=== PATIENT | male | born 1960 | race Caucasian/White ===

== ENCOUNTER → 2017-09-14 13:49 | Outpatient (REF) | payer MEDICARE, SELFPAY ==
[2017-09-14 19:10] LABS: Basophils # 0.1 K/mm3 (0-0.2); Basophils % 1.3 % (0.1-2.0); Eosinophils # 0.3 K/mm3 (0.0-0.4); Eosinophils % 4.3 % (0.1-12.0); Hematocrit 37.6 % (42.0-52.0); Lymphocytes # 1.9 K/mm3 (0.7-4.5); Lymphocytes % 29.6 K/mm3 (10-50); Mean Corpuscular HGB Conc 32.1 g/dL (31.8-35.4); Mean Corpuscular Volume 87.4 fl (80-94); Mean Platelet Volume 7.5 fl (7.4-10.4); Monocytes # 0.4 K/mm3 (0.1-1.0); Monocytes % 6.4 % (1.7-9.3); Neutrophils # 3.8 K/mm3 (1.8-7.8); Neutrophils % 58.4 % (37.0-80.0); Platelet Count 271 K/mm3 (142-424); Red Cell Distribution Width 13.4 % (11.5-17.5); White Blood Count 6.4 K/mm3 (4.8-10.8)
[2017-09-14 19:43] LABS: Alanine Aminotransferase 11 U/L (12-78); Albumin Level 3.9 gm/dL (3.4-5.0); Albumin/Globulin Ratio 1.4 (1.1-1.8); Alkaline Phosphatase 123 U/L (46-116); Anion Gap 15.6 mEq/L (5-15); Aspartate Amino Transferase 10 U/L (15-37); Bilirubin,Total 0.3 mg/dL (0.2-1.0); Blood Urea Nitrogen 18 mg/dL (7-18); Calcium 8.4 mg/dL (8.5-10.1); Carbon Dioxide 23 mmol/L (21.0-32.0); Chloride 109 mmol/L (98-107); Chol/HDL Ratio 7.1 (1-3.5); Cholesterol 184 mg/dL (140-200); Creatinine,Serum 1.12 mg/dL (0.70-1.30); Estimated Glomerular Filt Rate 67 ml/min (>60); GFR (African American) 81 ML/MIN (>60); Globulin 2.7 gm/dl (1.3-3.2); Glucose 115 mg/dL (74-106); HDL Cholesterol 26 mg/dL (27-67); LDL Cholesterol 103 mg/dL (0-130); Potassium 4.6 mmoL/L (3.5-5.1); Sodium 143 mmol/L (136-145); T4 (Thyroxine) 4.4 ug/dl (4.7-13.3); Thyroid Stimulating Hormone 3.14 uIU/ml (0.358-3.740); Total Protein,Serum 6.6 gm/dL (6.4-8.2); Triglycerides 277 mg/dL (30-200); VLDL Cholesterol 55 mg/dL (0-40)
[2017-09-17 17:12] LABS: Vitamin D 25 Hydroxy 23.6 ng/mL (30.0-100.0)
== END ==
LOC: LAB 13:49
PROVIDERS: Visit Provider Physician Assistant
DX: I10 Essential (primary) hypertension (principal); I25.10 Atherosclerotic heart disease of native coronary artery without angina pectoris; E78.5 Hyperlipidemia, unspecified; E55.9 Vitamin D deficiency, unspecified; F32.9 Major depressive disorder, single episode, unspecified; F41.9 Anxiety disorder, unspecified; Z28.21 Immunization not carried out because of patient refusal
CPT/HCPCS: 80053; 80061; 82652; 84436; 84443; 85025

== ENCOUNTER → 2017-12-14 14:54 | Outpatient (CLI) | payer MEDICARE, SELFPAY | PROVIDERS: Visit Provider Physician Assistant | DX: R07.9 Chest pain, unspecified (principal); I25.10 Atherosclerotic heart disease of native coronary artery without angina pectoris | CPT/HCPCS: 93005 ==

== ENCOUNTER → 2018-03-08 11:10 | Outpatient (REF) | payer MEDICARE, SELFPAY ==
[2018-03-08 18:02] LABS: Basophils # 0.1 K/mm3 (0-0.2); Eosinophils # 0.2 K/mm3 (0.0-0.4); Eosinophils % 2.6 % (0.1-12.0); Hematocrit 38.2 % (42.0-52.0); Hemoglobin 11.1 g/dL (14.1-18.0); Lymphocytes # 1.2 K/mm3 (0.7-4.5); Lymphocytes % 16.6 K/mm3 (10-50); Mean Corpuscular HGB Conc 29.2 g/dL (31.8-35.4); Mean Corpuscular Hemoglobin 24.4 pg (27.0-31.2); Mean Corpuscular Volume 83.8 fl (80-94); Mean Platelet Volume 7.6 fl (7.4-10.4); Monocytes # 0.6 K/mm3 (0.1-1.0); Monocytes % 7.7 % (1.7-9.3); Neutrophils # 5.3 K/mm3 (1.8-7.8); Neutrophils % 72.1 % (37.0-80.0); Platelet Count 285 K/mm3 (142-424); Red Blood Count 4.56 M/mm3 (4.60-6.20); Red Cell Distribution Width 14.6 % (11.5-17.5); White Blood Count 7.4 K/mm3 (4.8-10.8)
[2018-03-08 18:33] LABS: Alanine Aminotransferase 20 U/L (12-78); Albumin Level 3.6 gm/dL (3.4-5.0); Alkaline Phosphatase 100 U/L (46-116); Anion Gap 9.3 mEq/L (5-15); Aspartate Amino Transferase 20 U/L (15-37); Bilirubin,Total 0.3 mg/dL (0.2-1.0); Blood Urea Nitrogen 9 mg/dL (7-18); Calcium 8.8 mg/dL (8.5-10.1); Carbon Dioxide 29 mmol/L (21.0-32.0); Chloride 102 mmol/L (98-107); Chol/HDL Ratio 6.5 (1-3.5); Cholesterol 203 mg/dL (140-200); Digoxin 0.72 ng/mL (1.15-2.56); Estimated Glomerular Filt Rate 99 ml/min (>60); GFR (African American) 120 ML/MIN (>60); Globulin 3.5 gm/dl (1.3-3.2); Glucose 86 mg/dL (74-106); HDL Cholesterol 31 mg/dL (27-67); LDL Cholesterol 139 mg/dL (0-130); Potassium 4.3 mmoL/L (3.5-5.1); Sodium 136 mmol/L (136-145); T4 (Thyroxine) 5.2 ug/dl (4.7-13.3); Thyroid Stimulating Hormone 3.09 uIU/ml (0.358-3.740); Total Protein,Serum 7.1 gm/dL (6.4-8.2); Triglycerides 163 mg/dL (30-200); VLDL Cholesterol 33 mg/dL (0-40)
[2018-03-11 11:40] LABS: PSA, Free 0.14 ng/mL; Prostate Specific Ag 0.6 ng/mL (0.0-4.0)
[2018-03-11 11:42] LABS: Vitamin D 25 Hydroxy 35.5 ng/mL (30.0-100.0)
== END ==
LOC: LAB 11:10
PROVIDERS: Visit Provider Physician Assistant
DX: M51.36 Other intervertebral disc degeneration, lumbar region (principal); F32.9 Major depressive disorder, single episode, unspecified; I25.10 Atherosclerotic heart disease of native coronary artery without angina pectoris; E55.9 Vitamin D deficiency, unspecified; E78.5 Hyperlipidemia, unspecified; I10 Essential (primary) hypertension
CPT/HCPCS: 80053; 80061; 80162; 82652; 84153; 84154; 84436; 84443; 85025

== ENCOUNTER → 2019-04-17 13:29 | Outpatient (CLI) | payer MEDICARE, SELFPAY ==
[2019-04-17 13:54] LABS: Basophils # 0.1 K/mm3 (0-0.2); Basophils % 0.8 % (0.1-2.0); Eosinophils # 0.2 K/mm3 (0.0-0.4); Eosinophils % 2.2 % (0.1-12.0); Hematocrit 43.5 % (42.0-52.0); Hemoglobin 13.8 g/dL (14.1-18.0); Lymphocytes # 1.9 K/mm3 (0.7-4.5); Lymphocytes % 20.8 % (10-50); Mean Corpuscular HGB Conc 31.7 g/dL (31.8-35.4); Mean Corpuscular Hemoglobin 27.6 pg (27.0-31.2); Mean Platelet Volume 6.7 fl (7.4-10.4); Monocytes # 0.7 K/mm3 (0.1-1.0); Monocytes % 7.6 % (1.7-9.3); Neutrophils # 6.2 K/mm3 (1.8-7.8); Neutrophils % 68.7 % (37.0-80.0); Platelet Count 323 K/mm3 (142-424); Red Blood Count 5.01 M/mm3 (4.60-6.20); Red Cell Distribution Width 14.2 % (11.5-17.5)
[2019-04-17 14:47] LABS: Alanine Aminotransferase 40 U/L (12-78); Albumin Level 3.4 gm/dL (3.4-5.0); Alkaline Phosphatase 107 U/L (46-116); Anion Gap 13.8 mEq/L (5-15); Aspartate Amino Transferase 34 U/L (15-37); Bilirubin,Total 0.3 mg/dL (0.2-1.0); Blood Urea Nitrogen 11 mg/dL (7-18); Calcium 9.2 mg/dL (8.5-10.1); Carbon Dioxide 29 mmol/L (21.0-32.0); Chloride 104 mmol/L (98-107); Chol/HDL Ratio 6.2 (1-3.5); Cholesterol 210 mg/dL (140-200); Creatinine,Serum 0.84 mg/dL (0.70-1.30); Estimated Glomerular Filt Rate 93 ml/min (>60); GFR (African American) 113 ML/MIN (>60); Globulin 3.4 gm/dl (1.3-3.2); Glucose 100 mg/dL (74-106); HDL Cholesterol 34 mg/dL (27-67); LDL Cholesterol 115 mg/dL (0-130); Potassium 4.8 mmoL/L (3.5-5.1); Sodium 142 mmol/L (136-145); T4 (Thyroxine) 5.6 ug/dl (4.7-13.3); Thyroid Stimulating Hormone 3.19 uIU/ml (0.358-3.740); Total Protein,Serum 6.8 gm/dL (6.4-8.2); Triglycerides 306 mg/dL (30-200); VLDL Cholesterol 61 mg/dL (0-40)
== END ==
PROVIDERS: Visit Provider Nurse Practitioner Family
DX: F32.9 Major depressive disorder, single episode, unspecified (principal); I10 Essential (primary) hypertension; L03.039 Cellulitis of unspecified toe; Z00.00 Encounter for general adult medical examination without abnormal findings; I25.10 Atherosclerotic heart disease of native coronary artery without angina pectoris
CPT/HCPCS: 80053; 80061; 82652; 84436; 84443; 85025

== ENCOUNTER → 2019-10-16 13:50 | Outpatient (CLI) | payer MEDICARE, SELFPAY ==
[2019-10-16 14:43] LABS: Basophils # 0.1 K/mm3 (0-0.2); Basophils % 0.6 % (0.1-2.0); Eosinophils # 0.3 K/mm3 (0.0-0.4); Eosinophils % 2.8 % (0.1-12.0); Hematocrit 36.7 % (42.0-52.0); Hemoglobin 12.1 g/dL (14.1-18.0); Lymphocytes # 1.3 K/mm3 (0.7-4.5); Mean Corpuscular HGB Conc 32.9 g/dL (31.8-35.4); Mean Corpuscular Volume 85.1 fl (80-94); Mean Platelet Volume 7.4 fl (7.4-10.4); Monocytes # 0.8 K/mm3 (0.1-1.0); Monocytes % 9.2 % (1.7-9.3); Neutrophils # 6.5 K/mm3 (1.8-7.8); Neutrophils % 72.4 % (37.0-80.0); Platelet Count 270 K/mm3 (142-424); Red Blood Count 4.32 M/mm3 (4.60-6.20); Red Cell Distribution Width 13.8 % (11.5-17.5); White Blood Count 8.9 K/mm3 (4.8-10.8)
[2019-10-16 15:53] LABS: Alanine Aminotransferase 28 U/L (12-78); Albumin Level 2.9 g/dL (3.4-5.0); Alkaline Phosphatase 113 U/L (46-116); Anion Gap 16.7 mEq/L (5-15); Aspartate Amino Transferase 14 U/L (15-37); Bilirubin,Total 0.3 mg/dL (0.2-1.0); Blood Urea Nitrogen 10 mg/dL (7-18); Calcium 8.4 mg/dL (8.5-10.1); Carbon Dioxide 25 mmol/L (21.0-32.0); Chloride 107 mmol/L (98-107); Chol/HDL Ratio 4.4 (1-3.5); Cholesterol 153 mg/dL (140-200); Creatinine,Serum 0.84 mg/dL (0.70-1.30); Estimated Glomerular Filt Rate 93 ml/min (>60); GFR (African American) 113 ML/MIN (>60); Glucose 107 mg/dL (74-106); HDL Cholesterol 35 mg/dL (27-67); LDL Cholesterol 95 mg/dL (0-130); Potassium 3.7 mmoL/L (3.5-5.1); Sodium 145 mmol/L (137-145); Thyroid Stimulating Hormone 1.42 uIU/ml (0.358-3.740); Total Protein,Serum 5.9 g/dL (6.4-8.2); Triglycerides 114 mg/dL (30-200); VLDL Cholesterol 23 mg/dL (0-40)
[2019-10-18 15:07] LABS: PSA, Free 0.08 ng/mL; Prostate Specific Ag 0.5 ng/mL (0.0-4.0); Vitamin D 25 Hydroxy 32.4 ng/mL (30.0-100.0)
== END ==
PROVIDERS: Visit Provider Physician Assistant
DX: M51.36 Other intervertebral disc degeneration, lumbar region (principal); F32.9 Major depressive disorder, single episode, unspecified; I25.10 Atherosclerotic heart disease of native coronary artery without angina pectoris; I10 Essential (primary) hypertension; E78.5 Hyperlipidemia, unspecified; M79.642 Pain in left hand; M79.641 Pain in right hand; F17.200 Nicotine dependence, unspecified, uncomplicated; Z01.89 Encounter for other specified special examinations
CPT/HCPCS: 80053; 80061; 82652; 84153; 84154; 84436; 84443; 85025

== ENCOUNTER → 2021-01-07 13:49 | Outpatient (CLI) | payer MEDICARE, SELFPAY ==
[2021-01-07 14:17] LABS: Alanine Aminotransferase 16 U/L (12-78); Albumin Level 3.9 g/dl (3.5-5.0); Albumin/Globulin Ratio 1.4 (1.1-1.8); Alkaline Phosphatase 101 U/L (38-126); Anion Gap 11.2 mEq/L (5-15); Aspartate Amino Transferase 23 U/L (17-59); Bilirubin,Total 0.2 mg/dl (0.2-1.3); Blood Urea Nitrogen 8 mg/dl (9-20); Calcium 9.4 mg/dl (8.4-10.2); Carbon Dioxide 25 mmol/L (22.0-30.0); Chloride 107 mmol/L (98-107); Chol/HDL Ratio 6.2 (1-3.5); Cholesterol 241 mg/dl (140-200); Estimated Glomerular Filt Rate 86 ml/min (>60); GFR (African American) 104 ML/MIN (>60); Globulin 2.8 g/dL (1.3-3.2); Glucose 132 mg/dl (74-100); HDL Cholesterol 39 mg/dl (40-60); Potassium 4.2 mmoL/L (3.5-5.1); Sodium 139 mmol/L (136-145); Total Protein,Serum 6.7 g/dl (6.3-8.2); Triglycerides 183 mg/dl (30-150); VLDL Cholesterol 37 mg/dL (0-40)
[2021-01-07 14:27] LABS: Basophils # 0.1 K/mm3 (0-0.2); Basophils % 0.5 % (0.1-2.0); Eosinophils # 0.1 K/mm3 (0.0-0.4); Eosinophils % 0.9 % (0.1-12.0); Hematocrit 40.5 % (42.0-52.0); Hemoglobin 12.9 g/dL (14.1-18.0); Lymphocytes # 1.9 K/mm3 (0.7-4.5); Lymphocytes % 15.5 % (10-50); Mean Corpuscular HGB Conc 31.8 g/dL (31.8-35.4); Mean Corpuscular Hemoglobin 26.5 pg (27.0-31.2); Mean Corpuscular Volume 83.2 fl (80-94); Mean Platelet Volume 7.7 fl (7.4-10.4); Monocytes # 0.7 K/mm3 (0.1-1.0); Monocytes % 6.1 % (1.7-9.3); Neutrophils # 9.3 K/mm3 (1.8-7.8); Platelet Count 429 K/mm3 (142-424); Red Blood Count 4.87 M/mm3 (4.60-6.20); White Blood Count 12.1 K/mm3 (4.8-10.8)
[2021-01-07 14:28] LABS: Direct LDL Cholesterol 171.71 mg/dL (100-129)
[2021-01-07 14:35] LABS: 25-OH Vitamin D, Total 20.5 ng/mL (30-100)
[2021-01-07 14:36] LABS: Free T4 (Free Thyroxine) 0.89 ng/dl (0.78-2.19)
[2021-01-07 14:51] LABS: Prostate Specific Ag Screen 3.3 ng/ml (0.0-4.0); Thyroid Stimulating Hormone 3.01 uIU/mL (0.465-4.68)
[2021-01-07 16:05] LABS: Hemoglobin A1C 6.5 % (4.0-6.0)
== END ==
PROVIDERS: Visit Provider Physician Assistant
DX: E55.9 Vitamin D deficiency, unspecified (principal); E78.5 Hyperlipidemia, unspecified; F41.9 Anxiety disorder, unspecified; I10 Essential (primary) hypertension; I25.10 Atherosclerotic heart disease of native coronary artery without angina pectoris; Z12.5 Encounter for screening for malignant neoplasm of prostate; M79.641 Pain in right hand; M79.642 Pain in left hand; F32.9 Major depressive disorder, single episode, unspecified; R73.09 Other abnormal glucose
CPT/HCPCS: 80053; 80061; 82306; 83036; 84439; 84443; 85025; G0103

== ENCOUNTER → 2023-03-11 16:45 | Outpatient (CLI) | payer MEDICARE, SELFPAY ==
[2023-03-11 12:53] LABS: Basophils # 0.1 K/mm3 (0-0.2); Basophils % 0.6 % (0.1-2.0); Eosinophils # 0.6 K/mm3 (0.0-0.4); Eosinophils % 7.1 % (0.1-12.0); Hematocrit 43.4 % (42.0-52.0); Hemoglobin 13.8 g/dL (14.1-18.0); Lymphocytes # 1.5 K/mm3 (0.7-4.5); Lymphocytes % 17.7 % (10-50); Mean Corpuscular HGB Conc 31.7 g/dL (31.8-35.4); Mean Corpuscular Hemoglobin 26.6 pg (27.0-31.2); Mean Platelet Volume 7.9 fl (7.4-10.4); Monocytes # 0.5 K/mm3 (0.1-1.0); Monocytes % 5.6 % (1.7-9.3); Neutrophils # 5.9 K/mm3 (1.8-7.8); Platelet Count 363 K/mm3 (142-424); Red Blood Count 5.17 M/mm3 (4.60-6.20); Red Cell Distribution Width 14.4 % (11.5-17.5); White Blood Count 8.5 K/mm3 (4.8-10.8)
[2023-03-11 13:05] LABS: Creatinine,Urine Random 31 mg/dL (Not Estab.)
[2023-03-11 13:08] LABS: Microalbumin/Creatinine Ratio 26.7
[2023-03-11 13:31] LABS: Alanine Aminotransferase 19 U/L (12-78); Albumin Level 3.6 g/dl (3.5-5.0); Albumin/Globulin Ratio 1.3 (1.1-1.8); Alkaline Phosphatase 107 U/L (38-126); Anion Gap 11.2 mEq/L (5-15); Aspartate Amino Transferase 23 U/L (17-59); Bilirubin,Total 0.1 mg/dl (0.2-1.3); Blood Urea Nitrogen 9 mg/dl (9-20); Calcium 8.7 mg/dl (8.4-10.2); Carbon Dioxide 26 mmol/L (22.0-30.0); Chloride 107 mmol/L (98-107); Estimated Glomerular Filt Rate 136 ml/min (>60); GFR (African American) 164 ML/MIN (>60); Globulin 2.8 g/dL (1.3-3.2); Glucose 96 mg/dl (74-100); Potassium 4.2 mmoL/L (3.5-5.1); Sodium 140 mmol/L (136-145); Total Protein,Serum 6.4 g/dl (6.3-8.2)
[2023-03-11 13:50] LABS: 25-OH Vitamin D, Total 25.5 ng/mL (30-100)
[2023-03-11 14:03] LABS: Prostate Specific Ag Screen 2.3 ng/ml (0.0-4.0); Thyroid Stimulating Hormone 2.11 uIU/mL (0.465-4.68)
== END ==
PROVIDERS: PCP Physician Assistant; Visit Provider Physician Assistant
DX: E11.9 Type 2 diabetes mellitus without complications (principal); I10 Essential (primary) hypertension; E55.9 Vitamin D deficiency, unspecified; Z12.5 Encounter for screening for malignant neoplasm of prostate; Z79.84 Long term (current) use of oral hypoglycemic drugs
CPT/HCPCS: 80053; 82043; 82306; 82570; 83036; 84443; 85025; G0103

== ENCOUNTER 2024-07-18 16:39 | Outpatient (CLI) | payer MEDICARE, SELFPAY ==
[2024-07-18 19:09] LABS: Creatinine,Urine Random 46 mg/dL (Not Estab.)
== END 2024-07-18 23:59 | disposition home or self-care (01) ==
LOC: LAB.DROPOF 07-19 11:47
PROVIDERS: PCP Family Medicine; Visit Provider Family Medicine
DX: N39.0 Urinary tract infection, site not specified (principal); E11.9 Type 2 diabetes mellitus without complications
CPT/HCPCS: 82043; 82570; 87086; 87088; 87186

== ENCOUNTER 2024-08-07 14:20 | Outpatient (CLI) | payer MEDICARE, SELFPAY ==
[2024-08-07 18:36] LABS: Basophils # 0.1 K/mm3 (0-0.2); Basophils % 0.8 % (0.1-2.0); Eosinophils # 0.1 K/mm3 (0.0-0.4); Eosinophils % 1.3 % (0.1-12.0); Hematocrit 42.9 % (42.0-52.0); Hemoglobin 13.8 g/dL (14.1-18.0); Lymphocytes # 1.3 K/mm3 (0.7-4.5); Lymphocytes % 12.8 % (10-50); Mean Corpuscular HGB Conc 32.2 g/dL (31.8-35.4); Mean Corpuscular Hemoglobin 26.7 pg (27.0-31.2); Mean Corpuscular Volume 82.8 fl (80-94); Mean Platelet Volume 7.6 fl (7.4-10.4); Monocytes # 0.9 K/mm3 (0.1-1.0); Monocytes % 8.4 % (1.7-9.3); Neutrophils # 7.9 K/mm3 (1.8-7.8); Neutrophils % 76.8 % (37.0-80.0); Platelet Count 350 K/mm3 (142-424); Red Blood Count 5.18 M/mm3 (4.60-6.20); Red Cell Distribution Width 14.9 % (11.5-17.5); White Blood Count 10.3 K/mm3 (4.8-10.8)
[2024-08-07 19:15] LABS: Alanine Aminotransferase 9 U/L (12-78); Albumin Level 3.8 g/dl (3.5-5.0); Albumin/Globulin Ratio 1.2 (1.1-1.8); Alkaline Phosphatase 92 U/L (38-126); Anion Gap 11.5 mEq/L (5-15); Aspartate Amino Transferase 16 U/L (17-59); Bilirubin,Total 0.4 mg/dl (0.2-1.3); Blood Urea Nitrogen 9 mg/dl (9-20); Calcium 9.4 mg/dl (8.4-10.2); Carbon Dioxide 27 mmol/L (22.0-30.0); Chloride 106 mmol/L (98-107); Chol/HDL Ratio 5.4 (1-3.5); Cholesterol 212 mg/dl (140-200); Estimated Glomerular Filt Rate 113 ml/min (>60); GFR (African American) 137 ML/MIN (>60); Globulin 3.1 g/dL (1.3-3.2); Glucose 110 mg/dl (74-100); HDL Cholesterol 39 mg/dl (40-60); Potassium 4.5 mmoL/L (3.5-5.1); Sodium 140 mmol/L (136-145); Total Protein,Serum 6.9 g/dl (6.3-8.2); Triglycerides 110 mg/dl (30-150); VLDL Cholesterol 22 mg/dL (0-40)
[2024-08-07 19:26] LABS: Direct LDL Cholesterol 168.89 mg/dL (100-129)
== END 2024-08-07 23:59 | disposition home or self-care (01) ==
LOC: LAB.DROPOF 08-08 14:56
PROVIDERS: PCP Family Medicine; Visit Provider Family Medicine
DX: E78.5 Hyperlipidemia, unspecified (principal); E11.42 Type 2 diabetes mellitus with diabetic polyneuropathy; Z79.84 Long term (current) use of oral hypoglycemic drugs
CPT/HCPCS: 80053; 80061; 85025

== ENCOUNTER 2024-11-13 10:00 | Outpatient (CLI) | payer MEDICARE, SELFPAY ==
[2024-11-13 19:22] LABS: Basophils # 0.1 K/mm3 (0-0.2); Basophils % 0.7 % (0.1-2.0); Eosinophils # 0.4 K/mm3 (0.0-0.4); Eosinophils % 3.4 % (0.1-12.0); Hematocrit 42.6 % (42.0-52.0); Hemoglobin 13.2 g/dL (14.1-18.0); Lymphocytes # 1.5 K/mm3 (0.7-4.5); Lymphocytes % 14.3 % (10-50); Mean Corpuscular Hemoglobin 26.7 pg (27.0-31.2); Mean Corpuscular Volume 86.2 fl (80-94); Mean Platelet Volume 8.8 fl (7.4-10.4); Monocytes # 0.8 K/mm3 (0.1-1.0); Neutrophils # 7.9 K/mm3 (1.8-7.8); Neutrophils % 74.2 % (37.0-80.0); Platelet Count 381 K/mm3 (142-424); Red Blood Count 4.94 M/mm3 (4.60-6.20); Red Cell Distribution Width 14.6 % (11.5-17.5); White Blood Count 10.7 K/mm3 (4.8-10.8)
[2024-11-13 20:37] LABS: Chloride 106 mmol/L (98-107); Sodium 139 mmol/L (136-145)
[2024-11-13 20:38] LABS: Potassium 4.5 mmoL/L (3.5-5.1)
[2024-11-13 20:40] LABS: Alanine Aminotransferase 12 U/L (12-78); Albumin/Globulin Ratio 1.3 (1.1-1.8); Alkaline Phosphatase 115 U/L (38-126); Anion Gap 11.5 mEq/L (5-15); Aspartate Amino Transferase 16 U/L (17-59); Bilirubin,Total 0.6 mg/dl (0.2-1.3); Blood Urea Nitrogen 12 mg/dl (9-20); Carbon Dioxide 26 mmol/L (22.0-30.0); Cholesterol 159 mg/dl (140-200); Estimated Glomerular Filt Rate 85 ml/min (>60); GFR (African American) 102 ML/MIN (>60); Triglycerides 113 mg/dl (30-150); VLDL Cholesterol 23 mg/dL (0-40)
[2024-11-13 20:41] LABS: Calcium 9.3 mg/dl (8.4-10.2); Chol/HDL Ratio 5.1 (1-3.5); Glucose 123 mg/dl (74-100); HDL Cholesterol 31 mg/dl (40-60)
[2024-11-13 20:53] LABS: Direct LDL Cholesterol 98.79 mg/dL (100-129)
[2024-11-13 23:57] LABS: Hemoglobin A1C 6.2 % (4.0-6.0)
== END 2024-11-13 23:59 | disposition home or self-care (01) ==
LOC: LAB.DROPOF 11-14 09:58
PROVIDERS: PCP Family Medicine; Visit Provider Family Medicine
DX: E11.42 Type 2 diabetes mellitus with diabetic polyneuropathy (principal)
CPT/HCPCS: 80053; 80061; 83036; 85025

== ENCOUNTER 2024-12-06 06:47 | Outpatient (CLI) | payer MEDICARE, SELFPAY ==
--- NOTE | 2024-12-06 | CA_ITS ---
APPROVED REPORT EXAM: Comprehensive 2D, Doppler, and color-flow Echocardiogram Circulation Crew Leader: Tamika Hamm RVT Ht: 5 ft 9 in Wt: 182lbs BSA: 1.99 BP: 137/106 mmHg Indications: PRE-OP,CAD,DM,HTN,HLD,SMOKER Echo Enhancing Agent Indication: Endocardial border delineation Agent(s) / Amount(s) Used: Definity 2 cc 2D Dimensions LA Volume 43.00 mL LA Volume Index 21.61 mL/m2 (M/F) 16-34 M-Mode Dimensions RVDd 2.89 cm (0.9-2.6) LA Diam 3.96 cm (1.9-4.0) LVDd 5.50 cm (3.5-5.7) LVDs 4.01 cm (3.5-5.7) IVSd 0.68 cm (0.6-1.1) PWd 1.04 cm (0.6-1.1) EF (Teich) 52.20% FS 27.10% EDV (Teich) 147.40 mL TAPSE 1.93 (<1.7) ESV (Teich) 70.40 mL LV Diastology E Decel Time 200 (160-240 msec) E/A Ratio 0.5 Aortic Valve NAZIA Index 2.20 cm2/m2 AoV Peak Dale. 94.0 (50-130 cm/s) AO Peak GR. 3.50 mmHg AO Mean GR. 2.10 (<5 mmHg) AO VTI 16.5 (18-25 cm) NAZIA (VTI) 4.46 (2.5-4.5 cm2) Mitral Valve MV E Max Dale. 42.0 (40-130 cm/s) MV A Velocity 91.0 (40-130 cm/s) E/A Ratio 0.46 MV PHT 59.0 ms Pulmonary Valve PV Peak Velocity 69.0 (50-150 cm/s) Left Ventricle The left ventricle is normal size. 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 The left ventricular systolic function is moderately reduced. There is normal left ventricular wall thickness. There is moderate global hypokinesis. There is severe hypokinesis of the septal LV wall. The LV apex is akinetic. The left ventricular diastolic function is normal. No left ventricle thrombus noted on this study. LVEF is 30-35%. Right Ventricle The right ventricle is normal size. Right ventricle is mildly hypokinetic. Atria The left atrium size is normal. The right atrium size is normal. There is no Doppler evidence of interatrial shunt. Aortic Valve The aortic valve is mildly thickened. There is no aortic valvular stenosis. No aortic regurgitation is present. Mitral Valve The mitral valve is normal in structure. No evidence of mitral valve stenosis. Trace mitral regurgitation. Tricuspid Valve Tricuspid valve is grossly normal in structure and function. Trace tricuspid regurgitation. There is insufficient TR jet to estimate RVSP. Pulmonic Valve The pulmonary valve is normal in structure. Trace pulmonic regurgitation. Great Vessels The aortic root is normal in size. IVC is normal in size and collapses >50% with inspiration. Pericardium There is no pericardial effusion. Other Information Study Quality: Fair Conclusion Moderate reduction in LV systolic function (LVEF 30-35%). 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 No evidence of LV thrombus. Severe hypokinesis of the septal LV wall. The LV apex is akinetic. Normal RV size with mild reduction in RV function. No significant valvular stenosis or regurgitation. Electronically signed by : Holly Lancaster MD 12/06/2024 12:27:29
--- NOTE | 2024-12-06 | CA_ITS ---
APPROVED REPORT Exam: Pharmacologic Technologist: Kathryn Geller Ht: 5 ft 9 in Wt: 182 lbs BSA: 1.99 m2 HR: 77 bpm BP: 139/99 mmHg Stress Test Details Test: Lexiscan HR Resting HR: 77 bpm Max Heart Rate (APMHR): 155.525810 bpm Max HR Achieved: 100 bpm Target HR (85% APMHR): 131.618507 bpm % of APMHR: 64.52 Recovery HR: 85 bpm BP Resting BP: 139.0/99.0 mmHg Max BP: 167.0/108.0 mmHg Recovery BP: 148.0/98.0 mmHg ECG Stress ECG Conclusion Symptoms: Hunger pains noted. No chest pain or shortness of breath. Arrhythmias/Ectopy: PAC noted before infusion. PVC in recovery. ST-T Changes: Unremarkable with Lexiscan. Electronically signed by : Holly Lancaster MD 12/06/2024 12:47:16
--- NOTE | 2024-12-06 07:00 | NM_ITS ---
APPROVED REPORT Exam: Nuclear Stress Test Indication: cad, cabg, htn, diabetes, hyperlipidemia, tob use Patient Location: Outpatient Stress Tech: Kathryn Geller PR Tech:ARUN Ellison RT (R)(N)(M) Ht: 5 ft 9 in Wt: 182 lbs HR: 77 bpm BP: 139/99 mmHg BSA: 1.99 m2 TID: 0.35 BMI: 26.8 History: cad, cabg, htn, diabetes, hyperlipidemia, tob use Procedure: Patient received 0.4 mg of intravenous Lexiscan, resting heart rate 77 bpm, resting blood pressure 139/99 mmHg, with Lexiscan maximum heart rate achieved was 100 bpm which is % of the maximum predicted heart rate and blood pressure was 167/108 mmHg. With Lexiscan, patient denied any complaint of chest pain. Cardiac Stress and Resting SPECT Images: Cardiac Stress and Resting SPECT images were obtained using technetium 99m Myoview 31.3 mCi stress and 10.98 mCi at rest. Resting and stress imaging in supine and prone positions demonstrate a large sized, severe, predominantly fixed perfusion defect in the inferior, septal, anteroseptal, and apical LV jordan. There is a small region of reversibility towards the distal anterior and inferior LV jordan. Gated imaging demonstrates moderate reduction global LV systolic function. There is severe hypokinesis of the inferior LV wall. There is akinesis of the LV apex. LVEF is calculated at 34%. Conclusion: Large sized, severe, predominantly fixed perfusion defect in the inferior, septal, anteroseptal, and apical LV jordan. There is a small region of reversibility towards the distal anterior and inferior LV jordan. Findings are suggestive of reversible ischemia. Gated imaging demonstrates moderate reduction global LV systolic function. There is severe hypokinesis of the inferior LV wall. There is akinesis of the LV apex. LVEF is calculated at 34%. Electronically signed by : Holly Lancaster MD 12/06/2024 12:22:08
[2024-12-06] MEDS: SODIUM CHLORIDE 0.9% 10ML SYR (RAD ONLY) 10 ML IV ×2 (07:05→08:45)
[2024-12-06] MEDS: REGADENOSON 0.4MG/5ML SYRINGE 0.4 MG IV (08:45)
[2024-12-06] MEDS: DEFINITY US ECHO CONTRAST 2ML INJ 2 MG IV (09:42)
[2024-12-06] MEDS: ISOTOPE MYOVIEW (PER STUDY) 1 DOSE IV (10:39)
== END 2024-12-06 23:59 | disposition home or self-care (01) ==
LOC: RAD 06:48
PROVIDERS: PCP Family Medicine; Visit Provider Physician Assistant
DX: I25.118 Atherosclerotic heart disease of native coronary artery with other forms of angina pectoris (principal); I10 Essential (primary) hypertension
CPT/HCPCS: 78452; 93017; 93018; 93306; A9502; J2785; Q9957

== ENCOUNTER 2024-12-19 08:23 | Day surgery (SDC) | payer MEDICARE, SELFPAY ==
[2024-12-19] VITALS (18 sets, daily range): BP systolic 112–148; BP diastolic 64–98; PULSE 59–88; RESP 16–20; TEMP 36.1–36.7; O2SAT 91–98; BMI 26.6
--- NOTE | 2024-12-19 07:12 | IR_ITS ---
APPROVED REPORT Patient Location: Outpatient PROCEDURES Left heart catheterization Left ventriculogram Selective coronary angiogram Left internal mammary angiography Selective engagement of the saphenous vein graft to the diagonal artery Selective engagement of the saphenous vein graft to the right coronary INDICATION History of coronary bypass surgery, New onset LV dysfunction ejection fraction 30%, Coronary artery disease Informed consent was obtained prior to the procedure. COMPLICATIONS NONE Estimated Blood Loss: LESS THAN 10 ML TECHNIQUE One percent lidocaine used to anesthetize the right groin. The right femoral artery was accessed via the Seldinger technique and a 5 [place] sheath was placed in the right femoral artery. A JL 4, JR4 catheter were used to perform left heart catheterization, left ventriculogram selective coronary angiography as well as selective engagement of the 2 vein grafts and the left internal mammary artery. At the end of the procedure the patient was transferred to the postop holding area in stable condition for sheath removal. ANGIOGRAPHIC RESULTS The left main artery Normal The left anterior descending artery Proximally occluded within the stent The circumflex artery Large giving rise to a medium to large first obtuse marginal artery which has 10% and 20% proximal luminal irregularities. The circumflex artery itself is widely patent has an eccentric mid vessel 30% stenosis The right coronary artery Dominant proximally occluded The CLIFFORD ventriculogram reveals Reduced at 30 to 35% The left ventricular end-diastolic pressure 15 mmHg [place]AY to LAD is physiologically occluded Saphenous to diagonal artery is patent Saphenous to posterior descending artery is widely patent. There are scant collaterals going through the septal perforators into the LAD IMPRESSION Chronically occluded LAD Reduced ejection fraction Patent saphenous vein graft to diagonal artery and patent saphenous vein graft right coronary artery Minimal collateralization PLAN 1. Medical management for coronary artery disease 2. Recommend consideration of AICD 3. Standard therapy for ischemic heart disease and LV dysfunction Electronically signed by : Nigel Archibald MD 12/19/2024 13:04:25
[2024-12-19 08:47] LABS: Basophils # 0.1 K/mm3 (0-0.2); Basophils % 0.6 % (0.1-2.0); Eosinophils # 0.3 K/mm3 (0.0-0.4); Eosinophils % 2.2 % (0.1-12.0); Hematocrit 43.1 % (42.0-52.0); Hemoglobin 13.9 g/dL (14.1-18.0); Lymphocytes % 17.7 % (10-50); Mean Corpuscular HGB Conc 32.3 g/dL (31.8-35.4); Mean Corpuscular Hemoglobin 27.3 pg (27.0-31.2); Mean Corpuscular Volume 84.5 fl (80-94); Mean Platelet Volume 8.2 fl (7.4-10.4); Monocytes # 0.9 K/mm3 (0.1-1.0); Monocytes % 7.4 % (1.7-9.3); Neutrophils # 8.3 K/mm3 (1.8-7.8); Neutrophils % 71.8 % (37.0-80.0); Nucleated Red Blood Cells # 0 10^3/uL; Nucleated Red Blood Cells % 0 %; Platelet Count 365 K/mm3 (142-424); Red Cell Distribution Width 14.1 % (11.5-17.5); Red Cell Distribution Width-SD 43.6 fL; White Blood Count 11.5 K/mm3 (4.8-10.8)
[2024-12-19 08:54] LABS: Chloride 107 mmol/L (98-107)
[2024-12-19 08:55] LABS: Potassium 4.4 mmoL/L (3.5-5.1); Sodium 143 mmol/L (136-145)
[2024-12-19 08:58] LABS: Anion Gap 11.4 mEq/L (5-15); Blood Urea Nitrogen 8 mg/dl (9-20); Calcium 8.9 mg/dl (8.4-10.2); Carbon Dioxide 29 mmol/L (22.0-30.0); Creatinine Clearance Estimated 85 mL/min (50-200); Estimated Glomerular Filt Rate 75 ml/min (>60); GFR (African American) 91 ML/MIN (>60); Glucose 137 mg/dl (74-100)
[2024-12-19] MEDS: 0.9 % SODIUM CHLORIDE 500 ML 25 ML IV (10:38)
[2024-12-19] MEDS: diphenhydrAMINE 50MG/ML VIAL 50 MG IV (10:39)
[2024-12-19] MEDS: LIDOCAINE 1% 10ML MDV 10 ML IJ (10:39)
[2024-12-19] MEDS: HEPARIN 1,000 UNITS/500ML NS (CATH LAB) 3000 UNIT IV (10:39)
[2024-12-19] MEDS: FENTANYL 100MCG/2ML VIAL 50 MCG IV (10:57)
[2024-12-19] MEDS: MIDAZOLAM HCL 1MG/ML 5ML VIAL 1 MG IV (10:57)
[2024-12-19] MEDS: IOPAMIDOL-370 (76%);100ML BOTTLE 50 ML IV (13:32)
== END 2024-12-19 14:17 | disposition home or self-care (01) ==
LOC: CATHLAB 08:24
PROVIDERS: PCP Family Medicine; Visit Provider Internal Medicine
DX: I25.10 Atherosclerotic heart disease of native coronary artery without angina pectoris (principal); R94.39 Abnormal result of other cardiovascular function study; I10 Essential (primary) hypertension; E55.9 Vitamin D deficiency, unspecified; F17.210 Nicotine dependence, cigarettes, uncomplicated; Z95.0 Presence of cardiac pacemaker; E11.42 Type 2 diabetes mellitus with diabetic polyneuropathy; Z79.84 Long term (current) use of oral hypoglycemic drugs; Z79.899 Other long term (current) drug therapy
CPT/HCPCS: 80048; 85025; 93459; 99152; C1725; C1769; C1894; J1200; J1644; J3010; Q9967

== ENCOUNTER 2025-02-08 11:26 | Outpatient (CLI) | payer MEDICARE, SELFPAY ==
--- OUTSIDE RECORDS SUMMARY | 2025-02-08 11:30 | XMS_ITS | Data Portability ---
Author Organization [place] - SANIYA Douglas ROW[facility] CLOSED Address [address] [facility] [place] [address] Assessment No assessment recorded. Plan of Treatment Reminders Order Date Submit Date Provider Last Modified By Organization Details Last Modified Time Details Appointments None recorded. Lab None recorded. Referral None recorded. Procedures None recorded. Surgeries None recorded. Imaging XR, hand, 3 or more view - AP, lateral, and oblique 2016 017 [email or web address] Not available 03:50:54 Medication Orders Percocet 10 mg-325 mg tablet 2016 017 DBA_BACKF [employer], [address] [place] [address], [place], [place], [id number], 2 03:47:43 Patient TargetsNo targets recorded. Patient InstructionsNo instructions recorded. Reason for Referral None Reported. Results Created Date Observation Date Name Description Value Unit Range Abnormal Flag Note LastModifiedBy Organization Detail LastModifiedTime 02/05/20 17 02/04/2017 surgi ericka patho logy study surgical pathology procedure SEE BELOW Depar tment of Patho logy Final Surgi ericka Patho logy Repor t NAME: CRISITNA JEAN BAPTISTE PATH. :[id number] Copy to: Diagn osis: Right index finge r MP joint pseud ocaps ule: -Santo gn bone and soft tissu e with fibro sis and embed ded sutur e mater ial. -No evide nce of acute infla mmati on or atypi a. SOURC E OF SPECI MEN: BONE, RIGHT INDEX FINGE R CLINI ERICKA INFOR MATIO N: RIGHT INDEX FINGE R METAC ARPAL PHALA NGEAL JOINT PSEUD O CAPSU LE RIGHT INDEX FINGE R METAC ARPAL PHALA NGEAL ARTHR ITIS (OSTE O) Gross Descr iptio n: Recei praful in forma zaid label ed with the patie nt's name and desig nated righ t index finge r MP joint pseud ocaps ule are multi ple irreg ular white -sandy fibro us soft tissu e fragm ents, which have aggre gate dimen sions of 2.9 x 2.5 x 0.4 cm. There are three fragm ents of blue green sutur e mater ial admix ed with the tissu e fragm ents. Repre senta tive secti ons are submi tted in a singl e casse tte. JAB 02/04 04:38 PM Micro scopi c Descr iptio n: A micro scopi c exami natio n was perfo rmed with findi ngs as indic ated in the diagn osis. ANNA LAUGHLIN MD Desire d Out Date: 02/06 12:52 NOTE: This repor t was prepa red using voice -kit gniti on softw are and may conta in unint ended word subst ituti ons, addit ions or delet ions. Not Available [facility] [address] [facility], [place], [address], 02/06/2017 12:53:48 02/20/20 17 02/19/2017 XR, finge r(s) Eloisa kumar [facility] [address] [address] Patihernando t Name: CRISTINA Hood t : 958 Patien t Orderi ng Provid er: STEPHE N C UMANSK Y EXAM DATE: 2016 EXAM: XR RT FINGER (S) HISTOR Y: Follow up of prior surger y. COMPAR TORREY: Intrao perati ve images dated 02/05/20 17 FINDIN GS: Again visual ized is a dorsal plate bridgi ng the right second metaca rpal phalan geal joint. There is no eviden ce of loosen ing or compli cation . No acute fractu re is identi fied. There has been appare nt remova l of an arthro plasty in this joint. There is an arthro plasty in the third metaca rpopha langea l joint. IMPRES ANOOP: 1. The patien t is status post placem ent of a dorsal plate along the right second metaca rpopha langea l joint withou t eviden ce of loosen ing or compli cation . Interp reted By: Tia ladd MD Electr onical ly Signed By: Tia ladd MD on 10:09 AM [email or web address]_ [facility] [address] , [place], [address], 03/12/2022 03:50:27 03/05/20 17 03/05/2017 XR, hand, 3 or more view [facility] [address] [address] Erwin reyna Name: CRISTINA reyna : [phone] Erwin reyna Orderi ng Provid er: JAMES CHAPMAN Y EXAM DATE: 2016 EXAM: XR RT HAND 3 VIEWS HISTOR Y: Follow up of prior surger y. COMPAR TORREY: FINDIN GS: Again visual ized is a dorsal plate bridgi ng the right second metaca rpal phalan geal joint. There is no eviden ce of loosen ing or compli cation . No acute fractu re is identi fied. There is mild flexio n of this joint. There is an arthro plasty in the third metaca rpopha langea l joint. IMPRES ANOOP: 1. There is a dorsal plate along the right second metaca rpopha langea l joint withou t eviden ce of loosen ing or compli cation . Interp reted By: Tia aldd MD Electr onical ly Signed By: Tia ladd MD on 10:36 AM [email or web address]_ [facility] [place] [address], [place], [address], 03/12/2022 03:50:54 04/02/20 17 04/02/2017 XR, hand, [facility] [address] [address] Patihernando t Name: CRISTINA reyna : 89 Patihernando reyna Orderi ng Provid er: JAMES CHAPMAN Y EXAM DATE: 2016 EXAM: XR RT HAND 3 VIEWS HISTOR Y: Follow up of prior surger y. COMPAR TORREY: 017 FINDIN GS: Again visual ized is a dorsal plate bridgi ng the right second metaca rpopha langea l joint. There is no eviden ce of loosen ing or compli cation . No acute fractu re is identi fied. There is mild flexio n of this joint. There is a prior arthro plasty in the third metaca rpopha langea l joint. There are mild degene rative change s in the interp halang eal joints . There is a bone graft harves t site in the distal radius . IMPRES ANOOP: 1. There is a dorsal plate along the right second metaca rpopha langea l joint withou t eviden ce of loosen ing or compli cation . Interp reted By: iTa ladd MD Electr onical ly Signed By: Tia ladd MD on 9:58 AM [email or web address]_ [facility] [address], [place], [address], 03/12/2022 03:50:54 04/19/20 17 04/19/2017 CT, finge r(s), w/o contr ast [facility] stacy [address] [place] [address] Patien t Name: CRISTINA reyna : 89 Patihernando reyna Orderi ng Provid er: JAMES CHAPMAN Y EXAM DATE: 2016 EXAM: CT RT FINGER W/O CONTRA ST [facility] INFORM ATION: Right finger pain. Surger y follow -up IMAGES PROVID ED: CT right finger s COMPAR TORREY: Plain films 017 FINDIN GS: Axial imagin g of the right finger s was perfor med and the exam is review ed in multip le differ ent Carineritchie almaraz gs. The patien t has an arced screw plate and multip le penetr ating screws along the dorsal margin of the second finger extend ing from the second metaca rpal, niels sing the MCP joint, to the proxim al phalan x.. No defini te indica tion of hardwa re compli cation . No hardwa re loosen ing is apprec iated. The patien t has also had a previo us third MCP joint arthro plasty and no compli cation is noted. No soft tissue mass or fluid collec tion is detect ed. No discre te fractu re line is identi fied. IMPRES ANOOP: Postsu rgical change s involv ing the second and third finger s of the right hand with no defini te compli cation noted Interp reted By: Kulwinder Alicea MD Electr onical ly Signed By: Kulwinder Alicea MD on 1:28 PM [email or web address] [facility] [address] [facility], [place], [address], 03/12/2022 03:51:00 06/21/20 17 06/21/2017 XR, hand, 3 or more view Eloisa kumar [facility] [address] [place] [address] Erwin reyna Name: CRISTINA reyna : 89 Erwin reyna Orderi ng Provid er: JAMES CHAPMAN Y EXAM DATE: 2016 EXAM: XR RT HAND 3 VIEWS HISTOR Y: Right hand pain COMPAR TORREY: 017 FINDIN GS: Again visual ized is the dorsal plate and bridgi ng screws niels sing the right second MCP joints . No loosen ing or hardwa re compli cation is visibl e. There is no eviden ce of discre te fractu re. Previo us third MCP joint arthro plasty again noted and stable . Bone graft harves t site distal radius IMPRES ANOOP: 1. Stable arthro desis right second MCP joint. No hardwa re loosen ing or compli cation is visibl e Interp reted By: Kulwinder Alicea MD Electr onical ly Signed By: Kulwinder Alicea MD on 2016 10:40 AM [email or web address]_ [facility] [place] [address], [place], [address], 03/12/2022 03:50:54 10/06/19 18 10/06/2017 XR, hand, 3 or more view [facility] [address] [address] Patien t Name: CRISTINA reyna : 958 Patien t Orderi ng Provid er: JAMES Rivero EXAM DATE: 2017 EXAM: XR RT HAND 3 VIEWS HISTOR Y: Follow up of prior surger y. COMPAR TORREY: 2016 FINDIN GS: Again visual ized is a dorsal plate bridgi ng the right second metaca rpopha langea l joint. There is no eviden ce of loosen ing of the hardwa re. No acute fractu re is identi fied. There is unchan ged flexio n of this joint. There is a prior arthro plasty in the third metaca rpopha langea l joint. There are mild degene rative change s in the interp halang eal joints . There is a bone graft harves t site in the distal radius . IMPRES ANOOP: 1. There is a dorsal plate along the right second metaca rpopha langea l joint withou t eviden ce of loosen ing of the hardwa re. There is persis tent lucenc y in the joint. Interp reted By: Tia ladd MD Electr onical ly Signed By: Tia ladd MD on 018 2:37 PM [id number] [place] [address] [facility] [place] [address] , [place], [address], 03/12/2022 03:50:52 Result Notes None recorded. Problems Name Problem SNOMED Code Status Onset Date Resolution Date Notes Provider Name and Address Organization Details Recorded Time Osteoarthritis 933875059 Active 2016 VIJAY MARTÍNEZ MD [facility] [place], [address] [facility] 7 10:42:46 Problem Notes None recorded. Medical Equipment None Reported. Allergies Allergen ID Allergen Name Allergen Category Reaction Reaction Severity Criticality Documentation Date Start Date Code Code System Note Provider Name and Address Organization Details Recorded Time 814037 morphine sulfate medicatio n Not available Not available Not available 07/31/20162011 84170 RxNorm Comme nt: tesha Patton ed By: Dany sosa Date: 2011 10:46 :01 AM; Not Available [facility] 6 09:08:51 Medications Name Sig Start Date Stop Date Status Note LastModified by Organization Details LastModified Time Dilaudid 2 mg tablet Take 1 tablet every 4 hours by oral route. 2016 active Not Available Not Available Not Avai lable Multiple Vitamin capsule Daily active Duration: 30 days;Frequ ency: daily;Medi cation Descriptio n: multivitam in; Dosage:1; Route:oral ; refills:3; Quantity:1 00 capsule Not Available Not Available Not Available aspirin 325 mg tablet Daily active Duration: 30 days;Frequ ency: daily;Medi cation Descriptio n: aspirin; Dosage:1; Route:oral ; refills:0; Quantity:3 0 tablet Not Available Not Available Not Available atenolol 25 mg tablet Daily active Duration: 30 days;Frequ ency: daily;Medi cation Descriptio n: atenolol; Dosage:1; Route:oral ; refills:0; Quantity:3 0 tablet Not Available Not Available Not Available Plavix 75 mg tablet Daily active Frequency: daily;Medi cation Descriptio n: clopidogre l; Dosage:1; Route:oral ; refills:5; Quantity:3 0 tablet Not Available Not Available Not Available Percocet 10 mg-325 mg tablet TAKE 1 TABLETS BY MOUTH EVERY 6 HOURS NEEDED FOR PAIN 2016 active Not Available Not Available Not Avai lable Lipitor 40 mg tablet Every night at bedtime active Frequency: qhs;Medica tion Descriptio n: atorvastat in; Dosage:1; Route:oral ; refills:0; Quantity:3 0 tablet Not Available Not Available Not Available Effexor 100 mg tablet Three times a day active Duration: 10 days;Instr uctions: 1 in am 1/2 at noon and 1 in pm;Frequen cy: tid;Medica tion Descriptio n: venlafaxin e; Dosage:1; Route:oral ; refills:0; Quantity:6 0 tablet Not Available Not Available Not Available lisinopril 10 mg tablet Daily active Duration: 30 days;Frequ ency: daily;Medi cation Descriptio n: lisinopril ; Dosage:1; Route:oral ; refills:5; Quantity:3 0 tablet Not Available Not Available Not Available Restoril active Medication Descriptio n: temazepam; Route:oral ; refills:0 Not Available Not Available Not Available Vitals Date Recorded Body height Body mass index (BMI) Body weight Systolic blood pressure Diastolic blood pressure Provider Name and Address Organization Details Last Updated DateTime 10/06/2017 175.26 cm 31 kg/m2 49651.4 g 118 mm[Hg] 72 mm[Hg] Jody [facility] 8 14:48:27 Date Recorded Body height Body mass index (BMI) Body weight Provider Name and Address Organization Details Last Updated DateTime 03/05/2017 175.26 cm 31 kg/m2 12355.4 g Jody Perez [facility] 03/05/2017 10:11:08 Date Recorded Body height Body mass index (BMI) Body weight Systolic blood pressure Diastolic blood pressure Provider Name and Address Organization Details Last Updated DateTime 04/02/2017 175.26 cm 31 kg/m2 48166.4 g 122 mm[Hg] 76 mm[Hg] Jodysergio Perez [facility] 7 10:02:05 Date Recorded Body height Body mass index (BMI) Body weight Provider Name and Address Organization Details Last Updated DateTime 04/19/2017 175.26 cm 31 kg/m2 55510.4 g Jody Perez [facility] 04/19/2017 13:31:59 Date Recorded Body height Body mass index (BMI) Body weight Provider Name and Address Organization Details Last Updated DateTime 06/21/2017 175.26 cm 31 kg/m2 78003.4 g Jody Perez [facility] 06/21/2017 10:33:37 Social History Question Answer Notes LastModified by Organizat ion Details LastModified Time Tobacco Smoking Status Current Every Day Smoker Jody Perez [facility] 01/01/2017 09:28:28 Accident Related Injury No Information not available 01/01/2017 What Is Your Level Of Caffeine Consumption? Occasional Information not available 01/01/2017 Which Of Your Hands Is Dominant? Right Information not available 01/01/2017 Which Hand Is Involved? Right Information not available 01/01/2017 Rate The Severity Of Your Symptoms: (0-10 With 0=none And 10=worst Possible) 6 Information not available 01/01/2017 Have You Been Treated For This Problem Before? Yes Information not available 01/01/2017 Will This Be Filed As Workers' Compensation? No Information not available 01/01/2017 Marital Status Informatio n not available 01/01/2017 What Was The Date Of Your Most Recent Tobacco Screening? 10/06/2017 Information not available 10/24/2019 How Much Tobacco Do You Smoke? 1 PPD Information not available 01/01/2017 Has Tobacco Cessation Counseling Been Provided? Yes Information not available 01/01/2017 On What Date Was Tobacco Cessation Counseling Provided? 10/06/2017 Information not available 10/06/2017 How Many Years Have You Smoked Tobacco? 40 Information not available 01/01/2017 Work Related Injury? No Information not available 01/01/2017 Sex: Unknown Functional Status Question Answer Note LastModified by Organizat ion Details LastModified Time Do you use any illicit or recreational drugs? No Information not available 01/01/2017 What is your level of alcohol consumption? None Information not available 01/01/2017 Are you currently employed? No Information not available 01/01/2017 What is your occupation? disabled Information not available 01/01/2017 Mental Status None recorded. Family History Relationship Description Onset Age of this Age Resolved Age Notes LastModified by Organization Details LastModified Time Father No current problems or disability Not available 01/01 09:28:20 Mother No current problems or disability Not available 01/01 09:28:20 Medical History Condition Response Allergies/Hayfever N Anxiety/Depression Y Other N Gout N Thyroid Disease N Kidney Stones N Heart Conditions Y Hernia Y Migraines N COPD N Glaucoma N Pneumonia N Skin Problems N Immune System Disorder N Anesthesia Complications N Heart Attack (SC) Y Mental Illness N Neurological Problems N Diabetes N Rheumatic Fever N Bleeding Disorder N Arthritis Y Seizures/Epilepsy N Blood Clot N Tuberculosis N Genetic Disorder N AIDS/HIV N Cancer N Stroke N Asthma N Blood Thinners N Alcohol Overuse/Alcohol Abuse N Sleep Apnea N High Cholesterol Y Liver Disease N Included as Review of Systems N Hypertension Y Osteoporosis N Kidney Disease N Past Encounters Encounter ID Performer Location Encounter Start Date Encounter Closed Date Diagnosis/Indication Diagnosis SNOMED-CT Code Diagnosis ICD10 Code Diagnosis Note [id number] VIJAY MARTÍNEZ MD [facility] [address] [place] [address] 01/01/2017 08:52:06 01/01/2017 10:02:26 Osteoarthritis 066292990 M15.0 Right index finger MP joint,And I explained to him that the index finger MP joint AND can be a problem with replacemen t, Secondary to the heavy demands of Pinch and grasp. We have had nothing but trouble with the Pyrocarbon implant including early dislocatio n and now laxity to the radial collateral ligament.M y recommenda tion at this point would be arthrodesi s right index finger MP joint with iliac crest bone graft after Implant removal. He understand s that this will eliminate the motion at the MP joint and he is willing to trade motion for pain relief and Better alignment in the coronal plane. [id number] VIJAY MARTÍNEZ MD SURGERY SCHEDULE [address] [place] [address] 02/04/2017 08:46:01 02/04/2017 08:48:37 [id number] MD TA [facility] [address] [place] [address] 02/19/2017 09:38:07 02/19/2017 11:18:08 Osteoarthritis 463846909 M15.0 Right index finger MP joint, 2 weeks status post MP arthrodesi s, he talked me out of giving him a splint or cast, so new see him back in 2 weeks and make sure he has not moved too much. He was cautioned in protecting it, he was instructed in gently moving the PIP joint and the other digits. [id number] MD TA [facility] [address] [place] [address] 03/05/2017 09:34:39 03/05/2017 11:07:47 Postoperative care 981615332 Z48.89 4 weeks postop, no heavy lifting, recommend follow-up 4 weeks with new x-rays [id number] MD TA [facility] [address] [place] [address] 04/02/2017 09:38:27 04/02/2017 12:21:10 Postoperative care 861993536 Z48.89 8 weeks postop, new x-rays and determine, CT scan in 2 weeks followed by repeat exam, work on stretching wrist and index PIP joint [id number] MD TA [facility] [address] [place] [address] 04/19/2017 13:23:38 04/19/2017 14:54:27 Postoperative care 803382698 Z48.89 Osteoarthritis 704730314 M15.0 Tendon half weeks status post MP arthrodesi s, stable at this point. Limited lifting, follow-up 2 months with repeat x-ray consider bone grafting [id number] MD TA [facility]MORE [facility] [address] [place] [address] 06/21/2017 10:19:42 06/21/2017 13:03:27 Osteoarthritis 566243447 M15.0 20 weeks status post MP arthrodesi s, healed. Instructed in home exercise program for attending glides dorsally and breaking up scar tissue around the tendons. Follow-up 3 months, if fusion is adequate consider hardware removal plus or minus tenolysis if needed. Repeat x-rays in 3 months Hand pain 84477208 M79.6 41 [id number] VIJAY MARTÍNEZ MD [facility] [address] [address] 10/06/2017 14:18:34 10/06/2017 15:44:17 Osteoarthritis 524840074 M15.0 No tenolysis required, no hardware removal. He is satisfied for now, follow-up as needed with x-rays if symptoms develop and we can discuss whether it has fused completely Health Concerns Section Related Observation LastModified by Organization Detai ls LastModified Time None Recorded Concern Status LastModified by Organization Details LastModified Time None Recorded Advance Directives Directive None Recorded Payers Insurance Date Sequence Insurance Name Policy Number Policy Leblanc Covered Member ID Leblanc Member ID Guarantor Name 09/19/2017 1 [place] Cristina Robertomarshal [id number] Cristina Palomino Giorgi 07/13/2018 PAYMENT PLAN Cristina Robertomarshal Notes Date Note Type Note Provider Name and Address Organization Details Recorded Time 03/05/2017 text/html Hand SurgeryRepo rted bypatient.Hand Dominance:right Location:right Severity:pain level 7/10 Previous Surgery:surgical procedure:; 29 days ago; RIGHT INDEX FINGER REMOVAL IMPLANT MPJ, ARTHRODESIS RIGHT INDEX FINGER MP JOINT WITH ICBG Work Related:no Working:no; disabled Doing okay, 7 out of 10 pain VIJAY MARTÍNEZ [place], [address], [facility] 03/05/2017 10:49:43 04/02/2017 text/html Hand SurgeryRepo rted bypatient.Hand Dominance:right Location:right Severity:pain level 7/10 Previous Surgery:surgical procedure:; 8 weeks ago; RIGHT INDEX FINGER REMOVAL IMPLANT MPJ, ARTHRODESIS RIGHT INDEX FINGER MP JOINT WITH ICBG Work Related:no Working:retired from work Still painful, wrist and MP [place], [address], [facility] 04/02/2017 10:31:15 04/19/2017 text/html Hand SurgeryRepo rted bypatient.Hand Dominance:right Location:right Severity:pain level 3/10 Previous Surgery:surgical procedure:; 5.5 weeks ago; RIGHT INDEX FINGER REMOVAL IMPLANT MPJ, ARTHRODESIS RIGHT INDEX FINGER MP JOINT WITH ICBG Work Related:no Working:retired from work Reviewed, happy.Better motion of the digits,MP joint not painful VIJAY MARTÍNEZ MD [address] [place], [address], [facility] 04/19/2017 13:48:04 06/21/2017 text/html Hand SurgeryRepo rted bypatient.Hand Dominance:right Location:right Severity:pain level 5/10 Previous Surgery:surgical procedure:; 19 weeks ago; RIGHT INDEX FINGER REMOVAL IMPLANT MPJ, ARTHRODESIS RIGHT INDEX FINGER MP JOINT WITH ICBG Work Related:no Working:no 4 months status post right index finger MP fusion. Has pain when he hits it on anything and limited PIP range of motion. He is getting to the point where he can pinch slightly without pain, it still feels much better than it did before the surgery. VIJAY MARTÍNEZ MD [address] [place], [address], [facility] 06/21/2017 10:42:52 10/06/2017 text/html Hand SurgeryRepo rted bypatient.Hand Dominance:right Location:right Severity:pain level 3/10 Previous Surgery:surgical procedure:; removal implant right index MP joint Right index MP arthrodesis Distal radius bone graft Work Related:no Working:retired from work Very pleased with it VIJAY MARTÍNEZ MD [address] [place], [address], [facility] 10/06/2017 15:07:02
--- NOTE | 2025-02-08 14:30 | CA_ITS ---
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: RT Fredrick(R) Ht: 5 ft 9 in Wt: 176lbs BSA: 1.96 BP: 138/95 mmHg Indications: recheck EF from echo done 12/2024, currently in lifevest 2D Dimensions LVEF (Cano's) 41.40 % M: 52 - 72 LV Volume 106.90 mL M: 62 - 150 LV Volume Index 54.5 mL/m2 M: 34 - 74 EF AP4 40.80 % EF AP2 43.6 % EF BP 41.4 % GL Strain -11.4 % M-Mode Dimensions RVDd 2.85 cm (0.9-2.6) LVDd 5.59 cm (3.5-5.7) LVDs 4.59 cm (3.5-5.7) IVSd 0.53 cm (0.6-1.1) PWd 0.57 cm (0.6-1.1) EF (Teich) 36.70% FS 17.90% EDV (Teich) 153.00 mL ESV (Teich) 96.80 mL LV Diastology E Decel Time 173 (160-240 msec) E/A Ratio 0.9 Mitral Valve MV E Max Dale. 52.0 (40-130 cm/s) MV A Velocity 61.0 (40-130 cm/s) E/A Ratio 0.85 MV PHT 51.0 ms Other Information Study Quality: Fair Conclusion This is a limited TTE to evaluate for LV systolic function. Limited windows are obtained. The left ventricle is normal in size. There is increased LV wall thickness. There is moderate reduction in global LV systolic function. There is akinesis of the septal, inferoseptal, and anteroseptal LV jordan. LVEF is 30-35%. Electronically signed by : Holly Lancaster MD 02/09/2025 10:13:26
== END 2025-02-08 23:59 | disposition home or self-care (01) ==
LOC: RT 11:27
PROVIDERS: PCP Family Medicine; Visit Provider Physician Assistant
DX: I50.43 Acute on chronic combined systolic (congestive) and diastolic (congestive) heart failure (principal); I25.3 Aneurysm of heart; R94.31 Abnormal electrocardiogram [ECG] [EKG]; R93.1 Abnormal findings on diagnostic imaging of heart and coronary circulation
CPT/HCPCS: 93308

== ENCOUNTER 2025-05-29 09:48 | Outpatient (CLI) | payer MEDICARE, SELFPAY ==
--- OUTSIDE RECORDS SUMMARY | 2025-04-09 05:27 | XMS_ITS | Encounter Summary ---
Author Organization [employer] ([place], [place], [place], [place]) Address [address] [place] [address] Care Team Providers Care Delivery Table Feeder Name Role Phone Unavailable Primary Care Provider Unavailabl e Reason for Visit * Auth/Cert (Routine) Specialty Diagnoses / Procedures Referred By Johan t Referred To Contact Diagnoses Vesicointestinal fistula SEE PRIMARY DX Procedures AK COLECTOMY PRTL W/COLOPROCTOSTOMY AK CYSTOURETHROSCOPY W/URETERAL CATHETERIZATION RESECTION, RECTUM AND SIGMOID COLON, LOW ANTERIOR, LAPAROSCOPIC, WITH CONVERSION TO OPEN PROCEDURE IF INDICATED CYSTOSCOPY, WITH RETROGRADE PYELOGRAM AND URETEROSCOPY [facility] [address] [place] [address] Phone: tel: fax: [facility] [address] [place] [address] Phone: tel: fax: Referral ID Status Reason Start Date Expiration Date Visits Re quested Visits Authorized [id number] 1 1 Encounter Details Date Type Department Care Team (Late st Contact Info) Description 04/09/2025 5:27 AM EDT - 04/16/2025 10:45 AM EDT Hospital Encounter [facility] [address] [place] [address] Rebekah Lockhart MD [address] [place] [address] Lizzy Kramer MD [address] [place] [address] [address] [place] [address] Hilary Dumont MD [address] [facility] [address] [id number] Pete Davidson MD [address] [address] Vesicointestinal fistula Discharge Disposition: Left Against Medical Advice Social History Tobacco Use Types Packs/Day Years Used Date Smoking Tobacco: Every Day Cigarettes Smokeless Tobacco: Never Alcohol Use Standard Drinks/Week Comments Never 0 (1 standard drink = 0.6 oz pur e alcohol) Utilities Answer Date Recorded In the past 12 months, has t he electric, gas, oil, or water company threatened to shut off services in your home? No 04/09/2025 Interpersonal Safety Answer Date Record ed How often does anyone, mariusz landaverde family and friends, physically hurt you? Never 04/09/2025 How often does anyone, mariusz landaverde family and friends, insult or talk down to you? Never 04/09/2025 How often does anyone, mariusz landaverde family and friends, threaten you with harm? Never 04/09/2025 How often does anyone, mariusz landaverde family and friends, scream or curse at you? Never 04/09/2025 Housing Stability Answer Date Recorded What is your living situation today? I have a [facility] place to live 04/09/[address] you li ve. Do you have problems with any of the following? None of the above 04/09/2025 Food Insecurity Answer Date Recorded Within the past 12 months, y ou worried that your food would run out before you got money to buy more. Never true 04/09/2025 Within the past 12 months, t he food you bought just didn't last and you didn't have money to get more. Never true 04/09/2025 Transportation Needs Answer Date Record ed In the past 12 months, has l ack of reliable transportation kept you from medical appointments, meetings, work or from getting things needed for daily living? No 04/09/2025 Financial Resource Strain Answer Date R ecorded How hard is it for you to pa y for the very basics like food, housing, medical care, and heating? Would you say it is: Not hard at all 04/09/2025 Employment Answer Date Recorded Do you want help finding or keeping work or a job? I do not need or want help 04/09/2025 Family and Community Support Answer Gus e Recorded If for any reason you need h elp with day-to-day activities such as bathing, preparing meals, shopping, managing finances, etc., do you get the help you need? I don't need any help 04/09/2025 Feeling Lonely or Isolated 0 04/09 Educational Attainment Answer Date Babak rded Do you speak a language other than [place] [employer] [facility]? No 04/09/2025 Do you want help with school or training? For example, starting or completing job training or getting a high school diploma, GED or equivalent. No 04/09/2025 Physical Activity Answer Date Recorded Number of minutes of exercise per week 0 04/09/2025 Self Management Answer Date Recorded Because of a physical, menta l, or emotional condition, do you have serious difficulty concentrating, remembering, or making decisions? (5 years or older) No 04/09/2025 Because of a physical, menta l, or emotional condition, do you have difficulty doing errands alone such as visiting a doctor's office or shopping? (15 years or older) No 04/09/2025 Substance Use Answer Date Recorded How many times in the past y ear have you used prescription drugs for non-medical reasons? Never 04/09/2025 How many times in the past year have you used [place] legal drugs? Never 04/09/2025 Mental Health Answer Date Recorded Calculation of above two rows 0 Sex and Gender Information Value Date Recorded Sex Assigned at Not on file Legal Sex Male 1:06 PM CDT Gender Identity Not on file Sexual Orientation Not on file documented as of this encounter Last Filed Vital Signs Vital Sign Reading Time Taken Comments Blood Pressure 131/93 04/16/2025 8:05 AM EDT Pulse 92 04/16/2025 8:05 AM EDT Temperature 37.5 C (99.5 F) 04/16/2025 8:05 AM EDT Respiratory Rate 26 04/16/2025 8:05 AM EDT Oxygen Saturation 94% 04/16/2025 8:05 AM EDT Inhaled Oxygen Concentration - - Weight 80.5 kg (177 lb 6.1 oz) 04/09/2025 5:44 P M EDT Height 175.3 cm (5' 9.02 ) 04/09/2025 5:44 PM ED T Body Mass Index 26.18 04/09/2025 5:44 PM EDT documented in this encounter Medications at Time of Discharge aspirin 325 MG EC tablet Take 1 tablet (325 mg total) by mouth nightly. atorvastatin (LIPITOR) 40 MG tablet Take 1 tablet (40 mg total) by mouth nightly. furosemide (LASIX) 20 MG tablet Take 1 tablet (20 mg total) by mouth daily as needed (for Edema/Swelling). 01/09/2025 metFORMIN (GLUCOPHAGE-XR) 500 MG 24 hr tablet Take 1 tablet (500 mg total) by mouth daily with dinner. metoprolol succinate (TOPROL-XL) 50 MG 24 hr tablet Take 1 tablet (50 mg total) by mouth nightly. 12/14/2024 QUEtiapine (SEROquel) 200 MG tablet Take 1 tablet (200 mg total) by mouth 2 (two) times daily. 12/16/2023 tiZANidine (ZANAFLEX) 4 MG tablet Take 1 tablet (4 mg total) by mouth every 8 (eight) hours as needed for muscle spasms. 12/16/2023 spironolactone (ALDACTONE) 25 MG tablet Take 1 tablet (25 mg total) by mouth nightly. 12/26/2024 valsartan (DIOVAN) 40 MG tablet Take 1 tablet (40 mg total) by mouth 2 (two) times daily This has replaced lisinopril--do NOT take both medications together . 03/06/2025 5 documented as of this encounter Progress Notes * Murtaza Amato MD - 04/16/2025 10:35 AM EDT Images from the original note were not included. [facility] INFECTIOUS DISEASE PROGRESS NOTE Levar Rand 1960 [id number] Date of consult: 04/10/2025 Admit date: 04/09/2025 Requesting Provider: @[email or web address]@ Evaluating physician: Murtaza Amato MD Reason for Consultation: Colovesical fistula repair 04/09/2025, groin abscess left I and D 04/11/25 Chief Complaint: Above Subjective History of present illness: Patient is a 65 y.o. Yr old male with a history of diabetes mellitus type 2, essential hypertension, hyperlipidemia, ongoing smoking, perforated diverticulitis with Zina procedure 2011 with reversal 2011, incisional hernia status post ventral hernia repair with Broughton-Pablo 2013, and colovesical fis sandra. Possible need for pacemaker but held off because of fistula. The patient was admitted for an elective repair to [facility] 04/09/2025. He underwent surgery with Dr. Rebekah Lockhart, and Dr. Asim Cancino on 04/09/2025. There was no rebekah abscess or significant purulence noted. Therewas the presence of mesh noted from previous repairs of inguinal and abdominal hernias. Mesh was partially excised. I was consulted on 04/10/2025 for further evaluation and treatment. No reported history of ill contacts, zoonotic exposures, TB, HIV, significant travel, immunocompromised state. 04/11/2025 history reviewed. Slow improvement. No high fever. Status post repair colovesical fistula with mesh resection. Continues on ceftriaxone and metronidazole until 04/19. Occasional abdominal pain. CT scan of the abdomen and pelvis on 04/11 with left inguinal canal fluid which may be abscess. 04/12/2025 history reviewed. Status post aspiration left groin abscess 04/11, status post colovesical fistula repair with mesh 04/09. No high fever. Tolerating ceftriaxone and metronidazole until 04/19. MRSA screen negative, 04/11 culture gram-positive cocci in pairs. 04/13/2025 history reviewed. Continues to improve. Tolerating metronidazole and ceftriaxone until 04/19 and reassess. 04/11 left groin aspiration culture positive for gram-positive cocci in pairs. Negative MRSA screen. Status post colovesical fistula repair with mesh on 04/09. 04/16/2025 history reviewed. Continues on ceftriaxone and metronidazole till 04/19 and reassess. Leftgroin aspiration grew Klebsiella (sensitive to ceftriaxone), Enterococcus (sensitivity pending), Clostridium. From 04/11. Also para Bacteroides. Adding daptomycin. Was reported to be threatening to leave AMA. Past Medical History: Diagnosis Date Anxiety CAD (coronary artery disease) Colovesical fistula Depression Diabetes (HCC) High blood pressure High cholesterol Hypertension Kawasaki disease (HCC) Vitamin D deficiency Past Surgical History: Procedure Laterality Date COLON SURGERY patient stated he had colon surgery (colostomy with reversal) CORONARY ANGIOPLASTY WITH STENT PLACEMENT CORONARY ARTERY BYPASS GRAFT CYSTOSCOPY,INSERTION URETERAL STENTS Bilateral 04/09/2025 Procedure: CYSTOSCOPY, WITH URETERAL STENT INSERTION; Surgeon: Rebekah Lockhart MD; Location: [facility]; Service: General Surgery; Laterality: Bilateral; HAND SURGERY Bilateral HERNIA REPAIR LAPAROSCOPY,LOW ANTERIOR RESECTION N/A 04/09/2025 Procedure: (OPEN LOW ANTERIOR RESECTION WITH TAKEDOWN OF COLOVESICAL FISTULA DIVERTING LOOP ILEOSTOMY VENTRAL HERNIA REPAIR AND CYSTOSCOPY AND STENTS) EXPLANTS OF MESH, REDO LAR,EX LAP LYSIS OF ADHESIONS; Surgeon: Rebekah Lockhart MD; Location: [facility]; Service: General Surgery; Laterality: N/A; Pediatric History Patient Parents Not on file Other Topics Concern Not on file Social History Narrative Not on file Positive for smoking, no alcohol or drug use family history is not on file. Reviewed and unremarkable No Known Allergies There is no immunization history on file for this patient. Medication: @Scheduled Meds: atorvastatin 40 mg oral Every Night 40 mg at 04/15/252011 cefTRIAXone 2 g intravenous Q24H IVPB Stopped at 04/16/25 0907 enoxaparin 40 mg subcutaneous Q24H 40 mg at 04/15/25 1635 hydrogen peroxide topical BID Given at 04/15/252021 [Held by provider] metoprolol succinate 50 mg oral Every Night metroNIDAZOLE 500 mg intravenous Q6H AWA IVPB Stopped at 04/16/25 0714 pantoprazole 40 mg intravenous Daily 40 mg at 04/15/25 0951 QUEtiapine 200 mg oral Every Night 200 mg at 04/15/252011 tiZANidine 4 mg oral TID 4 mg at 04/15/252011 Continuous Infusions: Current Facility-Administered Medications Medication Dose Route Frequency Provider Last Rate Last Admin atorvastatin (LIPITOR) tablet 40 mg 40 mg oral Every Night Ismaeel Mercedes, DO 40 mg at 04/15/252011 cefTRIAXone (ROCEPHIN) 2 g in sodium chloride 0.9 % (NS) 50 mL SHANELLE IVPB 2 g intravenous Q24H MD Pietro IVPB Stopped at 04/16/25 0907 dextrose 50% (D50W) injection 25 g 25 g intravenous Q15 Min PRN Ismaeel Mercedes, DO diazePAM (VALIUM) injection 2.5 mg 2.5 mg intravenous Q6H PRN Rebekah Lockhart MD 2.5 mg at 04/10/25 1518 enoxaparin (LOVENOX) syringe 40 mg 40 mg subcutaneous Q24H Rebekah Lockhart MD 40 mg at 04/15/25 1635 glucagon injection 1 mg 1 mg intraMUSCULAR Q15 Min PRN Ismaeel Mercedes, DO glucose chew tab 16 g 16 g oral Q15 Min PRN Ismaeel Mercedes, DO hydrogen peroxide external solution 3% topical BID Rebekah Lockhart MD Given at 04/15/252021 HYDROmorphone (DILAUDID) injection 0.4 mg 0.4 mg intravenous Q4H PRN Hilary Dumont MD 0.4 mg at 04/15/252011 lactated Ringer's infusion 75 mL/hr intravenous Continuous Rebekah Lockhart MD 75 mL/hr at 04/15/252011 75 mL/hr at 04/15/252011 [Held by provider] metoprolol succinate (TOPROL-XL) 24 hr tablet 50 mg 50 mg oral Every Night MD Inocencio metroNIDAZOLE (FLAGYL) IVPB 500 mg in sodium chloride 0.9 % 100 mL (premix) 500 mg intravenous Q6H [facility] Rebekah Lockhart MD IVPB Stopped at 04/16/25 0714 morphine injection 4 mg 4 mg intravenous Q4H PRN Rebekah Lockhart MD 4 mg at 04/16/25 0424 nicotine (NICODERM CQ) 21 mg/24 hr patch 1 patch 1 patch transdermal Daily PRN Ismaeel Mercedes, DO ondansetron (ZOFRAN-ODT) disintegrating tablet 4 mg 4 mg oral Q8H PRN Rebekah Lockhart MD Or ondansetron (ZOFRAN) injection 4 mg 4 mg intravenous Q8H PRN Rebekah Lockhart MD oxyCODONE (ROXICODONE) immediate release tablet 5 mg 5 mg oral Q4H PRN Hilary Dumont MD 5 mg at 04/15/25 2246 pantoprazole (PROTONIX) injection 40 mg 40 mg intravenous Daily Rebekah Lockhart MD 40 mg at 04/15/25 0951 QUEtiapine (SEROquel) tablet 200 mg 200 mg oral Every Night Ismaeel Mercedes, DO 200 mg at 04/15/252011 sodium chloride 0.9% (NS) bolus 1,000 mL intravenous PRN Rebekah Lockhart MD tiZANidine (ZANAFLEX) tablet 4 mg 4 mg oral TID Ismaeel Mercedes, DO 4 mg at 04/15/252011 PRN Meds:.@[email or web address]@ Please refer to the medical record for a full medication list Review of Systems: Constitutional-- No Fever, chills or sweats. Appetite good, and no malaise. No fatigue. HEENT-- No new vision, hearing or throat complaints. No epistaxis or oral sores. Denies odynophagiaor dysphagia. No odynophagia or dysphagia. No headache, photophobia or neck stiffness. CV-- No chest pain, palpitation or syncope Resp-- No SOB/cough/Hemoptysis GI- No nausea, vomiting, or diarrhea. No hematochezia, melena, or hematemesis. Denies jaundice or chronic liver disease. -- No dysuria, hematuria, or flank pain. Denies hesitancy, urgency. Lymph- no swollen lymph nodes in neck/axilla or groin. Heme- No active bruising or bleeding; no Hx of DVT or PE. MS-- no swelling or pain in the bones or joints of arms/legs. No new back pain. Neuro-- No acute focal weakness or numbness in the arms or legs. No seizures. Skin--No rashes or lesions, except left groin Physical Exam: Vital Signs Temp: [97.9 ??F (36.6 ??C)-100 ??F (37.8 ??C)] 99.5 ??F (37.5 ??C) Pulse: [75-92] 92 Resp: [16-30] 26 BP: (95-137)/(60-93) 131/93 Blood pressure (!) 131/93, pulse 92, temperature 99.5 ??F (37.5 ??C), resp. rate 26, height 1.753 m(5' 9.02 ), weight 80.5 kg (177 lb 6.1 oz), SpO2 94%. GENERAL: Awake and alert, in minor distress. Appears older than stated age. Resting in chair. HEENT: Normocephalic, atraumatic. Oropharynx without thrush. Dentition in fair repair. No cervical adenopathy. No neck masses. Ears externally normal, Nose externally normal. Trachea midline. EYES: No conjunctival injection. No icterus. EOM full. LYMPHATICS: No lymphadenopathy of the neck or axillary or inguinal regions. HEART: No murmur, gallop, or pericardial friction rub. Reg rate rhythm. No JVD. LUNGS: Clear to auscultation and percussion. No respiratory distress, no use of accessory muscles. No rales or rhonchi. ABDOMEN: Soft, nontender, nondistended. No appreciable HSM. Bowel sounds normal. Obese. SKIN: Warm and dry without cutaneous eruptions. No nodules. Surgical dressings in place abdomen andgroin. PSYCHIATRIC: Mental status lucid. No confusion. EXT: No cellulitic change. Normal ROM. NEURO: Oriented to name, nonfocal Results Review: I reviewed the patient's new clinical results. Recent Labs Lab(s) Units 04/16/25 0421 04/15/25 0511 04/14/25 0454 WBC K/??L 12.8* 10.9* 9.0 HGB GM/DL 9.2* 9.1* 8.2* HCT % 28.6* 27.7* 25.3* PLT K/CU MM 345 288 250 Recent Labs Lab(s) Units 04/16/25 0421 NA meq/L 139 K meq/L 3.6 CL meq/L 110 CO2 meq/L 22 BUN mg/dL 6.0* CREATININE mg/dL 0.71* GLUCOSE mg/dL 103 CALCIUM mg/dL 7.9* Recent Labs Lab(s) Units 04/12/25 0406 ALKPHOS U/L 52 BILITOT mg/dL 0.5 ALT U/L <7 AST U/L 10* No results for input(s): SEDRATE in the last 168 hours. No results for input(s): CRP in the last 168 hours. No results for input(s): VANCOTROUGH , VANCORANDOM in the last 168 hours. No results for input(s): LACTATE in the last 168 hours. Estimated Creatinine Clearance: 72.7 mL/min (A) (by C-G formula based on SCr of 0.71 mg/dL (L)). @LABRCNTIP (cpk,ast,alt,alkaline phosphatase)@ Microbiology: Microbiology Results (last 7 days) Procedure Component Value Units Date/Time Anaerobic Culture [[id number]] (Abnormal) Collected: 04/11/251625 Order Status: Completed Specimen: Body Fluid from Retroperitoneum Updated: 04/16/25 0719 Result Parabacteroides distasonis Body Fluid Culture + Gram Stain [[id number]] (Abnormal) (Susceptibility) Collected: 04/11/251625 Order Status: Completed Specimen: Body Fluid from Retroperitoneum Updated: 04/16/25 0653 Result Light Growth Enterococcus faecium Comment: Sent to reference lab for sensitivity testing. Light Growth Klebsiella pneumoniae Light Growth Clostridium tertium Comment: No susceptibility performed Gram Stain Result Moderate gram positive cocci in pairs Many WBCs Micro Reference Lab [[id number]] Collected: 04/11/251625 Order Status: Sent Specimen: Body Fluid from Retroperitoneum Updated: 04/16/25 0652 AFB Culture And Stain [[id number]] Collected: 04/11/251625 Order Status: Completed Specimen: Body Fluid from Retroperitoneum Updated: 04/12/25 1419 AFB Smear No acid fast bacilli seen MRSA Screen [[id number]] (Normal) Collected: 04/11/25 164 Order Status: Completed Specimen: Nasal from Nares Updated: 04/11/25 1922 MRSA by PCR [facility] MRSA Not Detected by PCR Radiology: Radiology Results (last 3 days) Procedure Component Value Units Date/Time CT ABDOMEN/PELVIS WITH IV CONTRAST Standard Protocol [[id number]] Collected: 04/15/25 163 Order Status: Completed Updated: 04/15/251645 Narrative: CT SCAN OF THE ABDOMEN AND PELVIS WITH CONTRAST HISTORY: Bladder fistula, mass. PROCEDURE: Axial CT images were obtained from the lung bases to the pubic symphysis with IV contrast administration. Oral contrast was also given. Coronal and sagittal reformatted images were also obtained and reviewed. This study was performed with techniques to keep radiation doses as low as reasonably achievable, (ALARA). Individualized dose reduction techniques using automated exposure control or adjustment of mA and/or kV according to the patient size were employed. COMPARISON: April 11, 2025. FINDINGS: LOWER CHEST: The heart is normal in size. Mild bilateral lower lobe atelectasis is seen with small pleural effusions. ABDOMEN/PELVIS: Liver, gallbladder and bile ducts: A small cyst is seen at the right liver dome. Several gallstones are seen in the gallbladder with mild gallbladder wall thickening. No significant biliary ductal dilatation. Adrenal glands: The adrenal glands are morphologically unremarkable without suspicious lesion. Kidneys, ureters and urinary bladder: A 25 mm cyst is seen at the anterior aspect of the right kidney, stable. Bilateral parapelvic renal cysts are present. No hydronephrosis. A Torres catheter is present in the bladder. There is significant bladder wall thickening and a small amount of air within the bladder. Spleen: The spleen is normal in size. Pancreas: The pancreas is unremarkable. Gastrointestinal system and mesentery: A right abdomen ostomy is present. Postoperative changes are seen in the distal sigmoid colon. Multiple fluid-filled bowel loops are seen. There is no evidence of bowel obstruction. The appendix is unremarkable. Mild diffuse mesenteric stranding is noted. Lymph nodes: No pathologically enlarged abdominal or pelvic lymph nodes are present. Vessels: The abdominal aorta is normal in caliber. The celiac trunk, superior mesenteric artery, inferior mesenteric artery and their branch vessels appear grossly patent. The superior mesenteric vein, splenic vein and main portal veins are patent. The inferior vena cava and hepatic veins are unremarkable. Peritoneum: No free intraperitoneal fluid or pneumoperitoneum. Pelvic viscera: There has been interval placement of a left lower pelvis straining with significant improvement in the left lower pelvis/inguinal air and fluid collection. A second left pelvic drain is again identified. Body wall: Postoperative changes are seen in the anterior abdomen and pelvic wall. No significant body wall hernias. Mild anasarca is noted. Bones: No acute fracture. Bilateral L5 pars defects are seen with grade 1 anterolisthesis of L5 on S1. Moderate degenerative changes are noted in the spine. Impression: Interval placement of a left pelvic drain with marked improvement in the left lower pelvis air and fluid collection. Otherwise no significant change since the prior CT. Cholelithiasis. 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 Contrast is seen within the urinary bladder from presumed CT cystogram. Sagittal and coronal reformatted images were also obtained. This study was performed with techniques to keep radiation doses as low as reasonably achievable, (ALARA). Individualized dose reduction techniques using automated exposure control or adjustment of mA and/or kV according to the patient size were employed. Contrast is seen extending from the anterior border of the urinary bladder to the left lateral lower pelvis fluid collection, well visualized on series 2 images 32-34. A drain is present in the lateral aspect of the cavity in the left lower pelvis, with significant interval improvement since the prior CT. A second left pelvic drain is present. A Torres catheter is present in the bladder. Postoperative changes are seen in the distal sigmoid colon. There is no evidence of bowel obstruction. No acute bony abnormality is identified. Degenerative changes are noted in the lower lumbar spine. There are bilateral L5 pars defects. IMPRESSION: Contrast leakage from the anterior bladder to the left lateral lower pelvic fluid collection consistent with a fistula. A drain is present within the left lower pelvis fluid collection with significant improvement since the prior CT. Images reviewed, interpreted, and dictated by Gunnar De La Paz MD CT pelvis without IV contrast [[id number]] Collected: 04/15/25 1632 Order Status: Completed Updated: 04/15/25 1646 Narrative: CT SCAN OF THE ABDOMEN AND PELVIS WITH CONTRAST HISTORY: Bladder fistula, mass. PROCEDURE: Axial CT images were obtained from the lung bases to the pubic symphysis with IV contrast administration. Oral contrast was also given. Coronal and sagittal reformatted images were also obtained and reviewed. This study was performed with techniques to keep radiation doses as low as reasonably achievable, (ALARA). Individualized dose reduction techniques using automated exposure control or adjustment of mA and/or kV according to the patient size were employed. COMPARISON: April 11, 2025. FINDINGS: LOWER CHEST: The heart is normal in size. Mild bilateral lower lobe atelectasis is seen with small pleural effusions. ABDOMEN/PELVIS: Liver, gallbladder and bile ducts: A small cyst is seen at the right liver dome. Several gallstones are seen in the gallbladder with mild gallbladder wall thickening. No significant biliary ductal dilatation. Adrenal glands: The adrenal glands are morphologically unremarkable without suspicious lesion. Kidneys, ureters and urinary bladder: A 25 mm cyst is seen at the anterior aspect of the right kidney, stable. Bilateral parapelvic renal cysts are present. No hydronephrosis. A Torres catheter is present in the bladder. There is significant bladder wall thickening and a small amount of air within the bladder. Spleen: The spleen is normal in size. Pancreas: The pancreas is unremarkable. Gastrointestinal system and mesentery: A right abdomen ostomy is present. Postoperative changes are seen in the distal sigmoid colon. Multiple fluid-filled bowel loops are seen. There is no evidence of bowel obstruction. The appendix is unremarkable. Mild diffuse mesenteric stranding is noted. Lymph nodes: No pathologically enlarged abdominal or pelvic lymph nodes are present. Vessels: The abdominal aorta is normal in caliber. The celiac trunk, superior mesenteric artery, inferior mesenteric artery and their branch vessels appear grossly patent. The superior mesenteric vein, splenic vein and main portal veins are patent. The inferior vena cava and hepatic veins are unremarkable. Peritoneum: No free intraperitoneal fluid or pneumoperitoneum. Pelvic viscera: There has been interval placement of a left lower pelvis straining with significant improvement in the left lower pelvis/inguinal air and fluid collection. A second left pelvic drain is again identified. Body wall: Postoperative changes are seen in the anterior abdomen and pelvic wall. No significant body wall hernias. Mild anasarca is noted. Bones: No acute fracture. Bilateral L5 pars defects are seen with grade 1 anterolisthesis of L5 on S1. Moderate degenerative changes are noted in the spine. Impression: Interval placement of a left pelvic drain with marked improvement in the left lower pelvis air and fluid collection. Otherwise no significant change since the prior CT. Cholelithiasis. 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 Contrast is seen within the urinary bladder from presumed CT cystogram. Sagittal and coronal reformatted images were also obtained. This study was performed with techniques to keep radiation doses as low as reasonably achievable, (ALARA). Individualized dose reduction techniques using automated exposure control or adjustment of mA and/or kV according to the patient size were employed. Contrast is seen extending from the anterior border of the urinary bladder to the left lateral lower pelvis fluid collection, well visualized on series 2 images 32-34. A drain is present in the lateral aspect of the cavity in the left lower pelvis, with significant interval improvement since the prior CT. A second left pelvic drain is present. A Torres catheter is present in the bladder. Postoperative changes are seen in the distal sigmoid colon. There is no evidence of bowel obstruction. No acute bony abnormality is identified. Degenerative changes are noted in the lower lumbar spine. There are bilateral L5 pars defects. IMPRESSION: Contrast leakage from the anterior bladder to the left lateral lower pelvic fluid collection consistent with a fistula. A drain is present within the left lower pelvis fluid collection with significant improvement since the prior CT. Images reviewed, interpreted, and dictated by Gunnar De La Paz MD IMPRESSION: Colovesical fistula repaired 04/09/2025 without obvious abscess but some evidence of inflammation, with partial resection of previous Broughton-Pablo mesh. Fluid in the left inguinal canal abscess versus other. Seen on CT scan 04/11. Left groin abscess status post aspiration 04/11 with cultures positive for Klebsiella, Enterococcus, Clostridium. MRSA screennegative Leukocytosis, neutrophilic related to above issues. Slightly worse. Anemia, acute postoperative blood loss and chronic disease. Diabetes mellitus type 2 with increased risk for infection. Hypocalcemia 8.1, worse. Ongoing smoking. Acute hypoxic respiratory failure, 2 L/min nasal cannula oxygen on 04/11 may be related to atelectasis versus COPD versus other. Room air on 04/13. PLAN: Diagnostically, continue to follow patient's physical exam, CBC, CMP, CRP, radiographs. Therapeutically, continue ceftriaxone plus metronidazole and add daptomycin for enterococcal coverage (could also consider linezolid but not a good long-term antimicrobial agent for treatment with side effects). Patient had some evidence of inflammation at the time of surgery of his colovesical fistula repair but no rebekah abscess. Concerns for Broughton-Pablo mesh in place which was partially resected. Future concerns could include potential infection of Broughton-Pablo mesh which is a difficult clinical problem to remedy and can become a chronic focus of infection. Especially important and lieu of his future considerations for pacemaker. Not clear what optimal duration of antibiotics would be in the sett ing given the absence of systemic signs of infection or abscess. Duration likely extended given hisfever curve and left groin abscess to continue until 04/30/2025. Patient was counseled by surgery regarding leaving AMA, and potential harm. Discontinue atorvastatin while on daptomycin. Supportive care. Room air on 04/10. 04/11/2025 2 L/min nasal cannula oxygen. I prev discussed the patient's findings and my recommendations with the patient and nursing. Thank you for asking me to see Levar Palomino Giorgi. Our group would be pleased to follow this patient over the course of their hospitalization and assist with outpatient antimicrobial therapy, as indicated. Further recommendations depend on the results of the cultures and clinical course. The patient hasan increased risk for adverse drug reactions, complications of IV access, readmission. Side effectsof medications were discussed. Case management orders: Please arrange for outpatient antibiotics. Medication/Dose/Route/Frequency: Ceftriaxone 2 g IV daily, metronidazole 500 mg p.o. 3 times daily,daptomycin 500 mg IV daily End Date: 04/30/2025 diagnosis: Left groin abscess with Klebsiella, Enterococcus, anaerobes Labs Needed and Frequency: Check CBC, CMP, CRP, CPK weekly while on IV antibiotics. I approve us of standard hypersensitivity medications: Access existing central venous access device or insert peripheral IV as needed. Restart peripheral IV catheter (as needed) for any signs of redness, pain, swelling. This visit included the following complex service elements: Complex medical decision-making associated with antimicrobial prescribing. In-depth chart review with high level synthesis for complex diagnoses. Managed infection prevention and treatment protocol associated with transitions of care for this complex patient. Addendum: Pt leaving AMA. D/w nursing. Murtaza Amato MD 04/16/2025 * Marilia Campos RN - 04/16/2025 10:00 AM EDTSummary: Harish removal/ Ostomy education Images from the original note were not included. 04/16/25 0956 Ostomy (Stool) RLQ No Date First Assessed or Time First Assessed found. Location: RLQ Ostomy Status Budded;Moist;Functioning Stoma Color [place];Red Peristomal Skin Intact Interventions Change pouch;Cleanse skin;Cleanse stoma;Other (comment) (harish removed) [facility] RN present for continuing education regarding ileostomy and harish removal from stoma. Upon arrival patient resting on Katherine support surface, agreeable to teaching/assessment. Prior pouching system removed, site cleansed with warm water and patted dry. [facility] RN removed plastic harish as ordered by Dr. Lockhart without difficulty. Left template for patient to use for next pouch change instructing patient to measure stoma over next 4 weeks as stoma will shrink in size, patient verbalized understanding. Applied Adapt 2 ostomy ring around stoma, then applied a [place] blue convex pouching system. Reviewed printed packet and what to be aware of regarding an ileostomy blockage. Crusting technique reviewed in the event of peristomal skin irritation, discussed skin concerns to watch for. Reviewed wear time and pouch emptying at ? to ?? full. Reviewed DME process of ordering supplies. Patient reports he is comfortable of taking care of his ostomy at home. All questions asked answered at this time. Provided patient with extra supplies to take home. Current Ostomy Supplies: [place] Blue convex, two piece system (#[id number], #[id number]) Adapt Ostomy Ring, 2 #8805 Stoma Powder #[id number] [place] [employer] #[id number] * Rebekah Lockhart MD - 04/16/2025 7:28 AM EDT Subjective Patient is doing fair today. He went for a CT scan yesterday which noted no signs of intra-abdominal abscess. His repeat cystogram did show that he has a extraperitoneal bladder fistula to the left groin as we believed. Tmax was 100. He has had scant output from his surgical drain. His left groin drain is at 300 mL. He had 970 out from his ileostomy. 1500 out from his Torres catheter. Leukocytosis did upward trend a bit to 12,000 from 10,000. Overall, he feels well. He is quite adamant about going home today Review of Systems Objective Last Recorded Vitals Blood pressure 119/74, pulse 84, temperature 99.5 ??F (37.5 ??C), resp. rate 17, height 1.753 m (5'9.02 ), weight 80.5 kg (177 lb 6.1 oz), SpO2 96%. Physical Exam Soft, appropriately tender which is minimal. Incision is clean and intact. Ileostomy is pink patentand productive. WOLF drain with serous output. IR drain with murky output. Torres catheter is clear. Labs: Results for orders placed or performed during the hospital encounter of 04/09/25 (from the past 24 hours) Glucose, Nova Meter Status: Abnormal Collection Time: 04/15/25 12:47 PM Result Value Ref Range POC-GLUCOSE 164 (H) 70 - 110 mg/dL Generation Technician [id number] Glucose, Nova Meter Status: Abnormal Collection Time: 04/15/25 4:42 PM Result Value Ref Range POC-GLUCOSE 121 (H) 70 - 110 mg/dL Generation Technician [id number] Glucose, Nova Meter Status: Abnormal Collection Time: 04/15/25 10:47 PM Result Value Ref Range POC-GLUCOSE 133 (H) 70 - 110 mg/dL Generation Technician [id number] Basic Metabolic Panel Status: Abnormal Collection Time: 04/16/25 4:21 AM Result Value Ref Range Sodium 139 136 - 145 meq/L Potassium 3.6 3.4 - 5.1 meq/L CO2 22 22 - 29 meq/L Chloride 110 98 - 112 meq/L Glucose 103 82 - 115 mg/dL BUN 6.0 (L) 8.4 - 25.7 mg/dL Creatinine 0.71 (L) 0.72 - 1.25 mg/dL BUN/Creatinine 8 8 - 20 Calcium 7.9 (L) 8.4 - 10.2 mg/dL Anion Gap 11 4 - 12 eGFR (mL/min/1.73m2) 101 >=60 mL/min/1.73m2 Osmolality Calc 275.4 mOsm/kg CBC with Automated Diff Status: Abnormal Collection Time: 04/16/25 4:21 AM Result Value Ref Range WBC 12.8 (H) 4.2 - 9.1 K/??L RBC 3.35 (L) 4.63 - 6.08 M/??L Hemoglobin 9.2 (L) 13.7 - 17.5 GM/DL Hematocrit 28.6 (L) 40.1 - 51.0 % MCV 85 79 - 92 fL MCH 27.5 25.7 - 32.2 pg MCHC 32.2 (L) 32.3 - 36.5 GM/DL RDW 14.6 (H) 11.6 - 14.4 % Platelets 345 140 - 375 K/CU MM MPV 8.6 (L) 9.4 - 12.4 fL % Neutros 71 (H) 34 - 68 % % Lymphs 14 (L) 22 - 53 % % Monos 11 5 - 12 % % Eos 3 1 - 7 % % Baso 0 0 - 1 % NRBC Absolute <0.01 0 - 0.012 K/ul # Neutros 9.08 (H) 1.78 - 5.38 K/??L # Lymphs 1.73 1.32 - 3.57 K/??L # Monos 1.37 (H) 0.30 - 0.82 K/??L # Eos 0.42 0.04 - 0.54 K/??L # Baso 0.04 0.01 - 0.08 K/??L Immature Granulocytes-Relative 1.50 (H) 0.01 - 0.43 % # IG 0.19 (H) 0.00 - 0.03 K/uL CT ABDOMEN/PELVIS WITH IV CONTRAST Standard Protocol, CT pelvis without IV contrast Narrative: CT SCAN OF THE ABDOMEN AND PELVIS WITH CONTRAST HISTORY: Bladder fistula, mass. PROCEDURE: Axial CT images were obtained from the lung bases to the pubic symphysis with IV contrast administration. Oral contrast was also given. Coronal and sagittal reformatted images were also obtained and reviewed. This study was performed with techniques to keep radiation doses as low as reasonably achievable, (ALARA). Individualized dose reduction techniques using automated exposure control or adjustment of mA and/or kV according to the patient size were employed. COMPARISON: April 11, 2025. FINDINGS: LOWER CHEST: The heart is normal in size. Mild bilateral lower lobe atelectasis is seen with small pleural effusions. ABDOMEN/PELVIS: Liver, gallbladder and bile ducts: A small cyst is seen at the right liver dome. Several gallstones are seen in the gallbladder with mild gallbladder wall thickening. No significant biliary ductal dilatation. Adrenal glands: The adrenal glands are morphologically unremarkable without suspicious lesion. Kidneys, ureters and urinary bladder: A 25 mm cyst is seen at the anterior aspect of the right kidney, stable. Bilateral parapelvic renal cysts are present. No hydronephrosis. A Torres catheter is present in the bladder. There is significant bladder wall thickening and a small amount of air within the bladder. Spleen: The spleen is normal in size. Pancreas: The pancreas is unremarkable. Gastrointestinal system and mesentery: A right abdomen ostomy is present. Postoperative changes are seen in the distal sigmoid colon. Multiple fluid-filled bowel loops are seen. There is no evidence of bowel obstruction. The appendix is unremarkable. Mild diffuse mesenteric stranding is noted. Lymph nodes: No pathologically enlarged abdominal or pelvic lymph nodes are present. Vessels: The abdominal aorta is normal in caliber. The celiac trunk, superior mesenteric artery, inferior mesenteric artery and their branch vessels appear grossly patent. The superior mesenteric vein, splenic vein and main portal veins are patent. The inferior vena cava and hepatic veins are unremarkable. Peritoneum: No free intraperitoneal fluid or pneumoperitoneum. Pelvic viscera: There has been interval placement of a left lower pelvis straining with significant improvement in the left lower pelvis/inguinal air and fluid collection. A second left pelvic drain is again identified. Body wall: Postoperative changes are seen in the anterior abdomen and pelvic wall. No significant body wall hernias. Mild anasarca is noted. Bones: No acute fracture. Bilateral L5 pars defects are seen with grade 1 anterolisthesis of L5 on S1. Moderate degenerative changes are noted in the spine. Impression: Interval placement of a left pelvic drain with marked improvement in the left lower pelvis air and fluid collection. Otherwise no significant change since the prior CT. Cholelithiasis. 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 Contrast is seen within the urinary bladder from presumed CT cystogram. Sagittal and coronal reformatted images were also obtained. This study was performed with techniques to keep radiation doses as low as reasonably achievable, (ALARA). Individualized dose reduction techniques using automated exposure control or adjustment of mA and/or kV according to the patient size were employed. Contrast is seen extending from the anterior border of the urinary bladder to the left lateral lower pelvis fluid collection, well visualized on series 2 images 32-34. A drain is present in the lateral aspect of the cavity in the left lower pelvis, with significant interval improvement since the prior CT. A second left pelvic drain is present. A Torres catheter is present in the bladder. Postoperative changes are seen in the distal sigmoid colon. There is no evidence of bowel obstruction. No acute bony abnormality is identified. Degenerative changes are noted in the lower lumbar spine. There are bilateral L5 pars defects. IMPRESSION: Contrast leakage from the anterior bladder to the left lateral lower pelvic fluid collection consistent with a fistula. A drain is present within the left lower pelvis fluid collection with significant improvement since the prior CT. Images reviewed, interpreted, and dictated by Gunnar De La Paz MD Assessment This is a 65-year-old male with significant past medical history and past surgical history. As we have gone along with his care I have learned more about him (as he remembers more). He has a chronically infected left groin mesh which was unknonw to me or to him. He is now postop day 7 from redo low anterior resection and takedown of what is presumed a diverticular colovesicular fistula which actually ended up being a colovesicular/left groin abscess fistula with creation of a diverting loop ileostomy and incisional hernia repair. As we disconnected his colon from the left groin abscesses have allowed purulent material to spill into the peritoneal cavity creating significant postoperative pain as well as abnormal findings. He is now status post percutaneous drain of the left groin which has improved symptoms and hemodynamics. After removing torres we have seen an increase in IR drainage ----- He overall looks good. Confirmed bladder to left groin fistula seen on imaging. No abscess. White count slightly elevated today. Still with a Tmax of 100 Plan In light of his CT scan yesterday, I do not have any actionable item with regards to his abdomen Continue all of his drains in his Torres catheter Continue his antibiotics Continue regular diet We may remove the ostomy harish today, repeat education. He has had a colostomy in the past who is somewhat familiar The patient is adamant about going home today. I do believe that this carries a high risk of readmission particularly with a white count that has risen and him still having some low-grade fevers. I educated him on this and the risk of readmission. He is adamant about going home. I asked him to at least see the other consultants and physicians who may give some guidance. If he does leave AGAINST MEDICAL ADVICE I would like him to follow-up with me at my next clinic availability which is next Wednesday * Suri Alcaraz RN - 04/15/2025 6:51 PM EDT Sepsis Zone Tool provided to patient and/or family at bedside using the Explanation, Verbalizes Understanding, Demonstrated Understanding, and Needs Reinforcement. * Hilary Dumont MD - 04/15/2025 11:14 AM EDT Subjective Seen and examined in CTVU. C/O pain Review of Systems Objective Last Recorded Vitals Blood pressure 116/60, pulse 79, temperature 99.5 ??F (37.5 ??C), resp. rate 29, height 1.753 m (5'9.02 ), weight 80.5 kg (177 lb 6.1 oz), SpO2 94%. Physical Exam Labs: Results for orders placed or performed during the hospital encounter of 04/09/25 (from the past 24 hours) Basic Metabolic Panel Status: Abnormal Collection Time: 04/15/25 5:11 AM Result Value Ref Range Sodium 137 136 - 145 meq/L Potassium 3.3 (L) 3.4 - 5.1 meq/L CO2 18 (L) 22 - 29 meq/L Chloride 110 98 - 112 meq/L Glucose 155 (H) 82 - 115 mg/dL BUN 6.5 (L) 8.4 - 25.7 mg/dL Creatinine 0.74 0.72 - 1.25 mg/dL BUN/Creatinine 9 8 - 20 Calcium 7.7 (L) 8.4 - 10.2 mg/dL Anion Gap 12 4 - 12 eGFR (mL/min/1.73m2) 100 >=60 mL/min/1.73m2 Osmolality Calc 274.8 mOsm/kg CBC with Automated Diff Status: Abnormal Collection Time: 04/15/25 5:11 AM Result Value Ref Range WBC 10.9 (H) 4.2 - 9.1 K/??L RBC 3.30 (L) 4.63 - 6.08 M/??L Hemoglobin 9.1 (L) 13.7 - 17.5 GM/DL Hematocrit 27.7 (L) 40.1 - 51.0 % MCV 84 79 - 92 fL MCH 27.6 25.7 - 32.2 pg MCHC 32.9 32.3 - 36.5 GM/DL RDW 14.4 11.6 - 14.4 % Platelets 288 140 - 375 K/CU MM MPV 8.5 (L) 9.4 - 12.4 fL % Neutros 73 (H) 34 - 68 % % Lymphs 13 (L) 22 - 53 % % Monos 10 5 - 12 % % Eos 3 1 - 7 % % Baso 1 0 - 1 % NRBC Absolute <0.01 0 - 0.012 K/ul # Neutros 8.02 (H) 1.78 - 5.38 K/??L # Lymphs 1.38 1.32 - 3.57 K/??L # Monos 1.07 (H) 0.30 - 0.82 K/??L # Eos 0.28 0.04 - 0.54 K/??L # Baso 0.05 0.01 - 0.08 K/??L Immature Granulocytes-Relative 1.20 (H) 0.01 - 0.43 % # IG 0.13 (H) 0.00 - 0.03 K/uL Glucose, Nova Meter Status: Abnormal Collection Time: 04/15/25 6:40 AM Result Value Ref Range POC-GLUCOSE 139 (H) 70 - 110 mg/dL Generation Technician [id number] Glucose, Nova Meter Status: Abnormal Collection Time: 04/15/25 12:47 PM Result Value Ref Range POC-GLUCOSE 164 (H) 70 - 110 mg/dL Generation Technician [id number] Glucose, Nova Meter Status: Abnormal Collection Time: 04/15/25 4:42 PM Result Value Ref Range POC-GLUCOSE 121 (H) 70 - 110 mg/dL Generation Technician [id number] CT ABDOMEN/PELVIS WITH IV CONTRAST Standard Protocol, CT pelvis without IV contrast Narrative: CT SCAN OF THE ABDOMEN AND PELVIS WITH CONTRAST HISTORY: Bladder fistula, mass. PROCEDURE: Axial CT images were obtained from the lung bases to the pubic symphysis with IV contrast administration. Oral contrast was also given. Coronal and sagittal reformatted images were also obtained and reviewed. This study was performed with techniques to keep radiation doses as low as reasonably achievable, (ALARA). Individualized dose reduction techniques using automated exposure control or adjustment of mA and/or kV according to the patient size were employed. COMPARISON: April 11, 2025. FINDINGS: LOWER CHEST: The heart is normal in size. Mild bilateral lower lobe atelectasis is seen with small pleural effusions. ABDOMEN/PELVIS: Liver, gallbladder and bile ducts: A small cyst is seen at the right liver dome. Several gallstones are seen in the gallbladder with mild gallbladder wall thickening. No significant biliary ductal dilatation. Adrenal glands: The adrenal glands are morphologically unremarkable without suspicious lesion. Kidneys, ureters and urinary bladder: A 25 mm cyst is seen at the anterior aspect of the right kidney, stable. Bilateral parapelvic renal cysts are present. No hydronephrosis. A Torres catheter is present in the bladder. There is significant bladder wall thickening and a small amount of air within the bladder. Spleen: The spleen is normal in size. Pancreas: The pancreas is unremarkable. Gastrointestinal system and mesentery: A right abdomen ostomy is present. Postoperative changes are seen in the distal sigmoid colon. Multiple fluid-filled bowel loops are seen. There is no evidence of bowel obstruction. The appendix is unremarkable. Mild diffuse mesenteric stranding is noted. Lymph nodes: No pathologically enlarged abdominal or pelvic lymph nodes are present. Vessels: The abdominal aorta is normal in caliber. The celiac trunk, superior mesenteric artery, inferior mesenteric artery and their branch vessels appear grossly patent. The superior mesenteric vein, splenic vein and main portal veins are patent. The inferior vena cava and hepatic veins are unremarkable. Peritoneum: No free intraperitoneal fluid or pneumoperitoneum. Pelvic viscera: There has been interval placement of a left lower pelvis straining with significant improvement in the left lower pelvis/inguinal air and fluid collection. A second left pelvic drain is again identified. Body wall: Postoperative changes are seen in the anterior abdomen and pelvic wall. No significant body wall hernias. Mild anasarca is noted. Bones: No acute fracture. Bilateral L5 pars defects are seen with grade 1 anterolisthesis of L5 on S1. Moderate degenerative changes are noted in the spine. Impression: Interval placement of a left pelvic drain with marked improvement in the left lower pelvis air and fluid collection. Otherwise no significant change since the prior CT. Cholelithiasis. 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 Contrast is seen within the urinary bladder from presumed CT cystogram. Sagittal and coronal reformatted images were also obtained. This study was performed with techniques to keep radiation doses as low as reasonably achievable, (ALARA). Individualized dose reduction techniques using automated exposure control or adjustment of mA and/or kV according to the patient size were employed. Contrast is seen extending from the anterior border of the urinary bladder to the left lateral lower pelvis fluid collection, well visualized on series 2 images 32-34. A drain is present in the lateral aspect of the cavity in the left lower pelvis, with significant interval improvement since the prior CT. A second left pelvic drain is present. A Torres catheter is present in the bladder. Postoperative changes are seen in the distal sigmoid colon. There is no evidence of bowel obstruction. No acute bony abnormality is identified. Degenerative changes are noted in the lower lumbar spine. There are bilateral L5 pars defects. IMPRESSION: Contrast leakage from the anterior bladder to the left lateral lower pelvic fluid collection consistent with a fistula. A drain is present within the left lower pelvis fluid collection with significant improvement since the prior CT. Images reviewed, interpreted, and dictated by Gunnar De La Paz MD /12/2024 Procedure: OPEN REDO LOW ANTERIOR RESECTION WITH TAKEDOWN OF COLOVESICAL FISTULA DIVERTING LOOP ILEOSTOMY VENTRAL HERNIA REPAIR EXPLANT OF ABDOMINAL WALL MESH LYSIS OF ADHESIONS CYSTOSCOPY WITH URETERAL STENT INSERTION (Urology) Assessment #Colovesicular fistula: #Recurrent diverticulitis #Diabetes: #Hypertension: #Hyperlipidemia: #Tobacco use disorder: 04/13/2025 Plan IV Rocephin/Flagyl Labs In a.m. Infectious disease following NG tube was removed Clear liquid PT OT Patient can be transferred to the floor 04/14/2025 Continue current management Can transfer to floor if ok with other subspecialties Discharge Planning: Advance diet encourage activity Patient will need rehab next week Discharge Planning: * Rebekah Lockhart MD - 04/15/2025 11:11 AM EDT Subjective Patient is doing fair today. He in fact states that his abdominal pain is better. He denies any chills. He is having some elevated temps, 100.2 with his Tmax. These temperatures have been measured via Torres. If we measure via axillary or the highest is 99. The food went well yesterday and he had a subsequent slowing down of his ileostomy. We replaced his catheter yesterday and his IR drain output has subsequently decreased. Review of Systems Objective Last Recorded Vitals Blood pressure (!) 85/61, pulse 73, temperature 99.1 ??F (37.3 ??C), resp. rate (!) 31, height 1.753 m (5' 9.02 ), weight 80.5 kg (177 lb 6.1 oz), SpO2 94%. Physical Exam Soft, minimally tender, nondistended. Incision is clean dry and intact. Approximated alexandro. Ileostomy is pink viable and productive. Urine is clear. WOLF drain with serous output. Scant output. IR drain with Sang/ purulent output Labs: Results for orders placed or performed during the hospital encounter of 04/09/25 (from the past 24 hours) Glucose, Nova Meter Status: Abnormal Collection Time: 04/14/25 12:33 PM Result Value Ref Range POC-GLUCOSE 132 (H) 70 - 110 mg/dL Generation Technician [id number] Glucose, Nova Meter Status: None Collection Time: 04/14/25 5:53 PM Result Value Ref Range POC-GLUCOSE 106 70 - 110 mg/dL Generation Technician [id number] Basic Metabolic Panel Status: Abnormal Collection Time: 04/15/25 5:11 AM Result Value Ref Range Sodium 137 136 - 145 meq/L Potassium 3.3 (L) 3.4 - 5.1 meq/L CO2 18 (L) 22 - 29 meq/L Chloride 110 98 - 112 meq/L Glucose 155 (H) 82 - 115 mg/dL BUN 6.5 (L) 8.4 - 25.7 mg/dL Creatinine 0.74 0.72 - 1.25 mg/dL BUN/Creatinine 9 8 - 20 Calcium 7.7 (L) 8.4 - 10.2 mg/dL Anion Gap 12 4 - 12 eGFR (mL/min/1.73m2) 100 >=60 mL/min/1.73m2 Osmolality Calc 274.8 mOsm/kg CBC with Automated Diff Status: Abnormal Collection Time: 04/15/25 5:11 AM Result Value Ref Range WBC 10.9 (H) 4.2 - 9.1 K/??L RBC 3.30 (L) 4.63 - 6.08 M/??L Hemoglobin 9.1 (L) 13.7 - 17.5 GM/DL Hematocrit 27.7 (L) 40.1 - 51.0 % MCV 84 79 - 92 fL MCH 27.6 25.7 - 32.2 pg MCHC 32.9 32.3 - 36.5 GM/DL RDW 14.4 11.6 - 14.4 % Platelets 288 140 - 375 K/CU MM MPV 8.5 (L) 9.4 - 12.4 fL % Neutros 73 (H) 34 - 68 % % Lymphs 13 (L) 22 - 53 % % Monos 10 5 - 12 % % Eos 3 1 - 7 % % Baso 1 0 - 1 % NRBC Absolute <0.01 0 - 0.012 K/ul # Neutros 8.02 (H) 1.78 - 5.38 K/??L # Lymphs 1.38 1.32 - 3.57 K/??L # Monos 1.07 (H) 0.30 - 0.82 K/??L # Eos 0.28 0.04 - 0.54 K/??L # Baso 0.05 0.01 - 0.08 K/??L Immature Granulocytes-Relative 1.20 (H) 0.01 - 0.43 % # IG 0.13 (H) 0.00 - 0.03 K/uL Glucose, Nova Meter Status: Abnormal Collection Time: 04/15/25 6:40 AM Result Value Ref Range POC-GLUCOSE 139 (H) 70 - 110 mg/dL Generation Technician [id number] CT DRAINAGE PERITONEAL/RETROPERITONEAL W GUIDANCE Narrative: CT GUIDED DRAIN PLACEMENT HISTORY: Left groin abscess. . ATTENDING RADIOLOGIST: Dr. Gaviria. PHYSICIAN DIRECTOR [facility]: Jean Pierre Hughes PA-C. PROCEDURE: After informed consent was obtained and a time-out was performed, the patient was prepped and draped in the usual sterile fashion over the left groin. Utilizing local anesthesia and sterile technique with a catheter access needle, access to the fluid collection was obtained under direct CT guidance. An Amplatz wire was placed. Serial dilatation was performed. A 10 Brazilian pigtail catheter was placed looped in the fluid collection. Post drain placement films demonstrate the catheter in good position. The patient received moderate conscious sedation. The patient tolerated the procedure well and left the department in good condition. CONSCIOUS SEDATION: 1 mg of IV Versed and 75 mcg of Fentanyl were administered. Continuous vital sign monitoring was used. An RN was present during the sedation process. Overall sedation time was 15 minutes. Impression: Status post CT guided percutaneous drain placement without immediate complication. Sample of the fluid was sent to lab for cultures. Images reviewed, interpreted, and dictated by Dr. Roro Gaviria. Transcribed by Jean Pierre Hughes PA-C XR chest AP portable Narrative: PORTABLE CHEST 04/11/2025 11:00 AM HISTORY: Shortness of air COMPARISON: April 09, 2025 FINDINGS: The patient is status post median sternotomy. The heart is stable in size. The lung sanchez demonstrate no significant change. There is no pneumothorax. The support devices are in good position. Impression: There has been no significant interval change. Continued follow up recommended. Images reviewed, interpreted, and dictated by Dr. Roro Gaviria. Transcribed by Giovany Meza PA-C. CT ABDOMEN/PELVIS WITH IV CONTRAST Standard Protocol Narrative: CT SCAN OF THE ABDOMEN AND PELVIS WITH CONTRAST; 04/11/2025 9:34 AM HISTORY: Epigastric pain. COMPARISON: January 2018. PROCEDURE: The patient was injected with IV contrast. Axial images were obtained from the lung bases to the pubic symphysis by computed tomography. This study was performed with techniques to keep radiation doses as low as reasonably achievable, (ALARA). Individualized dose reduction techniques using automated exposure control or adjustment of mA and/or kV according to the patient size were employed. FINDINGS: ABDOMEN: There is marked degenerative disc disease throughout the lumbar spine. There is grade one anterolisthesis at L5-S1 with bilateral L5 pars defects. There is mild bibasilar atelectasis. There is a gallstone in the gallbladder. There is perinephric stranding bilaterally. There are peripelvic cysts bilaterally. There is a simple cyst projecting off the superior aspect of the right kidney. The solid organs are otherwise unremarkable. There is mesh in the anterior abdominal wall. There are skin alexandro in the anterior abdominal wall. There is trace ascites and free intraperitoneal air. There is a right abdominal ostomy. There is a ventral hernia in the anterior left abdomen containing a small amount of fluid and free air. PELVIS: The urinary bladder is decompressed by a Torres. There is flocculent fluid and debris extending into the left inguinal canal, likely representing an abscess. There is stranding in the anterior abdominal wall. Status post sigmoid colon resection. The appendix is not identified. The bowel loops are mildly distended. There is presacral stranding and fluid. There is stranding in the right inguinal canal. A surgical drain is looped in the pelvis. Impression: Minimal free fluid and free air, consistent with recent operative intervention. Perinephric stranding is nonspecific but pyelonephritis is not excluded. Loculated fluid collection in the left inguinal canal could represent an abscess. Images reviewed, interpreted, and dictated by Roro Gaviria MD Assessment This is a 65-year-old male with significant past medical history and past surgical history. As we have gone along with his care I have learned more about him (as he remembers more). He has a chronically infected left groin mesh which was unknonw to me or to him. He is now postop day 6 from redo low anterior resection and takedown of what is presumed a diverticular colovesicular fistula which actually ended up being a colovesicular/left groin abscess fistula with creation of a diverting loop ileostomy and incisional hernia repair. As we disconnected his colon from the left groin abscesses have allowed purulent material to spill into the peritoneal cavity creating significant postoperative pain as well as abnormal findings. He is now status post percutaneous drain of the left groin which has improved symptoms and hemodynamics. After removing torres we have seen an increase in IR drainage ----- He overall continues to improve. Although he is having some elevated temperatures. Plan I discussed his case with my urology colleagues. I would like to obtain a CT scan of the abdomen and pelvis with oral and IV contrast. After this is complete we will obtain a CT pelvis cystogram to better delineate his fistula I think he is still too complex for floor management He may continue with diet in the meantime Continue his drains Ostomy education, ambulation, Lovenox and SCDs Addendum: CT scans obtained. Read still pending but per my interpretation I do not see any signs of a leak from his colo-rectal anastomosis. There is a few small air bubles adjacent to the drain but no signs of free fluid. No signs of any abscess or action to intervene. CT cysto shows an extraperitoneal fistula to the Left groin as suspected. No peritoneal extravasation of urinary contrast. Plan Keep torres cath. Continue Abx. Regular diet. Keep IR drain Ostomy education Ambulation * Enrique Lopez MD - 04/15/2025 11:02 AM EDT Images from the original note were not included. Consults PULMONARY AND CRITICAL CARE Consult Note Date of Service: 04/15/2025 Reason for Consult: For critical care management. Referring: Chantelle HPI: This is a 65 y.o. 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 He has had acosta's in 2012 and reversal and incisional hernia repair in 2013. He has been followed outpatient by Colorectal surgery due to concerns for colovesicular fistula immediately proximal to his anastomosis. He underwent Colonoscopy and CT scan and noted inflamed colovesicular fistula between the descending/sigmoid colon junction and the left urinary bladder with bladder wall thickening. There wasalso an abdominal midline ventral hernia containing nonobstructed bowel loops. He presented today for elective open lower anterior resection, takedown of colovesicular fistula, possible diverting loop ileostomy, ventral hernia repair and cystoscopy with temporary ureteral stents. He tolerated the procedure well and transferred to ICU for monitoring. Pulmonary has been consulted for ICU management. Daily progress note : 04/10: Patient was seen and examined today. During rounds patient was awake alert oriented time placeand person. Vitals reviewed stable. Labs and images reviewed, white cell count trending down, creatinine within normal. Chest x-ray from yesterday reviewed/interpreted independently showed no acute infiltrate. Discussed with the primary team at the bedside, and will transfer patient out of the ICU. 04/11: Patient was seen and examined today. During rounds patient was awake, alert, oriented. Overallpatient looks ill, with high risk for decline. Vitals reviewed, currently patient on 2 L oxygen, satting 98%, mild tachypnea and tachycardia noted. Labs reviewed, white cell count trending down, creatinine within normal. CT abdomen was done showed minimal free fluid and free air consistent with recent operative intervention, perinephric stranding is nonspecific but pyonephritis cannot be excluded, loculated fluid collection in the left inguinal canal could represent an abscess. Spoke with the general surgeon on the phone, and the plan to possible take patient to the OR today dueto purulent material drainage . 04/12: Patient was seen and examined today. During rounds patient was awake, alert, oriented. Overallpatient is critically ill, but with some improvement today compared to before. Vitals reviewed, blood pressure low normal, mild tachycardia noted. Labs reviewed, white cell count trending down, creatinine within normal. Lactic acid pending. Chest x-ray from yesterday reviewed/interpreted independently, showed no acute infiltrate. 04/13: Patient was seen and examined today. During rounds patient was awake, alert, oriented, stated that overall feels better. Vitals reviewed, currently patient still with low normal blood pressure. On LR at 75 cc/h. Mild tachypnea, intermittent tachycardia noted. Labs reviewed, white cell count trending down, creatinine within normal. Overall patient continues to improve but still at high risk for decline, will continue to monitor in the ICU. 04/14: Patient was seen and examined today. During rounds patient was awake, alert, but mildly confused, agitated. Vitals reviewed, currently patient on room air, satting 92%. Mild intermittent tachypnea noted, but no tachycardia. Labs reviewed, white cell count trending down. cr wnl. Overall patientstill critically ill with high risk further decline, recommend continue to monitor in the ICU. 04/15: Patient was seen and examined today. During rounds patient was awake, alert, oriented, overall feels better. Denied any complaints. Vitals reviewed, blood pressure still low normal, otherwise vital stable. Labs reviewed, white cell count trending down, creatinine within normal. CT abdomen pelvis ordered by general surgery, will follow-up on the results. PAST MEDICAL HISTORY: Past Medical History: Diagnosis Date Anxiety CAD (coronary artery disease) Colovesical fistula Depression Diabetes (HCC) High blood pressure High cholesterol Hypertension Kawasaki disease (HCC) Vitamin D deficiency PAST SURGICAL HISTORY: Past Surgical History: Procedure Laterality Date COLON SURGERY patient stated he had colon surgery (colostomy with reversal) CORONARY ANGIOPLASTY WITH STENT PLACEMENT CORONARY ARTERY BYPASS GRAFT CYSTOSCOPY,INSERTION URETERAL STENTS Bilateral 04/09/2025 Procedure: CYSTOSCOPY, WITH URETERAL STENT INSERTION; Surgeon: Rebekah Lockhart MD; Location: [facility]; Service: General Surgery; Laterality: Bilateral; HAND SURGERY Bilateral HERNIA REPAIR LAPAROSCOPY,LOW ANTERIOR RESECTION N/A 04/09/2025 Procedure: (OPEN LOW ANTERIOR RESECTION WITH TAKEDOWN OF COLOVESICAL FISTULA DIVERTING LOOP ILEOSTOMY VENTRAL HERNIA REPAIR AND CYSTOSCOPY AND STENTS) EXPLANTS OF MESH, REDO LAR,EX LAP LYSIS OF ADHESIONS; Surgeon: Rebekah Lockhart MD; Location: [facility]; Service: General Surgery; Laterality: N/A; Past Surgical History: Procedure Laterality Date COLON SURGERY patient stated he had colon surgery (colostomy with reversal) CORONARY ANGIOPLASTY WITH STENT PLACEMENT CORONARY ARTERY BYPASS GRAFT CYSTOSCOPY,INSERTION URETERAL STENTS Bilateral 04/09/2025 Procedure: CYSTOSCOPY, WITH URETERAL STENT INSERTION; Surgeon: Rebekah Lockhart MD; Location: [facility]; Service: General Surgery; Laterality: Bilateral; HAND SURGERY Bilateral HERNIA REPAIR LAPAROSCOPY,LOW ANTERIOR RESECTION N/A 04/09/2025 Procedure: (OPEN LOW ANTERIOR RESECTION WITH TAKEDOWN OF COLOVESICAL FISTULA DIVERTING LOOP ILEOSTOMY VENTRAL HERNIA REPAIR AND CYSTOSCOPY AND STENTS) EXPLANTS OF MESH, REDO LAR,EX LAP LYSIS OF ADHESIONS; Surgeon: Rebekah Lockhart MD; Location: [facility]; Service: General Surgery; Laterality: N/A; Allergies: No Known Allergies SOCIAL HISTORY: Social History Tobacco Use Smoking status: Every Day Types: Cigarettes Smokeless tobacco: Never Substance Use Topics Alcohol use: Never Drug use: Yes Types: Marijuana Comment: weekly FAMILY HISTORY: family history is not on file. Review of Systems Constitutional: Positive for malaise/fatigue. HENT: Negative. Eyes: Negative. Respiratory: Negative. Cardiovascular: Negative. Gastrointestinal: Positive for abdominal pain. Genitourinary: Negative. Musculoskeletal: Negative. Skin: Negative. Neurological: Positive for weakness. Psychiatric/Behavioral: The patient is nervous/anxious. Vital Signs Temp: [98.2 ??F (36.8 ??C)-100.2 ??F (37.9 ??C)] 99.1 ??F (37.3 ??C) Pulse: [70-96] 73 Resp: [11-39] 31 BP: (85-146)/(53-94) 85/61 Current: Temp: 99.1 ??F (37.3 ??C) Pulse: 73 Resp: (!) 31 BP: (!) 85/61 SpO2: 94 % 24 Hour: BP Min: 85/61 Max: 146/90 Temp Min: 98.2 ??F (36.8 ??C) Max: 100.2 ??F (37.9 ??C) Pulse Min: 70 Max: 96 Resp Min: 11 Max: 39 SpO2 Min: 86 % Max: 97 % Intake/Output: I/O last 3 completed shifts: In: 1767.5 [I.V.:1117.5; IV Piggyback:650] Out: 2925 [Urine:1635; Drains:540; Stool:750] Physical Exam Vitals reviewed. Constitutional: Appearance: He is ill-appearing. HENT: Head: Normocephalic and atraumatic. Mouth/Throat: Mouth: Mucous membranes are dry. Eyes: Pupils: Pupils are equal, round, and reactive to light. Cardiovascular: Rate and Rhythm: Normal rate and regular rhythm. Abdominal: General: Bowel sounds are normal. There is distension. Palpations: Abdomen is soft. Tenderness: There is abdominal tenderness. Comments: Midline abdominal incision with dressing, left-sided WOLF drain with purulent discharge, right-sided ostomy. Abdomen is less distended today. Left groin drainage in place Musculoskeletal: General: No deformity. Skin: General: Skin is warm and dry. Capillary Refill: Capillary refill takes less than 2 seconds. Neurological: Mental Status: He is alert and oriented to person, place, and time. Psychiatric: Mood and Affect: Mood normal. Intake/Output: I/O last 3 completed shifts: In: 1767.5 [I.V.:1117.5; IV Piggyback:650] Out: 2925 [Urine:1635; Drains:540; Stool:750] LABS Results for orders placed or performed during the hospital encounter of 04/09/25 (from the past 24 hours) Glucose, Nova Meter Status: Abnormal Collection Time: 04/14/25 12:33 PM Result Value Ref Range POC-GLUCOSE 132 (H) 70 - 110 mg/dL Generation Technician [id number] Glucose, Nova Meter Status: None Collection Time: 04/14/25 5:53 PM Result Value Ref Range POC-GLUCOSE 106 70 - 110 mg/dL Generation Technician [id number] Basic Metabolic Panel Status: Abnormal Collection Time: 04/15/25 5:11 AM Result Value Ref Range Sodium 137 136 - 145 meq/L Potassium 3.3 (L) 3.4 - 5.1 meq/L CO2 18 (L) 22 - 29 meq/L Chloride 110 98 - 112 meq/L Glucose 155 (H) 82 - 115 mg/dL BUN 6.5 (L) 8.4 - 25.7 mg/dL Creatinine 0.74 0.72 - 1.25 mg/dL BUN/Creatinine 9 8 - 20 Calcium 7.7 (L) 8.4 - 10.2 mg/dL Anion Gap 12 4 - 12 eGFR (mL/min/1.73m2) 100 >=60 mL/min/1.73m2 Osmolality Calc 274.8 mOsm/kg CBC with Automated Diff Status: Abnormal Collection Time: 04/15/25 5:11 AM Result Value Ref Range WBC 10.9 (H) 4.2 - 9.1 K/??L RBC 3.30 (L) 4.63 - 6.08 M/??L Hemoglobin 9.1 (L) 13.7 - 17.5 GM/DL Hematocrit 27.7 (L) 40.1 - 51.0 % MCV 84 79 - 92 fL MCH 27.6 25.7 - 32.2 pg MCHC 32.9 32.3 - 36.5 GM/DL RDW 14.4 11.6 - 14.4 % Platelets 288 140 - 375 K/CU MM MPV 8.5 (L) 9.4 - 12.4 fL % Neutros 73 (H) 34 - 68 % % Lymphs 13 (L) 22 - 53 % % Monos 10 5 - 12 % % Eos 3 1 - 7 % % Baso 1 0 - 1 % NRBC Absolute <0.01 0 - 0.012 K/ul # Neutros 8.02 (H) 1.78 - 5.38 K/??L # Lymphs 1.38 1.32 - 3.57 K/??L # Monos 1.07 (H) 0.30 - 0.82 K/??L # Eos 0.28 0.04 - 0.54 K/??L # Baso 0.05 0.01 - 0.08 K/??L Immature Granulocytes-Relative 1.20 (H) 0.01 - 0.43 % # IG 0.13 (H) 0.00 - 0.03 K/uL Glucose, Nova Meter Status: Abnormal Collection Time: 04/15/25 6:40 AM Result Value Ref Range POC-GLUCOSE 139 (H) 70 - 110 mg/dL Generation Technician [id number] No results found for: PT , INR , PTT CHEM7: Sodium Date Value Ref Range Status 04/15/2025 137 136 - 145 meq/L Final Potassium Date Value Ref Range Status 04/15/2025 3.3 (L) 3.4 - 5.1 meq/L Final Chloride Date Value Ref Range Status 04/15/2025 110 98 - 112 meq/L Final CO2 Date Value Ref Range Status 04/15/2025 18 (L) 22 - 29 meq/L Final BUN Date Value Ref Range Status 04/15/2025 6.5 (L) 8.4 - 25.7 mg/dL Final Creatinine Date Value Ref Range Status 04/15/2025 0.74 0.72 - 1.25 mg/dL Final eGFR (mL/min/1.73m2) Date Value Ref Range Status 04/15/2025 100 >=60 mL/min/1.73m2 Final Calcium Date Value Ref Range Status 04/15/2025 7.7 (L) 8.4 - 10.2 mg/dL Final Lab Results Component Value Date AST 10 (L) 04/12/2025 ALT <7 04/12/2025 No results for input(s): POCGLU in the last 72 hours. No results for input(s): POCPH , POCPCO2 , POCPO2 , POCABG in the last 72 hours. Invalid input(s): POCSAT , POCART , ARTPOC Microbiology: Microbiology Results (last 7 days) Procedure Component Value Units Date/Time Body Fluid Culture + Gram Stain [[id number]] (Abnormal) Collected: 04/11/251625 Order Status: Completed Specimen: Body Fluid from Retroperitoneum Updated: 04/15/25 1030 Result Light Growth Enterococcus faecium Light Growth Klebsiella pneumoniae Light Growth Clostridium tertium Gram Stain Result Moderate gram positive cocci in pairs Many WBCs Anaerobic Culture [[id number]] (Abnormal) Collected: 04/11/25 162 Order Status: Completed Specimen: Body Fluid from Retroperitoneum Updated: 04/15/25 1009 Result Parabacteroides distasonis AFB Culture And Stain [[id number]] Collected: 04/11/25 162 Order Status: Completed Specimen: Body Fluid from Retroperitoneum Updated: 04/12/25 1419 AFB Smear No acid fast bacilli seen MRSA Screen [[id number]] (Normal) Collected: 04/11/25 1649 Order Status: Completed Specimen: Nasal from Nares Updated: 04/11/25 1922 MRSA by PCR [facility] MRSA Not Detected by PCR Radiology Results (last day) No results found for the last 24 hours. No valid procedures specified. ASSESSMENT: Pulmonary On Room Air Tobacco Abuse Marijuana Abuse Neurology: Anxiety/Depression Marijuana Abuse Cardiology: Hypotension post procedure; mild; received Albumin and IVF H/O CAD/CABG and Cardiac stents, HTN/HLD Infectious disease: Sepsis. Abdominal infection. Nephrology: Stable Bun/Cr S/P Cystoscopy with Bilateral ureteral stents Gastroenterology: Recurrent Complicated Diverticulitis with Colovesicular Fistula H/O of Star's procedure with subsequent reversal and incisional hernia repair in 2019 S/P Open Redo LAR with take down of colovesicular fistula with diverting loop illeostomy as well ascystoscopy and bilateral ureteral stent placement 04/09/25 Post Acosta, with infected left groin mesh from previous hernia repair with purulent material drainage into the peritoneal cavity and extraperitoneal abscess in the left groin. Endocrine: DM Hematology: Stable H/H/platelets PLAN: Supplemental O2 prn for O2 sats < 92%, currently patient on 2 L oxygen, patient overall some improvement, with less tachypnea, less work of breathing, stable blood pressure, Recommend to continue to monitor in the ICU. CT abdomen was done showed minimal free fluid and free air consistent with recent operative intervention, perinephric stranding is nonspecific but pyonephritis cannot be excluded, loculated fluid collection in the left inguinal canal could represent an abscess. On 04/11 spoke with the general surgeon on the phone, and the plan to possible take patient to the OR today due to purulent material drainage. On further evaluation, saw the patient, and at this point, patient seems to have an infected left groin mesh from previous hernia repair with purulent material drainage into the peritoneal cavity and extraperitoneal abscess in the left groin, plan at this point to proceed with percutaneous drainage of the left groin and placement ofa drain and this would allow for irrigation of the infected mesh and drainage of purulence and if this fails to try of the intraperitoneal purulence and patient will likely need exploratory laparotomy with washout with possible explant of the left groin mesh. Chest x-ray was done, reviewed,/interpreted independently, no acute infiltrate Duonebs prn Encourage IS/FVD Hemodynamic support MAP > 65 mmgh, currently low normal, on LR at 75 cc/h, if needed will start patient on Levophed and vasopressin. S/P Albumin IVF LR @ 75ml/hr Antibx Flagyl and ceftriaxone per ID. Cultures pending. ID following Nutrition: Defer to surgery. NG tube in place PT/OT Protonix/Lovenox Prognosis: Guarded. High risk further decline. Case discussed with the nurse at the bedside, questions and concerns were addressed. I Dr.Al Carter, have personally evaluated the patient and performed a [id number] diagnostic evaluation on this patient; I have Obtained history, performed physical examination, reviewed laboratory studies. I have independently interpreted chest images. I have actively directed the medical care, formulated diagnosis, and the plan of care. Patient requires a high complexity of decision making for assessment. 31 minutes critical care time was spent. Voice certified professional coder technology (Napartner) is used for dictation of this note and sound-alike words might be erroneously placed despite reviewing the note for accuracy. Errors in dictation may reflect use of voice recognition software and not all errors in certified professional coder may have been detected prior to signing. * Felicitas Riley, PT - 04/15/2025 10:08 AM EDTSummary: Re-Assessment 14 day Images from the original note were not included. Inpatient Physical Therapy 14-Day Reassessment This note will serve as a reassessment in order to update the patient's goals, target date for goals, and overall plan of care to appropriately reflect current presentation and participation in skilled Physical Therapy services. Patient Name: Levar Rand Date of : 1960 Date of Reassessment: 04/15/25 In Time 0940 Out Time 1008 Session Duration 28 minutes Time spent for nursing collaboration, chart and systems review, and clinical reasoning. 10 minutes Total Time 38 minutes General Visit Type: Reassessment Approved By: Nurse Platt Patient Disposition Upon Entry: Supine in bed, Call Light/Pull Cord in reach, All needs met and within reach, Nursing aware/notified, HOB >30 degrees, Side rails up Patient Verified By: Name and Date of Assisted by: cardiovascular techAdrian schulz Precautions Weight-Bearing Status: No Restrictions Precautions: Fall risk Isolation Precautions: Standard Lines, tubes, drains, airway: blood pressure cuff, torres catheter, WOLF drain, peripheral IV, pulse oximeter , telemetry, accordian drain Subjective Subjective: Patient agreeable to physical therapy evaluation and treatment. Discussed the transition from Rwx to cane since pt was completely ind prior to admit. He said he tried a cane once and it was more trouble than it was worth . He said he would rather transition from a walker to using railsin the hallway or touching to furniture at home. He does not want a cane. Pain No - Patient not reporting pain at this time Cognition Overall cognitive status: Patient is awake and alert, attending to directions appropriately, demonstrating good problem solving skills, and aware of any deficits or impairments, if present. Following commands: Follows all commands and directions without difficulty Safety Judgment: Good awareness of safety precautions Objective Vitals Pre-intervention vitals Heart rate: 93 beats per minute Blood pressure: 116/60 mmHg SpO2: 95% O2: room air Post-intervention vitals Heart rate: 100 beats per minute Blood pressure: 131/70 mmHg SpO2: 93% O2 : room air Functional Mobility Bed Mobility Rolling Left: modified independent, HOB elevated Supine to Sit: modified independent, HOB elevated Sit to Supine: modified independent, HOB elevated Transfers Sit to Stand: modified independent, gait belt used, rolling walker used Stand to Sit: modified independent, gait belt used, rolling walker used Gait Gait Assistance: supervision Assistive Device: Gait Belt, Rolling walker Distance: 310' x 2 (2 laps around CTVU) Gait speed: WFL Deviation(s): no deviations noted. Stair Management Patient declined to attempt this date. Wheelchair Mobility Not assessed, patient ambulatory. Outcome Measures NT AM-PAC Basic Mobility Inpatient Short Form How much difficulty does the patient currently have: Turning over in bed (including adjusting bedclothes, sheets, and blankets)? (1) Total/Unable (not able to do the activity or can only perform the activity using assistive devices or requires assistance from another person, including supervision or cueing for safety) Sitting down on and standing up from a chair with arms (e.g., wheelchair, bedside commode, etc.)? (1) Total/Unable (not able to do the activity or can only perform the activity using assistive devices or requires assistance from another person, including supervision or cueing for safety) Moving from lying on back to sitting on side of bed? (1) Total/Unable (not able to do the activity or can only perform the activity using assistive devices or requires assistance from another person,including supervision or cueing for safety) How much help from another person does the patient currently need: Moving to and from a bed to a chair (including a wheelchair)? (4) None (Modified independent/Independent) Need to walk in hospital room? (3) A little (Minimal/Contact guard/Supervision/Setup) Climbing 3-5 steps with a railing? (3) A little (Minimal/Contact guard/Supervision/Setup) Score Raw score=13 t-Scale score=36.74 Standard error=2.99 CMS 0-100%=64.91% MDC=4.72 A raw score of >= 16 is significantly associated with increased odds of discharge to home in addition to consideration made for the patient's cognition and social determinants of health. Balance Static/dynamic sitting and static/dynamic standing balance are all WFL. Activity Tolerance Patient tolerated activity/intervention well with no complaints or adverse events. Treatment Pt agreed to amb but did not want to try transition from walker to cane. He prefers to use rails inhallway (When on a regular floor) or to touch to furniture at home. He does not want a cane. He asked to do 2 laps around CTVU today and wanted back to bed upon return to the room so he could nap until lunch arrives. Assessment Patient presenting with decreased activity tolerance and generalized weakness with functional activities. Because of this, patient would have difficulty with independently performing ambulating on level surfaces, ambulating on uneven surfaces, ambulating household distances, ambulating community distances, and negotiating stairs. These functional limitations put the patient at an increased risk for loss of independence with functional mobility and activities of daily living. Patient would benefit from skilled physical therapy services during length of stay for balance training to decrease risk of falling, endurance training to improve activity tolerance, stair training, gait training, and pr ogression of mobility. Problems: Decreased functional mobility, Decreased gait tolerance, Gait impairment Rehab potential: Good for stated goals Plan Treatment Plan: Therapeutic Exercise, Therapeutic Activity, Gait Training, Transfer Training, Balance Training, Stair Training PT Frequency/Duration: 5x/week for 14 days Recommendations Discharge recommendations: Discharge home/prior living situation. Patient would benefit from continued therapy services. DME recommendations: Patient has no DME/adaptive equipment discharge needs at this time. Goals [id number]: By the target date, patient will perform uyrtxo-vx-[id number] with modified independence, utilizing bed railing, to improve independence with bed mobility and improve overall comfort and well-being. (Goal met 04/15) Otg-eg-[id number]: By the target date, patient will perform sit to stand with modified independence and rolling walker to improve independence with functional mobility, decrease risk of falling, improve ability to participate in activities of daily living that require standing, and return to prior levelof function. (Goal met 04/15) Gait: Patient will ambulate 200'' with stand by assistance and utilizing rolling walker in order toincrease independence with ambulation and improve balance with ambulation and decrease risk of falling (GOAL MET 04/14/25) NEW GAIT GOAL: Pt will amb 200' with straight cane, Supervision, no LOB (Goal D/C 04/15 as pt not interested in cane) NEW GAIT GOAL made on 04/15/25: Pt will amb 375' with gait belt and use of railing in hallway with supervision of PT for safety. Stairs: By the target date, patient will negotiate 4 step(s), with a reciprocal pattern, utilizing no assistive device and stand by assistance, to demonstrate ability to safely negotiate stairs at home. Target Date: 04/29/2025 Goals were discussed with patient Education Patient educated on safety, use of call button, role of physical therapy, and plan of care and following, they were able to verbalize understanding. No further questions or concerns stated. Interdisciplinary Communication Following treatment, therapist communicated with nursing regarding patient's performance during physical therapy session. Patient Disposition Upon Leaving Supine in bed, Call Light/Pull Cord in reach, All needs met and within reach, Nursing aware/notified, HOB >30 degrees, Side rails up If this patient discharges prior to next therapy session, this note serves as the patient's discharge summary. Electronically signed by Felicitas Riley PT - 04/15/25 - 11:42 AM EDT * Enrique Lopez MD - 04/14/2025 1:52 PM EDT Consults PULMONARY AND CRITICAL CARE Consult Note Date of Service: 04/14/2025 Reason for Consult: For critical care management. Referring: Chantelle HPI: This is a 65 y.o. 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 He has had acosta's in 2012 and reversal and incisional hernia repair in 2013. He has been followed outpatient by Colorectal surgery due to concerns for colovesicular fistula immediately proximal to his anastomosis. He underwent Colonoscopy and CT scan and noted inflamed colovesicular fistula between the descending/sigmoid colon junction and the left urinary bladder with bladder wall thickening. There wasalso an abdominal midline ventral hernia containing nonobstructed bowel loops. He presented today for elective open lower anterior resection, takedown of colovesicular fistula, possible diverting loop ileostomy, ventral hernia repair and cystoscopy with temporary ureteral stents. He tolerated the procedure well and transferred to ICU for monitoring. Pulmonary has been consulted for ICU management. Daily progress note : 04/10: Patient was seen and examined today. During rounds patient was awake alert oriented time placeand person. Vitals reviewed stable. Labs and images reviewed, white cell count trending down, creatinine within normal. Chest x-ray from yesterday reviewed/interpreted independently showed no acute infiltrate. Discussed with the primary team at the bedside, and will transfer patient out of the ICU. 04/11: Patient was seen and examined today. During rounds patient was awake, alert, oriented. Overallpatient looks ill, with high risk for decline. Vitals reviewed, currently patient on 2 L oxygen, satting 98%, mild tachypnea and tachycardia noted. Labs reviewed, white cell count trending down, creatinine within normal. CT abdomen was done showed minimal free fluid and free air consistent with recent operative intervention, perinephric stranding is nonspecific but pyonephritis cannot be excluded, loculated fluid collection in the left inguinal canal could represent an abscess. Spoke with the general surgeon on the phone, and the plan to possible take patient to the OR today dueto purulent material drainage . 04/12: Patient was seen and examined today. During rounds patient was awake, alert, oriented. Overallpatient is critically ill, but with some improvement today compared to before. Vitals reviewed, blood pressure low normal, mild tachycardia noted. Labs reviewed, white cell count trending down, creatinine within normal. Lactic acid pending. Chest x-ray from yesterday reviewed/interpreted independently, showed no acute infiltrate. 04/13: Patient was seen and examined today. During rounds patient was awake, alert, oriented, stated that overall feels better. Vitals reviewed, currently patient still with low normal blood pressure. On LR at 75 cc/h. Mild tachypnea, intermittent tachycardia noted. Labs reviewed, white cell count trending down, creatinine within normal. Overall patient continues to improve but still at high risk for decline, will continue to monitor in the ICU. 04/14: Patient was seen and examined today. During rounds patient was awake, alert, but mildly confused, agitated. Vitals reviewed, currently patient on room air, satting 92%. Mild intermittent tachypnea noted, but no tachycardia. Labs reviewed, white cell count trending down. cr wnl. Overall patientstill critically ill with high risk further decline, recommend continue to monitor in the ICU. PAST MEDICAL HISTORY: Past Medical History: Diagnosis Date Anxiety CAD (coronary artery disease) Colovesical fistula Depression Diabetes (HCC) High blood pressure High cholesterol Hypertension Kawasaki disease (HCC) Vitamin D deficiency PAST SURGICAL HISTORY: Past Surgical History: Procedure Laterality Date COLON SURGERY patient stated he had colon surgery (colostomy with reversal) CORONARY ANGIOPLASTY WITH STENT PLACEMENT CORONARY ARTERY BYPASS GRAFT CYSTOSCOPY,INSERTION URETERAL STENTS Bilateral 04/09/2025 Procedure: CYSTOSCOPY, WITH URETERAL STENT INSERTION; Surgeon: Rebekah Lockhart MD; Location: [facility]; Service: General Surgery; Laterality: Bilateral; HAND SURGERY Bilateral HERNIA REPAIR LAPAROSCOPY,LOW ANTERIOR RESECTION N/A 04/09/2025 Procedure: (OPEN LOW ANTERIOR RESECTION WITH TAKEDOWN OF COLOVESICAL FISTULA DIVERTING LOOP ILEOSTOMY VENTRAL HERNIA REPAIR AND CYSTOSCOPY AND STENTS) EXPLANTS OF MESH, REDO LAR,EX LAP LYSIS OF ADHESIONS; Surgeon: Rebekah Lockhart MD; Location: [facility]; Service: General Surgery; Laterality: N/A; Past Surgical History: Procedure Laterality Date COLON SURGERY patient stated he had colon surgery (colostomy with reversal) CORONARY ANGIOPLASTY WITH STENT PLACEMENT CORONARY ARTERY BYPASS GRAFT CYSTOSCOPY,INSERTION URETERAL STENTS Bilateral 04/09/2025 Procedure: CYSTOSCOPY, WITH URETERAL STENT INSERTION; Surgeon: Rebekah Lockhart MD; Location: [facility]; Service: General Surgery; Laterality: Bilateral; HAND SURGERY Bilateral HERNIA REPAIR LAPAROSCOPY,LOW ANTERIOR RESECTION N/A 04/09/2025 Procedure: (OPEN LOW ANTERIOR RESECTION WITH TAKEDOWN OF COLOVESICAL FISTULA DIVERTING LOOP ILEOSTOMY VENTRAL HERNIA REPAIR AND CYSTOSCOPY AND STENTS) EXPLANTS OF MESH, REDO LAR,EX LAP LYSIS OF ADHESIONS; Surgeon: Rebekah Lockhart MD; Location: [facility]; Service: General Surgery; Laterality: N/A; Allergies: No Known Allergies SOCIAL HISTORY: Social History Tobacco Use Smoking status: Every Day Types: Cigarettes Smokeless tobacco: Never Substance Use Topics Alcohol use: Never Drug use: Yes Types: Marijuana Comment: weekly FAMILY HISTORY: family history is not on file. Review of Systems Constitutional: Positive for malaise/fatigue. HENT: Negative. Eyes: Negative. Respiratory: Negative. Cardiovascular: Negative. Gastrointestinal: Positive for abdominal pain. Genitourinary: Negative. Musculoskeletal: Negative. Skin: Negative. Neurological: Positive for weakness. Psychiatric/Behavioral: The patient is nervous/anxious. Vital Signs Temp: [98 ??F (36.7 ??C)-98.4 ??F (36.9 ??C)] 98.4 ??F (36.9 ??C) Pulse: [66-95] 84 Resp: [16-52] 26 BP: (79-138)/(50-94) 104/67 Current: Temp: 98.4 ??F (36.9 ??C) Pulse: 84 Resp: 26 BP: 104/67 SpO2: 92 % 24 Hour: BP Min: 79/50 Max: 138/94 Temp Min: 98 ??F (36.7 ??C) Max: 98.4 ??F (36.9 ??C) Pulse Min: 66 Max: 95 Resp Min: 16 Max: 52 SpO2 Min: 75 % Max: 96 % Intake/Output: I/O last 3 completed shifts: In: 2242.3 [I.V.:1692.3; IV Piggyback:550] Out: 3810 [Urine:1450; Drains:935; Stool:1425] Physical Exam Vitals reviewed. Constitutional: Appearance: He is ill-appearing. HENT: Head: Normocephalic and atraumatic. Mouth/Throat: Mouth: Mucous membranes are dry. Eyes: Pupils: Pupils are equal, round, and reactive to light. Cardiovascular: Rate and Rhythm: Normal rate and regular rhythm. Abdominal: General: Bowel sounds are normal. There is distension. Palpations: Abdomen is soft. Tenderness: There is abdominal tenderness. Comments: Midline abdominal incision with dressing, left-sided WOLF drain with purulent discharge, right-sided ostomy. Abdomen is less distended today. Left groin drainage in place Musculoskeletal: General: No deformity. Skin: General: Skin is warm and dry. Capillary Refill: Capillary refill takes less than 2 seconds. Neurological: Mental Status: He is alert and oriented to person, place, and time. Psychiatric: Mood and Affect: Mood normal. Intake/Output: I/O last 3 completed shifts: In: 2242.3 [I.V.:1692.3; IV Piggyback:550] Out: 3810 [Urine:1450; Drains:935; Stool:1425] LABS Results for orders placed or performed during the hospital encounter of 04/09/25 (from the past 24 hours) Basic Metabolic Panel Status: Abnormal Collection Time: 04/14/25 4:54 AM Result Value Ref Range Sodium 139 136 - 145 meq/L Potassium 3.5 3.4 - 5.1 meq/L CO2 16 (L) 22 - 29 meq/L Chloride 111 98 - 112 meq/L Glucose 104 82 - 115 mg/dL BUN 9.5 8.4 - 25.7 mg/dL Creatinine 0.70 (L) 0.72 - 1.25 mg/dL BUN/Creatinine 14 8 - 20 Calcium 7.4 (L) 8.4 - 10.2 mg/dL Anion Gap 16 (H) 4 - 12 eGFR (mL/min/1.73m2) 102 >=60 mL/min/1.73m2 Osmolality Calc 276.7 mOsm/kg CBC - Hemogram ([facility]J-BKR) Status: Abnormal Collection Time: 04/14/25 4:54 AM Result Value Ref Range WBC 9.0 4.2 - 9.1 K/??L RBC 2.94 (L) 4.63 - 6.08 M/??L Hemoglobin 8.2 (L) 13.7 - 17.5 GM/DL Hematocrit 25.3 (L) 40.1 - 51.0 % MCV 86 79 - 92 fL MCH 27.9 25.7 - 32.2 pg MCHC 32.4 32.3 - 36.5 GM/DL RDW 14.6 (H) 11.6 - 14.4 % Platelets 250 140 - 375 K/CU MM MPV 8.8 (L) 9.4 - 12.4 fL Glucose, Nova Meter Status: Abnormal Collection Time: 04/14/25 7:35 AM Result Value Ref Range POC-GLUCOSE 118 (H) 70 - 110 mg/dL Generation Technician [id number] Glucose, Nova Meter Status: Abnormal Collection Time: 04/14/25 12:33 PM Result Value Ref Range POC-GLUCOSE 132 (H) 70 - 110 mg/dL Generation Technician [id number] No results found for: PT , INR , PTT CHEM7: Sodium Date Value Ref Range Status 04/14/2025 139 136 - 145 meq/L Final Potassium Date Value Ref Range Status 04/14/2025 3.5 3.4 - 5.1 meq/L Final Chloride Date Value Ref Range Status 04/14/2025 111 98 - 112 meq/L Final CO2 Date Value Ref Range Status 04/14/2025 16 (L) 22 - 29 meq/L Final BUN Date Value Ref Range Status 04/14/2025 9.5 8.4 - 25.7 mg/dL Final Creatinine Date Value Ref Range Status 04/14/2025 0.70 (L) 0.72 - 1.25 mg/dL Final eGFR (mL/min/1.73m2) Date Value Ref Range Status 04/14/2025 102 >=60 mL/min/1.73m2 Final Calcium Date Value Ref Range Status 04/14/2025 7.4 (L) 8.4 - 10.2 mg/dL Final Lab Results Component Value Date AST 10 (L) 04/12/2025 ALT <7 04/12/2025 No results for input(s): POCGLU in the last 72 hours. No results for input(s): POCPH , POCPCO2 , POCPO2 , POCABG in the last 72 hours. Invalid input(s): POCSAT , POCART , ARTPOC Microbiology: Microbiology Results (last 7 days) Procedure Component Value Units Date/Time Body Fluid Culture + Gram Stain [[id number]] (Abnormal) Collected: 04/11/25 162 Order Status: Completed Specimen: Body Fluid from Retroperitoneum Updated: 04/14/25 1115 Result Light Growth Enterococcus faecium Gram Stain Result Moderate gram positive cocci in pairs Many WBCs Anaerobic Culture [[id number]] Collected: 04/11/25 162 Order Status: Completed Specimen: Body Fluid from Retroperitoneum Updated: 04/13/25 0745 Result Culture in progress AFB Culture And Stain [[id number]] Collected: 04/11/25 162 Order Status: Completed Specimen: Body Fluid from Retroperitoneum Updated: 04/12/25 1419 AFB Smear No acid fast bacilli seen MRSA Screen [[id number]] (Normal) Collected: 04/11/25 1649 Order Status: Completed Specimen: Nasal from Nares Updated: 04/11/25 1922 MRSA by PCR [facility] MRSA Not Detected by PCR Radiology Results (last day) No results found for the last 24 hours. No valid procedures specified. ASSESSMENT: Pulmonary On Room Air Tobacco Abuse Marijuana Abuse Neurology: Anxiety/Depression Marijuana Abuse Cardiology: Hypotension post procedure; mild; received Albumin and IVF H/O CAD/CABG and Cardiac stents, HTN/HLD Infectious disease: Sepsis. Abdominal infection. Nephrology: Stable Bun/Cr S/P Cystoscopy with Bilateral ureteral stents Gastroenterology: Recurrent Complicated Diverticulitis with Colovesicular Fistula H/O of Star's procedure with subsequent reversal and incisional hernia repair in 2019 S/P Open Redo LAR with take down of colovesicular fistula with diverting loop illeostomy as well ascystoscopy and bilateral ureteral stent placement 04/09/25 Post Acosta, with infected left groin mesh from previous hernia repair with purulent material drainage into the peritoneal cavity and extraperitoneal abscess in the left groin. Endocrine: DM Hematology: Stable H/H/platelets PLAN: Supplemental O2 prn for O2 sats < 92%, currently patient on 2 L oxygen, patient overall some improvement, with less tachypnea, less work of breathing, stable blood pressure, but overall patient was agitated, and looks ill, patient still at high risk further decline. Recommend to continue to monitor in the ICU. CT abdomen was done showed minimal free fluid and free air consistent with recent operative intervention, perinephric stranding is nonspecific but pyonephritis cannot be excluded, loculated fluid collection in the left inguinal canal could represent an abscess. On 04/11 spoke with the general surgeon on the phone, and the plan to possible take patient to the OR today due to purulent material drainage. On further evaluation, saw the patient, and at this point, patient seems to have an infected left groin mesh from previous hernia repair with purulent material drainage into the peritoneal cavity and extraperitoneal abscess in the left groin, plan at this point to proceed with percutaneous drainage of the left groin and placement ofa drain and this would allow for irrigation of the infected mesh and drainage of purulence and if this fails to try of the intraperitoneal purulence and patient will likely need exploratory laparotomy with washout with possible explant of the left groin mesh. Chest x-ray was done, reviewed,/interpreted independently, no acute infiltrate Duonebs prn Encourage IS/FVD Hemodynamic support MAP > 65 mmgh, currently low normal, on LR at 75 cc/h, if needed will start patient on Levophed and vasopressin. S/P Albumin IVF LR @ 75ml/hr Antibx Flagyl and ceftriaxone per ID. Cultures pending. ID following Nutrition: Defer to surgery. NG tube in place PT/OT Protonix/Lovenox Prognosis: Guarded. High risk further decline. Case discussed with the nurse at the bedside, questions and concerns were addressed. I Dr.Al Carter, have personally evaluated the patient and performed a [id number] diagnostic evaluation on this patient; I have Obtained history, performed physical examination, reviewed laboratory studies. I have independently interpreted chest images. I have actively directed the medical care, formulated diagnosis, and the plan of care. Patient requires a high complexity of decision making for assessment. 33 minutes critical care time was spent. Voice certified professional coder technology (Napartner) is used for dictation of this note and sound-alike words might be erroneously placed despite reviewing the note for accuracy. Errors in dictation may reflect use of voice recognition software and not all errors in certified professional coder may have been detected prior to signing. * Rebekah Lockhart MD - 04/14/2025 10:40 AM EDT Subjective Patient is doing fair today. He feels better. He denies any nausea or vomiting. He did tolerate his full liquid diet. He has had roughly 1 L out from his ileostomy. I removed his Torres catheter yesterday as intraoperative testing with methylene blue showed no evidence of dye extravasation. Additionally his left groin percutaneous drainage output was distinctly different from his urinary output. However once removing his Torres catheter we did note that his output from his left groin percutaneous drain increased and he had less urine output than expected. His 19 Brazilian Kenrick drain remains with scant output. 10 cc. I discussed his case with Dr. Swanson who is on-call for urology Review of Systems Objective Last Recorded Vitals Blood pressure 104/67, pulse 79, temperature 98.4 ??F (36.9 ??C), resp. rate 22, height 1.753 m (5'9.02 ), weight 80.5 kg (177 lb 6.1 oz), SpO2 93%. Physical Exam Abdomen is soft, slightly distended. Midline incision is clean dry and intact approximated alexandro.His ileostomy is pink patent and productive with thick output. His surgical drain has some slightlymurky serous output, very limited in volume. His percutaneous drain with sero/sang/purulent drainage, perhaps a bit more thin today. Recently replaced Torres catheter shows clear urine. Labs: Results for orders placed or performed during the hospital encounter of 04/09/25 (from the past 24 hours) Glucose, Nova Meter Status: Abnormal Collection Time: 04/13/25 11:14 AM Result Value Ref Range POC-GLUCOSE 175 (H) 70 - 110 mg/dL Generation Technician [id number] Basic Metabolic Panel Status: Abnormal Collection Time: 04/14/25 4:54 AM Result Value Ref Range Sodium 139 136 - 145 meq/L Potassium 3.5 3.4 - 5.1 meq/L CO2 16 (L) 22 - 29 meq/L Chloride 111 98 - 112 meq/L Glucose 104 82 - 115 mg/dL BUN 9.5 8.4 - 25.7 mg/dL Creatinine 0.70 (L) 0.72 - 1.25 mg/dL BUN/Creatinine 14 8 - 20 Calcium 7.4 (L) 8.4 - 10.2 mg/dL Anion Gap 16 (H) 4 - 12 eGFR (mL/min/1.73m2) 102 >=60 mL/min/1.73m2 Osmolality Calc 276.7 mOsm/kg CBC - Hemogram (SJ-BKR) Status: Abnormal Collection Time: 04/14/25 4:54 AM Result Value Ref Range WBC 9.0 4.2 - 9.1 K/??L RBC 2.94 (L) 4.63 - 6.08 M/??L Hemoglobin 8.2 (L) 13.7 - 17.5 GM/DL Hematocrit 25.3 (L) 40.1 - 51.0 % MCV 86 79 - 92 fL MCH 27.9 25.7 - 32.2 pg MCHC 32.4 32.3 - 36.5 GM/DL RDW 14.6 (H) 11.6 - 14.4 % Platelets 250 140 - 375 K/CU MM MPV 8.8 (L) 9.4 - 12.4 fL Glucose, Nova Meter Status: Abnormal Collection Time: 04/14/25 7:35 AM Result Value Ref Range POC-GLUCOSE 118 (H) 70 - 110 mg/dL Generation Technician [id number] CT DRAINAGE PERITONEAL/RETROPERITONEAL W GUIDANCE Narrative: CT GUIDED DRAIN PLACEMENT HISTORY: Left groin abscess. . ATTENDING RADIOLOGIST: Dr. Gaviria. PHYSICIAN DIRECTOR [facility]: Jean Pierre Hughes PA-C. PROCEDURE: After informed consent was obtained and a time-out was performed, the patient was prepped and draped in the usual sterile fashion over the left groin. Utilizing local anesthesia and sterile technique with a catheter access needle, access to the fluid collection was obtained under direct CT guidance. An Amplatz wire was placed. Serial dilatation was performed. A 10 Brazilian pigtail catheter was placed looped in the fluid collection. Post drain placement films demonstrate the catheter in good position. The patient received moderate conscious sedation. The patient tolerated the procedure well and left the department in good condition. CONSCIOUS SEDATION: 1 mg of IV Versed and 75 mcg of Fentanyl were administered. Continuous vital sign monitoring was used. An RN was present during the sedation process. Overall sedation time was 15 minutes. Impression: Status post CT guided percutaneous drain placement without immediate complication. Sample of the fluid was sent to lab for cultures. Images reviewed, interpreted, and dictated by Dr. Roro Gaviria. Transcribed by Jean Pierre Hughes PA-C XR chest AP portable Narrative: PORTABLE CHEST 04/11/2025 11:00 AM HISTORY: Shortness of air COMPARISON: April 09, 2025 FINDINGS: The patient is status post median sternotomy. The heart is stable in size. The lung sanchez demonstrate no significant change. There is no pneumothorax. The support devices are in good position. Impression: There has been no significant interval change. Continued follow up recommended. Images reviewed, interpreted, and dictated by Dr. Roro Gaviria. Transcribed by Giovany Meza PA-C. CT ABDOMEN/PELVIS WITH IV CONTRAST Standard Protocol Narrative: CT SCAN OF THE ABDOMEN AND PELVIS WITH CONTRAST; 04/11/2025 9:34 AM HISTORY: Epigastric pain. COMPARISON: January 2018. PROCEDURE: The patient was injected with IV contrast. Axial images were obtained from the lung bases to the pubic symphysis by computed tomography. This study was performed with techniques to keep radiation doses as low as reasonably achievable, (ALARA). Individualized dose reduction techniques using automated exposure control or adjustment of mA and/or kV according to the patient size were employed. FINDINGS: ABDOMEN: There is marked degenerative disc disease throughout the lumbar spine. There is grade one anterolisthesis at L5-S1 with bilateral L5 pars defects. There is mild bibasilar atelectasis. There is a gallstone in the gallbladder. There is perinephric stranding bilaterally. There are peripelvic cysts bilaterally. There is a simple cyst projecting off the superior aspect of the right kidney. The solid organs are otherwise unremarkable. There is mesh in the anterior abdominal wall. There are skin alexandro in the anterior abdominal wall. There is trace ascites and free intraperitoneal air. There is a right abdominal ostomy. There is a ventral hernia in the anterior left abdomen containing a small amount of fluid and free air. PELVIS: The urinary bladder is decompressed by a Torres. There is flocculent fluid and debris extending into the left inguinal canal, likely representing an abscess. There is stranding in the anterior abdominal wall. Status post sigmoid colon resection. The appendix is not identified. The bowel loops are mildly distended. There is presacral stranding and fluid. There is stranding in the right inguinal canal. A surgical drain is looped in the pelvis. Impression: Minimal free fluid and free air, consistent with recent operative intervention. Perinephric stranding is nonspecific but pyelonephritis is not excluded. Loculated fluid collection in the left inguinal canal could represent an abscess. Images reviewed, interpreted, and dictated by Roro Gaviria MD Assessment This is a 65-year-old male with significant past medical history and past surgical history. As we have gone along with his care I have learned more about him (as he remembers more). He has a chronically infected left groin mesh which was unknonw to me or to him. He is now postop day 5 from redo low anterior resection and takedown of what is presumed a diverticular colovesicular fistula which actually ended up being a colovesicular/left groin abscess fistula with creation of a diverting loop ileostomy and incisional hernia repair. As we disconnected his colon from the left groin abscesses have allowed purulent material to spill into the peritoneal cavity creating significant postoperative pain as well as abnormal findings. He is now status post percutaneous drain of the left groin which has improved symptoms and hemodynamics. 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 His surgical drain remains scant in output indicating that he is not leaking urine into the peritoneal cavity. Plan We replaced his Torres catheter today, this will stay anchored for a long time Appreciate urology's assistance with this unknown pre-existing extraperitoneal bladder fistula Continue his surgical drain and IR drain Continue regular diet Lovenox and SCDs Ambulation Ostomy education * Hilary Dumont MD - 04/14/2025 10:21 AM EDT Subjective Seen and examined in CTVU. C/O pain Review of Systems Objective Last Recorded Vitals Blood pressure 104/67, pulse 79, temperature 98.4 ??F (36.9 ??C), resp. rate 22, height 1.753 m (5'9.02 ), weight 80.5 kg (177 lb 6.1 oz), SpO2 93%. Physical Exam Labs: Results for orders placed or performed during the hospital encounter of 04/09/25 (from the past 24 hours) Glucose, Nova Meter Status: Abnormal Collection Time: 04/13/25 11:14 AM Result Value Ref Range POC-GLUCOSE 175 (H) 70 - 110 mg/dL Generation Technician [id number] Basic Metabolic Panel Status: Abnormal Collection Time: 04/14/25 4:54 AM Result Value Ref Range Sodium 139 136 - 145 meq/L Potassium 3.5 3.4 - 5.1 meq/L CO2 16 (L) 22 - 29 meq/L Chloride 111 98 - 112 meq/L Glucose 104 82 - 115 mg/dL BUN 9.5 8.4 - 25.7 mg/dL Creatinine 0.70 (L) 0.72 - 1.25 mg/dL BUN/Creatinine 14 8 - 20 Calcium 7.4 (L) 8.4 - 10.2 mg/dL Anion Gap 16 (H) 4 - 12 eGFR (mL/min/1.73m2) 102 >=60 mL/min/1.73m2 Osmolality Calc 276.7 mOsm/kg CBC - Hemogram (SJ-BKR) Status: Abnormal Collection Time: 04/14/25 4:54 AM Result Value Ref Range WBC 9.0 4.2 - 9.1 K/??L RBC 2.94 (L) 4.63 - 6.08 M/??L Hemoglobin 8.2 (L) 13.7 - 17.5 GM/DL Hematocrit 25.3 (L) 40.1 - 51.0 % MCV 86 79 - 92 fL MCH 27.9 25.7 - 32.2 pg MCHC 32.4 32.3 - 36.5 GM/DL RDW 14.6 (H) 11.6 - 14.4 % Platelets 250 140 - 375 K/CU MM MPV 8.8 (L) 9.4 - 12.4 fL Glucose, Nova Meter Status: Abnormal Collection Time: 04/14/25 7:35 AM Result Value Ref Range POC-GLUCOSE 118 (H) 70 - 110 mg/dL Generation Technician [id number] CT DRAINAGE PERITONEAL/RETROPERITONEAL W GUIDANCE Narrative: CT GUIDED DRAIN PLACEMENT HISTORY: Left groin abscess. . ATTENDING RADIOLOGIST: Dr. Gaviria. PHYSICIAN DIRECTOR [facility]: JeanP ierre Hughes PA-C. PROCEDURE: After informed consent was obtained and a time-out was performed, the patient was prepped and draped in the usual sterile fashion over the left groin. Utilizing local anesthesia and sterile technique with a catheter access needle, access to the fluid collection was obtained under direct CT guidance. An Amplatz wire was placed. Serial dilatation was performed. A 10 Brazilian pigtail catheter was placed looped in the fluid collection. Post drain placement films demonstrate the catheter in good position. The patient received moderate conscious sedation. The patient tolerated the procedure well and left the department in good condition. CONSCIOUS SEDATION: 1 mg of IV Versed and 75 mcg of Fentanyl were administered. Continuous vital sign monitoring was used. An RN was present during the sedation process. Overall sedation time was 15 minutes. Impression: Status post CT guided percutaneous drain placement without immediate complication. Sample of the fluid was sent to lab for cultures. Images reviewed, interpreted, and dictated by Dr. Roro Gaviria. Transcribed by Jean Pierre Hughes PA-C XR chest AP portable Narrative: PORTABLE CHEST 04/11/2025 11:00 AM HISTORY: Shortness of air COMPARISON: April 09, 2025 FINDINGS: The patient is status post median sternotomy. The heart is stable in size. The lung sanchez demonstrate no significant change. There is no pneumothorax. The support devices are in good position. Impression: There has been no significant interval change. Continued follow up recommended. Images reviewed, interpreted, and dictated by Dr. Roro Gaviria. Transcribed by Giovany Meza PA-C. CT ABDOMEN/PELVIS WITH IV CONTRAST Standard Protocol Narrative: CT SCAN OF THE ABDOMEN AND PELVIS WITH CONTRAST; 04/11/2025 9:34 AM HISTORY: Epigastric pain. COMPARISON: January 2018. PROCEDURE: The patient was injected with IV contrast. Axial images were obtained from the lung bases to the pubic symphysis by computed tomography. This study was performed with techniques to keep radiation doses as low as reasonably achievable, (ALARA). Individualized dose reduction techniques using automated exposure control or adjustment of mA and/or kV according to the patient size were employed. FINDINGS: ABDOMEN: There is marked degenerative disc disease throughout the lumbar spine. There is grade one anterolisthesis at L5-S1 with bilateral L5 pars defects. There is mild bibasilar atelectasis. There is a gallstone in the gallbladder. There is perinephric stranding bilaterally. There are peripelvic cysts bilaterally. There is a simple cyst projecting off the superior aspect of the right kidney. The solid organs are otherwise unremarkable. There is mesh in the anterior abdominal wall. There are skin alexandro in the anterior abdominal wall. There is trace ascites and free intraperitoneal air. There is a right abdominal ostomy. There is a ventral hernia in the anterior left abdomen containing a small amount of fluid and free air. PELVIS: The urinary bladder is decompressed by a Torres. There is flocculent fluid and debris extending into the left inguinal canal, likely representing an abscess. There is stranding in the anterior abdominal wall. Status post sigmoid colon resection. The appendix is not identified. The bowel loops are mildly distended. There is presacral stranding and fluid. There is stranding in the right inguinal canal. A surgical drain is looped in the pelvis. Impression: Minimal free fluid and free air, consistent with recent operative intervention. Perinephric stranding is nonspecific but pyelonephritis is not excluded. Loculated fluid collection in the left inguinal canal could represent an abscess. Images reviewed, interpreted, and dictated by Roro Gaviria MD /12/2024 Procedure: OPEN REDO LOW ANTERIOR RESECTION WITH TAKEDOWN OF COLOVESICAL FISTULA DIVERTING LOOP ILEOSTOMY VENTRAL HERNIA REPAIR EXPLANT OF ABDOMINAL WALL MESH LYSIS OF ADHESIONS CYSTOSCOPY WITH URETERAL STENT INSERTION (Urology) Assessment #Colovesicular fistula: #Recurrent diverticulitis #Diabetes: #Hypertension: #Hyperlipidemia: #Tobacco use disorder: 04/13/2025 Plan IV Rocephin/Flagyl Labs In a.m. Infectious disease following NG tube was removed Clear liquid PT OT Patient can be transferred to the floor 04/14/2025 Continue current management Can transfer to floor if ok with other subspecialties Discharge Planning: Advance diet encourage activity Patient will need rehab next week Discharge Planning: * Felicitas Riley, PT - 04/14/2025 10:18 AM EDT Images from the original note were not included. Inpatient Physical Therapy Treatment Patient Name: Levar Rand Date of : 1960 Date of Treatment: 04/14/25 Start Time 951 Stop Time 1018 Session Duration 26 minutes General Visit Type: Treatment Approved by: Nurse Feliciano Patient Disposition Upon Entry: Supine in bed, Call Light/Pull Cord in reach, All needs met and within reach, Nursing aware/notified, HOB >30 degrees, Side rails up Patient Verified By: Name and Date of Assisted by: cardiovascular tech, Shaniqua Precautions Weight-Bearing Status: No Restrictions Precautions: Fall risk Isolation Precautions: Standard Subjective Subjective: Patient agreeable to physical therapy treatment. Pt asked to go back to bed upon returnto the room because he did not sleep much last night. RN says this is ok. Pain No - Patient not reporting pain at this time Cognition Overall cognitive status: Patient is awake and alert, attending to directions appropriately, demonstrating good problem solving skills, and aware of any deficits or impairments, if present. Following commands: Follows all commands and directions without difficulty Safety Judgment: Good awareness of safety precautions Objective Vitals Stable throughout session. Functional Mobility Bed Mobility: Rolling Left: supervision, HOB elevated, use of bed features Supine to Sit: supervision, HOB elevated, use of bed features Sit to Supine: supervision, HOB elevated, use of bed features Transfers Sit to Stand: supervision, gait belt used, rolling walker used Stand to Sit: supervision, gait belt used, rolling walker used Gait Gait Assistance: supervision Assistive Device: Gait Belt, Rolling walker Distance: 310' Gait speed: WFL Deviation(s): no deviations noted. Stair Management Patient declined to attempt this date. Wheelchair Mobility Not assessed, patient ambulatory. AM-PAC Basic Mobility Inpatient Short Form How much difficulty does the patient currently have: Turning over in bed (including adjusting bedclothes, sheets, and blankets)? (1) Total/Unable (not able to do the activity or can only perform the activity using assistive devices or requires assistance from another person, including supervision or cueing for safety) Sitting down on and standing up from a chair with arms (e.g., wheelchair, bedside commode, etc.)? (1) Total/Unable (not able to do the activity or can only perform the activity using assistive devices or requires assistance from another person, including supervision or cueing for safety) Moving from lying on back to sitting on side of bed? (1) Total/Unable (not able to do the activity or can only perform the activity using assistive devices or requires assistance from another person,including supervision or cueing for safety) How much help from another person does the patient currently need: Moving to and from a bed to a chair (including a wheelchair)? (3) A little (Minimal/Contact guard/Supervision/Setup) Need to walk in hospital room? (3) A little (Minimal/Contact guard/Supervision/Setup) Climbing 3-5 steps with a railing? (3) A little (Minimal/Contact guard/Supervision/Setup) Score Raw score=12 t-Scale score=35.33 Standard error=3.08 CMS 0-100%=68.66% MDC=4.72 A raw score of >= 16 is significantly associated with increased odds of discharge to home in addition to consideration made for the patient's cognition and social determinants of health. Balance Static/dynamic sitting and static/dynamic standing balance are all WFL. Activity Tolerance Patient tolerated activity/intervention well with no complaints or adverse events. Treatment Pt was supine in bed and asked if RN could assist him in emptying his colostomy bag prior to amb. He then mobilized as noted above and went back to bed upon return to the room due to not sleeping much overnight. Assessment Patient presenting with decreased activity tolerance and generalized weakness with functional activities. Because of this, patient would have difficulty with independently performing ambulating on level surfaces, ambulating on uneven surfaces, ambulating household distances, ambulating community distances, and negotiating stairs. These functional limitations put the patient at an increased risk for loss of independence with functional mobility and activities of daily living. Patient would benefit from skilled physical therapy services during length of stay for balance training to decrease risk of falling, endurance training to improve activity tolerance, stair training, gait training, transfer training, and progression of mobility. Problems: Decreased functional mobility, Decreased gait tolerance, Decreased activity tolerance, Gait impairment Rehab potential: Good for stated goals Plan Treatment plan: Continue per POC. PT Frequency/Duration: 5x/week for 14 days Recommendations Discharge recommendations: Discharge home/prior living situation. Patient would benefit from continued therapy services. DME recommendations: Patient has no DME/adaptive equipment discharge needs at this time. Goals [id number]: By the target date, patient will perform [id number] with modified independence, utilizing bed railing, to improve independence with bed mobility and improve overall comfort and well-being. [id number]: By the target date, patient will perform sit to stand with modified independence and rolling walker to improve independence with functional mobility, decrease risk of falling, improve ability to participate in activities of daily living that require standing, and return to prior levelof function. Gait: Patient will ambulate 200'' with stand by assistance and utilizing rolling walker in order toincrease independence with ambulation and improve balance with ambulation and decrease risk of falling (GOAL MET 04/14/25) NEW GAIT GOAL: Pt will amb 200' with straight cane, Supervision, no LOB Stairs: By the target date, patient will negotiate 4 step(s), with a reciprocal pattern, utilizing no assistive device and stand by assistance, to demonstrate ability to safely negotiate stairs at home. Target Date: 04/24/2025 Progress towards goals: progressing Education Patient educated on safety, use of call button, role of physical therapy, and plan of care and following, they were able to verbalize understanding. No further questions or concerns stated. Interdisciplinary Communication Following treatment, therapist communicated with nursing regarding patient's performance during physical therapy session. Patient Disposition Upon Leaving Supine in bed, Call Light/Pull Cord in reach, All needs met and within reach, Nursing aware/notified, HOB >30 degrees, Side rails down If this patient discharges prior to next therapy session, this note serves as the patient's discharge summary. Electronically signed by Felicitas Riley PT - 04/14/25 - 1:47 PM EDT * Ramos Alves RN - 04/14/2025 6:53 AM EDT Patient F/C discontinued last PM at 1800 per offgoing RN report. Patient had not voided this shift and Bladder scan with repeat showed less than 50cc. Primary team providers notified at approx 0400 that no urine output had occurred. Advised to continue to monitor follow up with pulm. At approx 0500patients abd accordion drain emptied with only 100 cc output this shift. With same as previous out prior shift milky red appearance. Accordion reset multiple times this shift with no increase in output. After empty at 0500 and reset at this time. And Deflation of air in bag. Patient dumped 225ml ofstraw yellow drainage Change in color and consistency to previous shift. Line flushed after this chau inage cleared and removed from bag. Concern that this could be urine. With conference with body team member decision made to I&O patient with 14fr cath to confirm bladder empty. I&O cath returned 225 urine. When placing containers from I&O cath and accordian last dump side by side output is almost identical. Accordion drain has an extra very subtle pink/red tinge. Diminished urine output while receiving 75ml per hour LR and shift in Accordion drain is concerning and decision made to pageon call Colorectal surgery field education coordinator. Awaiting return call. Patient had been having hypotension this shift but this is consistent with previous night and patient recent status while maintaining MAP greater than 65. 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 * Suri Alcaraz RN - 04/13/2025 8:03 PM EDT Sepsis Zone Tool provided to patient and/or family at bedside using the Explanation, Verbalizes Understanding, Demonstrated Understanding, and Needs Reinforcement. * Murtaza Amato MD - 04/13/2025 4:28 PM EDT Images from the original note were not included. [facility] INFECTIOUS DISEASE PROGRESS NOTE Levar Rand 1960 [id number] Date of consult: 04/10/2025 Admit date: 04/09/2025 Requesting Provider: @[email or web address]@ Evaluating physician: Murtaza Amato MD Reason for Consultation: Colovesical fistula repair 04/09/2025, groin abscess left I and D 04/11/25 Chief Complaint: Above Subjective History of present illness: Patient is a 65 y.o. Yr old male with a history of diabetes mellitus type 2, essential hypertension, hyperlipidemia, ongoing smoking, perforated diverticulitis with Zina procedure 2011 with reversal 2011, incisional hernia status post ventral hernia repair with Broughton-Pablo 2013, and colovesical fis sandra. Possible need for pacemaker but held off because of fistula. The patient was admitted for an elective repair to [facility] 04/09/2025. He underwent surgery with Dr. Rebekah Lockhart, and Dr. Asim Cancino on 04/09/2025. There was no rebekah abscess or significant purulence noted. Therewas the presence of mesh noted from previous repairs of inguinal and abdominal hernias. Mesh was partially excised. I was consulted on 04/10/2025 for further evaluation and treatment. No reported history of ill contacts, zoonotic exposures, TB, HIV, significant travel, immunocompromised state. 04/11/2025 history reviewed. Slow improvement. No high fever. Status post repair colovesical fistula with mesh resection. Continues on ceftriaxone and metronidazole until 04/19. Occasional abdominal pain. CT scan of the abdomen and pelvis on 04/11 with left inguinal canal fluid which may be abscess. 04/12/2025 history reviewed. Status post aspiration left groin abscess 04/11, status post colovesical fistula repair with mesh 04/09. No high fever. Tolerating ceftriaxone and metronidazole until 04/19. MRSA screen negative, 04/11 culture gram-positive cocci in pairs. 04/13/2025 history reviewed. Continues to improve. Tolerating metronidazole and ceftriaxone until 04/19 and reassess. 04/11 left groin aspiration culture positive for gram-positive cocci in pairs. Negative MRSA screen. Status post colovesical fistula repair with mesh on 04/09. Past Medical History: Diagnosis Date Anxiety CAD (coronary artery disease) Colovesical fistula Depression Diabetes (HCC) High blood pressure High cholesterol Hypertension Kawasaki disease (HCC) Vitamin D deficiency Past Surgical History: Procedure Laterality Date COLON SURGERY patient stated he had colon surgery (colostomy with reversal) CORONARY ANGIOPLASTY WITH STENT PLACEMENT CORONARY ARTERY BYPASS GRAFT CYSTOSCOPY,INSERTION URETERAL STENTS Bilateral 04/09/2025 Procedure: CYSTOSCOPY, WITH URETERAL STENT INSERTION; Surgeon: Rebekah Lockhart MD; Location: [facility]; Service: General Surgery; Laterality: Bilateral; HAND SURGERY Bilateral HERNIA REPAIR LAPAROSCOPY,LOW ANTERIOR RESECTION N/A 04/09/2025 Procedure: (OPEN LOW ANTERIOR RESECTION WITH TAKEDOWN OF COLOVESICAL FISTULA DIVERTING LOOP ILEOSTOMY VENTRAL HERNIA REPAIR AND CYSTOSCOPY AND STENTS) EXPLANTS OF MESH, REDO LAR,EX LAP LYSIS OF ADHESIONS; Surgeon: Rebekah Lockhart MD; Location: [facility]; Service: General Surgery; Laterality: N/A; Pediatric History Patient Parents Not on file Other Topics Concern Not on file Social History Narrative Not on file Positive for smoking, no alcohol or drug use family history is not on file. Reviewed and unremarkable No Known Allergies There is no immunization history on file for this patient. Medication: @Scheduled Meds: atorvastatin 40 mg oral Every Night 40 mg at 04/12/252044 cefTRIAXone 2 g intravenous Q24H IVPB Stopped at 04/13/25 0932 enoxaparin 40 mg subcutaneous Q24H 40 mg at 04/12/25 1632 hydrogen peroxide topical BID Given at 04/13/25 0903 [Held by provider] metoprolol succinate 50 mg oral Every Night metroNIDAZOLE 500 mg intravenous Q6H [facility] IVPB Stopped at 04/13/25 1215 pantoprazole 40 mg intravenous Daily 40 mg at 04/13/25 0902 QUEtiapine 200 mg oral Every Night 200 mg at 04/12/252044 tiZANidine 4 mg oral TID 4 mg at 04/13/25 1543 Continuous Infusions: Current Facility-Administered Medications Medication Dose Route Frequency Provider Last Rate Last Admin atorvastatin (LIPITOR) tablet 40 mg 40 mg oral Every Night Ismaeel Mercedes, DO 40 mg at 04/12/252044 cefTRIAXone (ROCEPHIN) 2 g in sodium chloride 0.9 % (NS) 50 mL SHANELLE IVPB 2 g intravenous Q24H MD Pietro IVPB Stopped at 04/13/2532 dextrose 50% (D50W) injection 25 g 25 g intravenous Q15 Min PRN Ismaeel Mercedes, DO diazePAM (VALIUM) injection 2.5 mg 2.5 mg intravenous Q6H PRN Rebekah Lockhart MD 2.5 mg at 04/10/25 1518 enoxaparin (LOVENOX) syringe 40 mg 40 mg subcutaneous Q24H Rebekah Lockhart MD 40 mg at 04/12/25 1632 glucagon injection 1 mg 1 mg intraMUSCULAR Q15 Min PRN Ismaeel Mercedes, DO glucose chew tab 16 g 16 g oral Q15 Min PRN Ismaeel Mercedes, DO hydrogen peroxide external solution 3% topical BID Rebekah Lockhart MD Given at 04/13/25 0903 HYDROmorphone (DILAUDID) injection 0.4 mg 0.4 mg intravenous Q4H PRN Kulwinder Donovan MD lactated Ringer's infusion 75 mL/hr intravenous Continuous Rebekah Lockhart MD 75 mL/hr at 04/13/25 1542 75 mL/hr at 04/13/25 1542 [Held by provider] metoprolol succinate (TOPROL-XL) 24 hr tablet 50 mg 50 mg oral Every Night MD Inocencio metroNIDAZOLE (FLAGYL) IVPB 500 mg in sodium chloride 0.9 % 100 mL (premix) 500 mg intravenous Q6H AWA Rebekah Lockhart MD IVPB Stopped at 04/13/25 1215 morphine injection 4 mg 4 mg intravenous Q4H PRN Rebekah Lockhart MD 4 mg at 04/13/25 0906 nicotine (NICODERM CQ) 21 mg/24 hr patch 1 patch 1 patch transdermal Daily PRN Ismabonita Long, DO ondansetron (ZOFRAN-ODT) disintegrating tablet 4 mg 4 mg oral Q8H PRN Rebekah Lockhart MD Or ondansetron (ZOFRAN) injection 4 mg 4 mg intravenous Q8H PRN Rebekah Lockhart MD oxyCODONE (ROXICODONE) immediate release tablet 5 mg 5 mg oral Q4H PRN Rebekah Lockhart MD 5 mg at04/13/25 1543 pantoprazole (PROTONIX) injection 40 mg 40 mg intravenous Daily Rebekah Lockhart MD 40 mg at 04/13/25 0902 QUEtiapine (SEROquel) tablet 200 mg 200 mg oral Every Night Ismaeel Mercedes, DO 200 mg at 04/12/25 2045 sodium chloride 0.9% (NS) bolus 1,000 mL intravenous PRN Rebekah Lockhart MD tiZANidine (ZANAFLEX) tablet 4 mg 4 mg oral TID Ismaeel Mercedes, DO 4 mg at 04/13/25 1543 PRN Meds:.@MEDSPRN@ Please refer to the medical record for a full medication list Review of Systems: Constitutional-- No Fever, chills or sweats. Appetite good, and no malaise. No fatigue. HEENT-- No new vision, hearing or throat complaints. No epistaxis or oral sores. Denies odynophagiaor dysphagia. No odynophagia or dysphagia. No headache, photophobia or neck stiffness. CV-- No chest pain, palpitation or syncope Resp-- No SOB/cough/Hemoptysis GI- No nausea, vomiting, or diarrhea. No hematochezia, melena, or hematemesis. Denies jaundice or chronic liver disease. -- No dysuria, hematuria, or flank pain. Denies hesitancy, urgency. Lymph- no swollen lymph nodes in neck/axilla or groin. Heme- No active bruising or bleeding; no Hx of DVT or PE. MS-- no swelling or pain in the bones or joints of arms/legs. No new back pain. Neuro-- No acute focal weakness or numbness in the arms or legs. No seizures. Skin--No rashes or lesions Physical Exam: Vital Signs Temp: [97.3 ??F (36.3 ??C)-98.9 ??F (37.2 ??C)] 97.3 ??F (36.3 ??C) Pulse: [72-104] 79 Resp: [16-49] 29 BP: (71-132)/(49-81) 76/58 Blood pressure (!) 76/58, pulse 79, temperature 97.3 ??F (36.3 ??C), temperature source Axillary, resp. rate 29, height 1.753 m (5' 9.02 ), weight 80.5 kg (177 lb 6.1 oz), SpO2 93%. GENERAL: Awake and alert, in minimal distress. Appears older than stated age. Resting in chair. HEENT: Normocephalic, atraumatic. Oropharynx without thrush. Dentition in fair repair. No cervical adenopathy. No neck masses. Ears externally normal, Nose externally normal. Trachea midline. EYES: No conjunctival injection. No icterus. EOM full. LYMPHATICS: No lymphadenopathy of the neck or axillary or inguinal regions. HEART: No murmur, gallop, or pericardial friction rub. Reg rate rhythm. LUNGS: Clear to auscultation and percussion. No respiratory distress, no use of accessory muscles. No rales or rhonchi. ABDOMEN: Soft, nontender, nondistended. No appreciable HSM. Bowel sounds normal. Obese. SKIN: Warm and dry without cutaneous eruptions. No nodules. Surgical dressings in place abdomen andgroin. PSYCHIATRIC: Mental status lucid. No confusion. EXT: No cellulitic change. Normal ROM. NEURO: Oriented to name, nonfocal Results Review: I reviewed the patient's new clinical results. Recent Labs Lab(s) Units 04/13/25 0708 04/12/25 0406 04/11/25 0326 WBC K/??L 11.1* 12.7* 14.2* HGB GM/DL 9.2* 9.2* 9.8* HCT % 27.6* 28.9* 30.2* PLT K/CU MM 241 225 215 Recent Labs Lab(s) Units 04/13/25 1114 04/13/25 0708 NA meq/L -- 139 K meq/L -- 3.4 CL meq/L -- 111 CO2 meq/L -- 18* BUN mg/dL -- 8.5 CREATININE mg/dL -- 0.74 GLUCOSE mg/dL 175* 116* CALCIUM mg/dL -- 8.1* Recent Labs Lab(s) Units 04/12/25 0406 ALKPHOS U/L 52 BILITOT mg/dL 0.5 ALT U/L <7 AST U/L 10* No results for input(s): SEDRATE in the last 168 hours. No results for input(s): CRP in the last 168 hours. No results for input(s): VANCOTROUGH , VANCORANDOM in the last 168 hours. No results for input(s): LACTATE in the last 168 hours. Estimated Creatinine Clearance: 72.7 mL/min (by C-G formula based on SCr of 0.74 mg/dL). @LABRCNTIP (cpk,ast,alt,alkaline phosphatase)@ Microbiology: Microbiology Results (last 7 days) Procedure Component Value Units Date/Time Body Fluid Culture + Gram Stain [[id number]] Collected: 04/11/251625 Order Status: Completed Specimen: Body Fluid from Retroperitoneum Updated: 04/13/25 1201 Result Culture in progress Gram Stain Result Moderate gram positive cocci in pairs Many WBCs Anaerobic Culture [[id number]] Collected: 04/11/251625 Order Status: Completed Specimen: Body Fluid from Retroperitoneum Updated: 04/13/25 0745 Result Culture in progress AFB Culture And Stain [[id number]] Collected: 04/11/251625 Order Status: Completed Specimen: Body Fluid from Retroperitoneum Updated: 04/12/25 1419 AFB Smear No acid fast bacilli seen MRSA Screen [[id number]] (Normal) Collected: 04/11/25 1649 Order Status: Completed Specimen: Nasal from Nares Updated: 04/11/25 1922 MRSA by PCR [facility] MRSA Not Detected by PCR Radiology: Radiology Results (last 3 days) Procedure Component Value Units Date/Time CT DRAINAGE PERITONEAL/RETROPERITONEAL W GUIDANCE [[id number]] Collected: 04/11/25 1653 Order Status: Completed Updated: 04/11/25 1701 Narrative: CT GUIDED DRAIN PLACEMENT HISTORY: Left groin abscess. . ATTENDING RADIOLOGIST: Dr. Gaviria. PHYSICIAN DIRECTOR [facility]: Jean Pierre Hughes PA-C. PROCEDURE: After informed consent was obtained and a time-out was performed, the patient was prepped and draped in the usual sterile fashion over the left groin. Utilizing local anesthesia and sterile technique with a catheter access needle, access to the fluid collection was obtained under direct CT guidance. An Amplatz wire was placed. Serial dilatation was performed. A 10 Brazilian pigtail catheter was placed looped in the fluid collection. Post drain placement films demonstrate the catheter in good position. The patient received moderate conscious sedation. The patient tolerated the procedure well and left the department in good condition. CONSCIOUS SEDATION: 1 mg of IV Versed and 75 mcg of Fentanyl were administered. Continuous vital sign monitoring was used. An RN was present during the sedation process. Overall sedation time was 15 minutes. Impression: Status post CT guided percutaneous drain placement without immediate complication. Sample of the fluid was sent to lab for cultures. Images reviewed, interpreted, and dictated by Dr. Roro Gaviria. Transcribed by Jean Pierre Hughes PA-C XR chest AP portable [[id number]] Collected: 04/11/25 1224 Order Status: Completed Updated: 04/11/25 1229 Narrative: PORTABLE CHEST 04/11/2025 11:00 AM HISTORY: Shortness of air COMPARISON: April 09, 2025 FINDINGS: The patient is status post median sternotomy. The heart is stable in size. The lung sanchez demonstrate no significant change. There is no pneumothorax. The support devices are in good position. Impression: There has been no significant interval change. Continued follow up recommended. Images reviewed, interpreted, and dictated by Dr. Roro Gaviria. Transcribed by Giovany Meza PA-C. CT ABDOMEN/PELVIS WITH IV CONTRAST Standard Protocol [[id number]] Collected: 04/11/25 1000 Order Status: Completed Updated: 04/11/25 1014 Narrative: CT SCAN OF THE ABDOMEN AND PELVIS WITH CONTRAST; 04/11/2025 9:34 AM HISTORY: Epigastric pain. COMPARISON: January 2018. PROCEDURE: The patient was injected with IV contrast. Axial images were obtained from the lung bases to the pubic symphysis by computed tomography. This study was performed with techniques to keep radiation doses as low as reasonably achievable, (ALARA). Individualized dose reduction techniques using automated exposure control or adjustment of mA and/or kV according to the patient size were employed. FINDINGS: ABDOMEN: There is marked degenerative disc disease throughout the lumbar spine. There is grade one anterolisthesis at L5-S1 with bilateral L5 pars defects. There is mild bibasilar atelectasis. There is a gallstone in the gallbladder. There is perinephric stranding bilaterally. There are peripelvic cysts bilaterally. There is a simple cyst projecting off the superior aspect of the right kidney. The solid organs are otherwise unremarkable. There is mesh in the anterior abdominal wall. There are skin alexandro in the anterior abdominal wall. There is trace ascites and free intraperitoneal air. There is a right abdominal ostomy. There is a ventral hernia in the anterior left abdomen containing a small amount of fluid and free air. PELVIS: The urinary bladder is decompressed by a Torres. There is flocculent fluid and debris extending into the left inguinal canal, likely representing an abscess. There is stranding in the anterior abdominal wall. Status post sigmoid colon resection. The appendix is not identified. The bowel loops are mildly distended. There is presacral stranding and fluid. There is stranding in the right inguinal canal. A surgical drain is looped in the pelvis. Impression: Minimal free fluid and free air, consistent with recent operative intervention. Perinephric stranding is nonspecific but pyelonephritis is not excluded. Loculated fluid collection in the left inguinal canal could represent an abscess. Images reviewed, interpreted, and dictated by Roro Gaviria MD IMPRESSION: Colovesical fistula repaired 04/09/2025 without obvious abscess but some evidence of inflammation, with partial resection of previous Broughton-Pablo mesh. Fluid in the left inguinal canal postop versus abscess versus other. Seen on CT scan 04/11. Left groin abscess status post aspiration 04/11 with gram-positive in pairs. MRSA screen negative Leukocytosis, neutrophilic related to above issues. Anemia, acute postoperative blood loss and chronic disease. Worse. Diabetes mellitus type 2 with increased risk for infection. Hypocalcemia 8.1, worse. Ongoing smoking. Acute hypoxic respiratory failure, 2 L/min nasal cannula oxygen on 04/11 may be related to atelectasis versus COPD versus other. Room air on 04/13. PLAN: Diagnostically, continue to follow patient's physical exam, CBC, CMP, CRP, radiographs. Therapeutically, continue ceftriaxone plus metronidazole while in hospital, with probable de-escalation to amoxicillin/clavulanate, with duration of antibiotics until 04/19/2025 for longer. Patient had some evidence of inflammation at the time of surgery of his colovesical fistula repair but no rebekah abscess. Concerns for Broughton-Pablo mesh in place which was partially resected. Future concerns could include potential infection of Broughton-Pablo mesh which is a difficult clinical problem to remedy and can become a chronic focus of infection. Especially important and lieu of his future considerations for pacemaker. Not clear what optimal duration of antibiotics would be in the setting given the absence of systemic signs of infection or abscess. Then reassess. Supportive care. Room air on 04/10. 04/11/2025 2 L/min nasal cannula oxygen. I discussed the patient's findings and my recommendations with the patient and nursing. See next onMonday, call sooner if needed. Thank you for asking me to see Levar Rand. Our group would be pleased to follow this patient over the course of their hospitalization and assist with outpatient antimicrobial therapy, as indicated. Further recommendations depend on the results of the cultures and clinical course. The patient hasan increased risk for adverse drug reactions, complications of IV access, readmission. Side effectsof medications were discussed. This visit included the following complex service elements: Complex medical decision-making associated with antimicrobial prescribing. In-depth chart review with high level synthesis for complex diagnoses. Managed infection prevention and treatment protocol associated with transitions of care for this complex patient. Counseled patients, family members, and/or caregivers regarding antimicrobial stewardship and resistance for the patient. Murtaza Amato MD 04/13/2025 * Celia Mosqueda RN - 04/13/2025 2:55 PM EDT 04/13/25 1453 Home Environment Type of Residence Private residence Living Arrangements Alone Support Systems Children;Friends/neighbors Accessibilty Issues None Patient returning to prior living situation? Yes Adherence Patient has moderate rate of compliance with treatment. Motivation Patient has moderate desire for learning/change. Affect Behavior Appropriate Prior/Regular Transportation Family Needs Assistance with Transportation Yes ADL Assessment Current Sensory Deficits None Patient's Vision Adequate to Safely Complete Daily Activities 1 Patient's Judgement Adequate to Safely Complete Daily Activities 1 Dressing Independent Current Home Care Services None Assistive Devices None Transition Needs Home or Post Acute Services In home services Type of Home Care Services Home Health Agency (Comment) Does the patient have the ability to fill and receive their discharge medications? Yes Discharge Plan Discussed The discharge plan was discussed with patient. Discharge Plan Outcome Patient/family outreach representative agrees with the discharge plan Discharge Barriers Test(s) Pending;Activity;Medication(s) Type of Assistive Devices Needed for Discharge None Patient Discharge Goal Home;Home Health Care Mandated Reporting Not applicable Introduced to CM and role provided. [facility] know how to take care ostomy already. Long history of GIdisorders and surgery. PLOF independent. Has had home health in the remote past and does not remember what company. [facility] is not specific in which one to refer to. Son will transport home. States ambulated without walker today and does not think he needs one for home use. Has not ever done IV antib iotics to self before but did to family member. Lives in [facility] and will refer to there that is in network with insurance. * Enrique Lopez MD - 04/13/2025 12:05 PM EDT Consults PULMONARY AND CRITICAL CARE Consult Note Date of Service: 04/13/2025 Reason for Consult: For critical care management. Referring: Chantelle HPI: This is a 65 y.o. 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 He has had acosta's in 2012 and reversal and incisional hernia repair in 2013. He has been followed outpatient by Colorectal surgery due to concerns for colovesicular fistula immediately proximal to his anastomosis. He underwent Colonoscopy and CT scan and noted inflamed colovesicular fistula between the descending/sigmoid colon junction and the left urinary bladder with bladder wall thickening. There was also an abdominal midline ventral hernia containing nonobstructed bowel loops. He presented today for elective open lower anterior resection, takedown of colovesicular fistula, possible diverting loop ileostomy, ventral hernia repair and cystoscopy with temporary ureteral stents. He tolerated the procedure well and transferred to ICU for monitoring. Pulmonary has been consulted for ICU management. Daily progress note : 04/10: Patient was seen and examined today. During rounds patient was awake alert oriented time placeand person. Vitals reviewed stable. Labs and images reviewed, white cell count trending down, creatinine within normal. Chest x-ray from yesterday reviewed/interpreted independently showed no acute infiltrate. Discussed with the primary team at the bedside, and will transfer patient out of the ICU. 04/11: Patient was seen and examined today. During rounds patient was awake, alert, oriented. Overallpatient looks ill, with high risk for decline. Vitals reviewed, currently patient on 2 L oxygen, satting 98%, mild tachypnea and tachycardia noted. Labs reviewed, white cell count trending down, creatinine within normal. CT abdomen was done showed minimal free fluid and free air consistent with recent operative intervention, perinephric stranding is nonspecific but pyonephritis cannot be excluded, loculated fluid collection in the left inguinal canal could represent an abscess. Spoke with the general surgeon on the phone, and the plan to possible take patient to the OR today dueto purulent material drainage . 04/12: Patient was seen and examined today. During rounds patient was awake, alert, oriented. Overallpatient is critically ill, but with some improvement today compared to before. Vitals reviewed, blood pressure low normal, mild tachycardia noted. Labs reviewed, white cell count trending down, creatinine within normal. Lactic acid pending. Chest x-ray from yesterday reviewed/interpreted independently, showed no acute infiltrate. 04/13: Patient was seen and examined today. During rounds patient was awake, alert, oriented, stated that overall feels better. Vitals reviewed, currently patient still with low normal blood pressure. On LR at 75 cc/h. Mild tachypnea, intermittent tachycardia noted. Labs reviewed, white cell count trending down, creatinine within normal. Overall patient continues to improve but still at high risk for decline, will continue to monitor in the ICU. PAST MEDICAL HISTORY: Past Medical History: Diagnosis Date Anxiety CAD (coronary artery disease) Colovesical fistula Depression Diabetes (HCC) High blood pressure High cholesterol Hypertension Kawasaki disease (HCC) Vitamin D deficiency PAST SURGICAL HISTORY: Past Surgical History: Procedure Laterality Date COLON SURGERY patient stated he had colon surgery (colostomy with reversal) CORONARY ANGIOPLASTY WITH STENT PLACEMENT CORONARY ARTERY BYPASS GRAFT CYSTOSCOPY,INSERTION URETERAL STENTS Bilateral 04/09/2025 Procedure: CYSTOSCOPY, WITH URETERAL STENT INSERTION; Surgeon: Rebekah Lockhart MD; Location: [facility]; Service: General Surgery; Laterality: Bilateral; HAND SURGERY Bilateral HERNIA REPAIR LAPAROSCOPY,LOW ANTERIOR RESECTION N/A 04/09/2025 Procedure: (OPEN LOW ANTERIOR RESECTION WITH TAKEDOWN OF COLOVESICAL FISTULA DIVERTING LOOP ILEOSTOMY VENTRAL HERNIA REPAIR AND CYSTOSCOPY AND STENTS) EXPLANTS OF MESH, REDO LAR,EX LAP LYSIS OF ADHESIONS; Surgeon: Rebekah Lockhart MD; Location: [facility]; Service: General Surgery; Laterality: N/A; Past Surgical History: Procedure Laterality Date COLON SURGERY patient stated he had colon surgery (colostomy with reversal) CORONARY ANGIOPLASTY WITH STENT PLACEMENT CORONARY ARTERY BYPASS GRAFT CYSTOSCOPY,INSERTION URETERAL STENTS Bilateral 04/09/2025 Procedure: CYSTOSCOPY, WITH URETERAL STENT INSERTION; Surgeon: Rebekah Lockhart MD; Location: [facility]; Service: General Surgery; Laterality: Bilateral; HAND SURGERY Bilateral HERNIA REPAIR LAPAROSCOPY,LOW ANTERIOR RESECTION N/A 04/09/2025 Procedure: (OPEN LOW ANTERIOR RESECTION WITH TAKEDOWN OF COLOVESICAL FISTULA DIVERTING LOOP ILEOSTOMY VENTRAL HERNIA REPAIR AND CYSTOSCOPY AND STENTS) EXPLANTS OF MESH, REDO LAR,EX LAP LYSIS OF ADHESIONS; Surgeon: Rebekah Lockhart MD; Location: [facility]; Service: General Surgery; Laterality: N/A; Allergies: No Known Allergies SOCIAL HISTORY: Social History Tobacco Use Smoking status: Every Day Types: Cigarettes Smokeless tobacco: Never Substance Use Topics Alcohol use: Never Drug use: Yes Types: Marijuana Comment: weekly FAMILY HISTORY: family history is not on file. Review of Systems Constitutional: Positive for malaise/fatigue. HENT: Negative. Eyes: Negative. Respiratory: Negative. Cardiovascular: Negative. Gastrointestinal: Positive for abdominal pain. Genitourinary: Negative. Musculoskeletal: Negative. Skin: Negative. Neurological: Positive for weakness. Psychiatric/Behavioral: The patient is nervous/anxious. Vital Signs Temp: [98 ??F (36.7 ??C)-98.9 ??F (37.2 ??C)] 98.2 ??F (36.8 ??C) Pulse: [72-104] 83 Resp: [16-49] 32 BP: (71-132)/(49-81) 76/58 Current: Temp: 98.2 ??F (36.8 ??C) Pulse: 83 Resp: (!) 32 BP: (!) 76/58 SpO2: 95 % 24 Hour: BP Min: 71/49 Max: 132/81 Temp Min: 98 ??F (36.7 ??C) Max: 98.9 ??F (37.2 ??C) Pulse Min: 72 Max: 104 Resp Min: 16 Max: 49 SpO2 Min: 87 % Max: 96 % Intake/Output: I/O last 3 completed shifts: In: 5121.3 [I.V.:3021.3; IV Piggyback:2100] Out: 3733 [Urine:1858; Drains:450; Stool:1425] Physical Exam Vitals reviewed. Constitutional: Appearance: He is ill-appearing. HENT: Head: Normocephalic and atraumatic. Mouth/Throat: Mouth: Mucous membranes are dry. Eyes: Pupils: Pupils are equal, round, and reactive to light. Cardiovascular: Rate and Rhythm: Normal rate and regular rhythm. Abdominal: General: Bowel sounds are normal. There is distension. Palpations: Abdomen is soft. Tenderness: There is abdominal tenderness. Comments: Midline abdominal incision with dressing, left-sided WOLF drain with purulent discharge, right-sided ostomy. Abdomen is less distended today. Left groin drainage in place Musculoskeletal: General: No deformity. Skin: General: Skin is warm and dry. Capillary Refill: Capillary refill takes less than 2 seconds. Neurological: Mental Status: He is alert and oriented to person, place, and time. Psychiatric: Mood and Affect: Mood normal. Intake/Output: I/O last 3 completed shifts: In: 5121.3 [I.V.:3021.3; IV Piggyback:2100] Out: 3733 [Urine:1858; Drains:450; Stool:1425] LABS Results for orders placed or performed during the hospital encounter of 04/09/25 (from the past 24 hours) Lactic Acid with reflex (SJ) Status: Normal Collection Time: 04/12/25 3:50 PM Result Value Ref Range Lactic Acid Level (mmol/L) 0.9 0.5 - 2.2 mmol/L Glucose, Nova Meter Status: Abnormal Collection Time: 04/12/25 4:49 PM Result Value Ref Range POC-GLUCOSE 138 (H) 70 - 110 mg/dL Generation Technician [id number] Glucose, Nova Meter Status: Abnormal Collection Time: 04/12/25 9:48 PM Result Value Ref Range POC-GLUCOSE 115 (H) 70 - 110 mg/dL Generation Technician [id number] CBC - Hemogram (SJ-BKR) Status: Abnormal Collection Time: 04/13/25 7:08 AM Result Value Ref Range WBC 11.1 (H) 4.2 - 9.1 K/??L RBC 3.24 (L) 4.63 - 6.08 M/??L Hemoglobin 9.2 (L) 13.7 - 17.5 GM/DL Hematocrit 27.6 (L) 40.1 - 51.0 % MCV 85 79 - 92 fL MCH 28.4 25.7 - 32.2 pg MCHC 33.3 32.3 - 36.5 GM/DL RDW 14.5 (H) 11.6 - 14.4 % Platelets 241 140 - 375 K/CU MM MPV 9.1 (L) 9.4 - 12.4 fL Basic Metabolic Panel Status: Abnormal Collection Time: 04/13/25 7:08 AM Result Value Ref Range Sodium 139 136 - 145 meq/L Potassium 3.4 3.4 - 5.1 meq/L CO2 18 (L) 22 - 29 meq/L Chloride 111 98 - 112 meq/L Glucose 116 (H) 82 - 115 mg/dL BUN 8.5 8.4 - 25.7 mg/dL Creatinine 0.74 0.72 - 1.25 mg/dL BUN/Creatinine 11 8 - 20 Calcium 8.1 (L) 8.4 - 10.2 mg/dL Anion Gap 13 (H) 4 - 12 eGFR (mL/min/1.73m2) 100 >=60 mL/min/1.73m2 Osmolality Calc 277.0 mOsm/kg Glucose, Nova Meter Status: Abnormal Collection Time: 04/13/25 11:14 AM Result Value Ref Range POC-GLUCOSE 175 (H) 70 - 110 mg/dL Generation Technician [id number] No results found for: PT , INR , PTT CHEM7: Sodium Date Value Ref Range Status 04/13/2025 139 136 - 145 meq/L Final Potassium Date Value Ref Range Status 04/13/2025 3.4 3.4 - 5.1 meq/L Final Chloride Date Value Ref Range Status 04/13/2025 111 98 - 112 meq/L Final CO2 Date Value Ref Range Status 04/13/2025 18 (L) 22 - 29 meq/L Final BUN Date Value Ref Range Status 04/13/2025 8.5 8.4 - 25.7 mg/dL Final Creatinine Date Value Ref Range Status 04/13/2025 0.74 0.72 - 1.25 mg/dL Final eGFR (mL/min/1.73m2) Date Value Ref Range Status 04/13/2025 100 >=60 mL/min/1.73m2 Final Calcium Date Value Ref Range Status 04/13/2025 8.1 (L) 8.4 - 10.2 mg/dL Final Lab Results Component Value Date AST 10 (L) 04/12/2025 ALT <7 04/12/2025 No results for input(s): POCGLU in the last 72 hours. No results for input(s): POCPH , POCPCO2 , POCPO2 , POCABG in the last 72 hours. Invalid input(s): POCSAT , POCART , ARTPOC Microbiology: Microbiology Results (last 7 days) Procedure Component Value Units Date/Time Body Fluid Culture + Gram Stain [[id number]] Collected: 04/11/251625 Order Status: Completed Specimen: Body Fluid from Retroperitoneum Updated: 04/13/25 1201 Result Culture in progress Gram Stain Result Moderate gram positive cocci in pairs Many WBCs Anaerobic Culture [[id number]] Collected: 04/11/251625 Order Status: Completed Specimen: Body Fluid from Retroperitoneum Updated: 04/13/25 0745 Result Culture in progress AFB Culture And Stain [[id number]] Collected: 08/06/25 1626 Order Status: Completed Specimen: Body Fluid from Retroperitoneum Updated: 04/12/25 1419 AFB Smear No acid fast bacilli seen MRSA Screen [[id number]] (Normal) Collected: 04/11/25 1649 Order Status: Completed Specimen: Nasal from Nares Updated: 04/11/25 1922 MRSA by PCR [facility] MRSA Not Detected by PCR Radiology Results (last day) No results found for the last 24 hours. No valid procedures specified. ASSESSMENT: Pulmonary On Room Air Tobacco Abuse Marijuana Abuse Neurology: Anxiety/Depression Marijuana Abuse Cardiology: Hypotension post procedure; mild; received Albumin and IVF H/O CAD/CABG and Cardiac stents, HTN/HLD Infectious disease: Sepsis. Abdominal infection. 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 Endocrine: DM Hematology: Stable H/H/platelets PLAN: Supplemental O2 prn for O2 sats < 92%, currently patient on 2 L oxygen, patient overall still looks ill with high risk further decline, patient overall shows some improvement today with this tachycardia, overall feeling better, vitals with less tachycardia compared to before, but overall patientstill at high risk for further decline, will continue to monitor in the ICU CT abdomen was done showed minimal free fluid and free air consistent with recent operative intervention, perinephric stranding is nonspecific but pyonephritis cannot be excluded, loculated fluid collection in the left inguinal canal could represent an abscess. On 04/11 spoke with the general surgeon on the phone, and the plan to possible take patient to the OR today due to purulent material drainage. On further evaluation, saw the patient, and at this point, patient seems to have an infected left groin mesh from previous hernia repair with purulent material drainage into the peritoneal cavity and extraperitoneal abscess in the left groin, plan at this point to proceed with percutaneous drainage of the left groin and placement ofa drain and this would allow for irrigation of the infected mesh and drainage of purulence and if this fails to try of the intraperitoneal purulence and patient will likely need exploratory laparotomy with washout with possible explant of the left groin mesh. Chest x-ray was done, reviewed,/interpreted independently, no acute infiltrate Duonebs prn Encourage IS/FVD Hemodynamic support MAP > 65 mmgh, currently low normal, on LR at 75 cc/h, if needed will start patient on Levophed and vasopressin. S/P Albumin IVF LR @ 75ml/hr Antibx Flagyl and ceftriaxone per ID. Cultures pending. ID following Nutrition: Defer to surgery. NG tube in place PT/OT Protonix/Lovenox Prognosis: Guarded. High risk further decline. Case discussed with the multidisciplinary team including nurse practitioner, nurse, RT, airplane pilot supervisor, pharmacist, and case management during multidisciplinary round. I Dr.Al Carter, have personally evaluated the patient and performed a [id number] diagnostic evaluation on this patient; I have Obtained history, performed physical examination, reviewed laboratory studies. I have independently interpreted chest images. I have actively directed the medical care, formulated diagnosis, and the plan of care. Patient requires a high complexity of decision making for assessment. 33 minutes critical care time was spent. Voice certified professional coder technology (N[employer]artner) is used for dictation of this note and sound-alike words might be erroneously placed despite reviewing the note for accuracy. Errors in dictation may reflect use of voice recognition software and not all errors in certified professional coder may have been detected prior to signing. * Sara Moeller MS, RD, LD - 04/13/2025 11:[address] ADIME NUTRITION ASSESSMENT ADIME Nutrition Assessment The patient is a 65 y.o. male presenting for recurrent complicated diverticulitis with colovesicular fistula for surgery procedure. Present on Admission: Diverticulitis of colon with perforation (Admitting Diagnoses) Nutrition Evaluation Type: Follow Up Reason for Evaluation: MST=5 (>/=34# wt loss, decreased appetite) Subjective Comments: 04/13: High f/up. Pt remains in CTVU. Pt tolerated clears and was hungry. Diet advanced to fiber restricted this morning per Surgery. Glucerna TID is ordered- will continue. 04/10: POD#1 s/p open redo low anterior resection with takedown of colovesical fistula, diverting loop ileostomy, ventral hernia repair, explant of abd wall mesh, and lysis of adhesions per Surgery. Discussed during MDR. Currently NPO with NGT to LIS. Noted 7% wt loss in the past 14 months per EMR (insignificant). Attempted to speak with pt however sleeping soundly, will reassess for PCM as able. Past Medical/Surgical History: Past Medical History: Diagnosis Date Anxiety CAD (coronary artery disease) Colovesical fistula Depression Diabetes (HCC) High blood pressure High cholesterol Hypertension Kawasaki disease (HCC) Vitamin D deficiency Past Surgical History: Procedure Laterality Date COLON SURGERY patient stated he had colon surgery (colostomy with reversal) CORONARY ANGIOPLASTY WITH STENT PLACEMENT CORONARY ARTERY BYPASS GRAFT CYSTOSCOPY,INSERTION URETERAL STENTS Bilateral 04/09/2025 Procedure: CYSTOSCOPY, WITH URETERAL STENT INSERTION; Surgeon: Rebekah Lockhart MD; Location: [facility]; Service: General Surgery; Laterality: Bilateral; HAND SURGERY Bilateral HERNIA REPAIR LAPAROSCOPY,LOW ANTERIOR RESECTION N/A 04/09/2025 Procedure: (OPEN LOW ANTERIOR RESECTION WITH TAKEDOWN OF COLOVESICAL FISTULA DIVERTING LOOP ILEOSTOMY VENTRAL HERNIA REPAIR AND CYSTOSCOPY AND STENTS) EXPLANTS OF MESH, REDO LAR,EX LAP LYSIS OF ADHESIONS; Surgeon: Rebekah Lockhart MD; Location: [facility]; Service: General Surgery; Laterality: N/A; Vitals and Basic Assessment: Vitals: Vitals: 04/13/25 1003 BP: 94/54 Pulse: 99 Resp: 27 Temp: SpO2: 93% Oxygen:O2 Flow Rate (L/min): 2 L/min Bruce Scale: Bruce Scale Score: 18 Last BM: Last BM Date: (iliostemy) (250ml) GI Symptoms: rounded/taut abd, active BS Edema: Edema: Generalized Skin: no breakdown noted Allergies: No Known Allergies Scheduled Medications: Current Facility-Administered Medications Medication Dose Route Frequency Provider Last Rate Last Admin atorvastatin (LIPITOR) tablet 40 mg 40 mg oral Every Night Ismaeel Mercedes, DO 40 mg at 04/12/252044 cefTRIAXone (ROCEPHIN) 2 g in sodium chloride 0.9 % (NS) 50 mL SHANELLE IVPB 2 g intravenous Q24H MD Pietro IVPB Stopped at 04/13/25 0932 dextrose 50% (D50W) injection 25 g 25 g intravenous Q15 Min PRN Ismaeel Mercedes, DO diazePAM (VALIUM) injection 2.5 mg 2.5 mg intravenous Q6H PRN Rebekah Lockhart MD 2.5 mg at 04/10/25 1518 enoxaparin (LOVENOX) syringe 40 mg 40 mg subcutaneous Q24H Rebekah Lockhart MD 40 mg at 04/12/25 1632 glucagon injection 1 mg 1 mg intraMUSCULAR Q15 Min PRN Ismaeel Mercedes, DO glucose chew tab 16 g 16 g oral Q15 Min PRN Ismaeel Mercedes, DO hydrogen peroxide external solution 3% topical BID Rebekah Lockhart MD Given at 04/13/25 0903 HYDROmorphone (DILAUDID) injection 0.4 mg 0.4 mg intravenous Q4H PRN Kulwinder Donovan MD lactated Ringer's infusion 75 mL/hr intravenous Continuous Rebekah Lockhart MD 75 mL/hr at 04/13/25 1000 75 mL/hr at 04/13/25 1000 [Held by provider] metoprolol succinate (TOPROL-XL) 24 hr tablet 50 mg 50 mg oral Every Night MD Inocencio metroNIDAZOLE (FLAGYL) IVPB 500 mg in sodium chloride 0.9 % 100 mL (premix) 500 mg intravenous Q6H [facility] Rebekah Lockhart MD 100 mL/hr at 04/13/25 1112 500 mg at 04/13/25 1112 morphine injection 4 mg 4 mg intravenous Q4H PRN Rebekah Lockhart MD 4 mg at 04/13/25 0906 nicotine (NICODERM CQ) 21 mg/24 hr patch 1 patch 1 patch transdermal Daily PRN Ismaeel Mercedes, DO ondansetron (ZOFRAN-ODT) disintegrating tablet 4 mg 4 mg oral Q8H PRN Rebekah oLckhart MD Or ondansetron (ZOFRAN) injection 4 mg 4 mg intravenous Q8H PRN Rebekah Lockhart MD oxyCODONE (ROXICODONE) immediate release tablet 5 mg 5 mg oral Q4H PRN Rebekah Lockhart MD 5 mg at08/07/25 1643 pantoprazole (PROTONIX) injection 40 mg 40 mg intravenous Daily Rebekah Lockhart MD 40 mg at 04/13/25 09 QUEtiapine (SEROquel) tablet 200 mg 200 mg oral Every Night Jah Kolbqi, DO 200 mg at 04/12/252044 sodium chloride 0.9% (NS) bolus 1,000 mL intravenous PRN Rebekah Lockhart MD tiZANidine (ZANAFLEX) tablet 4 mg 4 mg oral TID Isevy Kolbqi, DO 4 mg at 04/13/25 09 Drips: LR @ 75ml/hr Recent Labs 04/11/25 0326 04/11/25 0524 04/12/25 0406 04/12/25 0827 04/12/25 2148 04/13/25 0708 04/13/25 1114 NA 136 -- 137 -- -- 139 -- K 4.0 -- 3.9 -- -- 3.4 -- CO2 18* -- 17* -- -- 18* -- BUN 10.7 -- 10.7 -- -- 8.5 -- CREATININE 0.96 -- 0.83 -- -- 0.74 -- GLUCOSE 116* < > 94 < > 115* 116* 175* CALCIUM 8.7 -- 8.3* -- -- 8.1* -- PROT 6.3* -- 6.0* -- -- -- -- ALBUMIN 3.0* -- 2.7* -- -- -- -- BILITOT 0.8 -- 0.5 -- -- -- -- ALKPHOS 56 -- 52 -- -- -- -- AST 14 -- 10* -- -- -- -- ALT <7 -- <7 -- -- -- -- HGB 9.8* -- 9.2* -- -- 9.2* -- HCT 30.2* -- 28.9* -- -- 27.6* -- < > = values in this interval not displayed. Lab Results Component Value Date HGBA1C 6.1 (H) 03/12/2025 Anthropometrics: Ht: Height: 175.3 cm (5' 9.02 ) Wt: Weight: 80.5 kg (177 lb 6.1 oz) (8/) Wt hx: Wt Readings from Last 10 Encounters: 04/09/25 80.5 kg (177 lb 6.1 oz) 03/12/25 79.8 kg (176 lb) 02/07/24 86.2 kg (190 lb) BMI: Body mass index is 26.18 kg/m??. Wt Change: loss % Wt Change: 7% (x14mo) UBW: UTO IBW: 160# Percent IBW: 111% Current Nutrition Intake: Diet Orders: Diet Order(s): Fiber Restricted Diet Supplements: Glucerna TID Intake: good appetite, no meal intakes recorded Enteral Nutrition? no Diet Experience and Nutrition History: Previous Nutrition Education: Unknown Diet Education Provided: no, assess throughout LOS Nutrition Focused Physical Exam: Date performed: defer Physical signs of fat or muscle wasting with severity: -- Energy intake hx: -- Wt loss: -- Assessment of Malnutrition: Unable to complete malnutrition evaluation at this time. Nutrition Diagnoses: Problem #1: Unintended Weight Loss Etiology: inability to meet metabolic demand Signs/Symptoms: >/=34# wt loss per MST Status: New Nutrition Interventions and Recommendations: Collaboration with other providers, General, [employer], and Commercial beverage Nutrition Monitoring and Goals: - Continue fiber restricted diet per surgery (add CCHO prn). Continue Glucerna TID. Goal: >50% of intakes (new goal) - Monitor elytes, recommend replacing prn. Goal: wnls - Obtain wt 2x weekly Goal: avoid involuntary significant wt change - Reassess for PCM as able. Goal: accurate assessment -Monitor BG levels, recommend adjusting insulin prn. Goal: BG 100-180mg/dL Nutrition Risk Level: High Risk Sara Moeller, MS, RD, LD * JESUSITA Gilbert - 04/13/2025 11:28 AM EDT Images from the original note were not included. Inpatient Occupational Therapy Treatment Note Patient Name: Levar Rand Date of : 1960 Date of Treatment: 04/13/25 Start Time: 919 Stop Time: 944 Session Duration: 25 minutes This patient is a 65 y.o. 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 Past Medical History: Diagnosis Date Anxiety CAD (coronary artery disease) Colovesical fistula Depression Diabetes (HCC) High blood pressure High cholesterol Hypertension Kawasaki disease (HCC) Vitamin D deficiency Past Surgical History: Procedure Laterality Date COLON SURGERY patient stated he had colon surgery (colostomy with reversal) CORONARY ANGIOPLASTY WITH STENT PLACEMENT CORONARY ARTERY BYPASS GRAFT CYSTOSCOPY,INSERTION URETERAL STENTS Bilateral 04/09/2025 Procedure: CYSTOSCOPY, WITH URETERAL STENT INSERTION; Surgeon: Rebekah Lockhart MD; Location: [facility]; Service: General Surgery; Laterality: Bilateral; HAND SURGERY Bilateral HERNIA REPAIR LAPAROSCOPY,LOW ANTERIOR RESECTION N/A 04/09/2025 Procedure: (OPEN LOW ANTERIOR RESECTION WITH TAKEDOWN OF COLOVESICAL FISTULA DIVERTING LOOP ILEOSTOMY VENTRAL HERNIA REPAIR AND CYSTOSCOPY AND STENTS) EXPLANTS OF MESH, REDO LAR,EX LAP LYSIS OF ADHESIONS; Surgeon: Rebekah Lockhart MD; Location: [facility]; Service: General Surgery; Laterality: N/A; General Visit type: Treatment Approved by: Nurse Platt Patient disposition upon entry: Patient verified by name, Patient verified by date of , Supinein bed, All needs met and within reach, Call light/pull cord in reach, Head of bed >30 degrees, Nursing aware/notified, Yellow non slip socks donned Co-treated by: PT Precautions Weightbearing status: No restrictions Precautions: Fall risk Isolation precautions: Standard LDA/Brace/Protective equipment: Lines, drains, and airways: SCDs, blood pressure cuff, torres catheter, ostomy, peripheral IV, telemetry Subjective Subjective: Pt agreeable to occupational therapy treatment today. Pain Pt reports 7-8/10 pain level. Nursing reports that pt has received morphine approximately 20 minutes prior to arrival to patient's room. Cognition Cognition: Overall cognitive status: Patient is awake and alert, attending to directions appropriately, demonstrating good problem solving skills, and aware of any deficits or impairments, if present. Orientation level: Oriented x4 Objective Vitals Pre-intervention vitals Heart rate: 104 beats per minute Blood pressure: 100/65 mmHg SpO2: 92% O2: Room Air Post-intervention vitals Heart rate: 103 beats per minute Blood pressure: 118/81 mmHg SpO2: 93% O2 : Room Air Bed Mobility Supine to sit: Supervision Transfers Sit to stand:Supervision Stand to sit:Supervision Functional mobility:Contact guard ADLs Unable to assess as pt instructed on bed mobility, functional mobility, and UE exercises. Balance Static sitting balance:Good: Patient able to maintain balance without handheld support; limited postural sway Dynamic sitting balance:Good: Patient accepts moderate challenge; able to maintain balance while picking object off the floor Static standing balance:Fair: Patient able to maintain balance with handheld support, may require occasional minimal assistance Dynamic standing balance:Fair: Patient accepts minimal challenge; able to maintain balance while turning head/trunk Activity Tolerance Patient limited with activity/intervention due to pain, fatigue, deconditioning, and weakness Therapeutic Exercise Pt reviewed UE exercises for raising arms as high as tolerated including scapular retractions. Pt able to demonstrate back to OT at this time. Pt instructed to perform 2 sets of 10 reps daily to tolerance. Treatment OT arrived to patient's room today with pt presenting supine at bed level. Pt currently reports pain level of 7-8/10 in abdominal region. Nursing reports that pt has received morphine approximately 20 minutes prior to therapy initiation of treatment. Pt is currently agreeable to receipt of occupational/physical therapy co-treatment. Pt currently requires SVN for bed mobility as pt able to transition supine>sit to EOB with minimal facial expression of discomfort. Pt able to maintain sitting balance with good balance noted. Pt demonstrates B UE strength of 4-/5. Pt currently unable to perform management of B socks as OT has recommended long-handle machine former and sock-aide currently. Pt verbalizes agreement to utilize equipment. Pt able to perform sit>stand at walker level with SVN. Pt able to perform functional mobility in room environment and transition completely around nursing station in unit with reported need for standing recovery rest period approximately correction around nursingstation. Pt instructed on performance of breathing strategies while standing at walker level. Pt able to navigate back to room at bedside recliner with needs met. Pt reviewed exercises for utilization of inspirometer including repetitions hourly. Pt required MOD A for correct utilization of sock-aide and long-handle machine former. Assessment Assessment Patient demonstrated improved performance during this treatment session as pt demonstrated increased tolerance for functional mobility at RW level including tolerance of LB clothing management at bedside chair level. Patient continues to present with deficits with activity tolerance in sitting/standing, dynamic/static standing balance, abdominal discomfort, and UE strength. These deficits currently impact the patient's ability to perform ADLs and functional mobility, putting them at an increased risk for increased falls, decreased quality of life, poor outcomes, further functional decline, further decreased strength, increased caregiver burden. Patient will benefit from continued OT services to address the aforementioned functional deficits. Plan Recommendations Discharge recommendations: Patient would benefit from 1-2 hours of multidisciplinary therapy per day upon discharge from acute care setting to assist with returning to prior level of functioning. DME recommendations: Unable to make adaptive/DME recommendations at this time. Treatment Plan: Continue OT POC OT Frequency/Duration: 3x/week for 14 days Goals Bathing:sponge bath seated with modified independence. Lower body dressing: donning and doffing lower body clothing with modified independence. Toileting: toileting with modified independence. Functional transfers: stand pivot transfer with supervision. Target Date: 04/24/2025 Goals were discussed with patient Progress towards goals: progressing Education Patient educated on safety, use of call light, role of occupational therapy, patient's plan of care, functional mobility, adaptive equipment, breathing techniques , energy conservation strategies andfollowing, they were able to verbalize understanding, return demonstration, nod head to understanding. Interdisciplinary Communication Following treatment, therapist communicated with nursing regarding patient's performance during therapy session, patient's level of assistance with transfers for nursing mobility. Patient Disposition Upon Leaving Patient Disposition: Sitting in bedside chair, All needs met and within reach, Call light/pull cordin reach, Nursing aware/notified, Yellow non slip socks donned If this patient discharges prior to next therapy session, this note serves as the patient's discharge summary. Electronically signed by CANDIE Gilbert/David - 04/13/2025 - 11:29 AM EDT * Lizzy Kramer MD - 04/13/2025 11:22 AM EDT Subjective Sitting in a chair better Better today Pain is controlled Last Recorded Vitals Blood pressure 94/54, pulse 99, temperature 98.2 ??F (36.8 ??C), temperature source Oral, resp. rate 27, height 1.753 m (5' 9.02 ), weight 80.5 kg (177 lb 6.1 oz), SpO2 93%. Physical Exam Head atraumatic normocephalic Pupils round and reactive Eyes no conjunctival injection or discharge Ears no discharge Nose no bleeding or discharge Mouth dry Neck supple full range of motion Chest diminished in the bilaterally no wheeze crackle rhonchi Heart S1 and S2 healed regular rate Abdomen diminished bowel sounds Extremities no edema erythema Neurological patient alert awake Psychiatric anxiety Skin no apparent rashes Endocrine no thyromegaly tenderness GEN patient in bed mild distress Labs: Results for orders placed or performed during the hospital encounter of 04/09/25 (from the past 24 hours) Glucose, Nova Meter Status: Abnormal Collection Time: 04/12/25 11:53 AM Result Value Ref Range POC-GLUCOSE 125 (H) 70 - 110 mg/dL Generation Technician [id number] Lactic Acid with reflex (SJ) Status: Normal Collection Time: 04/12/25 3:50 PM Result Value Ref Range Lactic Acid Level (mmol/L) 0.9 0.5 - 2.2 mmol/L Glucose, Nova Meter Status: Abnormal Collection Time: 04/12/25 4:49 PM Result Value Ref Range POC-GLUCOSE 138 (H) 70 - 110 mg/dL Generation Technician [id number] Glucose, Nova Meter Status: Abnormal Collection Time: 04/12/25 9:48 PM Result Value Ref Range POC-GLUCOSE 115 (H) 70 - 110 mg/dL Generation Technician [id number] CBC - Hemogram (SJ-BKR) Status: Abnormal Collection Time: 04/13/25 7:08 AM Result Value Ref Range WBC 11.1 (H) 4.2 - 9.1 K/??L RBC 3.24 (L) 4.63 - 6.08 M/??L Hemoglobin 9.2 (L) 13.7 - 17.5 GM/DL Hematocrit 27.6 (L) 40.1 - 51.0 % MCV 85 79 - 92 fL MCH 28.4 25.7 - 32.2 pg MCHC 33.3 32.3 - 36.5 GM/DL RDW 14.5 (H) 11.6 - 14.4 % Platelets 241 140 - 375 K/CU MM MPV 9.1 (L) 9.4 - 12.4 fL Basic Metabolic Panel Status: Abnormal Collection Time: 04/13/25 7:08 AM Result Value Ref Range Sodium 139 136 - 145 meq/L Potassium 3.4 3.4 - 5.1 meq/L CO2 18 (L) 22 - 29 meq/L Chloride 111 98 - 112 meq/L Glucose 116 (H) 82 - 115 mg/dL BUN 8.5 8.4 - 25.7 mg/dL Creatinine 0.74 0.72 - 1.25 mg/dL BUN/Creatinine 11 8 - 20 Calcium 8.1 (L) 8.4 - 10.2 mg/dL Anion Gap 13 (H) 4 - 12 eGFR (mL/min/1.73m2) 100 >=60 mL/min/1.73m2 Osmolality Calc 277.0 mOsm/kg Glucose, Nova Meter Status: Abnormal Collection Time: 04/13/25 11:14 AM Result Value Ref Range POC-GLUCOSE 175 (H) 70 - 110 mg/dL Generation Technician [id number] CT DRAINAGE PERITONEAL/RETROPERITONEAL W GUIDANCE Narrative: CT GUIDED DRAIN PLACEMENT HISTORY: Left groin abscess. . ATTENDING RADIOLOGIST: Dr. Gaviria. PHYSICIAN DIRECTOR [facility]: Jean Pierre Hughes PA-C. PROCEDURE: After informed consent was obtained and a time-out was performed, the patient was prepped and draped in the usual sterile fashion over the left groin. Utilizing local anesthesia and sterile technique with a catheter access needle, access to the fluid collection was obtained under direct CT guidance. An Amplatz wire was placed. Serial dilatation was performed. A 10 Brazilian pigtail catheter was placed looped in the fluid collection. Post drain placement films demonstrate the catheter in good position. The patient received moderate conscious sedation. The patient tolerated the procedure well and left the department in good condition. CONSCIOUS SEDATION: 1 mg of IV Versed and 75 mcg of Fentanyl were administered. Continuous vital sign monitoring was used. An RN was present during the sedation process. Overall sedation time was 15 minutes. Impression: Status post CT guided percutaneous drain placement without immediate complication. Sample of the fluid was sent to lab for cultures. Images reviewed, interpreted, and dictated by Dr. Roro Gaviria. Transcribed by Jean Pierre Hughes PA-C XR chest AP portable Narrative: PORTABLE CHEST 04/11/2025 11:00 AM HISTORY: Shortness of air COMPARISON: April 09, 2025 FINDINGS: The patient is status post median sternotomy. The heart is stable in size. The lung sanchez demonstrate no significant change. There is no pneumothorax. The support devices are in good position. Impression: There has been no significant interval change. Continued follow up recommended. Images reviewed, interpreted, and dictated by Dr. Roro Gaviria. Transcribed by Giovany Meza PA-C. CT ABDOMEN/PELVIS WITH IV CONTRAST Standard Protocol Narrative: CT SCAN OF THE ABDOMEN AND PELVIS WITH CONTRAST; 04/11/2025 9:34 AM HISTORY: Epigastric pain. COMPARISON: January 2018. PROCEDURE: The patient was injected with IV contrast. Axial images were obtained from the lung bases to the pubic symphysis by computed tomography. This study was performed with techniques to keep radiation doses as low as reasonably achievable, (ALARA). Individualized dose reduction techniques using automated exposure control or adjustment of mA and/or kV according to the patient size were employed. FINDINGS: ABDOMEN: There is marked degenerative disc disease throughout the lumbar spine. There is grade one anterolisthesis at L5-S1 with bilateral L5 pars defects. There is mild bibasilar atelectasis. There is a gallstone in the gallbladder. There is perinephric stranding bilaterally. There are peripelvic cysts bilaterally. There is a simple cyst projecting off the superior aspect of the right kidney. The solid organs are otherwise unremarkable. There is mesh in the anterior abdominal wall. There are skin alexandro in the anterior abdominal wall. There is trace ascites and free intraperitoneal air. There is a right abdominal ostomy. There is a ventral hernia in the anterior left abdomen containing a small amount of fluid and free air. PELVIS: The urinary bladder is decompressed by a Torres. There is flocculent fluid and debris extending into the left inguinal canal, likely representing an abscess. There is stranding in the anterior abdominal wall. Status post sigmoid colon resection. The appendix is not identified. The bowel loops are mildly distended. There is presacral stranding and fluid. There is stranding in the right inguinal canal. A surgical drain is looped in the pelvis. Impression: Minimal free fluid and free air, consistent with recent operative intervention. Perinephric stranding is nonspecific but pyelonephritis is not excluded. Loculated fluid collection in the left inguinal canal could represent an abscess. Images reviewed, interpreted, and dictated by Roro Gaviria MD 04/09/2025 Procedure: OPEN REDO LOW ANTERIOR RESECTION WITH TAKEDOWN OF COLOVESICAL FISTULA DIVERTING LOOP ILEOSTOMY VENTRAL HERNIA REPAIR EXPLANT OF ABDOMINAL WALL MESH LYSIS OF ADHESIONS CYSTOSCOPY WITH URETERAL STENT INSERTION (Urology) Assessment #Colovesicular fistula: #Recurrent diverticulitis #Diabetes: #Hypertension: #Hyperlipidemia: #Tobacco use disorder: 04/13/2025 Plan IV Rocephin/Flagyl Labs In a.m. Infectious disease following NG tube was removed Clear liquid PT OT Patient can be transferred to the floor Discharge Planning: Advance diet encourage activity Patient will need rehab next week * Felicitas Rliey PT - 04/13/2025 9:45 AM EDT Images from the original note were not included. Inpatient Physical Therapy Treatment Patient Name: Levar Rand Date of : 1960 Date of Treatment: 04/13/25 Start Time 919 Stop Time 944 Session Duration 25 minutes General Visit Type: Treatment Approved by: Nurse Loyd Patient Disposition Upon Entry: Patient in bedside chair, Call Light/Pull Cord in reach, All needs met and within reach, Nursing aware/notified, HOB >30 degrees, Side rails up Patient Verified By: Name and Date of Co-treated by: OTEric Precautions Weight-Bearing Status: No Restrictions Precautions: Fall risk Isolation Precautions: Standard Lines, tubes, drains, airway: blood pressure cuff, torres catheter, WOLF drain, peripheral IV, telemetry, accordian drain. Subjective Subjective: Patient agreeable to physical therapy treatment. Pain Yes. 0-10 SCALE Pain location: abdomen 8/10. Pain intervention: Pt reports he had morphine just before PT/OT arrived.. Response to intervention: Gradually improving Cognition Overall cognitive status: Patient is awake and alert, attending to directions appropriately, demonstrating good problem solving skills, and aware of any deficits or impairments, if present. Following commands: Follows all commands and directions without difficulty Safety Judgment: Good awareness of safety precautions Objective Vitals Pre-intervention vitals Heart rate: 104 beats per minute Blood pressure: 100/65 mmHg SpO2: 92% O2: Room air Post-intervention vitals Heart rate: 103 beats per minute Blood pressure: 118/81 mmHg SpO2: 93% O2: room air Functional Mobility Bed Mobility: Rolling Left: supervision, HOB elevated, use of bed features Supine to Sit: supervision, HOB elevated, use of bed features Transfers Sit to Stand: supervision, gait belt used, rolling walker used Stand to Sit: supervision, gait belt used, rolling walker used Gait Gait Assistance: supervision Assistive Device: Gait Belt, Rolling walker Distance: 310' Gait speed: WFL Deviation(s): no deviations noted. Stair Management Patient declined to attempt this date. Wheelchair Mobility Not assessed, patient ambulatory. AM-PAC Basic Mobility Inpatient Short Form How much difficulty does the patient currently have: Turning over in bed (including adjusting bedclothes, sheets, and blankets)? (1) Total/Unable (not able to do the activity or can only perform the activity using assistive devices or requires assistance from another person, including supervision or cueing for safety) Sitting down on and standing up from a chair with arms (e.g., wheelchair, bedside commode, etc.)? (1) Total/Unable (not able to do the activity or can only perform the activity using assistive devices or requires assistance from another person, including supervision or cueing for safety) Moving from lying on back to sitting on side of bed? (1) Total/Unable (not able to do the activity or can only perform the activity using assistive devices or requires assistance from another person,including supervision or cueing for safety) How much help from another person does the patient currently need: Moving to and from a bed to a chair (including a wheelchair)? (3) A little (Minimal/Contact guard/Supervision/Setup) Need to walk in hospital room? (3) A little (Minimal/Contact guard/Supervision/Setup) Climbing 3-5 steps with a railing? (3) A little (Minimal/Contact guard/Supervision/Setup) Score Raw score=12 t-Scale score=35.33 Standard error=3.08 CMS 0-100%=68.66% MDC=4.72 A raw score of >= 16 is significantly associated with increased odds of discharge to home in addition to consideration made for the patient's cognition and social determinants of health. Balance Static/dynamic sitting and static/dynamic standing balance are all WFL. Activity Tolerance Patient tolerated activity/intervention well with no complaints or adverse events. Treatment Pt is eager to get up and amb and then go to the chair. He moved as noted above.He was left in the chair with his feet up. Assessment Patient presenting with generalized weakness with functional activities. Because of this, patient would have difficulty with independently performing ambulating on level surfaces, ambulating on uneven surfaces, ambulating household distances, ambulating community distances, and negotiating stairs. These functional limitations put the patient at an increased risk for loss of independence with functional mobility and activities of daily living. Patient would benefit from skilled physical therapy services during length of stay for balance training to decrease risk of falling, endurance training to improve activity tolerance, stair training, and gait training. Problems: Decreased functional mobility, Decreased gait tolerance, Decreased activity tolerance, Gait impairment Rehab potential: Good for stated goals Plan Treatment plan: Continue per POC. PT Frequency/Duration: 5x/week for 14 days Recommendations Discharge recommendations: Discharge home/prior living situation. Patient would benefit from continued therapy services. DME recommendations: Patient has no DME/adaptive equipment discharge needs at this time. Goals [id number]: By the target date, patient will perform [id number] with modified independence, utilizing bed railing, to improve independence with bed mobility and improve overall comfort and well-being. Luv-au-bhtkv: By the target date, patient will perform sit to stand with modified independence and rolling walker to improve independence with functional mobility, decrease risk of falling, improve ability to participate in activities of daily living that require standing, and return to prior levelof function. Gait: Patient will ambulate 200'' with stand by assistance and utilizing rolling walker in order toincrease independence with ambulation and improve balance with ambulation and decrease risk of falling Stairs: By the target date, patient will negotiate 4 step(s), with a reciprocal pattern, utilizing no assistive device and stand by assistance, to demonstrate ability to safely negotiate stairs at home. Target Date: 04/24/2025 Progress towards goals: progressing Education Patient educated on safety, use of call button, role of physical therapy, and plan of care and following, they were able to verbalize understanding. No further questions or concerns stated. Interdisciplinary Communication Following treatment, therapist communicated with nursing regarding patient's performance during physical therapy session. Patient Disposition Upon Leaving Patient in bedside chair, Call Light/Pull Cord in reach, All needs met and within reach, Nursing aware/notified, Feet elevated If this patient discharges prior to next therapy session, this note serves as the patient's discharge summary. Electronically signed by Felicitas Riley, PT - 04/13/25 - 11:22 AM EDT * Marilia Campos RN - 04/13/2025 8:30 AM EDTSummary: Ostomy Education [facility] RN present for continuing education regarding new ileostomy. Upon arrival patient in bed, eating breakfast and feeling much better. [facility] RN reviewed how to open and close pouch and apply wafer to pouch, patient able to return demonstration. Left extra supplies for patient to practice. No leakageconcerns since changing pouching system yesterday. Reviewed [place] ileostomy folder. Reviewed wear time and pouch emptying at ? to ?? full. Instructed patient to allow nursing staff to assist withhim emptying the pouch for practice. Crusting technique demonstrated in the event of peristomal skin irritation, discussed skin concerns to watch for. Reviewed DME process of ordering supplies. Recomm ended home health upon discharge and patient agreed. A follow-up visit will be provided to change the full system and assess the patient's knowledge through the teach-back method. All current questions were addressed. Please contact the wound/ostomy team for any further ostomy concerns. * Rebekah Lockhart MD - 04/13/2025 7:36 AM EDT Subjective Patient does continue to feel better today. He denies any fevers or chills. He did have some softerblood pressures overnight while he was sleeping but responded on their own did not require the use of any boluses. His ostomy continues to function he had nearly a liter out yesterday. He is hungry. Made 1400 mL of urine overnight. His surgical WOLF drain has scant output. His accordion drain had 450of sanguinous/purulent output. White count has downward trended to 11,000. Hemoglobin remains the same. His Torres catheter remainswith clear urine Review of Systems Objective Last Recorded Vitals Blood pressure 99/67, pulse 90, temperature 98.8 ??F (37.1 ??C), resp. rate 24, height 1.753 m (5' 9.02 ), weight 80.5 kg (177 lb 6.1 oz), SpO2 92%. Physical Exam Abdomen is much softer, less distention. Ileostomy is viable and productive. Again WOLF drain with scant serous output. Percutaneous drain with sanguinous/purulent output. Thin sanguinous. Incision is clean dry and intact. Labs: Results for orders placed or performed during the hospital encounter of 04/09/25 (from the past 24 hours) Glucose, Nova Meter Status: Abnormal Collection Time: 04/12/25 8:27 AM Result Value Ref Range POC-GLUCOSE 133 (H) 70 - 110 mg/dL Generation Technician [id number] Glucose, Nova Meter Status: Abnormal Collection Time: 04/12/25 11:53 AM Result Value Ref Range POC-GLUCOSE 125 (H) 70 - 110 mg/dL Generation Technician [id number] Lactic Acid with reflex (SJ) Status: Normal Collection Time: 04/12/25 3:50 PM Result Value Ref Range Lactic Acid Level (mmol/L) 0.9 0.5 - 2.2 mmol/L Glucose, Nova Meter Status: Abnormal Collection Time: 04/12/25 4:49 PM Result Value Ref Range POC-GLUCOSE 138 (H) 70 - 110 mg/dL Generation Technician [id number] Glucose, Nova Meter Status: Abnormal Collection Time: 04/12/25 9:48 PM Result Value Ref Range POC-GLUCOSE 115 (H) 70 - 110 mg/dL Generation Technician [id number] CBC - Hemogram (SJ-BKR) Status: Abnormal Collection Time: 04/13/25 7:08 AM Result Value Ref Range WBC 11.1 (H) 4.2 - 9.1 K/??L RBC 3.24 (L) 4.63 - 6.08 M/??L Hemoglobin 9.2 (L) 13.7 - 17.5 GM/DL Hematocrit 27.6 (L) 40.1 - 51.0 % MCV 85 79 - 92 fL MCH 28.4 25.7 - 32.2 pg MCHC 33.3 32.3 - 36.5 GM/DL RDW 14.5 (H) 11.6 - 14.4 % Platelets 241 140 - 375 K/CU MM MPV 9.1 (L) 9.4 - 12.[address] DRAINAGE PERITONEAL/RETROPERITONEAL W GUIDANCE Narrative: CT GUIDED DRAIN PLACEMENT HISTORY: Left groin abscess. . ATTENDING RADIOLOGIST: Dr. Gaviria. PHYSICIAN DIRECTOR [facility]: Jean Pierre Hughes PA-C. PROCEDURE: After informed consent was obtained and a time-out was performed, the patient was prepped and draped in the usual sterile fashion over the left groin. Utilizing local anesthesia and sterile technique with a catheter access needle, access to the fluid collection was obtained under direct CT guidance. An Amplatz wire was placed. Serial dilatation was performed. A 10 Brazilian pigtail catheter was placed looped in the fluid collection. Post drain placement films demonstrate the catheter in good position. The patient received moderate conscious sedation. The patient tolerated the procedure well and left the department in good condition. CONSCIOUS SEDATION: 1 mg of IV Versed and 75 mcg of Fentanyl were administered. Continuous vital sign monitoring was used. An RN was present during the sedation process. Overall sedation time was 15 minutes. Impression: Status post CT guided percutaneous drain placement without immediate complication. Sample of the fluid was sent to lab for cultures. Images reviewed, interpreted, and dictated by Dr. Roro Gaviria. Transcribed by Jean Pierre Hughes PA-C XR chest AP portable Narrative: PORTABLE CHEST 04/11/2025 11:00 AM HISTORY: Shortness of air COMPARISON: April 09, 2025 FINDINGS: The patient is status post median sternotomy. The heart is stable in size. The lung sanchez demonstrate no significant change. There is no pneumothorax. The support devices are in good position. Impression: There has been no significant interval change. Continued follow up recommended. Images reviewed, interpreted, and dictated by Dr. Roro Gaviria. Transcribed by Giovany Meza PA-C. CT ABDOMEN/PELVIS WITH IV CONTRAST Standard Protocol Narrative: CT SCAN OF THE ABDOMEN AND PELVIS WITH CONTRAST; 04/11/2025 9:34 AM HISTORY: Epigastric pain. COMPARISON: January 2018. PROCEDURE: The patient was injected with IV contrast. Axial images were obtained from the lung bases to the pubic symphysis by computed tomography. This study was performed with techniques to keep radiation doses as low as reasonably achievable, (ALARA). Individualized dose reduction techniques using automated exposure control or adjustment of mA and/or kV according to the patient size were employed. FINDINGS: ABDOMEN: There is marked degenerative disc disease throughout the lumbar spine. There is grade one anterolisthesis at L5-S1 with bilateral L5 pars defects. There is mild bibasilar atelectasis. There is a gallstone in the gallbladder. There is perinephric stranding bilaterally. There are peripelvic cysts bilaterally. There is a simple cyst projecting off the superior aspect of the right kidney. The solid organs are otherwise unremarkable. There is mesh in the anterior abdominal wall. There are skin alexandro in the anterior abdominal wall. There is trace ascites and free intraperitoneal air. There is a right abdominal ostomy. There is a ventral hernia in the anterior left abdomen containing a small amount of fluid and free air. PELVIS: The urinary bladder is decompressed by a Torres. There is flocculent fluid and debris extending into the left inguinal canal, likely representing an abscess. There is stranding in the anterior abdominal wall. Status post sigmoid colon resection. The appendix is not identified. The bowel loops are mildly distended. There is presacral stranding and fluid. There is stranding in the right inguinal canal. A surgical drain is looped in the pelvis. Impression: Minimal free fluid and free air, consistent with recent operative intervention. Perinephric stranding is nonspecific but pyelonephritis is not excluded. Loculated fluid collection in the left inguinal canal could represent an abscess. Images reviewed, interpreted, and dictated by Roro Gaviria MD Assessment This is a 65-year-old male with significant past medical history and past surgical history. As we have gone along with his care I have learned more about him (as he remembers more). He has a chronically infected left groin mesh which was unknonw to me or to him. He is now postop day 4from redo low anterior resection and takedown of what is presumed a diverticular colovesicular fistula which actually ended up being a colovesicular/left groin abscess fistula with diverting loop ileostomy and incisional hernia repair. As we disconnected his colon from the left groin abscesses have allowed purulent material to spill into the peritoneal cavity creating significant postoperative pain as well as abnormal findings. He is now status post percutaneous drain of the left groin. ----- I think he has made considerable improvement after his drain placement on Wednesday. He is no longer having low-grade fevers. His abdomen is softer. He is in less pain. He is hungry and having ostomyoutput. His surgical drain has turned back to serous Still some intermittent lower blood pressures particularly while sleeping. Has not moved a lot yet. 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 Hopefully after has been drained for some time we we will have a safer outcome in the future * Suri Alcaraz RN - 04/12/2025 7:40 PM EDT Sepsis Zone Tool provided to patient and/or family at bedside using the Explanation, Verbalizes Understanding and Needs Reinforcement. * Enrique Lopez MD - 04/12/2025 2:42 PM EDT Consults PULMONARY AND CRITICAL CARE Consult Note Date of Service: 04/12/2025 Reason for Consult: For critical care management. Referring: Chantelle HPI: This is a 65 y.o. 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 He has had acosta's in 2012 and reversal and incisional hernia repair in 2013. He has been followed outpatient by Colorectal surgery due to concerns for colovesicular fistula immediately proximal to his anastomosis. He underwent Colonoscopy and CT scan and noted inflamed colovesicular fistula between the descending/sigmoid colon junction and the left urinary bladder with bladder wall thickening. There wasalso an abdominal midline ventral hernia containing nonobstructed bowel loops. He presented today for elective open lower anterior resection, takedown of colovesicular fistula, possible diverting loop ileostomy, ventral hernia repair and cystoscopy with temporary ureteral stents. He tolerated the procedure well and transferred to ICU for monitoring. Pulmonary has been consulted for ICU management. Daily progress note : 04/10: Patient was seen and examined today. During rounds patient was awake alert oriented time placeand person. Vitals reviewed stable. Labs and images reviewed, white cell count trending down, creatinine within normal. Chest x-ray from yesterday reviewed/interpreted independently showed no acute infiltrate. Discussed with the primary team at the bedside, and will transfer patient out of the ICU. 04/11: Patient was seen and examined today. During rounds patient was awake, alert, oriented. Overallpatient looks ill, with high risk for decline. Vitals reviewed, currently patient on 2 L oxygen, satting 98%, mild tachypnea and tachycardia noted. Labs reviewed, white cell count trending down, creatinine within normal. CT abdomen was done showed minimal free fluid and free air consistent with recent operative intervention, perinephric stranding is nonspecific but pyonephritis cannot be excluded, loculated fluid collection in the left inguinal canal could represent an abscess. Spoke with the general surgeon on the phone, and the plan to possible take patient to the OR today dueto purulent material drainage . 04/12: Patient was seen and examined today. During rounds patient was awake, alert, oriented. Overallpatient is critically ill, but with some improvement today compared to before. Vitals reviewed, blood pressure low normal, mild tachycardia noted. Labs reviewed, white cell count trending down, creatinine within normal. Lactic acid pending. Chest x-ray from yesterday reviewed/interpreted independently, showed no acute infiltrate. PAST MEDICAL HISTORY: Past Medical History: Diagnosis Date Anxiety CAD (coronary artery disease) Colovesical fistula Depression Diabetes (HCC) High blood pressure High cholesterol Hypertension Kawasaki disease (HCC) Vitamin D deficiency PAST SURGICAL HISTORY: Past Surgical History: Procedure Laterality Date COLON SURGERY patient stated he had colon surgery (colostomy with reversal) CORONARY ANGIOPLASTY WITH STENT PLACEMENT CORONARY ARTERY BYPASS GRAFT CYSTOSCOPY,INSERTION URETERAL STENTS Bilateral 04/09/2025 Procedure: CYSTOSCOPY, WITH URETERAL STENT INSERTION; Surgeon: Rebekah Lockhart MD; Location: [facility]; Service: General Surgery; Laterality: Bilateral; HAND SURGERY Bilateral HERNIA REPAIR LAPAROSCOPY,LOW ANTERIOR RESECTION N/A 04/09/2025 Procedure: (OPEN LOW ANTERIOR RESECTION WITH TAKEDOWN OF COLOVESICAL FISTULA DIVERTING LOOP ILEOSTOMY VENTRAL HERNIA REPAIR AND CYSTOSCOPY AND STENTS) EXPLANTS OF MESH, REDO LAR,EX LAP LYSIS OF ADHESIONS; Surgeon: Rebekah Lockhart MD; Location: [facility]; Service: General Surgery; Laterality: N/A; Past Surgical History: Procedure Laterality Date COLON SURGERY patient stated he had colon surgery (colostomy with reversal) CORONARY ANGIOPLASTY WITH STENT PLACEMENT CORONARY ARTERY BYPASS GRAFT CYSTOSCOPY,INSERTION URETERAL STENTS Bilateral 04/09/2025 Procedure: CYSTOSCOPY, WITH URETERAL STENT INSERTION; Surgeon: Rebekah Lockhart MD; Location: [facility]; Service: General Surgery; Laterality: Bilateral; HAND SURGERY Bilateral HERNIA REPAIR LAPAROSCOPY,LOW ANTERIOR RESECTION N/A 04/09/2025 Procedure: (OPEN LOW ANTERIOR RESECTION WITH TAKEDOWN OF COLOVESICAL FISTULA DIVERTING LOOP ILEOSTOMY VENTRAL HERNIA REPAIR AND CYSTOSCOPY AND STENTS) EXPLANTS OF MESH, REDO LAR,EX LAP LYSIS OF ADHESIONS; Surgeon: Rebekah Lockhart MD; Location: [facility]; Service: General Surgery; Laterality: N/A; Allergies: No Known Allergies SOCIAL HISTORY: Social History Tobacco Use Smoking status: Every Day Types: Cigarettes Smokeless tobacco: Never Substance Use Topics Alcohol use: Never Drug use: Yes Types: Marijuana Comment: weekly FAMILY HISTORY: family history is not on file. Review of Systems Constitutional: Positive for malaise/fatigue. HENT: Negative. Eyes: Negative. Respiratory: Negative. Cardiovascular: Negative. Gastrointestinal: Positive for abdominal pain. Genitourinary: Negative. Musculoskeletal: Negative. Skin: Negative. Neurological: Positive for weakness. Psychiatric/Behavioral: The patient is nervous/anxious. Vital Signs Temp: [98.5 ??F (36.9 ??C)-99 ??F (37.2 ??C)] 98.7 ??F (37.1 ??C) Pulse: [79-108] 79 Resp: [17-29] 22 BP: (85-129)/(55-82) 85/58 Current: Temp: 98.7 ??F (37.1 ??C) Pulse: 79 Resp: 22 BP: (!) 85/58 SpO2: 100 % 24 Hour: BP Min: 85/58 Max: 129/70 Temp Min: 98.5 ??F (36.9 ??C) Max: 99 ??F (37.2 ??C) Pulse Min: 79 Max: 108 Resp Min: 17 Max: 29 SpO2 Min: 93 % Max: 100 % Intake/Output: I/O last 3 completed shifts: In: 3604 [I.V.:1954; IV Piggyback:0] Out: 4440 [Urine:1625; Emesis/NG output:200; Drains:65; Stool:2550] Physical Exam Vitals reviewed. Constitutional: Appearance: He is ill-appearing. HENT: Head: Normocephalic and atraumatic. Mouth/Throat: Mouth: Mucous membranes are dry. Eyes: Pupils: Pupils are equal, round, and reactive to light. Cardiovascular: Rate and Rhythm: Normal rate and regular rhythm. Abdominal: General: Bowel sounds are normal. There is distension. Palpations: Abdomen is soft. Tenderness: There is abdominal tenderness. Comments: Midline abdominal incision with dressing, left-sided WOLF drain with purulent discharge, right-sided ostomy. Left groin drainage in place Musculoskeletal: General: No deformity. Skin: General: Skin is warm and dry. Capillary Refill: Capillary refill takes less than 2 seconds. Neurological: Mental Status: He is alert and oriented to person, place, and time. Psychiatric: Mood and Affect: Mood normal. Intake/Output: I/O last 3 completed shifts: In: 3604 [I.V.:195; IV Piggyback:1649] Out: 4440 [Urine:1625; Emesis/NG output:200; Drains:65; Stool:2550] LABS Results for orders placed or performed during the hospital encounter of 04/09/25 (from the past 24 hours) Body Fluid Culture + Gram Stain Status: None (Preliminary result) Collection Time: 04/11/25 4:26 PM Specimen: Retroperitoneum; Body Fluid Result Value Ref Range Result No growth Gram Stain Result Moderate gram positive cocci in pairs Gram Stain Result Many WBCs Anaerobic Culture Status: None (Preliminary result) Collection Time: 04/11/25 4:26 PM Specimen: Retroperitoneum; Body Fluid Result Value Ref Range Result Culture in progress AFB Culture And Stain Status: None (Preliminary result) Collection Time: 04/11/25 4:26 PM Specimen: Retroperitoneum; Body Fluid Result Value Ref Range AFB Smear No acid fast bacilli seen MRSA Screen Status: Normal Collection Time: 04/11/25 4:49 PM Specimen: Nares; Nasal Result Value Ref Range MRSA by PCR [facility] MRSA Not Detected by PCR MRSA Not Detected by PCR Glucose, Nova Meter Status: None Collection Time: 04/11/25 6:16 PM Result Value Ref Range POC-GLUCOSE 90 70 - 110 mg/dL Generation Technician [id number] Glucose, Nova Meter Status: None Collection Time: 04/11/25 11:08 PM Result Value Ref Range POC-GLUCOSE 99 70 - 110 mg/dL Generation Technician [id number] CBC w Manual Diff (SJ-BKR) Status: Abnormal Collection Time: 04/12/25 4:06 AM Result Value Ref Range WBC 12.7 (H) 4.2 - 9.1 K/??L RBC 3.31 (L) 4.63 - 6.08 M/??L Hemoglobin 9.2 (L) 13.7 - 17.5 GM/DL Hematocrit 28.9 (L) 40.1 - 51.0 % MCV 87 79 - 92 fL MCH 27.8 25.7 - 32.2 pg MCHC 31.8 (L) 32.3 - 36.5 GM/DL RDW 14.7 (H) 11.6 - 14.4 % Platelets 225 140 - 375 K/CU MM MPV 8.8 (L) 9.4 - 12.4 fL Comprehensive metabolic panel Status: Abnormal Collection Time: 04/12/25 4:06 AM Result Value Ref Range Sodium 137 136 - 145 meq/L Potassium 3.9 3.4 - 5.1 meq/L Chloride 107 98 - 112 meq/L CO2 17 (L) 22 - 29 meq/L Calcium 8.3 (L) 8.4 - 10.2 mg/dL Glucose 94 82 - 115 mg/dL BUN 10.7 8.4 - 25.7 mg/dL Creatinine 0.83 0.72 - 1.25 mg/dL BUN/Creatinine 13 8 - 20 eGFR (mL/min/1.73m2) 97 >=60 mL/min/1.73m2 Albumin 2.7 (L) 3.5 - 5.0 g/dL Alkaline Phosphatase 52 40 - 150 U/L ALT <7 <=45 U/L AST 10 (L) 11 - 34 U/L Total Bilirubin 0.5 0.2 - 1.2 mg/dL Protein, Total 6.0 (L) 6.4 - 8.3 g/dL Globulin 3.3 2.5 - 4.1 g/dL Anion Gap 17 (H) 4 - 12 A/G Ratio 0.8 0.7 - 1.9 Osmolality Calc 272.9 mOsm/kg Manual Differential Status: Abnormal Collection Time: 04/12/25 4:06 AM Result Value Ref Range Total Counted 100 % Neutros (manual) 83 (H) 50 - 65 % % Lymphs (manual) 5 (L) 24 - 44 % % Monos (manual) 10 (H) 4 - 5 % % Baso (manual) 1 0 - 1 % % [place] (manual) 1 0 - 1 % RBC Morphology abnormal (A) Normal Platelet Estimate Adequate Adequate Anisocytosis 1+ Hypochromia 1+ Ovalocytes 1+ ANC# 10.54 K/??L Glucose, Nova Meter Status: Abnormal Collection Time: 04/12/25 8:27 AM Result Value Ref Range POC-GLUCOSE 133 (H) 70 - 110 mg/dL Generation Technician [id number] Glucose, Nova Meter Status: Abnormal Collection Time: 04/12/25 11:53 AM Result Value Ref Range POC-GLUCOSE 125 (H) 70 - 110 mg/dL Generation Technician [id number] No results found for: PT , INR , PTT CHEM7: Sodium Date Value Ref Range Status 04/12/2025 137 136 - 145 meq/L Final Potassium Date Value Ref Range Status 04/12/2025 3.9 3.4 - 5.1 meq/L Final Chloride Date Value Ref Range Status 04/12/2025 107 98 - 112 meq/L Final CO2 Date Value Ref Range Status 04/12/2025 17 (L) 22 - 29 meq/L Final BUN Date Value Ref Range Status 04/12/2025 10.7 8.4 - 25.7 mg/dL Final Creatinine Date Value Ref Range Status 04/12/2025 0.83 0.72 - 1.25 mg/dL Final eGFR (mL/min/1.73m2) Date Value Ref Range Status 04/12/2025 97 >=60 mL/min/1.73m2 Final Calcium Date Value Ref Range Status 04/12/2025 8.3 (L) 8.4 - 10.2 mg/dL Final Lab Results Component Value Date AST 10 (L) 04/12/2025 ALT <7 04/12/2025 No results for input(s): POCGLU in the last 72 hours. No results for input(s): POCPH , POCPCO2 , POCPO2 , POCABG in the last 72 hours. Invalid input(s): POCSAT , POCART , ARTPOC Microbiology: Microbiology Results (last 7 days) Procedure Component Value Units Date/Time AFB Culture And Stain [[id number]] Collected: 04/11/25 162 Order Status: Completed Specimen: Body Fluid from Retroperitoneum Updated: 04/12/25 1419 AFB Smear No acid fast bacilli seen Anaerobic Culture [[id number]] Collected: 04/11/251625 Order Status: Completed Specimen: Body Fluid from Retroperitoneum Updated: 04/12/25 0756 Result Culture in progress Body Fluid Culture + Gram Stain [[id number]] Collected: 04/11/251625 Order Status: Completed Specimen: Body Fluid from Retroperitoneum Updated: 04/12/25 0650 Result No growth Gram Stain Result Moderate gram positive cocci in pairs Many WBCs MRSA Screen [[id number]] (Normal) Collected: 04/11/25 1649 Order Status: Completed Specimen: Nasal from Nares Updated: 04/11/25 1922 MRSA by PCR [facility] MRSA Not Detected by PCR Radiology Results (last day) Procedure Component Value Units Date/Time CT DRAINAGE PERITONEAL/RETROPERITONEAL W GUIDANCE [[id number]] Collected: 04/11/25 1653 Order Status: Completed Updated: 04/11/25 1701 Narrative: CT GUIDED DRAIN PLACEMENT HISTORY: Left groin abscess. . ATTENDING RADIOLOGIST: Dr. Gaviria. PHYSICIAN DIRECTOR [facility]: Jean Pierre Hughes PA-C. PROCEDURE: After informed consent was obtained and a time-out was performed, the patient was prepped and draped in the usual sterile fashion over the left groin. Utilizing local anesthesia and sterile technique with a catheter access needle, access to the fluid collection was obtained under direct CT guidance. An Amplatz wire was placed. Serial dilatation was performed. A 10 Brazilian pigtail catheter was placed looped in the fluid collection. Post drain placement films demonstrate the catheter in good position. The patient received moderate conscious sedation. The patient tolerated the procedure well and left the department in good condition. CONSCIOUS SEDATION: 1 mg of IV Versed and 75 mcg of Fentanyl were administered. Continuous vital sign monitoring was used. An RN was present during the sedation process. Overall sedation time was 15 minutes. Impression: Status post CT guided percutaneous drain placement without immediate complication. Sample of the fluid was sent to lab for cultures. Images reviewed, interpreted, and dictated by Dr. Roro Gaviria. Transcribed by Jean Pierre Hughes PA-C No valid procedures specified. ASSESSMENT: Pulmonary On Room Air Tobacco Abuse Marijuana Abuse Neurology: Anxiety/Depression Marijuana Abuse Cardiology: Hypotension post procedure; mild; received Albumin and IVF H/O CAD/CABG and Cardiac stents, HTN/HLD Infectious disease: Sepsis. Abdominal infection. Nephrology: Stable Bun/Cr S/P Cystoscopy with Bilateral ureteral stents Gastroenterology: Recurrent Complicated Diverticulitis with Colovesicular Fistula H/O of Star's procedure with subsequent reversal and incisional hernia repair in 2019 S/P Open Redo LAR with take down of colovesicular fistula with diverting loop illeostomy as well ascystoscopy and bilateral ureteral stent placement 04/09/25 Post [place], with infected left groin mesh from previous hernia repair with purulent material drainage into the peritoneal cavity and extraperitoneal abscess in the left groin. Endocrine: DM Hematology: Stable H/H/platelets PLAN: Supplemental O2 prn for O2 sats < 92%, currently patient on 2 L oxygen, patient overall still looks ill with high risk further decline, but with some improvement today compared to before. CT abdomen was done showed minimal free fluid and free air consistent with recent operative intervention, perinephric stranding is nonspecific but pyonephritis cannot be excluded, loculated fluid collection in the left inguinal canal could represent an abscess. On 04/11 spoke with the general surgeon on the phone, and the plan to possible take patient to the OR today due to purulent material drainage. On further evaluation, saw the patient, and at this point, patient seems to have an infected left groin mesh from previous hernia repair with purulent material drainage into the peritoneal cavity and extraperitoneal abscess in the left groin, plan at this point to proceed with percutaneous drainage of the left groin and placement ofa drain and this would allow for irrigation of the infected mesh and drainage of purulence and if this fails to try of the intraperitoneal purulence and patient will likely need exploratory laparotomy with washout with possible explant of the left groin mesh. Chest x-ray was done, reviewed,/interpreted independently, no acute infiltrate Duonebs prn Encourage IS/FVD Hemodynamic support MAP > 65 mmgh, currently low normal, on LR at 75 cc/h, if needed will start patient on Levophed and vasopressin. S/P Albumin IVF LR @ 75ml/hr Antibx Flagyl and ceftriaxone per ID. Cultures pending. ID following Nutrition: Defer to surgery. NG tube in place PT/OT Protonix/Lovenox Prognosis: Guarded. High risk further decline. Case discussed with the multidisciplinary team including nurse practitioner, nurse, RT, airplane pilot supervisor, pharmacist, and case management during multidisciplinary round. I Dr.Al Carter, have personally evaluated the patient and performed a glil-ps-qasr diagnostic evaluation on this patient; I have Obtained history, performed physical examination, reviewed laboratory studies. I have independently interpreted chest images. I have actively directed the medical care, formulated diagnosis, and the plan of care. Patient requires a high complexity of decision making for assessment. 31 minutes critical care time was spent. Voice certified professional coder technology (Napartner) is used for dictation of this note and sound-alike words might be erroneously placed despite reviewing the note for accuracy. Errors in dictation may reflect use of voice recognition software and not all errors in certified professional coder may have been detected prior to signing. * Murtaza Amato MD - 04/12/2025 1:29 PM EDT Images from the original note were not included. [facility] INFECTIOUS DISEASE PROGRESS NOTE Levar Palomino Giorgi 1960 [id number] Date of consult: 04/10/2025 Admit date: 04/09/2025 Requesting Provider: @[email or web address]@ Evaluating physician: Murtaza Amato MD Reason for Consultation: Colovesical fistula repair 04/09/2025, groin abscess left I and D 04/11/25 Chief Complaint: Above Subjective History of present illness: Patient is a 65 y.o. Yr old male with a history of diabetes mellitus type 2, essential hypertension, hyperlipidemia, ongoing smoking, perforated diverticulitis with Zina procedure 2011 with reversal 2011, incisional hernia status post ventral hernia repair with Broughton-Pablo 2013, and colovesical fis sandra. Possible need for pacemaker but held off because of fistula. The patient was admitted for an elective repair to [facility] 04/09/2025. He underwent surgery with Dr. Rebekah Lockhart, and Dr. Asim Cancino on 04/09/2025. There was no rebekah abscess or significant purulence noted. Therewas the presence of mesh noted from previous repairs of inguinal and abdominal hernias. Mesh was partially excised. I was consulted on 04/10/2025 for further evaluation and treatment. No reported history of ill contacts, zoonotic exposures, TB, HIV, significant travel, immunocompromised state. 04/11/2025 history reviewed. Slow improvement. No high fever. Status post repair colovesical fistula with mesh resection. Continues on ceftriaxone and metronidazole until 04/19. Occasional abdominal pain. CT scan of the abdomen and pelvis on 04/11 with left inguinal canal fluid which may be abscess. 04/12/2025 history reviewed. Status post aspiration left groin abscess 04/11, status post colovesical fistula repair with mesh 04/09. No high fever. Tolerating ceftriaxone and metronidazole until 04/19. MRSA screen negative, 04/11 culture gram-positive cocci in pairs. Past Medical History: Diagnosis Date Anxiety CAD (coronary artery disease) Colovesical fistula Depression Diabetes (HCC) High blood pressure High cholesterol Hypertension Kawasaki disease (HCC) Vitamin D deficiency Past Surgical History: Procedure Laterality Date COLON SURGERY patient stated he had colon surgery (colostomy with reversal) CORONARY ANGIOPLASTY WITH STENT PLACEMENT CORONARY ARTERY BYPASS GRAFT CYSTOSCOPY,INSERTION URETERAL STENTS Bilateral 04/09/2025 Procedure: CYSTOSCOPY, WITH URETERAL STENT INSERTION; Surgeon: Rebekah Lockhart MD; Location: [facility]; Service: General Surgery; Laterality: Bilateral; HAND SURGERY Bilateral HERNIA REPAIR LAPAROSCOPY,LOW ANTERIOR RESECTION N/A 04/09/2025 Procedure: (OPEN LOW ANTERIOR RESECTION WITH TAKEDOWN OF COLOVESICAL FISTULA DIVERTING LOOP ILEOSTOMY VENTRAL HERNIA REPAIR AND CYSTOSCOPY AND STENTS) EXPLANTS OF MESH, REDO LAR,EX LAP LYSIS OF ADHESIONS; Surgeon: Rebekah Lockhart MD; Location: [facility]; Service: General Surgery; Laterality: N/A; Pediatric History Patient Parents Not on file Other Topics Concern Not on file Social History Narrative Not on file Positive for smoking, no alcohol or drug use family history is not on file. Reviewed and unremarkable No Known Allergies There is no immunization history on file for this patient. Medication: @Scheduled Meds: atorvastatin 40 mg oral Every Night 40 mg at 04/11/252048 cefTRIAXone 2 g intravenous Q24H IVPB Stopped at 04/12/25 0830 enoxaparin 40 mg subcutaneous Q24H 40 mg at 04/11/25 1647 hydrogen peroxide topical BID Given at 04/12/25 08 [Held by provider] metoprolol succinate 50 mg oral Every Night metroNIDAZOLE 500 mg intravenous Q6H AWA 500 mg at 04/12/25 1149 pantoprazole 40 mg intravenous Daily 40 mg at 04/12/25806 QUEtiapine 200 mg oral Every Night 200 mg at 04/11/252048 tiZANidine 4 mg oral TID 4 mg at 04/12/25806 Continuous Infusions: Current Facility-Administered Medications Medication Dose Route Frequency Provider Last Rate Last Admin acetaminophen (TYLENOL) tablet 650 mg 650 mg oral Once PRN KASHIF Prieto atorvastatin (LIPITOR) tablet 40 mg 40 mg oral Every Night Ismaeel Mercedes, DO 40 mg at 04/11/252048 cefTRIAXone (ROCEPHIN) 2 g in sodium chloride 0.9 % (NS) 50 mL SHANELLE IVPB 2 g intravenous Q24H MD Pietro IVPB Stopped at 04/12/2530 dextrose 50% (D50W) injection 25 g 25 g intravenous Q15 Min PRN Ismaeel Mercedes, DO diazePAM (VALIUM) injection 2.5 mg 2.5 mg intravenous Q6H PRN Rebekah Lockhart MD 2.5 mg at 04/10/25 1518 enoxaparin (LOVENOX) syringe 40 mg 40 mg subcutaneous Q24H Rebekah Lockhart MD 40 mg at 04/11/25 1647 glucagon injection 1 mg 1 mg intraMUSCULAR Q15 Min PRN Ismaeel Mercedes, DO glucose chew tab 16 g 16 g oral Q15 Min PRN Ismaeel Mercedes, DO hydrogen peroxide external solution 3% topical BID Rebekah Lockhart MD Given at 04/12/25 0824 HYDROmorphone (DILAUDID) injection 0.2 mg 0.2 mg intravenous Q4H PRN Kulwinder Donovan MD 0.2 mg at 04/12/25 0400 HYDROmorphone (DILAUDID) injection 0.4 mg 0.4 mg intravenous Q4H PRN Kulwinder Donovan MD lactated Ringer's infusion 75 mL/hr intravenous Continuous Rebekah Lockhart MD 75 mL/hr at 04/12/25 0900 75 mL/hr at 04/12/25 0900 [Held by provider] metoprolol succinate (TOPROL-XL) 24 hr tablet 50 mg 50 mg oral Every Night MD Inocencio metroNIDAZOLE (FLAGYL) IVPB 500 mg in sodium chloride 0.9 % 100 mL (premix) 500 mg intravenous Q6H AWA Rebekah Lockhart MD 100 mL/hr at 04/12/25 1149 500 mg at 04/12/25 1149 morphine injection 4 mg 4 mg intravenous Q4H PRN Rebekah Lockhart MD 4 mg at 04/12/25 0132 nicotine (NICODERM CQ) 21 mg/24 hr patch 1 patch 1 patch transdermal Daily PRN Ismaeel Mercedes, DO ondansetron (ZOFRAN-ODT) disintegrating tablet 4 mg 4 mg oral Q8H PRN Rebekah Lockhart MD Or ondansetron (ZOFRAN) injection 4 mg 4 mg intravenous Q8H PRN Rebekah Lockhart MD oxyCODONE (ROXICODONE) immediate release tablet 5 mg 5 mg oral Q4H PRN Rebekah Lockhart MD 5 mg at04/11/25 1819 pantoprazole (PROTONIX) injection 40 mg 40 mg intravenous Daily Rebekah Lockhart MD 40 mg at 04/12/25 0807 QUEtiapine (SEROquel) tablet 200 mg 200 mg oral Every Night Ismaeel Mercedes, DO 200 mg at 04/11/25 2049 tiZANidine (ZANAFLEX) tablet 4 mg 4 mg oral TID Ismaeel Mercedes, DO 4 mg at 04/12/25 0807 PRN Meds:.@[email or web address]@ Please refer to the medical record for a full medication list Review of Systems: Constitutional-- No Fever, chills or sweats. Appetite good, and no malaise. No fatigue. HEENT-- No new vision, hearing or throat complaints. No epistaxis or oral sores. Denies odynophagiaor dysphagia. No odynophagia or dysphagia. No headache, photophobia or neck stiffness. CV-- No chest pain, palpitation or syncope Resp-- No SOB/cough/Hemoptysis GI- No nausea, vomiting, or diarrhea. No hematochezia, melena, or hematemesis. Denies jaundice or chronic liver disease. -- No dysuria, hematuria, or flank pain. Denies hesitancy, urgency. Lymph- no swollen lymph nodes in neck/axilla or groin. Heme- No active bruising or bleeding; no Hx of DVT or PE. MS-- no swelling or pain in the bones or joints of arms/legs. No new back pain. Neuro-- No acute focal weakness or numbness in the arms or legs. No seizures. Skin--No rashes or lesions Physical Exam: Vital Signs Temp: [98.5 ??F (36.9 ??C)-99 ??F (37.2 ??C)] 98.5 ??F (36.9 ??C) Pulse: [85-108] 86 Resp: [17-29] 22 BP: (85-129)/(55-82) 85/58 Blood pressure (!) 85/58, pulse 86, temperature 98.5 ??F (36.9 ??C), resp. rate 22, height 1.753 m (5' 9.02 ), weight 80.5 kg (177 lb 6.1 oz), SpO2 98%. GENERAL: Awake and alert, in minimal distress. Appears older than stated age. Resting in bed. HEENT: Normocephalic, atraumatic. Oropharynx without thrush. Dentition in good repair. No cervical adenopathy. No neck masses. Ears externally normal, Nose externally normal. Trachea midline. EYES: No conjunctival injection. No icterus. EOM full. LYMPHATICS: No lymphadenopathy of the neck or axillary or inguinal regions. HEART: No murmur, gallop, or pericardial friction rub. Reg rate rhythm. LUNGS: Clear to auscultation and percussion. No respiratory distress, no use of accessory muscles. No rales or rhonchi. ABDOMEN: Soft, nontender, nondistended. No appreciable HSM. Bowel sounds normal. SKIN: Warm and dry without cutaneous eruptions. No nodules. Surgical dressings in place abdomen andgroin. PSYCHIATRIC: Mental status lucid. No confusion. EXT: No cellulitic change. Normal ROM. NEURO: Oriented to name, nonfocal Results Review: I reviewed the patient's new clinical results. Recent Labs Lab(s) Units 04/12/25 0406 04/11/25 0326 04/10/25 0322 WBC K/??L 12.7* 14.2* 16.0* HGB GM/DL 9.2* 9.8* 9.3* HCT % 28.9* 30.2* 29.0* PLT K/CU MM 225 215 241 Recent Labs Lab(s) Units 04/12/25 1153 04/12/25 0827 04/12/25 0406 NA meq/L -- -- 137 K meq/L -- -- 3.9 CL meq/L -- -- 107 CO2 meq/L -- -- 17* BUN mg/dL -- -- 10.7 CREATININE mg/dL -- -- 0.83 GLUCOSE mg/dL 125* < > 94 CALCIUM mg/dL -- -- 8.3* < > = values in this interval not displayed. Recent Labs Lab(s) Units 04/12/25 0406 ALKPHOS U/L 52 BILITOT mg/dL 0.5 ALT U/L <7 AST U/L 10* No results for input(s): SEDRATE in the last 168 hours. No results for input(s): CRP in the last 168 hours. No results for input(s): VANCOTROUGH , VANCORANDOM in the last 168 hours. No results for input(s): LACTATE in the last 168 hours. Estimated Creatinine Clearance: 72.7 mL/min (by C-G formula based on SCr of 0.83 mg/dL). @LABRCNTIP (cpk,ast,alt,alkaline phosphatase)@ Microbiology: Microbiology Results (last 7 days) Procedure Component Value Units Date/Time Anaerobic Culture [[id number]] Collected: 04/11/25 1626 Order Status: Completed Specimen: Body Fluid from Retroperitoneum Updated: 04/12/25 0759 Result Culture in progress Body Fluid Culture + Gram Stain [[id number]] Collected: 04/11/25 1626 Order Status: Completed Specimen: Body Fluid from Retroperitoneum Updated: 04/12/25 0650 Result No growth Gram Stain Result Moderate gram positive cocci in pairs Many WBCs MRSA Screen [[id number]] (Normal) Collected: 04/11/25 1649 Order Status: Completed Specimen: Nasal from Nares Updated: 04/11/25 1922 MRSA by PCR [facility] MRSA Not Detected by PCR AFB Culture And Stain [[id number]] Collected: 04/11/25 1626 Order Status: Sent Specimen: Body Fluid from Retroperitoneum Updated: 04/11/25 165 Radiology: Radiology Results (last 3 days) Procedure Component Value Units Date/Time CT DRAINAGE PERITONEAL/RETROPERITONEAL W GUIDANCE [[id number]] Collected: 04/11/25 1653 Order Status: Completed Updated: 04/11/25 170 Narrative: CT GUIDED DRAIN PLACEMENT HISTORY: Left groin abscess. . ATTENDING RADIOLOGIST: Dr. Gaviria. PHYSICIAN DIRECTOR [facility]: Jean Pierre Hughes PA-C. PROCEDURE: After informed consent was obtained and a time-out was performed, the patient was prepped and draped in the usual sterile fashion over the left groin. Utilizing local anesthesia and sterile technique with a catheter access needle, access to the fluid collection was obtained under direct CT guidance. An Amplatz wire was placed. Serial dilatation was performed. A 10 Brazilian pigtail catheter was placed looped in the fluid collection. Post drain placement films demonstrate the catheter in good position. The patient received moderate conscious sedation. The patient tolerated the procedure well and left the department in good condition. CONSCIOUS SEDATION: 1 mg of IV Versed and 75 mcg of Fentanyl were administered. Continuous vital sign monitoring was used. An RN was present during the sedation process. Overall sedation time was 15 minutes. Impression: Status post CT guided percutaneous drain placement without immediate complication. Sample of the fluid was sent to lab for cultures. Images reviewed, interpreted, and dictated by Dr. Roro Gaviria. Transcribed by Jean Pierre Hughes PA-C XR chest AP portable [[id number]] Collected: 04/11/25 1224 Order Status: Completed Updated: 04/11/251228 Narrative: PORTABLE CHEST 04/11/2025 11:00 AM HISTORY: Shortness of air COMPARISON: April 09, 2025 FINDINGS: The patient is status post median sternotomy. The heart is stable in size. The lung sanchez demonstrate no significant change. There is no pneumothorax. The support devices are in good position. Impression: There has been no significant interval change. Continued follow up recommended. Images reviewed, interpreted, and dictated by Dr. Roro Gaviria. Transcribed by Giovany Meza PA-C. CT ABDOMEN/PELVIS WITH IV CONTRAST Standard Protocol [[id number]] Collected: 04/11/25 1000 Order Status: Completed Updated: 04/11/25 1014 Narrative: CT SCAN OF THE ABDOMEN AND PELVIS WITH CONTRAST; 04/11/2025 9:34 AM HISTORY: Epigastric pain. COMPARISON: January 2018. PROCEDURE: The patient was injected with IV contrast. Axial images were obtained from the lung bases to the pubic symphysis by computed tomography. This study was performed with techniques to keep radiation doses as low as reasonably achievable, (ALARA). Individualized dose reduction techniques using automated exposure control or adjustment of mA and/or kV according to the patient size were employed. FINDINGS: ABDOMEN: There is marked degenerative disc disease throughout the lumbar spine. There is grade one anterolisthesis at L5-S1 with bilateral L5 pars defects. There is mild bibasilar atelectasis. There is a gallstone in the gallbladder. There is perinephric stranding bilaterally. There are peripelvic cysts bilaterally. There is a simple cyst projecting off the superior aspect of the right kidney. The solid organs are otherwise unremarkable. There is mesh in the anterior abdominal wall. There are skin alexandro in the anterior abdominal wall. There is trace ascites and free intraperitoneal air. There is a right abdominal ostomy. There is a ventral hernia in the anterior left abdomen containing a small amount of fluid and free air. PELVIS: The urinary bladder is decompressed by a Torres. There is flocculent fluid and debris extending into the left inguinal canal, likely representing an abscess. There is stranding in the anterior abdominal wall. Status post sigmoid colon resection. The appendix is not identified. The bowel loops are mildly distended. There is presacral stranding and fluid. There is stranding in the right inguinal canal. A surgical drain is looped in the pelvis. Impression: Minimal free fluid and free air, consistent with recent operative intervention. Perinephric stranding is nonspecific but pyelonephritis is not excluded. Loculated fluid collection in the left inguinal canal could represent an abscess. Images reviewed, interpreted, and dictated by Roro Gaviria MD XR chest AP portable [[id number]] Collected: 04/10/25 0747 Order Status: Completed Updated: 04/10/25 1016 Narrative: PORTABLE CHEST 04/09/2025 8:38 PM HISTORY: Acute shortness of breath. COMPARISON: March 12, 2025. FINDINGS: The heart is normal in size . The mediastinum is unremarkable . There are mild increased interstitial markings. There is no significant pleural effusion. There is no pneumothorax . Status post median sternotomy. A new nasogastric tube tip terminates in the stomach. The side port terminates at the gastroesophageal junction. Impression: Interval placement of nasogastric tube. Side port terminates at the GE junction. Mild increased interstitial markings may represent mild edema. Images reviewed, interpreted, and dictated by Dr. Jeanie Melton. Transcribed by Jean Pierre Hughes PA-C IMPRESSION: Colovesical fistula repaired 04/09/2025 without obvious abscess but some evidence of inflammation, with partial resection of previous Broughton-Pablo mesh. Fluid in the left inguinal canal postop versus abscess versus other. Seen on CT scan 04/11. Left groin abscess status post aspiration 04/11 with gram-positive in pairs. MRSA screen negative Leukocytosis, neutrophilic related to above issues. Anemia, acute postoperative blood loss and chronic disease. Worse. Diabetes mellitus type 2 with increased risk for infection. Hypocalcemia 8.3. Ongoing smoking. Acute hypoxic respiratory failure, 2 L/min nasal cannula oxygen on 04/11 may be related to atelectasis versus COPD versus other. PLAN: Diagnostically, continue to follow patient's physical exam, CBC, CMP, CRP, radiographs as needed. MRSA screen. CT-guided drainage of left inguinal fluid collection following cultures. Therapeutically, consider ceftriaxone plus metronidazole while in hospital, with probable de-escalation to amoxicillin/clavulanate, with duration of antibiotics until 04/19/2025 for longer. Patient had some evidence of inflammation at the time of surgery but no rebekah abscess. Does also have Broughton-Texmesh in place which was partially resected. Future concerns could include potential infection of Broughton-Pablo mesh which is a difficult clinical problem to remedy and can become a chronic focus of infection. Especially important and lieu of his future considerations for pacemaker. Not clear what optimal duration of antibiotics would be in the setting given the absence of systemic signs of infection or abscess. Then reevaluate. Supportive care. Room air on 04/10. 04/11/2025 2 L/min nasal cannula oxygen. I discussed the patient's findings and my recommendations with the patient and nursing. Thank you for asking me to see Levar Rand. Our group would be pleased to follow this patient over the course of their hospitalization and assist with outpatient antimicrobial therapy, as indicated. Further recommendations depend on the results of the cultures and clinical course. The patient has an increased risk for adverse drug reactions, complications of IV access, readmission. Side effects of medications were discussed. This visit included the following complex service elements: Complex medical decision-making associated with antimicrobial prescribing. In-depth chart review with high level synthesis for complex diagnoses. Managed infection prevention and treatment protocol associated with transitions of care for this complex patient. Counseled patients, family members, and/or caregivers regarding antimicrobial stewardship and resistance for the patient. Murtaza Amato MD 04/12/2025 * Marilia Campos RN - 04/12/2025 10:00 AM EDTSummary: Ostomy Education Images from the original note were not included. 04/12/25 1000 Ostomy (Stool) RLQ No Date First Assessed or Time First Assessed found. Location: RLQ Ostomy Status [place];New;Moist;Functioning Stoma Color Red Peristomal Skin Intact Interventions Change pouch;Cleanse skin;Cleanse stoma [facility] RN present for continuing education regarding new ileostomy. Upon arrival patient resting on Katherine support surface, hypotensive and fatigued. RN at bedside. Due to patients lethargy education will be continued at another time. Patient agreeable to pouch change. Brown effluent noted in pouch. Prior system removed, site cleansed with warm water and patted dry. Harish present in stoma. Stoma measuring ~41mm. Adapt 2 inch slim barrier ring applied to peristomal skin followed by [place] blue flat pouching system. Left patient with extra pouch to practice opening and closing. Will provide a follow-up visit for further education. Please contact wound/ostomy team if unable to maintain seal. Ostomy supplies: [place] blue flat wafer - # [id number] Darlin blue pouch- #[id number] * Lizzy Kramer MD - 04/12/2025 7:28 AM EDT Subjective NG tube was removed Better today Pain is controlled Last Recorded Vitals Blood pressure 91/59, pulse 92, temperature 98.9 ??F (37.2 ??C), temperature source Oral, resp. rate 23, height 1.753 m (5' 9.02 ), weight 80.5 kg (177 lb 6.1 oz), SpO2 99%. Physical Exam Head atraumatic normocephalic Pupils round and reactive Eyes no conjunctival injection or discharge Ears no discharge Nose no bleeding or discharge Mouth dry Neck supple full range of motion Chest diminished in the bilaterally no wheeze crackle rhonchi Heart S1 and S2 healed regular rate Abdomen diminished bowel sounds Extremities no edema erythema Neurological patient alert awake Psychiatric anxiety Skin no apparent rashes Endocrine no thyromegaly tenderness GEN patient in bed mild distress Labs: Results for orders placed or performed during the hospital encounter of 04/09/25 (from the past 24 hours) Glucose, Nova Meter Status: None Collection Time: 04/11/25 12:57 PM Result Value Ref Range POC-GLUCOSE 99 70 - 110 mg/dL Generation Technician [id number] Body Fluid Culture + Gram Stain Status: None (Preliminary result) Collection Time: 04/11/25 4:26 PM Specimen: Retroperitoneum; Body Fluid Result Value Ref Range Result No growth Gram Stain Result Moderate gram positive cocci in pairs Gram Stain Result Many WBCs MRSA Screen Status: Normal Collection Time: 04/11/25 4:49 PM Specimen: Nares; Nasal Result Value Ref Range MRSA by PCR [facility] MRSA Not Detected by PCR MRSA Not Detected by PCR Glucose, Nova Meter Status: None Collection Time: 04/11/25 6:16 PM Result Value Ref Range POC-GLUCOSE 90 70 - 110 mg/dL Generation Technician [id number] Glucose, Nova Meter Status: None Collection Time: 04/11/25 11:08 PM Result Value Ref Range POC-GLUCOSE 99 70 - 110 mg/dL Generation Technician [id number] CBC w Manual Diff (SJ-BKR) Status: Abnormal Collection Time: 04/12/25 4:06 AM Result Value Ref Range WBC 12.7 (H) 4.2 - 9.1 K/??L RBC 3.31 (L) 4.63 - 6.08 M/??L Hemoglobin 9.2 (L) 13.7 - 17.5 GM/DL Hematocrit 28.9 (L) 40.1 - 51.0 % MCV 87 79 - 92 fL MCH 27.8 25.7 - 32.2 pg MCHC 31.8 (L) 32.3 - 36.5 GM/DL RDW 14.7 (H) 11.6 - 14.4 % Platelets 225 140 - 375 K/CU MM MPV 8.8 (L) 9.4 - 12.4 fL Comprehensive metabolic panel Status: Abnormal Collection Time: 04/12/25 4:06 AM Result Value Ref Range Sodium 137 136 - 145 meq/L Potassium 3.9 3.4 - 5.1 meq/L Chloride 107 98 - 112 meq/L CO2 17 (L) 22 - 29 meq/L Calcium 8.3 (L) 8.4 - 10.2 mg/dL Glucose 94 82 - 115 mg/dL BUN 10.7 8.4 - 25.7 mg/dL Creatinine 0.83 0.72 - 1.25 mg/dL BUN/Creatinine 13 8 - 20 eGFR (mL/min/1.73m2) 97 >=60 mL/min/1.73m2 Albumin 2.7 (L) 3.5 - 5.0 g/dL Alkaline Phosphatase 52 40 - 150 U/L ALT <7 <=45 U/L AST 10 (L) 11 - 34 U/L Total Bilirubin 0.5 0.2 - 1.2 mg/dL Protein, Total 6.0 (L) 6.4 - 8.3 g/dL Globulin 3.3 2.5 - 4.1 g/dL Anion Gap 17 (H) 4 - 12 A/G Ratio 0.8 0.7 - 1.9 Osmolality Calc 272.9 mOsm/kg Manual Differential Status: Abnormal Collection Time: 04/12/25 4:06 AM Result Value Ref Range Total Counted 100 % Neutros (manual) 83 (H) 50 - 65 % % Lymphs (manual) 5 (L) 24 - 44 % % Monos (manual) 10 (H) 4 - 5 % % Baso (manual) 1 0 - 1 % % Metamyelo (manual) 1 0 - 1 % RBC Morphology abnormal (A) Normal Platelet Estimate Adequate Adequate Anisocytosis 1+ Hypochromia 1+ Ovalocytes 1+ ANC# 10.54 K/??L CT DRAINAGE PERITONEAL/RETROPERITONEAL W GUIDANCE Narrative: CT GUIDED DRAIN PLACEMENT HISTORY: Left groin abscess. . ATTENDING RADIOLOGIST: Dr. Gaviria. PHYSICIAN DIRECTOR [facility]: Jean Pierre Hughes PA-C. PROCEDURE: After informed consent was obtained and a time-out was performed, the patient was prepped and draped in the usual sterile fashion over the left groin. Utilizing local anesthesia and sterile technique with a catheter access needle, access to the fluid collection was obtained under direct CT guidance. An Amplatz wire was placed. Serial dilatation was performed. A 10 Brazilian pigtail catheter was placed looped in the fluid collection. Post drain placement films demonstrate the catheter in good position. The patient received moderate conscious sedation. The patient tolerated the procedure well and left the department in good condition. CONSCIOUS SEDATION: 1 mg of IV Versed and 75 mcg of Fentanyl were administered. Continuous vital sign monitoring was used. An RN was present during the sedation process. Overall sedation time was 15 minutes. Impression: Status post CT guided percutaneous drain placement without immediate complication. Sample of the fluid was sent to lab for cultures. Images reviewed, interpreted, and dictated by Dr. Roro Gaviria. Transcribed by Jean Pierre Hughes PA-C XR chest AP portable Narrative: PORTABLE CHEST 04/11/2025 11:00 AM HISTORY: Shortness of air COMPARISON: April 09, 2025 FINDINGS: The patient is status post median sternotomy. The heart is stable in size. The lung sanchez demonstrate no significant change. There is no pneumothorax. The support devices are in good position. Impression: There has been no significant interval change. Continued follow up recommended. Images reviewed, interpreted, and dictated by Dr. Roro Gaviria. Transcribed by Giovany Meza PA-C. CT ABDOMEN/PELVIS WITH IV CONTRAST Standard Protocol Narrative: CT SCAN OF THE ABDOMEN AND PELVIS WITH CONTRAST; 04/11/2025 9:34 AM HISTORY: Epigastric pain. COMPARISON: January 2018. PROCEDURE: The patient was injected with IV contrast. Axial images were obtained from the lung bases to the pubic symphysis by computed tomography. This study was performed with techniques to keep radiation doses as low as reasonably achievable, (ALARA). Individualized dose reduction techniques using automated exposure control or adjustment of mA and/or kV according to the patient size were employed. FINDINGS: ABDOMEN: There is marked degenerative disc disease throughout the lumbar spine. There is grade one anterolisthesis at L5-S1 with bilateral L5 pars defects. There is mild bibasilar atelectasis. There is a gallstone in the gallbladder. There is perinephric stranding bilaterally. There are peripelvic cysts bilaterally. There is a simple cyst projecting off the superior aspect of the right kidney. The solid organs are otherwise unremarkable. There is mesh in the anterior abdominal wall. There are skin alexandro in the anterior abdominal wall. There is trace ascites and free intraperitoneal air. There is a right abdominal ostomy. There is a ventral hernia in the anterior left abdomen containing a small amount of fluid and free air. PELVIS: The urinary bladder is decompressed by a Torres. There is flocculent fluid and debris extending into the left inguinal canal, likely representing an abscess. There is stranding in the anterior abdominal wall. Status post sigmoid colon resection. The appendix is not identified. The bowel loops are mildly distended. There is presacral stranding and fluid. There is stranding in the right inguinal canal. A surgical drain is looped in the pelvis. Impression: Minimal free fluid and free air, consistent with recent operative intervention. Perinephric stranding is nonspecific but pyelonephritis is not excluded. Loculated fluid collection in the left inguinal canal could represent an abscess. Images reviewed, interpreted, and dictated by Roro Gaviria MD 04/09/2025 Procedure: OPEN REDO LOW ANTERIOR RESECTION WITH TAKEDOWN OF COLOVESICAL FISTULA DIVERTING LOOP ILEOSTOMY VENTRAL HERNIA REPAIR EXPLANT OF ABDOMINAL WALL MESH LYSIS OF ADHESIONS CYSTOSCOPY WITH URETERAL STENT INSERTION (Urology) Assessment #Colovesicular fistula: #Recurrent diverticulitis #Diabetes: #Hypertension: #Hyperlipidemia: #Tobacco use disorder: 04/12/2025 Plan IV Rocephin/Flagyl Labs In a.m. Infectious disease following NG tube was removed Clear liquid PT OT Discharge Planning: Patient remains sick in ICU * Rebekah Lockhart MD - 04/12/2025 7:25 AM EDT Subjective Patient is doing better today. Yesterday I was tied up in the life-threatening emergency had a different facility and I leaned heavily on my partner, the ICU team and the general surgery team. As the patient has remembered more about his past medical history I believe the series events are as follows. He had a left groin mesh placed roughly 30 years ago which has been intermittently infected over the years. I believe that his colon is an innocent bystander in his fistula process and that his left groin actually caused issues with the bladder and subsequently involved the colon. As I disconnectedhis colon intraoperatively from his abscess cavity that created a drainage opportunity of his abscess cavity to drain into the peritoneal cavity. This is caused him to have significant abdominal painand low-grade fevers. That purulent material was being drained from my surgical drain. Yesterday he went for percutaneous drainage of this left groin infected mesh. He feels better today. His pain is better controlled. He has not had any fevers. He is hungry. He has had nearly 2 L out from his ileostomy Review of Systems Objective Last Recorded Vitals Blood pressure 91/59, pulse 92, temperature 98.9 ??F (37.2 ??C), temperature source Oral, resp. rate 23, height 1.753 m (5' 9.02 ), weight 80.5 kg (177 lb 6.1 oz), SpO2 99%. Physical Exam Soft, slightly distended. Tender to palpation but better than yesterday. Ileostomy is pink patent and productive. His WOLF drain is more seropurulent today. IR drain with rebekah purulence Labs: Results for orders placed or performed during the hospital encounter of 04/09/25 (from the past 24 hours) Glucose, Nova Meter Status: None Collection Time: 04/11/25 12:57 PM Result Value Ref Range POC-GLUCOSE 99 70 - 110 mg/dL Generation Technician [id number] Body Fluid Culture + Gram Stain Status: None (Preliminary result) Collection Time: 04/11/25 4:26 PM Specimen: Retroperitoneum; Body Fluid Result Value Ref Range Result No growth Gram Stain Result Moderate gram positive cocci in pairs Gram Stain Result Many WBCs MRSA Screen Status: Normal Collection Time: 04/11/25 4:49 PM Specimen: Nares; Nasal Result Value Ref Range MRSA by PCR [facility] MRSA Not Detected by PCR MRSA Not Detected by PCR Glucose, Nova Meter Status: None Collection Time: 04/11/25 6:16 PM Result Value Ref Range POC-GLUCOSE 90 70 - 110 mg/dL Generation Technician [id number] Glucose, Nova Meter Status: None Collection Time: 04/11/25 11:08 PM Result Value Ref Range POC-GLUCOSE 99 70 - 110 mg/dL Generation Technician [id number] CBC w Manual Diff (SJ-BKR) Status: Abnormal Collection Time: 04/12/25 4:06 AM Result Value Ref Range WBC 12.7 (H) 4.2 - 9.1 K/??L RBC 3.31 (L) 4.63 - 6.08 M/??L Hemoglobin 9.2 (L) 13.7 - 17.5 GM/DL Hematocrit 28.9 (L) 40.1 - 51.0 % MCV 87 79 - 92 fL MCH 27.8 25.7 - 32.2 pg MCHC 31.8 (L) 32.3 - 36.5 GM/DL RDW 14.7 (H) 11.6 - 14.4 % Platelets 225 140 - 375 K/CU MM MPV 8.8 (L) 9.4 - 12.4 fL Comprehensive metabolic panel Status: Abnormal Collection Time: 04/12/25 4:06 AM Result Value Ref Range Sodium 137 136 - 145 meq/L Potassium 3.9 3.4 - 5.1 meq/L Chloride 107 98 - 112 meq/L CO2 17 (L) 22 - 29 meq/L Calcium 8.3 (L) 8.4 - 10.2 mg/dL Glucose 94 82 - 115 mg/dL BUN 10.7 8.4 - 25.7 mg/dL Creatinine 0.83 0.72 - 1.25 mg/dL BUN/Creatinine 13 8 - 20 eGFR (mL/min/1.73m2) 97 >=60 mL/min/1.73m2 Albumin 2.7 (L) 3.5 - 5.0 g/dL Alkaline Phosphatase 52 40 - 150 U/L ALT <7 <=45 U/L AST 10 (L) 11 - 34 U/L Total Bilirubin 0.5 0.2 - 1.2 mg/dL Protein, Total 6.0 (L) 6.4 - 8.3 g/dL Globulin 3.3 2.5 - 4.1 g/dL Anion Gap 17 (H) 4 - 12 A/G Ratio 0.8 0.7 - 1.9 Osmolality Calc 272.9 mOsm/kg Manual Differential Status: Abnormal Collection Time: 04/12/25 4:06 AM Result Value Ref Range Total Counted 100 % Neutros (manual) 83 (H) 50 - 65 % % Lymphs (manual) 5 (L) 24 - 44 % % Monos (manual) 10 (H) 4 - 5 % % Baso (manual) 1 0 - 1 % % Metamyelo (manual) 1 0 - 1 % RBC Morphology abnormal (A) Normal Platelet Estimate Adequate Adequate Anisocytosis 1+ Hypochromia 1+ Ovalocytes 1+ ANC# 10.54 K/??L CT DRAINAGE PERITONEAL/RETROPERITONEAL W GUIDANCE Narrative: CT GUIDED DRAIN PLACEMENT HISTORY: Left groin abscess. . ATTENDING RADIOLOGIST: Dr. Gaviria. PHYSICIAN DIRECTOR [facility]: Jean Pierre Hughes PA-C. PROCEDURE: After informed consent was obtained and a time-out was performed, the patient was prepped and draped in the usual sterile fashion over the left groin. Utilizing local anesthesia and sterile technique with a catheter access needle, access to the fluid collection was obtained under direct CT guidance. An Amplatz wire was placed. Serial dilatation was performed. A 10 Brazilian pigtail catheter was placed looped in the fluid collection. Post drain placement films demonstrate the catheter in good position. The patient received moderate conscious sedation. The patient tolerated the procedure well and left the department in good condition. CONSCIOUS SEDATION: 1 mg of IV Versed and 75 mcg of Fentanyl were administered. Continuous vital sign monitoring was used. An RN was present during the sedation process. Overall sedation time was 15 minutes. Impression: Status post CT guided percutaneous drain placement without immediate complication. Sample of the fluid was sent to lab for cultures. Images reviewed, interpreted, and dictated by Dr. Roro Gaviria. Transcribed by Jean Pierre Hughes PA-C XR chest AP portable Narrative: PORTABLE CHEST 04/11/2025 11:00 AM HISTORY: Shortness of air COMPARISON: April 09, 2025 FINDINGS: The patient is status post median sternotomy. The heart is stable in size. The lung sanchez demonstrate no significant change. There is no pneumothorax. The support devices are in good position. Impression: There has been no significant interval change. Continued follow up recommended. Images reviewed, interpreted, and dictated by Dr. Roro Gaviria. Transcribed by Giovany Meza PA-C. CT ABDOMEN/PELVIS WITH IV CONTRAST Standard Protocol Narrative: CT SCAN OF THE ABDOMEN AND PELVIS WITH CONTRAST; 04/11/2025 9:34 AM HISTORY: Epigastric pain. COMPARISON: January 2018. PROCEDURE: The patient was injected with IV contrast. Axial images were obtained from the lung bases to the pubic symphysis by computed tomography. This study was performed with techniques to keep radiation doses as low as reasonably achievable, (ALARA). Individualized dose reduction techniques using automated exposure control or adjustment of mA and/or kV according to the patient size were employed. FINDINGS: ABDOMEN: There is marked degenerative disc disease throughout the lumbar spine. There is grade one anterolisthesis at L5-S1 with bilateral L5 pars defects. There is mild bibasilar atelectasis. There is a gallstone in the gallbladder. There is perinephric stranding bilaterally. There are peripelvic cysts bilaterally. There is a simple cyst projecting off the superior aspect of the right kidney. The solid organs are otherwise unremarkable. There is mesh in the anterior abdominal wall. There are skin alexandro in the anterior abdominal wall. There is trace ascites and free intraperitoneal air. There is a right abdominal ostomy. There is a ventral hernia in the anterior left abdomen containing a small amount of fluid and free air. PELVIS: The urinary bladder is decompressed by a Torres. There is flocculent fluid and debris extending into the left inguinal canal, likely representing an abscess. There is stranding in the anterior abdominal wall. Status post sigmoid colon resection. The appendix is not identified. The bowel loops are mildly distended. There is presacral stranding and fluid. There is stranding in the right inguinal canal. A surgical drain is looped in the pelvis. Impression: Minimal free fluid and free air, consistent with recent operative intervention. Perinephric stranding is nonspecific but pyelonephritis is not excluded. Loculated fluid collection in the left inguinal canal could represent an abscess. Images reviewed, interpreted, and dictated by Roro Gaviria MD Assessment This is a 65-year-old male with significant past medical history and past surgical history. As we have gone along with his care I have learned more about him (as he remembers more). He has a chronically infected left groin mesh which was unknonw to me or to him. He is now postop day 3 from redo low anterior resection and takedown of what is presumed a diverticular colovesicular fistula which actually ended up being a colovesicular/left groin abscess fistula with diverting loop ileostomy and incisional hernia repair. As we disconnected his colon from the left groin abscesses have allowed purulent material to spill into the peritoneal cavity creating significant postoperative pain as well as abnormal findings. He is now status post percutaneous drain of the left groin. Today he looks better. His pain is better. Vital signs are improved. Leukocytosis is improved. Plan I gave him some additional fluid today as he has had high ileostomy output Pull his nasogastric tube and give him a diet of clear liquids Keep in the unit Continue antibiotics. This was a long-term pre-existing abscess that he has had for many years. Need to consider MRSA coverage Hopefully his percutaneous drain will allow diversion of this abscess out of the peritoneal cavity. Appreciate the ICU team, general surgery and my partner for their assistance * Kulwinder Donovan MD - 04/12/2025 6:26 AM EDT CRS note: Noted Dr. Lockhart's note from last evening. Patient in some pain overnight and I did add Dilaudid to his regiment. Patient seems more comfortable this morning lying in bed. I note heart rate trending down. Blood pressure on the low side, but patient is not symptomatic. Urine output good. Only 200 out NG tube overnight. White blood count trending down to 12.7. Other labs checked and okay. Examination: Patient in an abdominal binder. This was removed. Stoma is pink with real output and gas. Left lower quadrant drain with small amount of purulent drainage. Accordion pigtail in the left groin draining serosanguineous and purulent material. Abdomen is soft and only mildly distended. Impression: Status post Acosta's reversal with complication of left groin abscess from previously infected inguinal hernia mesh. This will be almost impossible to extirpate. Best hope is going to jessica control this with antibiotics and adequate drainage. Plan: 1. Will initiate irrigation of left groin drain with half-strength peroxide. 2. Okay to clamp NG tube with plan to remove later today. 3. If patient meets criteria to have NG tube removed, then may advance diet. 4. For now would plan on keeping him in the unit for another day. 5. Dr. Lockhart is around and available for questions. * Rebekah Lockhart MD - 04/11/2025 6:33 PM EDT Colorectal quick note: I was tied up with emergent cases at another facility, and my partner was gracious enough to reevaluate my patient this afternoon. His CT scan showed evidence of left groin abscess. After further discussion with a patient, my partner review of imaging this has intermittently built up overtime. His fistula likely arose because of this mesh abscess as opposed to a diverticular issue. Multiple conversations were held today between my partner, the ICU team as well as General surgery. His drain is purulent. This purulent is from the left inguinal canal as he would have no post. His drain is not fecculebt nor is it bilious. We discussed percutaneous drainage of left groin, abscess in attempt to divert Kaylah lens out of the peritoneal cavity, which is likely causing his peritonitis. Low concern for a bowel injury or a leak, particularly in the fact that he???s having ileostomy output * Enrique Lopez MD - 04/11/2025 4:40 PM EDT Consults PULMONARY AND CRITICAL CARE Consult Note Date of Service: 04/11/2025 Reason for Consult: For critical care management. Referring: Chantelle HPI: This is a 65 y.o. 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 He has had acosta's in 2012 and reversal and incisional hernia repair in 2013. He has been followed outpatient by Colorectal surgery due to concerns for colovesicular fistula immediately proximal to his anastomosis. He underwent Colonoscopy and CT scan and noted inflamed colovesicular fistula between the descending/sigmoid colon junction and the left urinary bladder with bladder wall thickening. There wasalso an abdominal midline ventral hernia containing nonobstructed bowel loops. He presented today for elective open lower anterior resection, takedown of colovesicular fistula, possible diverting loop ileostomy, ventral hernia repair and cystoscopy with temporary ureteral stents. He tolerated the procedure well and transferred to ICU for monitoring. Pulmonary has been consulted for ICU management. Daily progress note : 04/10: Patient was seen and examined today. During rounds patient was awake alert oriented time placeand person. Vitals reviewed stable. Labs and images reviewed, white cell count trending down, creatinine within normal. Chest x-ray from yesterday reviewed/interpreted independently showed no acute infiltrate. Discussed with the primary team at the bedside, and will transfer patient out of the ICU. 04/11: Patient was seen and examined today. During rounds patient was awake, alert, oriented. Overallpatient looks ill, with high risk for decline. Vitals reviewed, currently patient on 2 L oxygen, satting 98%, mild tachypnea and tachycardia noted. Labs reviewed, white cell count trending down, creatinine within normal. CT abdomen was done showed minimal free fluid and free air consistent with recent operative intervention, perinephric stranding is nonspecific but pyonephritis cannot be excluded, loculated fluid collection in the left inguinal canal could represent an abscess. Spoke with the general surgeon on the phone, and the plan to possible take patient to the OR today dueto purulent material drainage . PAST MEDICAL HISTORY: Past Medical History: Diagnosis Date Anxiety CAD (coronary artery disease) Colovesical fistula Depression Diabetes (HCC) High blood pressure High cholesterol Hypertension Kawasaki disease (HCC) Vitamin D deficiency PAST SURGICAL HISTORY: Past Surgical History: Procedure Laterality Date COLON SURGERY patient stated he had colon surgery (colostomy with reversal) CORONARY ANGIOPLASTY WITH STENT PLACEMENT CORONARY ARTERY BYPASS GRAFT CYSTOSCOPY,INSERTION URETERAL STENTS Bilateral 04/09/2025 Procedure: CYSTOSCOPY, WITH URETERAL STENT INSERTION; Surgeon: Rebekah Lockhart MD; Location: [facility]; Service: General Surgery; Laterality: Bilateral; HAND SURGERY Bilateral HERNIA REPAIR LAPAROSCOPY,LOW ANTERIOR RESECTION N/A 04/09/2025 Procedure: (OPEN LOW ANTERIOR RESECTION WITH TAKEDOWN OF COLOVESICAL FISTULA DIVERTING LOOP ILEOSTOMY VENTRAL HERNIA REPAIR AND CYSTOSCOPY AND STENTS) EXPLANTS OF MESH, REDO LAR,EX LAP LYSIS OF ADHESIONS; Surgeon: Rebekah Lockhart MD; Location: [facility]; Service: General Surgery; Laterality: N/A; Past Surgical History: Procedure Laterality Date COLON SURGERY patient stated he had colon surgery (colostomy with reversal) CORONARY ANGIOPLASTY WITH STENT PLACEMENT CORONARY ARTERY BYPASS GRAFT CYSTOSCOPY,INSERTION URETERAL STENTS Bilateral 04/09/2025 Procedure: CYSTOSCOPY, WITH URETERAL STENT INSERTION; Surgeon: Rebekah Lockhart MD; Location: [facility]; Service: General Surgery; Laterality: Bilateral; HAND SURGERY Bilateral HERNIA REPAIR LAPAROSCOPY,LOW ANTERIOR RESECTION N/A 04/09/2025 Procedure: (OPEN LOW ANTERIOR RESECTION WITH TAKEDOWN OF COLOVESICAL FISTULA DIVERTING LOOP ILEOSTOMY VENTRAL HERNIA REPAIR AND CYSTOSCOPY AND STENTS) EXPLANTS OF MESH, REDO LAR,EX LAP LYSIS OF ADHESIONS; Surgeon: Rebekah Lockhart MD; Location: [facility]; Service: General Surgery; Laterality: N/A; Allergies: No Known Allergies SOCIAL HISTORY: Social History Tobacco Use Smoking status: Every Day Types: Cigarettes Smokeless tobacco: Never Substance Use Topics Alcohol use: Never Drug use: Yes Types: Marijuana Comment: weekly FAMILY HISTORY: family history is not on file. Review of Systems Constitutional: Positive for malaise/fatigue. HENT: Negative. Eyes: Negative. Respiratory: Negative. Cardiovascular: Negative. Gastrointestinal: Positive for abdominal pain. Genitourinary: Negative. Musculoskeletal: Negative. Skin: Negative. Neurological: Positive for weakness. Psychiatric/Behavioral: The patient is nervous/anxious. Vital Signs Temp: [98.5 ??F (36.9 ??C)-100.2 ??F (37.9 ??C)] 98.7 ??F (37.1 ??C) Pulse: [79-124] 101 Resp: [19-41] 21 BP: (81-124)/(52-78) 115/78 Current: Temp: 98.7 ??F (37.1 ??C) Pulse: 101 Resp: 21 BP: 115/78 SpO2: 97 % 24 Hour: BP Min: 81/52 Max: 124/65 Temp Min: 98.5 ??F (36.9 ??C) Max: 100.2 ??F (37.9 ??C) Pulse Min: 79 Max: 124 Resp Min: 19 Max: 41 SpO2 Min: 85 % Max: 100 % Intake/Output: I/O last 3 completed shifts: In: 7234.5 [I.V.:2003.5; IV Piggyback:800] Out: 2610 [Urine:1875; Drains:35; Stool:700] Physical Exam Vitals reviewed. Constitutional: Appearance: He is ill-appearing. HENT: Head: Normocephalic and atraumatic. Mouth/Throat: Mouth: Mucous membranes are dry. Eyes: Pupils: Pupils are equal, round, and reactive to light. Cardiovascular: Rate and Rhythm: Normal rate and regular rhythm. Abdominal: General: Bowel sounds are normal. There is distension. Palpations: Abdomen is soft. Tenderness: There is abdominal tenderness. Comments: Midline abdominal incision with dressing, left-sided WOLF drain with purulent discharge, right-sided ostomy Musculoskeletal: General: No deformity. Skin: General: Skin is warm and dry. Capillary Refill: Capillary refill takes less than 2 seconds. Neurological: Mental Status: He is alert and oriented to person, place, and time. Psychiatric: Mood and Affect: Mood normal. Intake/Output: I/O last 3 completed shifts: In: 2804.5 [I.V.:2003.5; IV Piggyback:800] Out: 2610 [Urine:1875; Drains:35; Stool:700] LABS Results for orders placed or performed during the hospital encounter of 04/09/25 (from the past 24 hours) Glucose, Nova Meter Status: Abnormal Collection Time: 04/10/25 6:15 PM Result Value Ref Range POC-GLUCOSE 115 (H) 70 - 110 mg/dL Generation Technician [id number] Glucose, Nova Meter Status: Abnormal Collection Time: 04/10/25 11:28 PM Result Value Ref Range POC-GLUCOSE 132 (H) 70 - 110 mg/dL Generation Technician [id number] CBC w Manual Diff (SJ-BKR) Status: Abnormal Collection Time: 04/11/25 3:26 AM Result Value Ref Range WBC 14.2 (H) 4.2 - 9.1 K/??L RBC 3.54 (L) 4.63 - 6.08 M/??L Hemoglobin 9.8 (L) 13.7 - 17.5 GM/DL Hematocrit 30.2 (L) 40.1 - 51.0 % MCV 85 79 - 92 fL MCH 27.7 25.7 - 32.2 pg MCHC 32.5 32.3 - 36.5 GM/DL RDW 14.7 (H) 11.6 - 14.4 % Platelets 215 140 - 375 K/CU MM MPV 8.4 (L) 9.4 - 12.4 fL Comprehensive metabolic panel Status: Abnormal Collection Time: 04/11/25 3:26 AM Result Value Ref Range Sodium 136 136 - 145 meq/L Potassium 4.0 3.4 - 5.1 meq/L Chloride 105 98 - 112 meq/L CO2 18 (L) 22 - 29 meq/L Calcium 8.7 8.4 - 10.2 mg/dL Glucose 116 (H) 82 - 115 mg/dL BUN 10.7 8.4 - 25.7 mg/dL Creatinine 0.96 0.72 - 1.25 mg/dL BUN/Creatinine 11 8 - 20 eGFR (mL/min/1.73m2) 87 >=60 mL/min/1.73m2 Albumin 3.0 (L) 3.5 - 5.0 g/dL Alkaline Phosphatase 56 40 - 150 U/L ALT <7 <=45 U/L AST 14 11 - 34 U/L Total Bilirubin 0.8 0.2 - 1.2 mg/dL Protein, Total 6.3 (L) 6.4 - 8.3 g/dL Globulin 3.3 2.5 - 4.1 g/dL Anion Gap 17 (H) 4 - 12 A/G Ratio 0.9 0.7 - 1.9 Osmolality Calc 272.2 mOsm/kg Manual Differential Status: Abnormal Collection Time: 04/11/25 3:26 AM Result Value Ref Range Total Counted 100 % Neutros (manual) 88 (H) 50 - 65 % % Bands (manual) 3 % % Lymphs (manual) 6 (L) 24 - 44 % % Monos (manual) 3 (L) 4 - 5 % RBC Morphology abnormal (A) Normal Platelet Estimate Adequate Adequate Anisocytosis 1+ Hypochromia 1+ [place] Cells 1+ Ovalocytes 1+ ANC# 12.92 K/??L Glucose, Nova Meter Status: Abnormal Collection Time: 04/11/25 5:24 AM Result Value Ref Range POC-GLUCOSE 119 (H) 70 - 110 mg/dL Generation Technician [id number] Glucose, Nova Meter Status: None Collection Time: 04/11/25 12:57 PM Result Value Ref Range POC-GLUCOSE 99 70 - 110 mg/dL Generation Technician [id number] No results found for: PT , INR , PTT CHEM7: Sodium Date Value Ref Range Status 04/11/2025 136 136 - 145 meq/L Final Potassium Date Value Ref Range Status 04/11/2025 4.0 3.4 - 5.1 meq/L Final Chloride Date Value Ref Range Status 04/11/2025 105 98 - 112 meq/L Final CO2 Date Value Ref Range Status 04/11/2025 18 (L) 22 - 29 meq/L Final BUN Date Value Ref Range Status 04/11/2025 10.7 8.4 - 25.7 mg/dL Final Creatinine Date Value Ref Range Status 04/11/2025 0.96 0.72 - 1.25 mg/dL Final eGFR (mL/min/1.73m2) Date Value Ref Range Status 04/11/2025 87 >=60 mL/min/1.73m2 Final Calcium Date Value Ref Range Status 04/11/2025 8.7 8.4 - 10.2 mg/dL Final Lab Results Component Value Date AST 14 04/11/2025 ALT <7 04/11/2025 No results for input(s): POCGLU in the last 72 hours. No results for input(s): POCPH , POCPCO2 , POCPO2 , POCABG in the last 72 hours. Invalid input(s): POCSAT , POCART , ARTPOC Microbiology: Microbiology Results (last 7 days) Procedure Component Value Units Date/Time Body Fluid Culture + Gram Stain [[id number]] Collected: 04/11/25 162 Order Status: Sent Specimen: Body Fluid from Retroperitoneum Anaerobic Culture [[id number]] Collected: 04/11/25 162 Order Status: Sent Specimen: Body Fluid from Retroperitoneum AFB Culture And Stain [[id number]] Collected: 04/11/25 162 Order Status: Sent Specimen: Body Fluid from Retroperitoneum Radiology Results (last day) Procedure Component Value Units Date/Time CT DRAINAGE PERITONEAL/RETROPERITONEAL W GUIDANCE [[id number]] Resulted: 04/11/25 1544 Order Status: Sent Updated: 04/11/25 1629 XR chest AP portable [[id number]] Collected: 04/11/25 1224 Order Status: Completed Updated: 04/11/25 1229 Narrative: PORTABLE CHEST 04/11/2025 11:00 AM HISTORY: Shortness of air COMPARISON: April 09, 2025 FINDINGS: The patient is status post median sternotomy. The heart is stable in size. The lung sanchez demonstrate no significant change. There is no pneumothorax. The support devices are in good position. Impression: There has been no significant interval change. Continued follow up recommended. Images reviewed, interpreted, and dictated by Dr. Roro Gaviria. Transcribed by Giovany Meza PA-C. CT ABDOMEN/PELVIS WITH IV CONTRAST Standard Protocol [[id number]] Collected: 04/11/25 1000 Order Status: Completed Updated: 04/11/25 1014 Narrative: CT SCAN OF THE ABDOMEN AND PELVIS WITH CONTRAST; 04/11/2025 9:34 AM HISTORY: Epigastric pain. COMPARISON: January 2018. PROCEDURE: The patient was injected with IV contrast. Axial images were obtained from the lung bases to the pubic symphysis by computed tomography. This study was performed with techniques to keep radiation doses as low as reasonably achievable, (ALARA). Individualized dose reduction techniques using automated exposure control or adjustment of mA and/or kV according to the patient size were employed. FINDINGS: ABDOMEN: There is marked degenerative disc disease throughout the lumbar spine. There is grade one anterolisthesis at L5-S1 with bilateral L5 pars defects. There is mild bibasilar atelectasis. There is a gallstone in the gallbladder. There is perinephric stranding bilaterally. There are peripelvic cysts bilaterally. There is a simple cyst projecting off the superior aspect of the right kidney. The solid organs are otherwise unremarkable. There is mesh in the anterior abdominal wall. There are skin alexandro in the anterior abdominal wall. There is trace ascites and free intraperitoneal air. There is a right abdominal ostomy. There is a ventral hernia in the anterior left abdomen containing a small amount of fluid and free air. PELVIS: The urinary bladder is decompressed by a Torres. There is flocculent fluid and debris extending into the left inguinal canal, likely representing an abscess. There is stranding in the anterior abdominal wall. Status post sigmoid colon resection. The appendix is not identified. The bowel loops are mildly distended. There is presacral stranding and fluid. There is stranding in the right inguinal canal. A surgical drain is looped in the pelvis. Impression: Minimal free fluid and free air, consistent with recent operative intervention. Perinephric stranding is nonspecific but pyelonephritis is not excluded. Loculated fluid collection in the left inguinal canal could represent an abscess. Images reviewed, interpreted, and dictated by Roro Gaviria MD No valid procedures specified. ASSESSMENT: Pulmonary On Room Air Tobacco Abuse Marijuana Abuse Neurology: Anxiety/Depression Marijuana Abuse Cardiology: Hypotension post procedure; mild; received Albumin and IVF H/O CAD/CABG and Cardiac stents, HTN/HLD Infectious disease: Sepsis. Abdominal infection. Nephrology: Stable Bun/Cr S/P Cystoscopy with Bilateral ureteral stents Gastroenterology: Recurrent Complicated Diverticulitis with Colovesicular Fistula H/O of Star's procedure with subsequent reversal and incisional hernia repair in 2019 S/P Open Redo LAR with take down of colovesicular fistula with diverting loop illeostomy as well ascystoscopy and bilateral ureteral stent placement 04/09/25 Post Acosta, with infected left groin mesh from previous hernia repair with purulent material drainage into the peritoneal cavity and extraperitoneal abscess in the left groin. Endocrine: DM Hematology: Stable H/H/platelets PLAN: Supplemental O2 prn for O2 sats < 92%, currently patient on 2 L oxygen, patient still with mild tachycardia, mild tachypnea, mild increased work of breathing, and overall looks ill. CT abdomen was done showed minimal free fluid and free air consistent with recent operative intervention, perinephric stranding is nonspecific but pyonephritis cannot be excluded, loculated fluid collection in the left inguinal canal could represent an abscess. Spoke with the general surgeon on the phone, and the plan to possible take patient tothe OR today due to purulent material drainage. On further evaluation, saw the patient, and at this point, patient seems to have an infected left groin mesh from previous hernia repair with purulent material drainage into the peritoneal cavity and extraperitoneal abscess in the left groin, plan at this point to proceed with percutaneous drainage of the left groin and placement of a drain and this would allow for irrigation of the infected mesh and drainage of purulence and if this fails to try of the intraperitoneal purulence and patient will likely need exploratory laparotomy with washout with possible explant of the left groin mesh. Chest x-ray was done, reviewed,/interpreted independently, no acute infiltrate Duonebs prn Encourage IS/FVD Hemodynamic support MAP > 65 mmgh, currently low normal, on LR at 75 cc/h, if needed will start patient on Levophed and vasopressin. S/P Albumin IVF LR @ 75ml/hr Antibx Flagyl and ceftriaxone per primary. Commend broadening antibiotics to Zosyn/Zyvox, plus micafungin. Cultures ordered today, currently pending Will consult ID for further evaluation Nutrition: Defer to surgery. NG tube in place PT/OT Protonix/Lovenox Prognosis: Guarded. High risk further decline. Case discussed with the multidisciplinary team including nurse practitioner, nurse, RT, airplane pilot supervisor, pharmacist, and case management during multidisciplinary round. I Dr.Al Carter, have personally evaluated the patient and performed a ldhm-hn-coio diagnostic evaluation on this patient; I have Obtained history, performed physical examination, reviewed laboratory studies. I have independently interpreted chest images. I have actively directed the medical care, formulated diagnosis, and the plan of care. Patient requires a high complexity of decision making for assessment. 35 minutes critical care time was spent. Voice certified professional coder technology (Napartner) is used for dictation of this note and sound-alike words might be erroneously placed despite reviewing the note for accuracy. Errors in dictation may reflect use of voice recognition software and not all errors in certified professional coder may have been detected prior to signing. * CANDIE Gilbert/David - 04/11/2025 4:19 PM EDT Images from the original note were not included. Inpatient Occupational Therapy Treatment Note Patient Name: Levar Rand Date of : 1960 Date of Treatment: 04/11/25 Start Time: 1024 Stop Time: 1048 Session Duration: 24 minutes This patient is a 65 y.o. 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 Past Medical History: Diagnosis Date Anxiety CAD (coronary artery disease) Colovesical fistula Depression Diabetes (HCC) High blood pressure High cholesterol Hypertension Kawasaki disease (HCC) Vitamin D deficiency Past Surgical History: Procedure Laterality Date COLON SURGERY patient stated he had colon surgery (colostomy with reversal) CORONARY ANGIOPLASTY WITH STENT PLACEMENT CORONARY ARTERY BYPASS GRAFT CYSTOSCOPY,INSERTION URETERAL STENTS Bilateral 04/09/2025 Procedure: CYSTOSCOPY, WITH URETERAL STENT INSERTION; Surgeon: Rebekah Lockhart MD; Location: [facility]; Service: General Surgery; Laterality: Bilateral; HAND SURGERY Bilateral HERNIA REPAIR LAPAROSCOPY,LOW ANTERIOR RESECTION N/A 04/09/2025 Procedure: (OPEN LOW ANTERIOR RESECTION WITH TAKEDOWN OF COLOVESICAL FISTULA DIVERTING LOOP ILEOSTOMY VENTRAL HERNIA REPAIR AND CYSTOSCOPY AND STENTS) EXPLANTS OF MESH, REDO LAR,EX LAP LYSIS OF ADHESIONS; Surgeon: Rebekah Lockhart MD; Location: [facility]; Service: General Surgery; Laterality: N/A; General Visit type: Treatment Approved by: Nurse Platt/Lizet Patient disposition upon entry: Patient verified by name, Patient verified by date of , Supinein bed, All needs met and within reach, Call light/pull cord in reach, Nursing aware/notified, Yellow non slip socks donned Co-treated by: PT Precautions Weightbearing status: No restrictions Precautions: Fall risk Isolation precautions: Standard LDA/Brace/Protective equipment: Lines, drains, and airways: WOLF drain, peripheral IV, telemetry Subjective Subjective: Pt agreeable to occupational therapy treatment plan. Pain Pt reports 9/10 in abdominal region. Cognition Cognition: Overall cognitive status: Patient is awake and alert, attending to directions appropriately, demonstrating good problem solving skills, and aware of any deficits or impairments, if present. Orientation level: Oriented x4 Objective Vitals Post-Intervention: Heart rate: 105 beats per minute Blood pressure: 109/72 mmHg SpO2: 96% O2 (L/min): Room Air Bed Mobility Supine to sit: Minimal assistance Sit to supine: Minimal assistance Transfers Sit to stand:Minimal assistance Stand to sit:Minimal assistance ADLs Not assessed today. Balance Static sitting balance:Good: Patient able to maintain balance without handheld support; limited postural sway Dynamic sitting balance:Good: Patient accepts moderate challenge; able to maintain balance while picking object off the floor Static standing balance:Fair: Patient able to maintain balance with handheld support, may require occasional minimal assistance Dynamic standing balance:Fair: Patient accepts minimal challenge; able to maintain balance while turning head/trunk Activity Tolerance Patient limited with activity/intervention due to pain, fatigue, deconditioning, and weakness Therapeutic Exercise Not performed. Treatment OT has arrived to patient's room with pt presenting supine at bed level. Pt currently agreeable to occupational/physical therapy co-treatment today. Pt able to perform bed mobility with MIN A to EOB with discomfort noted in abdominal region. Pt instructed on log-roll technique; however, pt verbalized only wanting to perform supine>sit directly. Pt able to transition to stand with MIN A at walker level. Pt able to navigate room environment including alongside of nurses station prior to requiring turnaround to transition back to EOB. Pt able to perform and transition sit>supine with SBA. Pt reported pain level of 9/10 in abdominal region post mobility. Pt reviewed UE exercises for overhead to tolerance including shoulder shrugs, and scapular retractions. Pt positioned and needs met prior to therapy leaving room today. Assessment Assessment Patient demonstrated good performance during this treatment session as pt able to engage in bed mobility to EOB, sit<>stand, and performance of mobility and arm exercises today. Patient continues to present with deficits with significant abdominal discomfort, activity tolerance in sitting/standing, dynamic/static standing balance, coordination, and safety. These deficits currently impact the patient's ability to perform ADLs and functional mobility, putting them at an increased risk for increased falls, decreased quality of life, poor outcomes, further functional decline, further decreased strength, increased caregiver burden. Patient will benefit from continued OT services to addressthe aforementioned functional deficits. Plan Recommendations Discharge recommendations: Patient would benefit from 1-2 hours of multidisciplinary therapy per day upon discharge from acute care setting to assist with returning to prior level of functioning. DME recommendations: Unable to make adaptive/DME recommendations at this time. Treatment Plan: Continue OT POC OT Frequency/Duration: 3x/week for 14 days Goals Bathing:sponge bath seated with modified independence. Lower body dressing: donning and doffing lower body clothing with modified independence. Toileting: toileting with modified independence. Functional transfers: stand pivot transfer with supervision. Target Date: 04/24/2025 Goals were discussed with patient Progress towards goals: progressing Education Patient educated on safety, use of call light, role of occupational therapy, patient's plan of care, exercises, functional mobility and following, they were able to verbalize understanding, nod head to understanding. Interdisciplinary Communication Following treatment, therapist communicated with nursing regarding patient's performance during therapy session, patient's level of assistance with transfers for nursing mobility. Patient Disposition Upon Leaving Patient Disposition: Supine in bed, All needs met and within reach, Call light/pull cord in reach, Nursing aware/notified, Yellow non slip socks donned If this patient discharges prior to next therapy session, this note serves as the patient's discharge summary. Electronically signed by CANDIE Gilbert/David - 04/11/2025 - 4:19 PM EDT * Kulwinder Donovan MD - 04/11/2025 1:58 PM EDT CRS note: Asked to see this gentleman who has had relative hypotension, new purulent drainage from pelvic Chapin-Carroll drain and leukocytosis. Patient is status post Acosta's reversal on Wednesday. Patient is afebrile. Heart rate 103. Low grade temp up to 100.2 Blood pressure 97/65 off Rodolfo. MAP'srunning in the 70's-80. CT scan abdomen and pelvis this morning reveals colorectal anastomosis in the upper pelvis. There is a WOLF drain in the pelvis. I note what appears to be an abscess in the left groin with probable purulent material that is feeding into the peritoneal cavity. This does not look like a loop of bowel.I have reviewed films with Dr. Gaviria. Examination: Patient tender to palpation in the left groin. I am unable to feel any ballotable lesion or cellulitis. Abdominal incisions clean and intact. Stoma pink and functioning. Abdomen with mild distention. Impression: Status post Acosta's now with what appears to be an infected left groin mesh from previous hernia repair with purulent material draining into the peritoneal cavity and an extraperitonealabscess in the left groin. I do not feel that this is outreach representative of anastomotic leak as drainage does not have bowel contents. Patient's ileostomy continues to function well. I have reviewed patient's CT scan which reveals the above-noted findings. I have spoken with Dr. Lockhart on the phone. I feel the best course of action would be percutaneous drainage of left groinand placement of a drain. This would allow for irrigation of the infected mesh and drainage of purulence. If this fails to dry up the intraperitoneal purulence, then patient will likely need exploratory laparotomy with washout with possible explant of left groin mesh. * Lizet Torres RN - 04/11/2025 11:18 AM EDT Sepsis Zone Tool provided to patient and/or family at bedside using the Explanation, Verbalizes Understanding. * Murtaza Amato MD - 04/11/2025 11:03 AM EDT Images from the original note were not included. [facility] INFECTIOUS DISEASE PROGRESS NOTE Levar Rand 1960 [id number] Date of consult: 04/10/2025 Admit date: 04/09/2025 Requesting Provider: @[email or web address]@ Evaluating physician: Murtaza Amato MD Reason for Consultation: Colovesical fistula repair 04/09/2025 Chief Complaint: Above Subjective History of present illness: Patient is a 65 y.o. Yr old male with a history of diabetes mellitus type 2, essential hypertension, hyperlipidemia, ongoing smoking, perforated diverticulitis with Zina procedure 2011 with reversal 2011, incisional hernia status post ventral hernia repair with Broughton-Pablo 2013, and colovesical fis sandra. Possible need for pacemaker but held off because of fistula. The patient was admitted for an elective repair to [facility] 04/09/2025. He underwent surgery with Dr. Rebekah Lockhart, and Dr. Asim Cancino on 04/09/2025. There was no rebekah abscess or significant purulence noted. Therewas the presence of mesh noted from previous repairs of inguinal and abdominal hernias. Mesh was partially excised. I was consulted on 04/10/2025 for further evaluation and treatment. No reported history of ill contacts, zoonotic exposures, TB, HIV, significant travel, immunocompromised state. 04/11/2025 history reviewed. Slow improvement. No high fever. Status post repair colovesical fistula with mesh resection. Continues on ceftriaxone and metronidazole until 04/19. Occasional abdominal pain. CT scan of the abdomen and pelvis on 04/11 with left inguinal canal fluid which may be abscess. Past Medical History: Diagnosis Date Anxiety CAD (coronary artery disease) Colovesical fistula Depression Diabetes (HCC) High blood pressure High cholesterol Hypertension Kawasaki disease (HCC) Vitamin D deficiency Past Surgical History: Procedure Laterality Date COLON SURGERY patient stated he had colon surgery (colostomy with reversal) CORONARY ANGIOPLASTY WITH STENT PLACEMENT CORONARY ARTERY BYPASS GRAFT CYSTOSCOPY,INSERTION URETERAL STENTS Bilateral 04/09/2025 Procedure: CYSTOSCOPY, WITH URETERAL STENT INSERTION; Surgeon: Rebeakh Lockhart MD; Location: [facility]; Service: General Surgery; Laterality: Bilateral; HAND SURGERY Bilateral HERNIA REPAIR LAPAROSCOPY,LOW ANTERIOR RESECTION N/A 04/09/2025 Procedure: (OPEN LOW ANTERIOR RESECTION WITH TAKEDOWN OF COLOVESICAL FISTULA DIVERTING LOOP ILEOSTOMY VENTRAL HERNIA REPAIR AND CYSTOSCOPY AND STENTS) EXPLANTS OF MESH, REDO LAR,EX LAP LYSIS OF ADHESIONS; Surgeon: Rebekah Lockhart MD; Location: [facility]; Service: General Surgery; Laterality: N/A; Pediatric History Patient Parents Not on file Other Topics Concern Not on file Social History Narrative Not on file Positive for smoking, no alcohol or drug use family history is not on file. Reviewed and unremarkable No Known Allergies There is no immunization history on file for this patient. Medication: @Scheduled Meds: albumin human 500 mL intravenous Once 500 mL at 04/11/25 0759 alvimopan 12 mg oral BID 12 mg at 04/11/25817 atorvastatin 40 mg oral Every Night 40 mg at 04/10/252052 cefTRIAXone 2 g intravenous Q24H IVPB Stopped at 04/11/25 08 enoxaparin 40 mg subcutaneous Q24H 40 mg at 04/10/25 172 [Held by provider] metoprolol succinate 50 mg oral Every Night metroNIDAZOLE 500 mg intravenous Q6H AWA IVPB Stopped at 04/11/25 0639 pantoprazole 40 mg intravenous Daily 40 mg at 04/11/25 08 QUEtiapine 200 mg oral Every Night 200 mg at 04/10/252053 sodium chloride 0.9% (NS) 1,000 mL intravenous Once 1,000 mL at 04/11/25 0919 tiZANidine 4 mg oral TID 4 mg at 04/11/25 0814 Continuous Infusions: Current Facility-Administered Medications Medication Dose Route Frequency Provider Last Rate Last Admin albumin human 5 % IV 500 mL 500 mL intravenous Once Rebekah Lockhart MD 125 mL/hr at 04/11/25 [id number] mL at 04/11/25 0759 alvimopan (ENTEREG) capsule 12 mg 12 mg oral BID Rebekah Lockhart MD 12 mg at 04/11/25 0818 atorvastatin (LIPITOR) tablet 40 mg 40 mg oral Every Night Ismaeel Mercedes, DO 40 mg at 04/10/252052 cefTRIAXone (ROCEPHIN) 2 g in sodium chloride 0.9 % (NS) 50 mL SHANELLE IVPB 2 g intravenous Q24H MD Pietro IVPB Stopped at 04/11/25 0844 dextrose 50% (D50W) injection 25 g 25 g intravenous Q15 Min PRN Ismaeel Mercedes, DO diazePAM (VALIUM) injection 2.5 mg 2.5 mg intravenous Q6H PRN Rebekah Lockhart MD 2.5 mg at 04/10/25 1518 enoxaparin (LOVENOX) syringe 40 mg 40 mg subcutaneous Q24H Rebekah Lockhart MD 40 mg at 04/10/25 1720 glucagon injection 1 mg 1 mg intraMUSCULAR Q15 Min PRN Ismaeel Mercedes, DO glucose chew tab 16 g 16 g oral Q15 Min PRN Ismaeel Mercedes, DO lactated Ringer's infusion 75 mL/hr intravenous Continuous Rebekah Lockhart MD 75 mL/hr at 04/11/25 0915 75 mL/hr at 04/11/25 0915 [Held by provider] metoprolol succinate (TOPROL-XL) 24 hr tablet 50 mg 50 mg oral Every Night MD Inocencio metroNIDAZOLE (FLAGYL) IVPB 500 mg in sodium chloride 0.9 % 100 mL (premix) 500 mg intravenous Q6H [facility] Rebekah Lockhart MD IVPB Stopped at 04/11/25 0639 morphine injection 4 mg 4 mg intravenous Q4H PRN Rebekah Lockhart MD 4 mg at 04/11/25 0634 nicotine (NICODERM CQ) 21 mg/24 hr patch 1 patch 1 patch transdermal Daily PRN Ismaeel Mercedes, DO ondansetron (ZOFRAN-ODT) disintegrating tablet 4 mg 4 mg oral Q8H PRN Rebekah Lockhart MD Or ondansetron (ZOFRAN) injection 4 mg 4 mg intravenous Q8H PRN Rebekah Lockhart MD oxyCODONE (ROXICODONE) immediate release tablet 5 mg 5 mg oral Q4H PRN Rebekah Lockhart MD 5 mg at04/11/25 0827 pantoprazole (PROTONIX) injection 40 mg 40 mg intravenous Daily Rebekah Lockhart MD 40 mg at 04/11/25 0814 QUEtiapine (SEROquel) tablet 200 mg 200 mg oral Every Night Ismaeel Mercedes, DO 200 mg at 04/10/252053 sodium chloride 0.9% (NS) bolus 1,000 mL intravenous Once Rebekah Lockhart MD 500 mL/hr at 04/11/25 0919 1,000 mL at 04/11/25 0919 tiZANidine (ZANAFLEX) tablet 4 mg 4 mg oral TID Ismaeel Mercedes, DO 4 mg at 04/11/25 0814 PRN Meds:.@[email or web address]@ Please refer to the medical record for a full medication list Review of Systems: Constitutional-- No Fever, chills or sweats. Appetite good, and no malaise. No fatigue. HEENT-- No new vision, hearing or throat complaints. No epistaxis or oral sores. Denies odynophagiaor dysphagia. No odynophagia or dysphagia. No headache, photophobia or neck stiffness. CV-- No chest pain, palpitation or syncope Resp-- No SOB/cough/Hemoptysis GI- No nausea, vomiting, or diarrhea. No hematochezia, melena, or hematemesis. Denies jaundice or chronic liver disease. -- No dysuria, hematuria, or flank pain. Denies hesitancy, urgency. Lymph- no swollen lymph nodes in neck/axilla or groin. Heme- No active bruising or bleeding; no Hx of DVT or PE. MS-- no swelling or pain in the bones or joints of arms/legs. No new back pain. Neuro-- No acute focal weakness or numbness in the arms or legs. No seizures. Skin--No rashes or lesions, no nodules Physical Exam: Vital Signs Temp: [98.5 ??F (36.9 ??C)-100.2 ??F (37.9 ??C)] 98.5 ??F (36.9 ??C) Pulse: [75-124] 104 Resp: [19-41] 41 BP: (81-115)/(51-74) 106/68 Blood pressure 106/68, pulse 104, temperature 98.5 ??F (36.9 ??C), temperature source Oral, resp. rate (!) 41, height 1.753 m (5' 9.02 ), weight 80.5 kg (177 lb 6.1 oz), SpO2 99%. GENERAL: Awake and alert, in minor distress. Appears older than stated age. Resting in bed. HEENT: Normocephalic, atraumatic. Oropharynx without thrush. Dentition in good repair. No cervical adenopathy. No neck masses. Ears externally normal, Nose externally normal. Trachea midline. EYES: No conjunctival injection. No icterus. EOM full. LYMPHATICS: No lymphadenopathy of the neck or axillary or inguinal regions. HEART: No murmur, gallop, or pericardial friction rub. Reg rate rhythm, No JVD at 45 degrees. LUNGS: Clear to auscultation and percussion. No respiratory distress, no use of accessory muscles. No rales or rhonchi. ABDOMEN: Soft, nontender, nondistended. No appreciable HSM. Bowel sounds normal. SKIN: Warm and dry without cutaneous eruptions. No nodules. Surgical dressings in place abdomen. PSYCHIATRIC: Mental status lucid. No confusion. EXT: No cellulitic change. Normal ROM. NEURO: Oriented to name, nonfocal Results Review: I reviewed the patient's new clinical results. Recent Labs Lab(s) Units 04/11/256 04/10/2532104/09/252017 WBC K/??L 14.2* 16.0* 22.1* HGB GM/DL 9.8* 9.3* 10.5* HCT % 30.2* 29.0* 31.8* PLT K/CU MM 215 241 275 Recent Labs Lab(s) Units 08/06/25 0524 08/06/25 0326 NA meq/L -- 136 K meq/L -- 4.0 CL meq/L -- 105 CO2 meq/L -- 18* BUN mg/dL -- 10.7 CREATININE mg/dL -- 0.96 GLUCOSE mg/dL 119* 116* CALCIUM mg/dL -- 8.7 Recent Labs Lab(s) Units 04/11/25 0326 ALKPHOS U/L 56 BILITOT mg/dL 0.8 ALT U/L <7 AST U/L 14 No results for input(s): SEDRATE in the last 168 hours. No results for input(s): CRP in the last 168 hours. No results for input(s): VANCOTROUGH , VANCORANDOM in the last 168 hours. No results for input(s): LACTATE in the last 168 hours. Estimated Creatinine Clearance: 72.7 mL/min (by C-G formula based on SCr of 0.96 mg/dL). @LABRCNTIP (cpk,ast,alt,alkaline phosphatase)@ Microbiology: Microbiology Results (last 7 days) No results found for the last 168 hours. Radiology: Radiology Results (last 3 days) Procedure Component Value Units Date/Time XR chest AP portable [[id number]] Resulted: 04/11/25 1100 Order Status: Sent Updated: 04/11/[address] ABDOMEN/PELVIS WITH IV CONTRAST Standard Protocol [[id number]] Collected: 04/11/25 1000 Order Status: Completed Updated: 04/11/25 1014 Narrative: CT SCAN OF THE ABDOMEN AND PELVIS WITH CONTRAST; 04/11/2025 9:34 AM HISTORY: Epigastric pain. COMPARISON: January 2018. PROCEDURE: The patient was injected with IV contrast. Axial images were obtained from the lung bases to the pubic symphysis by computed tomography. This study was performed with techniques to keep radiation doses as low as reasonably achievable, (ALARA). Individualized dose reduction techniques using automated exposure control or adjustment of mA and/or kV according to the patient size were employed. FINDINGS: ABDOMEN: There is marked degenerative disc disease throughout the lumbar spine. There is grade one anterolisthesis at L5-S1 with bilateral L5 pars defects. There is mild bibasilar atelectasis. There is a gallstone in the gallbladder. There is perinephric stranding bilaterally. There are peripelvic cysts bilaterally. There is a simple cyst projecting off the superior aspect of the right kidney. The solid organs are otherwise unremarkable. There is mesh in the anterior abdominal wall. There are skin alexandro in the anterior abdominal wall. There is trace ascites and free intraperitoneal air. There is a right abdominal ostomy. There is a ventral hernia in the anterior left abdomen containing a small amount of fluid and free air. PELVIS: The urinary bladder is decompressed by a Torres. There is flocculent fluid and debris extending into the left inguinal canal, likely representing an abscess. There is stranding in the anterior abdominal wall. Status post sigmoid colon resection. The appendix is not identified. The bowel loops are mildly distended. There is presacral stranding and fluid. There is stranding in the right inguinal canal. A surgical drain is looped in the pelvis. Impression: Minimal free fluid and free air, consistent with recent operative intervention. Perinephric stranding is nonspecific but pyelonephritis is not excluded. Loculated fluid collection in the left inguinal canal could represent an abscess. Images reviewed, interpreted, and dictated by Roro Gaviria MD XR chest AP portable [[id number]] Collected: 04/10/25 0747 Order Status: Completed Updated: 04/10/25 1016 Narrative: PORTABLE CHEST 04/09/2025 8:38 PM HISTORY: Acute shortness of breath. COMPARISON: March 12, 2025. FINDINGS: The heart is normal in size . The mediastinum is unremarkable . There are mild increased interstitial markings. There is no significant pleural effusion. There is no pneumothorax . Status post median sternotomy. A new nasogastric tube tip terminates in the stomach. The side port terminates at the gastroesophageal junction. Impression: Interval placement of nasogastric tube. Side port terminates at the GE junction. Mild increased interstitial markings may represent mild edema. Images reviewed, interpreted, and dictated by Dr. Jeanie Melton. Transcribed by Jean Pierre Hughes PA-C IMPRESSION: Colovesical fistula repaired 04/09/2025 without obvious abscess but some evidence of inflammation, with partial resection of previous Broughton-Pablo mesh. Fluid in the left inguinal canal postop versus abscess versus other. Seen on CT scan 04/11. Leukocytosis, neutrophilic related to above issues. Anemia, acute postoperative blood loss and chronic disease. Diabetes mellitus type 2 with increased risk for infection. Hypocalcemia 8.1. Ongoing smoking. Acute hypoxic respiratory failure, 2 L/min nasal cannula oxygen on 04/11 may be related to atelectasis versus COPD versus other. PLAN: Diagnostically, continue to follow patient's physical exam, CBC, CMP, CRP, radiographs as needed. MRSA screen. CT-guided drainage of left inguinal fluid collection pending. Therapeutically, consider ceftriaxone plus metronidazole while in hospital, with probable de-escalation to amoxicillin/clavulanate, with duration of antibiotics until 04/19/2025 for longer. Patient had some evidence of inflammation at the time of surgery but no rebekah abscess. Does also have Broughton-Texmesh in place which was partially resected. Future concerns could include potential infection of Broughton-Pablo mesh which is a difficult clinical problem to remedy and can become a chronic focus of infection. Especially important and lieu of his future considerations for pacemaker. Not clear what optimal duration of antibiotics would be in the setting given the absence of systemic signs of infection or abscess. Supportive care. Room air on 04/10. 04/11/2025 2 L/min nasal cannula oxygen. I discussed the patient's findings and my recommendations with the patient and nursing. Thank you for asking me to see Levar Rand. Our group would be pleased to follow this patient over the course of their hospitalization and assist with outpatient antimicrobial therapy, as indicated. Further recommendations depend on the results of the cultures and clinical course. The patient hasan increased risk for adverse drug reactions, complications of IV access, readmission. Side effectsof medications were discussed. Time > 30 min. 10:10-41 am. This visit included the following complex service elements: Complex medical decision-making associated with antimicrobial prescribing. In-depth chart review with high level synthesis for complex diagnoses. Managed infection prevention and treatment protocol associated with transitions of care for this complex patient. Counseled patients, family members, and/or caregivers regarding antimicrobial stewardship and resistance for the patient. Murtaza Amato MD 04/11/2025 * Marilia Campos RN - 04/11/2025 11:00 AM EDTSummary: Ostomy Education [facility] RN present for education regarding new ileostomy Upon arrival patient resting on Katherine support surface, patient agreeable teaching/education. All ostomy teaching per [place] ileostomy folder that was left with patient. Patient knowledgeable about ostomy care due to previously having a colostomy. Teach and instruct daily ostomy care, diet, what stoma should look like and when to call doctor.Teach and instruct how to open and close pouch. Teach and instruct how to contact ostomy clinic after discharge with any ostomy complications. Patient is currently using a one-piece [place] system.A follow- up visit will be provided to change the full system and assess the patient's knowledge through the teach-back method. Reviewed wear time and pouch emptying at ? to ?? full. Reviewed DME process of ordering supplies. Recommend home health upon discharge and discussed this with patient. All current questions were addressed. Please notify the wound/ostomy team if leakage occurs and a seal cannot be maintained. * Dawn Serrano PTA - 04/11/2025 10:24 AM EDT Images from the original note were not included. Inpatient Physical Therapy Treatment Patient Name: Levar Rand Date of : 1960 Date of Treatment: 04/11/25 Start Time 1024 Stop Time 1048 Session Duration 24 minutes General Visit Type: Treatment Approved By: Nurse Platt Patient Disposition Upon Entry: Supine in bed, Call Light/Pull Cord in reach, All needs met and within reach Patient Verified By: Name and Date of Co-treated by: OT Assisted by: cardiovascular tech Precautions Weight-Bearing Status: Full Weight Bearing (FWB) Precautions: Fall risk Isolation Precautions: Standard Lines, tubes, drains, airway: WOLF drain, peripheral IV, telemetry Subjective Subjective: Patient agreeable to physical therapy treatment. Pain Yes. 0-10 SCALE Pain location: abdomen 9/10. Pain intervention: Medication (See eMAR). Response to intervention: Not changed Cognition Overall cognitive status: Patient is awake and alert, attending to directions appropriately, demonstrating good problem solving skills, and aware of any deficits or impairments, if present. Objective Vitals Post-intervention vitals Heart rate: 105 beats per minute Blood pressure: 109/72 mmHg SpO2: 96% O2 : room air Functional Mobility Bed Mobility: Supine to Sit: minimal assistance Sit to Supine: minimal assistance Transfers Sit to Stand: minimal assistance, gait belt used, rolling walker used Stand to Sit: minimal assistance, gait belt used, rolling walker used Gait Gait Assistance: contact guard assist Assistive Device: Gait Belt, Rolling walker Distance: 100ft Gait speed: slowed Deviation(s): increased trunk flexion Stair Management Unable to assess due to weakness. Wheelchair Mobility Not assessed, patient ambulatory. AM-PAC Basic Mobility Inpatient Short Form How much difficulty does the patient currently have: Turning over in bed (including adjusting bedclothes, sheets, and blankets)? (1) Total/Unable (not able to do the activity or can only perform the activity using assistive devices or requires assistance from another person, including supervision or cueing for safety) Sitting down on and standing up from a chair with arms (e.g., wheelchair, bedside commode, etc.)? (1) Total/Unable (not able to do the activity or can only perform the activity using assistive devices or requires assistance from another person, including supervision or cueing for safety) Moving from lying on back to sitting on side of bed? (1) Total/Unable (not able to do the activity or can only perform the activity using assistive devices or requires assistance from another person,including supervision or cueing for safety) How much help from another person does the patient currently need: Moving to and from a bed to a chair (including a wheelchair)? (3) A little (Minimal/Contact guard/Supervision/Setup) Need to walk in hospital room? (3) A little (Minimal/Contact guard/Supervision/Setup) Climbing 3-5 steps with a railing? (2) A lot (Maximal/Moderate assist) Score Raw score=11 t-Scale score=33.86 Standard error=3.22 CMS 0-100%=72.57% MDC=4.72 A raw score of >= 16 is significantly associated with increased odds of discharge to home in addition to consideration made for the patient's cognition and social determinants of health. Balance Static/dynamic sitting and static/dynamic standing balance grades Balance Grade Sitting Static Good - patient able to maintain balance without handhold support, limited postural sway Sitting Dynamic Good - patient accepts moderate challenge; able to maintain balance while picking object off floor Standing Static Good - patient able to maintain balance without handhold support, limited postural sway Standing Dynamic Good - patient accepts moderate challenge; able to maintain balance while picking object off floor Activity Tolerance Patient limited with activity/intervention due to pain Treatment Patient assisted to EOB and declined log roll stating he like to do it a different way ; required extended time to complete transfers Assessment Patient has improved mobility this session with ability to amb and would benefit from continued IPPT to progress towards PLOF Plan Treatment plan: Continue per plan of care. PT Frequency/Duration: 5x/week for 14 days Recommendations Discharge recommendations: Discharge recommendations pending progression of acute hospital stay secondary to the patient's medical status DME recommendations: Patient has no DME/adaptive equipment discharge needs at this time. Goals [id number]: By the target date, patient will perform [id number] with modified independence, utilizing bed railing, to improve independence with bed mobility and improve overall comfort and well-being. [id number]-[id number]: By the target date, patient will perform sit to stand with modified independence and rolling walker to improve independence with functional mobility, decrease risk of falling, improve ability to participate in activities of daily living that require standing, and return to prior levelof function. Gait: Patient will ambulate 200'' with stand by assistance and utilizing rolling walker in order toincrease independence with ambulation and improve balance with ambulation and decrease risk of falling Stairs: By the target date, patient will negotiate 4 step(s), with a reciprocal pattern, utilizing no assistive device and stand by assistance, to demonstrate ability to safely negotiate stairs at home. Target Date: 04/24/2025 Progress towards goals: progressing Education Patient educated on ambulation, transfers, and bed mobility and following, they were able to demonstrate understanding. No further questions or concerns stated. Interdisciplinary Communication Following treatment, therapist communicated with nursing regarding patient's performance during physical therapy session. Patient Disposition Upon Leaving Supine in bed, Call Light/Pull Cord in reach, All needs met and within reach If this patient discharges prior to next therapy session, this note serves as the patient's discharge summary. Electronically signed by Dawn Serrano PTA - 04/11/25 - 2:10 PM EDT Cosigned by Theo Gutierrez, PT at 04/13/2025 2:06 PM EDT Associated attestation - Theo Gutierrez PT - 04/13/2025 1:06 PM CDT I, Theo Gutierrez PT, DPT, reviewed the notes, assessments, and/or procedures performed by Dawn Serrano PTA, I concur with their documentation of Levar Rand. Electronically signed by Theo Gutierrez PT, DPT - 04/13/25 - 2:06 PM EST * Lizzy Kramer MD - 04/11/2025 8:20 AM EDT Subjective NG tube in place in pain Not feeling well Last Recorded Vitals Blood pressure 101/66, pulse 124, temperature 99.4 ??F (37.4 ??C), temperature source Oral, resp. rate 26, height 1.753 m (5' 9.02 ), weight 80.5 kg (177 lb 6.1 oz), SpO2 96%. Physical Exam Head atraumatic normocephalic Pupils round and reactive Eyes no conjunctival injection or discharge Ears no discharge Nose no bleeding or discharge Mouth dry Neck supple full range of motion Chest diminished in the bilaterally no wheeze crackle rhonchi Heart S1 and S2 healed regular rate Abdomen diminished bowel sounds Extremities no edema erythema Neurological patient alert awake Psychiatric anxiety Skin no apparent rashes Endocrine no thyromegaly tenderness GEN patient in bed mild distress Labs: Results for orders placed or performed during the hospital encounter of 04/09/25 (from the past 24 hours) Glucose, Nova Meter Status: Abnormal Collection Time: 04/10/25 12:58 PM Result Value Ref Range POC-GLUCOSE 112 (H) 70 - 110 mg/dL Generation Technician [id number] Glucose, Nova Meter Status: Abnormal Collection Time: 04/10/25 6:15 PM Result Value Ref Range POC-GLUCOSE 115 (H) 70 - 110 mg/dL Generation Technician [id number] Glucose, Nova Meter Status: Abnormal Collection Time: 04/10/25 11:28 PM Result Value Ref Range POC-GLUCOSE 132 (H) 70 - 110 mg/dL Generation Technician [id number] CBC w Manual Diff (SJ-BKR) Status: Abnormal Collection Time: 04/11/25 3:26 AM Result Value Ref Range WBC 14.2 (H) 4.2 - 9.1 K/??L RBC 3.54 (L) 4.63 - 6.08 M/??L Hemoglobin 9.8 (L) 13.7 - 17.5 GM/DL Hematocrit 30.2 (L) 40.1 - 51.0 % MCV 85 79 - 92 fL MCH 27.7 25.7 - 32.2 pg MCHC 32.5 32.3 - 36.5 GM/DL RDW 14.7 (H) 11.6 - 14.4 % Platelets 215 140 - 375 K/CU MM MPV 8.4 (L) 9.4 - 12.4 fL Comprehensive metabolic panel Status: Abnormal Collection Time: 04/11/25 3:26 AM Result Value Ref Range Sodium 136 136 - 145 meq/L Potassium 4.0 3.4 - 5.1 meq/L Chloride 105 98 - 112 meq/L CO2 18 (L) 22 - 29 meq/L Calcium 8.7 8.4 - 10.2 mg/dL Glucose 116 (H) 82 - 115 mg/dL BUN 10.7 8.4 - 25.7 mg/dL Creatinine 0.96 0.72 - 1.25 mg/dL BUN/Creatinine 11 8 - 20 eGFR (mL/min/1.73m2) 87 >=60 mL/min/1.73m2 Albumin 3.0 (L) 3.5 - 5.0 g/dL Alkaline Phosphatase 56 40 - 150 U/L ALT <7 <=45 U/L AST 14 11 - 34 U/L Total Bilirubin 0.8 0.2 - 1.2 mg/dL Protein, Total 6.3 (L) 6.4 - 8.3 g/dL Globulin 3.3 2.5 - 4.1 g/dL Anion Gap 17 (H) 4 - 12 A/G Ratio 0.9 0.7 - 1.9 Osmolality Calc 272.2 mOsm/kg Manual Differential Status: Abnormal Collection Time: 04/11/25 3:26 AM Result Value Ref Range Total Counted 100 % Neutros (manual) 88 (H) 50 - 65 % % Bands (manual) 3 % % Lymphs (manual) 6 (L) 24 - 44 % % Monos (manual) 3 (L) 4 - 5 % RBC Morphology abnormal (A) Normal Platelet Estimate Adequate Adequate Anisocytosis 1+ Hypochromia 1+ Ab Cells 1+ Ovalocytes 1+ ANC# 12.92 K/??L Glucose, Nova Meter Status: Abnormal Collection Time: 04/11/25 5:24 AM Result Value Ref Range POC-GLUCOSE 119 (H) 70 - 110 mg/dL Generation Technician [id number] XR chest AP portable Narrative: PORTABLE CHEST 04/09/2025 8:38 PM HISTORY: Acute shortness of breath. COMPARISON: March 12, 2025. FINDINGS: The heart is normal in size . The mediastinum is unremarkable . There are mild increased interstitial markings. There is no significant pleural effusion. There is no pneumothorax . Status post median sternotomy. A new nasogastric tube tip terminates in the stomach. The side port terminates at the gastroesophageal junction. Impression: Interval placement of nasogastric tube. Side port terminates at the GE junction. Mild increased interstitial markings may represent mild edema. Images reviewed, interpreted, and dictated by Dr. Jeanie Melton. Transcribed by Jean Pierre Hughes PA-C 04/09/2025 Procedure: OPEN REDO LOW ANTERIOR RESECTION WITH TAKEDOWN OF COLOVESICAL FISTULA DIVERTING LOOP ILEOSTOMY VENTRAL HERNIA REPAIR EXPLANT OF ABDOMINAL WALL MESH LYSIS OF ADHESIONS CYSTOSCOPY WITH URETERAL STENT INSERTION (Urology) Assessment #Colovesicular fistula: #Recurrent diverticulitis #Diabetes: #Hypertension: #Hyperlipidemia: #Tobacco use disorder: 04/11/2025 Plan IV Rocephin/Flagyl Labs In a.m. PT OT Infectious disease following Patient may need another surgery monitor closely in ICU Discharge Planning: Patient remains sick in ICU * Rebekah Lockhart MD - 04/11/2025 7:59 AM EDT Subjective Patient is doing fair today. He has become slightly more tachycardic over the last 24 hours. Blood pressure has been intermittently soft at times. He has made 1400 of urine over the last 24 hours. Hehas made 700 out from his ileostomy. Only 15 mL are recorded out from his WOLF drain Review of Systems Objective Last Recorded Vitals Blood pressure 101/66, pulse 124, temperature 99.4 ??F (37.4 ??C), temperature source Oral, resp. rate 26, height 1.753 m (5' 9.02 ), weight 80.5 kg (177 lb 6.1 oz), SpO2 96%. Physical Exam Abdominal exam is distended. His ileostomy is viable and productive. His WOLF drain looks more like murky tannish fluid Labs: Results for orders placed or performed during the hospital encounter of 04/09/25 (from the past 24 hours) Glucose, Nova Meter Status: Abnormal Collection Time: 04/10/25 12:58 PM Result Value Ref Range POC-GLUCOSE 112 (H) 70 - 110 mg/dL Generation Technician [id number] Glucose, Nova Meter Status: Abnormal Collection Time: 04/10/25 6:15 PM Result Value Ref Range POC-GLUCOSE 115 (H) 70 - 110 mg/dL Generation Technician [id number] Glucose, Nova Meter Status: Abnormal Collection Time: 04/10/25 11:28 PM Result Value Ref Range POC-GLUCOSE 132 (H) 70 - 110 mg/dL Generation Technician [id number] CBC w Manual Diff (SJ-BKR) Status: Abnormal Collection Time: 04/11/25 3:26 AM Result Value Ref Range WBC 14.2 (H) 4.2 - 9.1 K/??L RBC 3.54 (L) 4.63 - 6.08 M/??L Hemoglobin 9.8 (L) 13.7 - 17.5 GM/DL Hematocrit 30.2 (L) 40.1 - 51.0 % MCV 85 79 - 92 fL MCH 27.7 25.7 - 32.2 pg MCHC 32.5 32.3 - 36.5 GM/DL RDW 14.7 (H) 11.6 - 14.4 % Platelets 215 140 - 375 K/CU MM MPV 8.4 (L) 9.4 - 12.4 fL Comprehensive metabolic panel Status: Abnormal Collection Time: 04/11/25 3:26 AM Result Value Ref Range Sodium 136 136 - 145 meq/L Potassium 4.0 3.4 - 5.1 meq/L Chloride 105 98 - 112 meq/L CO2 18 (L) 22 - 29 meq/L Calcium 8.7 8.4 - 10.2 mg/dL Glucose 116 (H) 82 - 115 mg/dL BUN 10.7 8.4 - 25.7 mg/dL Creatinine 0.96 0.72 - 1.25 mg/dL BUN/Creatinine 11 8 - 20 eGFR (mL/min/1.73m2) 87 >=60 mL/min/1.73m2 Albumin 3.0 (L) 3.5 - 5.0 g/dL Alkaline Phosphatase 56 40 - 150 U/L ALT <7 <=45 U/L AST 14 11 - 34 U/L Total Bilirubin 0.8 0.2 - 1.2 mg/dL Protein, Total 6.3 (L) 6.4 - 8.3 g/dL Globulin 3.3 2.5 - 4.1 g/dL Anion Gap 17 (H) 4 - 12 A/G Ratio 0.9 0.7 - 1.9 Osmolality Calc 272.2 mOsm/kg Manual Differential Status: Abnormal Collection Time: 04/11/25 3:26 AM Result Value Ref Range Total Counted 100 % Neutros (manual) 88 (H) 50 - 65 % % Bands (manual) 3 % % Lymphs (manual) 6 (L) 24 - 44 % % Monos (manual) 3 (L) 4 - 5 % RBC Morphology abnormal (A) Normal Platelet Estimate Adequate Adequate Anisocytosis 1+ Hypochromia 1+ Ab Cells 1+ Ovalocytes 1+ ANC# 12.92 K/??L Glucose, Nova Meter Status: Abnormal Collection Time: 04/11/25 5:24 AM Result Value Ref Range POC-GLUCOSE 119 (H) 70 - 110 mg/dL Generation Technician [id number] XR chest AP portable Narrative: PORTABLE CHEST 04/09/2025 8:38 PM HISTORY: Acute shortness of breath. COMPARISON: March 12, 2025. FINDINGS: The heart is normal in size . The mediastinum is unremarkable . There are mild increased interstitial markings. There is no significant pleural effusion. There is no pneumothorax . Status post median sternotomy. A new nasogastric tube tip terminates in the stomach. The side port terminates at the gastroesophageal junction. Impression: Interval placement of nasogastric tube. Side port terminates at the GE junction. Mild increased interstitial markings may represent mild edema. Images reviewed, interpreted, and dictated by Dr. Jeanie Melton. Transcribed by Jean Pierre Hughes PA-C Assessment 65-year-old male postop day 2 from open low anterior resection, takedown of colovesicular fistula with some involvement of his left inguinal mesh which had eroded through preperitoneal lining as wellas exposed Broughton-Pablo mesh from his ventral abdominal hernia repair. Also underwent ventral hernia repair primarily with suture and diverting loop ileostomy. He is increasing in his tachycardia his blood pressure is a bit softer. His WOLF drain is murky. Unsure why this is. We do not encounter any significant purulent material at the time of his surgery. Potential etiologies of this could be further drainage from his exposed left inguinal hernia mesh versus a leak from his colorectal anastomosis. I think a leak from his new anastomosis which is diverted with appear feculent. Plan I am unsure what is causing his abnormal WOLF drainage Will obtain a CT scan today Give him some more albumin and volume resuscitation If we do not get an answer for his drainage, he may require reexploration We will get a CT scan. He refused to get An updated scan preoperatively. He also did not inform me that he had inguinal hernia mesh. I would like to get a full lay of the land before we consider reoperating * Rebekah Lockhart MD - 04/10/2025 4:25 PM EDT Subjective Patient is doing fair today. I saw him in the ICU around 1 PM. His pain is doing fairly well. He denies any fevers or chills. Leukocytosis has come down a bit. Hemoglobin has dropped to 9.3 from 12.6but he also has had a fair amount of resuscitation. Acidosis is improving with a CO2 of 20. He is making adequate amount of urine. After prompting him multiple times the patient did eventually remember that he had an inguinal hernia repair on the left. The scar was hidden in his hairline. This was the source of the mesh that wasposterior to the pubic tubercle. This was not explanted Review of Systems Objective Last Recorded Vitals Blood pressure 112/65, pulse 93, temperature 98.9 ??F (37.2 ??C), temperature source Axillary, resp. rate 23, height 1.753 m (5' 9.02 ), weight 80.5 kg (177 lb 6.1 oz), SpO2 91%. Physical Exam Abdomen is soft, slightly distended. Incision is clean dry and intact with minimal strikethrough. WOLF drain with somewhat murky looking sanguinous material. Urine is clearing Labs: Results for orders placed or performed during the hospital encounter of 04/09/25 (from the past 24 hours) CALCIUM Ionized Status: Abnormal Collection Time: 04/09/25 8:18 PM Result Value Ref Range Calcium Ionized 1.10 (L) 1.12 - 1.32 mmol/L CBC with automated diff Status: Abnormal Collection Time: 04/09/25 8:18 PM Result Value Ref Range WBC 22.1 (H) 4.2 - 9.1 K/??L RBC 3.78 (L) 4.63 - 6.08 M/??L Hemoglobin 10.5 (L) 13.7 - 17.5 GM/DL Hematocrit 31.8 (L) 40.1 - 51.0 % MCV 84 79 - 92 fL MCH 27.8 25.7 - 32.2 pg MCHC 33.0 32.3 - 36.5 GM/DL RDW 14.7 (H) 11.6 - 14.4 % Platelets 275 140 - 375 K/CU MM MPV 8.3 (L) 9.4 - 12.4 fL % Neutros 89 (H) 34 - 68 % % Lymphs 3 (L) 22 - 53 % % Monos 8 5 - 12 % % Eos 0 (L) 1 - 7 % % Baso 0 0 - 1 % NRBC Absolute <0.01 0 - 0.012 K/ul # Neutros 19.67 (H) 1.78 - 5.38 K/??L # Lymphs 0.58 (L) 1.32 - 3.57 K/??L # Monos 1.75 (H) 0.30 - 0.82 K/??L # Eos <0.03 (L) 0.04 - 0.54 K/ L # Baso 0.03 0.01 - 0.08 K/??L Immature Granulocytes-Relative 0.50 (H) 0.01 - 0.43 % # IG 0.11 (H) 0.00 - 0.03 K/uL Comprehensive metabolic panel Status: Abnormal Collection Time: 04/09/25 8:18 PM Result Value Ref Range Sodium 138 136 - 145 meq/L Potassium 4.7 3.4 - 5.1 meq/L Chloride 109 98 - 112 meq/L CO2 18 (L) 22 - 29 meq/L Calcium 8.2 (L) 8.4 - 10.2 mg/dL Glucose 168 (H) 82 - 115 mg/dL BUN 10.6 8.4 - 25.7 mg/dL Creatinine 1.00 0.72 - 1.25 mg/dL BUN/Creatinine 11 8 - 20 eGFR (mL/min/1.73m2) 83 >=60 mL/min/1.73m2 Albumin 3.1 (L) 3.5 - 5.0 g/dL Alkaline Phosphatase 55 40 - 150 U/L ALT <7 <=45 U/L AST 10 (L) 11 - 34 U/L Total Bilirubin 0.7 0.2 - 1.2 mg/dL Protein, Total 6.1 (L) 6.4 - 8.3 g/dL Globulin 3.0 2.5 - 4.1 g/dL Anion Gap 16 (H) 4 - 12 A/G Ratio 1.0 0.7 - 1.9 Osmolality Calc 278.8 mOsm/kg Lactic Acid with reflex (SJ) Status: Normal Collection Time: 04/09/25 8:18 PM Result Value Ref Range Lactic Acid Level (mmol/L) 1.1 0.5 - 2.2 mmol/L Magnesium Status: Normal Collection Time: 04/09/25 8:18 PM Result Value Ref Range Magnesium 1.7 1.6 - 2.6 mg/dL Phosphorus Status: Normal Collection Time: 04/09/25 8:18 PM Result Value Ref Range Phosphorus 3.5 2.5 - 4.5 mg/dL CBC with automated diff Status: Abnormal Collection Time: 04/10/25 3:22 AM Result Value Ref Range WBC 16.0 (H) 4.2 - 9.1 K/??L RBC 3.39 (L) 4.63 - 6.08 M/??L Hemoglobin 9.3 (L) 13.7 - 17.5 GM/DL Hematocrit 29.0 (L) 40.1 - 51.0 % MCV 86 79 - 92 fL MCH 27.4 25.7 - 32.2 pg MCHC 32.1 (L) 32.3 - 36.5 GM/DL RDW 14.8 (H) 11.6 - 14.4 % Platelets 241 140 - 375 K/CU MM MPV 8.7 (L) 9.4 - 12.4 fL Nucleated Red Blood Cell 0.0 0 - 0.2 % % Neutros 82 (H) 34 - 68 % % Lymphs 6 (L) 22 - 53 % % Monos 11 5 - 12 % % Eos 0 (L) 1 - 7 % % Baso 0 0 - 1 % NRBC Absolute <0.01 0 - 0.012 K/ul # Neutros 12.81 (H) 1.78 - 5.38 K/??L # Lymphs 0.98 (L) 1.32 - 3.57 K/??L # Monos 1.72 (H) 0.30 - 0.82 K/??L # Eos <0.03 (L) 0.04 - 0.54 K/ L # Baso <0.03 0.01 - 0.08 K/ L Immature Granulocytes-Relative 0.60 (H) 0.01 - 0.43 % # IG 0.10 (H) 0.00 - 0.03 K/uL Comprehensive metabolic panel Status: Abnormal Collection Time: 04/10/25 3:22 AM Result Value Ref Range Sodium 137 136 - 145 meq/L Potassium 4.5 3.4 - 5.1 meq/L Chloride 108 98 - 112 meq/L CO2 20 (L) 22 - 29 meq/L Calcium 8.1 (L) 8.4 - 10.2 mg/dL Glucose 146 (H) 82 - 115 mg/dL BUN 10.9 8.4 - 25.7 mg/dL Creatinine 0.84 0.72 - 1.25 mg/dL BUN/Creatinine 13 8 - 20 eGFR (mL/min/1.73m2) 96 >=60 mL/min/1.73m2 Albumin 2.8 (L) 3.5 - 5.0 g/dL Alkaline Phosphatase 50 40 - 150 U/L ALT <7 <=45 U/L AST 10 (L) 11 - 34 U/L Total Bilirubin 0.8 0.2 - 1.2 mg/dL Protein, Total 5.7 (L) 6.4 - 8.3 g/dL Globulin 2.9 2.5 - 4.1 g/dL Anion Gap 14 (H) 4 - 12 A/G Ratio 1.0 0.7 - 1.9 Osmolality Calc 275.8 mOsm/kg Magnesium Status: Normal Collection Time: 04/10/25 3:22 AM Result Value Ref Range Magnesium 1.7 1.6 - 2.6 mg/dL Basic Metabolic Panel Status: Abnormal Collection Time: 04/10/25 3:22 AM Result Value Ref Range Sodium 137 136 - 145 meq/L Potassium 4.5 3.4 - 5.1 meq/L CO2 20 (L) 22 - 29 meq/L Chloride 108 98 - 112 meq/L Glucose 146 (H) 82 - 115 mg/dL BUN 10.9 8.4 - 25.7 mg/dL Creatinine 0.84 0.72 - 1.25 mg/dL BUN/Creatinine 13 8 - 20 Calcium 8.1 (L) 8.4 - 10.2 mg/dL Anion Gap 14 (H) 4 - 12 eGFR (mL/min/1.73m2) 96 >=60 mL/min/1.73m2 Osmolality Calc 275.8 mOsm/kg Glucose, Nova Meter Status: Abnormal Collection Time: 04/10/25 5:39 AM Result Value Ref Range POC-GLUCOSE 128 (H) 70 - 110 mg/dL Generation Technician [id number] Glucose, Nova Meter Status: Abnormal Collection Time: 04/10/25 12:58 PM Result Value Ref Range POC-GLUCOSE 112 (H) 70 - 110 mg/dL Generation Technician [id number] XR chest AP portable Narrative: PORTABLE CHEST 04/09/2025 8:38 PM HISTORY: Acute shortness of breath. COMPARISON: March 12, 2025. FINDINGS: The heart is normal in size . The mediastinum is unremarkable . There are mild increased interstitial markings. There is no significant pleural effusion. There is no pneumothorax . Status post median sternotomy. A new nasogastric tube tip terminates in the stomach. The side port terminates at the gastroesophageal junction. Impression: Interval placement of nasogastric tube. Side port terminates at the GE junction. Mild increased interstitial markings may represent mild edema. Images reviewed, interpreted, and dictated by Dr. Jeanie Melton. Transcribed by Jean Pierre Hughes PA-C Assessment 65-year-old male postop day 1 from open low anterior resection, takedown of colovesicular fistula with some involvement of his left inguinal radio mesh which had eroded through preperitoneal lining as well as exposed Broughton-Pablo mesh from his ventral abdominal hernia repair. Also underwent ventral hernia repair primarily with suture and diverting loop ileostomy. Plan Plan I like to keep him in the ICU for now. I think will be a lot for the nurses to handle Continue on IV antibiotics for now Continue NG tube, may be able to remove tomorrow Ostomy education * Eric Hay, OTR/L - 04/10/2025 3:57 PM EDT Images from the original note were not included. Inpatient Occupational Therapy Initial Evaluation Patient Name: Levar Rand Date of : 1960 Date of Evaluation: 04/10/25 Start Time: 1412 Stop Time: 1445 Session Duration: 33 minutes Total time: 43 minutes spent, including 10 minutes for nursing collaboration, thorough chart and systems review, and clinical reasoning. This patient is a 65 y.o. 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 Past Medical History: Diagnosis Date Anxiety CAD (coronary artery disease) Colovesical fistula Depression Diabetes (HCC) High blood pressure High cholesterol Hypertension Kawasaki disease (HCC) Vitamin D deficiency Past Surgical History: Procedure Laterality Date COLON SURGERY patient stated he had colon surgery (colostomy with reversal) CORONARY ANGIOPLASTY WITH STENT PLACEMENT CORONARY ARTERY BYPASS GRAFT CYSTOSCOPY,INSERTION URETERAL STENTS Bilateral 04/09/2025 Procedure: CYSTOSCOPY, WITH URETERAL STENT INSERTION; Surgeon: Rebekah Lockhart MD; Location: [facility]; Service: General Surgery; Laterality: Bilateral; HAND SURGERY Bilateral HERNIA REPAIR LAPAROSCOPY,LOW ANTERIOR RESECTION N/A 04/09/2025 Procedure: (OPEN LOW ANTERIOR RESECTION WITH TAKEDOWN OF COLOVESICAL FISTULA DIVERTING LOOP ILEOSTOMY VENTRAL HERNIA REPAIR AND CYSTOSCOPY AND STENTS) EXPLANTS OF MESH, REDO LAR,EX LAP LYSIS OF ADHESIONS; Surgeon: Rebekah Lockhart MD; Location: [facility]; Service: General Surgery; Laterality: N/A; General Visit type: Initial Evaluation Approved by: Nurse Morales/Cherry Patient disposition upon entry: Patient verified by name, Patient verified by date of , Supinein bed, All needs met and within reach, Call light/pull cord in reach, Nursing aware/notified, Yellow non slip socks donned Precautions Weightbearing status: No restrictions Precautions: Fall risk Isolation precautions: Standard LDA/Brace/Protective equipment: Lines, drains, and airways: WOLF drain, NG tube, SCDs, arterial line,blood pressure cuff, torres catheter, ostomy, peripheral IV, telemetry Subjective Subjective: Pt agreeable to occupational therapy treatment today. Patient's stated goal: Pt reports that he wants to get better and get back home. Pain Pt reported 5-6/10 initial pain upon entry into room. Post treatment, pt reported pain level of 7-8/10 in abdominal region. OT communicated with pt's nurse and reported pain increase. Cognition Cognition: Overall cognitive status: Patient is awake and alert, attending to directions appropriately, demonstrating good problem solving skills, and aware of any deficits or impairments, if present. Orientation level: Oriented x4 Vision/Hearing History Visual/Hearing History: Current Vision: No visual deficits Current Hearing: No hearing deficits Home Living Lives with: Alone Receives help from: Patient does not need help from others at baseline Type of home: House Home layout: Two levels, Steps to enter , 1 flight of stairs inside home with rails, Able to live on main level with bedroom/bathroom access, Comment: Coming from driveway, pt has 3-4 steps down to navigate to front door entrance with no railing present. Pt reports using the stone wall located on the R side of home to assist with negotiating steps. Bathroom layout: Tub/shower unit, Walk in shower, Raised toilet , Standard toilet , Comment: Pt's main bathroom that he utilizes is tub/shower with HH shower head, shower chair, mounted grab bar, andhigh toilet. Home equipment available: grab bars located in tub/shower, hand held shower, shower chair Functional Mobility PLOF: Patient reports being complete independent with all functional mobility prior to onset. Activities of Daily Living PLOF: Patient reports being complete independent with all ADL's prior toonset. Does the patient have a recent history of falls?: No Objective Vitals Pre-intervention vitals Heart rate: 62 beats per minute Blood pressure: 106/66 mmHg Post-intervention vitals Heart rate: 100 beats per minute Blood pressure: 139/77 mmHg Range of Motion Assessment Functional with limitations: Patient is able to use bilateral upper extremities for reaching/grasping/holding objects at or below shoulder level, but not above Strength Assessment Fair: Patient is able to use arms to pull, push, and hold minimal resistance at elbow and wrist, but shows increased weakness at shoulders and is unable to take resistance Comment: pt demonstrates B UE strength (proximal/distal) 4-/5. Coordination/Sensation Coordination: The patient's gross motor coordination is intact. The patient's fine motor coordination is intact. [id number]: LUE (4) Normal performance, RUE (4) Normal performance Sensation: Patient reports no sensation deficits. Bed Mobility Supine to sit: Standby assist Sit to supine: Standby assist Transfers Sit to stand:Contact guard Stand to sit:Contact guard Side steps: Contact guard ADLs Feeding:Standby Assist Grooming:Standby Assist Bathing:ROBERTO-Unable to assess Upper body dressing:Standby Assist Lower body dressing:Moderate Assistance Toileting:Standby Assist Outcome Measures [facility] Daily Living Functional Assessment How much help from another person does the patient currently need: Putting on and taking off regular lower body clothing? 3 Bathing, including washing, rinsing, and drying? 3 Toileting, including using toilet, bedpan or urinal? 3 Putting on and taking off regular upper body clothing? 3 Taking care of personal grooming such as brushing teeth? 4 Eating meals? 4 1=Total/Unable (Total assist/Dependent) 2=A lot (Maximal/Moderate assist) 3=A little (Minimal/Contact guard/Supervision/Setup) 4=None (Modified independent/Independent) The patient's [facility] raw score is 20. The patient currently has 38.32% functional impairment. Clinicians are most likely to recommend inpatient/SNF/terminal carman care for patients with scores between 6-17, home health for scores between 18-22, and routine discharge for scores above 22. Balance Static sitting balance:Good: Patient able to maintain balance without handheld support; limited postural sway Dynamic sitting balance:Fair: Patient accepts minimal challenge; able to maintain balance while turning head/trunk Static standing balance:Fair: Patient able to maintain balance with handheld support, may require occasional minimal assistance Dynamic standing balance:Fair: Patient accepts minimal challenge; able to maintain balance while turning head/trunk Activity Tolerance Patient limited with activity/intervention due to pain, fatigue, deconditioning, and weakness Treatment OT has arrived to patient's room with pt presenting supine at bed level. Pt currently agreeable to receipt of occupational therapy evaluation/treatment today. Pt assessed for bed mobility with pt able to perform with SBA. Pt able to utilize bed railing and negotiate Les to EOB with reported pain level of 7/10. Pt instructed on log roll technique; however, pt demonstrated difficulty with performing. Pt able to maintain static sitting balance with SBA and hand placement at EOB. Pt vitals taken while seated at EOB with BP and HR within parameters to continue. Pt able to perform sit>stand at RW level with CGA today. Pt able to perform side-steps to HOB with CGA. Pt able to ascend to EOB withCGA and perform sit>supine back to bed with SBA. OT educated pt post treatment concerning home modification recommendations as OT recommended placement of railing for management of steps. OT instructed pt concerning the importance of engaging in HH if needed in order to identify barriers that may impact pt's ability to safely and independently reside in home environment. Pt currently agreeableto home health versus inpatient rehab at this time. Pt positioned in bed comfortably with SCDs placed and nursing notified concerning pain level. Assessment Assessment Prior to admission, patient reports that he resided in 2-level home with 3-4 steps to navigate downto front door. Pt reported that he did not use his stairs to access upstairs. Pt reported that he was independent with all self-care including functional mobility. Pt reports that he was able to drive in the community in order to take care of errands. Currently the patient presents with defiicts with abdominal discomfort, UE strength, coordination, activity tolerance in sitting/standing, dynamic/static standing balance, and safety. These deficits currently impact the patient's ability to perform ADLs and functional mobility, putting them at an increased risk for increased falls, decreased quality of life, poor outcomes, further functional decline, further decreased strength, increased caregiver burden. The patient has good rehab potential and would benefit from OT services to address the aforementioned functional deficits in order to return to prior level of function. The patient's current AMPAC score of 20 would indicate that the patient will likely be appropriate for home with home health and family support post hospitalization. Plan Recommendations Discharge recommendations: Discharge home/prior living situation. Patient would benefit from continued therapy services. DME recommendations: Comment: OT has recommended placement of railing for steps to enter home. Treatment Plan: Adaptive equipment training, ADL training, Coordination training, Co-treat with physical therapy, DME recommendations , Functional mobility/transfer training, Home modification recommendations , Patient/family/caregiver education, Safety training, Strengthening OT Frequency/Duration: 3x/week for 14 days Goals Bathing:sponge bath seated with modified independence. Lower body dressing: donning and doffing lower body clothing with modified independence. Toileting: toileting with modified independence. Functional transfers: stand pivot transfer with supervision. Target Date: 04/24/2025 Goals were discussed with patient Education Patient educated on safety, use of call light, role of occupational therapy, patient's plan of care, ADLs, functional mobility, adaptive equipment and following, they were able to verbalize understanding, nod head to understanding. Interdisciplinary Communication Following treatment, therapist communicated with nursing regarding patient's performance during therapy session, patient's level of assistance with transfers for nursing mobility. Patient Disposition Upon Leaving Patient disposition upon leaving: Supine in bed, All needs met and within reach, Call light/pull cord in reach, Nursing aware/notified, Yellow non slip socks donned If this patient discharges prior to next therapy session, this note serves as the patient's discharge summary. Electronically signed by CANDIE Gilbert/David - 04/10/2025 - 3:57 PM EDT OT Evaluation Completed * Marilia Campos RN - 04/10/2025 1:17 PM EDTSummary: Ostomy education Images from the original note were not included. 04/10/25 0842 Ostomy (Stool) RLQ No Date First Assessed or Time First Assessed found. Location: RLQ Ostomy Status New;Moist;Functioning Stoma Color Red Peristomal Skin Other (comment) (ROBERTO) Output (mL) (stool noted in pouch) Wound care team consulted for education regarding new ileostomy. Upon arrival patient resting on Katherine support surface, agreeable to assessment. Patient reported not feeling well and preferred to receive education tomorrow. [facility] RN left Darlin ileostomy folder with patient. Patient currently in aone piece Darlin pouching system. Will provide follow-up visits for continuing education. Stoma assessment as above. Please contact wound/ostomy team if unable to maintain ostomy seal. * Chaplain Alireza - 04/10/2025 11:55 AM EDT Spiritual Care Progress Note Intensive Care Patient in bed, alert. Patient has a strong, personal Gnosticism jil. He has 3 children and reportedly is going through the divorce of a 15 year marriage. Participated in a spiritual conversation, provided spiritual support and information about appointing a Health Care Surrogate. Chaplain Alireza 04/10/2025 1:06 PM * Lorelei Perdue, PT - 04/10/2025 10:20 AM EDT Images from the original note were not included. Inpatient Physical Therapy Initial Evaluation Patient Name: Levar Rand Date of : 1960 Date of Evaluation: 04/10/25 In Time 1020 Out Time 1103 Session Duration 43 minutes Time spent for nursing collaboration, chart and systems review, and clinical reasoning. 10 minutes Total Time 53 minutes Pt is a 65 y.o. 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 04/09/2025 Pre-op Diagnosis: Recurrent complicated diverticulitis with colovesicular fistula Status post previous Acosta's in 2011 with subsequent reversal and incisional hernia repair in 2013 Post-op Diagnosis: Same Procedure: OPEN REDO LOW ANTERIOR RESECTION WITH TAKEDOWN OF COLOVESICAL FISTULA DIVERTING LOOP ILEOSTOMY VENTRAL HERNIA REPAIR EXPLANT OF ABDOMINAL WALL MESH LYSIS OF ADHESIONS CYSTOSCOPY WITH URETERAL LINDA Past Medical History: Diagnosis Date Anxiety CAD (coronary artery disease) Colovesical fistula Depression Diabetes (HCC) High blood pressure High cholesterol Hypertension Kawasaki disease (HCC) Vitamin D deficiency Past Surgical History: Procedure Laterality Date COLON SURGERY patient stated he had colon surgery (colostomy with reversal) CORONARY ANGIOPLASTY WITH STENT PLACEMENT CORONARY ARTERY BYPASS GRAFT HAND SURGERY Bilateral HERNIA REPAIR General Visit type: Initial Evaluation Approved by: Nurse Morales Patient Disposition Upon Entry: Supine in bed, Call Light/Pull Cord in reach, All needs met and within reach, Nursing aware/notified, HOB >30 degrees, Side rails up Patient Verified By: Name and Date of Assisted by: cardiovascular tech Precautions Weight-Bearing Status: No Restrictions Precautions: Fall risk Isolation Precautions: Standard Lines, tubes, drains, airway: arterial line, torres catheter, WOLF drain, NG tube, ostomy , peripheralIV, telemetry Subjective Subjective: Patient agreeable to physical therapy evaluation and treatment. Patient goal: Pt wants to be able to return to living independently Pain Yes. 0-10 SCALE Pain location: abdominal pain 8/10. Pain intervention: Repositioned Nurse notified Ambulation/increased activity. Response to intervention: Gradually improving Cognition Overall cognitive status: Patient is awake and alert, attending to directions appropriately, demonstrating good problem solving skills, and aware of any deficits or impairments, if present. Orientation Level: Oriented x4 Following commands: Follows all commands and directions without difficulty Home Living Lives with: Alone Home Type: House Home Layout: One level Stairs to enter: 4 step(s) Stairs inside home: none Home Equipment: None Functional Mobility PLOF: Patient reports being complete independent with all functional mobility prior to onset. Activities of Daily Living PLOF: Patient reports being complete independent with all ADL's prior toonset. Fall History: No, patient denies any falls over the last 6 months. Objective Vitals Pre-intervention vitals Heart rate: 77 beats per minute Blood pressure: 107/58 mmHg SpO2: 99% O2: RA Post-intervention vitals Heart rate: 81 beats per minute Blood pressure: 112/60 mmHg SpO2: 92% O2 : RA Basic Strength Assessment B UE 4+/5 B LE 4/5 Range of Motion Assessment WFL for all extremities Sensation Impaired. Light touch. Location: B feet. 1 = Decreased, delayed response Coordination Coordination is intact and within normal limits. Functional Mobility Bed Mobility Supine to Sit: moderate assistance, 1-person assist, HOB elevated Sit to Supine: minimal assistance, 2-person assist, HOB flat Transfers Sit to Stand: minimal assistance, 2-person assist, gait belt used, rolling walker used Stand to Sit: minimal assistance, 2-person assist, gait belt used, rolling walker used Gait Unable to assess due to dizziness, fatigue, and weakness Stair Management Not addressed today. Focus of treatment today on strengthening exercises and improving activity tolerance. Wheelchair Mobility Not addressed today. Focus of treatment today on strengthening exercises and improving activity tolerance. Outcome Measures -[facility] Basic Mobility Inpatient Short Form How much difficulty does the patient currently have: Turning over in bed (including adjusting bedclothes, sheets, and blankets)? (1) Total/Unable (not able to do the activity or can only perform the activity using assistive devices or requires assistance from another person, including supervision or cueing for safety) Sitting down on and standing up from a chair with arms (e.g., wheelchair, bedside commode, etc.)? (1) Total/Unable (not able to do the activity or can only perform the activity using assistive devices or requires assistance from another person, including supervision or cueing for safety) Moving from lying on back to sitting on side of bed? (1) Total/Unable (not able to do the activity or can only perform the activity using assistive devices or requires assistance from another person,including supervision or cueing for safety) How much help from another person does the patient currently need: Moving to and from a bed to a chair (including a wheelchair)? (3) A little (Minimal/Contact guard/Supervision/Setup) Need to walk in hospital room? (3) A little (Minimal/Contact guard/Supervision/Setup) Climbing 3-5 steps with a railing? (2) A lot (Maximal/Moderate assist) Score Raw score=11 t-Scale score=33.86 Standard error=3.22 [facility] 0-100%=72.57% MDC=4.72 A raw score of >= 16 is significantly associated with increased odds of discharge to home in addition to consideration made for the patient's cognition and social determinants of health. Balance Static/dynamic sitting and static/dynamic standing balance grades Balance Grade Sitting Static Good - patient able to maintain balance without handhold support, limited postural sway Sitting Dynamic Fair - patient accepts minimal challenge; able to maintain balance while turning head/trunk Standing Static Fair - patient able to maintain balance with handhold support; may require occasional minimal assistance Standing Dynamic Fair - patient accepts minimal challenge; able to maintain balance while turning head/trunk Activity Tolerance Patient limited with activity/intervention due to fatigue, deconditioning, and weakness Treatment Pt instructed in and facilitated with supine therex of : AP, hip abd/add, heel slides, QS, and GS Pt was mod ast for supine-sit to EOB Pt was min ast of 2 for sit-stand with gt belt and rwx Pt MIP and took steps to HOB with min asst of 2 with gt belt and rwx Pt was min asst of 2 to return supine Pt was positioned for comfort with needs in reach Assessment At baseline, patient was independent with ADLs, was independent with functional mobility. Patient presenting with decreased activity tolerance, generalized weakness with functional activities, fatigue with physical exertion, and pain limiting function. Because of this, patient would have difficultywith independently performing all ADL's . These functional limitations put the patient at an increased risk for loss of independence with functional mobility and activities of daily living, complications due to immobilization, and deconditioning. Pt participated well with PT with pt stating he feltbetter after working with PT . Patient would benefit from skilled physical therapy services during length of stay for strengthening, endurance training to improve activity tolerance, gait training, transfer training, progression of mobility, and assistive device training. Problems: Decreased functional mobility, Decreased gait tolerance, Decreased strength, Decreased activity tolerance, Impaired dynamic balance, Pain Rehab potential: Good for stated goals Plan Treatment Plan: Therapeutic Exercise, Therapeutic Activity, Gait Training, Transfer Training, Balance Training, Stair Training, Strengthening PT Frequency/Duration: 5x/week for 14 days Recommendations Discharge recommendations: Discharge recommendations pending progression of acute hospital stay secondary to the patient's medical status DME recommendations: Patient would benefit from the use of a Rolling walker upon discharge. Per thepatient, the patient does not have access to the recommended DME/adaptive equipment. Goals [id number]: By the target date, patient will perform [id number]-we-[id number] with modified independence, utilizing bed railing, to improve independence with bed mobility and improve overall comfort and well-being. [id number]: By the target date, patient will perform sit to stand with modified independence and rolling walker to improve independence with functional mobility, decrease risk of falling, improve ability to participate in activities of daily living that require standing, and return to prior levelof function. Gait: Patient will ambulate 200'' with stand by assistance and utilizing rolling walker in order toincrease independence with ambulation and improve balance with ambulation and decrease risk of falling Stairs: By the target date, patient will negotiate 4 step(s), with a reciprocal pattern, utilizing no assistive device and stand by assistance, to demonstrate ability to safely negotiate stairs at home. Target Date: 04/24/2025 Goals were discussed with patient Education Patient educated on safety, use of call button, role of physical therapy, plan of care, and therapeutic exercise and following, they were able to verbalize understanding. No further questions or concerns stated. Interdisciplinary Communication Following treatment, therapist communicated with nursing by completing communication whiteboard in room, regarding patient's performance during physical therapy session, and regarding patient's levelof assistance needed during transfers for nursing mobility. Patient Disposition Upon Leaving Supine in bed, Call Light/Pull Cord in reach, All needs met and within reach, Nursing aware/notified, HOB >30 degrees, Side rails up If this patient discharges prior to next therapy session, this note serves as the patient's discharge summary. Electronically signed by Lorelei Perdue, PT - 04/10/25 - 1:54 PM EDT PT Evaluation Completed * Lizzy Kramer MD - 04/10/2025 10:17 AM EDT Subjective Patient lethargic in pain Not feeling well Last Recorded Vitals Blood pressure 104/70, pulse 71, temperature 99.1 ??F (37.3 ??C), resp. rate 17, height 1.753 m (5'9.02 ), weight 80.5 kg (177 lb 6.1 oz), SpO2 100%. Physical Exam Head atraumatic normocephalic Pupils round and reactive Eyes no conjunctival injection or discharge Ears no discharge Nose no bleeding or discharge Mouth dry Neck supple full range of motion Chest diminished in the bilaterally no wheeze crackle rhonchi Heart S1 and S2 healed regular rate Abdomen diminished bowel sounds Extremities no edema erythema Neurological patient alert awake Psychiatric anxiety Skin no apparent rashes Endocrine no thyromegaly tenderness GEN patient in bed mild distress Labs: Results for orders placed or performed during the hospital encounter of 04/09/25 (from the past 24 hours) Glucose, Nova Meter Status: Abnormal Collection Time: 04/09/25 11:26 AM Result Value Ref Range POC-GLUCOSE 161 (H) 70 - 110 mg/dL Generation Technician [id number] CALCIUM Ionized Status: Abnormal Collection Time: 04/09/25 8:18 PM Result Value Ref Range Calcium Ionized 1.10 (L) 1.12 - 1.32 mmol/L CBC with automated diff Status: Abnormal Collection Time: 04/09/25 8:18 PM Result Value Ref Range WBC 22.1 (H) 4.2 - 9.1 K/??L RBC 3.78 (L) 4.63 - 6.08 M/??L Hemoglobin 10.5 (L) 13.7 - 17.5 GM/DL Hematocrit 31.8 (L) 40.1 - 51.0 % MCV 84 79 - 92 fL MCH 27.8 25.7 - 32.2 pg MCHC 33.0 32.3 - 36.5 GM/DL RDW 14.7 (H) 11.6 - 14.4 % Platelets 275 140 - 375 K/CU MM MPV 8.3 (L) 9.4 - 12.4 fL % Neutros 89 (H) 34 - 68 % % Lymphs 3 (L) 22 - 53 % % Monos 8 5 - 12 % % Eos 0 (L) 1 - 7 % % Baso 0 0 - 1 % NRBC Absolute <0.01 0 - 0.012 K/ul # Neutros 19.67 (H) 1.78 - 5.38 K/??L # Lymphs 0.58 (L) 1.32 - 3.57 K/??L # Monos 1.75 (H) 0.30 - 0.82 K/??L # Eos <0.03 (L) 0.04 - 0.54 K/ L # Baso 0.03 0.01 - 0.08 K/??L Immature Granulocytes-Relative 0.50 (H) 0.01 - 0.43 % # IG 0.11 (H) 0.00 - 0.03 K/uL Comprehensive metabolic panel Status: Abnormal Collection Time: 04/09/25 8:18 PM Result Value Ref Range Sodium 138 136 - 145 meq/L Potassium 4.7 3.4 - 5.1 meq/L Chloride 109 98 - 112 meq/L CO2 18 (L) 22 - 29 meq/L Calcium 8.2 (L) 8.4 - 10.2 mg/dL Glucose 168 (H) 82 - 115 mg/dL BUN 10.6 8.4 - 25.7 mg/dL Creatinine 1.00 0.72 - 1.25 mg/dL BUN/Creatinine 11 8 - 20 eGFR (mL/min/1.73m2) 83 >=60 mL/min/1.73m2 Albumin 3.1 (L) 3.5 - 5.0 g/dL Alkaline Phosphatase 55 40 - 150 U/L ALT <7 <=45 U/L AST 10 (L) 11 - 34 U/L Total Bilirubin 0.7 0.2 - 1.2 mg/dL Protein, Total 6.1 (L) 6.4 - 8.3 g/dL Globulin 3.0 2.5 - 4.1 g/dL Anion Gap 16 (H) 4 - 12 A/G Ratio 1.0 0.7 - 1.9 Osmolality Calc 278.8 mOsm/kg Lactic Acid with reflex (SJ) Status: Normal Collection Time: 04/09/25 8:18 PM Result Value Ref Range Lactic Acid Level (mmol/L) 1.1 0.5 - 2.2 mmol/L Magnesium Status: Normal Collection Time: 04/09/25 8:18 PM Result Value Ref Range Magnesium 1.7 1.6 - 2.6 mg/dL Phosphorus Status: Normal Collection Time: 04/09/25 8:18 PM Result Value Ref Range Phosphorus 3.5 2.5 - 4.5 mg/dL CBC with automated diff Status: Abnormal Collection Time: 04/10/25 3:22 AM Result Value Ref Range WBC 16.0 (H) 4.2 - 9.1 K/??L RBC 3.39 (L) 4.63 - 6.08 M/??L Hemoglobin 9.3 (L) 13.7 - 17.5 GM/DL Hematocrit 29.0 (L) 40.1 - 51.0 % MCV 86 79 - 92 fL MCH 27.4 25.7 - 32.2 pg MCHC 32.1 (L) 32.3 - 36.5 GM/DL RDW 14.8 (H) 11.6 - 14.4 % Platelets 241 140 - 375 K/CU MM MPV 8.7 (L) 9.4 - 12.4 fL Nucleated Red Blood Cell 0.0 0 - 0.2 % % Neutros 82 (H) 34 - 68 % % Lymphs 6 (L) 22 - 53 % % Monos 11 5 - 12 % % Eos 0 (L) 1 - 7 % % Baso 0 0 - 1 % NRBC Absolute <0.01 0 - 0.012 K/ul # Neutros 12.81 (H) 1.78 - 5.38 K/??L # Lymphs 0.98 (L) 1.32 - 3.57 K/??L # Monos 1.72 (H) 0.30 - 0.82 K/??L # Eos <0.03 (L) 0.04 - 0.54 K/ L # Baso <0.03 0.01 - 0.08 K/ L Immature Granulocytes-Relative 0.60 (H) 0.01 - 0.43 % # IG 0.10 (H) 0.00 - 0.03 K/uL Comprehensive metabolic panel Status: Abnormal Collection Time: 04/10/25 3:22 AM Result Value Ref Range Sodium 137 136 - 145 meq/L Potassium 4.5 3.4 - 5.1 meq/L Chloride 108 98 - 112 meq/L CO2 20 (L) 22 - 29 meq/L Calcium 8.1 (L) 8.4 - 10.2 mg/dL Glucose 146 (H) 82 - 115 mg/dL BUN 10.9 8.4 - 25.7 mg/dL Creatinine 0.84 0.72 - 1.25 mg/dL BUN/Creatinine 13 8 - 20 eGFR (mL/min/1.73m2) 96 >=60 mL/min/1.73m2 Albumin 2.8 (L) 3.5 - 5.0 g/dL Alkaline Phosphatase 50 40 - 150 U/L ALT <7 <=45 U/L AST 10 (L) 11 - 34 U/L Total Bilirubin 0.8 0.2 - 1.2 mg/dL Protein, Total 5.7 (L) 6.4 - 8.3 g/dL Globulin 2.9 2.5 - 4.1 g/dL Anion Gap 14 (H) 4 - 12 A/G Ratio 1.0 0.7 - 1.9 Osmolality Calc 275.8 mOsm/kg Magnesium Status: Normal Collection Time: 04/10/25 3:22 AM Result Value Ref Range Magnesium 1.7 1.6 - 2.6 mg/dL Basic Metabolic Panel Status: Abnormal Collection Time: 04/10/25 3:22 AM Result Value Ref Range Sodium 137 136 - 145 meq/L Potassium 4.5 3.4 - 5.1 meq/L CO2 20 (L) 22 - 29 meq/L Chloride 108 98 - 112 meq/L Glucose 146 (H) 82 - 115 mg/dL BUN 10.9 8.4 - 25.7 mg/dL Creatinine 0.84 0.72 - 1.25 mg/dL BUN/Creatinine 13 8 - 20 Calcium 8.1 (L) 8.4 - 10.2 mg/dL Anion Gap 14 (H) 4 - 12 eGFR (mL/min/1.73m2) 96 >=60 mL/min/1.73m2 Osmolality Calc 275.8 mOsm/kg Glucose, Nova Meter Status: Abnormal Collection Time: 04/10/25 5:39 AM Result Value Ref Range POC-GLUCOSE 128 (H) 70 - 110 mg/dL Generation Technician [id number] XR chest AP portable Narrative: PORTABLE CHEST 04/09/2025 8:38 PM HISTORY: Acute shortness of breath. COMPARISON: March 12, 2025. FINDINGS: The heart is normal in size . The mediastinum is unremarkable . There are mild increased interstitial markings. There is no significant pleural effusion. There is no pneumothorax . Status post median sternotomy. A new nasogastric tube tip terminates in the stomach. The side port terminates at the gastroesophageal junction. Impression: Interval placement of nasogastric tube. Side port terminates at the GE junction. Mild increased interstitial markings may represent mild edema. Images reviewed, interpreted, and dictated by Dr. Jeanie Melton. Transcribed by Jean Pierre Hughes PA-C 04/09/2025 Procedure: OPEN REDO LOW ANTERIOR RESECTION WITH TAKEDOWN OF COLOVESICAL FISTULA DIVERTING LOOP ILEOSTOMY VENTRAL HERNIA REPAIR EXPLANT OF ABDOMINAL WALL MESH LYSIS OF ADHESIONS CYSTOSCOPY WITH URETERAL STENT INSERTION (Urology) Assessment #Colovesicular fistula: #Recurrent diverticulitis #Diabetes: #Hypertension: #Hyperlipidemia: #Tobacco use disorder: 04/10/2025 Plan IV Rocephin/Flagyl Labs In a.m. PT OT Infectious disease consult Discharge Planning: Patient remains sick in ICU * Enrique Lopez MD - 04/10/2025 8:30 AM EDT Consults PULMONARY AND CRITICAL CARE Consult Note Date of Service: 04/10/2025 Reason for Consult: For critical care management. Referring: Chantelle HPI: This is a 65 y.o. 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 He has had acosta's in 2011 and reversal and incisional hernia repair in 2013. He has been followed outpatient by Colorectal surgery due to concerns for colovesicular fistula immediately proximal to his anastomosis. He underwent Colonoscopy and CT scan and noted inflamed colovesicular fistula between the descending/sigmoid colon junction and the left urinary bladder with bladder wall thickening. There wasalso an abdominal midline ventral hernia containing nonobstructed bowel loops. He presented today for elective open lower anterior resection, takedown of colovesicular fistula, possible diverting loop ileostomy, ventral hernia repair and cystoscopy with temporary ureteral stents. He tolerated the procedure well and transferred to ICU for monitoring. Pulmonary has been consulted for ICU management. Daily progress note : 04/10: Patient was seen and examined today. During rounds patient was awake alert oriented time placeand person. Vitals reviewed stable. Labs and images reviewed, white cell count trending down, creatinine within normal. Chest x-ray from yesterday reviewed/interpreted independently showed no acute infiltrate. Discussed with the primary team at the bedside, and will transfer patient out of the ICU. PAST MEDICAL HISTORY: Past Medical History: Diagnosis Date Anxiety CAD (coronary artery disease) Colovesical fistula Depression Diabetes (HCC) High blood pressure High cholesterol Hypertension Kawasaki disease (HCC) Vitamin D deficiency PAST SURGICAL HISTORY: Past Surgical History: Procedure Laterality Date COLON SURGERY patient stated he had colon surgery (colostomy with reversal) CORONARY ANGIOPLASTY WITH STENT PLACEMENT CORONARY ARTERY BYPASS GRAFT HAND SURGERY Bilateral HERNIA REPAIR Past Surgical History: Procedure Laterality Date COLON SURGERY patient stated he had colon surgery (colostomy with reversal) CORONARY ANGIOPLASTY WITH STENT PLACEMENT CORONARY ARTERY BYPASS GRAFT HAND SURGERY Bilateral HERNIA REPAIR Allergies: No Known Allergies SOCIAL HISTORY: Social History Tobacco Use Smoking status: Every Day Types: Cigarettes Smokeless tobacco: Never Substance Use Topics Alcohol use: Never Drug use: Yes Types: Marijuana Comment: weekly FAMILY HISTORY: family history is not on file. Review of Systems Constitutional: Positive for malaise/fatigue. HENT: Negative. Eyes: Negative. Respiratory: Negative. Cardiovascular: Negative. Gastrointestinal: Positive for abdominal pain. Genitourinary: Negative. Musculoskeletal: Negative. Skin: Negative. Neurological: Positive for weakness. Psychiatric/Behavioral: The patient is nervous/anxious. Vital Signs Temp: [97.5 ??F (36.4 ??C)-99.1 ??F (37.3 ??C)] 99.1 ??F (37.3 ??C) Pulse: [67-90] 71 Resp: [11-49] 17 BP: (81-133)/(52-90) 104/70 Arterial Line BP 1: (76-137)/(45-79) 107/57 Current: Temp: 99.1 ??F (37.3 ??C) Pulse: 71 Resp: 17 BP: 104/70 SpO2: 100 % 24 Hour: BP Min: 81/52 Max: 133/87 Temp Min: 97.5 ??F (36.4 ??C) Max: 99.1 ??F (37.3 ??C) Pulse Min: 67 Max: 90 Resp Min: 11 Max: 49 SpO2 Min: 72 % Max: 100 % Height Min: 175.3 cm (5' 9.02 ) Max: 175.3 cm (5' 9.02 ) Weight Min: 80.5 kg (177 lb 6.1 oz) Max: 80.5 kg (177 lb 6.1 oz) Intake/Output: I/O last 3 completed shifts: In: 2383.3 [I.V.:1883.3; IV Piggyback:500] Out: 1120 [Urine:685; Drains:185; Blood:250] Physical Exam Constitutional: Appearance: He is ill-appearing. HENT: Head: Normocephalic and atraumatic. Mouth/Throat: Mouth: Mucous membranes are dry. Eyes: Pupils: Pupils are equal, round, and reactive to light. Cardiovascular: Rate and Rhythm: Normal rate and regular rhythm. Abdominal: Palpations: Abdomen is soft. Comments: Midline abdominal incision with dressing, left-sided WOLF drain with serosanguineous discharge, right-sided ostomy Musculoskeletal: General: No deformity. Skin: General: Skin is warm and dry. Capillary Refill: Capillary refill takes less than 2 seconds. Neurological: Mental Status: He is alert and oriented to person, place, and time. Psychiatric: Mood and Affect: Mood normal. Intake/Output: I/O last 3 completed shifts: In: 2383.3 [I.V.:1883.3; IV Piggyback:500] Out: 1120 [Urine:685; Drains:185; Blood:250] LABS Results for orders placed or performed during the hospital encounter of 04/09/25 (from the past 24 hours) Glucose, Nova Meter Status: Abnormal Collection Time: 04/09/25 11:26 AM Result Value Ref Range POC-GLUCOSE 161 (H) 70 - 110 mg/dL Generation Technician [id number] CALCIUM Ionized Status: Abnormal Collection Time: 04/09/25 8:18 PM Result Value Ref Range Calcium Ionized 1.10 (L) 1.12 - 1.32 mmol/L CBC with automated diff Status: Abnormal Collection Time: 04/09/25 8:18 PM Result Value Ref Range WBC 22.1 (H) 4.2 - 9.1 K/??L RBC 3.78 (L) 4.63 - 6.08 M/??L Hemoglobin 10.5 (L) 13.7 - 17.5 GM/DL Hematocrit 31.8 (L) 40.1 - 51.0 % MCV 84 79 - 92 fL MCH 27.8 25.7 - 32.2 pg MCHC 33.0 32.3 - 36.5 GM/DL RDW 14.7 (H) 11.6 - 14.4 % Platelets 275 140 - 375 K/CU MM MPV 8.3 (L) 9.4 - 12.4 fL % Neutros 89 (H) 34 - 68 % % Lymphs 3 (L) 22 - 53 % % Monos 8 5 - 12 % % Eos 0 (L) 1 - 7 % % Baso 0 0 - 1 % NRBC Absolute <0.01 0 - 0.012 K/ul # Neutros 19.67 (H) 1.78 - 5.38 K/??L # Lymphs 0.58 (L) 1.32 - 3.57 K/??L # Monos 1.75 (H) 0.30 - 0.82 K/??L # Eos <0.03 (L) 0.04 - 0.54 K/ L # Baso 0.03 0.01 - 0.08 K/??L Immature Granulocytes-Relative 0.50 (H) 0.01 - 0.43 % # IG 0.11 (H) 0.00 - 0.03 K/uL Comprehensive metabolic panel Status: Abnormal Collection Time: 04/09/25 8:18 PM Result Value Ref Range Sodium 138 136 - 145 meq/L Potassium 4.7 3.4 - 5.1 meq/L Chloride 109 98 - 112 meq/L CO2 18 (L) 22 - 29 meq/L Calcium 8.2 (L) 8.4 - 10.2 mg/dL Glucose 168 (H) 82 - 115 mg/dL BUN 10.6 8.4 - 25.7 mg/dL Creatinine 1.00 0.72 - 1.25 mg/dL BUN/Creatinine 11 8 - 20 eGFR (mL/min/1.73m2) 83 >=60 mL/min/1.73m2 Albumin 3.1 (L) 3.5 - 5.0 g/dL Alkaline Phosphatase 55 40 - 150 U/L ALT <7 <=45 U/L AST 10 (L) 11 - 34 U/L Total Bilirubin 0.7 0.2 - 1.2 mg/dL Protein, Total 6.1 (L) 6.4 - 8.3 g/dL Globulin 3.0 2.5 - 4.1 g/dL Anion Gap 16 (H) 4 - 12 A/G Ratio 1.0 0.7 - 1.9 Osmolality Calc 278.8 mOsm/kg Lactic Acid with reflex (SJ) Status: Normal Collection Time: 04/09/25 8:18 PM Result Value Ref Range Lactic Acid Level (mmol/L) 1.1 0.5 - 2.2 mmol/L Magnesium Status: Normal Collection Time: 04/09/25 8:18 PM Result Value Ref Range Magnesium 1.7 1.6 - 2.6 mg/dL Phosphorus Status: Normal Collection Time: 04/09/25 8:18 PM Result Value Ref Range Phosphorus 3.5 2.5 - 4.5 mg/dL CBC with automated diff Status: Abnormal Collection Time: 04/10/25 3:22 AM Result Value Ref Range WBC 16.0 (H) 4.2 - 9.1 K/??L RBC 3.39 (L) 4.63 - 6.08 M/??L Hemoglobin 9.3 (L) 13.7 - 17.5 GM/DL Hematocrit 29.0 (L) 40.1 - 51.0 % MCV 86 79 - 92 fL MCH 27.4 25.7 - 32.2 pg MCHC 32.1 (L) 32.3 - 36.5 GM/DL RDW 14.8 (H) 11.6 - 14.4 % Platelets 241 140 - 375 K/CU MM MPV 8.7 (L) 9.4 - 12.4 fL Nucleated Red Blood Cell 0.0 0 - 0.2 % % Neutros 82 (H) 34 - 68 % % Lymphs 6 (L) 22 - 53 % % Monos 11 5 - 12 % % Eos 0 (L) 1 - 7 % % Baso 0 0 - 1 % NRBC Absolute <0.01 0 - 0.012 K/ul # Neutros 12.81 (H) 1.78 - 5.38 K/??L # Lymphs 0.98 (L) 1.32 - 3.57 K/??L # Monos 1.72 (H) 0.30 - 0.82 K/??L # Eos <0.03 (L) 0.04 - 0.54 K/ L # Baso <0.03 0.01 - 0.08 K/ L Immature Granulocytes-Relative 0.60 (H) 0.01 - 0.43 % # IG 0.10 (H) 0.00 - 0.03 K/uL Comprehensive metabolic panel Status: Abnormal Collection Time: 04/10/25 3:22 AM Result Value Ref Range Sodium 137 136 - 145 meq/L Potassium 4.5 3.4 - 5.1 meq/L Chloride 108 98 - 112 meq/L CO2 20 (L) 22 - 29 meq/L Calcium 8.1 (L) 8.4 - 10.2 mg/dL Glucose 146 (H) 82 - 115 mg/dL BUN 10.9 8.4 - 25.7 mg/dL Creatinine 0.84 0.72 - 1.25 mg/dL BUN/Creatinine 13 8 - 20 eGFR (mL/min/1.73m2) 96 >=60 mL/min/1.73m2 Albumin 2.8 (L) 3.5 - 5.0 g/dL Alkaline Phosphatase 50 40 - 150 U/L ALT <7 <=45 U/L AST 10 (L) 11 - 34 U/L Total Bilirubin 0.8 0.2 - 1.2 mg/dL Protein, Total 5.7 (L) 6.4 - 8.3 g/dL Globulin 2.9 2.5 - 4.1 g/dL Anion Gap 14 (H) 4 - 12 A/G Ratio 1.0 0.7 - 1.9 Osmolality Calc 275.8 mOsm/kg Magnesium Status: Normal Collection Time: 04/10/25 3:22 AM Result Value Ref Range Magnesium 1.7 1.6 - 2.6 mg/dL Basic Metabolic Panel Status: Abnormal Collection Time: 04/10/25 3:22 AM Result Value Ref Range Sodium 137 136 - 145 meq/L Potassium 4.5 3.4 - 5.1 meq/L CO2 20 (L) 22 - 29 meq/L Chloride 108 98 - 112 meq/L Glucose 146 (H) 82 - 115 mg/dL BUN 10.9 8.4 - 25.7 mg/dL Creatinine 0.84 0.72 - 1.25 mg/dL BUN/Creatinine 13 8 - 20 Calcium 8.1 (L) 8.4 - 10.2 mg/dL Anion Gap 14 (H) 4 - 12 eGFR (mL/min/1.73m2) 96 >=60 mL/min/1.73m2 Osmolality Calc 275.8 mOsm/kg Glucose, Nova Meter Status: Abnormal Collection Time: 04/10/25 5:39 AM Result Value Ref Range POC-GLUCOSE 128 (H) 70 - 110 mg/dL Generation Technician [id number] No results found for: PT , INR , PTT CHEM7: Sodium Date Value Ref Range Status 04/10/2025 137 136 - 145 meq/L Final 04/10/2025 137 136 - 145 meq/L Final Potassium Date Value Ref Range Status 04/10/2025 4.5 3.4 - 5.1 meq/L Final 04/10/2025 4.5 3.4 - 5.1 meq/L Final Chloride Date Value Ref Range Status 04/10/2025 108 98 - 112 meq/L Final 04/10/2025 108 98 - 112 meq/L Final CO2 Date Value Ref Range Status 04/10/2025 20 (L) 22 - 29 meq/L Final 04/10/2025 20 (L) 22 - 29 meq/L Final BUN Date Value Ref Range Status 04/10/2025 10.9 8.4 - 25.7 mg/dL Final 04/10/2025 10.9 8.4 - 25.7 mg/dL Final Creatinine Date Value Ref Range Status 04/10/2025 0.84 0.72 - 1.25 mg/dL Final 04/10/2025 0.84 0.72 - 1.25 mg/dL Final eGFR (mL/min/1.73m2) Date Value Ref Range Status 04/10/2025 96 >=60 mL/min/1.73m2 Final 04/10/2025 96 >=60 mL/min/1.73m2 Final Calcium Date Value Ref Range Status 04/10/2025 8.1 (L) 8.4 - 10.2 mg/dL Final 04/10/2025 8.1 (L) 8.4 - 10.2 mg/dL Final Lab Results Component Value Date AST 10 (L) 04/10/2025 ALT <7 04/10/2025 No results for input(s): POCGLU in the last 72 hours. No results for input(s): POCPH , POCPCO2 , POCPO2 , POCABG in the last 72 hours. Invalid input(s): POCSAT , POCART , ARTPOC Microbiology: Microbiology Results (last 7 days) No results found for the last 168 hours. Radiology Results (last day) Procedure Component Value Units Date/Time XR chest AP portable [[id number]] Collected: 04/10/25 0747 Order Status: Completed Updated: 04/10/25 0750 Narrative: PORTABLE CHEST 04/09/2025 8:38 PM HISTORY: Acute shortness of breath. COMPARISON: March 12, 2025. FINDINGS: The heart is normal in size . The mediastinum is unremarkable . There are mild increased interstitial markings. There is no significant pleural effusion. There is no pneumothorax . Status post median sternotomy. A new nasogastric tube tip terminates in the stomach. The side port terminates at the gastroesophageal junction. Impression: Interval placement of nasogastric tube. Side port terminates at the GE junction. Mild increased interstitial markings may represent mild edema. Images reviewed, interpreted, and dictated by Dr. Jeanie Melton. Transcribed by Jean Pierre Hughes PA-C No valid procedures specified. ASSESSMENT: Pulmonary On Room Air Tobacco Abuse Marijuana Abuse Neurology: Anxiety/Depression Marijuana Abuse Cardiology: Hypotension post procedure; mild; received Albumin and IVF H/O CAD/CABG and Cardiac stents, HTN/HLD Infectious disease: Normal WBC/No fevers Nephrology: Stable Bun/Cr S/P Cystoscopy with Bilateral ureteral stents Gastroenterology: Recurrent Complicated Diverticulitis with Colovesicular Fistula H/O of Star's procedure with subsequent reversal and incisional hernia repair in 2019 S/P Open Redo LAR with take down of colovesicular fistula with diverting loop illeostomy as well ascystoscopy and bilateral ureteral stent placement 04/09/25 Endocrine: DM Hematology: Stable H/H/platelets PLAN: Supplemental O2 prn for O2 sats < 92% Chest x-ray was done, reviewed/interpreted independently, no acute infiltrate Duonebs prn Encourage IS/FVD Hemodynamic support MAP > 65--stable S/P Albumin IVF LR @ 75ml/hr Antibx Flagyl and ceftriaxone per primary. Nutrition: Defer to surgery. NG tube in place PT/OT Protonix/Lovenox Labs and images reviewed. Chart reviewed. Patient is awake alert oriented, vital stable. Discussed with the primary team, patient can be transferred out of the ICU. I Dr.Al Carter, have personally evaluated the patient and performed a [id number] diagnostic evaluation on this patient; I have Obtained history, performed physical examination, reviewed laboratory studies. I have independently interpreted chest images. I have actively directed the medical care, formulated diagnosis, and the plan of care. Patient requires a high complexity of decision making for assessment.Voice certified professional coder technology (Napartner) is used for dictation of this note and sound-alike words might be erroneously placed despite reviewing the note for accuracy. Errors in dictation may reflect use of voice recognition software and not all errors in certified professional coder may have been detected prior to signing. documented in this encounter H&P Notes * Rebekah Lockhart MD - 04/09/2025 7:21 AM EDT History of Present Illness History Of Present Illness Levar Rand is a 65 y.o. male who is well-known to me. I originally met him back in 2019 for. He had a past medical history seen for type 2 diabetes, hypertension, hypercholesterolemia as well as current smoking. In his past he had perforated diverticulitis with a Acosta's procedure back in 2011with subsequent reversal in that year. He eventually developed an incisional hernia and underwent open ventral hernia repair with Broughton-Pablo mesh in 2013. He redeveloped an incisional hernia and was originally sent to Dr. Kulwinder Ochoa however upon review of the CT scan there is noted signs concerning for colovesicular fistula immediately proximal to his anastomosis. I personally performed colonoscopy at that time which showed no signs of malignancy. There is a [place] anastomosis at 23 cm from the anal verge and what appeared to be a fistula immediately proximal to this. CT scan showed inflamed colovesicular fistula between the descending/sigmoid colon junction and the left urinary bladder with bladder wall thickening. There is also an abdominal midline ventral hernia containing nonobstructed bowel loops. We had plans to do surgery but he refused to follow-up in clinic and discussed this further so I assume that he found care elsewhere. He actually has not. He saw his bottle sorter for significant workup and had plans for pacemaker but due to this questionable fistula 1 of this taking care of prior to pacemaker placement. He then followed back in my clinic earlier this summer. We made plans for an open low anterior section, takedown of colovesicular fistula, possible diverting loop ileostomy, ventral hernia repair andcystoscopy with temporary ureteral stents. I did request an up-to-date CT scan. The patient continues due to cost. Due to the fact that he has ongoing symptoms from his colovesicular fistula and a CTscan from last year, I felt that we could be successful in his surgery. I did tell him that that was not my preferred approach but he wished to proceed anyways. Past Medical History He has a past medical history of Anxiety, CAD (coronary artery disease), Colovesical fistula, Depression, Diabetes (HCC), High blood pressure, High cholesterol, Hypertension, Kawasaki disease (HCC), and Vitamin D deficiency. Surgical History He has a past surgical history that includes Coronary artery bypass graft; Colon surgery; Hernia repair; Hand surgery (Bilateral); and Coronary angioplasty with stent. Social History He reports that he has been smoking cigarettes. He has never used smokeless tobacco. He reports current drug use. Drug: Marijuana. He reports that he does not drink alcohol. Family History His family history is not on file. Allergies Patient has no known allergies. Medications Current Outpatient Medications Medication Instructions aspirin 325 mg, oral, Every Night furosemide (LASIX) 20 mg, Once as needed Lipitor 40 mg, Every Night metFORMIN (GLUCOPHAGE) 500 mg, Every Night metoprolol succinate (TOPROL-XL) 50 mg, Every Night QUEtiapine (SEROQUEL) 200 mg, 2 times daily spironolactone (ALDACTONE) 25 mg, Every Night tiZANidine (ZANAFLEX) 4 mg, Every 8 hours PRN valsartan (DIOVAN) 40 mg, 2 times daily Review of Systems Review of Systems Constitutional: Negative. HENT: Negative. Eyes: Negative. Respiratory: Negative. Cardiovascular: Negative. Gastrointestinal: Negative for blood in stool, constipation, diarrhea, nausea and rectal pain. Endocrine: Negative. Genitourinary: Positive for dysuria. Musculoskeletal: Negative. Allergic/Immunologic: Negative. Neurological: Negative. Hematological: Negative. Psychiatric/Behavioral: Negative. Last Recorded Vitals Blood pressure 126/79, pulse 77, temperature 98.6 ??F (37 ??C), temperature source Temporal Artery,resp. rate 21, weight 80.5 kg (177 lb 6.1 oz), SpO2 98%. Physical Exam Vitals reviewed. HENT: Head: Normocephalic. Nose: Nose normal. Mouth/Throat: Mouth: Mucous membranes are moist. Eyes: Pupils: Pupils are equal, round, and reactive to light. Cardiovascular: Rate and Rhythm: Normal rate. Pulses: Normal pulses. Abdominal: Comments: Abdomen is soft, nontender, nondistended. Generous previous midline incision as well as colostomy. All well-healed. Inferior incisional hernia. Musculoskeletal: General: Normal range of motion. Cervical back: Normal range of motion. Skin: General: Skin is warm. Capillary Refill: Capillary refill takes less than 2 seconds. Neurological: General: No focal deficit present. Mental Status: He is alert. Psychiatric: Mood and Affect: Mood normal. Diagnostic Results Admission on 04/09/2025 Component Date Value Ref Range Status POC-GLUCOSE 04/09/2025 101 70 - 105 mg/dL Final POC Potassium 04/09/2025 4.3 3.5 - 4.9 mmol/L Final X-ray chest PA and lateral Narrative: TWO-VIEW CHEST 03/12/2025 3:31 PM HISTORY: Preoperative for fistulogram. COMPARISON: January 2018. FINDINGS: The heart is normal in size . The mediastinum is unremarkable . Diffuse interstitial changes are probably chronic . The lungs are otherwise clear . There is no pneumothorax . The osseous structures are unremarkable . The patient is status post median sternotomy. Impression: No acute cardiopulmonary process . Continued follow-up is recommended . Images reviewed, interpreted, and dictated by Dr. Roro Gaviria. Transcribed by Eri Gaston PA-C. Assessment & Plan Active Problems: There are no active Hospital Problems. 65-year-old male with multiple comorbidities including recent active smoking who has a personal history of perforated diverticulitis status post Acosta's procedure in 2011 with subsequent reversal with prior incisional hernia repair who is redeveloped issues with diverticulitis and colovesicular fistula. He presents today for an elective open low anterior resection, takedown of colovesicular fistula, possible diverting loop ileostomy, ventral hernia repair and cystoscopy with temporary ureteral stents. He voices understanding the risks and benefits associate with procedure including bleeding, infection, injury to surrounding structures including arteries, veins, nerves, small bowel, colon, spleen, ureter, bladder, risk of bladder leak, need for reoperation, heart attack, stroke, DVT, PE and . He also wishes to proceed. Electronically signed by: Rebekah Lockhart MD, 04/09/2025 at 7:21 AM documented in this encounter Procedure Notes * KASHIF Prieto - 04/11/2025 4:23 PM EDT Pre-Op Diagnosis: Left groin abscess Post-Op Diagnosis: Same Procedure Performed: CT guided Procedural PA: KASHIF Prieto Supervising Radiologist: Pete Gaviria MD Sedation: Versed and Fentanyl Findings: Technically successful Complications: No immediate complications EBL: Trace/ not significant Specimen(s) removed: 8 ml of fluid sent to the lab Full report to follow. Cosigned by A Pete Gaviria, MD at 04/11/2025 4:32 PM EDT * KASHIF Prieto - 04/11/2025 3:56 PM EDT ASA Mallampati score: Immediately prior to the procedure, I performed an ASA and or Mallampati assessment. ASA 2 - Patient with mild systemic disease with no functional limitations Mallampati score: II (hard and soft palate, upper portion of tonsils anduvula visible) KASHIF Prieto 3:57 PM Cosigned by Sally Gaviria MD at 04/11/2025 4:08 PM EDT documented in this encounter Consult Notes * Gunnar Swanson MD - 04/14/2025 10:59 AM EDTAssociated Order(s): FS_MODEL_IP IP CONSULT TO UROLOGY Urology Consult Note Reason for Consult: Vesicocutaneous fistula Chief Complaint: No chief complaint on file. History of Present Illness: Briefly, Levar Rand is a 65 y.o. male, admitted on: 04/09/2025 5:27 AM. Patient is now postop day 5 from challenging laparotomy for diverticular disease and feeling that a colovesical fistula was present. This proved to be very complex with involvement of a chronic abscess/infection of a previously placed inguinal mesh for hernia repair remotely. The colon was extirpated from the location and a connection of the mesh in the abscess cavity was made to the immediate vicinity of the bladder. There was no obvious bladder connection identified with assessment of bladder with distention of a methylene blue solution. He has had an ICU stay with gradual improvement yet upon removal of Torres catheter yesterday he has begun to have excess drainage of the urinary type from the pelvic placed drain but not from the intraperitoneal drain. CT scan on 04/11 is relatively unremarkable. It is noted that the pelvic drain that is draining urine currently is immediately sitting on the dome of the bladder. Past Medical History: Past Medical History: Diagnosis Date Anxiety CAD (coronary artery disease) Colovesical fistula Depression Diabetes (HCC) High blood pressure High cholesterol Hypertension Kawasaki disease (HCC) Vitamin D deficiency Past Surgical History: Past Surgical History: Procedure Laterality Date COLON SURGERY patient stated he had colon surgery (colostomy with reversal) CORONARY ANGIOPLASTY WITH STENT PLACEMENT CORONARY ARTERY BYPASS GRAFT CYSTOSCOPY,INSERTION URETERAL STENTS Bilateral 04/09/2025 Procedure: CYSTOSCOPY, WITH URETERAL STENT INSERTION; Surgeon: Rebekah Lockhart MD; Location: [facility]; Service: General Surgery; Laterality: Bilateral; HAND SURGERY Bilateral HERNIA REPAIR LAPAROSCOPY,LOW ANTERIOR RESECTION N/A 04/09/2025 Procedure: (OPEN LOW ANTERIOR RESECTION WITH TAKEDOWN OF COLOVESICAL FISTULA DIVERTING LOOP ILEOSTOMY VENTRAL HERNIA REPAIR AND CYSTOSCOPY AND STENTS) EXPLANTS OF MESH, REDO LAR,EX LAP LYSIS OF ADHESIONS; Surgeon: Rebekah Lockhart MD; Location: [facility]; Service: General Surgery; Laterality: N/A; Allergies: No Known Allergies Medications: Prior to Admission Medications: Medications Prior to Admission Medication Sig Dispense Refill Last Dose/Taking aspirin 325 MG EC tablet Take 1 tablet (325 mg total) by mouth nightly. Taking furosemide (LASIX) 20 MG tablet Take 1 tablet (20 mg total) by mouth daily as needed (for Edema/Swelling). 04/08/2025 metoprolol succinate (TOPROL-XL) 50 MG 24 hr tablet Take 1 tablet (50 mg total) by mouth nightly. 04/08/2025 at 7:30 PM QUEtiapine (SEROquel) 200 MG tablet Take 1 tablet (200 mg total) by mouth 2 (two) times daily. 04/08/2025 spironolactone (ALDACTONE) 25 MG tablet Take 1 tablet (25 mg total) by mouth nightly. 04/08/2025 tiZANidine (ZANAFLEX) 4 MG tablet Take 1 tablet (4 mg total) by mouth every 8 (eight) hours as needed for muscle spasms. 04/08/2025 valsartan (DIOVAN) 40 MG tablet Take 1 tablet (40 mg total) by mouth 2 (two) times daily This has replaced lisinopril--do NOT take both medications together . 04/08/2025 atorvastatin (LIPITOR) 40 MG tablet Take 1 tablet (40 mg total) by mouth nightly. metFORMIN (GLUCOPHAGE-XR) 500 MG 24 hr tablet Take 1 tablet (500 mg total) by mouth daily with dinner. Scheduled Medications: atorvastatin 40 mg oral Every Night 40 mg at 04/13/252041 cefTRIAXone 2 g intravenous Q24H IVPB Stopped at 04/14/25 1016 enoxaparin 40 mg subcutaneous Q24H 40 mg at 04/13/25 1700 hydrogen peroxide topical BID Given at 04/14/25 1041 [Held by provider] metoprolol succinate 50 mg oral Every Night metroNIDAZOLE 500 mg intravenous Q6H AWA IVPB Stopped at 04/14/25821 pantoprazole 40 mg intravenous Daily 40 mg at 04/14/25822 QUEtiapine 200 mg oral Every Night 200 mg at 04/13/252041 tiZANidine 4 mg oral TID 4 mg at 04/14/25822 Current Infusions: Current Facility-Administered Medications Medication Dose Route Frequency Provider Last Rate Last Admin atorvastatin (LIPITOR) tablet 40 mg 40 mg oral Every Night Ismaeel Mercedes, DO 40 mg at 04/13/252041 cefTRIAXone (ROCEPHIN) 2 g in sodium chloride 0.9 % (NS) 50 mL SHANELLE IVPB 2 g intravenous Q24H MD Pietro IVPB Stopped at 04/14/25 1016 dextrose 50% (D50W) injection 25 g 25 g intravenous Q15 Min PRN Ismaeel Mercedes, DO diazePAM (VALIUM) injection 2.5 mg 2.5 mg intravenous Q6H PRN Rebekah Lockhart MD 2.5 mg at 04/10/25 1518 enoxaparin (LOVENOX) syringe 40 mg 40 mg subcutaneous Q24H Rebekah Lockhart MD 40 mg at 04/13/25 1700 glucagon injection 1 mg 1 mg intraMUSCULAR Q15 Min PRN Ismaeel Mercedes, DO glucose chew tab 16 g 16 g oral Q15 Min PRN Ismaeel Mercedes, DO hydrogen peroxide external solution 3% topical BID Rebekah Lockhart MD Given at 04/14/25 1041 HYDROmorphone (DILAUDID) injection 0.4 mg 0.4 mg intravenous Q4H PRN Kulwinder Donovan MD lactated Ringer's infusion 75 mL/hr intravenous Continuous Rebekah Lockhart MD 75 mL/hr at 04/13/252133 75 mL/hr at 04/13/252133 [Held by provider] metoprolol succinate (TOPROL-XL) 24 hr tablet 50 mg 50 mg oral Every Night MD Inocencio metroNIDAZOLE (FLAGYL) IVPB 500 mg in sodium chloride 0.9 % 100 mL (premix) 500 mg intravenous Q6H [facility] Rebekah Lockhart MD IVPB Stopped at 04/14/25 08 morphine injection 4 mg 4 mg intravenous Q4H PRN Rebekah Lockhart MD 4 mg at 04/14/25 0823 nicotine (NICODERM CQ) 21 mg/24 hr patch 1 patch 1 patch transdermal Daily PRN Ismaeel Mercedes, DO ondansetron (ZOFRAN-ODT) disintegrating tablet 4 mg 4 mg oral Q8H PRN Rebekah Lockhart MD Or ondansetron (ZOFRAN) injection 4 mg 4 mg intravenous Q8H PRN Rebekah Lockhart MD oxyCODONE (ROXICODONE) immediate release tablet 5 mg 5 mg oral Q4H PRN Rebekah Lockhart MD 5 mg at04/14/25 1041 pantoprazole (PROTONIX) injection 40 mg 40 mg intravenous Daily Rebekah Lockhart MD 40 mg at 04/14/2523 QUEtiapine (SEROquel) tablet 200 mg 200 mg oral Every Night Ismaeel Mercedes, DO 200 mg at 04/13/252041 sodium chloride 0.9% (NS) bolus 1,000 mL intravenous PRN Rebekah Lockhart MD tiZANidine (ZANAFLEX) tablet 4 mg 4 mg oral TID Ismaeel Mercedes, DO 4 mg at 04/14/25 0823 Social History: Social History Socioeconomic History Marital status: Legally Spouse name: Not on file Number of children: Not on file Years of education: Not on file Highest education level: Not on file Occupational History Not on file Tobacco Use Smoking status: Every Day Types: Cigarettes Smokeless tobacco: Never Substance and Sexual Activity Alcohol use: Never Drug use: Yes Types: Marijuana Comment: weekly Sexual activity: Not on file Other Topics Concern Not on file Social History Narrative Not on file Social Drivers of Health Financial Resource Strain: Low Risk (04/09/2025) Financial Resource Strain Struggle to pay for basics: Not hard at all Food Insecurity: No Food Insecurity (04/09/2025) Food Insecurity Food run out past 12 months: Never true Food did not last past 12 months: Never true Transportation: No Transportation Needs (04/09/2025) Transportation Needs Transportation unreliable past 12 months: No Physical Activity: Inactive (04/09/2025) Physical Activity Minutes of exercise per week: 0 Social Connections: Unknown (04/09/2025) Family and Community Support Help with Day to Day Activities: I don't need any help Feeling Lonely or Isolated: 0 Living Arrangements: Alone Type of Residence: Private residence Family History: No family history on file. Review of Systems: Not obtainable Physical Exam: Robust reasonably healthy appearing man in no distress Abdomen is soft doughy and nontender, dressing is dry and intact Legs unremarkable Vitals: Hemodynamic parameters reviewed for last 24 hours. Blood pressure 104/67, pulse 79, temperature 98.4 ??F (36.9 ??C), resp. rate 22, height 1.753 m (5'9.02 ), weight 80.5 kg (177 lb 6.1 oz), SpO2 93%. 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 If output does not begin to diminish by tomorrow would recommend taking lower pelvic drain off of suction. Subsequent cystogram at a suitable point can be carried out. I do not feel that exploration with attempted repair at this point would be advisable. Signed: Gunnar Swanson MD complete 04/14/2025 10:59 AM * Jody Tong DO - 04/11/2025 12:43 PM EDT General Surgery Consult Note Reason for Consult Left inguinal fluid collection Chief Complaint Abdominal pain History of Present Illness 65 year old male admitted after open LAR with takedown of colovesical fistula, diverting loop ileostomy. He was found to have left inguinal hernia mesh during the procedure which was not previously known. On POD 2 patient was noted to be more tachycardic with labile blood pressure and fever to 100.2. CT abdomen/pelvis was ordered which shows a fluid collection in his left inguinal canal. General surgery was consulted for further evaluation. Past Medical History Patient has a past medical history of Anxiety, CAD (coronary artery disease), Colovesical fistula, Depression, Diabetes (HCC), High blood pressure, High cholesterol, Hypertension, Kawasaki disease (HCC), and Vitamin D deficiency. Past Surgical History Patient has a past surgical history that includes Coronary artery bypass graft; Colon surgery; Hernia repair; Hand surgery (Bilateral); Coronary angioplasty with stent; laparoscopy,low anterior resection (N/A, 04/09/2025); and CYSTOSCOPY,INSERTION URETERAL STENTS (Bilateral, 04/09/2025). Social History Patient reports that he has been smoking cigarettes. He has never used smokeless tobacco. He reports current drug use. Drug: Marijuana. He reports that he does not drink alcohol. Family History Patient's family history is not on file. Allergies Patient has No Known Allergies. Medications Patient has a current medication list which includes the following prescription(s): aspirin, furosemide, metoprolol succinate, quetiapine, spironolactone, tizanidine, valsartan, atorvastatin, and metformin, and the following Facility-Administered Medications: alvimopan, atorvastatin, cefTRIAXone (ROCEPHIN) 2 g in sodium chloride 0.9 % (NS) 50 mL SHANELLE IVPB, dextrose 50% (d50w), diazepam, enoxaparin, glucagon, glucose, lactated ringer's, [Held by provider] metoprolol succinate, metronidazole, morphine, nicotine, ondansetron OR ondansetron, oxycodone, pantoprazole, quetiapine, tizanidine. Review of Systems Constitutional: no fever, chills, night sweats, or weight change Eyes: no icterus or acute vision change Ear, nose, mouth, and throat: no hearing loss, mucosal bleeding or voice change Cardiovascular: no chest pain or palpitations Respiratory: no shortness of air, cough, or wheeze Gastrointestinal: no nausea, emesis, diarrhea, or constipation Genitourinary: no dysuria or gross hematuria Musculoskeletal: no joint or muscle pain Integumentary: no skin rash, ulcers, or wounds Neurological: no focal weakness or sensory changes Psychiatric: no depression or anxiety Endocrine: no hot/cold intolerance or episodes of hypoglycemia Hematologic: no anemia Immunologic: no recent illness or immunodeficiency Physical Exam BP 97/65 Pulse 103 Temp 98.5 ??F (36.9 ??C) (Oral) Resp 30 Ht 1.753 m (5' 9.02 ) Wt 80.5 kg (177 lb 6.1 oz) SpO2 95% BMI 26.18 kg/m?? Constitutional: comfortable, well nourished HEENT: atraumatic, anicteric, membranes moist, normal dentition, trachea midline Hem/Lymph/Immune: no lymphadenopathy Cardiovascular: regular rate and rhythm Respiratory: normal work of breathing, lungs clear bilaterally without audible wheeze GI: abdomen is tender to palpation throughout. No overlying erythema in left inguinal area. No palpable fluid collection. Musculoskeletal: extremities warm, no cyanosis or edema, 5/5 muscle strength in all four extremities and normal sensation grossly Skin: free of rashes, lesions, ulcers or wounds Psych: A&Ox3, appropriate affect, cooperative Neuro: normal strength and sensation grossly, face symmetric without droop, tongue protrusion midline No results found for: CBC Recent Labs 04/11/25 0326 WBC 14.2* HGB 9.8* HCT 30.2* PLT 215 Recent Labs 04/09/25201704/10/252 04/11/25 0326 NA 138 137 137 136 K 4.7 4.5 4.5 4.0 CL 109 108 108 105 CO2 18* 20* 20* 18* CREATININE 1.00 0.84 0.84 0.96 BUN 10.6 10.9 10.9 10.7 CALCIUM 8.2* 8.1* 8.1* 8.7 MG 1.7 1.7 -- PHOS 3.5 -- -- Recent Labs 04/11/25 0326 PROT 6.3* ALBUMIN 3.0* BILITOT 0.8 ALT <7 AST 14 ALKPHOS 56 No results for input(s): PROTIME , PTT , INR in the last 72 hours. No results for input(s): GLU , POCGLUC in the last 72 hours. Radiology Results (last day) Procedure Component Value Units Date/Time XR chest AP portable [[id number]] Collected: 04/11/25 1224 Order Status: Completed Updated: 04/11/25 1229 Narrative: PORTABLE CHEST 04/11/2025 11:00 AM HISTORY: Shortness of air COMPARISON: April 09, 2025 FINDINGS: The patient is status post median sternotomy. The heart is stable in size. The lung sanchez demonstrate no significant change. There is no pneumothorax. The support devices are in good position. Impression: There has been no significant interval change. Continued follow up recommended. Images reviewed, interpreted, and dictated by Dr. Roro Gaviria. Transcribed by Giovany Meza PA-C. CT ABDOMEN/PELVIS WITH IV CONTRAST Standard Protocol [[id number]] Collected: 04/11/25 1000 Order Status: Completed Updated: 04/11/25 1014 Narrative: CT SCAN OF THE ABDOMEN AND PELVIS WITH CONTRAST; 04/11/2025 9:34 AM HISTORY: Epigastric pain. COMPARISON: January 2018. PROCEDURE: The patient was injected with IV contrast. Axial images were obtained from the lung bases to the pubic symphysis by computed tomography. This study was performed with techniques to keep radiation doses as low as reasonably achievable, (ALARA). Individualized dose reduction techniques using automated exposure control or adjustment of mA and/or kV according to the patient size were employed. FINDINGS: ABDOMEN: There is marked degenerative disc disease throughout the lumbar spine. There is grade one anterolisthesis at L5-S1 with bilateral L5 pars defects. There is mild bibasilar atelectasis. There is a gallstone in the gallbladder. There is perinephric stranding bilaterally. There are peripelvic cysts bilaterally. There is a simple cyst projecting off the superior aspect of the right kidney. The solid organs are otherwise unremarkable. There is mesh in the anterior abdominal wall. There are skin alexandro in the anterior abdominal wall. There is trace ascites and free intraperitoneal air. There is a right abdominal ostomy. There is a ventral hernia in the anterior left abdomen containing a small amount of fluid and free air. PELVIS: The urinary bladder is decompressed by a Torres. There is flocculent fluid and debris extending into the left inguinal canal, likely representing an abscess. There is stranding in the anterior abdominal wall. Status post sigmoid colon resection. The appendix is not identified. The bowel loops are mildly distended. There is presacral stranding and fluid. There is stranding in the right inguinal canal. A surgical drain is looped in the pelvis. Impression: Minimal free fluid and free air, consistent with recent operative intervention. Perinephric stranding is nonspecific but pyelonephritis is not excluded. Loculated fluid collection in the left inguinal canal could represent an abscess. Images reviewed, interpreted, and dictated by Roro Gaviria MD Assessment/Plan 65 y.o. male POD 2 open LAR with takedown of colovesical fistula, diverting loop ileostomy, with new findings of left inguinal fluid collection. Attending attestation: Patient seen and examined. Chart reviewed. 65 YOM with history of colovesicle fistula, ventral and left inguinal hernia repairs who is s/p open LAR with takedown of colovesical fistula, diverting loop ileostomy 04/09/25 - Discussed with regarding his recent surgery, concern for leak vs mesh infection, causes of his peritonitis. - CT abdomen and pelvis imaging from today report reviewed. Imaging independently interpreted noting: small blips of free air, mild fluid with areas of mesenteric edema, left inguinal canal possible fluid collection. Reviewed with patient. - Labs from today reviewed noting 14.2 WBC which is down trending, CMP relatively without concern. Reviewed with patient. - Upon imaging reviewed, evaluation of patient, concern for possible leak/enterotomy. All mesh thatwas free from attachments has been excised already, no visualized pus at initial operation. Unfortunately we do not have a recent pre-op imaging (patient refused) to determine if abscess present in groin pre-op but if not, clinically doubt purulence from groin leading to his current peritonitis. Would be very concerned for possible vascular or bladder injury with further removal of incorporated mesh at this time. It is likely densely adhered to structures leading to significant morbidity if excised. Left inguinal hernia repair occurred in . - Discussed with , I would not plan for remove additional mesh if incorporated in at this time and recommend fpc antibiotics. May also require drain. Clinically his groins are not red or showing signs of infection right now. If concerns at surgery for his ex lap/take back, I would be happy to scrub in and assist or evaluate the area if requested. Patient is very complex with his history of extensive recent surgery, he is high risk for morbidity. - All questions answered. Time spent: 80 minutes Jody Tong DO * Cynthia Rodas RD - 04/10/2025 12:[address] [facility] NUTRITION ASSESSMENT AD[facility] Nutrition Assessment The patient is a 65 y.o. male presenting for recurrent complicated diverticulitis with colovesicular fistula for surgery procedure. Present on Admission: Diverticulitis of colon with perforation (Admitting Diagnoses) Nutrition Evaluation Type: Initial Assessment Reason for Evaluation: MST=5 (>/=34# wt loss, decreased appetite) Subjective Comments: 04/10: POD#1 s/p open redo low anterior resection with takedown of colovesical fistula, diverting loop ileostomy, ventral hernia repair, explant of abd wall mesh, and lysis of adhesions per Surgery. Discussed during MDR. Currently NPO with NGT to LIS. Noted 7% wt loss in the past 14 months per EMR (insignificant). Attempted to speak with pt however sleeping soundly, will reassess for PCM as able. Past Medical/Surgical History: Past Medical History: Diagnosis Date Anxiety CAD (coronary artery disease) Colovesical fistula Depression Diabetes (HCC) High blood pressure High cholesterol Hypertension Kawasaki disease (HCC) Vitamin D deficiency Past Surgical History: Procedure Laterality Date COLON SURGERY patient stated he had colon surgery (colostomy with reversal) CORONARY ANGIOPLASTY WITH STENT PLACEMENT CORONARY ARTERY BYPASS GRAFT HAND SURGERY Bilateral HERNIA REPAIR Vitals and Basic Assessment: Vitals: Vitals: 04/10/25 1215 BP: Pulse: 83 Resp: 21 Temp: SpO2: 97% Oxygen: 2LNC Bruce Scale: Bruce Scale Score: 15 Last BM: Last BM Date: 04/09/25 GI Symptoms: rounded abd, hypoactive BS, +NGT to LIS (no output recorded) Edema: Edema: Generalized Skin: no breakdown noted Allergies: No Known Allergies Scheduled Medications: Current Facility-Administered Medications Medication Dose Route Frequency Provider Last Rate Last Admin alvimopan (ENTEREG) capsule 12 mg 12 mg oral BID Rebekah Lockhart MD 12 mg at 04/10/25 0807 atorvastatin (LIPITOR) tablet 40 mg 40 mg oral Every Night Jah Long DO 40 mg at 04/09/25 203 cefTRIAXone (ROCEPHIN) 2 g in sodium chloride 0.9 % (NS) 50 mL SHANELLE IVPB 2 g intravenous Q24H MD Pietro IVPB Stopped at 04/10/25 1049 dextrose 50% (D50W) injection 25 g 25 g intravenous Q15 Min PRN Ismaeel Mercedes, DO diazePAM (VALIUM) injection 2.5 mg 2.5 mg intravenous Q6H PRN Rebekah Lockhart MD 2.5 mg at 04/10/25 0814 glucagon injection 1 mg 1 mg intraMUSCULAR Q15 Min PRN Ismaeel Mercedes, DO glucose chew tab 16 g 16 g oral Q15 Min PRN Ismaeel Mercedes, DO lactated Ringer's infusion 75 mL/hr intravenous Continuous Rebekah Lockahrt MD 75 mL/hr at 04/10/25 0649 75 mL/hr at 04/10/25 0649 [Held by provider] metoprolol succinate (TOPROL-XL) 24 hr tablet 50 mg 50 mg oral Every Night MD Inocencio metroNIDAZOLE (FLAGYL) IVPB 500 mg in sodium chloride 0.9 % 100 mL (premix) 500 mg intravenous Q6H [facility] Rebekah Lockhart MD IVPB Stopped at 04/10/25 0649 morphine injection 4 mg 4 mg intravenous Q4H PRN Rebekah Lockhart MD 4 mg at 04/10/25 0806 nicotine (NICODERM CQ) 21 mg/24 hr patch 1 patch 1 patch transdermal Daily PRN Ismaeel Mercedes, DO ondansetron (ZOFRAN-ODT) disintegrating tablet 4 mg 4 mg oral Q8H PRN Rebekah Lockhart MD Or ondansetron (ZOFRAN) injection 4 mg 4 mg intravenous Q8H PRN Rebekah Lockhart MD oxyCODONE (ROXICODONE) immediate release tablet 5 mg 5 mg oral Q4H PRN Rebekah Lockhart MD 5 mg at04/10/25 1010 pantoprazole (PROTONIX) injection 40 mg 40 mg intravenous Daily Rebekah Lockhart MD 40 mg at 04/10/25 0807 QUEtiapine (SEROquel) tablet 200 mg 200 mg oral Every Night Ismaeel Mercedes, DO 200 mg at 04/09/252030 tiZANidine (ZANAFLEX) tablet 4 mg 4 mg oral TID Isevy Long, DO 4 mg at 04/10/25 0807 Drips: LR Recent Labs 04/09/25 2018 04/10/25 0322 04/10/25 0539 NA 138 137 137 -- K 4.7 4.5 4.5 -- CO2 18* 20* 20* -- BUN 10.6 10.9 10.9 -- CREATININE 1.00 0.84 0.84 -- GLUCOSE 168* 146* 146* 128* CALCIUM 8.2* 8.1* 8.1* -- PROT 6.1* 5.7* -- ALBUMIN 3.1* 2.8* -- BILITOT 0.7 0.8 -- ALKPHOS 55 50 -- AST 10* 10* -- ALT <7 <7 -- HGB 10.5* 9.3* -- HCT 31.8* 29.0* -- Lab Results Component Value Date HGBA1C 6.1 (H) 03/12/2025 Anthropometrics: Ht: Height: 175.3 cm (5' 9.02 ) Wt: Weight: 80.5 kg (177 lb 6.1 oz) Wt hx: Wt Readings from Last 10 Encounters: 04/09/25 80.5 kg (177 lb 6.1 oz) 03/12/25 79.8 kg (176 lb) 02/07/24 86.2 kg (190 lb) BMI: Body mass index is 26.18 kg/m??. Wt Change: loss % Wt Change: 7% (x14mo) UBW: UTO IBW: 160# Percent IBW: 111% Estimated Needs: N/a Current Nutrition Intake: Diet Orders: Diet Order(s): NPO Except: Sips with meds, Sips of clear liquids, Ice Chips Supplements: Intake: -- Enteral Nutrition? no Diet Experience and Nutrition History: Previous Nutrition Education: Unknown Diet Education Provided: no, assess throughout LOS Nutrition Focused Physical Exam: Date performed: defer Physical signs of fat or muscle wasting with severity: -- Energy intake hx: -- Wt loss: -- Assessment of Malnutrition: Unable to complete malnutrition evaluation at this time. Nutrition Diagnoses: Problem #1: Unintended Weight Loss Etiology: inability to meet metabolic demand Signs/Symptoms: >/=34# wt loss per MST Status: New Nutrition Interventions and Recommendations: Collaboration with other providers, General, [employer], and Commercial beverage Nutrition Monitoring and Goals: - Advance diet as medically able (+heart healthy/60gCHO). RD to add ONS rpn. Goal: diet advancement - Monitor elytes, recommend replacing prn. Goal: wnls - Obtain wt 2x weekly Goal: avoid involuntary significant wt change - Reassess for PCM as able. Goal: accurate assessment Nutrition Risk Level: High Risk Cynthia Rodas RDN, LD * Murtaza Amato MD - 04/10/2025 7:48 AM EDTAssociated Order(s): FS_MODEL_IP IP CONSULT TO INFECTIOUS DISEASES Images from the original note were not included. [facility] INFECTIOUS DISEASE CONSULT/INITIAL HOSPITAL VISIT Levar Rand 1960 [id number] Date of consult: 04/10/2025 Admit date: 04/09/2025 Requesting Provider: @[email or web address]@ Evaluating physician: Murtaza Amato MD Reason for Consultation: Colovesical fistula repair 04/09/2025 Chief Complaint: Above Subjective History of present illness: Patient is a 65 y.o. Yr old male with a history of diabetes mellitus type 2, essential hypertension, hyperlipidemia, ongoing smoking, perforated diverticulitis with Zina procedure 2011 with reversal 2011, incisional hernia status post ventral hernia repair with Broughton-Pablo 2013, and colovesical fis sandra. Possible need for pacemaker but held off because of fistula. The patient was admitted for an elective repair to [facility] 04/09/2025. He underwent surgery with Dr. Rebekah Lockhart, and Dr. Asim Cancino on 04/09/2025. There was no rebekah abscess or significant purulence noted. Therewas the presence of mesh noted from previous repairs of inguinal and abdominal hernias. Mesh was partially excised. I was consulted on 04/10/2025 for further evaluation and treatment. No reported history of ill contacts, zoonotic exposures, TB, HIV, significant travel, immunocompromised state. Past Medical History: Diagnosis Date Anxiety CAD (coronary artery disease) Colovesical fistula Depression Diabetes (HCC) High blood pressure High cholesterol Hypertension Kawasaki disease (HCC) Vitamin D deficiency Past Surgical History: Procedure Laterality Date COLON SURGERY patient stated he had colon surgery (colostomy with reversal) CORONARY ANGIOPLASTY WITH STENT PLACEMENT CORONARY ARTERY BYPASS GRAFT HAND SURGERY Bilateral HERNIA REPAIR Pediatric History Patient Parents Not on file Other Topics Concern Not on file Social History Narrative Not on file Positive for smoking, no alcohol or drug use family history is not on file. Reviewed and unremarkable No Known Allergies There is no immunization history on file for this patient. Medication: @Scheduled Meds: alvimopan 12 mg oral BID 12 mg at 04/09/252030 atorvastatin 40 mg oral Every Night 40 mg at 04/09/252030 [Held by provider] metoprolol succinate 50 mg oral Every Night metroNIDAZOLE 500 mg intravenous Q6H AWA IVPB Stopped at 04/10/25648 pantoprazole 40 mg intravenous Daily 40 mg at 04/09/251752 QUEtiapine 200 mg oral Every Night 200 mg at 04/09/252030 tiZANidine 4 mg oral TID 4 mg at 04/09/252030 Continuous Infusions: Current Facility-Administered Medications Medication Dose Route Frequency Provider Last Rate Last Admin alvimopan (ENTEREG) capsule 12 mg 12 mg oral BID Rebekah Lockhart MD 12 mg at 04/09/252030 atorvastatin (LIPITOR) tablet 40 mg 40 mg oral Every Night Ismaeel Mercedes, DO 40 mg at 04/09/252030 dextrose 50% (D50W) injection 25 g 25 g intravenous Q15 Min PRN Ismaeel Mercedes, DO diazePAM (VALIUM) injection 2.5 mg 2.5 mg intravenous Q6H PRN Rebekah Lockhart MD 2.5 mg at 04/09/251803 glucagon injection 1 mg 1 mg intraMUSCULAR Q15 Min PRN Ismaeel Mercedes, DO glucose chew tab 16 g 16 g oral Q15 Min PRN Ismaeel Mercedes, DO lactated Ringer's infusion 75 mL/hr intravenous Continuous Rebekah Lockhart MD 75 mL/hr at 04/10/25 0649 75 mL/hr at 04/10/25 0649 [Held by provider] metoprolol succinate (TOPROL-XL) 24 hr tablet 50 mg 50 mg oral Every Night MD Inocencio metroNIDAZOLE (FLAGYL) IVPB 500 mg in sodium chloride 0.9 % 100 mL (premix) 500 mg intravenous Q6H AWA Rebekah Lockhart MD IVPB Stopped at 04/10/25 0649 morphine injection 4 mg 4 mg intravenous Q4H PRN Rebekah Lockhart MD nicotine (NICODERM CQ) 21 mg/24 hr patch 1 patch 1 patch transdermal Daily PRN Ismaeel Mercedes, DO ondansetron (ZOFRAN-ODT) disintegrating tablet 4 mg 4 mg oral Q8H PRN Rebekah Lockhart MD Or ondansetron (ZOFRAN) injection 4 mg 4 mg intravenous Q8H PRN Rebekah Lockhart MD oxyCODONE (ROXICODONE) immediate release tablet 5 mg 5 mg oral Q4H PRN Rebekah Lockhart MD 5 mg at04/09/25 1850 pantoprazole (PROTONIX) injection 40 mg 40 mg intravenous Daily Rebekah Lockhart MD 40 mg at 04/09/25 175 QUEtiapine (SEROquel) tablet 200 mg 200 mg oral Every Night Ismaeel Mercedes, DO 200 mg at 04/09/252030 tiZANidine (ZANAFLEX) tablet 4 mg 4 mg oral TID Ismaeel Mercedes, DO 4 mg at 04/09/252030 PRN Meds:.@[email or web address]@ Please refer to the medical record for a full medication list Review of Systems: Constitutional-- No Fever, chills or sweats. Appetite good, and no malaise. No fatigue. HEENT-- No new vision, hearing or throat complaints. No epistaxis or oral sores. Denies odynophagiaor dysphagia. No odynophagia or dysphagia. No headache, photophobia or neck stiffness. CV-- No chest pain, palpitation or syncope Resp-- No SOB/cough/Hemoptysis GI- No nausea, vomiting, or diarrhea. No hematochezia, melena, or hematemesis. Denies jaundice or chronic liver disease. -- No dysuria, hematuria, or flank pain. Denies hesitancy, urgency. Lymph- no swollen lymph nodes in neck/axilla or groin. Heme- No active bruising or bleeding; no Hx of DVT or PE. MS-- no swelling or pain in the bones or joints of arms/legs. No new back pain. Neuro-- No acute focal weakness or numbness in the arms or legs. No seizures. Skin--No rashes or lesions Physical Exam: Vital Signs Temp: [97.5 ??F (36.4 ??C)-98.2 ??F (36.8 ??C)] 97.5 ??F (36.4 ??C) Pulse: [67-90] 71 Resp: [11-49] 17 BP: (81-133)/(52-90) 104/70 Arterial Line BP 1: (76-137)/(45-79) 107/57 Blood pressure 104/70, pulse 71, temperature 97.5 ??F (36.4 ??C), temperature source Axillary, resp. rate 17, height 1.753 m (5' 9.02 ), weight 80.5 kg (177 lb 6.1 oz), SpO2 100%. GENERAL: Awake and alert, in minimal distress. Appears older than stated age. Resting in bed. HEENT: Normocephalic, atraumatic. Oropharynx without thrush. Dentition in good repair. No cervical adenopathy. No neck masses. Ears externally normal, Nose externally normal. Trachea midline. EYES: PERRLA. No conjunctival injection. No icterus. EOM full. LYMPHATICS: No lymphadenopathy of the neck or axillary or inguinal regions. HEART: No murmur, gallop, or pericardial friction rub. Reg rate rhythm, No JVD at 45 degrees. LUNGS: Clear to auscultation and percussion. No respiratory distress, no use of accessory muscles. No rales or rhonchi. ABDOMEN: Soft, nontender, nondistended. No appreciable HSM. Bowel sounds normal. GENITAL: No external lesions, breasts without masses, back straight, no CVAT, rectal external without lesions. SKIN: Warm and dry without cutaneous eruptions. No nodules. Surgical dressings in place abdomen. PSYCHIATRIC: Mental status lucid. No confusion. EXT: No cellulitic change. Normal ROM. NEURO: Oriented to name, CN 2 to 12 intact, DTR 1 + and symmetric, sensory intact to LT upper and lower extremitiy, motor 5/5 upper and lower extremity, cerebellar and gait not tested. Results Review: I reviewed the patient's new clinical results. Recent Labs Lab(s) Units 04/10/2532104/09/252017 WBC K/??L 16.0* 22.1* HGB GM/DL 9.3* 10.5* HCT % 29.0* 31.8* PLT K/CU MM 241 275 Recent Labs Lab(s) Units 04/10/25 0539 04/10/25321 NA meq/L -- 137 137 K meq/L -- 4.5 4.5 CL meq/L -- 108 108 CO2 meq/L -- 20* 20* BUN mg/dL -- 10.9 10.9 CREATININE mg/dL -- 0.84 0.84 GLUCOSE mg/dL 128* 146* 146* CALCIUM mg/dL -- 8.1* 8.1* Recent Labs Lab(s) Units 04/10/25321 ALKPHOS U/L 50 BILITOT mg/dL 0.8 ALT U/L <7 AST U/L 10* No results for input(s): SEDRATE in the last 168 hours. No results for input(s): CRP in the last 168 hours. No results for input(s): VANCOTROUGH , VANCORANDOM in the last 168 hours. No results for input(s): LACTATE in the last 168 hours. Estimated Creatinine Clearance: 72.7 mL/min (by C-G formula based on SCr of 0.84 mg/dL). @LABRCNTIP (cpk,ast,alt,alkaline phosphatase)@ Microbiology: Microbiology Results (last 7 days) No results found for the last 168 hours. Radiology: Radiology Results (last 3 days) Procedure Component Value Units Date/Time XR chest AP portable [[id number]] Resulted: 04/10/25 0745 Order Status: Sent Updated: 04/09/252047 IMPRESSION: Colovesical fistula repaired 04/09/2025 without obvious abscess but some evidence of inflammation, with partial resection of previous Broughton-Pablo mesh. Leukocytosis, neutrophilic related to above issues. Anemia, acute postoperative blood loss and chronic disease. Diabetes mellitus type 2 with increased risk for infection. Hypocalcemia 8.1. Ongoing smoking. RECOMMENDATIONS: Diagnostically, continue to follow patient's physical exam, CBC, CMP, CRP, radiographs as needed. MRSA screen. Therapeutically, consider ceftriaxone plus metronidazole while in hospital, with probable de-escalation to amoxicillin/clavulanate, with duration of antibiotics until 04/19/2025 and reassess. Patient had some evidence of inflammation at the time of surgery but no rebekah abscess. Does also have Broughton-Pablo mesh in place which was partially resected. Future concerns could include potential infection of Broughton-Pablo mesh which is a difficult clinical problem to remedy and can become a chronic focus of infection. Especially important and lieu of his future considerations for pacemaker. Not clear what optimal duration of antibiotics would be in the setting given the absence of systemic signs of infectionor abscess. Supportive care. Room air on 04/10. I discussed the patient's findings and my recommendations with the patient and nursing. Thank you for asking me to see Levar Rand. Our group would be pleased to follow this patient over the course of their hospitalization and assist with outpatient antimicrobial therapy, as indicated. Further recommendations depend on the results of the cultures and clinical course. The patient hasan increased risk for adverse drug reactions, complications of IV access, readmission. Side effectsof medications were discussed. This visit included the following complex service elements: Complex medical decision-making associated with antimicrobial prescribing. In-depth chart review with high level synthesis for complex diagnoses. Managed infection prevention and treatment protocol associated with transitions of care for this complex patient. Counseled patients, family members, and/or caregivers regarding antimicrobial stewardship and resistance for the patient. Murtaza Amato MD 04/10/2025 * Wesley Goncalves APRN - 04/09/2025 7:49 PM EDTAssociated Order(s): Inpatient consult to Pulmonology Inpatient consult to Pulmonology Consult performed by: Wesley Goncalves APRN Consult ordered by: Rebekah Lockhart MD PULMONARY AND CRITICAL CARE Consult Note Date of Service: 04/09/2025 Reason for Consult: For critical care management. Referring: Chantelle HPI: This is a 65 y.o. 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 He has had acosta's in 2012 and reversal and incisional hernia repair in 2014. He has been followed outpatient by Colorectal surgery due to concerns for colovesicular fistula immediately proximal to his anastomosis. He underwent Colonoscopy and CT scan and noted inflamed colovesicular fistula between the descending/sigmoid colon junction and the left urinary bladder with bladder wall thickening. There wasalso an abdominal midline ventral hernia containing nonobstructed bowel loops. He presented today for elective open lower anterior resection, takedown of colovesicular fistula, possible diverting loop ileostomy, ventral hernia repair and cystoscopy with temporary ureteral stents. He tolerated the procedure well and transferred to ICU for monitoring. Pulmonary has been consulted for ICU management. PAST MEDICAL HISTORY: Past Medical History: Diagnosis Date Anxiety CAD (coronary artery disease) Colovesical fistula Depression Diabetes (HCC) High blood pressure High cholesterol Hypertension Kawasaki disease (HCC) Vitamin D deficiency PAST SURGICAL HISTORY: Past Surgical History: Procedure Laterality Date COLON SURGERY patient stated he had colon surgery (colostomy with reversal) CORONARY ANGIOPLASTY WITH STENT PLACEMENT CORONARY ARTERY BYPASS GRAFT HAND SURGERY Bilateral HERNIA REPAIR Past Surgical History: Procedure Laterality Date COLON SURGERY patient stated he had colon surgery (colostomy with reversal) CORONARY ANGIOPLASTY WITH STENT PLACEMENT CORONARY ARTERY BYPASS GRAFT HAND SURGERY Bilateral HERNIA REPAIR Allergies: No Known Allergies SOCIAL HISTORY: Social History Tobacco Use Smoking status: Every Day Types: Cigarettes Smokeless tobacco: Never Substance Use Topics Alcohol use: Never Drug use: Yes Types: Marijuana Comment: weekly FAMILY HISTORY: family history is not on file. Review of Systems Constitutional: Positive for malaise/fatigue. HENT: Negative. Eyes: Negative. Respiratory: Negative. Cardiovascular: Negative. Gastrointestinal: Positive for abdominal pain. Genitourinary: Negative. Musculoskeletal: Negative. Skin: Negative. Neurological: Positive for weakness. Psychiatric/Behavioral: The patient is nervous/anxious. Vital Signs Temp: [98.2 ??F (36.8 ??C)-98.6 ??F (37 ??C)] 98.2 ??F (36.8 ??C) Pulse: [74-85] 84 Resp: [11-29] 18 BP: (94-133)/(57-90) 101/71 Arterial Line BP 1: (82-137)/(52-79) 115/57 Current: Temp: 98.2 ??F (36.8 ??C) Pulse: 84 Resp: 18 BP: 101/71 SpO2: 99 % 24 Hour: BP Min: 94/62 Max: 133/87 Temp Min: 98.2 ??F (36.8 ??C) Max: 98.6 ??F (37 ??C) Pulse Min: 74 Max: 85 Resp Min: 11 Max: 29 SpO2 Min: 89 % Max: 100 % Height Min: 175.3 cm (5' 9.02 ) Max: 175.3 cm (5' 9.02 ) Weight Min: 80.5 kg (177 lb 6.1 oz) Max: 80.5 kg (177 lb 6.1 oz) Intake/Output: I/O last 3 completed shifts: In: 950 [I.V.:900; IV Piggyback:50] Out: 650 [Urine:235; Drains:165; Blood:250] Physical Exam Constitutional: Appearance: He is ill-appearing. HENT: Head: Normocephalic and atraumatic. Mouth/Throat: Mouth: Mucous membranes are dry. Eyes: Pupils: Pupils are equal, round, and reactive to light. Cardiovascular: Rate and Rhythm: Normal rate and regular rhythm. Abdominal: Palpations: Abdomen is soft. Comments: Midline abdominal incision with dressing, left-sided WOLF drain with serosanguineous discharge, right-sided ostomy Musculoskeletal: General: No deformity. Skin: General: Skin is warm and dry. Capillary Refill: Capillary refill takes less than 2 seconds. Neurological: Mental Status: He is alert and oriented to person, place, and time. Psychiatric: Mood and Affect: Mood normal. Intake/Output: I/O last 3 completed shifts: In: 950 [I.V.:900; IV Piggyback:50] Out: 650 [Urine:235; Drains:165; Blood:250] LABS Results for orders placed or performed during the hospital encounter of 04/09/25 (from the past 24 hours) Glucose, iSTAT Meter Status: Normal Collection Time: 04/09/25 6:49 AM Result Value Ref Range POC-GLUCOSE 101 70 - 105 mg/dL POC-Potassium Status: Normal Collection Time: 04/09/25 6:49 AM Result Value Ref Range POC Potassium 4.3 3.5 - 4.9 mmol/L Type and Screen Status: None Collection Time: 04/09/25 7:00 AM Result Value Ref Range ABO/Rh B Positive Antibody Screen Negative HISTCHK HIST CHECK PERFORMED Glucose, Nova Meter Status: Abnormal Collection Time: 04/09/25 11:26 AM Result Value Ref Range POC-GLUCOSE 161 (H) 70 - 110 mg/dL Generation Technician [id number] No results found for: PT , INR , PTT CHEM7: No results found for: GLU , NA , K , CL , CO2 , BUN , CREATININE , EGFR , CALCIUM Lab Results Component Value Date AST 39 (H) 03/12/2025 ALT <7 03/12/2025 No results for input(s): POCGLU in the last 72 hours. No results for input(s): POCPH , POCPCO2 , POCPO2 , POCABG in the last 72 hours. Invalid input(s): POCSAT , POCART , ARTPOC Microbiology: Microbiology Results (last 7 days) No results found for the last 168 hours. Radiology Results (last day) No results found for the last 24 hours. No valid procedures specified. ASSESSMENT: Pulmonary On Room Air Tobacco Abuse Marijuana Abuse Neurology: Anxiety/Depression Marijuana Abuse Cardiology: Hypotension post procedure; mild; received Albumin and IVF H/O CAD/CABG and Cardiac stents, HTN/HLD Infectious disease: Normal WBC/No fevers Nephrology: Stable Bun/Cr S/P Cystoscopy with Bilateral ureteral stents Gastroenterology: Recurrent Complicated Diverticulitis with Colovesicular Fistula H/O of Star's procedure with subsequent reversal and incisional hernia repair in 2019 S/P Open Redo LAR with take down of colovesicular fistula with diverting loop illeostomy as well ascystoscopy and bilateral ureteral stent placement 04/09/25 Endocrine: DM Hematology: Stable H/H/platelets Dr. Montanez PLAN: Supplemental O2 prn for O2 sats < 92% CXR pending Duonebs prn Encourage IS/FVD Hemodynamic support MAP > 65--stable S/P Albumin IVF LR @ 75ml/hr Post operative labs ordered Antibx Flagyl NPO PT/OT Protonix/Lovenox Wesley Sacha, ROOM SERVER CCT 40 minutes Cosigned by Erica Montanez MD at 04/27/2025 12:54 PM EDT * Jah Long, DO - 04/09/2025 3:52 PM EDT Internal Medicine Consults History of Present Illness: Levar Rand is a 65 y.o. male presenting with for elective surgery with colorectal surgery. I sawand evaluated patient in Post-op.He is resting comfortably. He is awake, interactive. His pain seems to be well-controlled. Nursing tells me that he has been slightly soft in regards to his blood pressure and he did receive some IV albumin and responded well to this. He will be admitted postoperatively for further management. Medicine consulted for medical comanagement Past Medical History: He has a past medical history of Anxiety, CAD (coronary artery disease), Colovesical fistula, Depression, Diabetes (HCC), High blood pressure, High cholesterol, Hypertension, Kawasaki disease (HCC), and Vitamin D deficiency. Past Surgical History: He has a past surgical history that includes Coronary artery bypass graft; Colon surgery; Hernia repair; Hand surgery (Bilateral); and Coronary angioplasty with stent. Social History: He reports that he has been smoking cigarettes. He has never used smokeless tobacco. He reports current drug use. Drug: Marijuana. He reports that he does not drink alcohol. Family History: His family history is not on file. Allergies: Patient has no known allergies. Medications: Medications Prior to Admission Medication Sig Dispense Refill Last Dose/Taking furosemide (LASIX) 20 MG tablet Take 1 tablet (20 mg total) by mouth once as needed. 04/08/2025 Lipitor 40 mg tablet Take 1 tablet (40 mg total) by mouth nightly. 04/08/2025 metFORMIN (GLUCOPHAGE) 500 MG tablet Take 1 tablet (500 mg total) by mouth nightly Look-alike/Sound-alike medication. 04/08/2025 metoprolol succinate (TOPROL-XL) 50 MG 24 hr tablet Take 1 tablet (50 mg total) by mouth nightly. 04/08/2025 at 7:30 PM QUEtiapine (SEROquel) 200 MG tablet Take 1 tablet (200 mg total) by mouth 2 (two) times daily. 04/08/2025 spironolactone (ALDACTONE) 25 MG tablet Take 1 tablet (25 mg total) by mouth nightly. 04/08/2025 tiZANidine (ZANAFLEX) 4 MG tablet Take 1 tablet (4 mg total) by mouth every 8 (eight) hours as needed. 04/08/2025 valsartan (DIOVAN) 40 MG tablet Take 1 tablet (40 mg total) by mouth 2 (two) times daily. 04/08/2025 aspirin 325 MG EC tablet Take 1 tablet (325 mg total) by mouth nightly. 03/12/2025 Review of Systems Constitutional: Negative for chills and fever. HENT: Negative for congestion and sore throat. Eyes: Negative for photophobia and visual disturbance. Respiratory: Negative for cough and shortness of breath. Cardiovascular: Negative for chest pain, palpitations and leg swelling. Gastrointestinal: Positive for abdominal pain. Negative for constipation, diarrhea and vomiting. Genitourinary: Negative for dysuria and frequency. Musculoskeletal: Negative for back pain and myalgias. Skin: Negative for pallor and rash. Neurological: Negative for syncope, weakness and headaches. Psychiatric/Behavioral: Negative for agitation and confusion. Vitals: Blood pressure 108/67, pulse 81, temperature 98.2 ??F (36.8 ??C), temperature source Temporal Artery, resp. rate 29, weight 80.5 kg (177 lb 6.1 oz), SpO2 95%. Physical Exam Constitutional: General: He is not in acute distress. Appearance: Normal appearance. He is ill-appearing. HENT: Head: Normocephalic and atraumatic. Eyes: Extraocular Movements: Extraocular movements intact. Pupils: Pupils are equal, round, and reactive to light. Cardiovascular: Rate and Rhythm: Normal rate and regular rhythm. Pulses: Normal pulses. Heart sounds: Normal heart sounds. Pulmonary: Effort: Pulmonary effort is normal. No respiratory distress. Breath sounds: Normal breath sounds. No wheezing, rhonchi or rales. Abdominal: General: There is no distension. Palpations: Abdomen is soft. Tenderness: There is no abdominal tenderness. Comments: Midline abdominal incision with dressing, left-sided WOLF drain with serosanguineous discharge, right-sided ostomy Musculoskeletal: General: Normal range of motion. Cervical back: Neck supple. Left lower leg: No edema. Skin: General: Skin is warm and dry. Neurological: General: No focal deficit present. Mental Status: He is oriented to person, place, and time. Psychiatric: Mood and Affect: Mood normal. Behavior: Behavior normal. Relevant Results: Glucose 161, potassium 4.3 Assessment & Plan Principal Problem: Diverticulitis of colon with perforation Mr. Rand is a 65-year-old male with a history of recurrent complicated diverticulitis with colovesicular fistula with previous Acosta's with subsequent reversal and incisional hernia repair who presents today for open redo LAR with takedown of colovesicular fistula with diverting loop ileostomy. #Colovesicular fistula: #Recurrent diverticulitis -Operative intervention per colorectal surgery, status post elective LAR with takedown of fistula and diverting loop ileostomy with bilateral ureteral stent placement for guidance on 04/09 -PT OT consulted -Incentive spirometry ordered -A.m. CBC, CMP and magnesium level ordered -Continue LR at 100 cc/h -P.o. oxy for pain, IV Valium for abdominal spasms -Await return of bowel function -Out of bed as tolerated #Diabetes: -Start sliding scale insulin #Hypertension: -Holding home Toprol given soft blood pressures in PACU #Hyperlipidemia: -Resume home Lipitor 40 mg daily #Tobacco use disorder: - NRT ordered Thank you for this consult. Medicine will continue to follow along. Electronically signed by Jah Long DO 04/09/2025 at 3:52 PM documented in this encounter OR Notes * Op Note - Rebekah Lockhart MD - 04/09/2025 11:23 AM EDT [facility] OPERATIVE REPORT Levar Rand 04/09/2025 Pre-op Diagnosis: Recurrent complicated diverticulitis with colovesicular fistula Status post previous Acosta's in 2011 with subsequent reversal and incisional hernia repair in 2013 Post-op Diagnosis: Same Procedure: OPEN REDO LOW ANTERIOR RESECTION WITH TAKEDOWN OF COLOVESICAL FISTULA DIVERTING LOOP ILEOSTOMY VENTRAL HERNIA REPAIR EXPLANT OF ABDOMINAL WALL MESH LYSIS OF ADHESIONS CYSTOSCOPY WITH URETERAL STENT INSERTION (Urology) Surgeons: Surgeon(s): Rebekah Lockhart MD Anesthesia: General Staff: School Leader: Aditya Vazquez RN Scrub: Charmaine Gonsales; Long [employer] School Leader Results Engineer: Rafaela Vee RN First Assist: Yumiko CariasSIlya @[facility] [place]@ was responsible for performing the following activities: retraction, suctioning, closing and their skilled assistance was necessary for the success of this case. Estimated Blood Loss: 250 mL from 04/09/2025 7:46 AM to 04/09/2025 11:23 AM Urine Voided: See Anesthesia Note Specimens: Specimens (From admission, onward) Start Ordered 04/09/25 0951 Tissue Exam RELEASE UPON ORDERING 04/09/25 0951 Drains: Ostomy (Stool) RLQ (Active) Urethral Catheter Non-latex 16 Fr. (Active) Closed/Suction Drain Medial LLQ Bulb 19 Fr. (Active) [REMOVED] Urethral Catheter Latex 16 Fr. (Removed) Findings: Laparotomy with dense adhesive disease to the anterior abdominal wall requiring lysis of adhesions for nearly an hour. Apparent fistula immediately proximal to the previous colorectal anastomosis. Fistula was taken down which would reveal some meshlike material in the anterior abdominal wall, this was very close to the bladder and not immediately adjacent to the anterior abdominal wall.This was unable to be explanted. This could potentially be inguinal hernia mesh. Methylene blue wasbackfilled into the bladder to 250 mL with no signs of any spillage or leakage. Old anastomosis wasresected along with a small portion of the left colon. Healthy ends and left colon to rectal anastomosis was performed and negative leak test. Ureters were identified and protected on both sides. I did not divide the inferior mesenteric artery. I explanted some of the not incorporated Broughton-Pablo meshfrom the ventral abdominal wall. Abdominal wall was closed primarily with running PDS and interrupted 0 Vicryl to serve as retention sutures. Complications: None Procedure in Detail: After informed written consent was obtained, the patient was brought to the operating theater, timeout was performed with all parties in agreement. General anesthesia was introduced, antibiotics wereadministered and the patient's abdomen perineum were prepped and draped in usual sterile fashion after he was placed in lithotomy position. The procedure was for started by urology placing a bilateral ureteral stents via cystoscopy. Pleasesee that operative dictation for further details. Of note, at the termination of the case both ureteral stents were removed and a new Torres catheter was placed. The stents. To be intact. I started my portion of the procedure by creating a generous midline incision. His umbilicus had been previously resected. We started just above where this would have been. This was carried inferiorly until reaching the pubic bone. Electrocautery was used to enter into the abdomen here we noted dense adhesive disease of the small bowel, colon, omentum and anterior abdominal wall. This started a rather dense lysis of adhesions utilizing Metzenbaums and electrocautery when appropriate for roughlyan hour in order to free the small bowel up off the anterior abdominal wall in order to gain visualization into the abdomen and the pelvis. 3 small serosal partial-thickness serosal injuries were encountered and which were oversewn with 2-0 Vicryl in interrupted fashion. There was never any spillage of succus. This allowed visualization of the pelvis. Self-retaining retractors placed here. It wasevident that the inferior mesenteric artery was not taken at the time of his previous Acosta's and reversal. Elevated the left colon noted incised the new attachments as the white line the previously been mobilized. I carried this up to the splenic flexure but did not release the splenic flexure. Performed a lateral to medial mobilization was able to identify the ureters and protect these. I then moved towards the pelvis, through combination of blunt and sharp dissection with Metzenbaums and electrocautery was able to isolate out this colovesicular fistula which is immediately proximal to the anastomosis. After ensuring that the ureter was safe, this was divided sharply with electrocautery. I then continued to mobilize the left colon as well as the rectum dividing the rectal stalks and dissecting out the presacral space. EEA sizers were placed with ease up to the prior anastomosis and I decided to divide immediately distal to this. The mesorectum was cleared with the LigaSure device and the bowels divided with a single firing of a 45 mm green contour stapler. There is evidence that there is very little inflammation involving the left colon and the rectum with the exception of this fistula that was encountered here. I thought about completely mobilizing the splenic flexure and doing a transverse to rectal anastomosis however that would require significant lysis of adhesions in the left colon that remained was quite healthy and reached the rectum with no tension. I decided upon a proximal margin which was several inches prior to the anastomosis. The mesentery was cleared with the LigaSure device and the bowel was divided with a 10 blade which noted adequate bleeding. 2-0 Prolene was used as to create a pursestring and a 28 mm EEA anvil was inserted here. Prior to the anastomosis I did evaluate the bladder. The bladder was backfilled with 250 mL dilute methylene blue which showed no signs of bladder leak. I then investigated this area where the fistula was. There was no signs of any ongoing purulence after he had taken this down but did appear like perhaps there was mesh material. This was under the pubic bone. This would not be normal place for even preperitoneal mesh to be for incisional hernia. I thought perhaps this was inguinal hernia mesh.This was unable to be explanted was densely adherent to the surrounding tissues. To minimize traumato associated structures as this was rather fixed I thought it was best to leave this in situ and treat postoperatively with antibiotics. I then inserted the EEA stapler up to the apex of the anus and a tension-free end-to-end colorectalanastomosis was performed. Leak test was then performed as a anastomosis submerged under sterile normal saline via proctoscopy which noted no signs of a leak. All lap pads were then removed from the abdomen. 19 Brazilian Kenrick drain was inserted through the left hemiabdomen and placed in the pelvis adjacent to the anastomosis as well as this mesh. I then turned my attention to the anterior abdominalwall where there was some Broughton-Pablo mesh, some of this was not incorporated which was excised and passed off to pathology. The other portion of the mesh was rather well incorporated and I did not think it was necessary to explant this. Lastly identified a portion of terminal ileum which was appropriate to serve as a diverting loop ileostomy. I excised the cord site skin defect that was marked for her ileostomy, this was noted to be rather wide so I did bring this more towards the middle portion of the abdomen where went through the fascia. The small bowel was eviscerated but later returned to her ileostomy. #1 PDS looped was then used in a running fashion to reapproximate the abdominal wall fascia. 0 Vicryl retention sutures were used and totally to buttress the repair. Wound was thoroughly irrigated followed by reapproximation with alexandro. I then matured the ileostomy in the usual Janice fashion utilizing 2-0 Vicryl. Ostomy bridge was placed here. The proximal limb was cephalad. Patient tolerated the surgery well, was subsequently waken from anesthesia in satisfactory condition. He did have an arterial line due to his low EF. We lost 250 mL of blood. Due to his overall comorbidities, including his active smoker I decided it was best to place him in the ICU postoperatively. 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 The risks, benefits, and alternatives of the above procedure were discussed and the patient has elected to proceed. Surgeons: Surgeons and Role: * Rebekah Lockhart MD - Primary Findings: Cystoscopy consistent with colovesical fistula Procedure Details: After consent is obtained patient's brought to the operating suite was placed insupine position. He is carefully placed in dorsolithotomy position padding all pressure points. Anesthesia was induced. He was sterilely prepped and draped in normal fashion. Cystoscope sensor and the patient wreath and bladder atraumatically. 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 Patten cystoscopy was performed. There was feculent urine. Both ureteral orifice ease were identified and orthotopic. We are able to advance Pollick catheters into each ureteral orifice to serve his ureteral stents and they were advanced up to 25 cm. They are allowed to drain into a Teo catheter which was placed after removal of the cystoscope. For details regarding the colorectal portion of the case see colorectal surgery operative note. The patient was seen in the preoperative area. The site of surgery was properly noted/marked if necessary per policy. The patient has been actively warmed in preoperative area. Preoperative antibiotics have been ordered and given within 1 hours of incision. Venous thrombosis prophylaxis have been ordered including bilateral sequential compression devices Anesthesia: General Estimated Blood Loss: * No values recorded between 04/09/2025 12:00 AM and 04/09/2025 8:36 AM * Total IV Fluids: Greater than 100 mL Drains: * No LDAs found * Specimens: Specimens (From admission, onward) None Complications: None * No complications entered in OR log * Disposition: PACU - hemodynamically stable. Condition: stable Attending Attestation: I performed the procedure. documented in this encounter Miscellaneous Notes * Plan of Care - Suri Alcaraz RN - 04/12/2025 9:04 AM EDT Problem: Pain Goal: Patient's pain/discomfort is manageable Description: Assess and monitor patient's pain using appropriate pain scale. Collaborate with interdisciplinary team and initiate plan and interventions as ordered. Re-assess patient's pain level after pain management intervention. Outcome: Progressing Problem: Safety Goal: Patient will be injury free during hospitalization Description: Assess and monitor vitals signs, neurological status including level of consciousness and orientation. Assess patient's risk for falls and implement fall prevention plan of care and interventions per hospital policy. Ensure arm band on, uncluttered walking paths in room, adequate room lighting, call light and overbed table within reach, bed in low position, wheels locked, side rails up per policy, and non-skid footwear provided. Outcome: Progressing Problem: Potential for Developing a Blood Clot Goal: Tissue perfusion is adequate - venous Description: Assess and monitor skin color and temperature, skin integrity, pulses, capillary refill, edema, pain in extremities, Homans' sign, labs (D- dimer), and diagnostic tests (ultrasound, CT scan, VQ scan). Monitor for signs and symptoms of deep vein thrombosis (swelling of calf/thigh, redness, pain, tenderness). Monitor for signs and symptoms of pulmonary embolism (dyspnea, tachypnea, tachycardia). Collaborate with interdisciplinary team and initiate plans and interventions as needed Outcome: Progressing Problem: Daily Care Goal: Daily care needs are met Description: Assess and monitor ability to perform self care and identify potential discharge needs. Outcome: Progressing Problem: Potential for Infection Goal: Remains infection free Description: Assess and monitor vital signs, skin (color, moisture, integrity, turgor), respiratorystatus, urinary and gastrointestinal status, and labs (WBC, cultures). Administer antibiotics and antipyretics as ordered. Ensure aseptic care of all intravenous lines, invasive tubes/drains and wounds. Monitor for signs and symptoms of infection (redness, warmth, discharge, increased body temperature). Wash hands properly before and after each patient care activity. Follow isolation guidelines per hospital protocol/policy. Collaborate with interdisciplinary team and initiate plan and interventions as ordered. Outcome: Progressing Problem: Psychosocial Needs Goal: Demonstrates ability to cope with hospitalization/illness Description: Assess and monitor patients ability to cope with his/her illness. Outcome: Progressing Goal: Collaborate with patient/family/caregiver to identify patient specific goals for this hospitalization Outcome: Progressing Problem: Anxiety Goal: Anxiety is at manageable level Description: Assess and monitor patient's anxiety level. Monitor for signs and symptoms of anxiety both physical and emotional (heart palpitations, chest pain, shortness of breath, headaches, nausea,feeling jumpy, restlessness, irritable, apprehensive). Collaborate with interdisciplinary team and initiate plan and interventions as ordered. Outcome: Progressing Problem: Inadequate Coping Goal: Demonstrates ability to cope effectively Description: Patient is able to verbalize feelings related to emotional state. Outcome: Progressing Goal: Verbalizes adaptive coping mechanisms Description: Able to verbalize adaptive coping mechanisms such as physical activity, distraction, and deep breathing exercises. Outcome: Progressing Goal: Verbalizes personal strengths Description: Spend time with the patient using empathy and active listening skills. Outcome: Progressing Problem: Progressive Mobility Goal: BMAT Level 1 - With full mechanical lifting assistance: Outcome: Progressing Goal: BMAT Level 2 - With 2-person and/or mechanical lifting assistance: Outcome: Progressing Goal: BMAT Level 3 - With 1 to 2-person and/or mechanical lifting assistance: Outcome: Progressing Goal: BMAT Level 4 - With 1-person assistance or mobility aid as needed (walker, cane, crutches): Outcome: Progressing Problem: Discharge Barriers Goal: Patient's discharge needs are met Description: Collaborate with interdisciplinary team and initiate plans and interventions as needed. Outcome: Progressing Problem: Risk for Falls Goal: No falls during hospitalization Description: Patient will not fall during hospitalization. Outcome: Progressing Problem: Knowledge Deficit Goal: Knowledge - personal safety Description: Patient will verbalize understanding of fall prevention. Outcome: Progressing Problem: Compromised Skin Integrity Goal: LTG - Patient will be free from infection Outcome: Progressing Goal: LTG - Patient will maintain/improve skin integrity through proper skin care techniques Outcome: Progressing Goal: LTG - Patient will demonstrate appropriate pressure relief techniques Outcome: Progressing Goal: LTG - Patient will demonstrate appropriate skin care techniques Outcome: Progressing Goal: LTG - Patient will be free from infection Outcome: Progressing Goal: STG - Patient demonstrates skin care/treatment/dressing change Outcome: Progressing Goal: STG - Patient will maintain good skin integrity Outcome: Progressing Goal: STG - Patient exhibits signs of wound healing. Outcome: Progressing Goal: STG - Patient demonstrates pressure reduction techniques Outcome: Progressing Goal: STG - Patient demonstrates preventative skin care measures Outcome: Progressing Problem: Knowledge Deficit Goal: Patient/family/caregiver demonstrates understanding of disease process, treatment plan, medications, and discharge instructions Description: Complete learning assessment and assess knowledge base. Outcome: Progressing Problem: Potential for Falls Goal: Patient will remain free of falls Description: Assess and monitor vitals signs, neurological status including level of consciousness and orientation. Reassess fall risk per hospital policy.Ensure arm band on, uncluttered walking paths in room, adequate room lighting, call light and overbed table within reach, bed in low position, wheels locked, side rails up per policy, and non-skid footwear provided. Outcome: Progressing * Plan of Care - Lizet Torres RN - 04/11/2025 11:19 AM EDT Problem: Pain Goal: Patient's pain/discomfort is manageable Description: Assess and monitor patient's pain using appropriate pain scale. Collaborate with interdisciplinary team and initiate plan and interventions as ordered. Re-assess patient's pain level after pain management intervention. Outcome: Progressing Problem: Safety Goal: Patient will be injury free during hospitalization Description: Assess and monitor vitals signs, neurological status including level of consciousness and orientation. Assess patient's risk for falls and implement fall prevention plan of care and interventions per hospital policy. Ensure arm band on, uncluttered walking paths in room, adequate room lighting, call light and overbed table within reach, bed in low position, wheels locked, side rails up per policy, and non-skid footwear provided. Outcome: Progressing Problem: Potential for Developing a Blood Clot Goal: Tissue perfusion is adequate - venous Description: Assess and monitor skin color and temperature, skin integrity, pulses, capillary refill, edema, pain in extremities, Homans' sign, labs (D- dimer), and diagnostic tests (ultrasound, CT scan, VQ scan). Monitor for signs and symptoms of deep vein thrombosis (swelling of calf/thigh, redness, pain, tenderness). Monitor for signs and symptoms of pulmonary embolism (dyspnea, tachypnea, tachycardia). Collaborate with interdisciplinary team and initiate plans and interventions as needed Outcome: Progressing Problem: Daily Care Goal: Daily care needs are met Description: Assess and monitor ability to perform self care and identify potential discharge needs. Outcome: Progressing Problem: Potential for Infection Goal: Remains infection free Description: Assess and monitor vital signs, skin (color, moisture, integrity, turgor), respiratorystatus, urinary and gastrointestinal status, and labs (WBC, cultures). Administer antibiotics and antipyretics as ordered. Ensure aseptic care of all intravenous lines, invasive tubes/drains and wounds. Monitor for signs and symptoms of infection (redness, warmth, discharge, increased body temperature). Wash hands properly before and after each patient care activity. Follow isolation guidelines per hospital protocol/policy. Collaborate with interdisciplinary team and initiate plan and interventions as ordered. Outcome: Progressing Problem: Psychosocial Needs Goal: Demonstrates ability to cope with hospitalization/illness Description: Assess and monitor patients ability to cope with his/her illness. Outcome: Progressing Goal: Collaborate with patient/family/caregiver to identify patient specific goals for this hospitalization Outcome: Progressing Problem: Anxiety Goal: Anxiety is at manageable level Description: Assess and monitor patient's anxiety level. Monitor for signs and symptoms of anxiety both physical and emotional (heart palpitations, chest pain, shortness of breath, headaches, nausea,feeling jumpy, restlessness, irritable, apprehensive). Collaborate with interdisciplinary team and initiate plan and interventions as ordered. Outcome: Progressing Problem: Inadequate Coping Goal: Demonstrates ability to cope effectively Description: Patient is able to verbalize feelings related to emotional state. Outcome: Progressing Goal: Verbalizes adaptive coping mechanisms Description: Able to verbalize adaptive coping mechanisms such as physical activity, distraction, and deep breathing exercises. Outcome: Progressing Goal: Verbalizes personal strengths Description: Spend time with the patient using empathy and active listening skills. Outcome: Progressing Problem: Progressive Mobility Goal: BMAT Level 1 - With full mechanical lifting assistance: Outcome: Progressing Goal: BMAT Level 2 - With 2-person and/or mechanical lifting assistance: Outcome: Progressing Goal: BMAT Level 3 - With 1 to 2-person and/or mechanical lifting assistance: Outcome: Progressing Goal: BMAT Level 4 - With 1-person assistance or mobility aid as needed (walker, cane, crutches): Outcome: Progressing Problem: Discharge Barriers Goal: Patient's discharge needs are met Description: Collaborate with interdisciplinary team and initiate plans and interventions as needed. Outcome: Progressing Problem: Risk for Falls Goal: No falls during hospitalization Description: Patient will not fall during hospitalization. Outcome: Progressing Problem: Knowledge Deficit Goal: Knowledge - personal safety Description: Patient will verbalize understanding of fall prevention. Outcome: Progressing Problem: Compromised Skin Integrity Goal: LTG - Patient will be free from infection Outcome: Progressing Goal: LTG - Patient will maintain/improve skin integrity through proper skin care techniques Outcome: Progressing Goal: LTG - Patient will demonstrate appropriate pressure relief techniques Outcome: Progressing Goal: LTG - Patient will demonstrate appropriate skin care techniques Outcome: Progressing Goal: LTG - Patient will be free from infection Outcome: Progressing Goal: STG - Patient demonstrates skin care/treatment/dressing change Outcome: Progressing Goal: STG - Patient will maintain good skin integrity Outcome: Progressing Goal: STG - Patient exhibits signs of wound healing. Outcome: Progressing Goal: STG - Patient demonstrates pressure reduction techniques Outcome: Progressing Goal: STG - Patient demonstrates preventative skin care measures Outcome: Progressing Problem: Knowledge Deficit Goal: Patient/family/caregiver demonstrates understanding of disease process, treatment plan, medications, and discharge instructions Description: Complete learning assessment and assess knowledge base. Outcome: Progressing Problem: Potential for Falls Goal: Patient will remain free of falls Description: Assess and monitor vitals signs, neurological status including level of consciousness and orientation. Reassess fall risk per hospital policy.Ensure arm band on, uncluttered walking paths in room, adequate room lighting, call light and overbed table within reach, bed in low position, wheels locked, side rails up per policy, and non-skid footwear provided. Outcome: Progressing * Plan of Care - Michael Santos RN - 04/09/2025 10:15 PM EDT Problem: Pain Goal: Patient's pain/discomfort is manageable Description: Assess and monitor patient's pain using appropriate pain scale. Collaborate with interdisciplinary team and initiate plan and interventions as ordered. Re-assess patient's pain level after pain management intervention. Outcome: Progressing Problem: Safety Goal: Patient will be injury free during hospitalization Description: Assess and monitor vitals signs, neurological status including level of consciousness and orientation. Assess patient's risk for falls and implement fall prevention plan of care and interventions per hospital policy. Ensure arm band on, uncluttered walking paths in room, adequate room lighting, call light and overbed table within reach, bed in low position, wheels locked, side rails up per policy, and non-skid footwear provided. Outcome: Progressing Problem: Potential for Developing a Blood Clot Goal: Tissue perfusion is adequate - venous Description: Assess and monitor skin color and temperature, skin integrity, pulses, capillary refill, edema, pain in extremities, Homans' sign, labs (D- dimer), and diagnostic tests (ultrasound, CT scan, VQ scan). Monitor for signs and symptoms of deep vein thrombosis (swelling of calf/thigh, redness, pain, tenderness). Monitor for signs and symptoms of pulmonary embolism (dyspnea, tachypnea, tachycardia). Collaborate with interdisciplinary team and initiate plans and interventions as needed Outcome: Progressing Problem: Daily Care Goal: Daily care needs are met Description: Assess and monitor ability to perform self care and identify potential discharge needs. Outcome: Progressing Problem: Potential for Infection Goal: Remains infection free Description: Assess and monitor vital signs, skin (color, moisture, integrity, turgor), respiratorystatus, urinary and gastrointestinal status, and labs (WBC, cultures). Administer antibiotics and antipyretics as ordered. Ensure aseptic care of all intravenous lines, invasive tubes/drains and wounds. Monitor for signs and symptoms of infection (redness, warmth, discharge, increased body temperature). Wash hands properly before and after each patient care activity. Follow isolation guidelines per hospital protocol/policy. Collaborate with interdisciplinary team and initiate plan and interventions as ordered. Outcome: Progressing Problem: Psychosocial Needs Goal: Demonstrates ability to cope with hospitalization/illness Description: Assess and monitor patients ability to cope with his/her illness. Outcome: Progressing Goal: Collaborate with patient/family/caregiver to identify patient specific goals for this hospitalization Outcome: Progressing Problem: Anxiety Goal: Anxiety is at manageable level Description: Assess and monitor patient's anxiety level. Monitor for signs and symptoms of anxiety both physical and emotional (heart palpitations, chest pain, shortness of breath, headaches, nausea,feeling jumpy, restlessness, irritable, apprehensive). Collaborate with interdisciplinary team and initiate plan and interventions as ordered. Outcome: Progressing Problem: Inadequate Coping Goal: Demonstrates ability to cope effectively Description: Patient is able to verbalize feelings related to emotional state. Outcome: Progressing Goal: Verbalizes adaptive coping mechanisms Description: Able to verbalize adaptive coping mechanisms such as physical activity, distraction, and deep breathing exercises. Outcome: Progressing Goal: Verbalizes personal strengths Description: Spend time with the patient using empathy and active listening skills. Outcome: Progressing Problem: Progressive Mobility Goal: BMAT Level 1 - With full mechanical lifting assistance: Outcome: Progressing Goal: BMAT Level 2 - With 2-person and/or mechanical lifting assistance: Outcome: Progressing Goal: BMAT Level 3 - With 1 to 2-person and/or mechanical lifting assistance: Outcome: Progressing Goal: BMAT Level 4 - With 1-person assistance or mobility aid as needed (walker, cane, crutches): Outcome: Progressing Problem: Discharge Barriers Goal: Patient's discharge needs are met Description: Collaborate with interdisciplinary team and initiate plans and interventions as needed. Outcome: Progressing Problem: Risk for Falls Goal: No falls during hospitalization Description: Patient will not fall during hospitalization. Outcome: Progressing Problem: Knowledge Deficit Goal: Knowledge - personal safety Description: Patient will verbalize understanding of fall prevention. Outcome: Progressing Problem: Compromised Skin Integrity Goal: LTG - Patient will be free from infection Outcome: Progressing Goal: LTG - Patient will maintain/improve skin integrity through proper skin care techniques Outcome: Progressing Goal: LTG - Patient will demonstrate appropriate pressure relief techniques Outcome: Progressing Goal: LTG - Patient will demonstrate appropriate skin care techniques Outcome: Progressing Goal: LTG - Patient will be free from infection Outcome: Progressing Goal: STG - Patient demonstrates skin care/treatment/dressing change Outcome: Progressing Goal: STG - Patient will maintain good skin integrity Outcome: Progressing Goal: STG - Patient exhibits signs of wound healing. Outcome: Progressing Goal: STG - Patient demonstrates pressure reduction techniques Outcome: Progressing Goal: STG - Patient demonstrates preventative skin care measures Outcome: Progressing * Plan of Care - Abby Iraheta RN - 04/09/2025 5:44 PM EDT Problem: Pain Goal: Patient's pain/discomfort is manageable Description: Assess and monitor patient's pain using appropriate pain scale. Collaborate with interdisciplinary team and initiate plan and interventions as ordered. Re-assess patient's pain level after pain management intervention. Outcome: Progressing Problem: Safety Goal: Patient will be injury free during hospitalization Description: Assess and monitor vitals signs, neurological status including level of consciousness and orientation. Assess patient's risk for falls and implement fall prevention plan of care and interventions per hospital policy. Ensure arm band on, uncluttered walking paths in room, adequate room lighting, call light and overbed table within reach, bed in low position, wheels locked, side rails up per policy, and non-skid footwear provided. Outcome: Progressing Problem: Potential for Developing a Blood Clot Goal: Tissue perfusion is adequate - venous Description: Assess and monitor skin color and temperature, skin integrity, pulses, capillary refill, edema, pain in extremities, Homans' sign, labs (D- dimer), and diagnostic tests (ultrasound, CT scan, VQ scan). Monitor for signs and symptoms of deep vein thrombosis (swelling of calf/thigh, redness, pain, tenderness). Monitor for signs and symptoms of pulmonary embolism (dyspnea, tachypnea, tachycardia). Collaborate with interdisciplinary team and initiate plans and interventions as needed Outcome: Progressing Problem: Daily Care Goal: Daily care needs are met Description: Assess and monitor ability to perform self care and identify potential discharge needs. Outcome: Progressing Problem: Potential for Infection Goal: Remains infection free Description: Assess and monitor vital signs, skin (color, moisture, integrity, turgor), respiratorystatus, urinary and gastrointestinal status, and labs (WBC, cultures). Administer antibiotics and antipyretics as ordered. Ensure aseptic care of all intravenous lines, invasive tubes/drains and wounds. Monitor for signs and symptoms of infection (redness, warmth, discharge, increased body temperature). Wash hands properly before and after each patient care activity. Follow isolation guidelines per hospital protocol/policy. Collaborate with interdisciplinary team and initiate plan and interventions as ordered. Outcome: Progressing Problem: Psychosocial Needs Goal: Demonstrates ability to cope with hospitalization/illness Description: Assess and monitor patients ability to cope with his/her illness. Outcome: Progressing Goal: Collaborate with patient/family/caregiver to identify patient specific goals for this hospitalization Outcome: Progressing Flowsheets (Taken 04/09/2025 [id number]) Cultural Requests During Hospitalization: none Spiritual Requests During Hospitalization: none Problem: Anxiety Goal: Anxiety is at manageable level Description: Assess and monitor patient's anxiety level. Monitor for signs and symptoms of anxiety both physical and emotional (heart palpitations, chest pain, shortness of breath, headaches, nausea,feeling jumpy, restlessness, irritable, apprehensive). Collaborate with interdisciplinary team and initiate plan and interventions as ordered. Outcome: Progressing Problem: Inadequate Coping Goal: Demonstrates ability to cope effectively Description: Patient is able to verbalize feelings related to emotional state. Outcome: Progressing Goal: Verbalizes adaptive coping mechanisms Description: Able to verbalize adaptive coping mechanisms such as physical activity, distraction, and deep breathing exercises. Outcome: Progressing Goal: Verbalizes personal strengths Description: Spend time with the patient using empathy and active listening skills. Outcome: Progressing Problem: Progressive Mobility Goal: BMAT Level 1 - With full mechanical lifting assistance: Outcome: Progressing Goal: BMAT Level 2 - With 2-person and/or mechanical lifting assistance: Outcome: Progressing Goal: BMAT Level 3 - With 1 to 2-person and/or mechanical lifting assistance: Outcome: Progressing Goal: BMAT Level 4 - With 1-person assistance or mobility aid as needed (walker, cane, crutches): Outcome: Progressing Problem: Discharge Barriers Goal: Patient's discharge needs are met Description: Collaborate with interdisciplinary team and initiate plans and interventions as needed. Outcome: Progressing Problem: Risk for Falls Goal: No falls during hospitalization Description: Patient will not fall during hospitalization. Outcome: Progressing Problem: Knowledge Deficit Goal: Knowledge - personal safety Description: Patient will verbalize understanding of fall prevention. 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 4:26 PM EDT documented as of this encounter Procedures Procedure Name Priority Date/Time Associated Diagnosis Comments CBC W/ AUTO DIFF Routine 04/16/2025 4:21 AM EDT CREATINE KINASE (CK) Add-On 04/16/2025 4:21 AM EDT BASIC METABOLIC PANEL Routine 04/16/2025 4:21 AM EDT NOVA GLUCOSE POC Routine 04/15/2025 10:4 7 PM EDT NOVA GLUCOSE POC Routine 04/15/2025 4:[address] ABDOMEN/PELVIS WITH IV CONTRAST KWASI 04/15/2025 4:[address] PELVIS WITHOUT IV CONTRAST KWASI 04/15/2025 4:21 PM EDT NOVA GLUCOSE POC Routine 04/15/2025 12:4 7 PM EDT NOVA GLUCOSE POC Routine 04/15/2025 6:40 AM EDT CBC W/ AUTO DIFF Routine 04/15/2025 5:11 AM EDT BASIC METABOLIC PANEL Routine 04/15/2025 5:11 AM EDT NOVA GLUCOSE POC Routine 04/14/2025 5:53 PM EDT NOVA GLUCOSE POC Routine 04/14/2025 12:3 3 PM EDT NOVA GLUCOSE POC Routine 04/14/2025 7:35 AM EDT CBC HEMOGRAM (SJ-BKR) Routine 04/14/2025 4:54 AM EDT BASIC METABOLIC PANEL Routine 04/14/2025 4:54 AM EDT NOVA GLUCOSE POC Routine 04/13/2025 11:1 4 AM EDT CBC HEMOGRAM (SJ-BKR) Routine 04/13/2025 7:08 AM EDT BASIC METABOLIC PANEL Routine 04/13/2025 7:08 AM EDT NOVA GLUCOSE POC Routine 04/12/2025 9:48 PM EDT NOVA GLUCOSE POC Routine 04/12/2025 4:49 PM EDT LACTIC ACID WITH REFLEX Routine 04/12/2025 3:50 PM EDT NOVA GLUCOSE POC Routine 04/12/2025 11:5 3 AM EDT NOVA GLUCOSE POC Routine 04/12/2025 8:27 AM EDT CBC W/MANUAL DIFF (SJ-BKR) Routine 04/12/2025 4:06 AM EDT MANUAL DIFFERENTIAL Routine 04/12/2025 4 :06 AM EDT COMPREHENSIVE METABOLIC PANEL Routine 04/12/2025 4:06 AM EDT NOVA GLUCOSE POC Routine 04/11/2025 11:0 8 PM EDT NOVA GLUCOSE POC Routine 04/11/2025 6:16 PM EDT MRSA SCREEN KWASI 04/11/2025 4:[address] DRAINAGE RETROPERITONEAL W GUIDANCE Routine 04/11/2025 4:28 PM EDT [facility] MICRO REFERENCE LAB Routine 04/11/2025 4:26 PM EDT Vesicointestinal fistula AFB CULTURE AND STAIN Routine 04/11/2025 4:26 PM EDT Vesicointestinal fistula SPIN/CONCENTRATION CHARGE Routine 04/11/2025 4:26 PM EDT Vesicointestinal fistula ANAEROBIC CULTURE Routine 04/11/2025 4:2 6 PM EDT Vesicointestinal fistula BODY FLUID CULTURE + GRAM STAIN Routine 04/11/2025 4:26 PM EDT Vesicointestinal fistula NOVA GLUCOSE POC Routine 04/11/2025 12:5 7 PM EDT XR CHEST AP PORTABLE STAT 04/11/2025 11:[address] ABDOMEN/PELVIS WITH IV CONTRAST KWASI 04/11/2025 9:34 AM EDT NOVA GLUCOSE POC Routine 04/11/2025 5:24 AM EDT CBC W/MANUAL DIFF (SJ-BKR) Routine 04/11/2025 3:26 AM EDT MANUAL DIFFERENTIAL Routine 04/11/2025 3 :26 AM EDT COMPREHENSIVE METABOLIC PANEL Routine 04/11/2025 3:26 AM EDT NOVA GLUCOSE POC Routine 04/10/2025 11:2 8 PM EDT NOVA GLUCOSE POC Routine 04/10/2025 6:15 PM EDT NOVA GLUCOSE POC Routine 04/10/2025 12:5 8 PM EDT NOVA GLUCOSE POC Routine 04/10/2025 5:39 AM EDT CBC W/ AUTO DIFF Routine 04/10/2025 3:22 AM EDT MAGNESIUM Routine 04/10/2025 3:22 AM EDT COMPREHENSIVE METABOLIC PANEL Routine 04/10/2025 3:22 AM EDT BASIC METABOLIC PANEL Routine 04/10/2025 3:22 AM EDT XR CHEST AP PORTABLE KWASI 04/09/2025 8:43 PM EDT CBC W/ AUTO DIFF STAT 04/09/2025 8:18 PM EDT LACTIC ACID WITH REFLEX STAT 04/09/2025 8:18 PM EDT CALCIUM, IONIZED STAT 04/09/2025 8:18 PM EDT PHOSPHORUS STAT 04/09/2025 8:18 PM EDT MAGNESIUM STAT 04/09/2025 8:18 PM EDT COMPREHENSIVE METABOLIC PANEL STAT 04/09/2025 8:18 PM EDT NOVA GLUCOSE POC Routine 04/09/2025 11:2 6 AM EDT TISSUE EXAM ([place]) AP Routine 04/09/2025 9 :50 AM EDT Vesicointestinal fistula [place] CYSTO W/INSERT URETERAL STENT 04/09/2025 7:46 AM EDT Vesicointestinal fistula Case Notes IN 529 , 3h (R), PASS, TAP BLOCK, PA REQUESTED, DR CANCINO DOING STENTS [place] COLECTOMY PRTL W/COLOPROCTOSTOMY 04/09/2025 7:46 AM EDT Vesicointestinal fistula Case Notes IN 529 , 3h (R), PASS, TAP BLOCK, PA REQUESTED, DR CANCINO DOING STENTS TYPE AND SCREEN ([place] BKR) STAT 04/09/2025 7:00 AM EDT ISTAT GLUCOSE POC Routine 04/09/2025 6:4 9 AM EDT POCT-POTASSIUM Routine 04/09/2025 6:49 AM EDT EKG-SCANNED 04/09/2025 documented in this encounter Results * (ABNORMAL) Creatine Kinase (CK) (04/16/2025 4:21 AM EDT) Total CK 22(L) 30 - 200 U/L 04/16/2025 11:11 AM EDT [facility] Blood ENTIRE RIGHT UPPER ARM / Unknown Venipuncture / Unknown 04/16/2025 4:21 AM EDT 04/16/2025 4:45 AM EDT us Murtaza Amato MD LAB BLOOD ORDERABLES Final Re sult [facility] [address] [phone] * (ABNORMAL) CBC with Automated Diff (04/16/2025 4:21 AM EDT) Pathologist [facility] WBC 12.8(H) 4.2 - 9.1 K/ L 04/16/2025 4:52 AM EDT [facility] RBC 3.35(L) 4.63 - 6.08 M/ L 04/16/2025 4:52 AM EDT [facility] Hemoglobin 9.2(L) 13.7 - 17.5 GM/DL 04/16/2025 4:52 AM EDT [facility] Hematocrit 28.6(L) 40.1 - 51.0 % 04/16/2025 4:52 AM EDT [facility] MCV 85 79 - 92 fL 04/16/2025 4:52 AM EDT [facility] MCH 27.5 25.7 - 32.2 pg 04/16/2025 4:52 AM EDT [facility] MCHC 32.2(L) 32.3 - 36.5 GM/DL 04/16/2025 4:52 AM EDT [facility] RDW 14.6(H) 11.6 - 14.4 % 04/16/2025 4:52 AM EDT [facility] Platelets 345 140 - 375 K/CU MM 04/16/2025 4:52 AM EDT [facility] MPV 8.6(L) 9.4 - 12.4 fL 04/16/2025 4:52 AM EDT [facility] % Neutros 71(H) 34 - 68 % 04/16/2025 4:52 AM EDT [facility] % Lymphs 14(L) 22 - 53 % 04/16/2025 4:52 AM EDT [facility] % Monos 11 5 - 12 % 04/16/2025 4:52 AM EDT [facility] % Eos 3 1 - 7 % 04/16/2025 4:52 AM EDT [facility] % Baso 0 0 - 1 % 04/16/2025 4:52 AM EDT [facility] NRBC Absolute <0.01 0 - 0.012 K/ul 04/16/2025 4:52 AM EDT [facility] # Neutros 9.08(H) 1.78 - 5.38 K/ L 04/16/2025 4:52 AM EDT [facility] # Lymphs 1.73 1.32 - 3.57 K/ L 04/16/2025 4:52 AM EDT [facility] # Monos 1.37(H) 0.30 - 0.82 K/ L 04/16/2025 4:52 AM EDT [facility] # Eos 0.42 0.04 - 0.54 K/ L 04/16/2025 4:52 AM EDT [facility] # Baso 0.04 0.01 - 0.08 K/ L 04/16/2025 4:52 AM EDT [facility] Immature Granulocytes-Re lative 1.50(H) 0.01 - 0.43 % 04/16/2025 4:52 AM EDT [facility] # IG 0.19(H) 0.00 - 0.03 K/uL 04/16/2025 4:52 AM EDT [facility] Blood ENTIRE RIGHT UPPER ARM / Unknown Venipuncture / Unknown 04/16/2025 4:21 AM EDT 04/16/2025 4:49 AM EDT Narrative [facility] - 04/16/2025 4:52 AM EDT When CBC w/ Auto Diff is ordered the lab will add a Manual Differential as a quality check at no additional charge if: Lymphocytes greater than seventy five percent with normal or increased WBC Monocytes greater than Fifteen percent Basophil greater than four percent Bands >10% or several immature myeloids are seen on scan Blast? Flag noted Atypical Lymph flag noted us Hilary Dumont MD LAB BLOOD ORDERABLES Final Re sult [facility] [address] [phone] * (ABNORMAL) Basic Metabolic Panel (04/16/2025 4:21 AM EDT) Sodium 139 136 - 145 meq/L 04/16/2025 5:30 AM EDT [facility] Potassium 3.6 3.4 - 5.1 meq/L 04/16/2025 5:30 AM EDT [facility] CO2 22 22 - 29 meq/L 04/16/2025 5:30 AM EDT [facility] Chloride 110 98 - 112 meq/L 04/16/2025 5:30 AM EDT [facility] Glucose 103 82 - 115 mg/dL 04/16/2025 5:30 AM EDT [facility] BUN 6.0(L) 8.4 - 25.7 mg/dL 04/16/2025 5:30 AM EDT [facility] Creatinine 0.71(L) 0.72 - 1.25 mg/dL 04/16/2025 5:30 AM EDT [facility] BUN/Creatinine 8 8 - 20 04/16/2025 5:30 AM EDT [facility] Calcium 7.9(L) 8.4 - 10.2 mg/dL 04/16/2025 5:30 AM EDT [facility] Anion Gap 11 4 - 12 04/16/2025 5:30 AM EDT [facility] eGFR (mL/min/1.73m2) 101 >=60 mL/min/1.7 3m2 04/16/2025 5:30 AM EDT [facility] Osmolality Calc 275.4 mOsm/kg 5:30 AM EDT [facility] Blood ENTIRE RIGHT UPPER ARM / Unknown Venipuncture / Unknown 04/16/2025 4:21 AM EDT 04/16/2025 4:45 AM EDT us Hilary Dumont MD LAB BLOOD ORDERABLES Final Re sult [facility] [address] [phone] * (ABNORMAL) Glucose, Nova Meter (04/15/2025 10:47 PM EDT) POC-GLUCOSE 133(H) 70 - 110 mg/dL 04/15/2025 10:49 PM EDT [facility] Comment: In the event of poor peripheral blood flow, venous or arterial blood should be used due to the potential of erroneous results. Protocols Followed Generation Technician [id number] 04/15/2025 10:49 PM EDT [facility] Blood WHOLE BLOOD / Unknown 04/15/2025 10:47 PM EDT 04/15/2025 10:49 PM EDT Narrative [facility] - 04/15/2025 10:49 PM EDT Generation Technician ID is - [id number] us Hilary Dumont MD POINT OF CARE TEST ORDERABLES Final Result Performing Organization Address [facility]/State/ZIP Co de Phone Number [facility] [address] [phone] * (ABNORMAL) Glucose, Nova Meter (04/15/2025 4:42 PM EDT) POC-GLUCOSE 121(H) 70 - 110 mg/dL 04/15/2025 4:43 PM EDT [facility] Comment: In the event of poor peripheral blood flow, venous or arterial blood should be used due to the potential of erroneous results. Protocols Followed Generation Technician [id number] 04/15/2025 4:43 PM EDT [facility] Blood WHOLE BLOOD / Unknown 04/15/2025 4:42 PM EDT 04/15/2025 4:43 PM EDT Narrative [facility] - 04/15/2025 4:43 PM EDT Generation Technician ID is - [id number] us Hilary Dumont MD POINT OF CARE TEST ORDERABLES Final Result [facility] [address] [phone] * CT ABDOMEN/PELVIS WITH IV CONTRAST Standard Protocol (04/15/2025 4:22 PM EDT) Anatomical Region Laterality Modality Abdomen, Pelvis Computed Tomogra phy (CT) 04/15/2025 4:32 PM EDT Impressions 04/15/2025 4:44 PM EDT Interval placement of a left pelvic drain with marked improvement in the left lower pelvis air and fluid collection. Otherwise no significant change since the prior CT. Cholelithiasis. 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 Contrast is seen within the urinary bladder from presumed CT cystogram. Sagittal and coronal reformatted images were also obtained. This study was performed with techniques to keep radiation doses as low as reasonably achievable, (ALARA). Individualized dose reduction techniques using automated exposure control or adjustment of mA and/or kV according to the patient size were employed. Contrast is seen extending from the anterior border of the urinary bladder to the left lateral lower pelvis fluid collection, well visualized on series 2 images 32-34. A drain is present in the lateral aspect of the cavity in the left lower pelvis, with significant interval improvement since the prior CT. A second left pelvic drain is present. A Torres catheter is present in the bladder. Postoperative changes are seen in the distal sigmoid colon. There is no evidence of bowel obstruction. No acute bony abnormality is identified. Degenerative changes are noted in the lower lumbar spine. There are bilateral L5 pars defects. IMPRESSION: Contrast leakage from the anterior bladder to the left lateral lower pelvic fluid collection consistent with a fistula. A drain is present within the left lower pelvis fluid collection with significant improvement since the prior CT. Images reviewed, interpreted, and dictated by Gunnar De La Paz MD Narrative 04/15/2025 4:[address] SCAN OF THE ABDOMEN AND PELVIS WITH CONTRAST HISTORY: Bladder fistula, mass. PROCEDURE: Axial CT images were obtained from the lung bases to the pubic symphysis with IV contrast administration. Oral contrast was also given. Coronal and sagittal reformatted images were also obtained and reviewed. This study was performed with techniques to keep radiation doses as low as reasonably achievable, (ALARA). Individualized dose reduction techniques using automated exposure control or adjustment of mA and/or kV according to the patient size were employed. COMPARISON: April 11, 2025. FINDINGS: LOWER CHEST: The heart is normal in size. Mild bilateral lower lobe atelectasis is seen with small pleural effusions. ABDOMEN/PELVIS: Liver, gallbladder and bile ducts: A small cyst is seen at the right liver dome. Several gallstones are seen in the gallbladder with mild gallbladder wall thickening. No significant biliary ductal dilatation. Adrenal glands: The adrenal glands are morphologically unremarkable without suspicious lesion. Kidneys, ureters and urinary bladder: A 25 mm cyst is seen at the anterior aspect of the right kidney, stable. Bilateral parapelvic renal cysts are present. No hydronephrosis. A Torres catheter is present in the bladder. There is significant bladder wall thickening and a small amount of air within the bladder. Spleen: The spleen is normal in size. Pancreas: The pancreas is unremarkable. Gastrointestinal system and mesentery: A right abdomen ostomy is present. Postoperative changes are seen in the distal sigmoid colon. Multiple fluid-filled bowel loops are seen. There is no evidence of bowel obstruction. The appendix is unremarkable. Mild diffuse mesenteric stranding is noted. Lymph nodes: No pathologically enlarged abdominal or pelvic lymph nodes are present. Vessels: The abdominal aorta is normal in caliber. The celiac trunk, superior mesenteric artery, inferior mesenteric artery and their branch vessels appear grossly patent. The superior mesenteric vein, splenic vein and main portal veins are patent. The inferior vena cava and hepatic veins are unremarkable. Peritoneum: No free intraperitoneal fluid or pneumoperitoneum. Pelvic viscera: There has been interval placement of a left lower pelvis straining with significant improvement in the left lower pelvis/inguinal air and fluid collection. A second left pelvic drain is again identified. Body wall: Postoperative changes are seen in the anterior abdomen and pelvic wall. No significant body wall hernias. Mild anasarca is noted. Bones: No acute fracture. Bilateral L5 pars defects are seen with grade 1 anterolisthesis of L5 on S1. Moderate degenerative changes are noted in the spine. Procedure Note Gunnar De La Paz MD - 04/15/2025 CT SCAN OF THE ABDOMEN AND PELVIS WITH CONTRAST HISTORY: Bladder fistula, mass. PROCEDURE: Axial CT images were obtained from the lung bases to the pubic symphysis with IV contrast administration. Oral contrast was also given. Coronal and sagittal reformatted images were also obtained and reviewed. This study was performed with techniques to keep radiation doses as low as reasonably achievable, (ALARA). Individualized dose reduction techniques using automated exposure control or adjustment of mA and/or kV according to the patient size were employed. COMPARISON: April 11, 2025. FINDINGS: LOWER CHEST: The heart is normal in size. Mild bilateral lower lobe atelectasis is seen with small pleural effusions. ABDOMEN/PELVIS: Liver, gallbladder and bile ducts: A small cyst is seen at the right liver dome. Several gallstones are seen in the gallbladder with mild gallbladder wall thickening. No significant biliary ductal dilatation. Adrenal glands: The adrenal glands are morphologically unremarkable without suspicious lesion. Kidneys, ureters and urinary bladder: A 25 mm cyst is seen at the anterior aspect of the right kidney, stable. Bilateral parapelvic renal cysts are present. No hydronephrosis. A Torres catheter is present in the bladder. There is significant bladder wall thickening and a small amount of air within the bladder. Spleen: The spleen is normal in size. Pancreas: The pancreas is unremarkable. Gastrointestinal system and mesentery: A right abdomen ostomy is present. Postoperative changes are seen in the distal sigmoid colon. Multiple fluid-filled bowel loops are seen. There is no evidence of bowel obstruction. The appendix is unremarkable. Mild diffuse mesenteric stranding is noted. Lymph nodes: No pathologically enlarged abdominal or pelvic lymph nodes are present. Vessels: The abdominal aorta is normal in caliber. The celiac trunk, superior mesenteric artery, inferior mesenteric artery and their branch vessels appear grossly patent. The superior mesenteric vein, splenic vein and main portal veins are patent. The inferior vena cava and hepatic veins are unremarkable. Peritoneum: No free intraperitoneal fluid or pneumoperitoneum. Pelvic viscera: There has been interval placement of a left lower pelvis straining with significant improvement in the left lower pelvis/inguinal air and fluid collection. A second left pelvic drain is again identified. Body wall: Postoperative changes are seen in the anterior abdomen and pelvic wall. No significant body wall hernias. Mild anasarca is noted. Bones: No acute fracture. Bilateral L5 pars defects are seen with grade 1 anterolisthesis of L5 on S1. Moderate degenerative changes are noted in the spine. IMPRESSION: Interval placement of a left pelvic drain with marked improvement in the left lower pelvis air and fluid collection. Otherwise no significant change since the prior CT. Cholelithiasis. 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 Contrast is seen within the urinary bladder from presumed CT cystogram. Sagittal and coronal reformatted images were also obtained. This study was performed with techniques to keep radiation doses as low as reasonably achievable, (ALARA). Individualized dose reduction techniques using automated exposure control or adjustment of mA and/or kV according to the patient size were employed. Contrast is seen extending from the anterior border of the urinary bladder to the left lateral lower pelvis fluid collection, well visualized on series 2 images 32-34. A drain is present in the lateral aspect of the cavity in the left lower pelvis, with significant interval improvement since the prior CT. A second left pelvic drain is present. A Torres catheter is present in the bladder. Postoperative changes are seen in the distal sigmoid colon. There is no evidence of bowel obstruction. No acute bony abnormality is identified. Degenerative changes are noted in the lower lumbar spine. There are bilateral L5 pars defects. IMPRESSION: Contrast leakage from the anterior bladder to the left lateral lower pelvic fluid collection consistent with a fistula. A drain is present within the left lower pelvis fluid collection with significant improvement since the prior CT. Images reviewed, interpreted, and dictated by Gunnar De La Paz MD Rebekah Lockhart MD IMG CT ORDERABLES Final Resu lt * CT pelvis without IV contrast (04/15/2025 4:21 PM EDT) Anatomical Region Laterality Modality Abdomen, Pelvis Computed Tomogra phy (CT) 04/15/2025 4:32 PM EDT Impressions 04/15/2025 4:44 PM EDT Interval placement of a left pelvic drain with marked improvement in the left lower pelvis air and fluid collection. Otherwise no significant change since the prior CT. Cholelithiasis. 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 Contrast is seen within the urinary bladder from presumed CT cystogram. Sagittal and coronal reformatted images were also obtained. This study was performed with techniques to keep radiation doses as low as reasonably achievable, (ALARA). Individualized dose reduction techniques using automated exposure control or adjustment of mA and/or kV according to the patient size were employed. Contrast is seen extending from the anterior border of the urinary bladder to the left lateral lower pelvis fluid collection, well visualized on series 2 images 32-34. A drain is present in the lateral aspect of the cavity in the left lower pelvis, with significant interval improvement since the prior CT. A second left pelvic drain is present. A Torres catheter is present in the bladder. Postoperative changes are seen in the distal sigmoid colon. There is no evidence of bowel obstruction. No acute bony abnormality is identified. Degenerative changes are noted in the lower lumbar spine. There are bilateral L5 pars defects. IMPRESSION: Contrast leakage from the anterior bladder to the left lateral lower pelvic fluid collection consistent with a fistula. A drain is present within the left lower pelvis fluid collection with significant improvement since the prior CT. Images reviewed, interpreted, and dictated by MD Ayad Gómez 04/15/2025 4:[address] SCAN OF THE ABDOMEN AND PELVIS WITH CONTRAST HISTORY: Bladder fistula, mass. PROCEDURE: Axial CT images were obtained from the lung bases to the pubic symphysis with IV contrast administration. Oral contrast was also given. Coronal and sagittal reformatted images were also obtained and reviewed. This study was performed with techniques to keep radiation doses as low as reasonably achievable, (ALARA). Individualized dose reduction techniques using automated exposure control or adjustment of mA and/or kV according to the patient size were employed. COMPARISON: April 11, 2025. FINDINGS: LOWER CHEST: The heart is normal in size. Mild bilateral lower lobe atelectasis is seen with small pleural effusions. ABDOMEN/PELVIS: Liver, gallbladder and bile ducts: A small cyst is seen at the right liver dome. Several gallstones are seen in the gallbladder with mild gallbladder wall thickening. No significant biliary ductal dilatation. Adrenal glands: The adrenal glands are morphologically unremarkable without suspicious lesion. Kidneys, ureters and urinary bladder: A 25 mm cyst is seen at the anterior aspect of the right kidney, stable. Bilateral parapelvic renal cysts are present. No hydronephrosis. A Torres catheter is present in the bladder. There is significant bladder wall thickening and a small amount of air within the bladder. Spleen: The spleen is normal in size. Pancreas: The pancreas is unremarkable. Gastrointestinal system and mesentery: A right abdomen ostomy is present. Postoperative changes are seen in the distal sigmoid colon. Multiple fluid-filled bowel loops are seen. There is no evidence of bowel obstruction. The appendix is unremarkable. Mild diffuse mesenteric stranding is noted. Lymph nodes: No pathologically enlarged abdominal or pelvic lymph nodes are present. Vessels: The abdominal aorta is normal in caliber. The celiac trunk, superior mesenteric artery, inferior mesenteric artery and their branch vessels appear grossly patent. The superior mesenteric vein, splenic vein and main portal veins are patent. The inferior vena cava and hepatic veins are unremarkable. Peritoneum: No free intraperitoneal fluid or pneumoperitoneum. Pelvic viscera: There has been interval placement of a left lower pelvis straining with significant improvement in the left lower pelvis/inguinal air and fluid collection. A second left pelvic drain is again identified. Body wall: Postoperative changes are seen in the anterior abdomen and pelvic wall. No significant body wall hernias. Mild anasarca is noted. Bones: No acute fracture. Bilateral L5 pars defects are seen with grade 1 anterolisthesis of L5 on S1. Moderate degenerative changes are noted in the spine. Procedure Note Gunnar De La Paz MD - 04/15/2025 CT SCAN OF THE ABDOMEN AND PELVIS WITH CONTRAST HISTORY: Bladder fistula, mass. PROCEDURE: Axial CT images were obtained from the lung bases to the pubic symphysis with IV contrast administration. Oral contrast was also given. Coronal and sagittal reformatted images were also obtained and reviewed. This study was performed with techniques to keep radiation doses as low as reasonably achievable, (ALARA). Individualized dose reduction techniques using automated exposure control or adjustment of mA and/or kV according to the patient size were employed. COMPARISON: April 11, 2025. FINDINGS: LOWER CHEST: The heart is normal in size. Mild bilateral lower lobe atelectasis is seen with small pleural effusions. ABDOMEN/PELVIS: Liver, gallbladder and bile ducts: A small cyst is seen at the right liver dome. Several gallstones are seen in the gallbladder with mild gallbladder wall thickening. No significant biliary ductal dilatation. Adrenal glands: The adrenal glands are morphologically unremarkable without suspicious lesion. Kidneys, ureters and urinary bladder: A 25 mm cyst is seen at the anterior aspect of the right kidney, stable. Bilateral parapelvic renal cysts are present. No hydronephrosis. A Torres catheter is present in the bladder. There is significant bladder wall thickening and a small amount of air within the bladder. Spleen: The spleen is normal in size. Pancreas: The pancreas is unremarkable. Gastrointestinal system and mesentery: A right abdomen ostomy is present. Postoperative changes are seen in the distal sigmoid colon. Multiple fluid-filled bowel loops are seen. There is no evidence of bowel obstruction. The appendix is unremarkable. Mild diffuse mesenteric stranding is noted. Lymph nodes: No pathologically enlarged abdominal or pelvic lymph nodes are present. Vessels: The abdominal aorta is normal in caliber. The celiac trunk, superior mesenteric artery, inferior mesenteric artery and their branch vessels appear grossly patent. The superior mesenteric vein, splenic vein and main portal veins are patent. The inferior vena cava and hepatic veins are unremarkable. Peritoneum: No free intraperitoneal fluid or pneumoperitoneum. Pelvic viscera: There has been interval placement of a left lower pelvis straining with significant improvement in the left lower pelvis/inguinal air and fluid collection. A second left pelvic drain is again identified. Body wall: Postoperative changes are seen in the anterior abdomen and pelvic wall. No significant body wall hernias. Mild anasarca is noted. Bones: No acute fracture. Bilateral L5 pars defects are seen with grade 1 anterolisthesis of L5 on S1. Moderate degenerative changes are noted in the spine. IMPRESSION: Interval placement of a left pelvic drain with marked improvement in the left lower pelvis air and fluid collection. Otherwise no significant change since the prior CT. Cholelithiasis. 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 Contrast is seen within the urinary bladder from presumed CT cystogram. Sagittal and coronal reformatted images were also obtained. This study was performed with techniques to keep radiation doses as low as reasonably achievable, (ALARA). Individualized dose reduction techniques using automated exposure control or adjustment of mA and/or kV according to the patient size were employed. Contrast is seen extending from the anterior border of the urinary bladder to the left lateral lower pelvis fluid collection, well visualized on series 2 images 32-34. A drain is present in the lateral aspect of the cavity in the left lower pelvis, with significant interval improvement since the prior CT. A second left pelvic drain is present. A Torres catheter is present in the bladder. Postoperative changes are seen in the distal sigmoid colon. There is no evidence of bowel obstruction. No acute bony abnormality is identified. Degenerative changes are noted in the lower lumbar spine. There are bilateral L5 pars defects. IMPRESSION: Contrast leakage from the anterior bladder to the left lateral lower pelvic fluid collection consistent with a fistula. A drain is present within the left lower pelvis fluid collection with significant improvement since the prior CT. Images reviewed, interpreted, and dictated by Gunnar De La Paz MD us Rebekah Lockhart MD IMG CT ORDERABLES Final Resu lt * (ABNORMAL) Glucose, Nova Meter (04/15/2025 12:47 PM EDT) POC-GLUCOSE 164(H) 70 - 110 mg/dL 04/15/2025 12:48 PM EDT [facility] Comment: In the event of poor peripheral blood flow, venous or arterial blood should be used due to the potential of erroneous results. Protocols Followed Generation Technician [id number] 04/15/2025 12:48 PM EDT [facility] Blood WHOLE BLOOD / Unknown 04/15/2025 12:47 PM EDT 04/15/2025 12:48 PM EDT Narrative [facility] - 04/15/2025 12:48 PM EDT Generation Technician ID is - [id number] us Hilary Dumont MD POINT OF CARE TEST ORDERABLES Final Result [facility] [address] [place] [address], [facility] [phone] * (ABNORMAL) Glucose, Nova Meter (04/15/2025 6:40 AM EDT) Pathologist [facility] POC-GLUCOSE 139(H) 70 - 110 mg/dL 04/15/2025 6:41 AM EDT [facility] Comment: In the event of poor peripheral blood flow, venous or arterial blood should be used due to the potential of erroneous results. Protocols Followed Generation Technician [id number] 04/15/2025 6:41 AM EDT [facility] Blood WHOLE BLOOD / Unknown 04/15/2025 6:40 AM EDT 04/15/2025 6:41 AM EDT Narrative [facility] - 04/15/2025 6:41 AM EDT Generation Technician ID is - [id number] Hilary Dumont MD POINT OF CARE TEST ORDERABLES Final Result [facility] [address] [phone] * (ABNORMAL) CBC with Automated Diff (04/15/2025 5:11 AM EDT) [facility] WBC 10.9(H) 4.2 - 9.1 K/ L 04/15/2025 5:33 AM EDT [facility] RBC 3.30(L) 4.63 - 6.08 M/ L 04/15/2025 5:33 AM EDT [facility] Hemoglobin 9.1(L) 13.7 - 17.5 GM/DL 04/15/2025 5:33 AM EDT [facility] Hematocrit 27.7(L) 40.1 - 51.0 % 04/15/2025 5:33 AM EDT [facility] MCV 84 79 - 92 fL 04/15/2025 5:33 AM EDT [facility] MCH 27.6 25.7 - 32.2 pg 04/15/2025 5:33 AM EDT [facility] MCHC 32.9 32.3 - 36.5 GM/DL 04/15/2025 5:33 AM EDT [facility] RDW 14.4 11.6 - 14.4 % 04/15/2025 5:33 AM EDT [facility] Platelets 288 140 - 375 K/CU MM 04/15/2025 5:33 AM EDT [facility] MPV 8.5(L) 9.4 - 12.4 fL 04/15/2025 5:33 AM EDT [facility] % Neutros 73(H) 34 - 68 % 04/15/2025 5:33 AM EDT [facility] % Lymphs 13(L) 22 - 53 % 04/15/2025 5:33 AM EDT [facility] % Monos 10 5 - 12 % 04/15/2025 5:33 AM EDT [facility] % Eos 3 1 - 7 % 04/15/2025 5:33 AM EDT [facility] % Baso 1 0 - 1 % 04/15/2025 5:33 AM EDT [facility] NRBC Absolute <0.01 0 - 0.012 K/ul 04/15/2025 5:33 AM EDT [facility] # Neutros 8.02(H) 1.78 - 5.38 K/ L 04/15/2025 5:33 AM EDT [facility] # Lymphs 1.38 1.32 - 3.57 K/ L 04/15/2025 5:33 AM EDT [facility] # Monos 1.07(H) 0.30 - 0.82 K/ L 04/15/2025 5:33 AM EDT [facility] # Eos 0.28 0.04 - 0.54 K/ L 04/15/2025 5:33 AM EDT [facility] # Baso 0.05 0.01 - 0.08 K/ L 04/15/2025 5:33 AM EDT [facility] Immature Granulocytes-Re lative 1.20(H) 0.01 - 0.43 % 04/15/2025 5:33 AM EDT [facility] # IG 0.13(H) 0.00 - 0.03 K/uL 04/15/2025 5:33 AM EDT [facility] Blood ENTIRE RIGHT UPPER ARM / Unknown Venipuncture / Unknown 04/15/2025 5:11 AM EDT 04/15/2025 5:26 AM EDT Narrative [facility] - 04/15/2025 5:33 AM EDT When CBC w/ Auto Diff is ordered the lab will add a Manual Differential as a quality check at no additional charge if: Lymphocytes greater than seventy five percent with normal or increased WBC Monocytes greater than Fifteen percent Basophil greater than four percent Bands >10% or several immature myeloids are seen on scan Blast? Flag noted Atypical Lymph flag noted us Hilary Dumont MD LAB BLOOD ORDERABLES Final Re sult [facility] [address] [phone] * (ABNORMAL) Basic Metabolic Panel (04/15/2025 5:11 AM EDT) Sodium 137 136 - 145 meq/L 04/15/2025 5:44 AM EDT [facility] Potassium 3.3(L) 3.4 - 5.1 meq/L 04/15/2025 5:44 AM EDT [facility] CO2 18(L) 22 - 29 meq/L 04/15/2025 5:44 AM EDT [facility] Chloride 110 98 - 112 meq/L 04/15/2025 5:44 AM EDT [facility] Glucose 155(H) 82 - 115 mg/dL 04/15/2025 5:44 AM EDT [facility] BUN 6.5(L) 8.4 - 25.7 mg/dL 04/15/2025 5:44 AM EDT [facility] Creatinine 0.74 0.72 - 1.25 mg/dL 04/15/2025 5:44 AM EDT [facility] BUN/Creatinine 9 8 - 20 04/15/2025 5:44 AM EDT [facility] Calcium 7.7(L) 8.4 - 10.2 mg/dL 04/15/2025 5:44 AM EDT [facility] Anion Gap 12 4 - 12 04/15/2025 5:44 AM EDT [facility] eGFR (mL/min/1.73m2) 100 >=60 mL/min/1.7 3m2 04/15/2025 5:44 AM EDT [facility] Osmolality Calc 274.8 mOsm/kg 5:44 AM EDT [facility] Blood ENTIRE RIGHT UPPER ARM / Unknown Venipuncture / Unknown 04/15/2025 5:11 AM EDT 04/15/2025 5:17 AM EDT Hilary Dumont MD LAB BLOOD ORDERABLES Final Re sult Performing Organization Address [facility] Co de Phone Number [facility] [address] [phone] * Glucose, Nova Meter (04/14/2025 5:53 PM EDT) POC-GLUCOSE 106 70 - 110 mg/dL 04/14/2025 5:54 PM EDT [facility] Comment: In the event of poor peripheral blood flow, venous or arterial blood should be used due to the potential of erroneous results. Protocols Followed Generation Technician [id number] 04/14/2025 5:54 PM EDT [facility] Blood WHOLE BLOOD / Unknown 04/14/2025 5:53 PM EDT 04/14/2025 5:54 PM EDT Narrative [facility] - 04/14/2025 5:54 PM EDT Generation Technician ID is - [id number] us Hilary Dumont MD POINT OF CARE TEST ORDERABLES Final Result Performing Organization Address [facility]/ZIP Co de Phone Number [facility] [address] [phone] * (ABNORMAL) Glucose, Nova Meter (04/14/2025 12:33 PM EDT) POC-GLUCOSE 132(H) 70 - 110 mg/dL 04/14/2025 12:34 PM EDT [facility] Comment: In the event of poor peripheral blood flow, venous or arterial blood should be used due to the potential of erroneous results. Protocols Followed Generation Technician [id number] 04/14/2025 12:34 PM EDT [facility] Blood WHOLE BLOOD / Unknown 04/14/2025 12:33 PM EDT 04/14/2025 12:34 PM EDT Narrative [facility] - 04/14/2025 12:34 PM EDT Generation Technician ID is - [id number] Hilary Dumont MD POINT OF CARE TEST ORDERABLES Final Result Performing Organization Address [facility] Co de Phone Number [facility] [address] [phone] * (ABNORMAL) Glucose, Nova Meter (04/14/2025 7:35 AM EDT) POC-GLUCOSE 118(H) 70 - 110 mg/dL 04/14/2025 7:38 AM EDT [facility] Comment: In the event of poor peripheral blood flow, venous or arterial blood should be used due to the potential of erroneous results. Protocols Followed Generation Technician [id number] 04/14/2025 7:38 AM EDT [facility] Blood WHOLE BLOOD / Unknown 04/14/2025 7:35 AM EDT 04/14/2025 7:38 AM EDT Narrative [facility] - 04/14/2025 7:38 AM EDT Generation Technician ID is - [id number] Lizzy Kramer MD POINT OF CARE TEST ORDERABLES F inal Result Performing Organization Address [facility] Co de Phone Number [facility] [address] [phone] * (ABNORMAL) CBC - Hemogram (SJ-BKR) (04/14/2025 4:54 AM EDT) WBC 9.0 4.2 - 9.1 K/ L 04/14/2025 5:17 AM EDT [facility] RBC 2.94(L) 4.63 - 6.08 M/ L 04/14/2025 5:17 AM EDT [facility] Hemoglobin 8.2(L) 13.7 - 17.5 GM/DL 04/14/2025 5:17 AM EDT [facility] Hematocrit 25.3(L) 40.1 - 51.0 % 04/14/2025 5:17 AM EDT [facility] MCV 86 79 - 92 fL 04/14/2025 5:17 AM EDT [facility] MCH 27.9 25.7 - 32.2 pg 04/14/2025 5:17 AM EDT [facility] MCHC 32.4 32.3 - 36.5 GM/DL 04/14/2025 5:17 AM EDT [facility] RDW 14.6(H) 11.6 - 14.4 % 04/14/2025 5:17 AM EDT [facility] Platelets 250 140 - 375 K/CU MM 04/14/2025 5:17 AM EDT [facility] MPV 8.8(L) 9.4 - 12.4 fL 04/14/2025 5:17 AM EDT [facility] Blood Venipuncture / Unknown 04/14/2025 4:54 AM EDT 04/14/2025 5:14 AM EDT us Lizzy Kramer MD LAB BLOOD ORDERABLES Final Resu lt [facility] [address] [phone] * (ABNORMAL) Basic Metabolic Panel (04/14/2025 4:54 AM EDT) Sodium 139 136 - 145 meq/L 04/14/2025 5:46 AM EDT [facility] Potassium 3.5 3.4 - 5.1 meq/L 04/14/2025 5:46 AM EDT [facility] CO2 16(L) 22 - 29 meq/L 04/14/2025 5:46 AM EDT [facility] Chloride 111 98 - 112 meq/L 04/14/2025 5:46 AM EDT [facility] Glucose 104 82 - 115 mg/dL 04/14/2025 5:46 AM EDT [facility] BUN 9.5 8.4 - 25.7 mg/dL 04/14/2025 5:46 AM EDT [facility] Creatinine 0.70(L) 0.72 - 1.25 mg/dL 04/14/2025 5:46 AM EDT [facility] BUN/Creatinine 14 8 - 20 04/14/2025 5:46 AM EDT [facility] Calcium 7.4(L) 8.4 - 10.2 mg/dL 04/14/2025 5:46 AM EDT [facility] Anion Gap 16(H) 4 - 12 04/14/2025 5:46 AM EDT [facility] eGFR (mL/min/1.73m2) 102 >=60 mL/min/1.7 3m2 04/14/2025 5:46 AM EDT [facility] Osmolality Calc 276.7 mOsm/kg 5:46 AM EDT [facility] Blood Venipuncture / Unknown 04/14/2025 4:54 AM EDT 04/14/2025 5:14 AM EDT us Lizzy Kramer MD LAB BLOOD ORDERABLES Final Resu lt [facility] [address] [phone] * (ABNORMAL) Glucose, Nova Meter (04/13/2025 11:14 AM EDT) POC-GLUCOSE 175(H) 70 - 110 mg/dL 04/13/2025 11:15 AM EDT [facility] Comment: In the event of poor peripheral blood flow, venous or arterial blood should be used due to the potential of erroneous results. Notified Nurse RBV Generation Technician [id number] 04/13/2025 11:15 AM EDT [facility] Blood WHOLE BLOOD / Unknown 04/13/2025 11:14 AM EDT 04/13/2025 11:15 AM EDT Narrative [facility] - 04/13/2025 11:15 AM EDT Generation Technician ID is - [id number] us Lizzy Kramer MD POINT OF CARE TEST ORDERABLES F inal Result [facility] [address] [place] [id number] [phone] * (ABNORMAL) Basic Metabolic Panel (04/13/2025 7:08 AM EDT) Sodium 139 136 - 145 meq/L 04/13/2025 7:47 AM EDT [facility] Potassium 3.4 3.4 - 5.1 meq/L 04/13/2025 7:47 AM EDT [facility] CO2 18(L) 22 - 29 meq/L 04/13/2025 7:47 AM EDT [facility] Chloride 111 98 - 112 meq/L 04/13/2025 7:47 AM EDT [facility] Glucose 116(H) 82 - 115 mg/dL 04/13/2025 7:47 AM EDT [facility] BUN 8.5 8.4 - 25.7 mg/dL 04/13/2025 7:47 AM EDT [facility] Creatinine 0.74 0.72 - 1.25 mg/dL 04/13/2025 7:47 AM EDT [facility] BUN/Creatinine 11 8 - 20 04/13/2025 7:47 AM EDT [facility] Calcium 8.1(L) 8.4 - 10.2 mg/dL 04/13/2025 7:47 AM EDT [facility] Anion Gap 13(H) 4 - 12 04/13/2025 7:47 AM EDT [facility] eGFR (mL/min/1.73m2) 100 >=60 mL/min/1.7 3m2 04/13/2025 7:47 AM EDT [facility] Osmolality Calc 277.0 mOsm/kg 7:47 AM EDT [facility] Blood Venipuncture / Unknown 04/13/2025 7:08 AM EDT 04/13/2025 7:28 AM EDT us Rebekah Lockhart MD LAB BLOOD ORDERABLES Final R esult [facility] [address] [place], [place] [address] [phone] * (ABNORMAL) CBC - Hemogram (SJ-BKR) (04/13/2025 7:08 AM EDT) WBC 11.1(H) 4.2 - 9.1 K/ L 04/13/2025 7:32 AM EDT [facility] RBC 3.24(L) 4.63 - 6.08 M/ L 04/13/2025 7:32 AM EDT [facility] Hemoglobin 9.2(L) 13.7 - 17.5 GM/DL 04/13/2025 7:32 AM EDT [facility] Hematocrit 27.6(L) 40.1 - 51.0 % 04/13/2025 7:32 AM EDT [facility] MCV 85 79 - 92 fL 04/13/2025 7:32 AM EDT [facility] MCH 28.4 25.7 - 32.2 pg 04/13/2025 7:32 AM EDT [facility] MCHC 33.3 32.3 - 36.5 GM/DL 04/13/2025 7:32 AM EDT [facility] RDW 14.5(H) 11.6 - 14.4 % 04/13/2025 7:32 AM EDT [facility] Platelets 241 140 - 375 K/CU MM 04/13/2025 7:32 AM EDT [facility] MPV 9.1(L) 9.4 - 12.4 fL 04/13/2025 7:32 AM EDT [facility] Blood Venipuncture / Unknown 04/13/2025 7:08 AM EDT 04/13/2025 7:28 AM EDT us Rebekah Lockhart MD LAB BLOOD ORDERABLES Final R esult [facility] [address] [phone] * (ABNORMAL) Glucose, Nova Meter (04/12/2025 9:48 PM EDT) POC-GLUCOSE 115(H) 70 - 110 mg/dL 04/12/2025 9:49 PM EDT [facility] Comment:In the event of poor peripheral blood flow, venous or arterial blood should be used due to the potential of erroneous results. Generation Technician [id number] 04/12/2025 9:49 PM EDT [facility] Blood WHOLE BLOOD / Unknown 04/12/2025 9:48 PM EDT 04/12/2025 9:49 PM EDT Narrative [facility] - 04/12/2025 9:49 PM EDT Generation Technician ID is - [id number] Lizzy Kramer MD POINT OF CARE TEST ORDERABLES F inal Result Performing Organization Address [facility] Co de Phone Number [facility] [address] [phone] * (ABNORMAL) Glucose, Nova Meter (04/12/2025 4:49 PM EDT) Pathologist [facility] POC-GLUCOSE 138(H) 70 - 110 mg/dL 04/12/2025 4:51 PM EDT [facility] Comment: In the event of poor peripheral blood flow, venous or arterial blood should be used due to the potential of erroneous results. Notified Nurse RBV Generation Technician [id number] 04/12/2025 4:51 PM EDT [facility] Blood WHOLE BLOOD / Unknown 04/12/2025 4:49 PM EDT 04/12/2025 4:51 PM EDT Narrative [facility] - 04/12/2025 4:51 PM EDT Generation Technician ID is - [id number] Lizzy Kramer MD POINT OF CARE TEST ORDERABLES F inal Result Performing Organization Address [facility]/ZIP Co de Phone Number [facility] [address] [phone] * Lactic Acid with reflex (SJ) (04/12/2025 3:50 PM EDT) Lactic Acid Level (mmol/L) 0.9 0.5 - 2.2 mmol/L 04/12/2025 4:41 PM EDT [facility] Blood ENTIRE LEFT UPPER ARM / Unknown Venipuncture / Unknown 04/12/2025 3:50 PM EDT 04/12/2025 4:17 PM EDT us Enirque Lopez MD LAB BLOOD ORDERABLES Final Resu lt Performing Organization Address City/[facility] Hospital/ZIP Co de Phone Number [facility] [address] [phone] * (ABNORMAL) Glucose, Nova Meter (04/12/2025 11:53 AM EDT) Pathologist [facility] POC-GLUCOSE 125(H) 70 - 110 mg/dL 04/12/2025 11:54 AM EDT [facility] Comment: In the event of poor peripheral blood flow, venous or arterial blood should be used due to the potential of erroneous results. Notified Nurse RBV Generation Technician [id number] 04/12/2025 11:54 AM EDT [facility] Blood WHOLE BLOOD / Unknown 04/12/2025 11:53 AM EDT 04/12/2025 11:54 AM EDT Narrative [facility] - 04/12/2025 11:54 AM EDT Generation Technician ID is - [id number] us Lizzy Kramer MD POINT OF CARE TEST ORDERABLES F inal Result Performing Organization Address City/[facility]/ZIP Co de Phone Number [facility] [address] [phone] * (ABNORMAL) Glucose, Nova Meter (04/12/2025 8:27 AM EDT) POC-GLUCOSE 133(H) 70 - 110 mg/dL 04/12/2025 8:28 AM EDT [facility] Comment: In the event of poor peripheral blood flow, venous or arterial blood should be used due to the potential of erroneous results. Notified Nurse RBV Generation Technician [id number] 04/12/2025 8:28 AM EDT [facility] Blood WHOLE BLOOD / Unknown 04/12/2025 8:27 AM EDT 04/12/2025 8:28 AM EDT Narrative [facility] - 04/12/2025 8:28 AM EDT Generation Technician ID is - [id number] us Lizzy Kramer MD POINT OF CARE TEST ORDERABLES F inal Result [facility] [address] [phone] * (ABNORMAL) Manual Differential (04/12/2025 4:06 AM EDT) Total Counted 100 04/12/2025 5:40 AM EDT [facility] % Neutros (manual) 83(H) 50 - 65 % 04/12/2025 5:40 AM EDT [facility] % Lymphs (manual) 5(L) 24 - 44 % 04/12/2025 5:40 AM EDT [facility] % Monos (manual) 10(H) 4 - 5 % 04/12/20 25 5:40 AM EDT [facility] % Baso (manual) 1 0 - 1 % 5:40 AM EDT [facility] % Metamyelo (manual) 1 0 - 1 % 04/12/2025 5:40 AM EDT [facility] RBC Morphology abnormal(A) Normal 5:40 AM EDT [facility] Platelet Estimate Adequate Adequate 04/12/2025 5:40 AM EDT [facility] Anisocytosis 1+ 04/12/2025 5:40 AM EDT [facility] Hypochromia 1+ 04/12/2025 5:40 AM EDT [facility] Ovalocytes 1+ 04/12/2025 5:40 AM EDT [facility] ANC# 10.54 K/ L 04/12/2025 5:40 AM EDT [facility] Blood ENTIRE RIGHT UPPER ARM / Unknown Venipuncture / Unknown 04/12/2025 4:06 AM EDT 04/12/2025 4:11 AM EDT us Murtaza Amato MD LAB BLOOD ORDERABLES Final Re sult [facility] [address] [phone] * (ABNORMAL) Comprehensive metabolic panel (04/12/2025 4:06 AM EDT) Sodium 137 136 - 145 meq/L 04/12/2025 4:56 AM EDT [facility] Potassium 3.9 3.4 - 5.1 meq/L 04/12/2025 4:56 AM EDT [facility] Chloride 107 98 - 112 meq/L 04/12/2025 4:56 AM EDT [facility] CO2 17(L) 22 - 29 meq/L 04/12/2025 4:56 AM EDT [facility] Calcium 8.3(L) 8.4 - 10.2 mg/dL 04/12/2025 4:56 AM EDT [facility] Glucose 94 82 - 115 mg/dL 04/12/2025 4:56 AM EDT [facility] BUN 10.7 8.4 - 25.7 mg/dL 04/12/2025 4:56 AM EDT [facility] Creatinine 0.83 0.72 - 1.25 mg/dL 04/12/2025 4:56 AM EDT [facility] BUN/Creatinine 13 8 - 20 04/12/2025 4:56 AM EDT [facility] eGFR (mL/min/1.73m2) 97 >=60 mL/min/1. 73m2 04/12/2025 4:56 AM EDT [facility] Albumin 2.7(L) 3.5 - 5.0 g/dL 04/12/2025 4:56 AM EDT [facility] Alkaline Phosphatase 52 40 - 150 U/L 04/12/2025 4:56 AM EDT [facility] ALT <7 <=45 U/L 04/12/2025 4:56 AM EDT [facility] Comment: ALT2 reagent used for testing does not contain P5P supplementation and therefore may miss ALT elevations in patients with B6 deficiency. This population may be as high as 10% in the [place], with risk factors including malabsorption, drug interactions, and alcoholic hepatitis. AST 10(L) 11 - 34 U/L 04/12/2025 4:56 AM EDT [facility] Comment: AST2 reagent used for testing does not contain P5P supplementation and therefore may miss AST elevations in patients with B6 deficiency. This population may be as high as 10% in the [place], with risk factors including malabsorption, drug interactions, and alcoholic hepatitis. Total Bilirubin 0.5 0.2 - 1.2 mg/dL 04/12/2025 4:56 AM EDT [facility] Protein, Total 6.0(L) 6.4 - 8.3 g/dL 04/12/2025 4:56 AM EDT [facility] Globulin 3.3 2.5 - 4.1 g/dL 04/12/2025 4:56 AM EDT [facility] Anion Gap 17(H) 4 - 12 04/12/2025 4:56 AM EDT [facility] A/G Ratio 0.8 0.7 - 1.9 04/12/2025 4:56 AM EDT [facility] Osmolality Calc 272.9 mOsm/kg 4:56 AM EDT [facility] Blood ENTIRE RIGHT UPPER ARM / Unknown Venipuncture / Unknown 04/12/2025 4:06 AM EDT 04/12/2025 4:11 AM EDT us Murtaza Amato MD LAB BLOOD ORDERABLES Final Re sult [facility] [address] [phone] * (ABNORMAL) CBC w Manual Diff (SJ-BKR) (04/12/2025 4:06 AM EDT) WBC 12.7(H) 4.2 - 9.1 K/ L 04/12/2025 4:24 AM EDT [facility] RBC 3.31(L) 4.63 - 6.08 M/ L 04/12/2025 4:24 AM EDT [facility] Hemoglobin 9.2(L) 13.7 - 17.5 GM/DL 04/12/2025 4:24 AM EDT [facility] Hematocrit 28.9(L) 40.1 - 51.0 % 04/12/2025 4:24 AM EDT [facility] MCV 87 79 - 92 fL 04/12/2025 4:24 AM EDT [facility] MCH 27.8 25.7 - 32.2 pg 04/12/2025 4:24 AM EDT [facility] MCHC 31.8(L) 32.3 - 36.5 GM/DL 04/12/2025 4:24 AM EDT [facility] RDW 14.7(H) 11.6 - 14.4 % 04/12/2025 4:24 AM EDT [facility] Platelets 225 140 - 375 K/CU MM 04/12/2025 4:24 AM EDT [facility] MPV 8.8(L) 9.4 - 12.4 fL 04/12/2025 4:24 AM EDT [facility] Blood ENTIRE RIGHT UPPER ARM / Unknown Venipuncture / Unknown 04/12/2025 4:06 AM EDT 04/12/2025 4:11 AM EDT Narrative [facility] - 04/12/2025 4:24 AM EDT Manual differentials can only be ordered once in a 24 hour time period. Please order CBC with Auto Diff if needed. Note: reference ranges were changed on 10/05/2023. us Murtaza Amato MD LAB BLOOD ORDERABLES Final Re sult [facility] [address] [phone] * Glucose, Nova Meter (04/11/2025 11:08 PM EDT) POC-GLUCOSE 99 70 - 110 mg/dL 04/11/2025 11:40 PM EDT [facility] Comment: In the event of poor peripheral blood flow, venous or arterial blood should be used due to the potential of erroneous results. Protocols Followed Generation Technician [id number] 04/11/2025 11:40 PM EDT [facility] Blood WHOLE BLOOD / Unknown 04/11/2025 11:08 PM EDT 04/11/2025 11:40 PM EDT Narrative [facility] - 04/11/2025 11:40 PM EDT Generation Technician ID is - [id number] Lizzy Kramer MD POINT OF CARE TEST ORDERABLES F inal Result Performing Organization Address [facility] Co de Phone Number [facility] [address] [phone] * Glucose, Nova Meter (04/11/2025 6:16 PM EDT) POC-GLUCOSE 90 70 - 110 mg/dL 04/11/2025 6:17 PM EDT [facility] Comment: In the event of poor peripheral blood flow, venous or arterial blood should be used due to the potential of erroneous results. Protocols Followed Generation Technician [id number] 04/11/2025 6:17 PM EDT [facility] Blood WHOLE BLOOD / Unknown 04/11/2025 6:16 PM EDT 04/11/2025 6:17 PM EDT Narrative [facility] - 04/11/2025 6:17 PM EDT Generation Technician ID is - [id number] us Lizzy Kramer MD POINT OF CARE TEST ORDERABLES F inal Result Performing Organization Address City/[facility]/ZIP Co de Phone Number [facility] [address] [phone] * MRSA Screen (04/11/2025 4:49 PM EDT) MRSA by PCR [facility] MRSA Not Detected by PCR MRSA Not Detected by PCR DEVICE [id number] 04/11/2025 7:22 PM EDT [facility] Nasal BOTH ANTERIOR NARES / Unknown 04/11/2025 4:49 PM EDT 04/11/2025 5:03 PM EDT us Murtaza Amato MD MICROBIOLOGY - GENERAL ORDERA BLES Final Result [facility] [address] [phone] * CT DRAINAGE PERITONEAL/RETROPERITONEAL W GUIDANCE (04/11/2025 4:28 PM EDT) Anatomical Region Laterality Modality Abdomen, Pelvis Computed Tomogra phy (CT) 04/11/2025 4:53 PM EDT Impressions 04/11/2025 4:58 PM EDT Status post CT guided percutaneous drain placement without immediate complication. Sample of the fluid was sent to lab for cultures. Images reviewed, interpreted, and dictated by Dr. Roro Gaviria. Transcribed by Jean Pierre Hughes PA-C Narrative 04/11/2025 4:[address] GUIDED DRAIN PLACEMENT HISTORY: Left groin abscess. . ATTENDING RADIOLOGIST: Dr. Gaviria. PHYSICIAN DIRECTOR [facility]: Jean Pierre Hughes PA-C. PROCEDURE: After informed consent was obtained and a time-out was performed, the patient was prepped and draped in the usual sterile fashion over the left groin. Utilizing local anesthesia and sterile technique with a catheter access needle, access to the fluid collection was obtained under direct CT guidance. An Amplatz wire was placed. Serial dilatation was performed. A 10 Brazilian pigtail catheter was placed looped in the fluid collection. Post drain placement films demonstrate the catheter in good position. The patient received moderate conscious sedation. The patient tolerated the procedure well and left the department in good condition. CONSCIOUS SEDATION: 1 mg of IV Versed and 75 mcg of Fentanyl were administered. Continuous vital sign monitoring was used. An RN was present during the sedation process. Overall sedation time was 15 minutes. Procedure Note Sally Gaviria MD - 04/11/2025 CT GUIDED DRAIN PLACEMENT HISTORY: Left groin abscess. . ATTENDING RADIOLOGIST: Dr. Gaviria. PHYSICIAN DIRECTOR [facility]: Jean Pierre Hughes PA-C. PROCEDURE: After informed consent was obtained and a time-out was performed, the patient was prepped and draped in the usual sterile fashion over the left groin. Utilizing local anesthesia and sterile technique with a catheter access needle, access to the fluid collection was obtained under direct CT guidance. An Amplatz wire was placed. Serial dilatation was performed. A 10 Brazilian pigtail catheter was placed looped in the fluid collection. Post drain placement films demonstrate the catheter in good position. The patient received moderate conscious sedation. The patient tolerated the procedure well and left the department in good condition. CONSCIOUS SEDATION: 1 mg of IV Versed and 75 mcg of Fentanyl were administered. Continuous vital sign monitoring was used. An RN was present during the sedation process. Overall sedation time was 15 minutes. IMPRESSION: Status post CT guided percutaneous drain placement without immediate complication. Sample of the fluid was sent to lab for cultures. Images reviewed, interpreted, and dictated by Dr. Roro Gaviria. Transcribed by Jean Pierre Hughes PA-C Kulwinder Donovan MD IMG CT ORDERABLES Final Result * SPIN/CONCENTRATION CHARGE (04/11/2025 4:26 PM EDT) Concentration charged Done 04/23/2025 10:48 AM EDT [facility] Body Fluid RETROPERITONEAL COMPARTMENT STRUCTURE / Unknown 04/11/2025 4:26 PM EDT 04/11/2025 4:52 PM EDT Kulwinder Donovan MD MICROBIOLOGY - GENERAL ORDERABLE S Final Result [facility] [address] [phone] * Micro Reference Lab (04/11/2025 4:26 PM EDT) Scan Result 04/27/2025 12:50 PM EDT [facility] NON-INTERFACED REFERENCE LAB Body Fluid RETROPERITONEAL COMPARTMENT STRUCTURE / Unknown 04/11/2025 4:26 PM EDT 04/11/2025 4:52 PM EDT us Kulwinder Donovan MD MICROBIOLOGY - GENERAL ORDERABLE S Final Result Performing Organization Address [facility] Co de Phone Number [facility] NON-INTERFACED REFERENCE LAB [facility] * (ABNORMAL) Anaerobic Culture (04/11/2025 4:26 PM EDT) Result Parabacteroides distasonis(A) 04/16/2025 7:19 AM EDT [facility] Body Fluid RETROPERITONEAL COMPARTMENT STRUCTURE / Unknown 04/11/2025 4:26 PM EDT 04/11/2025 4:52 PM EDT Kulwinder Donovan MD MICROBIOLOGY - GENERAL ORDERABLE S Final Result Performing Organization Address [facility] de Phone Number [facility] [address] [place] [address] * (ABNORMAL) Body Fluid Culture + Gram Stain (04/11/2025 4:26 PM EDT) Result Light Growth Enterococcus faecium(A) 04/16/2025 6:53 AM EDT [facility] Comment:Sent to reference la b for sensitivity testing. Result Light Growth Klebsiella pneumoniae(A) 04/16/2025 6:53 AM EDT [facility] Result Light Growth Clostridium tertium(A) 04/16/2025 6:53 AM EDT [facility] Comment:No susceptibility pe rformed Gram Stain Result Moderate gram positive cocci in pairs 04/16/2025 6:53 AM EDT [facility] Gram Stain Result Many WBCs 025 6:53 AM EDT [facility] Body Fluid RETROPERITONEAL COMPARTMENT STRUCTURE / Unknown 04/11/2025 4:26 PM EDT 04/11/2025 4:52 PM EDT Narrative Organism Antibiotic Method Susceptibility Klebsiella pneumoniae Amikacin <=16: Susceptible Klebsiella pneumoniae Amoxicillin + Clavulanate <=8/4: Susceptible Klebsiella pneumoniae Ampicillin >16: Resistant Klebsiella pneumoniae Ampicillin + Sulbactam 16/8: Intermediate Klebsiella pneumoniae Aztreonam <=4: Susceptible Klebsiella pneumoniae Cefazolin 4: Intermediate Klebsiella pneumoniae Cefepime <=2: Susceptible Klebsiella pneumoniae Cefotaxime <=2: Susceptible Klebsiella pneumoniae Cefoxitin 16: Intermediate Klebsiella pneumoniae Ceftazidime <=1: Susceptible Klebsiella pneumoniae Ceftriaxone <=1: Susceptible Klebsiella pneumoniae Cefuroxime 16: Intermediate Klebsiella pneumoniae Ciprofloxacin <=0.25: Susceptible Klebsiella pneumoniae Ertapenem <=0.5: Susceptible Klebsiella pneumoniae Gentamicin <=2: Susceptible Klebsiella pneumoniae Imipenem <=1: Susceptible Klebsiella pneumoniae Levofloxacin <=0.5: Susceptible Klebsiella pneumoniae Meropenem <=1: Susceptible Klebsiella pneumoniae Minocycline >8: Resistant Klebsiella pneumoniae Moxifloxacin <=2: Susceptible Klebsiella pneumoniae Piperacillin + Tazobactam <=8: Susceptible Klebsiella pneumoniae Tetracycline 8: Intermediate Klebsiella pneumoniae Tigecycline 4: Intermediate Klebsiella pneumoniae Tobramycin <=2: Susceptible Klebsiella pneumoniae Trimethoprim + Sulfamethoxazole 2/38: Susceptible us Kulwinder Donovan MD MICROBIOLOGY - GENERAL ORDERABLE S Final Result Performing Organization Address City/[facility]/ZIP Co de Phone Number [facility] [address] [phone] * Glucose, Nova Meter (04/11/2025 12:57 PM EDT) [facility] POC-GLUCOSE 99 70 - 110 mg/dL 04/11/2025 12:58 PM EDT [facility] Comment: In the event of poor peripheral blood flow, venous or arterial blood should be used due to the potential of erroneous results. Protocols Followed Generation Technician [id number] 04/11/2025 12:58 PM EDT [facility] Blood WHOLE BLOOD / Unknown 04/11/2025 12:57 PM EDT 04/11/2025 12:58 PM EDT Narrative [facility] - 04/11/2025 12:58 PM EDT Generation Technician ID is - [id number] Lizzy Kramer MD POINT OF CARE TEST ORDERABLES F inal Result [facility] [address] [phone] * XR chest AP portable (04/11/2025 11:55 AM EDT) Anatomical Region Laterality Modality Chest X-Ray 04/11/2025 12:2 4 PM EDT Impressions 04/11/2025 12:27 PM EDT There has been no significant interval change. Continued follow up recommended. Images reviewed, interpreted, and dictated by Dr. Roro Gaviria. Transcribed by Giovany Meza PA-C. Narrative 04/11/2025 12:27 PM EDT PORTABLE CHEST 04/11/2025 11:00 AM HISTORY: Shortness of air COMPARISON: April 09, 2025 FINDINGS: The patient is status post median sternotomy. The heart is stable in size. The lung sanchez demonstrate no significant change. There is no pneumothorax. The support devices are in good position. Procedure Note Sally Gaviria MD - 04/11/2025 PORTABLE CHEST 04/11/2025 11:00 AM HISTORY: Shortness of air COMPARISON: April 09, 2025 FINDINGS: The patient is status post median sternotomy. The heart is stable in size. The lung sanchez demonstrate no significant change. There is no pneumothorax. The support devices are in good position. IMPRESSION: There has been no significant interval change. Continued follow up recommended. Images reviewed, interpreted, and dictated by Dr. Roro Gaviria. Transcribed by Giovany Meza PA-C. us Enrique Lopez MD IMG DIAGNOSTIC IMAGING ORDERABL ES Final Result * CT ABDOMEN/PELVIS WITH IV CONTRAST Standard Protocol (04/11/2025 9:34 AM EDT) Anatomical Region Laterality Modality Abdomen, Pelvis Computed Tomogra phy (CT) 04/11/2025 10:0 0 AM EDT Impressions 04/11/2025 10:12 AM EDT Minimal free fluid and free air, consistent with recent operative intervention. Perinephric stranding is nonspecific but pyelonephritis is not excluded. Loculated fluid collection in the left inguinal canal could represent an abscess. Images reviewed, interpreted, and dictated by Roro Gaviria MD Narrative 04/11/2025 10:[address] SCAN OF THE ABDOMEN AND PELVIS WITH CONTRAST; 04/11/2025 9:34 AM HISTORY: Epigastric pain. COMPARISON: January 2018. PROCEDURE: The patient was injected with IV contrast. Axial images were obtained from the lung bases to the pubic symphysis by computed tomography. This study was performed with techniques to keep radiation doses as low as reasonably achievable, (ALARA). Individualized dose reduction techniques using automated exposure control or adjustment of mA and/or kV according to the patient size were employed. FINDINGS: ABDOMEN: There is marked degenerative disc disease throughout the lumbar spine. There is grade one anterolisthesis at L5-S1 with bilateral L5 pars defects. There is mild bibasilar atelectasis. There is a gallstone in the gallbladder. There is perinephric stranding bilaterally. There are peripelvic cysts bilaterally. There is a simple cyst projecting off the superior aspect of the right kidney. The solid organs are otherwise unremarkable. There is mesh in the anterior abdominal wall. There are skin alexandro in the anterior abdominal wall. There is trace ascites and free intraperitoneal air. There is a right abdominal ostomy. There is a ventral hernia in the anterior left abdomen containing a small amount of fluid and free air. PELVIS: The urinary bladder is decompressed by a Torres. There is flocculent fluid and debris extending into the left inguinal canal, likely representing an abscess. There is stranding in the anterior abdominal wall. Status post sigmoid colon resection. The appendix is not identified. The bowel loops are mildly distended. There is presacral stranding and fluid. There is stranding in the right inguinal canal. A surgical drain is looped in the pelvis. Procedure Note Sally Gaviria MD - 04/11/2025 CT SCAN OF THE ABDOMEN AND PELVIS WITH CONTRAST; 04/11/2025 9:34 AM HISTORY: Epigastric pain. COMPARISON: January 2018. PROCEDURE: The patient was injected with IV contrast. Axial images were obtained from the lung bases to the pubic symphysis by computed tomography. This study was performed with techniques to keep radiation doses as low as reasonably achievable, (ALARA). Individualized dose reduction techniques using automated exposure control or adjustment of mA and/or kV according to the patient size were employed. FINDINGS: ABDOMEN: There is marked degenerative disc disease throughout the lumbar spine. There is grade one anterolisthesis at L5-S1 with bilateral L5 pars defects. There is mild bibasilar atelectasis. There is a gallstone in the gallbladder. There is perinephric stranding bilaterally. There are peripelvic cysts bilaterally. There is a simple cyst projecting off the superior aspect of the right kidney. The solid organs are otherwise unremarkable. There is mesh in the anterior abdominal wall. There are skin alexandro in the anterior abdominal wall. There is trace ascites and free intraperitoneal air. There is a right abdominal ostomy. There is a ventral hernia in the anterior left abdomen containing a small amount of fluid and free air. PELVIS: The urinary bladder is decompressed by a Torres. There is flocculent fluid and debris extending into the left inguinal canal, likely representing an abscess. There is stranding in the anterior abdominal wall. Status post sigmoid colon resection. The appendix is not identified. The bowel loops are mildly distended. There is presacral stranding and fluid. There is stranding in the right inguinal canal. A surgical drain is looped in the pelvis. IMPRESSION: Minimal free fluid and free air, consistent with recent operative intervention. Perinephric stranding is nonspecific but pyelonephritis is not excluded. Loculated fluid collection in the left inguinal canal could represent an abscess. Images reviewed, interpreted, and dictated by Roro Gaviria MD us Rebekah Lockhart MD IMG CT ORDERABLES Final Resu lt * (ABNORMAL) Glucose, Nova Meter (04/11/2025 5:24 AM EDT) POC-GLUCOSE 119(H) 70 - 110 mg/dL 04/11/2025 5:26 AM EDT [facility] Comment: In the event of poor peripheral blood flow, venous or arterial blood should be used due to the potential of erroneous results. Protocols Followed Generation Technician [id number] 04/11/2025 5:26 AM EDT [facility] Blood WHOLE BLOOD / Unknown 04/11/2025 5:24 AM EDT 04/11/2025 5:26 AM EDT Narrative [facility] - 04/11/2025 5:26 AM EDT Generation Technician ID is - [id number] us Rebekah Lockhart MD POINT OF CARE TEST ORDERABLE S Final Result Performing Organization Address City/[facility]/ZIP Co de Phone Number [facility] [address] [place] [id number] [phone] * (ABNORMAL) Manual Differential (04/11/2025 3:26 AM EDT) Total Counted 100 04/11/2025 5:16 AM EDT [facility] % Neutros (manual) 88(H) 50 - 65 % 04/11/2025 5:16 AM EDT [facility] % Bands (manual) 3 % 04/11/20 25 5:16 AM EDT [facility] % Lymphs (manual) 6(L) 24 - 44 % 04/11/2025 5:16 AM EDT [facility] % Monos (manual) 3(L) 4 - 5 % 04/11/20 25 5:16 AM EDT [facility] RBC Morphology abnormal(A) Normal 5:16 AM EDT [facility] Platelet Estimate Adequate Adequate 04/11/2025 5:16 AM EDT [facility] Anisocytosis 1+ 04/11/2025 5:16 AM EDT [facility] Hypochromia 1+ 04/11/2025 5:16 AM EDT [facility] Ab Cells 1+ 04/11/2025 5:16 AM EDT [facility] Ovalocytes 1+ 04/11/2025 5:16 AM EDT [facility] ANC# 12.92 K/ L 04/11/2025 5:16 AM EDT [facility] Blood ENTIRE RIGHT UPPER ARM / Unknown Venipuncture / Unknown 04/11/2025 3:26 AM EDT 04/11/2025 3:31 AM EDT us Murtaza Amato MD LAB BLOOD ORDERABLES Final Re sult [facility] [address] [phone] * (ABNORMAL) Comprehensive metabolic panel (04/11/2025 3:26 AM EDT) Sodium 136 136 - 145 meq/L 04/11/2025 4:14 AM [facility] Potassium 4.0 3.4 - 5.1 meq/L 04/11/2025 4:14 AM [facility] Chloride 105 98 - 112 meq/L 04/11/2025 4:14 AM T [facility] CO2 18(L) 22 - 29 meq/L 04/11/2025 4:14 AM [facility] Calcium 8.7 8.4 - 10.2 mg/dL 04/11/2025 4:14 AM [facility] Glucose 116(H) 82 - 115 mg/dL 04/11/2025 4:14 AM [facility] BUN 10.7 8.4 - 25.7 mg/dL 04/11/2025 4:14 AM [facility] Creatinine 0.96 0.72 - 1.25 mg/dL 04/11/2025 4:14 AM [facility] BUN/Creatinine 11 8 - 20 04/11/2025 4:14 AM [facility] eGFR (mL/min/1.73m2) 87 >=60 mL/min/1. 73m2 04/11/2025 4:14 AM [facility] Albumin 3.0(L) 3.5 - 5.0 g/dL 04/11/2025 4:14 AM [facility] Alkaline Phosphatase 56 40 - 150 U/L 04/11/2025 4:14 AM [facility] ALT <7 <=45 U/L 04/11/2025 4:14 AM [facility] Comment: ALT2 reagent used for testing does not contain P5P supplementation and therefore may miss ALT elevations in patients with B6 deficiency. This population may be as high as 10% in the [place], with risk factors including malabsorption, drug interactions, and alcoholic hepatitis. AST 14 11 - 34 U/L 04/11/2025 4:14 AM EDT [facility] Comment: AST2 reagent used for testing does not contain P5P supplementation and therefore may miss AST elevations in patients with B6 deficiency. This population may be as high as 10% in the [place], with risk factors including malabsorption, drug interactions, and alcoholic hepatitis. Total Bilirubin 0.8 0.2 - 1.2 mg/dL 04/11/2025 4:14 AM EDT [facility] Protein, Total 6.3(L) 6.4 - 8.3 g/dL 04/11/2025 4:14 AM EDT [facility] Globulin 3.3 2.5 - 4.1 g/dL 04/11/2025 4:14 AM EDT [facility] Anion Gap 17(H) 4 - 12 04/11/2025 4:14 AM EDT [facility] A/G Ratio 0.9 0.7 - 1.9 04/11/2025 4:14 AM EDT [facility] Osmolality Calc 272.2 mOsm/kg 4:14 AM EDT [facility] Blood ENTIRE RIGHT UPPER ARM / Unknown Venipuncture / Unknown 04/11/2025 3:26 AM EDT 04/11/2025 3:31 AM EDT us Murtaza Amato MD LAB BLOOD ORDERABLES Final Re sult [facility] [address] [phone] * (ABNORMAL) CBC w Manual Diff (SJ-BKR) (04/11/2025 3:26 AM EDT) WBC 14.2(H) 4.2 - 9.1 K/ L 04/11/2025 3:33 AM EDT [facility] RBC 3.54(L) 4.63 - 6.08 M/ L 04/11/2025 3:33 AM EDT [facility] Hemoglobin 9.8(L) 13.7 - 17.5 GM/DL 04/11/2025 3:33 AM EDT [facility] Hematocrit 30.2(L) 40.1 - 51.0 % 04/11/2025 3:33 AM EDT [facility] MCV 85 79 - 92 fL 04/11/2025 3:33 AM EDT [facility] MCH 27.7 25.7 - 32.2 pg 04/11/2025 3:33 AM EDT [facility] MCHC 32.5 32.3 - 36.5 GM/DL 04/11/2025 3:33 AM EDT [facility] RDW 14.7(H) 11.6 - 14.4 % 04/11/2025 3:33 AM EDT [facility] Platelets 215 140 - 375 K/CU MM 04/11/2025 3:33 AM EDT [facility] MPV 8.4(L) 9.4 - 12.4 fL 04/11/2025 3:33 AM EDT [facility] Blood ENTIRE RIGHT UPPER ARM / Unknown Venipuncture / Unknown 04/11/2025 3:26 AM EDT 04/11/2025 3:31 AM EDT Narrative [facility] - 04/11/2025 3:33 AM EDT Manual differentials can only be ordered once in a 24 hour time period. Please order CBC with Auto Diff if needed. Note: reference ranges were changed on 10/05/2023. us Murtaza Amato MD LAB BLOOD ORDERABLES Final Re sult [facility] [address] [phone] * (ABNORMAL) Glucose, Nova Meter (04/10/2025 11:28 PM EDT) POC-GLUCOSE 132(H) 70 - 110 mg/dL 04/10/2025 11:29 PM EDT [facility] Comment: In the event of poor peripheral blood flow, venous or arterial blood should be used due to the potential of erroneous results. Protocols Followed Generation Technician [id number] 04/10/2025 11:29 PM EDT [facility] Blood WHOLE BLOOD / Unknown 04/10/2025 11:28 PM EDT 04/10/2025 11:29 PM EDT Narrative [facility] - 04/10/2025 11:29 PM EDT Generation Technician ID is - [id number] us Rebekah Lockhart MD POINT OF CARE TEST ORDERABLE S Final Result [facility] [address] [phone] * (ABNORMAL) Glucose, Nova Meter (04/10/2025 6:15 PM EDT) POC-GLUCOSE 115(H) 70 - 110 mg/dL 04/10/2025 6:16 PM EDT [facility] Comment: In the event of poor peripheral blood flow, venous or arterial blood should be used due to the potential of erroneous results. Notified Nurse RBV Generation Technician [id number] 04/10/2025 6:16 PM EDT [facility] Blood WHOLE BLOOD / Unknown 04/10/2025 6:15 PM EDT 04/10/2025 6:16 PM EDT Narrative [facility] - 04/10/2025 6:16 PM EDT Generation Technician ID is - [id number] us Rebekah Lockhart MD POINT OF CARE TEST ORDERABLE S Final Result [facility] [address] [phone] * (ABNORMAL) Glucose, Nova Meter (04/10/2025 12:58 PM EDT) POC-GLUCOSE 112(H) 70 - 110 mg/dL 04/10/2025 12:58 PM EDT [facility] Comment: In the event of poor peripheral blood flow, venous or arterial blood should be used due to the potential of erroneous results. Notified Nurse RBV Generation Technician [id number] 04/10/2025 12:58 PM EDT [facility] Blood WHOLE BLOOD / Unknown 04/10/2025 12:58 PM EDT 04/10/2025 12:58 PM EDT Narrative [facility] - 04/10/2025 12:58 PM EDT Generation Technician ID is - [id number] Rebekah Lockhart MD POINT OF CARE TEST ORDERABLE S Final Result Performing Organization Address [facility] de Phone Number [facility] [address] [phone] * (ABNORMAL) Glucose, Nova Meter (04/10/2025 5:39 AM EDT) POC-GLUCOSE 128(H) 70 - 110 mg/dL 04/10/2025 5:40 AM EDT [facility] Comment: In the event of poor peripheral blood flow, venous or arterial blood should be used due to the potential of erroneous results. Protocols Followed Generation Technician [id number] 04/10/2025 5:40 AM EDT [facility] Blood WHOLE BLOOD / Unknown 04/10/2025 5:39 AM EDT 04/10/2025 5:40 AM EDT Narrative [facility] - 04/10/2025 5:40 AM EDT Generation Technician ID is - [id number] Rebekah Lockhart MD POINT OF CARE TEST ORDERABLE S Final Result Performing Organization Address [facility] Co de Phone Number [facility] [address] [phone] * (ABNORMAL) Basic Metabolic Panel (04/10/2025 3:22 AM EDT) Sodium 137 136 - 145 meq/L 04/10/2025 4:06 AM EDT [facility] Potassium 4.5 3.4 - 5.1 meq/L 04/10/2025 4:06 AM EDT [facility] CO2 20(L) 22 - 29 meq/L 04/10/2025 4:06 AM EDT [facility] Chloride 108 98 - 112 meq/L 04/10/2025 4:06 AM EDT [facility] Glucose 146(H) 82 - 115 mg/dL 04/10/2025 4:06 AM EDT [facility] BUN 10.9 8.4 - 25.7 mg/dL 04/10/2025 4:06 AM EDT [facility] Creatinine 0.84 0.72 - 1.25 mg/dL 04/10/2025 4:06 AM EDT [facility] BUN/Creatinine 13 8 - 20 04/10/2025 4:06 AM EDT [facility] Calcium 8.1(L) 8.4 - 10.2 mg/dL 04/10/2025 4:06 AM EDT [facility] Anion Gap 14(H) 4 - 12 04/10/2025 4:06 AM EDT [facility] eGFR (mL/min/1.73m2) 96 >=60 mL/min/1.7 3m2 04/10/2025 4:06 AM EDT [facility] Osmolality Calc 275.8 mOsm/kg 4:06 AM EDT [facility] Blood Venipuncture / Unknown 04/10/2025 3:22 AM EDT 04/10/2025 3:32 AM EDT us Rebekah Lockhart MD LAB BLOOD ORDERABLES Final R esult Performing Organization Address [facility]/ZIP Co de Phone Number [facility] [address] [phone] * Magnesium (04/10/2025 3:22 AM EDT) Magnesium 1.7 1.6 - 2.6 mg/dL 04/10/2025 4:06 AM EDT [facility] Blood Venipuncture / Unknown 04/10/2025 3:22 AM EDT 04/10/2025 3:32 AM EDT us Jah Long DO LAB BLOOD ORDERABLES Final Re sult [facility] [address] [phone] * (ABNORMAL) Comprehensive metabolic panel (04/10/2025 3:22 AM EDT) Sodium 137 136 - 145 meq/L 04/10/2025 4:09 AM [facility] Potassium 4.5 3.4 - 5.1 meq/L 04/10/2025 4:09 AM [facility] Chloride 108 98 - 112 meq/L 04/10/2025 4:09 AM [facility] CO2 20(L) 22 - 29 meq/L 04/10/2025 4:09 AM [facility] Calcium 8.1(L) 8.4 - 10.2 mg/dL 04/10/2025 4:09 AM [facility] Glucose 146(H) 82 - 115 mg/dL 04/10/2025 4:09 AM [facility] BUN 10.9 8.4 - 25.7 mg/dL 04/10/2025 4:09 AM [facility] Creatinine 0.84 0.72 - 1.25 mg/dL 04/10/2025 4:09 AM [facility] BUN/Creatinine 13 8 - 20 04/10/2025 4:09 AM [facility] eGFR (mL/min/1.73m2) 96 >=60 mL/min/1. 73m2 04/10/2025 4:09 AM [facility] Albumin 2.8(L) 3.5 - 5.0 g/dL 04/10/2025 4:09 AM [facility] Alkaline Phosphatase 50 40 - 150 U/L 04/10/2025 4:09 AM [facility] ALT <7 <=45 U/L 04/10/2025 4:09 AM [facility] Comment: ALT2 reagent used for testing does not contain P5P supplementation and therefore may miss ALT elevations in patients with B6 deficiency. This population may be as high as 10% in the [place], with risk factors including malabsorption, drug interactions, and alcoholic hepatitis. AST 10(L) 11 - 34 U/L 04/10/2025 4:09 AM EDT [facility] Comment: AST2 reagent used for testing does not contain P5P supplementation and therefore may miss AST elevations in patients with B6 deficiency. This population may be as high as 10% in the [place], with risk factors including malabsorption, drug interactions, and alcoholic hepatitis. Total Bilirubin 0.8 0.2 - 1.2 mg/dL 04/10/2025 4:09 AM EDT [facility] Protein, Total 5.7(L) 6.4 - 8.3 g/dL 04/10/2025 4:09 AM EDT [facility] Globulin 2.9 2.5 - 4.1 g/dL 04/10/2025 4:09 AM EDT [facility] Anion Gap 14(H) 4 - 12 04/10/2025 4:09 AM EDT [facility] A/G Ratio 1.0 0.7 - 1.9 04/10/2025 4:09 AM EDT [facility] Osmolality Calc 275.8 mOsm/kg 4:09 AM EDT [facility] Blood Venipuncture / Unknown 04/10/2025 3:22 AM EDT 04/10/2025 3:32 AM EDT us Ismaeedavid Kolbqi DO LAB BLOOD ORDERABLES Final Re sult [facility] [address] [phone] * (ABNORMAL) CBC with automated diff (04/10/2025 3:22 AM EDT) WBC 16.0(H) 4.2 - 9.1 K/ L 04/10/2025 4:08 AM EDT [facility] RBC 3.39(L) 4.63 - 6.08 M/ L 04/10/2025 4:08 AM EDT [facility] Hemoglobin 9.3(L) 13.7 - 17.5 GM/DL 04/10/2025 4:08 AM EDT [facility] Hematocrit 29.0(L) 40.1 - 51.0 % 04/10/2025 4:08 AM EDT [facility] MCV 86 79 - 92 fL 04/10/2025 4:08 AM EDT [facility] MCH 27.4 25.7 - 32.2 pg 04/10/2025 4:08 AM EDT [facility] MCHC 32.1(L) 32.3 - 36.5 GM/DL 04/10/2025 4:08 AM EDT [facility] RDW 14.8(H) 11.6 - 14.4 % 04/10/2025 4:08 AM EDT [facility] Platelets 241 140 - 375 K/CU MM 04/10/2025 4:08 AM EDT [facility] MPV 8.7(L) 9.4 - 12.4 fL 04/10/2025 4:08 AM EDT [facility] Nucleated Red Blood Cell 0.0 0 - 0.2 % 04/10/2025 4:08 AM EDT [facility] % Neutros 82(H) 34 - 68 % 04/10/2025 4:08 AM EDT [facility] % Lymphs 6(L) 22 - 53 % 04/10/2025 4:08 AM EDT [facility] % Monos 11 5 - 12 % 04/10/2025 4:08 AM EDT [facility] % Eos 0(L) 1 - 7 % 04/10/2025 4:08 AM EDT [facility] % Baso 0 0 - 1 % 04/10/2025 4:08 AM EDT [facility] NRBC Absolute <0.01 0 - 0.012 K/ul 04/10/2025 4:08 AM EDT [facility] # Neutros 12.81(H) 1.78 - 5.38 K/ L 04/10/2025 4:08 AM EDT [facility] # Lymphs 0.98(L) 1.32 - 3.57 K/ L 04/10/2025 4:08 AM EDT [facility] # Monos 1.72(H) 0.30 - 0.82 K/ L 04/10/2025 4:08 AM EDT [facility] # Eos <0.03(L) 0.04 - 0.54 K/ L 04/10/2025 4:08 AM EDT [facility] # Baso <0.03 0.01 - 0.08 K/ L 04/10/2025 4:08 AM EDT [facility] Immature Granulocytes-Re lative 0.60(H) 0.01 - 0.43 % 04/10/2025 4:08 AM EDT [facility] # IG 0.10(H) 0.00 - 0.03 K/uL 04/10/2025 4:08 AM EDT [facility] Blood Venipuncture / Unknown 04/10/2025 3:22 AM EDT 04/10/2025 3:31 AM EDT Narrative [facility] - 04/10/2025 4:08 AM EDT When CBC w/ Auto Diff is ordered the lab will add a Manual Differential as a quality check at no additional charge if: Lymphocytes greater than seventy five percent with normal or increased WBC Monocytes greater than Fifteen percent Basophil greater than four percent Bands >10% or several immature myeloids are seen on scan Blast? Flag noted Atypical Lymph flag noted [facility] LAB BLOOD ORDERABLES Final Re sult [facility] [address] [phone] * XR chest AP portable (04/09/2025 8:43 PM EDT) Anatomical Region Laterality Modality Chest X-Ray 04/10/2025 7:47 AM EDT Impressions 04/10/2025 10:14 AM EDT Interval placement of nasogastric tube. Side port terminates at the GE junction. Mild increased interstitial markings may represent mild edema. Images reviewed, interpreted, and dictated by Dr. Jeanie Melton. Transcribed by Jean Pierre Hughes PA-C Narrative 04/10/2025 10:14 AM EDT PORTABLE CHEST 04/09/2025 8:38 PM HISTORY: Acute shortness of breath. COMPARISON: March 12, 2025. FINDINGS: The heart is normal in size . The mediastinum is unremarkable . There are mild increased interstitial markings. There is no significant pleural effusion. There is no pneumothorax . Status post median sternotomy. A new nasogastric tube tip terminates in the stomach. The side port terminates at the gastroesophageal junction. Procedure Note Jeanie Melton MD - 04/10/2025 PORTABLE CHEST 04/09/2025 8:38 PM HISTORY: Acute shortness of breath. COMPARISON: March 12, 2025. FINDINGS: The heart is normal in size . The mediastinum is unremarkable . There are mild increased interstitial markings. There is no significant pleural effusion. There is no pneumothorax . Status post median sternotomy. A new nasogastric tube tip terminates in the stomach. The side port terminates at the gastroesophageal junction. IMPRESSION: Interval placement of nasogastric tube. Side port terminates at the GE junction. Mild increased interstitial markings may represent mild edema. Images reviewed, interpreted, and dictated by Dr. Jeanie Melton. Transcribed by Jean Pierre Hughes PA-C Wesley Goncalves APRN IMG DIAGNOSTIC IMAGING ORDERAB LES Final Result * Phosphorus (04/09/2025 8:18 PM EDT) Phosphorus 3.5 2.5 - 4.5 mg/dL 04/09/2025 8:48 PM EDT [facility] Blood Venipuncture / Unknown 04/09/2025 8:18 PM EDT 04/09/2025 8:24 PM EDT Wesley Goncalves APRN LAB BLOOD ORDERABLES Final Res ult [facility] [address] [phone] * Magnesium (04/09/2025 8:18 PM EDT) Magnesium 1.7 1.6 - 2.6 mg/dL 04/09/2025 8:48 PM EDT [facility] Blood Venipuncture / Unknown 04/09/2025 8:18 PM EDT 04/09/2025 8:24 PM EDT us Wesley Goncalves APRN LAB BLOOD ORDERABLES Final Res ult Performing Organization Address City/[facility]/ZIP Co de Phone Number [facility] [address] [phone] * Lactic Acid with reflex (SJ) (04/09/2025 8:18 PM EDT) Lactic Acid Level (mmol/L) 1.1 0.5 - 2.2 mmol/L 04/09/2025 9:08 PM EDT [facility] Blood Venipuncture / Unknown 04/09/2025 8:18 PM EDT 04/09/2025 8:24 PM EDT Wesley Goncalves APRN LAB BLOOD ORDERABLES Final Res ult Performing Organization Address [facility] Co de Phone Number [facility] [address] [phone] * (ABNORMAL) Comprehensive metabolic panel (04/09/2025 8:18 PM EDT) Sodium 138 136 - 145 meq/L 04/09/2025 8:52 PM EDT [facility] Potassium 4.7 3.4 - 5.1 meq/L 04/09/2025 8:52 PM EDT [facility] Chloride 109 98 - 112 meq/L 04/09/2025 8:52 PM EDT [facility] CO2 18(L) 22 - 29 meq/L 04/09/2025 8:52 PM EDT [facility] Calcium 8.2(L) 8.4 - 10.2 mg/dL 04/09/2025 8:52 PM EDT [facility] Glucose 168(H) 82 - 115 mg/dL 04/09/2025 8:52 PM EDT [facility] BUN 10.6 8.4 - 25.7 mg/dL 04/09/2025 8:52 PM EDT [facility] Creatinine 1.00 0.72 - 1.25 mg/dL 04/09/2025 8:52 PM [facility] BUN/Creatinine 11 8 - 20 04/09/2025 8:52 PM [facility] eGFR (mL/min/1.73m2) 83 >=60 mL/min/1. 73m2 04/09/2025 8:52 PM [facility] Albumin 3.1(L) 3.5 - 5.0 g/dL 04/09/2025 8:52 PM [facility] Alkaline Phosphatase 55 40 - 150 U/L 04/09/2025 8:52 PM [facility] ALT <7 <=45 U/L 04/09/2025 8:52 PM [facility] Comment: ALT2 reagent used for testing does not contain P5P supplementation and therefore may miss ALT elevations in patients with B6 deficiency. This population may be as high as 10% in the [place], with risk factors including malabsorption, drug interactions, and alcoholic hepatitis. AST 10(L) 11 - 34 U/L 04/09/2025 8:52 PM [facility] Comment: AST2 reagent used for testing does not contain P5P supplementation and therefore may miss AST elevations in patients with B6 deficiency. This population may be as high as 10% in the [place], with risk factors including malabsorption, drug interactions, and alcoholic hepatitis. Total Bilirubin 0.7 0.2 - 1.2 mg/dL 04/09/2025 8:52 PM [facility] Protein, Total 6.1(L) 6.4 - 8.3 g/dL 04/09/2025 8:52 PM [facility] Globulin 3.0 2.5 - 4.1 g/dL 04/09/2025 8:52 PM [facility] Anion Gap 16(H) 4 - 12 04/09/2025 8:52 PM [facility] A/G Ratio 1.0 0.7 - 1.9 04/09/2025 8:52 PM [facility] Osmolality Calc 278.8 mOsm/kg 8:52 PM [facility] Blood Venipuncture / Unknown 04/09/2025 8:18 PM EDT 04/09/2025 8:24 PM EDT us Wesley Goncalves ROOM SERVER LAB BLOOD ORDERABLES Final Res ult [facility] [address] [place] [address], [facility] [phone] * (ABNORMAL) CBC with automated diff (04/09/2025 8:18 PM EDT) WBC 22.1(H) 4.2 - 9.1 K/ L 04/09/2025 8:26 PM EDT [facility] RBC 3.78(L) 4.63 - 6.08 M/ L 04/09/2025 8:26 PM EDT [facility] Hemoglobin 10.5(L) 13.7 - 17.5 GM/DL 04/09/2025 8:26 PM EDT [facility] Hematocrit 31.8(L) 40.1 - 51.0 % 04/09/2025 8:26 PM EDT [facility] MCV 84 79 - 92 fL 04/09/2025 8:26 PM EDT [facility] MCH 27.8 25.7 - 32.2 pg 04/09/2025 8:26 PM EDT [facility] MCHC 33.0 32.3 - 36.5 GM/DL 04/09/2025 8:26 PM EDT [facility] RDW 14.7(H) 11.6 - 14.4 % 04/09/2025 8:26 PM EDT [facility] Platelets 275 140 - 375 K/CU MM 04/09/2025 8:26 PM EDT [facility] MPV 8.3(L) 9.4 - 12.4 fL 04/09/2025 8:26 PM EDT [facility] % Neutros 89(H) 34 - 68 % 04/09/2025 8:26 PM EDT [facility] % Lymphs 3(L) 22 - 53 % 04/09/2025 8:26 PM EDT [facility] % Monos 8 5 - 12 % 04/09/2025 8:26 PM EDT [facility] % Eos 0(L) 1 - 7 % 04/09/2025 8:26 PM EDT [facility] % Baso 0 0 - 1 % 04/09/2025 8:26 PM EDT [facility] NRBC Absolute <0.01 0 - 0.012 K/ul 04/09/2025 8:26 PM EDT [facility] # Neutros 19.67(H) 1.78 - 5.38 K/ L 04/09/2025 8:26 PM EDT [facility] # Lymphs 0.58(L) 1.32 - 3.57 K/ L 04/09/2025 8:26 PM EDT [facility] # Monos 1.75(H) 0.30 - 0.82 K/ L 04/09/2025 8:26 PM EDT [facility] # Eos <0.03(L) 0.04 - 0.54 K/ L 04/09/2025 8:26 PM EDT [facility] # Baso 0.03 0.01 - 0.08 K/ L 04/09/2025 8:26 PM EDT [facility] Immature Granulocytes-Re lative 0.50(H) 0.01 - 0.43 % 04/09/2025 8:26 PM EDT [facility] # IG 0.11(H) 0.00 - 0.03 K/uL 04/09/2025 8:26 PM EDT [facility] Blood Venipuncture / Unknown 04/09/2025 8:18 PM EDT 04/09/2025 8:24 PM EDT Narrative [facility] - 04/09/2025 8:26 PM EDT When CBC w/ Auto Diff is ordered the lab will add a Manual Differential as a quality check at no additional charge if: Lymphocytes greater than seventy five percent with normal or increased WBC Monocytes greater than Fifteen percent Basophil greater than four percent Bands >10% or several immature myeloids are seen on scan Blast? Flag noted Atypical Lymph flag noted us Wesley Goncalves APRN LAB BLOOD ORDERABLES Final Res ult Performing Organization Address City/[facility]/ZIP Co de Phone Number [facility] [address] [place] [address], [facility] [phone] * (ABNORMAL) CALCIUM Ionized (04/09/2025 8:18 PM EDT) [facility] Calcium Ionized 1.10(L) 1.12 - 1.32 mmol/L 04/09/2025 8:30 PM EDT [facility] Blood Venipuncture / Unknown 04/09/2025 8:18 PM EDT 04/09/2025 8:24 PM EDT us Wesley Goncalves APRN LAB BLOOD ORDERABLES Final Res ult Performing Organization Address [facility] Co de Phone Number [facility] [address] [place] [address], [facility] [phone] * (ABNORMAL) Glucose, Nova Meter (04/09/2025 11:26 AM EDT) [facility] POC-GLUCOSE 161(H) 70 - 110 mg/dL 04/09/2025 11:28 AM EDT [facility] Comment: In the event of poor peripheral blood flow, venous or arterial blood should be used due to the potential of erroneous results. Notified Nurse [employer] Generation Technician [phone] 04/09/2025 11:28 AM EDT [facility] Blood WHOLE BLOOD / Unknown 04/09/2025 11:26 AM EDT 04/09/2025 11:28 AM EDT Narrative [facility] LABORATORY - 04/09/2025 11:28 AM EDT Generation Technician ID is - [id number] us Rebekah Lockhart MD POINT OF CARE TEST ORDERABLE S Final Result Performing Organization Address [facility]/ZIP Co de Phone Number [facility] [address] [place] [address], [facility] [phone] * Tissue Exam (04/09/2025 9:50 AM EDT) [facility] AP RESULT See Note: PATHOLOGY AND CYTOLOGY LABORATORY Comment: PATHOLOGY REPORT DIAGNOSIS: A. COLON, ; PREVIOUS ANASTOMOSIS WITH FISTULA, RESECTION: Benign segment of colon with fistula tract Negative for specific microorganisms Negative for dysplasia or malignancy Benign viable surgical resection margins B. HARDWARE/SURGICAL DEVICE, ; ABDOMINAL WALL MESH, GROSS ONLY: GROSS DIAGNOSIS: Specimen B consistent with surgically explanted mesh and accompanying fibromembranous and adipose tissue. . Final Reviewed, Diagnosed and Electronically Signed By: SHAVONNE RUSSELL MD CLINICAL HISTORY: Diverticulitis of large intestine with perforation and abscess without bleeding MICROSCOPIC DESCRIPTION: Tissue blocks are prepared and slides examined microscopically on all specimens. See diagnosis for details. GROSS DESCRIPTION: A. Received in formalin labeled colon, previous anastomosis with fistula is a 6 cm long by 2.5 cm in average diameter intact, unopened portion of large bowel with a moderate amount of attached yellow, lobular pericolonic fat. The serosa is sandy-pink with dense adhesions and a single non designated suture with a corresponding fistula. The mucosa is pink and glistening with normal folds. No mucosal lesions or polyps are identified. Additionally received in the container on an EEA anvil or 2 end designated anastomotic donuts. Finished Cigar Maker sections are submitted as follows: A1: Proximal mucosal margin en face A2: Distal mucosal margin en face A3-A4: Fistula A5: anastomotic donuts B. Received in formalin labeled abdominal wall mesh are 3 portions of sandy mesh material, fibromembranous soft tissue and adipose tissue aggregating 5.5 x 5 x 0.4 cm. No distinct masses or areas of necrosis are identified. No sections are submitted. HDM See other report ([id number]) Tissue COLON STRUCTURE / Unknown 04/09/2025 9:50 AM EDT Tissue specimen (specimen) MESH / Unknown 04/09/2025 10:49 AM EDT us Rebekah Lockhart MD PATHOLOGY/CYTOLOGY ORDERABLE S Final Result PATHOLOGY AND CYTOLOGY LABORATORY [address] * Type and Screen (04/09/2025 7:00 AM EDT) ABO/Rh B Positive 04/09/2025 6:07 AM EDT [facility] ([place]) Antibody Screen Negative 04/09/2025 6:07 AM EDT [facility] ([place]) HISTCHK HIST CHECK PERFORMED 04/09/2025 6:07 AM EDT [facility] ([place]) Blood Venipuncture / Unknown 04/09/2025 7:00 AM EDT 04/09/2025 7:11 AM EDT us Todd Okeefe MD [facility] TEST ORDERA BLES Final Result Performing Organization Address [facility]/ZIP Co de Phone Number [facility] ([place]) [address] [place] [address] * POC-Potassium (04/09/2025 6:49 AM EDT) POC Potassium 4.3 3.5 - 4.9 mmol/L 04/09/2025 6:57 AM EDT [facility] Blood 04/09/2025 6:49 AM EDT 04/09/2025 6:57 AM EDT Narrative [facility] - 04/09/2025 6:57 AM EDT Generation Technician ID is - [id number] us Rebekah Lockhart MD POINT OF CARE TEST ORDERABLE S Final Result [facility] [address] [phone] * Glucose, iSTAT Meter (04/09/2025 6:49 AM EDT) POC-GLUCOSE 101 70 - 105 mg/dL 04/09/2025 6:57 AM EDT [facility] Blood 04/09/2025 6:49 AM EDT 04/09/2025 6:57 AM EDT Narrative [facility] - 04/09/2025 6:57 AM EDT Generation Technician ID is - [id number] us Rebekah Lockhart MD POINT OF CARE TEST ORDERABLE S Final Result [facility] [address] [phone] * EKG-SCANNED (04/09/2025) Narrative 04/09/2025 Ordered by an unspecified provider. us Default Scanning Provider SCAN ORDERS Final Result documented in this encounter Visit Diagnoses Diagnosis Diverticulitis of colon with perforation- Primary Diverticulitis of colon (without mention of hemorrhage) Vesicointestinal fistula Intestinovesical fistula documented in this encounter Admitting Diagnoses Diagnosis Diverticulitis of colon with perforation Diverticulitis of colon (without mention of hemorrhage) documented in this encounter Administered Medications Inactive Administered Medications - up to 3 most recent administrations Medication Order MAR Action Action Date Dose Rate Site acetaminophen (TYLENOL) tablet 1,000 mg 1,000 mg Once, oral, On Wed04/09/25 at 0630, For 1 dose, Recommended maximum dose of acetaminophen is 4000 mg from all sources in 24 hours, Pre-op Given 04/09/2025 6:36 AM EDT 1,000 mg albumin human 5 % IV 250 mL 250 mL Once, intravenous, at 125 mL/hr, On Wed04/10/25 at 0300, For 1 dose, Albumin is restricted for approved indications only and limited to 24 hr duration, with exception of the last indication restricted to 48 hrs. If albumin therapy is needed beyond 24 hrs a new order should be placed by the provider. Choose an indication. Other Indication, Please enter appropriate Other Indication: HYPOTENSION New Bag 04/10/2025 2:32 AM EDT 250 mLs 125 mL/hr albumin human 5 % IV 500 mL 500 mL Once, intravenous, On Wed04/09/25 at 1530, For 1 dose, Albumin is restricted for approved indications only and limited to 24 hr duration, with exception of the last indication restricted to 48 hrs. If albumin therapy is needed beyond 24 hrs a new order should be placed by the provider. Choose an indication. Other Indication, Please enter appropriate Other Indication: Hypotension after surgery New Bag 04/09/2025 2:50 PM EDT 500 mLs 500 mL/hr albumin human 5 % IV 500 mL 500 mL Once, intravenous, at 125 mL/hr, On Wed04/11/25 at 0730, For 1 dose, Albumin is restricted for approved indications only and limited to 24 hr duration, with exception of the last indication restricted to 48 hrs. If albumin therapy is needed beyond 24 hrs a new order should be placed by the provider. Choose an indication. Volume resuscitation after 4 L of Crystalloid within the past 24 Hours New Bag 04/11/2025 7:59 AM EDT 500 mLs 125 mL/hr alvimopan (ENTEREG) capsule 12 mg 12 mg Once, oral, On Wed04/09/25 at 0630, For 1 dose, Avoid use for more than 7 days or 15 doses. Inpatient use only. First dose given pre-op. Discontinue alvimopan once bowel function has returned, or after a maximum of 15 doses. , Pre-op, Does the patient meet all the eligibility criteria above, and I understand the risks associated with the use of this medication (ENTEREG REMS Program): Yes, FDA Indications (select one): Partial large bowel resection, Has the patient received therapeutic opioid doses for equal to or greater than 7 consecutive days immediately prior to taking alvimopan? No, Does the patient have Endstage Renal Disease? No, Does the patient have severe Hepatic Impairment? No, Is the patient undergoing surgery for correction of complete bowel obstruction? No Given 04/09/2025 6:36 AM EDT 12 mg alvimopan (ENTEREG) capsule 12 mg 12 mg 2 times daily, oral, First dose on Wed04/09/25 at 2100, For 14 doses, Stop after 14 doses OR if patient passes flatus. Give only if received preop. , Phase II/On Unit, Does the patient meet all the eligibility criteria above, and I understand the risks associated with the use of this medication (ENTEREG REMS Program): Yes, FDA Indications (select one): Partial large bowel resection, Has the patient received therapeutic opioid doses for equal to or greater than 7 consecutive days immediately prior to taking alvimopan? No, Does the patient have Endstage Renal Disease? No, Does the patient have severe Hepatic Impairment? No, Is the patient undergoing surgery for correction of complete bowel obstruction? No Given 04/12/2025 8:07 AM EDT 12 mg Given 04/11/2025 8:49 PM EDT 12 mg Given 04/11/2025 8:18 AM EDT 12 mg atorvastatin (LIPITOR) tablet 40 mg 40 mg Every Night, oral, First dose on Wed04/09/25 at 2100 Given 04/15/2025 8:12 PM EDT 40 mg Given 04/14/2025 8:01 PM EDT 40 mg Given 04/13/2025 8:42 PM EDT 40 mg ceFAZolin (ANCEF) 2 g in sodium chloride 0.9 % (NS) MBP 50 mL IVPB 2 g Every 8 hours scheduled, intravenous, Administer over 30 Minutes, First dose on Wed04/09/25 at 1300, For 14 days, PACU, Please choose an indication: Surgical Prophylaxis IVPB Started 04/09/2025 12:50 PM EDT 2 g 100 mL/hr cefTRIAXone (ROCEPHIN) 2 g in sodium chloride 0.9 % (NS) 50 mL SHANELLE IVPB 2 g Every 24 hours, intravenous, at 100 mL/hr, First dose on Wed04/10/25 at 0900, Please choose an indication: Intra-abdominal Infection IVPB Started 04/16/2025 8:37 AM EDT 2 g 100 mL/hr IVPB Started 04/15/2025 9:50 AM EDT 2 g 100 mL/hr IVPB Started 04/14/2025 8:23 AM EDT 2 g 100 mL/hr DAPTOmycin (CUBICIN) 500 mg in sodium chloride 0.9 % (NS) MBP 50 mL IVPB 500 mg Daily, intravenous, at 100 mL/hr, First dose on Wed04/16/25 at 1100, USE IS RESTRICTED TO ID TEAM * PHARMACIST ADJUST DOSE ACCORDING TO POLICY *, Please choose an indication: Skin/Soft Tissue Infection dextrose 50% (D50W) injection 25 g 25 g Every 15 min PRN, intravenous, low blood glucose (specify value in prn comments), less than 41 mg/dL or 41-69 mg/dL and unable to take PO, Starting on Wed04/09/25 at 1619, Repeat blood glucose every 15 minutes until blood glucose greater than 70 mg/dL. Call Provider if not resolved after 2 treatments Repeat BS in 1 hour, retime for 1 hour after blood sugar greater than 70 mg/dL If less than 41: Repeat Finger stick within 5 minutes with same machine Send serum glucose level: Do not wait on lab to treat diatrizoate josé antonio-diatrizoat sod (GASTROGRAFIN) 66-10 % solution 30 mL 30 mL Once, oral, On Wed04/11/25 at 0730, For 1 dose, Intra-op Given 04/11/2025 7:59 AM EDT 30 mLs diatrizoate josé antonio-diatrizoat sod (GASTROGRAFIN) 66-10 % solution 30 mL 30 mL Once, oral, On Wed04/15/25 at 1400, For 1 dose, Intra-op Given 04/15/2025 2:11 PM EDT 30 mLs diazePAM (VALIUM) injection 2.5 mg 2.5 mg Every 6 hours PRN, intravenous, Abdominal Spasms, Starting on Wed04/09/25 at 1207, Phase II/On Unit Given 04/10/2025 3:18 PM EDT 2.5 mg Given 04/10/2025 8:14 AM EDT 2.5 mg Given 04/09/2025 6:04 PM EDT 2.5 mg enoxaparin (LOVENOX) syringe 40 mg 40 mg Every 24 hours, subcutaneous, First dose on Wed04/10/25 at 1700, Do not administer within 12 hours of epidural or lumbar puncture. Look-Alike/Sound-Alike Alert Given 04/15/2025 4:35 PM EDT 40 mg Abdom inal Tissue Given 04/14/2025 5:51 PM EDT 40 mg Ab dominal Tissue Given 04/13/2025 5:00 PM EDT 40 mg Ab dominal Tissue famotidine (PEPCID) tablet 20 mg 20 mg Once, oral, On Wed04/09/25 at 0630, For 1 dose, Pharmacist to renally dose if CrCl is less than 50 mL/min or on CRRT., Pre-op Given 04/09/2025 6:36 AM EDT 20 m g fentaNYL PF (SUBLIMAZE) 50 mcg/mL injection Starting on Wed04/09/25 at 0632, For 1 dose, Created by enet michaelide fentaNYL PF (SUBLIMAZE) injection 100 mcg 100 mcg Once, intravenous, On Wed04/09/25 at 0800, For 1 dose, Pre-op Given 04/09/2025 7:20 AM EDT 50 mcg fentaNYL PF (SUBLIMAZE) injection 25 mcg 25 mcg Every 5 min PRN, intravenous, severe pain (7-10), First Line for pain moderate or greater, Starting on Wed04/09/25 at 1104, Maximum cumulative dose 100 mcg. If maximum dose is reached, proceed to 2nd Line agent., PACU Given 04/09/2025 4:18 PM EDT 25 mcg Given 04/09/2025 12:11 PM EDT 25 mcg Given 04/09/2025 11:49 AM EDT 25 mcg fentaNYL PF (SUBLIMAZE) injection IMG once as needed, intravenous, Starting on Wed04/11/25 at 1601, Intra-op Given 04/11/2025 4:07 PM EDT 25 mcg Given 04/11/2025 4:05 PM EDT 25 mcg Given 04/11/2025 4:01 PM EDT 25 mcg glucagon injection 1 mg 1 mg Every 15 min PRN, intraMUSCULAR, low blood glucose (specify value in prn comments), For Patients without IV access and blood glucose 41-69 mg/dL AND unable to take PO OR Less than 41 mg/dL, Starting on Wed04/09/25 at 1619, Caution: glucagon . Roll patient on their side when administering to prevent aspiration. Call Provider if not resolved after 2 treatments Repeat BS in 1 hour, retime for 1 hour after blood sugar greater than 70 mg/dL glucose chew tab 16 g 16 g Every 15 min PRN, oral, low blood glucose (specify value in prn comments), 41-69 mg/dL, Starting on Wed04/09/25 at 1619, For Patients who can take oral AND blood glucose 41-69 mg/dL Give 4 Tabs every 15 minutes. Recheck blood glucose every 15 minutes and repeat 15 grams of carbohydrates until blood glucose is above 70 mg/dL. Give Meal or Snack Call Provider if not resolved after 3 treatments Repeat BS in 1 hour, retime for 1 hour after blood sugar greater than 70 mg/dL heparin injection 5,000 Units 5,000 Units Once, subcutaneous, On Wed04/09/25 at 0630, For 1 dose, Pre-op Given 04/09/2025 6:36 AM EDT 5,000 Units Left Arm hydrogen peroxide external solution 3% topical, 2 times daily, First dose on Sandy 04/12/25 at 0900, Irrigate pigtail catheter with 10mL solution of half hydrogen peroxide + half normal saline Given 04/15/2025 8:22 PM EDT Given 04/15/2025 9:51 AM EDT Given 04/14/2025 8:27 PM EDT HYDROmorphone (DILAUDID) injection 0.2 mg 0.2 mg Every 4 hours PRN, intravenous, moderate pain (4-6), Starting on Wed04/11/25 at 1957 Given 04/12/2025 4:00 AM EDT 0.2 mg Given 04/11/2025 8:49 PM EDT 0.2 mg HYDROmorphone (DILAUDID) injection 0.4 mg 0.4 mg Every 4 hours PRN, intravenous, For breakthrough pain, Starting on 04/14/25 at 1608 Given 04/15/2025 8:12 PM EDT 0.4 mg HYDROmorphone (DILAUDID) injection 0.5 mg 0.5 mg Every 10 min PRN, intravenous, severe pain (7-10), 2nd Line agent after max dose Fentanyl given if ordered., Starting on Wed04/09/25 at 1104, For 4 doses, Maximum cumulative dose 2 mg, PACU, PACU Given 04/09/2025 2:10 PM EDT 0.5 mg Given 04/09/2025 12:32 PM EDT 0.5 mg Given 04/09/2025 12:05 PM EDT 0.5 mg iopamidoL (ISOVUE-370) 370 mg iodine /mL (76 %) injection 75 mL 75 mL IMG once as needed, intravenous, contrast, Starting on Wed04/11/25 at 0933, For 1 dose, Intra-op Given 04/11/2025 9:34 AM EDT 75 mLs iopamidoL (ISOVUE-370) 370 mg iodine /mL (76 %) injection 75 mL 75 mL IMG once as needed, intravenous, contrast, Starting on Wed04/15/25 at 1338, For 1 dose, Intra-op Given 04/15/2025 3:26 PM EDT 75 mLs lactated Ringer's infusion 100 mL/hr Continuous, intravenous, Starting on Wed04/09/25 at 0630, Pre-op Restarted 04/09/2025 7:46 AM EDT New Bag 04/09/2025 7:01 AM EDT 100 mL/hr 100 mL/hr lactated Ringer's infusion 75 mL/hr Continuous, intravenous, Starting on Wed04/09/25 at 1700, Phase II/On Unit New Bag 04/15/2025 8:12 PM EDT 75 mL/hr 75 mL/hr Rate/Dose Verify 04/15/2025 6:00 PM EDT 75 mL/hr 75 mL/h r Rate/Dose Verify 04/15/2025 5:00 PM EDT 75 mL/hr 75 mL/h r lidocaine (XYLOCAINE) injection 1% IMG once as needed, Starting on Wed04/11/25 at 1607, Intra-op Given 04/11/2025 4:07 PM EDT 5 mLs meloxicam (MOBIC) tablet 15 mg 15 mg Once, oral, On Wed04/09/25 at 0630, For 1 dose, Pre-op Given 04/09/2025 6:36 AM EDT 15 mg metoprolol (LOPRESSOR) injection 5 mg 5 mg Once, intravenous, On Wed04/11/25 at 0000, For 1 dose, Hold if SBP < 100 mmHg, DBP < 50 mmHg, or HR < 50 bpm, or patient is on pressor or inotrope. *Telemetry required*, unless patient is in Labor & Delivery. Given 04/10/2025 11:41 PM EDT 5 mg metroNIDAZOLE (FLAGYL) IVPB 500 mg in sodium chloride 0.9 % 100 mL (premix) 500 mg Every 6 hours scheduled, intravenous, at 100 mL/hr, First dose on Wed04/09/25 at 1800, For 14 days, Phase II/On Unit, Please choose an indication: Surgical Prophylaxis IVPB Started 04/16/2025 6:14 AM EDT 500 mg 100 mL/hr IVPB Started 04/15/2025 11:46 PM EDT 500 mg 100 mL/hr IVPB Started 04/15/2025 5:26 PM EDT 500 mg 100 mL/hr midazolam (PF) (VERSED) injection IMG once as needed, intravenous, Starting on Wed04/11/25 at 1601, Intra-op Given 04/11/2025 4:05 PM EDT 0.5 mg Given 04/11/2025 4:01 PM EDT 0.5 mg midazolam (VERSED) 1 mg/mL injection Starting on Wed04/09/25 at 0631, For 1 dose, Created by cabinet override Look-alike/Sound-alike medication. Contains Benzyl Alcohol midazolam (VERSED) injection 2 mg 2 mg Once, intravenous, On Wed04/09/25 at 0800, For 1 dose, Look-alike/Sound-alike medication. Contains Benzyl Alcohol, Pre-op Given 04/09/2025 7:20 AM EDT 1 mg morphine injection 4 mg 4 mg Every 4 hours PRN, intravenous, severe pain (7-10), Starting on Wed04/09/25 at 1618, Phase II/On Unit Given 04/16/2025 4:24 AM EDT 4 mg Given 04/15/2025 4:35 PM EDT 4 mg Given 04/14/2025 8:23 PM EDT 4 mg nicotine (NICODERM CQ) 21 mg/24 hr patch 1 patch 1 patch Daily as needed, transdermal, Administer over 24 Hours, other, tobacco use, Starting on Wed04/09/25 at 1620 ondansetron (ZOFRAN) injection 4 mg 4 mg Every 8 hours PRN, intravenous, nausea, vomiting, Starting on Wed04/09/25 at 1618, Give IV if patient is unable to take orally. 1st line If inadequate response within 60 minutes, proceed to next-line agent for same PRN reason or contact provider if no further options ordered. For IV push, give over 2 - 5 minutes., Phase II/On Unit ondansetron (ZOFRAN-ODT) disintegrating tablet 4 mg 4 mg Every 8 hours PRN, oral, nausea, vomiting, Starting on Wed04/09/25 at 1618, 1st line. If inadequate response within 60 minutes, proceed to next-line agent for same PRN reason or contact provider if no further options ordered., Phase II/On Unit oxyCODONE (ROXICODONE) immediate release tablet 5 mg 5 mg Every 4 hours PRN, oral, moderate pain (4-6), moderate pain (4-6) use second line, Starting on 04/09/25 at 1618, Look-alike/Sound-alike medication, Phase II/On Unit Given 04/14/2025 10:41 AM EDT 5 mg Given 04/14/2025 4:43 AM EDT 5 mg Given 04/13/2025 3:43 PM EDT 5 mg oxyCODONE (ROXICODONE) immediate release tablet 5 mg 5 mg Every 4 hours PRN, oral, moderate pain (4-6), Starting on 04/14/25 at 1609, Look-alike/Sound-alike medication, Phase II/On Unit Given 04/15/2025 10:46 PM EDT 5 mg Given 04/15/2025 5:28 PM EDT 5 mg Given 04/15/2025 3:31 AM EDT 5 mg pantoprazole (PROTONIX) injection 40 mg 40 mg Daily, intravenous, First dose on Wed04/09/25 at 1700, * DILUTE IN 10 ML NS AND GIVE IV SLOWLY OVER 3 MINUTES *, Phase II/On Unit Given 04/15/2025 9:51 AM EDT 40 mg Given 04/14/2025 8:23 AM EDT 40 mg Given 04/13/2025 9:02 AM EDT 40 mg potassium chloride (KLOR-CON) ER tablet 40 mEq 40 mEq Once, oral, On Wed04/15/25 at 0700, For 1 dose, DO NOT CRUSH THIS DOSAGE FORM. Given 04/15/2025 6:39 AM EDT 4 0 mEq pregabalin (LYRICA) capsule 75 mg 75 mg Once, oral, On Wed04/09/25 at 0630, For 1 dose, Pre-op Given 04/09/2025 6:36 AM EDT 75 mg QUEtiapine (SEROquel) tablet 200 mg 200 mg Every Night, oral, First dose on Wed04/09/25 at 2100 Given 04/15/2025 8:12 PM EDT 200 mg Given 04/14/2025 8:01 PM EDT 200 mg Given 04/13/2025 8:42 PM EDT 200 mg sodium chloride 0.9% (NS) bolus 1,000 mL Once, intravenous, Administer over 120 Minutes, On Wed04/11/25 at 0830, For 1 dose New Bag 04/11/2025 9:19 AM EDT 1,000 mLs 500 mL/hr sodium chloride 0.9% (NS) bolus 1,000 mL Once, intravenous, Administer over 120 Minutes, On Wed04/12/25 at 0700, For 1 dose New Bag 04/12/2025 6:34 AM EDT 1,000 mLs 500 mL/hr sodium chloride 0.9% (NS) bolus 1,000 mL As needed, intravenous, Administer over 60 Minutes, for sustained low BP with map of less than 60, Starting on Wed04/12/25 at 1825, For 1 dose tiZANidine (ZANAFLEX) tablet 4 mg 4 mg 3 times daily, oral, First dose on Wed04/09/25 at 1700 Given 04/15/2025 8:12 PM EDT 4 mg Given 04/15/2025 2:41 PM EDT 4 mg Given 04/15/2025 9:51 AM EDT 4 mg documented in this encounter Active and Recently Administered Medications Times are shown in EDT. Scheduled Medication Order 04/14/2025 04/15/2025 04/16/2025 atorvastatin (LIPITOR) tablet 40 mg (CANCELED) 40 mg Every Night, oral, First dose on Wed04/09/25 at 2100 2000 (Given - Provider: Ramos Alves, DUSTIN) 2011 (Given - Provider: Ronny Long RN) cefTRIAXone (ROCEPHIN) 2 g in sodium chloride 0.9 % (NS) 50 mL SHANELLE IVPB 2 g Every 24 hours, intravenous, at 100 mL/hr, First dose on Wed04/10/25 at 0900, Please choose an indication: Intra-abdominal Infection 0823 (IVPB Started - Provider: Jodie Alcaraz RN)1016 (IVPB Stopped - Provider: Jodie Alcaraz RN) 0950 (IVPB Started - Provider: Suri Alcaraz RN)1030 (IVPB Stopped - Provider: Suri Alcaraz RN) 0837 (IVPB Started - Provider: Ruby Ponce, DUSTIN)0907 (IVPB Stopped - Provider: Ruby Ponce, DUSTIN) DAPTOmycin (CUBICIN) 500 mg in sodium chloride 0.9 % (NS) MBP 50 mL IVPB 500 mg Daily, intravenous, at 100 mL/hr, First dose on Wed04/16/25 at 1100, USE IS RESTRICTED TO ID TEAM * PHARMACIST ADJUST DOSE ACCORDING TO POLICY *, Please choose an indication: Skin/Soft Tissue Infection diatrizoate josé antonio-diatrizoat sod (GASTROGRAFIN) 66-10 % solution 30 mL (COMPLETED) 30 mL Once, oral, On Wed04/15/25 at 1400, For 1 dose, Intra-op 1411 (Given - Provider: Suri Alcaraz RN) enoxaparin (LOVENOX) syringe 40 mg 40 mg Every 24 hours, subcutaneous, First dose on Wed04/10/25 at 1700, Do not administer within 12 hours of epidural or lumbar puncture. Look-Alike/Sound-Ali ke Alert 1751 (Given - Provider: Jodie Alcaraz RN) 1635 (Given - Provider: Suri Alcaraz RN) hydrogen peroxide external solution 3% topical, 2 times daily, First dose on Wed04/12/25 at 0900, Irrigate pigtail catheter with 10mL solution of half hydrogen peroxide + half normal saline 1041 (Given - Provider: Jodie Alcaraz RN)2026 (Given - Provider: Ramos Alves RN) 0951 (Given - Provider: Suri Alcaraz RN)2021 (Given - Provider: Ronny Long, DUSTIN) 09 (Not Given - Provider: Ruby Ponce, DUSTIN - Reason: Patient/family refused) metoprolol succinate (TOPROL-XL) 24 hr tablet 50 mg 50 mg Every Night, oral, First dose on Wed04/09/25 at 2100, Hold for systolic BP < 90 mmHg or for HR < 50 BPM Do Not Crush or Chew (Tablet may be split), Phase II/On Unit, On hold since Wed04/09/2025 at 1619 until manually unheld 2100 (Automatically Held) 2100 (Not Given - Provider: Ronny LongDUSTIN - Reason: Per MD Order) 1127 (Unheld by provider - Provider: Automatic Discharge Provider) metroNIDAZOLE (FLAGYL) IVPB 500 mg in sodium chloride 0.9 % 100 mL (premix) 500 mg Every 6 hours scheduled, intravenous, at 100 mL/hr, First dose on Wed04/09/25 at 1800, For 14 days, Phase II/On Unit, Please choose an indication: Surgical Prophylaxis 0106 (IVPB Stopped - Provider: Ramos Alves RN)0600 (IVPB Started - Provider: Ramos Alves RN)0822 (IVPB Stopped - Provider: Jodie Alcaraz RN)1330 (IVPB Started - Provider: Jodie Alcaraz RN)1433 (IVPB Stopped - Provider: Myranda Bowers RN)1820 (IVPB Started - Provider: Jodie Alcaraz RN)2027 (IVPB Stopped - Provider: Ramos Alves RN) 0016 (IVPB Started - Provider: Ramos Alves RN)0202 (IVPB Stopped - Provider: Ramos Alves RN)0603 (IVPB Started - Provider: Ramos Alves RN)0700 (IVPB Stopped - Provider: Suri Alcaraz RN)1300 (IVPB Started - Provider: Suri Alcaraz, DUSTIN)1400 (IVPB Stopped - Provider: Suri Alcaraz RN)1726 (IVPB Started - Provider: Suri Alcaraz, DUSTIN)1933 (IVPB Stopped - Provider: Ronny Long RN)2346 (IVPB Started - Provider: Ronny Long RN) 0039 (IVPB Stopped - Provider: Ronny Long RN)0614 (IVPB Started - Provider: Ronny Long RN)0714 (IVPB Stopped - Provider: Ruby Ponce, DUSTIN) pantoprazole (PROTONIX) injection 40 mg 40 mg Daily, intravenous, First dose on Wed04/09/25 at 1700, * DILUTE IN 10 ML NS AND GIVE IV SLOWLY OVER 3 MINUTES *, Phase II/On Unit 0823 (Given - Provider: Jodie Alcaraz RN) 0951 (Given - Provider: Suri Alcaraz, DUSTIN) 0922 (Not Given - Provider: Ruby Ponce, DUSTIN - Reason: Patient/family refused) potassium chloride (KLOR-CON) ER tablet 40 mEq (COMPLETED) 40 mEq Once, oral, On Wed04/15/25 at 0700, For 1 dose, DO NOT CRUSH THIS DOSAGE FORM. 0639 (Given - Provider: Ramos Alves RN) QUEtiapine (SEROquel) tablet 200 mg 200 mg Every Night, oral, First dose on Wed04/09/25 at 2100 2000 (Given - Provider: Ramos Alves, RN) 2011 (Given - Provider: Ronny Long, RN) tiZANidine (ZANAFLEX) tablet 4 mg 4 mg 3 times daily, oral, First dose on Wed04/09/25 at 1700 0823 (Given - Provider: Jodie Alcaraz, DUSTIN)1441 (Given - Provider: Jodie Alcaraz, DUSTIN)2000 (Given - Provider: Ramos Alves RN) 0951 (Given - Provider: Suri Alcaraz RN)1441 (Given - Provider: Suri Alcaraz, DUSTIN)2011 (Given - Provider: Ronny Long, RN) 0923 (Not Given - Provider: Ruby Ponce RN - Reason: Patient/family refused) Continuous Medication Order 04/14/2025 04/15/2025 04/16/2025 lactated Ringer's infusion 75 mL/hr Continuous, intravenous, Starting on Wed04/09/25 at 1700, Phase II/On Unit 0659 (Rate/Dose Verify - Provider: Suri Alcarza RN)0700 (Rate/Dose Verify - Provider: Suri Alcaraz RN)0800 (Rate/Dose Verify - Provider: Suri Alcaraz RN)0900 (Rate/Dose Verify - Provider: Suri Alcaraz RN)1000 (Rate/Dose Verify - Provider: Suri Alcaraz RN)1100 (Rate/Dose Verify - Provider: Suri Alcaraz RN)1200 (Rate/Dose Verify - Provider: Suri Alcaraz RN)1300 (Rate/Dose Verify - Provider: Suri Alcaraz RN)1400 (Rate/Dose Verify - Provider: Suri Alcaraz RN)1500 (Rate/Dose Verify - Provider: Suri Alcaraz RN)1600 (Rate/Dose Verify - Provider: Suri Alcaraz RN)1700 (Rate/Dose Verify - Provider: Suri Alcaraz RN)1800 (Rate/Dose Verify - Provider: Suri Alcaraz RN)2011 (New Bag - Provider: Ronny Long RN) PRN Medication Order 04/14/2025 04/15/2025 04/16/2025 dextrose 50% (D50W) injection 25 g 25 g Every 15 min PRN, intravenous, low blood glucose (specify value in prn comments), less than 41 mg/dL or 41-69 mg/dL and unable to take PO, Starting on Wed04/09/25 at 1619, Repeat blood glucose every 15 minutes until blood glucose greater than 70 mg/dL. Call Provider if not resolved after 2 treatments Repeat BS in 1 hour, retime for 1 hour after blood sugar greater than 70 mg/dL If less than 41: Repeat Finger stick within 5 minutes with same machine Send serum glucose level: Do not wait on lab to treat diazePAM (VALIUM) injection 2.5 mg 2.5 mg Every 6 hours PRN, intravenous, Abdominal Spasms, Starting on Wed04/09/25 at 1207, Phase II/On Unit glucagon injection 1 mg 1 mg Every 15 min PRN, intraMUSCULAR, low blood glucose (specify value in prn comments), For Patients without IV access and blood glucose 41-69 mg/dL AND unable to take PO OR Less than 41 mg/dL, Starting on Wed04/09/25 at 1619, Caution: glucagon . Roll patient on their side when administering to prevent aspiration. Call Provider if not resolved after 2 treatments Repeat BS in 1 hour, retime for 1 hour after blood sugar greater than 70 mg/dL glucose chew tab 16 g 16 g Every 15 min PRN, oral, low blood glucose (specify value in prn comments), 41-69 mg/dL, Starting on Wed04/09/25 at 1619, For Patients who can take oral AND blood glucose 41-69 mg/dL Give 4 Tabs every 15 minutes. Recheck blood glucose every 15 minutes and repeat 15 grams of carbohydrates until blood glucose is above 70 mg/dL. Give Meal or Snack Call Provider if not resolved after 3 treatments Repeat BS in 1 hour, retime for 1 hour after blood sugar greater than 70 mg/dL HYDROmorphone (DILAUDID) injection 0.4 mg 0.4 mg Every 4 hours PRN, intravenous, For breakthrough pain, Starting on 04/14/25 at 1608 2011 (Given - Provider: Ronny Long, RN) iopamidoL (ISOVUE-370) 370 mg iodine /mL (76 %) injection 75 mL (COMPLETED) 75 mL IMG once as needed, intravenous, contrast, Starting on Wed04/15/25 at 1338, For 1 dose, Intra-op 1526 (Given - Provider: Triny Andrade) morphine injection 4 mg 4 mg Every 4 hours PRN, intravenous, severe pain (7-10), Starting on Wed04/09/25 at 1618, Phase II/On Unit 0823 (Given - Provider: Jodie Alcaraz, RN)1441 (Given - Provider: Jodie Alcaraz, RN)202 (Given - Provider: Ramos Alves, RN) 1635 (Given - Provider: Suri Alcaraz, DUSTIN) 0424 (Given - Provider: Ronny Long, DUSTIN) nicotine (NICODERM CQ) 21 mg/24 hr patch 1 patch 1 patch Daily as needed, transdermal, Administer over 24 Hours, other, tobacco use, Starting on Wed04/09/25 at 1620 ondansetron (ZOFRAN) injection 4 mg(Linked Group 1) 4 mg Every 8 hours PRN, intravenous, nausea, vomiting, Starting on Wed04/09/25 at 1618, Give IV if patient is unable to take orally. 1st line If inadequate response within 60 minutes, proceed to next-line agent for same PRN reason or contact provider if no further options ordered. For IV push, give over 2 - 5 minutes., Phase II/On Unit ondansetron (ZOFRAN-ODT) disintegrating tablet 4 mg(Linked Group 1) 4 mg Every 8 hours PRN, oral, nausea, vomiting, Starting on Wed04/09/25 at 1618, 1st line. If inadequate response within 60 minutes, proceed to next-line agent for same PRN reason or contact provider if no further options ordered., Phase II/On Unit oxyCODONE (ROXICODONE) immediate release tablet 5 mg (CANCELED) 5 mg Every 4 hours PRN, oral, moderate pain (4-6), moderate pain (4-6) use second line, Starting on Wed04/09/25 at 1618, Look-alike/Sound-alike medication, Phase II/On Unit 0443 (Given - Provider: Ramos Alves, RN)1041 (Given - Provider: Jodie Alcaraz, DUSTIN) oxyCODONE (ROXICODONE) immediate release tablet 5 mg 5 mg Every 4 hours PRN, oral, moderate pain (4-6), Starting on 04/14/25 at 1609, Look-alike/Sound-alike medication, Phase II/On Unit 1948 (Given - Provider: Ramos Alves, RN) 0331 (Given - Provider: Ramos Alves, RN)1728 (Given - Provider: Suri Alcaraz, DUSTIN)2246 (Given - Provider: Ronny Long RN) sodium chloride 0.9% (NS) bolus 1,000 mL As needed, intravenous, Administer over 60 Minutes, for sustained low BP with map of less than 60, Starting on Sandy 04/12/25 at 1825, For 1 dose Linked Groups Order Group 1: ondansetron (ZOFRAN-ODT) disintegrating tablet 4 mgJump to med 4 mg Every 8 hours PRN, oral, nausea, vomiting, Starting on 04/09/25 at 1618, 1st line. If inadequate response within 60 minutes, proceed to next-line agent for same PRN reason or contact provider if no further options ordered., Phase II/On Unit Or ondansetron (ZOFRAN) injection 4 mgJump to med 4 mg Every 8 hours PRN, intravenous, nausea, vomiting, Starting on 04/09/25 at 1618, Give IV if patient is unable to take orally. 1st line If inadequate response within 60 minutes, proceed to next-line agent for same PRN reason or contact provider if no further options ordered. For IV push, give over 2 - 5 minutes., Phase II/On Unit documented in this encounter
--- OUTSIDE RECORDS SUMMARY | 2025-04-09 07:30 | XMS_ITS | Encounter Summary ---
Author Organization [employer] ([place], [place], [place], [place]) Address [address] [place] [address] Care Team Providers Care Community Product Specialist Name Role Phone Unavailable Primary Care Provider Unavailabl e Reason for Visit * Auth/Cert (Routine) Specialty Diagnoses / Procedures Referred By Contalbertina t Referred To Contact Diagnoses Vesicointestinal fistula SEE PRIMARY DX Procedures CA COLECTOMY PRTL W/COLOPROCTOSTOMY CA CYSTOURETHROSCOPY W/URETERAL CATHETERIZATION RESECTION, RECTUM AND SIGMOID COLON, LOW ANTERIOR, LAPAROSCOPIC, WITH CONVERSION TO OPEN PROCEDURE IF INDICATED CYSTOSCOPY, WITH RETROGRADE PYELOGRAM AND URETEROSCOPY Operating Room [address] [place] [address] Phone: tel: fax: Operating Room [address] [place] [address] Phone: tel: fax: Referral ID Status Reason Start Date Expiration Date Visits Re quested Visits Authorized [id number] 1 1 Encounter Details Date Type Department Care Team (Late st Contact Info) Description 04/09/2025 7:30 AM EDT - 04/09/2025 11:27 AM EDT Surgery Operating Room [address] [place] [address] Rebekah Lockhart MD [address] [place] [address] (OPEN LOW ANTERIOR RESECTION WITH TAKEDOWN OF COLOVESICAL FISTULA DIVERTING LOOP ILEOSTOMY VENTRAL HERNIA REPAIR AND CYSTOSCOPY AND STENTS) EXPLANTS OF MESH, REDO LAR,EX LAP LYSIS OF ADHESIONS Social History Tobacco Use Types Packs/Day Years [...] your living situation today? I have a [facility] place to live 04/09/2025 Think about the [...] Do you speak a language other than Greenlandic at ho ok? No 04/09/2025 Do you want help with [...] Sign Reading Time Taken Comments Blood Pressure 133/87 04/09/2025 11:25 AM EDT Pulse 83 04/09/2025 11:25 AM EDT Temperature 36.8 C (98.2 F) 04/09/2025 11:25 AM EDT Respiratory Rate 22 04/09/2025 11:25 AM EDT Oxygen Saturation 100% 04/09/2025 11:25 AM EDT Inhaled Oxygen Concentration - - Weight 80.5 kg (177 lb 6.1 oz) 04/09/2025 6:07 A M EDT Height - - Body Mass Index 26.18 04/09/2025 5:44 PM [...] from the original note were not included. [facility] INFECTIOUS DISEASE PROGRESS NOTE Levar Palomino Felisacindydavid 1960 [id number] Date of consult: 04/10/2025 Admit date: 04/09/2025 Requesting Provider: @[email or web address]@ [facility] physician: Murtaza Amato MD Reason for Consultation: [...] hernia status post ventral hernia repair with [place]-Pablo 2013, and colovesical fis sandra. Possible need for pacemaker but held off because of fistula. The patient was admitted for an elective repair to [facility] 04/09/2025. He underwent surgery with Dr. [...] STENT INSERTION; Surgeon: Rebekah Lockhart MD; Location: [facility]; Service: General Surgery; Laterality: Bilateral; HAND SURGERY Bilateral HERNIA REPAIR LAPAROSCOPY,LOW ANTERIOR RESECTION N/A 04/09/2025 Procedure: (OPEN LOW ANTERIOR RESECTION WITH TAKEDOWN OF COLOVESICAL FISTULA DIVERTING LOOP ILEOSTOMY VENTRAL HERNIA REPAIR AND CYSTOSCOPY AND STENTS) EXPLANTS OF MESH, REDO LAR,EX LAP LYSIS OF ADHESIONS; Surgeon: Rebekah Lockhart MD; Location: [facility]; Service: General Surgery; Laterality: N/A; Pediatric History [...] Every Night metroNIDAZOLE 500 mg intravenous Q6H [facility] IVPB Stopped at 04/16/25 0714 pantoprazole 40 mg intravenous Daily 40 mg at 04/15/25 0951 QUEtiapine 200 mg oral Every Night 200 mg at 04/15/252011 tiZANidine 4 mg oral TID 4 mg at 04/15/252011 Continuous Infusions: Current Facility-Administered Medications Medication Dose Route Frequency Provider Last Rate Last Admin atorvastatin (LIPITOR) tablet 40 mg 40 mg oral Every Night Ismabonita Long, DO 40 mg at 04/15/252011 cefTRIAXone (ROCEPHIN) 2 g in sodium chloride 0.9 % (NS) 50 mL SHANELLE IVPB 2 g intravenous Q24H MD Pietro IVPB Stopped at 04/16/25 09 dextrose 50% (D50W) injection 25 g 25 g intravenous Q15 Min PRN Jah Long DO diazePAM (VALIUM) injection 2.5 mg 2.5 [...] AWA Rebekah Lockhart MD IVPB Stopped at 04/16/25 [...] Procedure Component Value Units Date/Time Anaerobic Culture [[id number]] (Abnormal) Collected: 08/06/25 1626 Order Status: Completed Specimen: Body Fluid from Retroperitoneum Updated: 04/16/25 0719 Result Parabacteroides distasonis Body Fluid Culture + Gram Stain [[id number]] (Abnormal) (Susceptibility) Collected: 04/11/251625 Order Status: Completed Specimen: Body Fluid from Retroperitoneum Updated: 04/16/25 0653 Result Light Growth Enterococcus faecium Comment: Sent to reference lab for sensitivity testing. Light Growth Klebsiella pneumoniae Light Growth Clostridium tertium Comment: No susceptibility performed Gram Stain Result Moderate gram positive cocci in pairs Many WBCs [facility] [[id number]] Collected: 04/11/251625 Order Status: Sent Specimen: Body Fluid from Retroperitoneum Updated: 04/16/25 0652 AFB Culture And Stain [[id number]] Collected: 04/11/251625 Order Status: Completed Specimen: Body Fluid from Retroperitoneum Updated: 04/12/25 1419 AFB Smear No acid fast bacilli seen MRSA Screen [[id number]] (Normal) Collected: 04/11/25 164 Order Status: Completed Specimen: Nasal from Nares Updated: 04/11/25 1922 MRSA by PCR [facility] MRSA Not Detected by PCR Radiology: Radiology Results (last 3 days) Procedure Component Value Units Date/Time CT ABDOMEN/PELVIS WITH IV CONTRAST Standard Protocol [[id number]] Collected: 04/15/25 163 Order Status: Completed Updated: [...] Paz MD CT pelvis without IV contrast [[id number]] Collected: 04/15/25 163 Order Status: Completed Updated: [...] of inflammation, with partial resection of previous [place] mesh. Fluid in the left inguinal canal [...] repair but no rebekah abscess. Concerns for [place] mesh in place which was partially resected. Future concerns could include potential infection of [place] mesh which is a difficult clinical problem [...] Location: RLQ Ostomy Status Budded;Moist;Functioning Stoma Color Nellie;Red Peristomal Skin Intact Interventions Change pouch;Cleanse skin;Cleanse stoma;Other (comment) (harish removed) [facility] RN present for continuing education regarding ileostomy and harish removal from stoma. Upon arrival patient resting on Katherine support surface, agreeable to teaching/assessment. Prior pouching system removed, site cleansed with warm water and patted dry. [facility] RN removed plastic harish as ordered by Dr. Lockhart without difficulty. Left template for patient to use for next pouch change instructing patient to measure stoma over next 4 weeks as stoma will shrink in size, patient verbalized understanding. Applied Adapt 2 ostomy ring around stoma, then applied a Darlin blue convex pouching system. Reviewed printed packet [...] supplies to take home. Current Ostomy Supplies: Darlin Blue convex, two piece system (#08575, #[id number]) Adapt Ostomy Ring, 2 #5005 Stoma Powder #3346 [place] #[id number] * Rebekah Lockhart MD - 04/16/2025 7:28 [...] POC-GLUCOSE 164 (H) 70 - 110 mg/dL Gang Vibrator Operator [id number] Glucose, Nova Meter Status: Abnormal Collection Time: 04/15/25 4:42 PM Result Value Ref Range POC-GLUCOSE 121 (H) 70 - 110 mg/dL Gang Vibrator Operator [id number] Glucose, Nova Meter Status: Abnormal Collection Time: 04/15/25 10:47 PM Result Value Ref Range POC-GLUCOSE 133 (H) 70 - 110 mg/dL Gang Vibrator Operator [id number] Basic Metabolic Panel Status: Abnormal Collection Time: [...] POC-GLUCOSE 139 (H) 70 - 110 mg/dL Gang Vibrator Operator [id number] Glucose, Nova Meter Status: Abnormal Collection Time: 04/15/25 12:47 PM Result Value Ref Range POC-GLUCOSE 164 (H) 70 - 110 mg/dL Gang Vibrator Operator [id number] Glucose, Nova Meter Status: Abnormal Collection Time: 04/15/25 4:42 PM Result Value Ref Range POC-GLUCOSE 121 (H) 70 - 110 mg/dL Gang Vibrator Operator [id number] CT ABDOMEN/PELVIS WITH IV CONTRAST Standard Protocol, [...] POC-GLUCOSE 132 (H) 70 - 110 mg/dL Gang Vibrator Operator [id number] Glucose, Nova Meter Status: None Collection Time: 04/14/25 5:53 PM Result Value Ref Range POC-GLUCOSE 106 70 - 110 mg/dL Gang Vibrator Operator [id number] Basic Metabolic Panel Status: Abnormal Collection Time: [...] POC-GLUCOSE 139 (H) 70 - 110 mg/dL Gang Vibrator Operator [id number] CT DRAINAGE PERITONEAL/RETROPERITONEAL W GUIDANCE Narrative: CT GUIDED DRAIN PLACEMENT HISTORY: Left groin abscess. . ATTENDING RADIOLOGIST: Dr. Gaviria. PHYSICIAN HAZARDOUS MATERIALS ANALYST: Jean Pierre Hughes PA-C. PROCEDURE: After informed consent was obtained and a time-out was performed, the patient was prepped and draped in the usual sterile fashion over the left groin. Utilizing local anesthesia and sterile technique with a catheter access needle, access to the fluid collection was obtained under direct CT guidance. An Amplatz wire was placed. Serial dilatation was performed. A 10 Spanish pigtail catheter was placed looped in the [...] STENT INSERTION; Surgeon: Rebekah Lockhart MD; Location: [facility]; Service: General Surgery; Laterality: Bilateral; HAND SURGERY Bilateral HERNIA REPAIR LAPAROSCOPY,LOW ANTERIOR RESECTION N/A 04/09/2025 Procedure: (OPEN LOW ANTERIOR RESECTION WITH TAKEDOWN OF COLOVESICAL FISTULA DIVERTING LOOP ILEOSTOMY VENTRAL HERNIA REPAIR AND CYSTOSCOPY AND STENTS) EXPLANTS OF MESH, REDO LAR,EX LAP LYSIS OF ADHESIONS; Surgeon: Rebekah Lockhart MD; Location: [facility]; Service: General Surgery; Laterality: N/A; Past Surgical History: Procedure Laterality Date COLON SURGERY patient stated he had colon surgery (colostomy with reversal) CORONARY ANGIOPLASTY WITH STENT PLACEMENT CORONARY ARTERY BYPASS GRAFT CYSTOSCOPY,INSERTION URETERAL STENTS Bilateral 04/09/2025 Procedure: CYSTOSCOPY, WITH URETERAL STENT INSERTION; Surgeon: Rebekah Lockhart MD; Location: [facility]; Service: General Surgery; Laterality: Bilateral; HAND SURGERY Bilateral HERNIA REPAIR LAPAROSCOPY,LOW ANTERIOR RESECTION N/A 04/09/2025 Procedure: (OPEN LOW ANTERIOR RESECTION WITH TAKEDOWN OF COLOVESICAL FISTULA DIVERTING LOOP ILEOSTOMY VENTRAL HERNIA REPAIR AND CYSTOSCOPY AND STENTS) EXPLANTS OF MESH, REDO LAR,EX LAP LYSIS OF ADHESIONS; Surgeon: Rebekah Lockhart MD; Location: [facility]; Service: General Surgery; Laterality: N/A; Allergies: No [...] POC-GLUCOSE 132 (H) 70 - 110 mg/dL Gang Vibrator Operator [id number] Glucose, Nova Meter Status: None Collection Time: 04/14/25 5:53 PM Result Value Ref Range POC-GLUCOSE 106 70 - 110 mg/dL Gang Vibrator Operator [id number] Basic Metabolic Panel Status: Abnormal Collection Time: [...] POC-GLUCOSE 139 (H) 70 - 110 mg/dL Gang Vibrator Operator [id number] No results found for: PT , INR [...] Date/Time Body Fluid Culture + Gram Stain [[id number]] (Abnormal) Collected: 04/11/251625 Order Status: Completed Specimen: Body Fluid from Retroperitoneum Updated: 04/15/25 1030 Result Light Growth Enterococcus faecium Light Growth Klebsiella pneumoniae Light Growth Clostridium tertium Gram Stain Result Moderate gram positive cocci in pairs Many WBCs Anaerobic Culture [[id number]] (Abnormal) Collected: 04/11/251625 Order Status: Completed Specimen: Body Fluid from Retroperitoneum Updated: 04/15/25 1009 Result Parabacteroides distasonis AFB Culture And Stain [[id number]] Collected: 04/11/251625 Order Status: Completed Specimen: Body Fluid from Retroperitoneum Updated: 04/12/25 1419 AFB Smear No acid fast bacilli seen MRSA Screen [[id number]] (Normal) Collected: 04/11/25 1649 Order Status: Completed Specimen: Nasal from Nares Updated: 04/11/25 1922 MRSA by PCR [facility] MRSA Not Detected by PCR Radiology Results [...] personally evaluated the patient and performed a nkon-na-bqvj diagnostic evaluation on this patient; I have Obtained history, performed physical examination, reviewed laboratory studies. I have independently interpreted chest images. I have actively directed the medical care, formulated diagnosis, and the plan of care. Patient requires a high complexity of decision making for assessment. 31 minutes critical care time was spent. Voice time signal wirer technology ([employer]) is used for dictation of this note and sound-alike words might be erroneously placed despite reviewing the note for accuracy. Errors in dictation may reflect use of voice recognition software and not all errors in time signal wirer may have been detected prior to signing. [...] By: Name and Date of Assisted by: aircraft avionics technicianAdrian schulz Precautions Weight-Bearing Status: No Restrictions Precautions: [...] Not assessed, patient ambulatory. Outcome Measures [facility] Basic Mobility Inpatient Short Form How much [...] equipment discharge needs at this time. Goals Xydzgr-kq-iup: By the target date, patient will perform pdwgmh-av-gnv with modified independence, utilizing bed railing, to improve independence with bed mobility and improve overall comfort and well-being. (Goal met 04/15) Fzi-mr-azvvh: By the target date, patient will perform [...] STENT INSERTION; Surgeon: Rebekah Lockhart MD; Location: [facility]; Service: General Surgery; Laterality: Bilateral; HAND SURGERY Bilateral HERNIA REPAIR LAPAROSCOPY,LOW ANTERIOR RESECTION N/A 04/09/2025 Procedure: (OPEN LOW ANTERIOR RESECTION WITH TAKEDOWN OF COLOVESICAL FISTULA DIVERTING LOOP ILEOSTOMY VENTRAL HERNIA REPAIR AND CYSTOSCOPY AND STENTS) EXPLANTS OF MESH, REDO LAR,EX LAP LYSIS OF ADHESIONS; Surgeon: Rebekah Lockhart MD; Location: [facility]; Service: General Surgery; Laterality: N/A; Past Surgical History: Procedure Laterality Date COLON SURGERY patient stated he had colon surgery (colostomy with reversal) CORONARY ANGIOPLASTY WITH STENT PLACEMENT CORONARY ARTERY BYPASS GRAFT CYSTOSCOPY,INSERTION URETERAL STENTS Bilateral 04/09/2025 Procedure: CYSTOSCOPY, WITH URETERAL STENT INSERTION; Surgeon: Rebekah Lockhart MD; Location: [facility]; Service: General Surgery; Laterality: Bilateral; HAND SURGERY Bilateral HERNIA REPAIR LAPAROSCOPY,LOW ANTERIOR RESECTION N/A 04/09/2025 Procedure: (OPEN LOW ANTERIOR RESECTION WITH TAKEDOWN OF COLOVESICAL FISTULA DIVERTING LOOP ILEOSTOMY VENTRAL HERNIA REPAIR AND CYSTOSCOPY AND STENTS) EXPLANTS OF MESH, REDO LAR,EX LAP LYSIS OF ADHESIONS; Surgeon: Rebekah Lockhart MD; Location: [facility]; Service: General Surgery; Laterality: N/A; Allergies: No [...] POC-GLUCOSE 118 (H) 70 - 110 mg/dL Gang Vibrator Operator [id number] Glucose, Nova Meter Status: Abnormal Collection Time: 04/14/25 12:33 PM Result Value Ref Range POC-GLUCOSE 132 (H) 70 - 110 mg/dL Gang Vibrator Operator [id number] No results found for: PT , INR [...] Date/Time Body Fluid Culture + Gram Stain [[id number]] (Abnormal) Collected: 04/11/251625 Order Status: Completed Specimen: Body Fluid from Retroperitoneum Updated: 04/14/25 1115 Result Light Growth Enterococcus faecium Gram Stain Result Moderate gram positive cocci in pairs Many WBCs Anaerobic Culture [[id number]] Collected: 04/11/251625 Order Status: Completed Specimen: Body Fluid from Retroperitoneum Updated: 04/13/25 0745 Result Culture in progress AFB Culture And Stain [[id number]] Collected: 04/11/251625 Order Status: Completed Specimen: Body Fluid from Retroperitoneum Updated: 04/12/25 1419 AFB Smear No acid fast bacilli seen MRSA Screen [[id number]] (Normal) Collected: 04/11/25 1649 Order Status: Completed Specimen: Nasal from Nares Updated: 04/11/251921 MRSA by PCR [facility] MRSA Not Detected by PCR Radiology Results [...] personally evaluated the patient and performed a plps-im-fkkr diagnostic evaluation on this patient; I have Obtained history, performed physical examination, reviewed laboratory studies. I have independently interpreted chest images. I have actively directed the medical care, formulated diagnosis, and the plan of care. Patient requires a high complexity of decision making for assessment. 33 minutes critical care time was spent. Voice time signal wirer technology ([employer]) is used for dictation of this note and sound-alike words might be erroneously placed despite reviewing the note for accuracy. Errors in dictation may reflect use of voice recognition software and not all errors in time signal wirer may have been detected prior to signing. * Rebekah Lockhart MD - 04/14/2025 10:40 AM EDT Subjective Patient is doing fair today. He feels better. He denies any nausea or vomiting. He did tolerate hisfull liquid diet. He has had roughly 1 [...] less urine output than expected. His 19 Spanish Kenrick drain remains with scant output. 10 [...] POC-GLUCOSE 175 (H) 70 - 110 mg/dL Gang Vibrator Operator [id number] Basic Metabolic Panel Status: Abnormal Collection Time: [...] POC-GLUCOSE 118 (H) 70 - 110 mg/dL Gang Vibrator Operator [id number] CT DRAINAGE PERITONEAL/RETROPERITONEAL W GUIDANCE Narrative: CT GUIDED DRAIN PLACEMENT HISTORY: Left groin abscess. . ATTENDING RADIOLOGIST: Dr. Gaviria. PHYSICIAN HAZARDOUS MATERIALS ANALYST: Jean Pierre Hughes PA-C. PROCEDURE: After informed consent was obtained and a time-out was performed, the patient was prepped and draped in the usual sterile fashion over the left groin. Utilizing local anesthesia and sterile technique with a catheter access needle, access to the fluid collection was obtained under direct CT guidance. An Amplatz wire was placed. Serial dilatation was performed. A 10 Spanish pigtail catheter was placed looped in the [...] POC-GLUCOSE 175 (H) 70 - 110 mg/dL Gang Vibrator Operator [id number] Basic Metabolic Panel Status: Abnormal Collection Time: [...] POC-GLUCOSE 118 (H) 70 - 110 mg/dL Gang Vibrator Operator [id number] CT DRAINAGE PERITONEAL/RETROPERITONEAL W GUIDANCE Narrative: CT GUIDED DRAIN PLACEMENT HISTORY: Left groin abscess. . ATTENDING RADIOLOGIST: Dr. Gaviria. PHYSICIAN HAZARDOUS MATERIALS ANALYST: Jean Pierre Hughes PA-C. PROCEDURE: After informed consent was obtained and a time-out was performed, the patient was prepped and draped in the usual sterile fashion over the left groin. Utilizing local anesthesia and sterile technique with a catheter access needle, access to the fluid collection was obtained under direct CT guidance. An Amplatz wire was placed. Serial dilatation was performed. A 10 Spanish pigtail catheter was placed looped in the [...] By: Name and Date of Assisted by: aircraft avionics technicianShaniqua Precautions Weight-Bearing Status: No Restrictions Precautions: Fall [...] equipment discharge needs at this time. Goals Xavvot-nk-udp: By the target date, patient will perform cyzkpu-fh-esd with modified independence, utilizing bed railing, to improve independence with bed mobility and improve overall comfort and well-being. Wsn-ys-rixlh: By the target date, patient will perform [...] Electronically signed by Felicitas Riley, PT - 04/14/25 - 1:47 PM EDT [...] this could be urine. With conference with steam cleaning machine operator decision made to I&O patient with 14fr [...] decision made to pageon call Colorectal surgery environmental solutions engineer. Awaiting return call. Patient had been having [...] from the original note were not included. [facility] INFECTIOUS DISEASE PROGRESS NOTE Levar Rand 1960 [id number] Date of consult: 04/10/2025 Admit date: 04/09/2025 [...] hernia status post ventral hernia repair with [place]-Pablo 2013, and colovesical fis sandra. Possible need for pacemaker but held off because of fistula. The patient was admitted for an elective repair to [facility] 04/09/2025. He underwent surgery with Dr. [...] STENT INSERTION; Surgeon: Rebekah Lockhart MD; Location: [facility]; Service: General Surgery; Laterality: Bilateral; HAND SURGERY Bilateral HERNIA REPAIR LAPAROSCOPY,LOW ANTERIOR RESECTION N/A 04/09/2025 Procedure: (OPEN LOW ANTERIOR RESECTION WITH TAKEDOWN OF COLOVESICAL FISTULA DIVERTING LOOP ILEOSTOMY VENTRAL HERNIA REPAIR AND CYSTOSCOPY AND STENTS) EXPLANTS OF MESH, REDO LAR,EX LAP LYSIS OF ADHESIONS; Surgeon: Rebekah Lockhart MD; Location: [facility]; Service: General Surgery; Laterality: N/A; Pediatric History [...] 2 g intravenous Q24H IVPB Stopped at 04/13/2532 enoxaparin 40 mg subcutaneous Q24H 40 mg at 04/12/25 163 hydrogen peroxide topical BID Given at 04/13/25 09 [Held by provider] metoprolol succinate 50 mg oral Every Night metroNIDAZOLE 500 mg intravenous Q6H AWA IVPB Stopped at 04/13/25 1215 pantoprazole 40 [...] Night Ismaeel Mercedes, DO 200 mg at 04/12/252044 sodium chloride [...] Date/Time Body Fluid Culture + Gram Stain [[id number]] Collected: 04/11/25 1626 Order Status: Completed Specimen: Body Fluid from Retroperitoneum Updated: 04/13/25 1201 Result Culture in progress Gram Stain Result Moderate gram positive cocci in pairs Many WBCs Anaerobic Culture [[id number]] Collected: 04/11/25 1626 Order Status: Completed Specimen: Body Fluid from Retroperitoneum Updated: 04/13/25 0745 Result Culture in progress AFB Culture And Stain [[id number]] Collected: 04/11/25 1626 Order Status: Completed Specimen: Body Fluid from Retroperitoneum Updated: 04/12/25 1419 AFB Smear No acid fast bacilli seen MRSA Screen [[id number]] (Normal) Collected: 04/11/25 1649 Order Status: Completed Specimen: Nasal from Nares Updated: 04/11/25 1922 MRSA by PCR [facility] MRSA Not Detected by PCR Radiology: Radiology Results (last 3 days) Procedure Component Value Units Date/Time CT DRAINAGE PERITONEAL/RETROPERITONEAL W GUIDANCE [[id number]] Collected: 04/11/25 1653 Order Status: Completed Updated: 04/11/25 1701 Narrative: CT GUIDED DRAIN PLACEMENT HISTORY: Left groin abscess. . ATTENDING RADIOLOGIST: Dr. Gaviria. PHYSICIAN HAZARDOUS MATERIALS ANALYST: Jean Pierre Saul, PA-C. PROCEDURE: After informed consent was obtained and a time-out was performed, the patient was prepped and draped in the usual sterile fashion over the left groin. Utilizing local anesthesia and sterile technique with a catheter access needle, access to the fluid collection was obtained under direct CT guidance. An Amplatz wire was placed. Serial dilatation was performed. A 10 Spanish pigtail catheter was placed looped in the [...] Pierre Hughes PA-C XR chest AP portable [[id number]] Collected: 04/11/25 1224 Order Status: Completed Updated: [...] CT ABDOMEN/PELVIS WITH IV CONTRAST Standard Protocol [[id number]] Collected: 04/11/25 1000 Order Status: Completed Updated: [...] of inflammation, with partial resection of previous [place] mesh. Fluid in the left inguinal canal [...] repair but no rebekah abscess. Concerns for [place] mesh in place which was partially resected. Future concerns could include potential infection of [place] mesh which is a difficult clinical problem [...] discussed with patient. 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 [facility] know how to take care ostomy already. Long history of GIdisorders and surgery. PLOF independent. Has had home health in the remote past and does not remember what company. States is not specific in which one to refer to. Son will transport home. States ambulated without walker today and does not think he needs one for home use. Has not ever done IV antib iotics to self before but did to family member. Lives in [place] and will refer to there that is [...] STENT INSERTION; Surgeon: Rebekah Lockhart MD; Location: [facility]; Service: General Surgery; Laterality: Bilateral; HAND SURGERY Bilateral HERNIA REPAIR LAPAROSCOPY,LOW ANTERIOR RESECTION N/A 04/09/2025 Procedure: (OPEN LOW ANTERIOR RESECTION WITH TAKEDOWN OF COLOVESICAL FISTULA DIVERTING LOOP ILEOSTOMY VENTRAL HERNIA REPAIR AND CYSTOSCOPY AND STENTS) EXPLANTS OF MESH, REDO LAR,EX LAP LYSIS OF ADHESIONS; Surgeon: Rebekah Lockhart MD; Location: [facility]; Service: General Surgery; Laterality: N/A; Past Surgical History: Procedure Laterality Date COLON SURGERY patient stated he had colon surgery (colostomy with reversal) CORONARY ANGIOPLASTY WITH STENT PLACEMENT CORONARY ARTERY BYPASS GRAFT CYSTOSCOPY,INSERTION URETERAL STENTS Bilateral 04/09/2025 Procedure: CYSTOSCOPY, WITH URETERAL STENT INSERTION; Surgeon: Rebekah Lockhart MD; Location: [facility]; Service: General Surgery; Laterality: Bilateral; HAND SURGERY Bilateral HERNIA REPAIR LAPAROSCOPY,LOW ANTERIOR RESECTION N/A 04/09/2025 Procedure: (OPEN LOW ANTERIOR RESECTION WITH TAKEDOWN OF COLOVESICAL FISTULA DIVERTING LOOP ILEOSTOMY VENTRAL HERNIA REPAIR AND CYSTOSCOPY AND STENTS) EXPLANTS OF MESH, REDO LAR,EX LAP LYSIS OF ADHESIONS; Surgeon: Rebekah Lockhart MD; Location: [facility]; Service: General Surgery; Laterality: N/A; Allergies: No [...] POC-GLUCOSE 138 (H) 70 - 110 mg/dL Gang Vibrator Operator [id number] Glucose, Nova Meter Status: Abnormal Collection Time: 04/12/25 9:48 PM Result Value Ref Range POC-GLUCOSE 115 (H) 70 - 110 mg/dL Gang Vibrator Operator [id number] CBC - Hemogram (SJ-BKR) Status: Abnormal Collection [...] POC-GLUCOSE 175 (H) 70 - 110 mg/dL Gang Vibrator Operator [id number] No results found for: PT , INR [...] Date/Time Body Fluid Culture + Gram Stain [[id number]] Collected: 04/11/251625 Order Status: Completed Specimen: Body Fluid from Retroperitoneum Updated: 04/13/25 1201 Result Culture in progress Gram Stain Result Moderate gram positive cocci in pairs Many WBCs Anaerobic Culture [[id number]] Collected: 04/11/251625 Order Status: Completed Specimen: Body Fluid from Retroperitoneum Updated: 04/13/25 0745 Result Culture in progress AFB Culture And Stain [[id number]] Collected: 04/11/25 162 Order Status: Completed Specimen: Body Fluid from Retroperitoneum Updated: 04/12/25 1419 AFB Smear No acid fast bacilli seen MRSA Screen [[id number]] (Normal) Collected: 04/11/25 1649 Order Status: Completed Specimen: Nasal from Nares Updated: 04/11/25 1922 MRSA by PCR [facility] MRSA Not Detected by PCR Radiology Results [...] multidisciplinary team including nurse practitioner, nurse, RT, fisher spear, pharmacist, and case management during multidisciplinary round. I Dr.Al Carter, have personally evaluated the patient and performed a fhpu-zl-hkdu diagnostic evaluation on this patient; I have Obtained history, performed physical examination, reviewed laboratory studies. I have independently interpreted chest images. I have actively directed the medical care, formulated diagnosis, and the plan of care. Patient requires a high complexity of decision making for assessment. 33 minutes critical care time was spent. Voice time signal wirer technology ([employer]) is used for dictation of this note and sound-alike words might be erroneously placed despite reviewing the note for accuracy. Errors in dictation may reflect use of voice recognition software and not all errors in time signal wirer may have been detected prior to signing. [...] STENT INSERTION; Surgeon: Rebekah Lockhart MD; Location: [facility]; Service: General Surgery; Laterality: Bilateral; HAND SURGERY Bilateral HERNIA REPAIR LAPAROSCOPY,LOW ANTERIOR RESECTION N/A 04/09/2025 Procedure: (OPEN LOW ANTERIOR RESECTION WITH TAKEDOWN OF COLOVESICAL FISTULA DIVERTING LOOP ILEOSTOMY VENTRAL HERNIA REPAIR AND CYSTOSCOPY AND STENTS) EXPLANTS OF MESH, REDO LAR,EX LAP LYSIS OF ADHESIONS; Surgeon: Rebekah Lockhart MD; Location: [facility]; Service: General Surgery; Laterality: N/A; Vitals and [...] g 25 g intravenous Q15 Min PRN Ismaeedavid LoveMercedes, DO diazePAM (VALIUM) injection 2.5 mg 2.5 [...] AWA Rebekah Lockhart MD 100 mL/hr at 04/13/25 [...] Q4H PRN Rebekah Lockhart MD 5 mg at04/12/25 164 pantoprazole (PROTONIX) injection 40 mg 40 mg intravenous Daily Rebekah Lockhart MD 40 mg at 04/13/25 09 QUEtiapine (SEROquel) tablet 200 mg 200 mg oral Every Night Ismaeel Mercedes, DO 200 mg at 04/12/25 204 sodium chloride 0.9% (NS) bolus 1,000 mL intravenous PRN Rebekah Lockhart MD tiZANidine (ZANAFLEX) tablet 4 mg 4 mg oral TID Ismaeel Mercedes, DO 4 mg at 04/13/25 0902 Drips: LR @ 75ml/hr Recent Labs 04/11/25 [...] Weight: 80.5 kg (177 lb 6.1 oz) (8/4) Wt hx: Wt Readings from Last 10 [...] and Recommendations: Collaboration with other providers, General, [facility], and Commercial beverage Nutrition Monitoring and Goals: [...] 100-180mg/dL Nutrition Risk Level: High Risk Sara Moeller MS, RD, LD * JESUSITA Gilbert - [...] STENT INSERTION; Surgeon: Rebekah Lockhart MD; Location: [facility]; Service: General Surgery; Laterality: Bilateral; HAND SURGERY Bilateral HERNIA REPAIR LAPAROSCOPY,LOW ANTERIOR RESECTION N/A 04/09/2025 Procedure: (OPEN LOW ANTERIOR RESECTION WITH TAKEDOWN OF COLOVESICAL FISTULA DIVERTING LOOP ILEOSTOMY VENTRAL HERNIA REPAIR AND CYSTOSCOPY AND STENTS) EXPLANTS OF MESH, REDO LAR,EX LAP LYSIS OF ADHESIONS; Surgeon: Rebekah Lockhart MD; Location: [facility]; Service: General Surgery; Laterality: N/A; General Visit [...] B socks as OT has recommended long-handle field radio technician and sock-aide currently. Pt verbalizes agreement to utilize equipment. Pt able to perform sit>stand at walker level with SVN. Pt able to perform functional mobility in room environment and transition completely around nursing station in unit with reported need for standing recovery rest period approximately assisted around nursingstation. Pt instructed on performance of breathing strategies while standing at walker level. Pt able to navigate back to room at bedside recliner with needs met. Pt reviewed exercises for utilization of inspirometer including repetitions hourly. Pt required MOD A for correct utilization of sock-aide and long-handle field radio technician. Assessment Assessment Patient demonstrated improved performance during [...] the patient's discharge summary. Electronically signed by JESUSITA Gilbert - 04/13/2025 - 11:29 AM EDT * [...] POC-GLUCOSE 125 (H) 70 - 110 mg/dL Gang Vibrator Operator [id number] Lactic Acid with reflex (SJ) Status: Normal Collection Time: 04/12/25 3:50 PM Result Value Ref Range Lactic Acid Level (mmol/L) 0.9 0.5 - 2.2 mmol/L Glucose, Nova Meter Status: Abnormal Collection Time: 04/12/25 4:49 PM Result Value Ref Range POC-GLUCOSE 138 (H) 70 - 110 mg/dL Gang Vibrator Operator [id number] Glucose, Nova Meter Status: Abnormal Collection Time: 04/12/25 9:48 PM Result Value Ref Range POC-GLUCOSE 115 (H) 70 - 110 mg/dL Gang Vibrator Operator [id number] CBC - Hemogram (SJ-BKR) Status: Abnormal Collection [...] POC-GLUCOSE 175 (H) 70 - 110 mg/dL Gang Vibrator Operator [id number] CT DRAINAGE PERITONEAL/RETROPERITONEAL W GUIDANCE Narrative: CT GUIDED DRAIN PLACEMENT HISTORY: Left groin abscess. . ATTENDING RADIOLOGIST: Dr. Gaviria. PHYSICIAN HAZARDOUS MATERIALS ANALYST: Jean Pierre Hughes PA-C. PROCEDURE: After informed consent was obtained and a time-out was performed, the patient was prepped and draped in the usual sterile fashion over the left groin. Utilizing local anesthesia and sterile technique with a catheter access needle, access to the fluid collection was obtained under direct CT guidance. An Amplatz wire was placed. Serial dilatation was performed. A 10 Spanish pigtail catheter was placed looped in the [...] will need rehab next week * Felicitas Riley, PT - 04/13/2025 9:45 AM EDT Images from the original note were not included. Inpatient Physical Therapy Treatment Patient Name: Levar Rand Date of : 1960 Date of Treatment: 04/13/25 Start Time 919 Stop Time 944 Session Duration 25 minutes General Visit Type: Treatment Approved by: Nurse Platt and Tiffany Patient Disposition Upon Entry: Patient in bedside chair, Call Light/Pull Cord in reach, All needs met and within reach, Nursing aware/notified, HOB >30 degrees, Side rails up Patient Verified By: Name and Date of Co-treated by: OT, Eric Precautions Weight-Bearing Status: No Restrictions Precautions: Fall [...] equipment discharge needs at this time. Goals Yuvngi-jm-mcn: By the target date, patient will perform dgdjdw-tk-wjh with modified independence, utilizing bed railing, to improve independence with bed mobility and improve overall comfort and well-being. Hjc-kx-aqcov: By the target date, patient will perform [...] - 04/13/2025 8:30 AM EDTSummary: Ostomy Education [facility] RN present for continuing education regarding new ileostomy. Upon arrival patient in bed, eating breakfast and feeling much better. [facility] RN reviewed how to open and close pouch and apply wafer to pouch, patient able to return demonstration. Left extra supplies for patient to practice. No leakageconcerns since changing pouching system yesterday. Reviewed Darlin ileostomy folder. Reviewed wear time and pouch [...] POC-GLUCOSE 133 (H) 70 - 110 mg/dL Gang Vibrator Operator [id number] Glucose, Nova Meter Status: Abnormal Collection Time: 04/12/25 11:53 AM Result Value Ref Range POC-GLUCOSE 125 (H) 70 - 110 mg/dL Gang Vibrator Operator [id number] Lactic Acid with reflex (SJ) Status: Normal Collection Time: 04/12/25 3:50 PM Result Value Ref Range Lactic Acid Level (mmol/L) 0.9 0.5 - 2.2 mmol/L Glucose, Nova Meter Status: Abnormal Collection Time: 04/12/25 4:49 PM Result Value Ref Range POC-GLUCOSE 138 (H) 70 - 110 mg/dL Gang Vibrator Operator [id number] Glucose, Nova Meter Status: Abnormal Collection Time: 04/12/25 9:48 PM Result Value Ref Range POC-GLUCOSE 115 (H) 70 - 110 mg/dL Gang Vibrator Operator [id number] CBC - Hemogram (SJ-BKR) Status: Abnormal Collection [...] abscess. . ATTENDING RADIOLOGIST: Dr. Gaviria. PHYSICIAN HAZARDOUS MATERIALS ANALYST: Jean Pierre Hughes PA-C. PROCEDURE: After informed consent was obtained and a time-out was performed, the patient was prepped and draped in the usual sterile fashion over the left groin. Utilizing local anesthesia and sterile technique with a catheter access needle, access to the fluid collection was obtained under direct CT guidance. An Amplatz wire was placed. Serial dilatation was performed. A 10 Spanish pigtail catheter was placed looped in the [...] surgical drain for now Appreciate ID and athlete marketing agent Ostomy education Ultimately he will have to [...] STENT INSERTION; Surgeon: Rebekah Lockhart MD; Location: [facility]; Service: General Surgery; Laterality: Bilateral; HAND SURGERY Bilateral HERNIA REPAIR LAPAROSCOPY,LOW ANTERIOR RESECTION N/A 04/09/2025 Procedure: (OPEN LOW ANTERIOR RESECTION WITH TAKEDOWN OF COLOVESICAL FISTULA DIVERTING LOOP ILEOSTOMY VENTRAL HERNIA REPAIR AND CYSTOSCOPY AND STENTS) EXPLANTS OF MESH, REDO LAR,EX LAP LYSIS OF ADHESIONS; Surgeon: Rebekah Lockhart MD; Location: [facility]; Service: General Surgery; Laterality: N/A; Past Surgical History: Procedure Laterality Date COLON SURGERY patient stated he had colon surgery (colostomy with reversal) CORONARY ANGIOPLASTY WITH STENT PLACEMENT CORONARY ARTERY BYPASS GRAFT CYSTOSCOPY,INSERTION URETERAL STENTS Bilateral 04/09/2025 Procedure: CYSTOSCOPY, WITH URETERAL STENT INSERTION; Surgeon: Rebekah Lockhart MD; Location: [facility]; Service: General Surgery; Laterality: Bilateral; HAND SURGERY Bilateral HERNIA REPAIR LAPAROSCOPY,LOW ANTERIOR RESECTION N/A 04/09/2025 Procedure: (OPEN LOW ANTERIOR RESECTION WITH TAKEDOWN OF COLOVESICAL FISTULA DIVERTING LOOP ILEOSTOMY VENTRAL HERNIA REPAIR AND CYSTOSCOPY AND STENTS) EXPLANTS OF MESH, REDO LAR,EX LAP LYSIS OF ADHESIONS; Surgeon: Rebekah Lockhart MD; Location: [facility]; Service: General Surgery; Laterality: N/A; Allergies: No [...] Result Value Ref Range MRSA by PCR [facility] MRSA Not Detected by PCR MRSA Not Detected by PCR Glucose, Nova Meter Status: None Collection Time: 04/11/25 6:16 PM Result Value Ref Range POC-GLUCOSE 90 70 - 110 mg/dL Gang Vibrator Operator [id number] Glucose, Nova Meter Status: None Collection Time: 04/11/25 11:08 PM Result Value Ref Range POC-GLUCOSE 99 70 - 110 mg/dL Gang Vibrator Operator [id number] CBC w Manual Diff (SJ-BKR) Status: Abnormal [...] POC-GLUCOSE 133 (H) 70 - 110 mg/dL Gang Vibrator Operator [id number] Glucose, Nova Meter Status: Abnormal Collection Time: 04/12/25 11:53 AM Result Value Ref Range POC-GLUCOSE 125 (H) 70 - 110 mg/dL Gang Vibrator Operator [id number] No results found for: PT , INR [...] Value Units Date/Time AFB Culture And Stain [[id number]] Collected: 04/11/25 1626 Order Status: Completed Specimen: Body Fluid from Retroperitoneum Updated: 04/12/25 1419 AFB Smear No acid fast bacilli seen Anaerobic Culture [[id number]] Collected: 04/11/25 1626 Order Status: Completed Specimen: Body Fluid from Retroperitoneum Updated: 04/12/25 0756 Result Culture in progress Body Fluid Culture + Gram Stain [[id number]] Collected: 04/11/25 1626 Order Status: Completed Specimen: Body Fluid from Retroperitoneum Updated: 04/12/25 0650 Result No growth Gram Stain Result Moderate gram positive cocci in pairs Many WBCs MRSA Screen [[id number]] (Normal) Collected: 04/11/25 1649 Order Status: Completed Specimen: Nasal from Nares Updated: 04/11/25 1922 MRSA by PCR [facility] MRSA Not Detected by PCR Radiology Results (last day) Procedure Component Value Units Date/Time CT DRAINAGE PERITONEAL/RETROPERITONEAL W GUIDANCE [[id number]] Collected: 04/11/25 1653 Order Status: Completed Updated: 04/11/25 170 Narrative: CT GUIDED DRAIN PLACEMENT HISTORY: Left groin abscess. . ATTENDING RADIOLOGIST: Dr. Gaviria. PHYSICIAN HAZARDOUS MATERIALS ANALYST: Jean Pierre Hughes PA-C. PROCEDURE: After informed consent was obtained and a time-out was performed, the patient was prepped and draped in the usual sterile fashion over the left groin. Utilizing local anesthesia and sterile technique with a catheter access needle, access to the fluid collection was obtained under direct CT guidance. An Amplatz wire was placed. Serial dilatation was performed. A 10 Spanish pigtail catheter was placed looped in the [...] Complicated Diverticulitis with Colovesicular Fistula H/O of [place]'s procedure with subsequent reversal and incisional hernia [...] multidisciplinary team including nurse practitioner, nurse, RT, fisher spear, pharmacist, and case management during multidisciplinary round. I Dr.Al Gillisnatalee, have personally evaluated the patient and performed a lyse-vt-czvv diagnostic evaluation on this patient; I have Obtained history, performed physical examination, reviewed laboratory studies. I have independently interpreted chest images. I have actively directed the medical care, formulated diagnosis, and the plan of care. Patient requires a high complexity of decision making for assessment. 31 minutes critical care time was spent. Voice time signal wirer technology ([employer]) is used for dictation of this note and sound-alike words might be erroneously placed despite reviewing the note for accuracy. Errors in dictation may reflect use of voice recognition software and not all errors in time signal wirer may have been detected prior to signing. * Murtaza Amato MD - 04/12/2025 1:29 PM EDT Images from the original note were not included. [facility] INFECTIOUS DISEASE PROGRESS NOTE Levar Rand 1960 [id number] Date of consult: 04/10/2025 Admit date: 04/09/2025 [...] hernia status post ventral hernia repair with [place]-Pablo 2013, and colovesical fis sandra. Possible need for pacemaker but held off because of fistula. The patient was admitted for an elective repair to [facility] 04/09/2025. He underwent surgery with Dr. [...] STENT INSERTION; Surgeon: Rebekah Lockhart MD; Location: [facility]; Service: General Surgery; Laterality: Bilateral; HAND SURGERY Bilateral HERNIA REPAIR LAPAROSCOPY,LOW ANTERIOR RESECTION N/A 04/09/2025 Procedure: (OPEN LOW ANTERIOR RESECTION WITH TAKEDOWN OF COLOVESICAL FISTULA DIVERTING LOOP ILEOSTOMY VENTRAL HERNIA REPAIR AND CYSTOSCOPY AND STENTS) EXPLANTS OF MESH, REDO LAR,EX LAP LYSIS OF ADHESIONS; Surgeon: Rebekah Lockhart MD; Location: [facility]; Service: General Surgery; Laterality: N/A; Pediatric History [...] 2 g intravenous Q24H IVPB Stopped at 04/12/25829 enoxaparin 40 mg subcutaneous Q24H 40 mg at 04/11/25 1647 hydrogen peroxide topical BID Given at 04/12/25 0824 [Held by provider] metoprolol succinate 50 mg oral Every Night metroNIDAZOLE 500 mg intravenous Q6H AWA 500 mg at 04/12/25 1149 pantoprazole 40 mg intravenous Daily 40 mg at 04/12/25 08 QUEtiapine 200 mg oral Every Night 200 mg at 04/11/252048 tiZANidine 4 mg oral TID 4 mg at 04/12/25 08 Continuous Infusions: Current Facility-Administered Medications Medication Dose [...] intravenous Q24H MD Pietro IVPB Stopped at 04/12/25 0830 dextrose 50% (D50W) injection 25 g 25 [...] mg 0.4 mg intravenous Q4H PRN Kulwinder Doonvan MD lactated Ringer's infusion 75 mL/hr intravenous Continuous Rebekah Lockhart MD 75 mL/hr at 04/12/25 0900 75 mL/hr at 04/12/25 0900 [Held by provider] metoprolol succinate (TOPROL-XL) 24 hr tablet 50 mg 50 mg oral Every Night MD Inocencio metroNIDAZOLE (FLAGYL) IVPB 500 mg in sodium chloride 0.9 % 100 mL (premix) 500 mg intravenous Q6H [facility] Rebekah Lockhart MD 100 mL/hr at 04/12/25 [...] No respiratory distress, no use of accessory muscles.No rales or rhonchi. ABDOMEN: Soft, nontender, nondistended. [...] Procedure Component Value Units Date/Time Anaerobic Culture [[id number]] Collected: 04/11/251625 Order Status: Completed Specimen: Body Fluid from Retroperitoneum Updated: 04/12/25 0756 Result Culture in progress Body Fluid Culture + Gram Stain [[id number]] Collected: 04/11/251625 Order Status: Completed Specimen: Body Fluid from Retroperitoneum Updated: 04/12/25 0650 Result No growth Gram Stain Result Moderate gram positive cocci in pairs Many WBCs MRSA Screen [[id number]] (Normal) Collected: 04/11/25 1649 Order Status: Completed Specimen: Nasal from Nares Updated: 04/11/25 1922 MRSA by PCR [facility] MRSA Not Detected by PCR AFB Culture And Stain [[id number]] Collected: 04/11/251625 Order Status: Sent Specimen: Body Fluid from Retroperitoneum Updated: 04/11/25 1652 Radiology: Radiology Results (last 3 days) Procedure Component Value Units Date/Time CT DRAINAGE PERITONEAL/RETROPERITONEAL W GUIDANCE [[id number]] Collected: 04/11/25 1653 Order Status: Completed Updated: 04/11/25 1701 Narrative: CT GUIDED DRAIN PLACEMENT HISTORY: Left groin abscess. . ATTENDING RADIOLOGIST: Dr. Gaviria. PHYSICIAN HAZARDOUS MATERIALS ANALYST: Jean Pierre Hughes PA-C. PROCEDURE: After informed consent was obtained and a time-out was performed, the patient was prepped and draped in the usual sterile fashion over the left groin. Utilizing local anesthesia and sterile technique with a catheter access needle, access to the fluid collection was obtained under direct CT guidance. An Amplatz wire was placed. Serial dilatation was performed. A 10 Spanish pigtail catheter was placed looped in the [...] reviewed, interpreted, and dictated by Dr. Roro Gaviira. Transcribed by Jean Pierre Hughes PA-C XR chest AP portable [[id number]] Collected: 04/11/25 1224 Order Status: Completed Updated: [...] CT ABDOMEN/PELVIS WITH IV CONTRAST Standard Protocol [[id number]] Collected: 04/11/25 1000 Order Status: Completed Updated: [...] Roro Gaviria MD XR chest AP portable [[id number]] Collected: 04/10/25 0747 Order Status: Completed Updated: [...] of inflammation, with partial resection of previous [place]-P[place] mesh. Fluid in the left inguinal canal [...] but no rebekah abscess. Does also have [place]-Texmesh in place which was partially resected. Future concerns could include potential infection of [place]-P[place] mesh which is a difficult clinical problem [...] First Assessed found. Location: RLQ Ostomy Status Bridge/[place];New;Moist;Functioning Stoma Color Red Peristomal Skin Intact Interventions Change pouch;Cleanse skin;Cleanse stoma WCC RN present for continuing education regarding new [...] ring applied to peristomal skin followed by Darlin blue flat pouching system. Left patient with extra pouch to practice opening and closing. Will provide a follow-up visit for further education. Please contact wound/ostomy team if unable to maintain seal. Ostomy supplies: Darlin blue flat wafer - # [id number] Darlin blue pouch- #[id number] * Lizzy Kramer MD - 04/12/2025 7:28 [...] Range POC-GLUCOSE 99 70 - 110 mg/dL Gang Vibrator Operator [id number] Body Fluid Culture + Gram Stain Status: None (Preliminary result) Collection Time: 04/11/25 4:26 PM Specimen: Retroperitoneum; Body Fluid Result Value Ref Range Result No growth Gram Stain Result Moderate gram positive cocci in pairs Gram Stain Result Many WBCs MRSA Screen Status: Normal Collection Time: 04/11/25 4:49 PM Specimen: Nares; Nasal Result Value Ref Range MRSA by PCR [facility] MRSA Not Detected by PCR MRSA Not Detected by PCR Glucose, Nova Meter Status: None Collection Time: 04/11/25 6:16 PM Result Value Ref Range POC-GLUCOSE 90 70 - 110 mg/dL Gang Vibrator Operator [id number] Glucose, Nova Meter Status: None Collection Time: 04/11/25 11:08 PM Result Value Ref Range POC-GLUCOSE 99 70 - 110 mg/dL Gang Vibrator Operator [id number] CBC w Manual Diff (SJ-BKR) Status: Abnormal [...] abscess. . ATTENDING RADIOLOGIST: Dr. Gaviria. PHYSICIAN HAZARDOUS MATERIALS ANALYST: Jean Pierre Hughes PA-C. PROCEDURE: After informed consent was obtained and a time-out was performed, the patient was prepped and draped in the usual sterile fashion over the left groin. Utilizing local anesthesia and sterile technique with a catheter access needle, access to the fluid collection was obtained under direct CT guidance. An Amplatz wire was placed. Serial dilatation was performed. A 10 Spanish pigtail catheter was placed looped in the [...] Range POC-GLUCOSE 99 70 - 110 mg/dL Gang Vibrator Operator [id number] Body Fluid Culture + Gram Stain Status: None (Preliminary result) Collection Time: 04/11/25 4:26 PM Specimen: Retroperitoneum; Body Fluid Result Value Ref Range Result No growth Gram Stain Result Moderate gram positive cocci in pairs Gram Stain Result Many WBCs MRSA Screen Status: Normal Collection Time: 04/11/25 4:49 PM Specimen: Nares; Nasal Result Value Ref Range MRSA by PCR [facility] MRSA Not Detected by PCR MRSA Not Detected by PCR Glucose, Nova Meter Status: None Collection Time: 04/11/25 6:16 PM Result Value Ref Range POC-GLUCOSE 90 70 - 110 mg/dL Gang Vibrator Operator [id number] Glucose, Nova Meter Status: None Collection Time: 04/11/25 11:08 PM Result Value Ref Range POC-GLUCOSE 99 70 - 110 mg/dL Gang Vibrator Operator [id number] CBC w Manual Diff (SJ-BKR) Status: Abnormal [...] abscess. . ATTENDING RADIOLOGIST: Dr. Gaviria. PHYSICIAN HAZARDOUS MATERIALS ANALYST: Jean Pierre Hughes PA-C. PROCEDURE: After informed consent was obtained and a time-out was performed, the patient was prepped and draped in the usual sterile fashion over the left groin. Utilizing local anesthesia and sterile technique with a catheter access needle, access to the fluid collection was obtained under direct CT guidance. An Amplatz wire was placed. Serial dilatation was performed. A 10 Spanish pigtail catheter was placed looped in the [...] STENT INSERTION; Surgeon: Rebekah Lockhart MD; Location: [facility]; Service: General Surgery; Laterality: Bilateral; HAND SURGERY Bilateral HERNIA REPAIR LAPAROSCOPY,LOW ANTERIOR RESECTION N/A 04/09/2025 Procedure: (OPEN LOW ANTERIOR RESECTION WITH TAKEDOWN OF COLOVESICAL FISTULA DIVERTING LOOP ILEOSTOMY VENTRAL HERNIA REPAIR AND CYSTOSCOPY AND STENTS) EXPLANTS OF MESH, REDO LAR,EX LAP LYSIS OF ADHESIONS; Surgeon: Rebekah Lockhart MD; Location: [facility]; Service: General Surgery; Laterality: N/A; Past Surgical History: Procedure Laterality Date COLON SURGERY patient stated he had colon surgery (colostomy with reversal) CORONARY ANGIOPLASTY WITH STENT PLACEMENT CORONARY ARTERY BYPASS GRAFT CYSTOSCOPY,INSERTION URETERAL STENTS Bilateral 04/09/2025 Procedure: CYSTOSCOPY, WITH URETERAL STENT INSERTION; Surgeon: Rebekah Lockhart MD; Location: [facility]; Service: General Surgery; Laterality: Bilateral; HAND SURGERY Bilateral HERNIA REPAIR LAPAROSCOPY,LOW ANTERIOR RESECTION N/A 04/09/2025 Procedure: (OPEN LOW ANTERIOR RESECTION WITH TAKEDOWN OF COLOVESICAL FISTULA DIVERTING LOOP ILEOSTOMY VENTRAL HERNIA REPAIR AND CYSTOSCOPY AND STENTS) EXPLANTS OF MESH, REDO LAR,EX LAP LYSIS OF ADHESIONS; Surgeon: Rebekah Lockhart MD; Location: [facility] OR; Service: General Surgery; Laterality: N/A; Allergies: No [...] I/O last 3 completed shifts: In: 2804.5 [I.V.:2004.5; IV Piggyback:800] Out: 2610 [Urine:1875; Drains:35; Stool:700] [...] I/O last 3 completed shifts: In: 2804.5 [I.V.:2004.5; IV Piggyback:800] Out: 2610 [Urine:1875; Drains:35; Stool:700] LABS Results for orders placed or performed during the hospital encounter of 04/09/25 (from the past 24 hours) Glucose, Nova Meter Status: Abnormal Collection Time: 04/10/25 6:15 PM Result Value Ref Range POC-GLUCOSE 115 (H) 70 - 110 mg/dL Gang Vibrator Operator [id number] Glucose, Nova Meter Status: Abnormal Collection Time: 04/10/25 11:28 PM Result Value Ref Range POC-GLUCOSE 132 (H) 70 - 110 mg/dL Gang Vibrator Operator [id number] CBC w Manual Diff (SJ-BKR) Status: Abnormal [...] POC-GLUCOSE 119 (H) 70 - 110 mg/dL Gang Vibrator Operator [id number] Glucose, Nova Meter Status: None Collection Time: 04/11/25 12:57 PM Result Value Ref Range POC-GLUCOSE 99 70 - 110 mg/dL Gang Vibrator Operator [id number] No results found for: PT , INR [...] Date/Time Body Fluid Culture + Gram Stain [[id number]] Collected: 04/11/25 162 Order Status: Sent Specimen: Body Fluid from Retroperitoneum Anaerobic Culture [[id number]] Collected: 04/11/25 162 Order Status: Sent Specimen: Body Fluid from Retroperitoneum AFB Culture And Stain [[id number]] Collected: 04/11/25 162 Order Status: Sent Specimen: Body Fluid from Retroperitoneum Radiology Results (last day) Procedure Component Value Units Date/Time CT DRAINAGE PERITONEAL/RETROPERITONEAL W GUIDANCE [[id number]] Resulted: 04/11/25 1544 Order Status: Sent Updated: 04/11/25 1629 XR chest AP portable [[id number]] Collected: 04/11/25 1224 Order Status: Completed Updated: [...] CT ABDOMEN/PELVIS WITH IV CONTRAST Standard Protocol [[id number]] Collected: 04/11/25 1000 Order Status: Completed Updated: [...] Complicated Diverticulitis with Colovesicular Fistula H/O of Lambrook's procedure with subsequent reversal and incisional hernia [...] multidisciplinary team including nurse practitioner, nurse, RT, fisher spear, pharmacist, and case management during multidisciplinary round. I Dr.Al Carter, have personally evaluated the patient and performed a mxin-tu-khsf diagnostic evaluation on this patient; I have Obtained history, performed physical examination, reviewed laboratory studies. I have independently interpreted chest images. I have actively directed the medical care, formulated diagnosis, and the plan of care. Patient requires a high complexity of decision making for assessment. 35 minutes critical care time was spent. Voice time signal wirer technology ([employer]) is used for dictation of this note and sound-alike words might be erroneously placed despite reviewing the note for accuracy. Errors in dictation may reflect use of voice recognition software and not all errors in time signal wirer may have been detected prior to signing. [...] STENT INSERTION; Surgeon: Rebekah Lockhart MD; Location: [facility]; Service: General Surgery; Laterality: Bilateral; HAND SURGERY Bilateral HERNIA REPAIR LAPAROSCOPY,LOW ANTERIOR RESECTION N/A 04/09/2025 Procedure: (OPEN LOW ANTERIOR RESECTION WITH TAKEDOWN OF COLOVESICAL FISTULA DIVERTING LOOP ILEOSTOMY VENTRAL HERNIA REPAIR AND CYSTOSCOPY AND STENTS) EXPLANTS OF MESH, REDO LAR,EX LAP LYSIS OF ADHESIONS; Surgeon: Rebekah Lockhart MD; Location: [facility]; Service: General Surgery; Laterality: N/A; General Visit [...] does not look like a loop of bowel. I have reviewed films with Dr. Gaviria. Examination: [...] I do not feel that this is rental sales representative of anastomotic leak as drainage does [...] from the original note were not included. [facility] INFECTIOUS DISEASE PROGRESS NOTE Levar Rand 1960 [id number] Date of consult: 04/10/2025 Admit date: 04/09/2025 [...] hernia status post ventral hernia repair with [place]-Pablo 2013, and colovesical fis sandra. Possible need for pacemaker but held off because of fistula. The patient was admitted for an elective repair to [facility] 04/09/2025. He underwent surgery with Dr. [...] STENT INSERTION; Surgeon: Rebekah Lockhart MD; Location: [facility]; Service: General Surgery; Laterality: Bilateral; HAND SURGERY Bilateral HERNIA REPAIR LAPAROSCOPY,LOW ANTERIOR RESECTION N/A 04/09/2025 Procedure: (OPEN LOW ANTERIOR RESECTION WITH TAKEDOWN OF COLOVESICAL FISTULA DIVERTING LOOP ILEOSTOMY VENTRAL HERNIA REPAIR AND CYSTOSCOPY AND STENTS) EXPLANTS OF MESH, REDO LAR,EX LAP LYSIS OF ADHESIONS; Surgeon: Rebekah Lockhart MD; Location: [facility]; Service: General Surgery; Laterality: N/A; Pediatric History [...] 12 mg oral BID 12 mg at 04/11/25 0818 atorvastatin 40 mg oral Every Night 40 mg at 04/10/252052 cefTRIAXone 2 g intravenous Q24H IVPB Stopped at 04/11/25 0844 enoxaparin 40 mg subcutaneous Q24H 40 mg at 04/10/25 1720 [Held by provider] metoprolol succinate 50 mg oral Every Night metroNIDAZOLE 500 mg intravenous Q6H AWA IVPB Stopped at 04/11/25 0639 pantoprazole 40 mg intravenous Daily 40 mg at 04/11/25 0814 QUEtiapine 200 mg oral Every Night 200 [...] Rebekah Lockhart MD 125 mL/hr at 04/11/25 [id number] mL at 04/11/25 0759 alvimopan (ENTEREG) capsule [...] 100 mL (premix) 500 mg intravenous Q6H [facility] Rebekah Lockhart MD IVPB Stopped at 04/11/25 [...] Once Rebekah Lockhart MD 500 mL/hr at 04/11/25918 1,000 mL at 04/11/25918 tiZANidine (ZANAFLEX) tablet 4 mg 4 mg oral TID Ismaeel Mercedes, DO 4 mg at 04/11/25813 PRN Meds:.@MEDSPRN@ Please refer to the medical [...] new clinical results. Recent Labs Lab(s) Units 04/11/2532504/10/2532104/09/252017 WBC K/??L 14.2* 16.0* 22.1* HGB GM/DL 9.8* 9.3* 10.5* HCT % 30.2* 29.0* 31.8* PLT K/CU MM 215 241 275 Recent Labs Lab(s) Units 04/11/2524 04/11/25 0326 NA meq/L -- 136 K meq/L [...] Value Units Date/Time XR chest AP portable [[id number]] Resulted: 04/11/25 1100 Order Status: Sent Updated: 04/11/[address] ABDOMEN/PELVIS WITH IV CONTRAST Standard Protocol [[id number]] Collected: 04/11/25 1000 Order Status: Completed Updated: [...] Roro Gaviria MD XR chest AP portable [[id number]] Collected: 04/10/25 0747 Order Status: Completed Updated: [...] of inflammation, with partial resection of previous [place] mesh. Fluid in the left inguinal canal [...] but no rebekah abscess. Does also have [place]-Texmesh in place which was partially resected. Future concerns could include potential infection of [place] mesh which is a difficult clinical problem [...] - 04/11/2025 11:00 AM EDTSummary: Ostomy Education [facility] RN present for education regarding new ileostomy Upon arrival patient resting on Katherine support surface, patient agreeable teaching/education. All ostomy teaching per [place] ileostomy folder that was left with patient. Patient knowledgeable about ostomy care due to previously having a colostomy. Teach and instruct daily ostomy care, diet, what stoma should look like and when to call doctor.Teach and instruct how to open and close pouch. Teach and instruct how to contact ostomy clinic after discharge with any ostomy complications. Patient is currently using a one-piece [place] system.A follow- up visit will be provided [...] a seal cannot be maintained. * Dawn Serrano, VICE PRESIDENT SUPPLY CHAIN - 04/11/2025 10:24 AM EDT Images from [...] Date of Co-treated by: OT Assisted by: aircraft avionics technician Precautions Weight-Bearing Status: Full Weight Bearing (FWB) [...] equipment discharge needs at this time. Goals Pvrlay-ee-trj: By the target date, patient will perform lsongx-ti-blc with modified independence, utilizing bed railing, to improve independence with bed mobility and improve overall comfort and well-being. Bhx-sq-cyfnu: By the target date, patient will perform [...] - 2:10 PM EDT Cosigned by Theo Gutierrez PT at 04/13/2025 2:06 PM EDT Associated [...] POC-GLUCOSE 112 (H) 70 - 110 mg/dL Gang Vibrator Operator [id number] Glucose, Nova Meter Status: Abnormal Collection Time: 04/10/25 6:15 PM Result Value Ref Range POC-GLUCOSE 115 (H) 70 - 110 mg/dL Gang Vibrator Operator [id number] Glucose, Nova Meter Status: Abnormal Collection Time: 04/10/25 11:28 PM Result Value Ref Range POC-GLUCOSE 132 (H) 70 - 110 mg/dL Gang Vibrator Operator [id number] CBC w Manual Diff (SJ-BKR) Status: Abnormal [...] Estimate Adequate Adequate Anisocytosis 1+ Hypochromia 1+ [place] Cells 1+ Ovalocytes 1+ ANC# 12.92 K/??L Glucose, Nova Meter Status: Abnormal Collection Time: 04/11/25 5:24 AM Result Value Ref Range POC-GLUCOSE 119 (H) 70 - 110 mg/dL Gang Vibrator Operator [id number] XR chest AP portable Narrative: PORTABLE CHEST [...] POC-GLUCOSE 112 (H) 70 - 110 mg/dL Gang Vibrator Operator [id number] Glucose, Nova Meter Status: Abnormal Collection Time: 04/10/25 6:15 PM Result Value Ref Range POC-GLUCOSE 115 (H) 70 - 110 mg/dL Gang Vibrator Operator [id number] Glucose, Nova Meter Status: Abnormal Collection Time: 04/10/25 11:28 PM Result Value Ref Range POC-GLUCOSE 132 (H) 70 - 110 mg/dL Gang Vibrator Operator [id number] CBC w Manual Diff (SJ-BKR) Status: Abnormal [...] POC-GLUCOSE 119 (H) 70 - 110 mg/dL Gang Vibrator Operator [id number] XR chest AP portable Narrative: PORTABLE CHEST [...] eroded through preperitoneal lining as wellas exposed [place] mesh from his ventral abdominal hernia repair. [...] POC-GLUCOSE 128 (H) 70 - 110 mg/dL Gang Vibrator Operator [id number] Glucose, Nova Meter Status: Abnormal Collection Time: 04/10/25 12:58 PM Result Value Ref Range POC-GLUCOSE 112 (H) 70 - 110 mg/dL Gang Vibrator Operator [id number] XR chest AP portable Narrative: PORTABLE CHEST [...] through preperitoneal lining as well as exposed [place] mesh from his ventral abdominal hernia repair. Also underwent ventral hernia repair primarily with suture and diverting loop ileostomy. Plan Plan I like to keep him in the ICU for now. I think will be a lot for the nurses to handle Continue on IV antibiotics for now Continue NG tube, may be able to remove tomorrow Ostomy education * CANDIE Gilbert/David - 04/10/2025 3:57 PM EDT Images from the original note were not included. Inpatient Occupational Therapy Initial Evaluation Patient Name: Levar Rand Date of : 1960 Date of Evaluation: 04/10/25 Start Time: 1411 Stop Time: 1445 Session Duration: 33 minutes [...] STENT INSERTION; Surgeon: Rebekah Lockhart MD; Location: [facility]; Service: General Surgery; Laterality: Bilateral; HAND SURGERY Bilateral HERNIA REPAIR LAPAROSCOPY,LOW ANTERIOR RESECTION N/A 04/09/2025 Procedure: (OPEN LOW ANTERIOR RESECTION WITH TAKEDOWN OF COLOVESICAL FISTULA DIVERTING LOOP ILEOSTOMY VENTRAL HERNIA REPAIR AND CYSTOSCOPY AND STENTS) EXPLANTS OF MESH, REDO LAR,EX LAP LYSIS OF ADHESIONS; Surgeon: Rebekah Lockhart MD; Location: [facility]; Service: General Surgery; Laterality: N/A; General Visit [...] The patient's fine motor coordination is intact. Jaqaoj-pm-hztc: LUE (4) Normal performance, RUE (4) Normal performance Sensation: Patient reports no sensation deficits. Bed Mobility Supine to sit: Standby assist Sit to supine: Standby assist Transfers Sit to stand:Contact guard Stand to sit:Contact guard Side steps: Contact guard ADLs Feeding:Standby Assist Grooming:Standby Assist Bathing:ROBERTO-Unable to assess Upper body dressing:Standby Assist Lower body dressing:Moderate Assistance Toileting:Standby Assist Outcome Measures [facility] Daily Living Functional Assessment How much help [...] (Minimal/Contact guard/Supervision/Setup) 4=None (Modified independent/Independent) The patient's [facility] raw score is 20. The patient currently has 38.32% functional impairment. Clinicians are most likely to recommend inpatient/SNF/joint terminal attack controller care for patients with scores between 6-17, [...] the patient's discharge summary. Electronically signed by JESUSITA Gilbert - 04/10/2025 - 3:57 PM EDT OT [...] well and preferred to receive education tomorrow. [facility] RN left [place] ileostomy folder with patient. Patient currently in aone piece [place] pouching system. Will provide follow-up visits for continuing education. Stoma assessment as above. Please contact wound/ostomy team if unable to maintain ostomy seal. * Chaplain Alireza - 04/10/2025 11:55 AM EDT Spiritual Care Progress Note Intensive Care Patient in bed, alert. Patient has a strong, personal Hinduism jil. He has 3 children and reportedly [...] By: Name and Date of Assisted by: aircraft avionics technician Precautions Weight-Bearing Status: No Restrictions Precautions: Fall [...] exercises and improving activity tolerance. Outcome Measures AM-PAC Basic Mobility Inpatient Short Form How [...] access to the recommended DME/adaptive equipment. Goals Yiynho-sg-hzl: By the target date, patient will perform akfavw-vs-umn with modified independence, utilizing bed railing, to improve independence with bed mobility and improve overall comfort and well-being. Arr-lo-kafcq: By the target date, patient will perform [...] POC-GLUCOSE 161 (H) 70 - 110 mg/dL Gang Vibrator Operator [id number] CALCIUM Ionized Status: Abnormal Collection Time: 04/09/25 [...] POC-GLUCOSE 128 (H) 70 - 110 mg/dL Gang Vibrator Operator [id number] XR chest AP portable Narrative: PORTABLE CHEST [...] POC-GLUCOSE 161 (H) 70 - 110 mg/dL Gang Vibrator Operator [id number] CALCIUM Ionized Status: Abnormal Collection Time: 04/09/25 [...] POC-GLUCOSE 128 (H) 70 - 110 mg/dL Gang Vibrator Operator [id number] No results found for: PT , INR [...] Value Units Date/Time XR chest AP portable [[id number]] Collected: 04/10/25 0747 Order Status: Completed Updated: [...] Complicated Diverticulitis with Colovesicular Fistula H/O of Lambrook's procedure with subsequent reversal and incisional hernia [...] personally evaluated the patient and performed a zzwv-mp-qmrx diagnostic evaluation on this patient; I have Obtained history, performed physical examination, reviewed laboratory studies. I have independently interpreted chest images. I have actively directed the medical care, formulated diagnosis, and the plan of care. Patient requires a high complexity of decision making for assessment.Voice time signal wirer technology ([employer]) is used for dictation of this note and sound-alike words might be erroneously placed despite reviewing the note for accuracy. Errors in dictation may reflect use of voice recognition software and not all errors in time signal wirer may have been detected prior to signing. [...] diverticulitis with a Acosta's procedure back in 2011 with subsequent reversal in that year. He eventually developed an incisional hernia and underwent open ventral hernia repair with [place]-P[place] mesh in 2013. He redeveloped an incisional hernia and was originally sent to Dr. Kulwinder Ochoa however upon review of the CT scan there is noted signs concerningfor colovesicular fistula immediately proximal to his anastomosis. I personally performed colonoscopy at that time which showed no signs of malignancy. There is a [place] anastomosis at 23 cm from the anal [...] He actually has not. He saw his manager integrated for significant workup and had plans for [...] lab Full report to follow. Cosigned by Sally Gaviria MD at 04/11/2025 4:32 PM EDT * KASHIF Prieto - 04/11/2025 3:56 PM EDT ASA Mallampati score: Immediately prior to the procedure, I performed an ASA and or Mallampati assessment. ASA 2 - Patient with mild systemic disease with no functional limitations Mallampati score: II (hard and soft palate, upper portion of tonsils anduvula visible) KASHIF Prieto 3:57 PM Cosigned by A Pete Gaviria MD at 04/11/2025 4:08 PM EDT [...] STENT INSERTION; Surgeon: Rebekah Lockhart MD; Location: [facility]; Service: General Surgery; Laterality: Bilateral; HAND SURGERY Bilateral HERNIA REPAIR LAPAROSCOPY,LOW ANTERIOR RESECTION N/A 04/09/2025 Procedure: (OPEN LOW ANTERIOR RESECTION WITH TAKEDOWN OF COLOVESICAL FISTULA DIVERTING LOOP ILEOSTOMY VENTRAL HERNIA REPAIR AND CYSTOSCOPY AND STENTS) EXPLANTS OF MESH, REDO LAR,EX LAP LYSIS OF ADHESIONS; Surgeon: Rebekah Lockhart MD; Location: [facility]; Service: General Surgery; Laterality: N/A; Allergies: No [...] mg oral Every Night 40 mg at 04/13/25 2042 cefTRIAXone 2 g intravenous Q24H IVPB Stopped at 04/14/25 1016 enoxaparin 40 mg subcutaneous Q24H 40 mg at 04/13/25 1700 hydrogen peroxide topical BID Given at 04/14/25 1041 [Held by provider] metoprolol succinate 50 mg oral Every Night metroNIDAZOLE 500 mg intravenous Q6H [facility] IVPB Stopped at 04/14/25 08 pantoprazole 40 mg intravenous Daily 40 mg [...] Continuous Rebekah Lockhart MD 75 mL/hr at 04/13/254 75 mL/hr at 04/13/25 213 [Held by provider] metoprolol succinate (TOPROL-XL) 24 hr tablet 50 mg 50 mg oral Every Night MD Inocencio metroNIDAZOLE (FLAGYL) IVPB 500 mg in sodium chloride 0.9 % 100 mL (premix) 500 mg intravenous Q6H [facility] Rebekah Lockhart MD IVPB Stopped at 08/09/25 0822 morphine injection 4 mg 4 mg intravenous [...] 5 mg 5 mg oral Q4H PRN Reebkah Lockhart MD 5 mg at04/14/25 1041 pantoprazole (PROTONIX) injection 40 mg 40 mg intravenous Daily Rebekah Lockhart MD 40 mg at 04/14/25 0823 QUEtiapine (SEROquel) tablet 200 mg 200 mg [...] No results found for: CBC Recent Labs 04/11/25325 WBC 14.2* HGB 9.8* HCT 30.2* PLT 215 Recent Labs 04/09/25201704/10/2532104/11/25 032 NA 138 137 137 136 K 4.7 4.5 4.5 4.0 CL 109 108 108 105 CO2 18* 20* 20* 18* CREATININE 1.00 0.84 0.84 0.96 BUN 10.6 10.9 10.9 10.7 CALCIUM 8.2* 8.1* 8.1* 8.7 MG 1.7 1.7 -- PHOS 3.5 -- -- Recent Labs 04/11/25325 PROT 6.3* ALBUMIN 3.0* BILITOT 0.8 ALT <7 AST 14 ALKPHOS 56 No results for input(s): PROTIME , PTT , INR in the last 72 hours. No results for input(s): GLU , POCGLUC in the last 72 hours. Radiology Results (last day) Procedure Component Value Units Date/Time XR chest AP portable [[id number]] Collected: 04/11/25 1224 Order Status: Completed Updated: [...] CT ABDOMEN/PELVIS WITH IV CONTRAST Standard Protocol [[id number]] Collected: 04/11/25 1000 Order Status: Completed Updated: [...] incorporated in at this time and recommend joint terminal attack controller antibiotics. May also require drain. Clinically his [...] Rodas RD - 04/10/2025 12:52 PM EDT DILAN ADIME NUTRITION ASSESSMENT ADIME Nutrition Assessment The [...] Night Ismaeel Mercedes, DO 40 mg at 04/09/25 203 cefTRIAXone [...] 100 mL (premix) 500 mg intravenous Q6H [facility] Rebekah Lockhart MD IVPB Stopped at 04/10/25 [...] TID Ismaeel Mercedes, DO 4 mg at 04/10/25 0807 Drips: LR Recent Labs 04/09/25201704/10/2532104/10/25 0539 NA 138 137 137 -- K [...] and Recommendations: Collaboration with other providers, General, [employer], and Commercial beverage Nutrition Monitoring and Goals: [...] from the original note were not included. [facility] INFECTIOUS DISEASE CONSULT/INITIAL HOSPITAL VISIT Levar Rand 1960 [id number] Date of consult: 04/10/2025 Admit date: 04/09/2025 Requesting Provider: @[email or web address]@ Evaluating physician: Murtaza Amato MD Reason for Consultation: Colovesical fistula repair 04/09/2025 Chief Complaint: Above Subjective History of present illness: Patient is a 65 y.o. Yr old male with a history of diabetes mellitus type 2, essential hypertension, hyperlipidemia, ongoing smoking, perforated diverticulitis with Zina procedure 2011 with reversal 2011, incisional hernia status post ventral hernia repair with [place]-Pablo 2013, and colovesical fis sandra. Possible need for pacemaker but held off because of fistula. The patient was admitted for an elective repair to [facility] 04/09/2025. He underwent surgery with Dr. [...] Every Night metroNIDAZOLE 500 mg intravenous Q6H [facility] IVPB Stopped at 04/10/2549 pantoprazole 40 mg intravenous Daily 40 mg [...] Continuous Rebekah Lockhart MD 75 mL/hr at 04/10/2549 75 mL/hr at 04/10/25648 [Held by provider] metoprolol succinate (TOPROL-XL) 24 hr tablet 50 mg 50 mg oral Every Night MD Inocencio metroNIDAZOLE (FLAGYL) IVPB 500 mg in sodium chloride 0.9 % 100 mL (premix) 500 mg intravenous Q6H [facility] Rebekah Lockhart MD IVPB Stopped at 04/10/25648 morphine injection 4 mg 4 mg intravenous [...] new clinical results. Recent Labs Lab(s) Units 04/10/25 0322 04/09/252017 WBC K/??L 16.0* 22.1* HGB GM/DL 9.3* 10.5* HCT % 29.0* 31.8* PLT K/CU MM 241 275 Recent Labs Lab(s) Units 04/10/25 0539 04/10/25 0322 NA meq/L -- 137 137 K meq/L -- 4.5 4.5 CL meq/L -- 108 108 CO2 meq/L -- 20* 20* BUN mg/dL -- 10.9 10.9 CREATININE mg/dL -- 0.84 0.84 GLUCOSE mg/dL 128* 146* 146* CALCIUM mg/dL -- 8.1* 8.1* Recent Labs Lab(s) Units 04/10/25 0322 ALKPHOS U/L 50 BILITOT mg/dL 0.8 ALT [...] Value Units Date/Time XR chest AP portable [[id number]] Resulted: 04/10/25 0745 Order Status: Sent Updated: 04/09/252047 IMPRESSION: Colovesical fistula repaired 04/09/2025 without obvious abscess but some evidence of inflammation, with partial resection of previous [place] mesh. Leukocytosis, neutrophilic related to above issues. [...] at the time of surgery but no rebekha abscess. Does also have [place] mesh in place which was partially resected. Future concerns could include potential infection of [place] mesh which is a difficult clinical problem [...] POC-GLUCOSE 161 (H) 70 - 110 mg/dL Gang Vibrator Operator [id number] No results found for: PT , INR [...] Complicated Diverticulitis with Colovesicular Fistula H/O of Lambrook's procedure with subsequent reversal and incisional hernia [...] ordered Antibx Flagyl NPO PT/OT Protonix/Lovenox Wesley Goncalves APRN CCT 40 minutes Cosigned by Erica Montanez MD at 04/27/2025 12:54 PM EDT * Jah Long DO - 04/09/2025 3:52 PM EDT Internal [...] Surgeon(s): Rebekah Lockhart MD Anesthesia: General Staff: Store Assistant: Aditya Vazquez RN Scrub: Charmaine Gonsales; Long Trevizo Store Assistant Hospital Manager: Rafaela Vee RN First Assist: Felicitas Ramirez C.S.A. @SURASST@ was responsible for performing the following activities: retraction, suctioning, closing and their skilled assistance was necessary for the success of this case. Estimated Blood Loss: 250 mL from 04/09/2025 7:46 AM to 04/09/2025 11:23 AM Urine Voided: See Anesthesia Note Specimens: Specimens (From admission, onward) Start Ordered 04/09/25950 Tissue Exam RELEASE UPON ORDERING 04/09/25 0951 [...] I explanted some of the not incorporated [place] meshfrom the ventral abdominal wall. Abdominal wall [...] All lap pads were then removed from theabdomen. 19 Spanish Kenrick drain was inserted through the left hemiabdomen and placed in the pelvis adjacent to the anastomosis as well as this mesh. I then turned my attention to the anterior abdominal wall where there was some [place] mesh, some of this was not incorporated which was excised and passed off to pathology. The other portion of the mesh was rather well incorporated and I did not think it was necessary to explant this. Lastly identified a portion of terminal ileum which was appropriate to serve as a diverting loop ileostomy. I excised the cord site skin defect that was marked forher ileostomy, this was noted to be rather wide so I did bring this more towards the middle portionof the abdomen where went through the fascia. The small bowel was eviscerated but later returned toher ileostomy. #1 PDS looped was then used in a running fashion to reapproximate the abdominal wallfascia. 0 Vicryl retention sutures were used and [...] was a bulbar urethral stricture which was presentbut dilated easily using the scope. Patten cystoscopy [...] this hospitalization Outcome: Progressing Flowsheets (Taken 04/09/2025 1079) Cultural Requests During Hospitalization: none Spiritual Requests During Hospitalization: none Problem: Anxiety Goal: Anxiety is at manageable level Description: Assess and monitor patient's anxiety level. Monitor for signs and symptoms of anxietyboth physical and emotional (heart palpitations, chest pain, shortness of breath, headaches, nausea, feeling jumpy, restlessness, irritable, apprehensive). Collaborate with interdisciplinary team andinitiate plan and interventions as ordered. Outcome: Progressing [...] W GUIDANCE Routine 04/11/2025 4:28 PM EDT [facility] MICRO REFERENCE LAB Routine 04/11/2025 4:26 PM [...] 04/09/2025 11:2 6 AM EDT TISSUE EXAM ([place]) AP Routine 04/09/2025 9 :50 AM EDT Vesicointestinal fistula CA CYSTO W/INSERT URETERAL STENT 04/09/2025 7:46 AM EDT Vesicointestinal fistula Case Notes IN 0530 , 3h (R), PASS, TAP BLOCK, PA REQUESTED, DR CANCINO DOING STENTS CA COLECTOMY PRTL W/COLOPROCTOSTOMY 04/09/2025 7:46 AM EDT Vesicointestinal fistula Case Notes IN 0530 , 3h (R), PASS, TAP BLOCK, PA REQUESTED, DR CANCINO DOING STENTS TYPE AND SCREEN ([place] BKR) STAT 04/09/2025 7:00 AM EDT ISTAT GLUCOSE POC Routine 04/09/2025 6: 49 AM EDT POCT-POTASSIUM Routine 04/09/2025 6:49 AM EDT EKG-SCANNED 04/09/2025 documented in this encounter Results * (ABNORMAL) Creatine Kinase (CK) (04/16/2025 4:21 AM EDT) Total CK 22(L) 30 - 200 U/L 04/16/2025 11:[address] [facility] Blood ENTIRE RIGHT UPPER ARM / Unknown Venipuncture / Unknown 04/16/2025 4:21 AM EDT 04/16/2025 4:45 AM EDT us Murtaza Amato MD LAB BLOOD ORDERABLES Final Re sult [facility] [address] [phone] * (ABNORMAL) CBC with Automated Diff (04/16/2025 4:21 AM EDT) WBC 12.8(H) 4.2 - 9.1 K/ L 04/16/2025 4:[address] [facility] RBC 3.35(L) 4.63 - 6.08 M/ L 04/16/2025 4:[address] [facility] Hemoglobin 9.2(L) 13.7 - 17.5 GM/DL 04/16/2025 4:[address] [facility] Hematocrit 28.6(L) 40.1 - 51.0 % 04/16/2025 4:[address] [facility] MCV 85 79 - 92 fL 04/16/2025 4:[address] [facility] MCH 27.5 25.7 - 32.2 pg 04/16/2025 4:[address] [facility] MCHC 32.2(L) 32.3 - 36.5 GM/DL 04/16/2025 4:[address] [facility] RDW 14.6(H) 11.6 - 14.4 % 04/16/2025 4:[address] [facility] Platelets 345 140 - 375 K/CU MM 04/16/2025 4:[address] [facility] MPV 8.6(L) 9.4 - 12.4 fL 04/16/2025 4:[address] [facility] % Neutros 71(H) 34 - 68 % 04/16/2025 4:[address] [facility] % Lymphs 14(L) 22 - 53 % 04/16/2025 4:[address] [facility] % Monos 11 5 - 12 % 04/16/2025 4:[address] [facility] % Eos 3 1 - 7 % 04/16/2025 4:[address] [facility] % Baso 0 0 - 1 % 04/16/2025 4:[address] [facility] NRBC Absolute <0.01 0 - 0.012 K/ul 04/16/2025 4:[address] [facility] # Neutros 9.08(H) 1.78 - 5.38 K/ L 04/16/2025 4:[address] [facility] # Lymphs 1.73 1.32 - 3.57 K/ L 04/16/2025 4:[address] [facility] # Monos 1.37(H) 0.30 - 0.82 K/ L 04/16/2025 4:[address] [facility] # Eos 0.42 0.04 - 0.54 K/ L 04/16/2025 4:[address] [facility] # Baso 0.04 0.01 - 0.08 K/ L 04/16/2025 4:[address] [facility] Immature Granulocytes-Re lative 1.50(H) 0.01 - 0.43 % 04/16/2025 4:[address] [facility] # IG 0.19(H) 0.00 - 0.03 K/uL 04/16/2025 4:[address] [facility] Blood ENTIRE RIGHT UPPER ARM / Unknown Venipuncture / Unknown 04/16/2025 4:21 AM EDT 04/16/2025 4:[address] [facility] - 04/16/2025 4:52 AM EDT When [...] MD LAB BLOOD ORDERABLES Final Re sult [facility] [address] [place] [id number] [phone] * (ABNORMAL) Basic Metabolic Panel (04/16/2025 4:21 AM EDT) Sodium 139 136 - 145 meq/L 04/16/2025 5:[address] [facility] Potassium 3.6 3.4 - 5.1 meq/L 04/16/2025 5:[address] [facility] CO2 22 22 - 29 meq/L 04/16/2025 5:[address] [facility] Chloride 110 98 - 112 meq/L 04/16/2025 5:[address] [facility] Glucose 103 82 - 115 mg/dL 04/16/2025 5:[address] [facility] BUN 6.0(L) 8.4 - 25.7 mg/dL 04/16/2025 5:[address] [facility] Creatinine 0.71(L) 0.72 - 1.25 mg/dL 04/16/2025 5:[address] [facility] BUN/Creatinine 8 8 - 20 04/16/2025 5:[address] [facility] Calcium 7.9(L) 8.4 - 10.2 mg/dL 04/16/2025 5:[address] [facility] Anion Gap 11 4 - 12 04/16/2025 5:[address] [facility] eGFR (mL/min/1.73m2) 101 >=60 mL/min/1.7 3m2 04/16/2025 5:[address] [facility] Osmolality Calc 275.4 mOsm/kg 5:[address] [facility] Blood ENTIRE RIGHT UPPER ARM / Unknown Venipuncture / Unknown 04/16/2025 4:21 AM EDT 04/16/2025 4:45 AM EDT us Hilary Dumont MD LAB BLOOD ORDERABLES Final Re sult [facility] [address] [phone] * (ABNORMAL) Glucose, Nova Meter (04/15/2025 10:47 PM EDT) POC-GLUCOSE 133(H) 70 - 110 mg/dL 04/15/2025 10:[address] [facility] Comment: In the event of poor peripheral blood flow, venous or arterial blood should be used due to the potential of erroneous results. Protocols Followed Gang Vibrator Operator [id number] 04/15/2025 10:[address] [facility] Blood WHOLE BLOOD / Unknown 04/15/2025 10:47 PM EDT 04/15/2025 10:49 PM EDT [facility] - 04/15/2025 10:49 PM EDT Gang Vibrator Operator ID is - [id number] us Hilary Dumont MD POINT OF CARE TEST ORDERABLES Final Result [facility] [address] [phone] * (ABNORMAL) Glucose, Nova Meter (04/15/2025 4:42 PM EDT) POC-GLUCOSE 121(H) 70 - 110 mg/dL 04/15/2025 4:[address] [facility] Comment: In the event of poor peripheral blood flow, venous or arterial blood should be used due to the potential of erroneous results. Protocols Followed Gang Vibrator Operator [id number] 04/15/2025 4:[address] [facility] Blood WHOLE BLOOD / Unknown 04/15/2025 4:42 PM EDT 04/15/2025 4:[address] [facility] - 04/15/2025 4:43 PM EDT Gang Vibrator Operator ID is - [id number] us Hilary Dumont MD POINT OF CARE TEST ORDERABLES Final Result [facility] [address] [phone] * CT ABDOMEN/PELVIS WITH IV CONTRAST Standard [...] - 110 mg/dL 04/15/2025 12:[address] [facility] Comment: In the event of poor peripheral blood flow, venous or arterial blood should be used due to the potential of erroneous results. Protocols Followed Gang Vibrator Operator [id number] 04/15/2025 12:[address] [facility] Blood WHOLE BLOOD / Unknown 04/15/2025 12:47 PM EDT 04/15/2025 12:[address] [facility] - 04/15/2025 12:48 PM EDT Gang Vibrator Operator ID is - [id number] us Hilary Dumont MD POINT OF CARE TEST ORDERABLES Final Result [facility] [address] [phone] * (ABNORMAL) Glucose, Nova Meter (04/15/2025 6:40 AM EDT) POC-GLUCOSE 139(H) 70 - 110 mg/dL 04/15/2025 6:[address] [facility] Comment: In the event of poor peripheral blood flow, venous or arterial blood should be used due to the potential of erroneous results. Protocols Followed Gang Vibrator Operator [id number] 04/15/2025 6:[address] [facility] Blood WHOLE BLOOD / Unknown 04/15/2025 6:40 AM EDT 04/15/2025 6:[address] [facility] - 04/15/2025 6:41 AM EDT Gang Vibrator Operator ID is - [id number] us Hilary Dumont MD POINT OF CARE TEST ORDERABLES Final Result [facility] [address] [phone] * (ABNORMAL) CBC with Automated Diff (04/15/2025 5:11 AM EDT) WBC 10.9(H) 4.2 - 9.1 K/ L 04/15/2025 5:[address] [facility] RBC 3.30(L) 4.63 - 6.08 M/ L 04/15/2025 5:[address] [facility] Hemoglobin 9.1(L) 13.7 - 17.5 GM/DL 04/15/2025 5:[address] [facility] Hematocrit 27.7(L) 40.1 - 51.0 % 04/15/2025 5:[address] [facility] MCV 84 79 - 92 fL 04/15/2025 5:[address] [facility] MCH 27.6 25.7 - 32.2 pg 04/15/2025 5:[address] [facility] MCHC 32.9 32.3 - 36.5 GM/DL 04/15/2025 5:[address] [facility] RDW 14.4 11.6 - 14.4 % 04/15/2025 5:[address] [facility] Platelets 288 140 - 375 K/CU MM 04/15/2025 5:[address] [facility] MPV 8.5(L) 9.4 - 12.4 fL 04/15/2025 5:[address] [facility] % Neutros 73(H) 34 - 68 % 04/15/2025 5:[address] [facility] % Lymphs 13(L) 22 - 53 % 04/15/2025 5:[address] [facility] % Monos 10 5 - 12 % 04/15/2025 5:[address] [facility] % Eos 3 1 - 7 % 04/15/2025 5:[address] [facility] % Baso 1 0 - 1 % 04/15/2025 5:[address] [facility] NRBC Absolute <0.01 0 - 0.012 K/ul 04/15/2025 5:[address] [facility] # Neutros 8.02(H) 1.78 - 5.38 K/ L 04/15/2025 5:[address] [facility] # Lymphs 1.38 1.32 - 3.57 K/ L 04/15/2025 5:[address] [facility] # Monos 1.07(H) 0.30 - 0.82 K/ L 04/15/2025 5:[address] [facility] # Eos 0.28 0.04 - 0.54 K/ L 04/15/2025 5:[address] [facility] # Baso 0.05 0.01 - 0.08 K/ L 04/15/2025 5:[address] [facility] Immature Granulocytes-Re lative 1.20(H) 0.01 - 0.43 % 04/15/2025 5:[address] [facility] # IG 0.13(H) 0.00 - 0.03 K/uL 04/15/2025 5:[address] [facility] Blood ENTIRE RIGHT UPPER ARM / Unknown Venipuncture / Unknown 04/15/2025 5:11 AM EDT 04/15/2025 5:[address] [facility] - 04/15/2025 5:33 AM EDT When [...] MD LAB BLOOD ORDERABLES Final Re sult [facility] [address] [phone] * (ABNORMAL) Basic Metabolic Panel (04/15/2025 5:11 AM EDT) Sodium 137 136 - 145 meq/L 04/15/2025 5:[address] [facility] Potassium 3.3(L) 3.4 - 5.1 meq/L 04/15/2025 5:[address] [facility] CO2 18(L) 22 - 29 meq/L 04/15/2025 5:[address] [facility] Chloride 110 98 - 112 meq/L 04/15/2025 5:[address] [facility] Glucose 155(H) 82 - 115 mg/dL 04/15/2025 5:[address] [facility] BUN 6.5(L) 8.4 - 25.7 mg/dL 04/15/2025 5:[address] [facility] Creatinine 0.74 0.72 - 1.25 mg/dL 04/15/2025 5:[address] [facility] BUN/Creatinine 9 8 - 20 04/15/2025 5:[address] [facility] Calcium 7.7(L) 8.4 - 10.2 mg/dL 04/15/2025 5:[address] [facility] Anion Gap 12 4 - 12 04/15/2025 5:[address] [facility] eGFR (mL/min/1.73m2) 100 >=60 mL/min/1.7 3m2 04/15/2025 5:[address] [facility] Osmolality Calc 274.8 mOsm/kg 5:[address] [facility] Blood ENTIRE RIGHT UPPER ARM / Unknown Venipuncture / Unknown 04/15/2025 5:11 AM EDT 04/15/2025 5:17 AM EDT us Hilary Dumont MD LAB BLOOD ORDERABLES Final Re sult [facility] [address] [phone] * Glucose, Nova Meter (04/14/2025 5:53 PM EDT) [facility] POC-GLUCOSE 106 70 - 110 mg/dL 04/14/2025 5:[address] [facility] Comment: In the event of poor peripheral blood flow, venous or arterial blood should be used due to the potential of erroneous results. Protocols Followed Gang Vibrator Operator [id number] 04/14/2025 5:[address] [facility] Blood WHOLE BLOOD / Unknown 04/14/2025 5:53 PM EDT 04/14/2025 5:54 PM EDT [facility] - 04/14/2025 5:54 PM EDT Gang Vibrator Operator ID is - [id number] us Hilary Dumont MD POINT OF CARE TEST ORDERABLES Final Result Performing Organization Address [facility] Co de [facility] Number [facility] [address] [phone] * (ABNORMAL) Glucose, Nova Meter (04/14/2025 12:33 PM EDT) [facility] POC-GLUCOSE 132(H) 70 - 110 mg/dL 04/14/2025 12:[address] [facility] Comment: In the event of poor peripheral blood flow, venous or arterial blood should be used due to the potential of erroneous results. Protocols Followed Gang Vibrator Operator [id number] 04/14/2025 12:[address] [facility] Blood WHOLE BLOOD / Unknown 04/14/2025 12:33 PM EDT 04/14/2025 12:34 PM EDT [facility] - 04/14/2025 12:34 PM EDT Gang Vibrator Operator ID is - [id number] us Hilary Dumont MD POINT OF CARE TEST ORDERABLES Final Result Performing Organization Address [facility] Co de Phone Number [facility] [address] [phone] * (ABNORMAL) Glucose, Nova Meter (04/14/2025 7:35 AM EDT) [facility] POC-GLUCOSE 118(H) 70 - 110 mg/dL 04/14/2025 7:[address] [facility] Comment: In the event of poor peripheral blood flow, venous or arterial blood should be used due to the potential of erroneous results. Protocols Followed Gang Vibrator Operator [id number] 04/14/2025 7:[address] [facility] Blood WHOLE BLOOD / Unknown 04/14/2025 7:35 AM EDT 04/14/2025 7:[address] [facility] - 04/14/2025 7:38 AM EDT Gang Vibrator Operator ID is - [id number] us Lizzy Kramer MD POINT OF CARE TEST ORDERABLES F inal Result [facility] [address] [phone] * (ABNORMAL) CBC - Hemogram (SJ-BKR) (04/14/2025 4:54 AM EDT) [facility] WBC 9.0 4.2 - 9.1 K/ L 04/14/2025 5:[address] [facility] RBC 2.94(L) 4.63 - 6.08 M/ L 04/14/2025 5:[address] [facility] Hemoglobin 8.2(L) 13.7 - 17.5 GM/DL 04/14/2025 5:[address] [facility] Hematocrit 25.3(L) 40.1 - 51.0 % 04/14/2025 5:[address] [facility] MCV 86 79 - 92 fL 04/14/2025 5:[address] [facility] MCH 27.9 25.7 - 32.2 pg 04/14/2025 5:[address] [facility] MCHC 32.4 32.3 - 36.5 GM/DL 04/14/2025 5:[address] [facility] RDW 14.6(H) 11.6 - 14.4 % 04/14/2025 5:[address] [facility] Platelets 250 140 - 375 K/CU MM 04/14/2025 5:[address] [facility] MPV 8.8(L) 9.4 - 12.4 fL 04/14/2025 5:[address] [facility] Blood Venipuncture / Unknown 04/14/2025 4:54 AM EDT 04/14/2025 5:14 AM EDT us Lizzy Kramer MD LAB BLOOD ORDERABLES Final Resu lt [facility] [address] [phone] * (ABNORMAL) Basic Metabolic Panel (04/14/2025 4:54 AM EDT) Sodium 139 136 - 145 meq/L 04/14/2025 5:[address] [facility] Potassium 3.5 3.4 - 5.1 meq/L 04/14/2025 5:[address] [facility] CO2 16(L) 22 - 29 meq/L 04/14/2025 5:[address] [facility] Chloride 111 98 - 112 meq/L 04/14/2025 5:[address] [facility] Glucose 104 82 - 115 mg/dL 04/14/2025 5:[address] [facility] BUN 9.5 8.4 - 25.7 mg/dL 04/14/2025 5:[address] [facility] Creatinine 0.70(L) 0.72 - 1.25 mg/dL 04/14/2025 5:[address] [facility] BUN/Creatinine 14 8 - 20 04/14/2025 5:[address] [facility] Calcium 7.4(L) 8.4 - 10.2 mg/dL 04/14/2025 5:[address] [facility] Anion Gap 16(H) 4 - 12 04/14/2025 5:[address] [facility] eGFR (mL/min/1.73m2) 102 >=60 mL/min/1.7 3m2 04/14/2025 5:[address] [facility] Osmolality Calc 276.7 mOsm/kg 5:[address] [facility] Blood Venipuncture / Unknown 04/14/2025 4:54 AM EDT 04/14/2025 5:14 AM EDT Lizzy Kramer MD LAB BLOOD ORDERABLES Final Resu lt Performing Organization Address [facility] Co de Phone Number [facility] [address] [phone] * (ABNORMAL) Glucose, Nova Meter (04/13/2025 11:14 AM EDT) Pathologist [facility] POC-GLUCOSE 175(H) 70 - 110 mg/dL 04/13/2025 11:[address] [facility] Comment: In the event of poor peripheral blood flow, venous or arterial blood should be used due to the potential of erroneous results. Notified Nurse RBV Gang Vibrator Operator [id number] 04/13/2025 11:[address] [facility] Blood WHOLE BLOOD / Unknown 04/13/2025 11:14 AM EDT 04/13/2025 11:[address] [facility] - 04/13/2025 11:15 AM EDT Gang Vibrator Operator ID is - [id number] Lizzy Kramer MD POINT OF CARE TEST ORDERABLES F inal Result Performing Organization Address [facility]/ZIP Co de Phone Number [facility] [address] [phone] * (ABNORMAL) Basic Metabolic Panel (04/13/2025 7:08 AM EDT) Pathologist [facility] Sodium 139 136 - 145 meq/L 04/13/2025 7:[address] [facility] Potassium 3.4 3.4 - 5.1 meq/L 04/13/2025 7:[address] [facility] CO2 18(L) 22 - 29 meq/L 04/13/2025 7:[address] [facility] Chloride 111 98 - 112 meq/L 04/13/2025 7:[address] [facility] Glucose 116(H) 82 - 115 mg/dL 04/13/2025 7:[address] [facility] BUN 8.5 8.4 - 25.7 mg/dL 04/13/2025 7:[address] [facility] Creatinine 0.74 0.72 - 1.25 mg/dL 04/13/2025 7:[address] [facility] BUN/Creatinine 11 8 - 20 04/13/2025 7:[address] [facility] Calcium 8.1(L) 8.4 - 10.2 mg/dL 04/13/2025 7:[address] [facility] Anion Gap 13(H) 4 - 12 04/13/2025 7:[address] [facility] eGFR (mL/min/1.73m2) 100 >=60 mL/min/1.7 3m2 04/13/2025 7:[address] [facility] Osmolality Calc 277.0 mOsm/kg 7:[address] [facility] Blood Venipuncture / Unknown 04/13/2025 7:08 AM EDT 04/13/2025 7:28 AM EDT us Rebekah Lockhart MD LAB BLOOD ORDERABLES Final R esult [facility] [address] [place] [id number] [phone] * (ABNORMAL) CBC - Hemogram (SJ-BKR) (04/13/2025 7:08 AM EDT) WBC 11.1(H) 4.2 - 9.1 K/ L 04/13/2025 7:[address] [facility] RBC 3.24(L) 4.63 - 6.08 M/ L 04/13/2025 7:[address] [facility] Hemoglobin 9.2(L) 13.7 - 17.5 GM/DL 04/13/2025 7:[address] [facility] Hematocrit 27.6(L) 40.1 - 51.0 % 04/13/2025 7:[address] [facility] MCV 85 79 - 92 fL 04/13/2025 7:[address] [facility] MCH 28.4 25.7 - 32.2 pg 04/13/2025 7:[address] [facility] MCHC 33.3 32.3 - 36.5 GM/DL 04/13/2025 7:[address] [facility] RDW 14.5(H) 11.6 - 14.4 % 04/13/2025 7:[address] [facility] Platelets 241 140 - 375 K/CU MM 04/13/2025 7:[address] [facility] MPV 9.1(L) 9.4 - 12.4 fL 04/13/2025 7:[address] [facility] Blood Venipuncture / Unknown 04/13/2025 7:08 AM EDT 04/13/2025 7:28 AM EDT us Rebekah Lockhart MD LAB BLOOD ORDERABLES Final R esult Performing Organization Address City/State/[facility] Co de Phone Number [facility] [address] [phone] * (ABNORMAL) Glucose, Nova Meter (04/12/2025 9:48 PM EDT) POC-GLUCOSE 115(H) 70 - 110 mg/dL 04/12/2025 9:[address] [facility] Comment:In the event of poor peripheral blood flow, venous or arterial blood should be used due to the potential of erroneous results. Gang Vibrator Operator [id number] 04/12/2025 9:[address] [facility] Blood WHOLE BLOOD / Unknown 04/12/2025 9:48 PM EDT 04/12/2025 9:[address] [facility] - 04/12/2025 9:49 PM EDT Gang Vibrator Operator ID is - [id number] Lizzy Kramer MD POINT OF CARE TEST ORDERABLES F inal Result Performing Organization Address [facility] Co de Phone Number [facility] [address] [phone] * (ABNORMAL) Glucose, Nova Meter (04/12/2025 4:49 PM EDT) POC-GLUCOSE 138(H) 70 - 110 mg/dL 04/12/2025 4:[address] [facility] Comment: In the event of poor peripheral blood flow, venous or arterial blood should be used due to the potential of erroneous results. Notified Nurse RBV Gang Vibrator Operator [id number] 04/12/2025 4:[address] [facility] Blood WHOLE BLOOD / Unknown 04/12/2025 4:49 PM EDT 04/12/2025 4:[address] [facility] - 04/12/2025 4:51 PM EDT Gang Vibrator Operator ID is - [id number] Lizzy Kramer MD POINT OF CARE TEST ORDERABLES F inal Result Performing Organization Address [facility]/ZIP Co de Phone Number [facility] [address] [phone] * Lactic Acid with reflex (SJ) (04/12/2025 3:50 PM EDT) Lactic Acid Level (mmol/L) 0.9 0.5 - 2.2 mmol/L 04/12/2025 4:[address] [facility] Blood ENTIRE LEFT UPPER ARM / Unknown Venipuncture / Unknown 04/12/2025 3:50 PM EDT 04/12/2025 4:17 PM EDT us Enrique Lopez MD LAB BLOOD ORDERABLES Final Resu lt Performing Organization Address [facility] Co de Phone Number [facility] [address] [phone] * (ABNORMAL) Glucose, Nova Meter (04/12/2025 11:53 AM EDT) POC-GLUCOSE 125(H) 70 - 110 mg/dL 04/12/2025 11:[address] [facility] Comment: In the event of poor peripheral blood flow, venous or arterial blood should be used due to the potential of erroneous results. Notified Nurse RBV Gang Vibrator Operator [id number] 04/12/2025 11:[address] [facility] Blood WHOLE BLOOD / Unknown 04/12/2025 11:53 AM EDT 04/12/2025 11:[address] [facility] - 04/12/2025 11:54 AM EDT Gang Vibrator Operator ID is - [id number] us Lizzy Kramer MD POINT OF CARE TEST ORDERABLES F inal Result Performing Organization Address [facility] Co de Phone Number [facility] [address] [phone] * (ABNORMAL) Glucose, Nova Meter (04/12/2025 8:27 AM EDT) POC-GLUCOSE 133(H) 70 - 110 mg/dL 04/12/2025 8:[address] [facility] Comment: In the event of poor peripheral blood flow, venous or arterial blood should be used due to the potential of erroneous results. Notified Nurse RBV Gang Vibrator Operator [id number] 04/12/2025 8:[address] [facility] Blood WHOLE BLOOD / Unknown 04/12/2025 8:27 AM EDT 04/12/2025 8:[address] [facility] - 04/12/2025 8:28 AM EDT Gang Vibrator Operator ID is - [id number] us Lizzy Kramer MD POINT OF CARE TEST ORDERABLES F inal Result [facility] [address] [phone] * (ABNORMAL) Manual Differential (04/12/2025 4:06 AM EDT) Total Counted 100 04/12/2025 5:[address] [facility] % Neutros (manual) 83(H) 50 - 65 % 04/12/2025 5:[address] [facility] % Lymphs (manual) 5(L) 24 - 44 % 04/12/2025 5:[address] [facility] % Monos (manual) 10(H) 4 - 5 % 04/12/20 25 5:[address] [facility] % Baso (manual) 1 0 - 1 % 5:[address] [facility] % Metamyelo (manual) 1 0 - 1 % 04/12/2025 5:[address] [facility] RBC Morphology abnormal(A) Normal 5:[address] [facility] Platelet Estimate Adequate Adequate 04/12/2025 5:[address] [facility] Anisocytosis 1+ 04/12/2025 5:[address] [facility] Hypochromia 1+ 04/12/2025 5:[address] [facility] Ovalocytes 1+ 04/12/2025 5:[address] [facility] ANC# 10.54 K/ L 04/12/2025 5:[address] [facility] Blood ENTIRE RIGHT UPPER ARM / Unknown Venipuncture / Unknown 04/12/2025 4:06 AM EDT 04/12/2025 4:11 AM EDT us Murtaza Amato MD LAB BLOOD ORDERABLES Final Re sult [facility] [address] [phone] * (ABNORMAL) Comprehensive metabolic panel (04/12/2025 4:06 AM EDT) Sodium 137 136 - 145 meq/L 04/12/2025 4:[address] [facility] Potassium 3.9 3.4 - 5.1 meq/L 04/12/2025 4:[address] [facility] Chloride 107 98 - 112 meq/L 04/12/2025 4:[address] [facility] CO2 17(L) 22 - 29 meq/L 04/12/2025 4:56 AM [facility] Calcium 8.3(L) 8.4 - 10.2 mg/dL 04/12/2025 4:56 AM [facility] Glucose 94 82 - 115 mg/dL 04/12/2025 4:56 AM [facility] BUN 10.7 8.4 - 25.7 mg/dL 04/12/2025 4:[address] [facility] Creatinine 0.83 0.72 - 1.25 mg/dL 04/12/2025 4:56 AM [facility] BUN/Creatinine 13 8 - 20 04/12/2025 4:56 AM [facility] eGFR (mL/min/1.73m2) 97 >=60 mL/min/1. 73m2 04/12/2025 4:56 AM [facility] Albumin 2.7(L) 3.5 - 5.0 g/dL 04/12/2025 4:[address] [facility] Alkaline Phosphatase 52 40 - 150 U/L 04/12/2025 4:56 AM [facility] ALT <7 <=45 U/L 04/12/2025 4:56 AM [facility] Comment: ALT2 reagent used for testing does not contain P5P supplementation and therefore may miss ALT elevations in patients with B6 deficiency. This population may be as high as 10% in the [place], with risk factors including malabsorption, drug interactions, and alcoholic hepatitis. AST 10(L) 11 - 34 U/L 04/12/2025 4:[address] [facility] Comment: AST2 reagent used for testing does not contain P5P supplementation and therefore may miss AST elevations in patients with B6 deficiency. This population may be as high as 10% in the [place], with risk factors including malabsorption, drug interactions, and alcoholic hepatitis. Total Bilirubin 0.5 0.2 - 1.2 mg/dL 04/12/2025 4:[address] [facility] Protein, Total 6.0(L) 6.4 - 8.3 g/dL 04/12/2025 4:[address] [facility] Globulin 3.3 2.5 - 4.1 g/dL 04/12/2025 4:[address] [facility] Anion Gap 17(H) 4 - 12 04/12/2025 4:[address] [facility] A/G Ratio 0.8 0.7 - 1.9 04/12/2025 4:[address] [facility] Osmolality Calc 272.9 mOsm/kg 4:[address] [facility] Blood ENTIRE RIGHT UPPER ARM / Unknown Venipuncture / Unknown 04/12/2025 4:06 AM EDT 04/12/2025 4:11 AM EDT us Murtaza Amato MD LAB BLOOD ORDERABLES Final Re sult [facility] [address] [place] [address] * (ABNORMAL) CBC w Manual Diff (SJ-BKR) (04/12/2025 4:06 AM EDT) WBC 12.7(H) 4.2 - 9.1 K/ L 04/12/2025 4:[address] [facility] RBC 3.31(L) 4.63 - 6.08 M/ L 04/12/2025 4:[address] [facility] Hemoglobin 9.2(L) 13.7 - 17.5 GM/DL 04/12/2025 4:[address] [facility] Hematocrit 28.9(L) 40.1 - 51.0 % 04/12/2025 4:[address] [facility] MCV 87 79 - 92 fL 04/12/2025 4:[address] [facility] MCH 27.8 25.7 - 32.2 pg 04/12/2025 4:[address] [facility] MCHC 31.8(L) 32.3 - 36.5 GM/DL 04/12/2025 4:[address] [facility] RDW 14.7(H) 11.6 - 14.4 % 04/12/2025 4:[address] [facility] Platelets 225 140 - 375 K/CU MM 04/12/2025 4:[address] [facility] MPV 8.8(L) 9.4 - 12.4 fL 04/12/2025 4:[address] [facility] Blood ENTIRE RIGHT UPPER ARM / Unknown Venipuncture / Unknown 04/12/2025 4:06 AM EDT 04/12/2025 4:[address] [facility] - 04/12/2025 4:24 AM EDT Manual differentials can only be ordered once in a 24 hour time period. Please order CBC with Auto Diff if needed. Note: reference ranges were changed on 10/05/2023. us Murtaza Amato MD LAB BLOOD ORDERABLES Final Re sult [facility] [address] [phone] * Glucose, Nova Meter (04/11/2025 11:08 PM EDT) POC-GLUCOSE 99 70 - 110 mg/dL 04/11/2025 11:[address] [facility] Comment: In the event of poor peripheral blood flow, venous or arterial blood should be used due to the potential of erroneous results. Protocols Followed Gang Vibrator Operator [id number] 04/11/2025 11:[address] [facility] Blood WHOLE BLOOD / Unknown 04/11/2025 11:08 PM EDT 04/11/2025 11:[address] [facility] - 04/11/2025 11:40 PM EDT Gang Vibrator Operator ID is - [id number] Lizzy Kramer MD POINT OF CARE TEST ORDERABLES F inal Result [facility] [address] [place] [address], [facility] [phone] * Glucose, Nova Meter (04/11/2025 6:16 PM EDT) POC-GLUCOSE 90 70 - 110 mg/dL 04/11/2025 6:[address] [facility] Comment: In the event of poor peripheral blood flow, venous or arterial blood should be used due to the potential of erroneous results. Protocols Followed Gang Vibrator Operator [id number] 04/11/2025 6:[address] [facility] Blood WHOLE BLOOD / Unknown 04/11/2025 6:16 PM EDT 04/11/2025 6:[address] [facility] - 04/11/2025 6:17 PM EDT Gang Vibrator Operator ID is - [id number] Lizzy Kramer MD POINT OF CARE TEST ORDERABLES F inal Result [facility] [address] [place] [address], [facility] [phone] * MRSA Screen (04/11/2025 4:49 PM EDT) MRSA by PCR [facility] MRSA Not Detected by PCR MRSA Not Detected by PCR DEVICE ID9 04/11/2025 7:[address] [facility] Nasal BOTH ANTERIOR NARES / Unknown 04/11/2025 4:49 PM EDT 04/11/2025 5:03 PM EDT Murtaza Amato MD MICROBIOLOGY - GENERAL ORDERA BLES Final Result [facility] [address] [phone] * CT DRAINAGE PERITONEAL/RETROPERITONEAL W GUIDANCE (04/11/2025 [...] abscess. . ATTENDING RADIOLOGIST: Dr. Gaviria. PHYSICIAN HAZARDOUS MATERIALS ANALYST: Jean Pierre Hughes PA-C. PROCEDURE: After informed consent was obtained and a time-out was performed, the patient was prepped and draped in the usual sterile fashion over the left groin. Utilizing local anesthesia and sterile technique with a catheter access needle, access to the fluid collection was obtained under direct CT guidance. An Amplatz wire was placed. Serial dilatation was performed. A 10 Spanish pigtail catheter was placed looped in the [...] abscess. . ATTENDING RADIOLOGIST: Dr. Gaviria. PHYSICIAN HAZARDOUS MATERIALS ANALYST: Jean Pierre Hughes PA-C. PROCEDURE: After informed consent was obtained and a time-out was performed, the patient was prepped and draped in the usual sterile fashion over the left groin. Utilizing local anesthesia and sterile technique with a catheter access needle, access to the fluid collection was obtained under direct CT guidance. An Amplatz wire was placed. Serial dilatation was performed. A 10 Spanish pigtail catheter was placed looped in the [...] Concentration charged Done 04/23/2025 10:[address] [facility] Body Fluid RETROPERITONEAL COMPARTMENT STRUCTURE / Unknown 04/11/2025 4:26 PM EDT 04/11/2025 4:52 PM EDT Kulwinder Donovan MD MICROBIOLOGY - GENERAL ORDERABLE S Final Result Performing Organization Address [facility]/ZIP Co de Phone Number [facility] [address] [place] [address] * Micro Reference Lab (04/11/2025 4:26 PM EDT) Scan Result 04/27/2025 12:50 PM EDT [facility] NON-INTERFACED REFERENCE LAB Body Fluid RETROPERITONEAL COMPARTMENT STRUCTURE / Unknown 04/11/2025 4:26 PM EDT 04/11/2025 4:52 PM EDT Kulwinder Donovan MD MICROBIOLOGY - GENERAL ORDERABLE S Final Result Performing Organization Address [facility]/ZIP Co de Phone Number [facility] NON-INTERFACED REFERENCE LAB [facility] * (ABNORMAL) Anaerobic Culture (04/11/2025 4:26 PM EDT) Result Parabacteroides distasonis(A) 04/16/2025 7:[address] [facility] Body Fluid RETROPERITONEAL COMPARTMENT STRUCTURE / Unknown 04/11/2025 4:26 PM EDT 04/11/2025 4:52 PM EDT Kulwinder Donovan MD MICROBIOLOGY - GENERAL ORDERABLE S Final Result [facility] [address] [phone] * (ABNORMAL) Body Fluid Culture + Gram Stain (04/11/2025 4:26 PM EDT) Result Light Growth Enterococcus faecium(A) 04/16/2025 6:[address] [facility] Comment:Sent to reference la b for sensitivity testing. Result Light Growth Klebsiella pneumoniae(A) 04/16/2025 6:[address] [facility] Result Light Growth Clostridium tertium(A) 04/16/2025 6:[address] [facility] Comment:No susceptibility pe rformed Gram Stain Result Moderate gram positive cocci in pairs 04/16/2025 6:[address] [facility] Gram Stain Result Many WBCs 025 6:[address] [facility] Body Fluid RETROPERITONEAL COMPARTMENT STRUCTURE / [...] Klebsiella pneumoniae Trimethoprim + Sulfamethoxazole 2/38: Susceptible Kulwinder Donovan MD MICROBIOLOGY - GENERAL ORDERABLE S Final Result Performing Organization Address [facility] Co de Phone Number [facility] [address] [phone] * Glucose, Nova Meter (04/11/2025 12:57 PM EDT) [facility] POC-GLUCOSE 99 70 - 110 mg/dL 04/11/2025 12:[address] [facility] Comment: In the event of poor peripheral blood flow, venous or arterial blood should be used due to the potential of erroneous results. Protocols Followed Gang Vibrator Operator [id number] 04/11/2025 12:[address] [facility] Blood WHOLE BLOOD / Unknown 04/11/2025 12:57 PM EDT 04/11/2025 12:[address] [facility] - 04/11/2025 12:58 PM EDT Gang Vibrator Operator ID is - [id number] Lizzy Kramer MD POINT OF CARE TEST ORDERABLES F inal Result Performing Organization Address [facility] Co de Phone Number [facility] [address] [phone] * XR chest AP portable (04/11/2025 11:55 [...] Roro Gaviria. Transcribed by Giovany Meza PA-C. Enrique Lopez MD IMG DIAGNOSTIC IMAGING ORDERABL [...] Glucose, Nova Meter (04/11/2025 5:24 AM EDT) Pathologist [facility] POC-GLUCOSE 119(H) 70 - 110 mg/dL 04/11/2025 5:[address] [facility] Comment: In the event of poor peripheral blood flow, venous or arterial blood should be used due to the potential of erroneous results. Protocols Followed Gang Vibrator Operator [id number] 04/11/2025 5:[address] [facility] Blood WHOLE BLOOD / Unknown 04/11/2025 5:24 AM EDT 04/11/2025 5:[address] [facility] - 04/11/2025 5:26 AM EDT Gang Vibrator Operator ID is - [id number] us Rebekah Lockhart MD POINT OF CARE TEST ORDERABLE S Final Result [facility] [address] [phone] * (ABNORMAL) Manual Differential (04/11/2025 3:26 AM EDT) Pathologist [facility] Total Counted 100 04/11/2025 5:[address] [facility] % Neutros (manual) 88(H) 50 - 65 % 04/11/2025 5:[address] [facility] % Bands (manual) 3 % 04/11/20 25 5:[address] [facility] % Lymphs (manual) 6(L) 24 - 44 % 04/11/2025 5:[address] [facility] % Monos (manual) 3(L) 4 - 5 % 04/11/20 25 5:[address] [facility] RBC Morphology abnormal(A) Normal 5:[address] [facility] Platelet Estimate Adequate Adequate 04/11/2025 5:[address] [facility] Anisocytosis 1+ 04/11/2025 5:[address] [facility] Hypochromia 1+ 04/11/2025 5:[address] [facility] Ab Cells 1+ 04/11/2025 5:[address] [facility] Ovalocytes 1+ 04/11/2025 5:[address] [facility] ANC# 12.92 K/ L 04/11/2025 5:[address] [facility] Blood ENTIRE RIGHT UPPER ARM / Unknown Venipuncture / Unknown 04/11/2025 3:26 AM EDT 04/11/2025 3:31 AM EDT us Murtaza Amato MD LAB BLOOD ORDERABLES Final Re sult [facility] [address] [phone] * (ABNORMAL) Comprehensive metabolic panel (04/11/2025 3:26 AM EDT) Sodium 136 136 - 145 meq/L 04/11/2025 4:[address] [facility] Potassium 4.0 3.4 - 5.1 meq/L 04/11/2025 4:[address] [facility] Chloride 105 98 - 112 meq/L 04/11/2025 4:14 AM [facility] CO2 18(L) 22 - 29 meq/L 04/11/2025 4:14 AM [facility] Calcium 8.7 8.4 - 10.2 mg/dL 04/11/2025 4:14 AM [facility] Glucose 116(H) 82 - 115 mg/dL 04/11/2025 4:14 AM [facility] BUN 10.7 8.4 - 25.7 mg/dL 04/11/2025 4:14 AM [facility] Creatinine 0.96 0.72 - 1.25 mg/dL 04/11/2025 4:14 AM [facility] BUN/Creatinine 11 8 - 20 04/11/2025 4:14 AM [facility] eGFR (mL/min/1.73m2) 87 >=60 mL/min/1. 73m2 04/11/2025 4:14 AM [facility] Albumin 3.0(L) 3.5 - 5.0 g/dL 04/11/2025 4:14 AM [facility] Alkaline Phosphatase 56 40 - 150 U/L 04/11/2025 4:14 AM [facility] ALT <7 <=45 U/L 04/11/2025 4:14 AM [facility] Comment: ALT2 reagent used for testing does not contain P5P supplementation and therefore may miss ALT elevations in patients with B6 deficiency. This population may be as high as 10% in the [place], with risk factors including malabsorption, drug interactions, and alcoholic hepatitis. AST 14 11 - 34 U/L 04/11/2025 4:14 AM [facility] Comment: AST2 reagent used for testing does not contain P5P supplementation and therefore may miss AST elevations in patients with B6 deficiency. This population may be as high as 10% in the [place], with risk factors including malabsorption, drug interactions, and alcoholic hepatitis. Total Bilirubin 0.8 0.2 - 1.2 mg/dL 04/11/2025 4:14 AM [facility] Protein, Total 6.3(L) 6.4 - 8.3 g/dL 04/11/2025 4:[address] [facility] Globulin 3.3 2.5 - 4.1 g/dL 04/11/2025 4:[address] [facility] Anion Gap 17(H) 4 - 12 04/11/2025 4:[address] [facility] A/G Ratio 0.9 0.7 - 1.9 04/11/2025 4:[address] [facility] Osmolality Calc 272.2 mOsm/kg 4:[address] [facility] Blood ENTIRE RIGHT UPPER ARM / Unknown Venipuncture / Unknown 04/11/2025 3:26 AM EDT 04/11/2025 3:31 AM EDT us Murtaza Amato MD LAB BLOOD ORDERABLES Final Re sult [facility] [address] [phone] * (ABNORMAL) CBC w Manual Diff (SJ-BKR) (04/11/2025 3:26 AM EDT) WBC 14.2(H) 4.2 - 9.1 K/ L 04/11/2025 3:[address] [facility] RBC 3.54(L) 4.63 - 6.08 M/ L 04/11/2025 3:[address] [facility] Hemoglobin 9.8(L) 13.7 - 17.5 GM/DL 04/11/2025 3:[address] [facility] Hematocrit 30.2(L) 40.1 - 51.0 % 04/11/2025 3:[address] [facility] MCV 85 79 - 92 fL 04/11/2025 3:[address] [facility] MCH 27.7 25.7 - 32.2 pg 04/11/2025 3:[address] [facility] MCHC 32.5 32.3 - 36.5 GM/DL 04/11/2025 3:[address] [facility] RDW 14.7(H) 11.6 - 14.4 % 04/11/2025 3:[address] [facility] Platelets 215 140 - 375 K/CU MM 04/11/2025 3:[address] [facility] MPV 8.4(L) 9.4 - 12.4 fL 04/11/2025 3:[address] [facility] Blood ENTIRE RIGHT UPPER ARM / Unknown Venipuncture / Unknown 04/11/2025 3:26 AM EDT 04/11/2025 3:[address] [facility] - 04/11/2025 3:33 AM EDT Manual differentials can only be ordered once in a 24 hour time period. Please order CBC with Auto Diff if needed. Note: reference ranges were changed on 10/05/2023. us Murtaza Amato MD LAB BLOOD ORDERABLES Final Re sult Performing Organization Address [facility] Co de Phone Number [facility] [address] [phone] * (ABNORMAL) Glucose, Nova Meter (04/10/2025 11:28 PM EDT) [facility] Signature POC-GLUCOSE 132(H) 70 - 110 mg/dL 04/10/2025 11:[address] [facility] Comment: In the event of poor peripheral blood flow, venous or arterial blood should be used due to the potential of erroneous results. Protocols Followed Gang Vibrator Operator [id number] 04/10/2025 11:[address] [facility] Blood WHOLE BLOOD / Unknown 04/10/2025 11:28 PM EDT 04/10/2025 11:[address] [facility] - 04/10/2025 11:29 PM EDT Gang Vibrator Operator ID is - [id number] us Rebekah Lockhart MD POINT OF CARE TEST ORDERABLE S Final Result Performing Organization Address [facility]/ZIP Co de Phone Number [facility] [address] [place] [address], [facility] [phone] * (ABNORMAL) Glucose, Nova Meter (04/10/2025 6:15 PM EDT) POC-GLUCOSE 115(H) 70 - 110 mg/dL 04/10/2025 6:[address] [facility] Comment: In the event of poor peripheral blood flow, venous or arterial blood should be used due to the potential of erroneous results. Notified Nurse RBV Gang Vibrator Operator [id number] 04/10/2025 6:[address] [facility] Blood WHOLE BLOOD / Unknown 04/10/2025 6:15 PM EDT 04/10/2025 6:[address] [facility] - 04/10/2025 6:16 PM EDT Gang Vibrator Operator ID is - [id number] Rebekah Lockhart MD POINT OF CARE TEST ORDERABLE S Final Result Performing Organization Address [facility] Co de Phone Number [facility] [address] [phone] * (ABNORMAL) Glucose, Nova Meter (04/10/2025 12:58 PM EDT) POC-GLUCOSE 112(H) 70 - 110 mg/dL 04/10/2025 12:[address] [facility] Comment: In the event of poor peripheral blood flow, venous or arterial blood should be used due to the potential of erroneous results. Notified Nurse RBV Gang Vibrator Operator [id number] 04/10/2025 12:[address] [facility] Blood WHOLE BLOOD / Unknown 04/10/2025 12:58 PM EDT 04/10/2025 12:[address] [facility] - 04/10/2025 12:58 PM EDT Gang Vibrator Operator ID is - [id number] Rebekah Lockhart MD POINT OF CARE TEST ORDERABLE S Final Result Performing Organization Address [facility]/ZIP Co de Phone Number [facility] [address] [phone] * (ABNORMAL) Glucose, Nova Meter (04/10/2025 5:39 AM EDT) POC-GLUCOSE 128(H) 70 - 110 mg/dL 04/10/2025 5:[address] [facility] Comment: In the event of poor peripheral blood flow, venous or arterial blood should be used due to the potential of erroneous results. Protocols Followed Gang Vibrator Operator [id number] 04/10/2025 5:[address] [facility] Blood WHOLE BLOOD / Unknown 04/10/2025 5:39 AM EDT 04/10/2025 5:[address] [facility] - 04/10/2025 5:40 AM EDT Gang Vibrator Operator ID is - [id number] us Rebekah Lockhart MD POINT OF CARE TEST ORDERABLE S Final Result [facility] [address] [phone] * (ABNORMAL) Basic Metabolic Panel (04/10/2025 3:22 AM EDT) Sodium 137 136 - 145 meq/L 04/10/2025 4:[address] [facility] Potassium 4.5 3.4 - 5.1 meq/L 04/10/2025 4:[address] [facility] CO2 20(L) 22 - 29 meq/L 04/10/2025 4:[address] [facility] Chloride 108 98 - 112 meq/L 04/10/2025 4:[address] [facility] Glucose 146(H) 82 - 115 mg/dL 04/10/2025 4:[address] [facility] BUN 10.9 8.4 - 25.7 mg/dL 04/10/2025 4:[address] [facility] Creatinine 0.84 0.72 - 1.25 mg/dL 04/10/2025 4:[address] [facility] BUN/Creatinine 13 8 - 20 04/10/2025 4:[address] [facility] Calcium 8.1(L) 8.4 - 10.2 mg/dL 04/10/2025 4:[address] [facility] Anion Gap 14(H) 4 - 12 04/10/2025 4:[address] [facility] eGFR (mL/min/1.73m2) 96 >=60 mL/min/1.7 3m2 04/10/2025 4:[address] [facility] Osmolality Calc 275.8 mOsm/kg 4:[address] [facility] Blood Venipuncture / Unknown 04/10/2025 3:22 AM EDT 04/10/2025 3:32 AM EDT us Rebekah Lockhart MD LAB BLOOD ORDERABLES Final R esult Performing Organization Address [facility]/ZIP Co de Phone Number [facility] [address] [phone] * Magnesium (04/10/2025 3:22 AM EDT) Magnesium 1.7 1.6 - 2.6 mg/dL 04/10/2025 4:[address] [facility] Blood Venipuncture / Unknown 04/10/2025 3:22 AM EDT 04/10/2025 3:32 AM EDT us Isevy Long DO LAB BLOOD ORDERABLES Final Re sult [facility] [address] [phone] * (ABNORMAL) Comprehensive metabolic panel (04/10/2025 3:22 AM EDT) Sodium 137 136 - 145 meq/L 04/10/2025 4:[address] [facility] Potassium 4.5 3.4 - 5.1 meq/L 04/10/2025 4:[address] [facility] Chloride 108 98 - 112 meq/L 04/10/2025 4:[address] [facility] CO2 20(L) 22 - 29 meq/L 04/10/2025 4:09 AM [facility] Calcium 8.1(L) 8.4 - 10.2 mg/dL 04/10/2025 4:09 AM [facility] Glucose 146(H) 82 - 115 mg/dL 04/10/2025 4:09 AM [facility] BUN 10.9 8.4 - 25.7 mg/dL 04/10/2025 4:09 AM [facility] Creatinine 0.84 0.72 - 1.25 mg/dL 04/10/2025 4:09 AM [facility] BUN/Creatinine 13 8 - 20 04/10/2025 4:09 AM [facility] eGFR (mL/min/1.73m2) 96 >=60 mL/min/1. 73m2 04/10/2025 4:09 AM [facility] Albumin 2.8(L) 3.5 - 5.0 g/dL 04/10/2025 4:09 AM [facility] Alkaline Phosphatase 50 40 - 150 U/L 04/10/2025 4:09 AM [facility] ALT <7 <=45 U/L 04/10/2025 4:09 AM [facility] Comment: ALT2 reagent used for testing does not contain P5P supplementation and therefore may miss ALT elevations in patients with B6 deficiency. This population may be as high as 10% in the [place], with risk factors including malabsorption, drug interactions, and alcoholic hepatitis. AST 10(L) 11 - 34 U/L 04/10/2025 4:09 AM [facility] Comment: AST2 reagent used for testing does not contain P5P supplementation and therefore may miss AST elevations in patients with B6 deficiency. This population may be as high as 10% in the [place], with risk factors including malabsorption, drug interactions, and alcoholic hepatitis. Total Bilirubin 0.8 0.2 - 1.2 mg/dL 04/10/2025 4:09 AM [facility] Protein, Total 5.7(L) 6.4 - 8.3 g/dL 04/10/2025 4:09 AM [facility] Globulin 2.9 2.5 - 4.1 g/dL 04/10/2025 4:[address] [facility] Anion Gap 14(H) 4 - 12 04/10/2025 4:[address] [facility] A/G Ratio 1.0 0.7 - 1.9 04/10/2025 4:[address] [facility] Osmolality Calc 275.8 mOsm/kg 4:[address] [facility] Blood Venipuncture / Unknown 04/10/2025 3:22 AM EDT 04/10/2025 3:32 AM EDT us Ismaeel Mercedes DO LAB BLOOD ORDERABLES Final Re sult [facility] [address] [phone] * (ABNORMAL) CBC with automated diff (04/10/2025 3:22 AM EDT) WBC 16.0(H) 4.2 - 9.1 K/ L 04/10/2025 4:[address] [facility] RBC 3.39(L) 4.63 - 6.08 M/ L 04/10/2025 4:[address] [facility] Hemoglobin 9.3(L) 13.7 - 17.5 GM/DL 04/10/2025 4:[address] [facility] Hematocrit 29.0(L) 40.1 - 51.0 % 04/10/2025 4:[address] [facility] MCV 86 79 - 92 fL 04/10/2025 4:[address] [facility] MCH 27.4 25.7 - 32.2 pg 04/10/2025 4:[address] [facility] MCHC 32.1(L) 32.3 - 36.5 GM/DL 04/10/2025 4:[address] [facility] RDW 14.8(H) 11.6 - 14.4 % 04/10/2025 4:[address] [facility] Platelets 241 140 - 375 K/CU MM 04/10/2025 4:[address] [facility] MPV 8.7(L) 9.4 - 12.4 fL 04/10/2025 4:[address] [facility] Nucleated Red Blood Cell 0.0 0 - 0.2 % 04/10/2025 4:[address] [facility] % Neutros 82(H) 34 - 68 % 04/10/2025 4:[address] [facility] % Lymphs 6(L) 22 - 53 % 04/10/2025 4:[address] [facility] % Monos 11 5 - 12 % 04/10/2025 4:[address] [facility] % Eos 0(L) 1 - 7 % 04/10/2025 4:[address] [facility] % Baso 0 0 - 1 % 04/10/2025 4:[address] [facility] NRBC Absolute <0.01 0 - 0.012 K/ul 04/10/2025 4:[address] [facility] # Neutros 12.81(H) 1.78 - 5.38 K/ L 04/10/2025 4:[address] [facility] # Lymphs 0.98(L) 1.32 - 3.57 K/ L 04/10/2025 4:[address] [facility] # Monos 1.72(H) 0.30 - 0.82 K/ L 04/10/2025 4:[address] [facility] # Eos <0.03(L) 0.04 - 0.54 K/ L 04/10/2025 4:[address] [facility] # Baso <0.03 0.01 - 0.08 K/ L 04/10/2025 4:[address] [facility] Immature Granulocytes-Re lative 0.60(H) 0.01 - 0.43 % 04/10/2025 4:[address] [facility] # IG 0.10(H) 0.00 - 0.03 K/uL 04/10/2025 4:[address] [facility] Blood Venipuncture / Unknown 04/10/2025 3:22 AM EDT 04/10/2025 3:[address] [facility] - 04/10/2025 4:08 AM EDT When [...] Flag noted Atypical Lymph flag noted us Ismaeel Mercedes DO LAB BLOOD ORDERABLES Final Re sult [facility] [address] [phone] * XR chest AP portable (04/09/2025 8:43 [...] - 4.5 mg/dL 04/09/2025 8:[address] [facility] Blood Venipuncture / Unknown 04/09/2025 8:18 PM EDT 04/09/2025 8:24 PM EDT Wesley Goncalves APRN LAB BLOOD ORDERABLES Final Res ult Performing Organization Address [facility] Co de Phone Number [facility] [address] [phone] * Magnesium (04/09/2025 8:18 PM EDT) Magnesium 1.7 1.6 - 2.6 mg/dL 04/09/2025 8:[address] [facility] Blood Venipuncture / Unknown 04/09/2025 8:18 PM EDT 04/09/2025 8:24 PM EDT Wesley Goncalves APRN LAB BLOOD ORDERABLES Final Res ult Performing Organization Address [facility]/ZIP Co de Phone Number [facility] [address] [phone] * Lactic Acid with reflex (SJ) (04/09/2025 8:18 PM EDT) Lactic Acid Level (mmol/L) 1.1 0.5 - 2.2 mmol/L 04/09/2025 9:[address] [facility] Blood Venipuncture / Unknown 04/09/2025 8:18 PM EDT 04/09/2025 8:24 PM EDT us Wesley Goncalves [employer] LAB BLOOD ORDERABLES Final Res ult [facility] [address] [phone] * (ABNORMAL) Comprehensive metabolic panel (04/09/2025 8:18 PM EDT) Sodium 138 136 - 145 meq/L 04/09/2025 8:[address] [facility] Potassium 4.7 3.4 - 5.1 meq/L 04/09/2025 8:[address] [facility] Chloride 109 98 - 112 meq/L 04/09/2025 8:[address] [facility] CO2 18(L) 22 - 29 meq/L 04/09/2025 8:[address] [facility] Calcium 8.2(L) 8.4 - 10.2 mg/dL 04/09/2025 8:[address] [facility] Glucose 168(H) 82 - 115 mg/dL 04/09/2025 8:[address] [facility] BUN 10.6 8.4 - 25.7 mg/dL 04/09/2025 8:[address] [facility] Creatinine 1.00 0.72 - 1.25 mg/dL 04/09/2025 8:[address] [facility] BUN/Creatinine 11 8 - 20 04/09/2025 8:[address] [facility] eGFR (mL/min/1.73m2) 83 >=60 mL/min/1. 73m2 04/09/2025 8:[address] [facility] Albumin 3.1(L) 3.5 - 5.0 g/dL 04/09/2025 8:[address] [facility] Alkaline Phosphatase 55 40 - 150 U/L 04/09/2025 8:[address] [facility] ALT <7 <=45 U/L 04/09/2025 8:[address] [facility] Comment: ALT2 reagent used for testing does not contain P5P supplementation and therefore may miss ALT elevations in patients with B6 deficiency. This population may be as high as 10% in the [place], with risk factors including malabsorption, drug interactions, and alcoholic hepatitis. AST 10(L) 11 - 34 U/L 04/09/2025 8:[address] [facility] Comment: AST2 reagent used for testing does not contain P5P supplementation and therefore may miss AST elevations in patients with B6 deficiency. This population may be as high as 10% in the [place], with risk factors including malabsorption, drug interactions, and alcoholic hepatitis. Total Bilirubin 0.7 0.2 - 1.2 mg/dL 04/09/2025 8:[address] [facility] Protein, Total 6.1(L) 6.4 - 8.3 g/dL 04/09/2025 8:[address] [facility] Globulin 3.0 2.5 - 4.1 g/dL 04/09/2025 8:[address] [facility] Anion Gap 16(H) 4 - 12 04/09/2025 8:[address] [facility] A/G Ratio 1.0 0.7 - 1.9 04/09/2025 8:[address] [facility] Osmolality Calc 278.8 mOsm/kg 8:[address] [facility] Blood Venipuncture / Unknown 04/09/2025 8:18 PM EDT 04/09/2025 8:24 PM EDT us Wesley Goncalves APRN LAB BLOOD ORDERABLES Final Res ult [facility] [address] [phone] * (ABNORMAL) CBC with automated diff (04/09/2025 8:18 PM EDT) WBC 22.1(H) 4.2 - 9.1 K/ L 04/09/2025 8:[address] [facility] RBC 3.78(L) 4.63 - 6.08 M/ L 04/09/2025 8:[address] [facility] Hemoglobin 10.5(L) 13.7 - 17.5 GM/DL 04/09/2025 8:[address] [facility] Hematocrit 31.8(L) 40.1 - 51.0 % 04/09/2025 8:[address] [facility] MCV 84 79 - 92 fL 04/09/2025 8:[address] [facility] MCH 27.8 25.7 - 32.2 pg 04/09/2025 8:[address] [facility] MCHC 33.0 32.3 - 36.5 GM/DL 04/09/2025 8:[address] [facility] RDW 14.7(H) 11.6 - 14.4 % 04/09/2025 8:[address] [facility] Platelets 275 140 - 375 K/CU MM 04/09/2025 8:[address] [facility] MPV 8.3(L) 9.4 - 12.4 fL 04/09/2025 8:[address] [facility] % Neutros 89(H) 34 - 68 % 04/09/2025 8:[address] [facility] % Lymphs 3(L) 22 - 53 % 04/09/2025 8:[address] [facility] % Monos 8 5 - 12 % 04/09/2025 8:[address] [facility] % Eos 0(L) 1 - 7 % 04/09/2025 8:[address] [facility] % Baso 0 0 - 1 % 04/09/2025 8:[address] [facility] NRBC Absolute <0.01 0 - 0.012 K/ul 04/09/2025 8:[address] [facility] # Neutros 19.67(H) 1.78 - 5.38 K/ L 04/09/2025 8:[address] [facility] # Lymphs 0.58(L) 1.32 - 3.57 K/ L 04/09/2025 8:[address] [facility] # Monos 1.75(H) 0.30 - 0.82 K/ L 04/09/2025 8:[address] [facility] # Eos <0.03(L) 0.04 - 0.54 K/ L 04/09/2025 8:[address] [facility] # Baso 0.03 0.01 - 0.08 K/ L 04/09/2025 8:[address] [facility] Immature Granulocytes-Re lative 0.50(H) 0.01 - 0.43 % 04/09/2025 8:[address] [facility] # IG 0.11(H) 0.00 - 0.03 K/uL 04/09/2025 8:[address] [facility] Blood Venipuncture / Unknown 04/09/2025 8:18 PM EDT 04/09/2025 8:[address] [facility] - 04/09/2025 8:26 PM EDT When [...] APRN LAB BLOOD ORDERABLES Final Res ult [facility] [address] [phone] * (ABNORMAL) CALCIUM Ionized (04/09/2025 8:18 PM EDT) Calcium Ionized 1.10(L) 1.12 - 1.32 mmol/L 04/09/2025 8:[address] [facility] Blood Venipuncture / Unknown 04/09/2025 8:18 PM EDT 04/09/2025 8:24 PM EDT us Wesley Goncalves APRN LAB BLOOD ORDERABLES Final Res ult Performing Organization Address [facility]/ZIP Co de Phone Number [facility] [address] [place] [address], [facility] [phone] * (ABNORMAL) Glucose, Nova Meter (04/09/2025 11:26 AM EDT) Pathologist [facility] POC-GLUCOSE 161(H) 70 - 110 mg/dL 04/09/2025 11:[address] [facility] Comment: In the event of poor peripheral blood flow, venous or arterial blood should be used due to the potential of erroneous results. Notified Nurse RBV Gang Vibrator Operator [phone] 04/09/2025 11:[address] [facility] Blood WHOLE BLOOD / Unknown 04/09/2025 11:26 AM EDT 04/09/2025 11:[address] [facility] - 04/09/2025 11:28 AM EDT Gang Vibrator Operator ID is - [id number] Rebekah Lockhart MD POINT OF CARE TEST ORDERABLE S Final Result Performing Organization Address [facility]/ZIP Co de Phone Number [facility] [address] [place] [address], [facility] [phone] * Tissue Exam (04/09/2025 9:50 AM EDT) Pathologist [facility] AP RESULT See Note: PATHOLOGY AND CYTOLOGY [...] anvil or 2 end designated anastomotic donuts. Stem Roller sections are submitted as follows: A1: Proximal [...] sections are submitted. HDM See other report ([id number]) Tissue COLON STRUCTURE / Unknown 04/09/2025 9:50 AM EDT Tissue specimen (specimen) MESH / Unknown 04/09/2025 10:49 AM EDT us Rebekah Lockhart MD PATHOLOGY/CYTOLOGY ORDERABLE S Final Result [facility] [address] [place] [address] * Type and Screen (04/09/2025 7:00 AM EDT) ABO/Rh B Positive 04/09/2025 6:07 AM EDT [facility] ([place]) Antibody Screen Negative 04/09/2025 6:07 AM EDT [facility] [place] HISTCHK HIST CHECK PERFORMED 04/09/2025 6:07 AM EDT [facility] [place] Blood Venipuncture / Unknown 04/09/2025 7:00 AM EDT 04/09/2025 7:11 AM EDT us Todd Okeefe MD [facility] TEST ORDERA BLES Final Result [facility] ([place]) [address] [place] [address], [facility] [phone] * POC-Potassium (04/09/2025 6:49 AM EDT) POC Potassium 4.3 3.5 - 4.9 mmol/L 04/09/2025 6:[address] [facility] Blood 04/09/2025 6:49 AM EDT 04/09/2025 6:[address] [facility] - 04/09/2025 6:57 AM EDT Gang Vibrator Operator ID is - [id number] us Rebekah Lockhart MD POINT OF CARE TEST ORDERABLE S Final Result [facility] [address] [place] [address], [facility] [phone] * Glucose, iSTAT Meter (04/09/2025 6:49 AM EDT) POC-GLUCOSE 101 70 - 105 mg/dL 04/09/2025 6:[address] [facility] Blood 04/09/2025 6:49 AM EDT 04/09/2025 6:[address] [facility] - 04/09/2025 6:57 AM EDT Gang Vibrator Operator ID is - [id number] us Rebekah Lockhart MD POINT OF CARE TEST ORDERABLE S Final Result [facility] [address] [place] [id number], [facility] [phone] * EKG-SCANNED (04/09/2025) Narrative 04/09/2025 Ordered by an unspecified provider. 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 documented in this encounter Admitting Diagnoses Diagnosis Diverticulitis of colon with perforation Diverticulitis of colon (without mention of hemorrhage) documented in this encounter Administered Medications Inactive Administered Medications - up to 3 most recent administrations Medication Order MAR Action Action Date Dose Rate Site cefTRIAXone (ROCEPHIN) 2 g in sodium chloride [...] PM EDT 40 mg Ab dominal Tissue glucagon injection 1 mg 1 mg Every [...] after blood sugar greater than 70 mg/dL hydrogen peroxide external solution 3% topical, 2 times daily, First dose on Wed04/12/25 at 0900, Irrigate pigtail catheter with 10mL solution of half hydrogen peroxide + half normal saline Given 04/15/2025 8:22 PM EDT Given 04/15/2025 9:51 AM EDT Given 04/14/2025 8:27 PM EDT HYDROmorphone (DILAUDID) injection 0.4 mg 0.4 mg Every 4 hours PRN, intravenous, For breakthrough pain, Starting on 04/14/25 at 1608 Given 04/15/2025 8:12 PM EDT 0.4 mg lactated Ringer's infusion 75 mL/hr Continuous, intravenous, Starting on Wed04/09/25 at 1700, Phase II/On Unit New Bag 04/15/2025 8:12 PM EDT 75 mL/hr 75 mL/hr Rate/Dose Verify 04/15/2025 6:00 PM EDT 75 mL/hr 75 mL/h r Rate/Dose Verify 04/15/2025 5:00 PM EDT 75 mL/hr 75 mL/h r metroNIDAZOLE (FLAGYL) IVPB 500 mg in sodium [...] 5:26 PM EDT 500 mg 100 mL/hr morphine injection 4 mg 4 mg Every [...] Given 04/13/2025 9:02 AM EDT 40 mg QUEtiapine (SEROquel) tablet 200 mg 200 [...] Sandy 04/12/25 at 1825, For 1 dose tiZANidine (ZANAFLEX) [...] 2011 (Given - Provider: Ronny Long, RN) cefTRIAXone (ROCEPHIN) 2 g in sodium chloride 0.9 % (NS) 50 mL SHANELLE IVPB 2 g Every 24 hours, intravenous, at 100 mL/hr, First dose on Wed04/10/25 at 0900, Please choose an indication: Intra-abdominal Infection 0823 (IVPB Started - Provider: Jodie Alcaraz RN)1016 (IVPB Stopped - Provider: Jodie Alcaraz RN) 0950 (IVPB Started - Provider: Suri Alcaraz, DUSTIN)1030 (IVPB Stopped - Provider: Suri Alcaraz, DUSTIN) 0837 (IVPB Started - Provider: Ruby Ponce, [...] dose, Intra-op 1411 (Given - Provider: Suri Alcaraz, DUSTIN) enoxaparin (LOVENOX) syringe 40 mg 40 mg Every 24 hours, subcutaneous, First dose on Wed04/10/25 at 1700, Do not administer within 12 hours of epidural or lumbar puncture. Look-Alike/Sound-Ali ke Alert 0291 (Given - Provider: Jodie Alcaraz, RN) 1635 (Given - Provider: Suri Alcaraz, RN) hydrogen peroxide external solution 3% topical, 2 times daily, First dose on Wed04/12/25 at 0900, Irrigate pigtail catheter with 10mL solution of half hydrogen peroxide + half normal saline 1041 (Given - Provider: Jodie Alcaraz, RN)2026 (Given - Provider: Ramos Alves RN) 0951 (Given - Provider: Suri Alcaraz, DUSTIN)2021 (Given - Provider: Ronny Long, RN) 09 (Not Given - Provider: Ruby Ponce RN - Reason: Patient/family refused) metoprolol succinate (TOPROL-XL) [...] (Automatically Held) 2100 (Not Given - Provider: Ronyn Long, RN - Reason: Per MD Order) 1127 (Unheld [...] Alves RN)0822 (IVPB Stopped - Provider: Jodie Alcaraz, DUSTIN)1330 (IVPB Started - Provider: Jodie Alcaraz, DUSTIN)1433 (IVPB Stopped - Provider: Myranda Bowers RN)1820 (IVPB Started - Provider: Jodie Alcaraz RN)202 (IVPB Stopped - Provider: Ramos Alves RN) 0016 (IVPB Started - Provider: Ramos Alves RN)0202 (IVPB Stopped - Provider: Ramos Alves RN)0603 (IVPB Started - Provider: Ramos Alves RN)0700 (IVPB Stopped - Provider: Suri Alcaraz RN)1300 (IVPB Started - Provider: Suri Alcaraz RN)1400 (IVPB Stopped - Provider: Suri Alcaraz RN)1726 (IVPB Started - Provider: Suri Alcaraz RN)1933 (IVPB Stopped - Provider: Ronny Long RN)2346 (IVPB Started - Provider: Ronny Long RN) 0039 (IVPB Stopped - Provider: Ronny Long RN)0614 (IVPB Started - Provider: Ronny Long RN)0714 (IVPB Stopped - Provider: Ruby Ponce, RN) pantoprazole (PROTONIX) injection 40 mg 40 mg Daily, intravenous, First dose on Wed04/09/25 at 1700, * DILUTE IN 10 ML NS AND GIVE IV SLOWLY OVER 3 MINUTES *, Phase II/On Unit 0823 (Given - Provider: Jodie Alcaraz RN) 09 (Given - Provider: Suri Alcaraz RN) 09 (Not Given - Provider: Ruby Ponce RN - Reason: Patient/family refused) potassium chloride (KLOR-CON) ER tablet 40 mEq (COMPLETED) 40 mEq Once, oral, On Wed04/15/25 at 0700, For 1 dose, DO NOT CRUSH THIS DOSAGE FORM. 0639 (Given - Provider: Ramos Alves RN) QUEtiapine (SEROquel) tablet 200 mg 200 mg Every Night, oral, First dose on Wed04/09/25 at 2100 2000 (Given - Provider: Ramos Alves RN) 2011 (Given - Provider: Ronny Long RN) tiZANidine (ZANAFLEX) tablet 4 mg 4 mg 3 times daily, oral, First dose on Wed04/09/25 at 1700 0823 (Given - Provider: Jodie Alcaraz RN)1441 (Given - Provider: Jodie Alcaraz RN)2000 (Given - Provider: Ramos Alves RN) 09 (Given - Provider: Suri Alcaraz RN)1441 (Given - Provider: Suri Alcaraz RN)2011 (Given - Provider: Ronny Long RN) 0923 (Not Given - Provider: Ruby Ponce RN - Reason: Patient/family refused) Continuous Medication Order 04/14/2025 04/15/2025 04/16/2025 lactated Ringer's infusion 75 mL/hr Continuous, intravenous, Starting on Wed04/09/25 at 1700, Phase II/On Unit 0659 (Rate/Dose Verify - Provider: Suri Alcaraz RN)0700 (Rate/Dose Verify - Provider: Suri Alcaraz RN)0800 (Rate/Dose Verify - Provider: Suri Alcarza RN)0900 (Rate/Dose Verify - Provider: Suri Alcaraz [...] 1608 2011 (Given - Provider: Ronny Long, DUSTIN) iopamidoL (ISOVUE-370) 370 mg iodine /mL (76 %) injection 75 mL (COMPLETED) 75 mL IMG once as needed, intravenous, contrast, Starting on Wed04/15/25 at 1338, For 1 dose, Intra-op 1526 (Given - Provider: Triny Andrade) morphine injection 4 mg 4 mg Every 4 hours PRN, intravenous, severe pain (7-10), Starting on Wed04/09/25 at 1618, Phase II/On Unit 0823 (Given - Provider: Jodie Alcaraz RN)1441 (Given - Provider: Jodie Alcaraz RN)202 (Given - Provider: Ramos Alves RN) 163 (Given - Provider: Suri Alcaraz RN) 042 (Given - Provider: Ronny Long RN) nicotine (NICODERM CQ) 21 mg/24 hr patch 1 patch 1 patch Daily as needed, transdermal, Administer over 24 Hours, other, tobacco use, Starting on 04/09/25 at 1620 ondansetron (ZOFRAN) injection 4 mg(Linked [...] II/On Unit 0443 (Given - Provider: Ramos Alves RN)1041 (Given - Provider: Jodie Alcaraz RN) oxyCODONE (ROXICODONE) immediate release tablet 5 mg 5 mg Every 4 hours PRN, oral, moderate pain (4-6), Starting on 04/14/25 at 1609, Look-alike/Sound-alike medication, Phase II/On Unit 194 (Given - Provider: Ramos Alves RN) 0331 (Given - Provider: Ramos Alves RN)1728 (Given - Provider: Suri Alcaraz RN)2246 (Given - Provider: Ronny Long RN) sodium [...]
--- OUTSIDE RECORDS SUMMARY | 2025-04-09 07:46 | XMS_ITS | Encounter Summary ---
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 Name Role Phone Unavailable Primary Care Provider Unavailabl e Reason for Visit * Auth/Cert (Routine) Specialty Diagnoses / Procedures Referred By Contac t Referred To Contact Diagnoses Vesicointestinal fistula SEE PRIMARY DX Procedures NE COLECTOMY PRTL W/COLOPROCTOSTOMY NE CYSTOURETHROSCOPY W/URETERAL CATHETERIZATION RESECTION, RECTUM AND SIGMOID COLON, LOW ANTERIOR, LAPAROSCOPIC, WITH CONVERSION TO OPEN PROCEDURE IF INDICATED CYSTOSCOPY, WITH RETROGRADE PYELOGRAM AND URETEROSCOPY [facility] Operating Room [address] [place] [address] Phone: tel: fax: [facility] Operating Room [address] [place] [address] Phone: tel: fax: Referral ID Status Reason Start Date Expiration Date Visits Re quested Visits Authorized [id number] 1 1 Encounter Details Date Type Department Care Team (Late st Contact Info) Description 04/09/2025 7:46 AM EDT Anesthesia Event [facility] Operating Room [address] [place] [address] Myranda Angeles, KAYODE [address] [place] [id number] Myranda Manzano Anesthesia Record Procedure Summary Procedure Name Responsible Anesthesiologist Anesthesia Start Time Anesthesia Stop Time (OPEN LOW ANTERIOR RESECTION WITH TAKEDOWN OF COLOVESICAL FISTULA DIVERTING LOOP ILEOSTOMY VENTRAL HERNIA REPAIR AND CYSTOSCOPY AND STENTS) EXPLANTS OF MESH, REDO LAR,EX LAP LYSIS OF ADHESIONS (Abdomen) Myranda Gonzáles Karthik, DATE PITTER 04/09/25 0746 04/09/25 1130 Events Date Time Event Comment 04/09/2025 0746 An Start Patient identif ied and chart reviewed. 0800 Pre-Induction Eval FDA anest hesia machine pre-use checkout completed. Patient status reassessed prior to start of anesthesia care. 0803 An Start Data Anesthesia mac denis and monitors checked. 0804 An Induction 0812 An Intubation 0818 Anesthesia Ready 0836 Quick Note Time out 1115 An Extubation 1121 an stop data 1127 Handoff to Receiving I compl eted my handoff to the receiving clinician during which we: 1. Identified the patient. 2. Identified the responsible provider. 3. Reviewed the pertinent medical history. 4. Discussed the surgical course. 5. Reviewed intra-op anesthesia management and issues during anesthesia. 6. Set expectations for post-procedure period. 7. Allowed opportunity for questions and acknowledgement of understanding. 1130 An Stop Meds Name Total fentaNYL (SUBLIMAZE) injection 100 mcg midazolam (VERSED) injection 1 mg/ mL 1 mg propofol (DIPRIVAN) injection 10 mg/mL b olus 120 mg ketamine injection 50 mg/5 mL in 0.9% so dium chloride syringe 30 mg dexmedetomidine (PRECEDEX) injection 100 mcg/mL 30 mcg lidocaine (PF) injection 10 mg/mL (1%) 8 mL vecuronium (NORCURON) injection 12 mg ertapenem (INVanz) 1 g in sodium chlorid e 0.9 % (NS) 50 mL SHANELLE IVPB 1 g hydromorphone (DILAUDID) injection 2 mg/ mL 1 mg labetalol (NORMODYNE, TRANDATE) injectio n 5 mg/mL 2.5 mg methocarbamoL (ROBAXIN) injection 500 mg sugammadex (BRIDION) injection 200 mg lactated Ringer's infusion 900 mL * Agents Name O2 N2O Air SEVOFLURANE * Blood No blood administrations on file. Lines, Drains, and Airways Type Details Placement Removal Wound 04/09/25; 0958; Inci benito; Abdomen; Not applicable; seprafilm 04/09/25 0958 by Aditya Vazquez RN Ostomy (Stool) RLQ 04/09/25 0958 by NG/OG Tube Placement Date: 12/29; Tube Type: Nasogastric; Removal Date: 04/12/25 04/09/25 0000 by Michael Santos RN 04/12/25 0000 by Suri Alcaraz RN Peripheral IV Placement Date: 12/29; Placement Time: 0647; Size: 20 G; Orientation: Left, Posterior; Location: Hand; Site Prep: Chlorhexidine ; Local Anesthetic: None; Inserted by: Graham CHAN; Insertion attempts: 1; Securement Method: Taped; Removal Date: 04/13/25; Removal Time: 0704/09/25 0647 by Graham Garces RN 04/13/25 07 by Ramos Alves RN Arterial Line Placement Date: 12/29; Placement Time: 08 (created via procedure documentation); Orientation: Left; Location: Radial; Removal Date: 04/10/25; Removal Time: 1100 04/09/25 08 by Myranda Angeles CRNA 04/10/25 1100 by Tiffany Thomas Urethral Catheter Placement Date: 12/29; Placement Time: 08; Inserted by: dr dunn; Type: Latex; Size: 16 Fr.; Balloon Size: 10 mL; Urine Returned: Yes; Removal Date: 04/09/25; Removal Time: 1105; Removal Reason: Per order 04/09/25 0805 by Rafaela Vee RN 04/09/25 1105 by Aditya Vazquez RN ETT Placement Date 04/09; Placement Time 08 (created via procedure documentation); Airway Size 8; Airway Cuffed Yes; Removal Date 04/09/25; Removal Time 1115 04/09/25 0812 by Myranda Phillips Al Bayati 04/09/25 1115 by Myranda Angeles CRNA Closed/Suction Drain 04/09/25; 09; dr abdi; 1; Medial; LLQ; Bulb; 19 Fr.; removed prior to shift 04/09/25 09 by Aditya Vazquez RN 04/30/25 1310 by Merly Troncoso Urethral Catheter Placement Date: 12/29; Placement Time: 1105; Inserted by: annette; Type: Non-latex; Size: 16 Fr.; Balloon Size: 5 mL; Urine Returned: Yes; Removal Date: 04/13/25; Removal Time: 1800 04/09/25 1105 by Aditya Vazquez RN 04/13/25 1800 by Suri Alcaraz RN documented in this encounter Social History Tobacco Use Types Packs/Day Years [...] your living situation today? I have a [facility] place to live 04/09/2025 Think about the [...] Do you speak a language other than [place] at [facility]? No 04/09/2025 Do you want help with [...] on file documented as of this encounter OR Notes * Anesthesia Postprocedure Evaluation - Myranda Angeles CRNA - 04/09/2025 11:30 AM EDT Patient: Levar Rand Procedure Summary Date: 04/09/25 Room / Location: [facility] OR OPERATING ROOM Anesthesia Start: 07 Anesthesia Stop: Procedures: (OPEN LOW ANTERIOR RESECTION WITH TAKEDOWN OF COLOVESICAL FISTULA DIVERTING LOOP ILEOSTOMY VENTRAL HERNIA REPAIR AND CYSTOSCOPY AND STENTS) EXPLANTS OF MESH, REDO LAR,EX LAP LYSIS OF ADHESIONS (Abdomen) CYSTOSCOPY, WITH URETERAL STENT INSERTION (Bilateral: Ureter) Diagnosis: Vesicointestinal fistula (SEE PRIMARY DX) Surgeons: Chun Lockhart MD Responsible Provider: Myranda Angeles CRNA Anesthesia Type: general ASA Status: 4 Anesthesia Type: general Vitals Value Taken Time BP 133/87 04/09/25 1127 Temp 98.2 04/09/25 1130 Pulse 83 04/09/25 1130 Resp 20 04/09/25 1130 SpO2 100 % 04/09/25 1130 Vitals shown include unfiled device data. Wt 80.5 kg (177 lb 6.1 oz) BMI 26.19 kg/m?? Anesthesia Post Evaluation Patient location during evaluation: PACU Patient participation: complete - patient participated Level of consciousness: sleepy but conscious Pain score: 0 Pain management: adequate Multimodal analgesia pain management approach Airway patency: patent Two or more strategies used to mitigate risk of obstructive sleep apnea Cardiovascular status: acceptable and hemodynamically stable Respiratory status: acceptable, face mask and nonlabored ventilation Hydration status: acceptable Color: [place] Activity: Moves 4 extremities Inotropes/Vasopressors: N/A No notable events documented. Myranda Angeles CRNA 04/09/2025 11:30 AM EDT * Anesthesia Procedure Notes - Myranda Angeles CRNA - 04/09/2025 9:23 AM EDT Associated Order(s): Intubation Intubation Authorized by: Myranda Angeles CRNA Performed by: Myranda Manzano Date/Time: 04/09/2025 8:12 AM Urgency: elective Indications and Patient Condition Indications for airway management: anesthesia and airway protection Spontaneous Ventilation: absent Sedation level: general anesthesia Preoxygenated: yes Patient position: sniffing no Mask difficulty assessment: 2 - vent by mask + OA or adjuvant +/- NMBA Planned trial extubation: yes Final Airway Details Final airway type: endotracheal airway Endotracheal tube type: ETT Cuffed: yes Successful intubation technique: direct laryngoscopy Facilitating devices/methods: intubating stylet Endotracheal tube insertion site: oral Blade: Kathy Blade size: #4 ETT size (mm): 8.0 Placement verified by: chest auscultation and capnometry Cuff volume (mL): 8 Measured from: lips ETT to lips (cm): 22 Number of attempts at approach: 1 Number of other approaches attempted: 0 Additional Comments Atraumatic intubation, soft tissue same as preop assessment. * Anesthesia Procedure Notes - Myranda Angeles CRNA - 04/09/2025 8:57 AM EDT Associated Order(s): Arterial Line Arterial Line Authorized by: Todd Okeefe MD Performed by: Myranda Angeles CRNA Date/Time: 04/09/2025 8:01 AM Patient location: OR Indication: continuous blood pressure monitoring Procedure Detail Catheter size: 20 G Catheter length: 1 and 3/4 inch Catheter type: Angiocath Seldinger technique used. Site: left radial artery Securement method: suture Events: patient tolerated procedure well with no complications * Anesthesia Procedure Notes - Todd Okeefe MD - 04/09/2025 7:25 AM EDT Associated Order(s): Peripheral Nerve Block Peripheral Nerve Block Authorized by: Todd Okeefe MD Performed by: Todd Okeefe MD Patient location during procedure: holding area Start time: 04/09/2025 7:20 AM End time: 04/09/2025 7:24 AM Reason for block: at surgeon's request and post-op pain management Preanesthetic Checklist Completed: patient identified, IV checked, site marked, risks and benefits discussed, surgical consent, monitors and equipment checked, pre-op evaluation and timeout performed Peripheral Block Patient position: supine Prep: ChloraPrep Patient monitoring: heart rate, pvc monitor and continuous pulse ox Block type: TAP Laterality: bilateral Injection technique: single-shot Guidance: ultrasound guided Needle Needle type: short-bevel Needle gauge: 21 G Needle length: 10 cm Needle localization: ultrasound guidance Needle insertion depth: 6 cm Assessment Injection assessment: negative aspiration for heme, no paresthesia on injection and incremental injection Paresthesia pain: none Heart rate change: no Slow fractionated injection: yes Additional Notes Solution with 28.5 cc Bupivacaine 0.25% + Clonidien 50 mcg + Dexamethasone 4 mg + Epi 1:200,000 on each side * Anesthesia Preprocedure Evaluation - Henrik Santos MD - 03/12/2025 2:43 PM EDT ANESTHESIA PREOPERATIVE EVALUATION Patient: Levar Rand Date/Time: 03/19/25729 Procedure: (OPEN LOW ANTERIOR RESECTION WITH TAKEDOWN OF COLOVESICULAR FISUTLA, POSSIBLE ILEOSTOMY,VENTRAL HERNIA REPAIR, CYSTOSCOPY AND TEMPORARY URETERAL STENT PLACEMENT) Location: [facility] OR [address] [place] [address] OPERATING ROOM Surgeons: Chun Lockhart MD Vitals: 03/12/25 1432 BP: 117/74 Pulse: 83 Resp: 18 Temp: 97.8 ??F (36.6 ??C) SpO2: 97% Weight: 79.8 kg (176 lb) Height: 1.753 m (5' 9 ) Body mass index is 25.99 kg/m??. No Known Allergies Current Outpatient Medications Medication Instructions aspirin 325 mg, oral, Every Night furosemide (LASIX) 20 mg, Once as needed Lipitor 40 mg, oral, Every Night metFORMIN (GLUCOPHAGE) 500 mg, oral, Every Night, Look-alike/Sound-alike medication metoprolol succinate (TOPROL-XL) 50 mg, oral, Every Night QUEtiapine (SEROQUEL) 200 mg, 2 times daily spironolactone (ALDACTONE) 25 mg, oral, Every Night tiZANidine (ZANAFLEX) 4 mg, Every 8 hours PRN valsartan (DIOVAN) 40 mg, 2 times daily Relevant Problems CARDIOVASCULAR (+) Coronary artery disease involving autologous artery coronary bypass graft ENDOCRINE (+) Diabetes mellitus, type 2 (HCC) RESPIRATORY SYSTEM (+) Smoker Other (+) Hyperlipidemia Multiple cardiac stents prior to CABG 2013. Cath 12/2024 shows occluded HATHAWAY to LAD, but collateral flow to LAD. Echo 02/2025 shows EF 30-35%. Per patient, there are plans for placement of AICD sometime post recovery from this operation. Patient has been cleared by his cardiology PA. Problem List as of 03/12/2025 None Past Surgical History: Procedure Laterality Date COLON SURGERY patient stated he had colon surgery (colostomy with reversal) CORONARY ANGIOPLASTY WITH STENT PLACEMENT CORONARY ARTERY BYPASS GRAFT HAND SURGERY Right HERNIA REPAIR Social History Tobacco Use Smoking status: Every Day Types: Cigarettes Smokeless tobacco: Never Substance Use Topics Alcohol use: Never Drug use: Yes Types: Marijuana Comment: weekly Chemistry No results found for: NA , K , CL , CO2 , BUN , CREATININE , GLU No results found for: CALCIUM , ALKPHOS , AST , ALT , BILITOT No results found for: WBC , HGB , HCT , MCV , PLT No data recorded Physical Exam Airway Mallampati: I TM distance: >3 FB Neck ROM: full Cardiovascular Rhythm: regular Dental (+) upper dentures, lower dentures Pulmonary Breath sounds clear to auscultation Abdominal Other findings: Full cardiac reports to be sent. Anesthesia Plan ASA 4 general (B TAP A-line) The patient is a current smoker. Patient was previously instructed to abstain from smoking on day of procedure. intravenous induction Postoperative administration of opioids is intended. Trial extubation is planned. Anesthetic plan and risks discussed with patient. Use of blood products discussed with patient who. Plan discussed with DATE PITTER. documented in this encounter Plan of Treatment Not on file documented as of this encounter Procedures Procedure Name Priority Date/Time Associated Diagnosis Comments ANESTHESIA INTUBATION Routine 04/09/2025 8:12 AM EDT HC ARTERIAL CATH SAMP/MNTR Routine 04/09/2025 8:01 AM EDT HC TAP BLOCK BILATERAL (BLK RM) Routine 04/09/2025 7:20 AM EDT documented in this encounter Results * AN SINGLE LUMEN INTUBATION (04/09/2025 8:12 AM EDT) Narrative Myranda Angeles CRNA - 04/09/2025 8:12 AM EDT Myranda Angeles CRNA 04/09/2025 9:27 AM Intubation Authorized by: Myranda Angeles CRNA Performed by: Myranda Manzano Date/Time: 04/09/2025 8:12 AM Urgency: elective Indications and Patient Condition Indications for airway management: anesthesia and airway protection Spontaneous Ventilation: absent Sedation level: general anesthesia Preoxygenated: yes Patient position: sniffing no Mask difficulty assessment: 2 - vent by mask + OA or adjuvant +/- NMBA Planned trial extubation: yes Final Airway Details Final airway type: endotracheal airway Endotracheal tube type: ETT Cuffed: yes Successful intubation technique: direct laryngoscopy Facilitating devices/methods: intubating stylet Endotracheal tube insertion site: oral Blade: Kathy Blade size: #4 ETT size (mm): 8.0 Placement verified by: chest auscultation and capnometry Cuff volume (mL): 8 Measured from: lips ETT to lips (cm): 22 Number of attempts at approach: 1 Number of other approaches attempted: 0 Additional Comments Atraumatic intubation, soft tissue same as preop assessment. us Myranda Angeles CRNA ANESTHESIA ORDERABLES Final Result * HC ARTERIAL CATH SAMP/MNTR (04/09/2025 8:01 AM EDT) Myranda Fan CRNA - 04/09/2025 8:01 AM EDT Myranda Angeles CRNA 04/09/2025 9:28 AM Arterial Line Authorized by: Todd Okeefe MD Performed by: Myranda Angeles CRNA Date/Time: 04/09/2025 8:01 AM Patient location: OR Indication: continuous blood pressure monitoring Procedure Detail Catheter size: 20 G Catheter length: 1 and 3/4 inch Catheter type: Angiocath Seldinger technique used. Site: left radial artery Securement method: suture Events: patient tolerated procedure well with no complications us Todd Okeefe MD ANESTHESIA ORDERABLES Edit ed Result - Final * HC TAP BLOCK BILATERAL (BLK RM) (04/09/2025 7:20 AM EDT) Todd Todd MD - 04/09/2025 7:20 AM EDT Todd Okeefe MD 04/09/2025 7:25 AM Peripheral Nerve Block Authorized by: Todd Okeefe MD Performed by: Todd Okeefe MD Patient location during procedure: holding area Start time: 04/09/2025 7:20 AM End time: 04/09/2025 7:24 AM Reason for block: at surgeon's request and post-op pain management Preanesthetic Checklist Completed: patient identified, IV checked, site marked, risks and benefits discussed, surgical consent, monitors and equipment checked, pre-op evaluation and timeout performed Peripheral Block Patient position: supine Prep: ChloraPrep Patient monitoring: heart rate, pvc monitor and continuous pulse ox Block type: TAP Laterality: bilateral Injection technique: single-shot Guidance: ultrasound guided Needle Needle type: short-bevel Needle gauge: 21 G Needle length: 10 cm Needle localization: ultrasound guidance Needle insertion depth: 6 cm Assessment Injection assessment: negative aspiration for heme, no paresthesia on injection and incremental injection Paresthesia pain: none Heart rate change: no Slow fractionated injection: yes Additional Notes Solution with 28.5 cc Bupivacaine 0.25% + Clonidien 50 mcg + Dexamethasone 4 mg + Epi 1:200,000 on each side Todd Okeefe MD ANESTHESIA ORDERABLES Berkley david Result documented in this encounter Visit Diagnoses Not on filedocumented in this encounter Administered Medications Inactive Administered Medications - up to 3 most recent administrations Medication Order MAR Action Action Date Dose Rate Site dexmedeTOMIDine (PRECEDEX) injection As needed, intravenous, Starting on Wed04/09/25 at 0842, Anesthesia Intra-op Given 04/09/2025 10:56 AM EDT 5 mcg Given 04/09/2025 10:35 AM EDT 5 mcg Given 04/09/2025 9:54 AM EDT 5 mcg ertapenem (INVanz) 1 g in sodium chloride 0.9 % (NS) 50 mL SHANELLE IVPB 1 g Once, intravenous, at 100 mL/hr, On Wed04/09/25 at 0630, For 1 dose, Pre-op, Ertapenem is a RESTRICTED ANTIMICROBIAL; Select the criteria for why Ertapenem is required: A one-time dose prior to discharge within 24 hours for outpatient IV antibiotic therapy., Please choose an indication: Surgical Prophylaxis New Bag 04/09/2025 8:21 AM EDT 1 g fentaNYL PF (SUBLIMAZE) injection As needed, intravenous, Starting on Wed04/09/25 at 0752, Anesthesia Intra-op Given 04/09/2025 8:47 AM EDT 25 mcg Given 04/09/2025 8:42 AM EDT 25 mcg Given 04/09/2025 8:04 AM EDT 25 mcg HYDROmorphone (DILAUDID) injection As needed, intravenous, Starting on Wed04/09/25 at 0854, Anesthesia Intra-op Given 04/09/2025 10:37 AM EDT 0.2 mg Given 04/09/2025 9:30 AM EDT 0.2 mg Given 04/09/2025 9:16 AM EDT 0.2 mg ketamine injection 50 mg/5 mL in 0.9% sodium chloride syringe As needed, intravenous, Starting on Wed04/09/25 at 0804, Anesthesia Intra-op Given 04/09/2025 8:04 AM EDT 30 mg labetaloL (TRANDATE, NORMODYNE) injection As needed, intravenous, Starting on Wed04/09/25 at 0918, Anesthesia Intra-op Given 04/09/2025 9:18 AM EDT 2.5 mg lactated Ringer's infusion 100 mL/hr Continuous, intravenous, Starting on Wed04/09/25 at 0630, Pre-op Restarted 04/09/2025 7:46 AM EDT New Bag 04/09/2025 7:01 AM EDT 100 mL/hr 100 mL/hr lidocaine (PF) injection 10 mg/mL (1%) As needed, intravenous, Starting on Wed04/09/25 at 0804, Anesthesia Intra-op Given 04/09/2025 8:04 AM EDT 8 mLs methocarbamoL (ROBAXIN) injection As needed, intravenous, Starting on Wed04/09/25 at 0921, Anesthesia Intra-op Given 04/09/2025 10:35 AM EDT 100 mg Given 04/09/2025 9:54 AM EDT 100 mg Given 04/09/2025 9:43 AM EDT 100 mg midazolam (VERSED) injection As needed, intravenous, Starting on Wed04/09/25 at 0752, Anesthesia Intra-op Given 04/09/2025 7:52 AM EDT 1 mg propofol (DIPRIVAN) injection 10 mg/mL bolus As needed, intravenous, Starting on Wed04/09/25 at 0804, Anesthesia Intra-op Given 04/09/2025 8:09 AM EDT 40 mg Given 04/09/2025 8:04 AM EDT 80 mg sugammadex (BRIDION) injection As needed, intravenous, Starting on Wed04/09/25 at 1100, Anesthesia Intra-op Given 04/09/2025 11:00 AM EDT 200 mg vecuronium (NORCURON) injection As needed, intravenous, Starting on Wed04/09/25 at 0805, Anesthesia Intra-op Given 04/09/2025 9:39 AM EDT 2 mg Given 04/09/2025 8:10 AM EDT 2 mg Given 04/09/2025 8:05 AM EDT 8 mg documented in this encounter
--- OUTSIDE RECORDS SUMMARY | 2025-04-11 23:59 | XMS_ITS | Encounter Summary ---
Author Organization [email or web address] ([place], [place], [place], [place]) Address [address] [place] [address] Care Team Providers Care Chief Deputy Coroner Name Role Phone Unavailable Primary Care Provider Unavailabl e Encounter Details Date Type Department Care Team (Late st Contact Info) Description 04/11/2025 11:59 PM EDT Anesthesia Event [facility] Operating Room [address] [place] [address] Joaquim Harrell MD [address] [place] [address] Anesthesia Record Procedure Summary Procedure Name Responsible Anesthesiologist Anesthesia Start Time Anesthesia Stop Time Events No events on file. Meds * Agents No agents on file. * Blood No blood administrations on file. Lines, Drains, and Airways No LDAs on file. documented in this encounter Social History Tobacco Use Types Packs/Day Years Used Date Smoking Tobacco: Every Day Cigarettes Smokeless Tobacco: Never Alcohol Use Standard Drinks/Week Comments Never 0 (1 standard drink = 0.6 oz pur e alcohol) Utilities Answer Date Recorded In the past 12 months, has t he [employer], gas, oil, or water [employer] threatened to shut off services in your home? No 04/09/2025 Interpersonal Safety Answer Date Record ed How often does anyone, mariusz lnadaverde family and friends, physically hurt you? Never [...] your living situation today? I have a [place] place to live 04/09/2025 Think about the [...] Do you speak a language other than [place] at [facility]? No 04/09/2025 Do you want help with [...] of this encounter OR Notes * Anesthesia Preprocedure Evaluation - Joaquim Harrell MD - 04/11/2025 1:40 PM EDT ANESTHESIA PREOPERATIVE EVALUATION Patient: Levar Rand Date/Time: 04/11/25 1350 Procedure: (EX LAP WASHOUT LEFT GROIN ABSESS W PLACEMENT OF DRAIN) (Left) - AO 4 Location: [facility] OR [address] [place] [address] OPERATING ROOM Surgeons: Kulwinder Donovan MD Vitals: 04/11/25 0805 04/11/25 0905 04/11/25 1005 04/11/25 1105 BP: 110/74 113/69 106/68 97/65 Pulse: 119 114 104 103 Resp: 26 25 (!) 41 30 Temp: 98.5 ??F (36.9 ??C) TempSrc: Oral SpO2: 98% 97% 99% 95% Weight: Height: Body mass index is 26.18 kg/m??. No Known Allergies Current Outpatient Medications Medication Instructions aspirin 325 mg, Every Night atorvastatin (LIPITOR) 40 mg, oral, Every Night furosemide (LASIX) 20 mg, oral, Daily as needed metFORMIN (GLUCOPHAGE-XR) 500 mg, oral, Daily with dinner metoprolol succinate (TOPROL-XL) 50 mg, Every Night QUEtiapine (SEROQUEL) 200 mg, 2 times daily spironolactone (ALDACTONE) 25 mg, Every Night tiZANidine (ZANAFLEX) 4 mg, oral, Every 8 hours PRN valsartan (DIOVAN) 40 mg, oral, 2 times daily, This has replaced lisinopril--do NOT take both medications together alvimopan 12 mg oral BID 12 mg at 04/11/25 0818 atorvastatin 40 mg oral Every Night 40 mg at 04/10/252052 cefTRIAXone 2 g intravenous Q24H IVPB Stopped at 04/11/25 0844 enoxaparin 40 mg subcutaneous Q24H 40 mg at 04/10/25 1720 [Held by provider] metoprolol succinate 50 mg oral Every Night metroNIDAZOLE 500 mg intravenous Q6H AWA 500 mg at 04/11/25 1254 pantoprazole 40 mg intravenous Daily 40 mg at 04/11/25 08 QUEtiapine 200 mg oral Every Night 200 mg at 04/10/252053 tiZANidine 4 mg oral TID 4 mg at 04/11/25 08 Relevant Problems CARDIOVASCULAR (+) Coronary artery disease involving autologous artery coronary bypass graft ENDOCRINE (+) Diabetes mellitus, type 2 (HCC) NEURO/PSYCH (+) Anxiety (+) Depression RESPIRATORY SYSTEM (+) Current every day smoker Other (+) Osteoarthritis Multiple cardiac stents prior to CABG 2013. [...] Procedure: CYSTOSCOPY, WITH URETERAL STENT INSERTION; Surgeon: Chun Lockhart MD; Location: [facility]; Service: General Surgery; Laterality: Bilateral; HAND SURGERY Bilateral HERNIA REPAIR LAPAROSCOPY,LOW ANTERIOR RESECTION N/A 04/09/2025 Procedure: (OPEN LOW ANTERIOR RESECTION WITH TAKEDOWN OF COLOVESICAL FISTULA DIVERTING LOOP ILEOSTOMY VENTRAL HERNIA REPAIR AND CYSTOSCOPY AND STENTS) EXPLANTS OF MESH, REDO LAR,EX LAP LYSIS OF ADHESIONS; Surgeon: Chun Lockhart MD; Location: [facility]; Service: General Surgery; Laterality: N/A; Social History Tobacco Use Smoking status: Every Day Types: Cigarettes Smokeless tobacco: Never Substance Use Topics Alcohol use: Never Drug use: Yes Types: Marijuana Comment: weekly Chemistry Component Value Date/Time NA 136 04/11/2025 0326 K 4.0 04/11/2025 0326 CL 105 04/11/2025 0326 CO2 18 (L) 04/11/2025 0326 BUN 10.7 04/11/2025 0326 CREATININE 0.96 04/11/2025 0326 Component Value Date/Time CALCIUM 8.7 04/11/2025 0326 ALKPHOS 56 04/11/2025 0326 AST 14 04/11/2025 0326 ALT <7 04/11/2025 0326 BILITOT 0.8 04/11/2025 0326 Lab Results Component Value Date WBC 14.2 (H) 04/11/2025 HGB 9.8 (L) 04/11/2025 HCT 30.2 (L) 04/11/2025 MCV 85 04/11/2025 PLT 215 04/11/2025 Meds No data recorded Physical Exam Airway Mallampati: I TM distance: >3 FB Neck ROM: full Cardiovascular Rhythm: regular Dental (+) upper dentures, lower dentures Pulmonary Breath sounds clear to auscultation Abdominal Other findings: Full cardiac reports to be sent. Anesthesia Plan ASA 4 (B TAP A-line) intravenous induction Anesthetic plan and risks discussed with patient. documented in this encounter Plan of Treatment Not on file documented as of this encounter Visit Diagnoses Not on filedocumented in this encounter
--- OUTSIDE RECORDS SUMMARY | 2025-04-24 15:47 | XMS_ITS | Encounter Summary ---
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 Role Phone Tay Vaca MD Primary Care Provider + Reason for Visit * Reason Comments Blood Infection * Auth/Cert (Routine) Specialty Diagnoses / Procedures Referred By Contac t Referred To Contact Diagnoses Sepsis (HCC) Sepsis, due to unspecified organism, unspecified whether acute organ dysfunction present (HCC) [address] [place] [address] Phone: tel: fax: [address] [place] [address] Phone: tel: fax: Referral ID Status Reason Start Date Expiration Date Visits Re quested Visits Authorized [id number] 1 1 Encounter Details Date Type Department Care Team (Late st Contact Info) Description 04/24/2025 3:47 PM EDT - 05/01/2025 6:36 PM EDT Hospital Encounter [address] [place] [address] Claude Arriaga MD [address] [place] [address] Te Hpoe PA-C [facility] [address] [address] [place] [address] [place] [address] [phone] [place] [address] [place] [address] [phone] Manjit Naranjo MD [address] [place] [address] [phone] [place] [address] [place] [address] [phone] Sepsis, due to unspecified organism, unspecified whether acute organ dysfunction present (HCC) (Primary Dx) Discharge Disposition: Home or Self Care Social History Tobacco Use Types Packs/Day Years Used Date Smoking Tobacco: Every Day Cigarettes Smokeless Tobacco: Never Alcohol Use Standard Drinks/Week Comments Never 0 (1 standard drink = 0.6 oz pur e alcohol) Utilities Answer Date Recorded In the past 12 months, has t he electric, gas, oil, or water company threatened to shut off services in your home? No 04/24/2025 Interpersonal Safety Answer Date Record ed How often does anyone, mariusz landaverde family and friends, physically hurt you? Never 04/24/2025 How often does anyone, mariusz akhil family and friends, insult or talk down to you? Never 04/24/2025 How often does anyone, triciazakiya landaverde family and friends, threaten you with harm? Never 04/24/2025 How often does anyone, triciazakiya akhil family and friends, scream or curse at you? Never 04/24/2025 Housing Stability Answer Date Recorded What is your living situation today? I have a st lesly place to live 04/24/[address] you li ve. Do you have problems with any of the following? None of the above 04/24/2025 Food Insecurity Answer Date Recorded Within the past 12 months, y ou worried that your food would run out before you got money to buy more. Never true 04/24/2025 Within the past 12 months, t he food you bought just didn't last and you didn't have money to get more. Never true 04/24/2025 Transportation Needs Answer Date Record ed In the past 12 months, has l ack of reliable transportation kept you from medical appointments, meetings, work or from getting things needed for daily living? No 04/24/2025 Financial Resource Strain Answer Date R ecorded How hard is it for you to pa y for the very basics like food, housing, medical care, and heating? Would you say it is: Not hard at all 04/24/2025 Employment Answer Date Recorded Do you want help finding or keeping work or a job? I do not need or want help 04/24/2025 Family and Community Support Answer Gus e Recorded If for any reason you need h elp with day-to-day activities such as bathing, preparing meals, shopping, managing finances, etc., do you get the help you need? I get all the help I need 04/24/2025 Feeling Lonely or Isolated 1 04/24 Educational Attainment Answer Date Babak rded Do you speak a language other than [facility]? No 04/24/2025 Do you want help with school or training? For example, starting or completing job training or getting a high school diploma, GED or equivalent. No 04/24/2025 Physical Activity Answer Date Recorded Number of minutes of exercise per week 90 04/24/2025 Self Management Answer Date Recorded Because of a physical, menta l, or emotional condition, do you have serious difficulty concentrating, remembering, or making decisions? (5 years or older) No 04/24/2025 Because of a physical, menta l, or emotional condition, do you have difficulty doing errands alone such as visiting a doctor's office or shopping? (15 years or older) No 04/24/2025 Substance Use Answer Date Recorded How many times in the past y ear have you used prescription drugs for non-medical reasons? Never 04/24/2025 How many times in the past year have you used [place] legal drugs? Never 04/24/2025 Mental Health Answer Date Recorded Calculation of above two rows 2 Sex and Gender Information Value Date Recorded Sex Assigned at Not on file Legal Sex Male 1:06 PM CDT Gender Identity Not on file Sexual Orientation Not on file documented as of this encounter Last Filed Vital Signs Vital Sign Reading Time Taken Comments Blood Pressure 92/60 05/01/2025 12:32 AM EDT Pulse 62 05/01/2025 12:32 AM EDT Temperature 36.6 C (97.9 F) 05/01/2025 4:20 AM EDT Respiratory Rate 18 05/01/2025 4:20 AM EDT Oxygen Saturation 98% 05/01/2025 4:20 AM EDT Inhaled Oxygen Concentration - - Weight 78.5 kg (173 lb) 04/24/2025 3:44 PM EDT Height 175.3 cm (5' 9 ) 04/24/2025 3:44 PM EDT Body Mass Index 25.55 04/24/2025 3:44 PM EDT documented in this encounter Discharge Summaries * Manjit Naranjo MD - 05/01/2025 2:26 PM EDT HOSPITALIST DISCHARGE SUMMARY Patient: Levar Rand Date of Admission: 04/24/2025 Date of Discharge: 05/01/2025 Primary Care Provider: @PCPENAME@ [facility] Problem List Patient Active Problem List Diagnosis Coronary artery disease involving autologous artery coronary bypass graft Diabetes mellitus, type 2 (HCC) Current every day smoker Hyperlipidemia Osteoarthritis Anxiety Depression Heart failure (HCC) Diverticulitis of colon with perforation Sepsis (HCC) Summary of Hospital Stay: HPI Leavr Rand is a 65 y.o. male with a history of diabetes, hypertension, hyperlipidemia, CAD, anxiety who presents to [facility] in [place], [place] for further evaluation and management of sepsis. Patient presented to the ED after seeing his colorectal surgeon Dr. Lockhart and wassent here for admission due to patient potentially being septic. Patient not currently taking any antibiotics. Patient did have abdominal surgery and has a drain in place. Patient complaining of pain8 out of 10. Patient recently underwent LAR and percutaneous drainage of left groin abscess via IR.Patient continues with Cordon catheter for replacement. Patient left AMA from hospital. Today presented for the first time since leaving AMA. His surgical drain within the peritoneal cavity had dried up and surgeon had removed it. He still has a left groin percutaneous drainage outside. Canal cavityis draining urine consistent with his fistula to the bladder. Patient has been admitted for IV antibiotics and consultation. It is believed at some point patient required some sort of surgery for hisbladder and fistula to left groin at a later date at a tertiary facility such as . Colorectal surgery has no plans for surgical reasons during this hospital stay. Code sepsis was initiated in the ER. Significant lab findings show WBC 11.8, hemoglobin 12.1, hematocrit 38.1, platelets 597, lactic acid 2.4, glucose 104. Chest x-ray showed no acute cardiopulmonary process. Infected groin mesh with abscess: Continue daptomycin, ceftriaxone, and metronidazole, with until 05/25/2025 and reassess. Placed PICC line for long-term venous access. Patient is status post to go home to take care of his financial issues and dog and Strongly advisedcannot leave until IV antibiotics are arranged. Long discussion with the patient in presence of RN Also discussed with social worker clinical spoken to him several times. Pt declines [facility]. 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 Advised by infectious disease: Our preference is to do daptomycin, ceftriaxone, and metronidazole, with until 05/25/2025 and reassess. PICC line for long-term venous access. However, patient says he is unable to comply with treatment plan and will not return to clinic, nor will he comply with PICC care, and he does not have resources to pay for outpatient infusion. He declined remaining in the hospital to receive his therapy. He declined [facility] placement. I have compromised with patient and prescribed linezolid 600 mg p.o. twicedaily and Augmentin 875 mg p.o. twice daily x 21 days. Follow-up with Dr. Amato in 2-3 weeks. Patient needs further evaluation by surgical services potentially at the [facility] forhis complex mesh revision and urologic procedures. 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 Type 2 diabetes mellitus: Blood sugar ACHS Sliding scale CAD status post bypass Asymptomatic Continue home medication Hyperlipidemia: Continue statins Osteoarthritis: Continue pain control Anxiety disorder with major depression: Continue SSRI DVT Prophylaxis: SCUDs. CODE STATUS: Full code Reason for continued hospitalization and medical necessity: Patient with infected mesh with fistula requiring further management Objective Vitals: Temp: [97.9 ??F (36.6 ??C)-98.1 ??F (36.7 ??C)] 97.9 ??F (36.6 ??C) Pulse: [62-79] 62 Resp: [17-18] 18 BP: (92-127)/(60-85) 92/60 Physical exam on day of discharge: Constitutional: Appearance: Normal appearance. He is normal weight. HENT: Head: Normocephalic and atraumatic. Nose: Nose normal. Mouth/Throat: Mouth: Mucous membranes are moist. Pharynx: Oropharynx is clear. Eyes: Extraocular Movements: Extraocular movements intact. Conjunctiva/sclera: Conjunctivae normal. Pupils: Pupils are equal, round, and reactive to light. Cardiovascular: Rate and Rhythm: Normal rate and regular rhythm. Pulses: Normal pulses. Heart sounds: Normal heart sounds. Pulmonary: Effort: Pulmonary effort is normal. Breath sounds: Normal breath sounds. Abdominal: General: Abdomen is flat. Bowel sounds are normal. Palpations: Abdomen is soft. Musculoskeletal: General: Normal range of motion. Cervical back: Normal range of motion and neck supple. Skin: General: Skin is warm and dry. Labs: Results for orders placed or performed during the hospital encounter of 04/24/25 (from the past 24 hours) Glucose, Nova Meter Status: Abnormal Collection Time: 04/30/25 3:43 PM Result Value Ref Range POC-GLUCOSE 144 (H) 70 - 110 mg/dL On Site Manager [id number] Glucose, Nova Meter Status: Abnormal Collection Time: 04/30/25 7:47 PM Result Value Ref Range POC-GLUCOSE 130 (H) 70 - 110 mg/dL On Site Manager [id number] Glucose, Nova Meter Status: Abnormal Collection Time: 05/01/25 10:16 AM Result Value Ref Range POC-GLUCOSE 153 (H) 70 - 110 mg/dL On Site Manager [id number] Radiology: XR chest AP portable Final Result No acute cardiopulmonary process. Images reviewed, interpreted, and dictated by Dr. Davi Perez. Transcribed by Mary Beth Ram Discharge Information Medications on Discharge: Your medication list START taking these medications Instructions Comments Quantity Refills amoxicillin-clavulanate 875-125 mg per tablet Commonly known as: AUGMENTIN Take 1 tablet by mouth 2 (two) times daily with breakfast and dinner for 21 days. 42 tablet 0 linezolid 600 mg tablet Commonly known as: ZYVOX Take 1 tablet (600 mg total) by mouth 2 (two) times daily for 21 days. 42 tablet 0 metroNIDAZOLE 500 MG tablet Commonly known as: FLAGYL Take 1 tablet (500 mg total) by mouth 3 (three) times daily for 29 days. 87 tablet 0 CONTINUE taking these medications Instructions Comments Quantity Refills aspirin 325 MG EC tablet Take 1 tablet (325 mg total) by mouth nightly. 0 atorvastatin 40 MG tablet Commonly known as: LIPITOR Take 1 tablet (40 mg total) by mouth nightly. 0 furosemide 20 MG tablet Commonly known as: LASIX Take 1 tablet (20 mg total) by mouth daily as needed (for Edema/Swelling). 0 metFORMIN 500 MG 24 hr tablet Commonly known as: GLUCOPHAGE-XR Take 1 tablet (500 mg total) by mouth daily with dinner. 0 metoprolol succinate 50 MG 24 hr tablet Commonly known as: TOPROL-XL Take 1 tablet (50 mg total) by mouth nightly. 0 QUEtiapine 200 MG tablet Commonly known as: SEROquel Take 1 tablet (200 mg total) by mouth 2 (two) times daily. 0 tiZANidine 4 MG tablet Commonly known as: ZANAFLEX Take 1 tablet (4 mg total) by mouth every 8 (eight) hours as needed for muscle spasms. 0 STOP taking these medications spironolactone 25 MG tablet Commonly known as: ALDACTONE valsartan 40 MG tablet Commonly known as: DIOVAN Where to Get Your Medications These medications were sent to [facility] at [place], [place] - [address] [facility] [address] [facility] [address] [address] amoxicillin-clavulanate 875-125 mg per tablet linezolid 600 mg tablet metroNIDAZOLE 500 MG tablet Contact information for follow-up Murtaza Amato MD Specialty: Infectious Disease, Infectious Diseases [address] [facility] [address] [facility] [address] Next Steps: Go in 3 week(s) Instructions: ID follow up 05/22/25 @11:00am [facility] Next Steps: Follow up in 2 week(s) Instructions: Please discuss referral with your PCP Tay Vaca MD [facility] Primary Care [address] [place] [address] GODWIN Watson [address] Next Steps: Follow up in 1 week(s) Instructions: PCP follow up Please discuss referral to Urology A message was left with the office to call you with your appointment. If you have not heard from them within 24 hours, please give them a call Discharge Disposition: Home Time spent on Discharge: > 30 minutes Signed: Electronically signed by Manjit Naranjo MD - 05/01/2025 - 2:26 PM [facility] documented in this encounter Medications at Time of Discharge aspirin 325 MG EC tablet Take 1 tablet (325 mg total) by mouth nightly. atorvastatin (LIPITOR) 40 MG tablet Take 1 tablet (40 mg total) by mouth nightly. furosemide (LASIX) 20 MG tablet Take 1 tablet (20 mg total) by mouth daily as needed (for Edema/Swelling) . 01/09/2025 metFORMIN (GLUCOPHAGE-XR) 500 MG 24 hr [...] hours as needed for muscle spasms. 12/16/2023 amoxicillin-clav ulanate (AUGMENTIN) 875-125 mg per tablet Take 1 tablet by mouth 2 (two) times daily with breakfast and dinner for 21 days. 42 tablet 05/01/2025 linezolid (ZYVOX) 600 mg tablet Take 1 tablet (600 mg total) by mouth 2 (two) times daily for 21 days. 42 tablet 05/01/2025 5 metroNIDAZOLE (FLAGYL) 500 MG tablet Take 1 tablet (500 mg total) by mouth 3 (three) times daily for 29 days. 87 tablet 04/26/2025 5 documented as of this encounter Progress Notes * Norma Stevenson RN - 05/01/2025 2:45 PM EDT 05/01/25 1445 Final Discharge Plan Patient appealing discharge? No Does the patient have the ability to fill and receive their discharge medications? Yes Patient returning to prior living situation? Yes Support Systems Family members Discharge Disposition Home Patient is discharging home with son to transport. Patient declined [facility] placement and also declineddoing home IV antibiotics. Patient being discharge on oral antibiotics. IM signed and charted. * Theo Villagomez MD - 05/01/2025 2:29 PM EDT [facility] INFECTIOUS DISEASE PROGRESS NOTE Levar Rand 1960 [id number] Date of consult: 04/25/2025 Admit date: 04/24/2025 Reason for Consultation: Left groin mesh infection, abscess, colovesical fistula, previous culturesfrom 04/11 surgery positive for Enterococcus faecium, Klebsiella pneumonia, Clostridium Subjective History of present illness: Patient is a 65 y.o. Yr old male with a history of diabetes mellitus type 2, essential hypertension, hyperlipidemia, ongoing smoking, perforated diverticulitis with Zina procedure 2011 with reversal 2011, incisional hernia status post ventral hernia repair with Garnett-Pablo 2013, and colovesical fis sandra. Possible need for pacemaker but held off because of fistula. The patient was admitted for an elective repair to [facility] 04/09/2025. He underwent surgery with Dr. Rebekah Lockhart, and Dr. Asim Smith on 04/09/2025. There was no rebekah abscess or significant purulence noted. Therewas the presence of mesh noted from previous repairs of inguinal and abdominal hernias. Mesh was partially excised. The patient left AMA from hospital without a treatment course of antibiotics. He still had drainage surgical tubes in place and Cordon catheter. Patient was convinced by Dr. Lockharton an outpatient visit to return to hospital for admission. Patient had had increasing abdominal pain. He has no other localizing signs or symptoms of infection. I was reconsulted on 04/25/2025. No reported history of ill contacts, zoonotic exposures, TB, HIV, significant travel, immunocompromised state. 04/26/2025 hx rev. Edward dapto, cef, metronid till 05/25 for left groin abscess and mesh infx. No high fever. 04/27/2025 history reviewed. Continues on metronidazole, cephalosporin, daptomycin until 05/25 for left groin abscess and mesh infection. Patient stated he has no resources to comply with the treatmentregimen and is unable to return to clinic, as well as unable to get PICC line care. Antibiotics were to continue until 05/25. 04/30/25: Covering for Dr. Amato. No fevers. No diarrhea. No rashes. PICC in place. Denies complaints. States he cannot stay at [facility] for IV antibiotics as he needs to take care of his bills at the beginning of the month. States he cannot do home infusion due to cost and also does not ability to follow-up outpatient. 05/01/25: Patient quite insistent today that he wants to be discharged on oral antibiotics. No fevers. No issues with PICC. Again declines [facility]. Says IV antibiotics at home are too expensive for him and he cannot routinely follow-up outpatient for monitoring. Accordion drain remains in place. Cordon catheter remains in place. Needs outpatient referral to for surgical intervention. Past Medical History: Diagnosis Date Anxiety CAD [...] STENT INSERTION; Surgeon: Rebekah Lockhart MD; Location: [facility]; Service: General Surgery; Laterality: Bilateral; HAND SURGERY Bilateral HERNIA REPAIR LAPAROSCOPY,LOW ANTERIOR RESECTION N/A 04/09/2025 Procedure: (OPEN LOW ANTERIOR RESECTION WITH TAKEDOWN OF COLOVESICAL FISTULA DIVERTING LOOP ILEOSTOMY VENTRAL HERNIA REPAIR AND CYSTOSCOPY AND STENTS) EXPLANTS OF MESH, REDO LAR,EX LAP LYSIS OF ADHESIONS; Surgeon: Rebekah Lockhart MD; Location: [facility] OR; Service: General Surgery; Laterality: N/A; Pediatric History Patient Parents Not on file Other Topics Concern Not on file Social History Narrative Not on file Positive for smoking, no alcohol or drug use, 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 No Known Allergies There is no immunization history on file for this patient. Medication: @Scheduled Meds: aspirin 325 mg oral Every Night 325 mg at 04/30/252102 atorvastatin 40 mg oral Every Night 40 mg at 04/30/252102 cefTRIAXone 1 g intravenous Daily IVPB Stopped at 05/01/25 1118 DAPTOmycin (CUBICIN) 350 mg in sodium chloride 0.9% (NS) non-DEHP 50 mL IVPB 350 mg intravenous Q24H IVPB Stopped at 04/30/25 212 insulin lispro 0-18 Units subcutaneous 4x Daily AC 3 Units at 05/01/25 1059 metoprolol succinate 50 mg oral Every Night 50 mg at 04/30/252102 metroNIDAZOLE 500 mg intravenous Q8H IVPB Stopped at 05/01/25 1018 QUEtiapine 200 mg oral BID 200 mg at 05/01/25 0909 sodium chloride 10 mL intra-catheter Q8H 10 mL at 05/01/25 0601 [Held by provider] spironolactone 25 mg oral Every Night 25 mg at 04/24/252005 [Held by provider] valsartan 40 mg oral BID 40 mg at 04/24/252005 Continuous Infusions: Current Facility-Administered Medications Medication Dose Route Frequency Provider Last Rate Last Admin acetaminophen (TYLENOL) tablet 1,000 mg 1,000 mg oral Q6H PRN Te Hope PA-C aspirin EC tablet 325 mg 325 mg oral Every Night Te Hoep PA-C 325 mg at 04/30/252102 atorvastatin (LIPITOR) tablet 40 mg 40 mg oral Every Night Te Hope PA-C 40 mg at 04/30/252102 cefTRIAXone (ROCEPHIN) 1 g in sodium chloride 0.9 % (NS) 50 mL SHANELLE IVPB 1 g intravenous Daily Te Hope PA-C IVPB Stopped at 05/01/25 1118 DAPTOmycin (CUBICIN) 350 mg in sodium chloride 0.9% (NS) non-DEHP 50 mL IVPB 350 mg intravenous Q24H Hudson Hilario, [employer] CONSULTANT IVPB Stopped at 04/30/252128 dextrose 50% (D50W) injection 25 g 25 g intravenous Q15 Min PRN Te Hope PA-C glucagon injection 1 mg 1 mg intraMUSCULAR Q15 Min PRN Te Hope PA-C glucose chew tab 16 g 16 g oral Q15 Min PRN Te Hope PA-C hydrALAZINE (APRESOLINE) injection 10 mg 10 mg intravenous Q6H PRN Te Hope PA-C HYDROcodone-acetaminophen (NORCO) 7.5-325 mg per tablet 1 tablet 1 tablet oral Q6H PRN Te Hope PA-C 1 tablet at 05/01/25 0909 insulin lispro (HUMALOG, ADMELOG) injection 0-18 Units 0-18 Units subcutaneous 4x Daily AC Te Hope PA-C 3 Units at 05/01/25 1059 magnesium sulfate IVPB 2 g in sterile water 50 mL (premix) 2 g intravenous Daily PRN Te Hope PA-C magnesium sulfate IVPB 2 g in sterile water 50 mL (premix) 2 g intravenous BID PRN Te Hope PA-C melatonin tablet 3 mg 3 mg oral Every Night PRN Te Hope PA-C 3 mg at 04/24/252005 metoprolol succinate (TOPROL-XL) 24 hr tablet 50 mg 50 mg oral Every Night Te Hope PA-C 50 mg at 04/30/252102 metroNIDAZOLE (FLAGYL) IVPB 500 mg in sodium chloride 0.9 % 100 mL (premix) 500 mg intravenous Q8H Te Hope PA-C IVPB Stopped at 05/01/25 1018 morphine injection 2 mg 2 mg intravenous Q6H PRN Te Hope PA-C 2 mg at 04/28/252023 naloxone (NARCAN) injection 0.2 mg 0.2 mg intravenous Q2 Min PRN Te Hope PA-C ondansetron (ZOFRAN-ODT) disintegrating tablet 4 mg 4 mg oral Q8H PRN Te Hope PA-C Or ondansetron (ZOFRAN) injection 4 mg 4 mg intravenous Q8H PRN Te Hope PA-C potassium chloride (KLOR-CON) ER tablet 40 mEq 40 mEq oral 4x Daily PRN Te Hope PA-C potassium chloride IVPB 10 mEq in 100 mL sterile water (premix) 10 mEq intravenous Q1H PRN Te Hope PA-C QUEtiapine (SEROquel) tablet 200 mg 200 mg oral BID Te Hope PA-C 200 mg at 05/01/25 0909 sodium chloride flush 10 mL 10 mL intravenous PRN Marixa Pennington APRN sodium chloride flush 10 mL 10 mL intra-catheter Q8H Murtaza Amato MD 10 mL at 05/01/25 0601 sodium chloride flush 10 mL 10 mL intra-catheter PRN Murtaza Amato MD [Held by provider] spironolactone (ALDACTONE) tablet 25 mg 25 mg oral Every Night Te Hope PA-C 25 mg at 04/24/252005 tiZANidine (ZANAFLEX) tablet 4 mg 4 mg oral Q8H PRN Te Hope PA-C 4 mg at 04/30/252102 [Held by provider] valsartan (DIOVAN) tablet 40 mg 40 mg oral BID Te Hope PA-C 40 mg at 04/24/252005 Review of Systems: As above Physical Exam: Vital Signs Temp: [97.9 ??F (36.6 ??C)-98.1 ??F (36.7 ??C)] 97.9 ??F (36.6 ??C) Pulse: [62-79] 62 Resp: [17-18] 18 BP: (92-127)/(60-85) 92/60 Blood pressure 92/60, pulse 62, temperature 97.9 ??F (36.6 ??C), temperature source Oral, resp. rate 18, height 1.753 m (5' 9 ), weight 78.5 kg (173 lb), SpO2 98%. GENERAL: Awake and alert, in no distress. HEENT: Normocephalic, atraumatic. EYES: No conjunctival injection. LUNGS: No respiratory distress, no use of accessory muscles. ABDOMEN: Soft, nontender, nondistended. Ostomy with liquid brown stool output. Midline incision closed. LLQ dressing clean. Left lower quadrant drain with minimal output. Cordon catheter in place. SKIN: Warm and dry PSYCHIATRIC: Mental status lucid. No confusion. NEURO: Oriented, nonfocal Results Review: I reviewed the patient's new clinical results. Recent Labs Lab(s) Units 04/26/25 0338 04/25/25 0716 04/24/25 1607 WBC K/??L 8.6 9.1 11.8* HGB GM/DL 10.6* 10.0* 12.1* HCT % 33.4* 31.6* 38.1* PLT K/CU MM 425* 420* 597* Recent Labs Lab(s) Units 05/01/25 1016 04/26/25 0453 04/26/25 0338 NA meq/L -- -- 139 K meq/L -- -- 4.2 CL meq/L -- -- 109 CO2 meq/L -- -- 20* BUN mg/dL -- -- 10.7 CREATININE mg/dL -- -- 0.88 GLUCOSE mg/dL 153* < > 102 CALCIUM mg/dL -- -- 8.4 < > = values in this interval not displayed. Recent Labs Lab(s) Units 04/25/25 0421 ALKPHOS U/L 77 BILITOT mg/dL 0.3 ALT U/L <7 AST U/L 20 No results for input(s): SEDRATE in the last 168 hours. Recent Labs Lab(s) Units 04/25/25 0421 CRP mg/L 6.6* No results for input(s): VANCOTROUGH , VANCORANDOM in the last 168 hours. No results for input(s): LACTATE in the last 168 hours. Estimated Creatinine Clearance: 82.6 mL/min (by C-G formula based on SCr of 0.88 mg/dL). Microbiology: Microbiology Results (last 7 days) Procedure Component Value Units Date/Time Blood Culture [[id number]] Collected: 04/24/25 1607 Order Status: Completed Specimen: Blood Updated: 04/29/25 170 Result No growth in 5 days Blood Culture [[id number]] Collected: 04/24/25 1607 Order Status: Completed Specimen: Blood Updated: 04/29/25 170 Result No growth in 5 days Susceptibility data from last 90 days. Collected Specimen Info Organism Amikacin Amoxicillin Clavulanate Ampicillin Ampicillin/Sulbactam Aztreonam Cefazolin Cefepime Cefotaxime Cefoxitin Ceftazidime Ceftriaxone Cefuroxime Ciprofloxacin Ertapenem 04/11/25 Body Fluid from Retroperitoneum Klebsiella pneumoniae S S R I S I S S I S S I S S Enterococcus faecium Clostridium tertium 04/11/25 Body Fluid from Retroperitoneum Parabacteroides distasonis Collected Specimen Info Organism Gentamicin Imipenem Levofloxacin Meropenem Minocycline Moxifloxacin Piperacillin + Tazobactam Tetracycline Tigecycline Tobramycin Trimethoprim/Sulfamethoxazole 04/11/25 Body Fluid from Retroperitoneum Klebsiella pneumoniae S S S S R S S I I S S Enterococcus faecium Clostridium tertium 04/11/25 Body Fluid from Retroperitoneum Parabacteroides distasonis Radiology: Radiology Results (last 3 days) No results found for the last 72 hours. IMPRESSION: Left groin abscess with likely chronically infected or recurrently infected Garnett-Pablo mesh previously placed 2013, and in the late with history of recurrent infection per new history. 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 Organisms isolatedincluded Klebsiella, Enterococcus faecium (no susceptibilities able to be performed), Clostridium, Parabacteroides from 04/11 surgery. Partially treated after leaving AMA. Patient very resource constrained to participate in his care. Colovesical fistula repair 04/09/2025, related to above. Diabetes mellitus type 2 with increased risk for infection. Noncompliance, high risk given resource limitations. Patient stated he would have difficulty returning for follow-up appointments because he could not afford the gasoline. Previously left AMA from [facility] with Cordon in place and surgical drains in place. Anemia, chronic disease. Stable. PLAN: Our preference is to do daptomycin, ceftriaxone, and metronidazole, with until 05/25/2025 and reassess. PICC line for long-term venous access. However, patient says he is unable to comply with treatment plan and will not return to clinic, nor will he comply with PICC care, and he does not have resources to pay for outpatient infusion. He declined remaining in the hospital to receive his therapy. He declined [facility] placement. I have compromised with patient and prescribed linezolid 600 mg p.o. twicedaily and Augmentin 875 mg p.o. twice daily x 21 days. Follow-up with Dr. Amato in 2-3 weeks. Patient needs further evaluation by surgical services potentially at the [facility] forhis complex mesh revision and urologic procedures. Complex case. Discussed with hospitalist and CM. UM = 30 minutes This visit included the following complex service elements: Complex medical decision-making associated with antimicrobial prescribing. In-depth chart review with high level synthesis for complex diagnoses. Theo Villagomez MD 05/01/2025 2:29 PM EDT * Norma Stevenson RN - 05/01/2025 1:33 PM EDTSummary: Discharge Planning Patient is requesting to be discharged home on oral antibiotics. Hospitalist updated. * Manjit Naranjo MD - 05/01/2025 9:08 AM EDT Subjective Levar Rand is a 65 y.o. male on hospital day 7. Patient seen examined bedside no overnight issues. Review of Systems As above Objective Vitals: Temp: [97.5 ??F (36.4 ??C)-98.1 ??F (36.7 ??C)] 97.9 ??F (36.6 ??C) Pulse: [50-79] 62 Resp: [17-18] 18 BP: (92-127)/(60-85) 92/60 Intake/Output: Intake/Output Summary (Last 24 hours) at 05/01/2025 0908 Last data filed at 05/01/2025 0600 Gross per 24 hour Intake -- Output 2950 ml Net -2950 ml Physical exam: Alert oriented not in acute distress. Moist mucous membranes: Nonicteric no injection. Heart normal rate and rhythm normal pulse cap refill less than 2 seconds. Normal pulmonary effort equal breath sounds. Skin: Ileostomy bag in place no leakage noted normal stool color. Labs: Recent Labs Lab(s) Units 04/30/25 1947 04/30/25 1543 04/30/25 1026 04/26/25 0453 04/26/25 0338 04/25/25 1039 04/25/25 0716 04/25/25 0501 04/25/25 0421 04/24/25202504/24/25 1607 WBC K/??L -- -- -- -- 8.6 -- 9.1 -- -- -- 11.8* HGB GM/DL -- -- -- -- 10.6* -- 10.0* -- -- -- 12.1* HCT % -- -- -- -- 33.4* -- 31.6* -- -- -- 38.1* PLT K/CU MM -- -- -- -- 425* -- 420* -- -- -- 597* NA meq/L -- -- -- -- 139 -- -- -- 140 -- 143 K meq/L -- -- -- -- 4.2 -- -- -- 4.6 -- 4.5 CL meq/L -- -- -- -- 109 -- -- -- 112 -- 108 CO2 meq/L -- -- -- -- 20* -- -- -- 21* -- 24 BUN mg/dL -- -- -- -- 10.7 -- -- -- 9.3 -- 10.0 CREATININE mg/dL -- -- -- -- 0.88 -- -- -- 1.04 -- 1.10 EGFR mL/min/1.73m2 -- -- -- -- 95 -- -- -- 79 -- 74 GLUCOSE mg/dL 130* 144* 118* < > 102 < > -- < > 98 < > 99 CALCIUM mg/dL -- -- -- -- 8.4 -- -- -- 8.3* -- 9.3 ALKPHOS U/L -- -- -- -- -- -- -- -- 77 -- 92 BILITOT mg/dL -- -- -- -- -- -- -- -- 0.3 -- 0.2 PROT g/dL -- -- -- -- -- -- -- -- 6.3* -- 8.2 ALT U/L -- -- -- -- -- -- -- -- <7 -- 10 AST U/L -- -- -- -- -- -- -- -- 20 -- 20 < > = values in this interval not displayed. Results for orders placed or performed during the hospital encounter of 04/24/25 (from the past 24 hours) Glucose, Nova Meter Status: Abnormal Collection Time: 04/30/25 10:26 AM Result Value Ref Range POC-GLUCOSE 118 (H) 70 - 110 mg/dL On Site Manager [id number] Glucose, Nova Meter Status: Abnormal Collection Time: 04/30/25 3:43 PM Result Value Ref Range POC-GLUCOSE 144 (H) 70 - 110 mg/dL On Site Manager [id number] Glucose, Nova Meter Status: Abnormal Collection Time: 04/30/25 7:47 PM Result Value Ref Range POC-GLUCOSE 130 (H) 70 - 110 mg/dL On Site Manager [id number] Radiology: XR chest AP portable Final Result No acute cardiopulmonary process. Images reviewed, interpreted, and dictated by Dr. Davi Perez. Transcribed by Mary Beth Ram Medications: Scheduled Meds: aspirin 325 mg oral Every Night 325 mg at 04/30/252102 atorvastatin 40 mg oral Every Night 40 mg at 04/30/252102 cefTRIAXone 1 g intravenous Daily IVPB Stopped at 04/30/25 1307 DAPTOmycin (CUBICIN) 350 mg in sodium chloride 0.9% (NS) non-DEHP 50 mL IVPB 350 mg intravenous Q24H IVPB Stopped at 04/30/252128 insulin lispro 0-18 Units subcutaneous 4x Daily AC metoprolol succinate 50 mg oral Every Night 50 mg at 04/30/252102 metroNIDAZOLE 500 mg intravenous Q8H IVPB Stopped at 05/01/25 0102 QUEtiapine 200 mg oral BID 200 mg at 04/30/252102 sodium chloride 10 mL intra-catheter Q8H 10 mL at 05/01/25 0601 [Held by provider] spironolactone 25 mg oral Every Night 25 mg at 04/24/252005 [Held by provider] valsartan 40 mg oral BID 40 mg at 04/24/252005 Continuous Infusions: Current Facility-Administered Medications Medication Dose Route Frequency Provider Last Rate Last Admin acetaminophen (TYLENOL) tablet 1,000 mg 1,000 mg oral Q6H PRN Te Hope PA-C aspirin EC tablet 325 mg 325 mg oral Every Night Te Hope PA-C 325 mg at 04/30/252102 atorvastatin (LIPITOR) tablet 40 mg 40 mg oral Every Night Te Hope PA-C 40 mg at 04/30/252102 cefTRIAXone (ROCEPHIN) 1 g in sodium chloride 0.9 % (NS) 50 mL SHANELLE IVPB 1 g intravenous Daily Te Hope PA-C IVPB Stopped at 04/30/25 1307 DAPTOmycin (CUBICIN) 350 mg in sodium chloride 0.9% (NS) non-DEHP 50 mL IVPB 350 mg intravenous Q24H Hudson Hilario, [employer] CONSULTANT IVPB Stopped at 04/30/252128 dextrose 50% (D50W) injection 25 g 25 g intravenous Q15 Min PRN Te Hope PA-C glucagon injection 1 mg 1 mg intraMUSCULAR Q15 Min PRN Te Hope PA-C glucose chew tab 16 g 16 g oral Q15 Min PRN Te Hope PA-C hydrALAZINE (APRESOLINE) injection 10 mg 10 mg intravenous Q6H PRN Te Hope PA-C HYDROcodone-acetaminophen (NORCO) 7.5-325 mg per tablet 1 tablet 1 tablet oral Q6H PRN Te Hope PA-C 1 tablet at 04/30/252102 insulin lispro (HUMALOG, ADMELOG) injection 0-18 Units 0-18 Units subcutaneous 4x Daily AC Te Hope PA-C magnesium sulfate IVPB 2 g in sterile water 50 mL (premix) 2 g intravenous Daily PRN Te Hope PA-C magnesium sulfate IVPB 2 g in sterile water 50 mL (premix) 2 g intravenous BID PRN Te Hope PA-C melatonin tablet 3 mg 3 mg oral Every Night PRN Te Hope PA-C 3 mg at 04/24/252005 metoprolol succinate (TOPROL-XL) 24 hr tablet 50 mg 50 mg oral Every Night Te Hope PA-C 50 mg at 04/30/252102 metroNIDAZOLE (FLAGYL) IVPB 500 mg in sodium chloride 0.9 % 100 mL (premix) 500 mg intravenous Q8H Te Hope PA-C IVPB Stopped at 05/01/25 010 morphine injection 2 mg 2 mg intravenous Q6H PRN Te Hope PA-C 2 mg at 04/28/252023 naloxone (NARCAN) injection 0.2 mg 0.2 mg intravenous Q2 Min PRN Te Hope PA-C ondansetron (ZOFRAN-ODT) disintegrating tablet 4 mg 4 mg oral Q8H PRN Te Hope PA-C Or ondansetron (ZOFRAN) injection 4 mg 4 mg intravenous Q8H PRN Te Hope PA-C potassium chloride (KLOR-CON) ER tablet 40 mEq 40 mEq oral 4x Daily PRN Te Hope PA-C potassium chloride IVPB 10 mEq in 100 mL sterile water (premix) 10 mEq intravenous Q1H PRN Te Hope PA-C QUEtiapine (SEROquel) tablet 200 mg 200 mg oral BID Te Hope PA-C 200 mg at 04/30/252102 sodium chloride flush 10 mL 10 mL intravenous PRN Marixa Pennington APRN sodium chloride flush 10 mL 10 mL intra-catheter Q8H Murtaza Amato MD 10 mL at 05/01/25 0601 sodium chloride flush 10 mL 10 mL intra-catheter PRN Murtaza Amato MD [Held by provider] spironolactone (ALDACTONE) tablet 25 mg 25 mg oral Every Night Te Hope PA-C 25 mg at 04/24/252005 tiZANidine (ZANAFLEX) tablet 4 mg 4 mg oral Q8H PRN Te Hope PA-C 4 mg at 04/30/252102 [Held by provider] valsartan (DIOVAN) tablet 40 mg 40 mg oral BID Te Hope PA-C 40 mg at 04/24/252005 PRN Meds: @MEDSPRN@ Assessment and Plan Infected OA admission with abscess Sepsis present on admission resolved -Daptomycin, ceftriaxone, metronidazole through 05/25/2025 - ID follow-up. - PICC line, weekly labs Vesicocutaneous fistula Status post surgery -Loop ileostomy, stoma care, - Follow-up with the [facility] surgical team. For complex Garnett-Pablo mesh revision and urologic procedures. Other comorbidities: Type 2 diabetes mellitus: Blood sugar ACHS Sliding scale CAD status post bypass Asymptomatic Continue home medication Hyperlipidemia: Continue statins Osteoarthritis: Continue pain control Anxiety disorder with major depression: Continue SSRI Diet: Orders Placed This Encounter Procedures Consistent Carbohydrate DVT ppx: SCDs PUD ppx: None Code Status: Full Code MDM: Reviewed labs hemoglobin is 10 platelets 425 white count is normal left shift is 0.5% electrolytes normal kidney function, Vital signs shows soft blood pressure. No tachycardia. Patient medically stable for discharge Discharge Planning: [facility] [place] vs home Barriers to discharge : IV antibiotics. social issues making patient wants to go home. * Norma Stevenson RN - 04/30/2025 2:05 PM EDTSummary: Discharge Planning New CM today. CM spoke with the patient who stated he would not go to [facility] [place]. Patient also stated he could not afford the cost of the IV antibiotics and also could not afford to come for follow up appointments. Per Dr. Villagomez may need to discharge on oral antibiotics? CM will continue to follow. * Zuhair Collier MD - 04/30/2025 1:05 PM EDT Images from the original note were not included. [facility] Progress Note Patient Name: Levar Rand : 1960 Date of Admission: 04/24/2025 Date of Service: 04/30/2025 PMD: Tay Vaca MD Hospital Course: 65 y.o. Yr old male with a history of diabetes mellitus type 2, essential hypertension, hyperlipidemia, ongoing smoking, perforated diverticulitis with Zina procedure 2011 with reversal 2011, incisional hernia status post ventral hernia repair with Garnett-Pablo 2013, and colovesical fistula. Possible need for pacemaker but held off because of fistula. The patient was admitted for an elective repair to [facility] 04/09/2025. He underwent surgery with Dr. Rebekah Lockhart, and Dr. Silva on 04/09/2025. There was no rebekah abscess or significant purulence noted. There was the presence of mesh noted from previous repairs of inguinal and abdominal hernias. Mesh was partially excised. The patient left AMA from hospital without a treatment course of antibiotics. He still had drainage surgical tubes in place and Cordon catheter. Patient was convinced by Dr. Lockhart on an outpatient visit to return to hospital for admission. Patient had had increasing abdominal pain. He has noother localizing signs or symptoms of infection. I was reconsulted on 04/25/2025. Consultants: Infectious disease Wound care Procedures: Wound care Anti-infectives: Ceftriaxone Daptomycin Flagyl. April 27, 2025 Chief Complaint: Follow-up patient with groin abscess and sepsis and infected groin mash since several days Subjective:/events of the last 24 hours Seen by infectious disease for left groin infection Patient have social issues regarding ability to return to the clinic and getting PICC line care andantibiotic till 05/25/2025. family preservation caseworker to help with arrangement for antibiotic and follow-ups Long discussion with infectious disease advise patient has infection with Enterococcus Klebsiella and Clostridium. Need antibiotics April 28, 2025: Chief Complaint: Follow-up patient with groin abscess and sepsis and infected groin mash since several days Subjective:/events of the last 24 hours Very long discussion with the patient regarding IV antibiotics and recommendation of infectious disease. Patient declines [facility] [place]. He is concerned about his financial situation and payment for IV antibiotics Very long discussion with infectious disease: Advised to continue Continue daptomycin, ceftriaxone, and metronidazole, with until 05/25/2025 and reassess. PICC line for long-term venous access. April 29, 2025: Chief Complaint: Follow-up patient with groin abscess and sepsis and infected groin mash since several days Subjective:/events of the last 24 hours: Patient insists wants to go home take care of his financial issues send Long discussion with the patient advised he need IV antibiotics that he is more concerned about his dog Does not want his family to be involved in his care. April 30, 2025: Chief Complaint: Follow-up patient with groin abscess and sepsis and infected groin mash since several days Subjective:/events of the last 24 hours: He has PICC line in place patient cannot stay at [facility] [place] put antibiotics because of issues with financial cost. Patient refusing to do the home infusion Very long discussion with social worker clinical regarding help with IV antibiotic and discharge planning Offered patient help with discharge planning. Review Of Systems: GENERAL: Improving weakness and fatigue, no time is denies any weight loss appetite is decreased. HEENT: Denies any rhinitis, no sore throat, no diplopia , hearing is normal Respiratory: Denies any shortness of breath , sweating ,dyspnea on exertion , cough or sputum. CVS: Denies any chest pain , palpitation or syncope. Gi: No nausea, no vomiting, no diarrhea, no hematemesis , no melena , no rectal bleeding : No dysuria frequency , hematuria, no retention: Musculoskeletal: Denies any arthritis, or calf pain, complains of improving groin abscess and infection. Hematological: No bleeding , no petechiae. Skin: Denies rash , pruritus , jaundice, improving abscess and rash of the groin Endocrine: No polyuria , polydipsia , polyphagia. MOLD CLOSER: Denies any confusion , headache , or seizure disorder Psychiatry: No anxiety , or depression, no suicide ideation Objective: Vitals: 04/30/25 0925 04/30/25 0930 04/30/25 0945 04/30/25 1120 BP: 117/78 121/72 BP Location: Patient Position: Pulse: 57 50 67 72 Resp: Temp: 97.7 ??F (36.5 ??C) 97.5 ??F (36.4 ??C) TempSrc: SpO2: 96% 99% 96% Weight: Height: Physical Exam: GENERAL APPEARANCE: Physical Exam Constitutional: Appearance: Normal appearance. He is normal weight. HENT: Head: Normocephalic and atraumatic. Nose: Nose normal. Mouth/Throat: Mouth: Mucous membranes are moist. Pharynx: Oropharynx is clear. Eyes: Extraocular Movements: Extraocular movements intact. Conjunctiva/sclera: Conjunctivae normal. Pupils: Pupils are equal, round, and reactive to light. Cardiovascular: Rate and Rhythm: Normal rate and regular rhythm. Pulses: Normal pulses. Heart sounds: Normal heart sounds. Pulmonary: Effort: Pulmonary effort is normal. Breath sounds: Normal breath sounds. Abdominal: General: Abdomen is flat. Bowel sounds are normal. Palpations: Abdomen is soft. Musculoskeletal: General: Normal range of motion. Cervical back: Normal range of motion and neck supple. Skin: General: Skin is warm and dry. Capillary Refill: Capillary refill takes less than 2 seconds., Improving abscess of the groin and the rash. Neurological: General: No focal deficit present. Mental Status: He is alert and oriented to person, place, and time. Mental status is at baseline. Psychiatric: Mood and Affect: Mood normal. Normal Mental status. Normal Cranial Nervies. EOMI. GERONIMO. Normal 5/5 muscular strength in both upper and lower extremities. Normal sensation. Normal and symmetric reflexes. Normal cerbellar function. Normal Gait. Negative Babinski. Labs Reviewed CBC: Lab Results Component Value Date WBC 8.6 04/26/2025 HGB 10.6 (L) 04/26/2025 HCT 33.4 (L) 04/26/2025 MCV 86 04/26/2025 CMP: Lab Results Component Value Date NA 139 04/26/2025 CO2 20 (L) 04/26/2025 GLUCOSE 118 (H) 04/30/2025 BUN 10.7 04/26/2025 CREATININE 0.88 04/26/2025 ALBUMIN 2.6 (L) 04/25/2025 CALCIUM 8.4 04/26/2025 AST 20 04/25/2025 ALT <7 04/25/2025 Lipis Panel: No results found for: CHOL , HDL , LDLCALC , CHOLHDL INR: No results found for: INR , PT Cardiac: No results found for: CK , CKMB No results found for: BNP Lactate: No results found for: LACTATE Blood Culture: No components found for: CULT Imaging: XR chest AP portable Result Date: 04/24/2025 PORTABLE CHEST 04/24/2025 4:19 PM HISTORY: Sepsis. COMPARISON: April 11, 2025. FINDINGS: The heart is normal in size. The patient is status post sternotomy for CABG. The mediastinum is unremarkable. The lungs are clear. There is no pneumothorax. No acute cardiopulmonary process. Images reviewed, interpreted, and dictated by Dr. Davi Perez. Transcribed by [facility] CT ABDOMEN/PELVIS WITH IV CONTRAST Standard Protocol Result Date: 04/15/2025 CT SCAN OF THE ABDOMEN AND PELVIS WITH CONTRAST HISTORY: Bladder fistula, mass. PROCEDURE: Axial CTimages were obtained from the lung bases to the pubic symphysis with IV contrast administration. Oral contrast was also given. Coronal and sagittal reformatted images were also obtained and reviewed.This study was performed with techniques to keep radiation doses as low as reasonably achievable, (ALARA). Individualized dose reduction techniques using automated exposure control or adjustment of mA and/or kV according to the patient size were employed. COMPARISON: April 11, 2025. FINDINGS: LOWERCHEST: The heart is normal in size. Mild [...] renal cysts are present. No hydronephrosis. A Cordon catheter is present in the bladder. There [...] abdomen and pelvic wall. No significant body wallhernias. Mild anasarca is noted. Bones: No acute fracture. Bilateral L5 pars defects are seen with grade 1 anterolisthesis of L5 on S1. Moderate degenerative changes are noted in the spine. Interval placement of a left pelvic drain [...] as low as reasonably achievable, (ALARA). Individualized dosereduction techniques using automated exposure control or adjustment [...] second left pelvic drain is present. A Cordon catheter is present in the bladder. Postoperative changes are seen in the distal sigmoid colon. There is no evidenceof bowel obstruction. No acute bony abnormality is identified. Degenerative changes are noted in the lower lumbar spine. There are bilateral L5 pars defects. IMPRESSION: Contrast leakage from the anterior bladder to the left lateral lower pelvic fluid collection consistent with a fistula. A drain is present within the left lower pelvis fluid collection with significant improvement since the priorCT. Images reviewed, interpreted, and dictated by Gunnar De La Paz MD CT pelvis without IV contrast Result Date: 04/15/2025 CT SCAN OF THE ABDOMEN AND PELVIS WITH CONTRAST HISTORY: Bladder fistula, mass. PROCEDURE: Axial CTimages were obtained from the lung bases to the pubic symphysis with IV contrast administration. Oral contrast was also given. Coronal and sagittal reformatted images were also obtained and reviewed.This study was performed with techniques to keep radiation doses as low as reasonably achievable, (ALARA). Individualized dose reduction techniques using automated exposure control or adjustment of mA and/or kV according to the patient size were employed. COMPARISON: April 11, 2025. FINDINGS: LOWERCHEST: The heart is normal in size. Mild [...] renal cysts are present. No hydronephrosis. A Cordon catheter is present in the bladder. There [...] abdomen and pelvic wall. No significant body wallhernias. Mild anasarca is noted. Bones: No acute fracture. Bilateral L5 pars defects are seen with grade 1 anterolisthesis of L5 on S1. Moderate degenerative changes are noted in the spine. Interval placement of a left pelvic drain [...] as low as reasonably achievable, (ALARA). Individualized dosereduction techniques using automated exposure control or adjustment [...] second left pelvic drain is present. A Cordon catheter is present in the bladder. Postoperative changes are seen in the distal sigmoid colon. There is no evidenceof bowel obstruction. No acute bony abnormality is identified. Degenerative changes are noted in the lower lumbar spine. There are bilateral L5 pars defects. IMPRESSION: Contrast leakage from the anterior bladder to the left lateral lower pelvic fluid collection consistent with a fistula. A drain is present within the left lower pelvis fluid collection with significant improvement since the priorCT. Images reviewed, interpreted, and dictated by Gunnar De La Paz MD CT DRAINAGE PERITONEAL/RETROPERITONEAL W GUIDANCE Result Date: 04/11/2025 CT GUIDED DRAIN PLACEMENT HISTORY: Left groin abscess. . ATTENDING RADIOLOGIST: Dr. Gaviria. PHYSICIAN PRODUCT SAFETY TESTER: Jean Pierre Hughes PA-C. PROCEDURE: After informed consent was obtained and a time-out was performed, the patient was prepped and draped in the usual sterile fashion over the left groin. Utilizing local anesthesia and sterile technique with a catheter access needle, access to the fluid collection was obtained under direct CT guidance. An Amplatz wire was placed. Serial dilatation was performed. A 10 Armenian pigtail catheter was placed looped in the [...] process. Overall sedation time was [address] guided percutaneous drain placement without immediate complication. Sample of the fluid was sent to lab for cultures. Images reviewed, interpreted, and dictated by Dr. Roro Gaviria. Transcribed by Jean Pierre Hughes PA-C XR chest AP portable Result Date: 04/11/2025 PORTABLE CHEST 04/11/2025 11:00 AM HISTORY: Shortness of air COMPARISON: April 09, 2025 FINDINGS: Thepatient is status post median sternotomy. The heart is stable in size. The lung sanchez demonstrate no significant change. There is no pneumothorax. The support devices are in good position. There has been no significant interval change. Continued follow up recommended. Images reviewed, interpreted, and dictated by Dr. Roro Gaviria. Transcribed by Giovany Meza PA-C. CT ABDOMEN/PELVIS WITH IV CONTRAST Standard Protocol Result Date: 04/11/2025 CT SCAN OF THE ABDOMEN AND PELVIS WITH CONTRAST; 04/11/2025 9:34 AM HISTORY: Epigastric pain. COMPARISON: January 2018. PROCEDURE: The patient was injected with IV contrast. Axial images were obtained fromthe lung bases to the pubic symphysis by [...] bilateral L5 pars defects. There is mild bi basilar atelectasis. There is a gallstone in the gallbladder. There is perinephric stranding bilaterally. There are peripelvic cysts bilaterally. There is a simple cyst projecting off the superior aspect of the right kidney. The solid organs are otherwise unremarkable. There is mesh in the anteriorabdominal wall. There are skin alexandro in the anterior abdominal wall. There is trace ascites and free intraperitoneal air. There is a right abdominal ostomy. There is a ventral hernia in the anterior left abdomen containing a small amount of fluid and free air. PELVIS: The urinary bladder is decompressed by a Cordon. There is flocculent fluid and debris extending into the left inguinal canal, likely representing an abscess. There is stranding in the anterior abdominal wall. Status post sigmoid colon resection. The appendix is not identified. The bowel loops are mildly distended. There is presacral stranding and fluid. There is stranding in the right inguinal canal. A surgical drain is looped in the pelvis. Minimal free fluid and free air, consistent with recent operative intervention. Perinephric stranding is nonspecific but pyelonephritis is not excluded. Loculated fluid collection in the left inguinal canal could represent an abscess. Images reviewed, interpreted, and dictated by Roro Gaviria MD XR chest AP portable Result Date: 04/10/2025 PORTABLE CHEST 04/09/2025 8:38 PM HISTORY: [...] side port terminates at the gastroesophageal junction. Interval placement of nasogastric tube. Side port terminates at the GE junction. Mild increased interstitial markings may represent mild edema. Images reviewed, interpreted, and dictated by Dr. Jeanie Melton. Transcribed by Jean Pierre Hughes PA-C Medications Reviewed: aspirin 325 mg oral Every Night 325 mg at 04/29/252124 atorvastatin 40 mg oral Every Night 40 mg at 04/29/252124 cefTRIAXone 1 g intravenous Daily 1 g at 04/30/25 120 DAPTOmycin (CUBICIN) 350 mg in sodium chloride 0.9% (NS) non-DEHP 50 mL IVPB 350 mg intravenous Q24H IVPB Stopped at 04/29/252152 insulin lispro 0-18 Units subcutaneous 4x Daily AC metoprolol succinate 50 mg oral Every Night 50 mg at 04/29/252124 metroNIDAZOLE 500 mg intravenous Q8H IVPB Stopped at 04/30/25 1205 QUEtiapine 200 mg oral BID 200 mg at 04/30/25 0955 sodium chloride 10 mL intra-catheter Q8H 10 mL at 04/30/25 0506 [Held by provider] spironolactone 25 mg oral Every Night 25 mg at 04/24/252005 [Held by provider] valsartan 40 mg oral BID 40 mg at 04/24/252005 Assessment/Plan: Patient Active Problem List Diagnosis Date Noted Sepsis (HCC) 04/24/2025 Diverticulitis of colon with perforation 04/09/2025 Anxiety 04/06/2025 Depression 04/06/2025 Heart failure (HCC) 04/06/2025 Coronary artery disease involving autologous artery coronary bypass graft 03/12/2025 Diabetes mellitus, type 2 (HCC) 03/12/2025 Current every day smoker 03/12/2025 Hyperlipidemia 03/12/2025 Osteoarthritis 06/21/2017 Medical decision making: Infected groin mesh with abscess: Continue daptomycin, ceftriaxone, and metronidazole, with until 05/25/2025 and reassess. Placed PICC line for long-term venous access. Patient is status post to go home to take care of his financial issues and dog and Strongly advisedcannot leave until IV antibiotics are arranged. Long discussion with the patient in presence of RN Also discussed with social worker clinical spoken to him several times. Pt declines [facility]. 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 .Informed pt would inform providers of his decision. MD made aware. Advised by infectious disease: Medication/Dose/Route/Frequency: Daptomycin 500 mg IV daily, ceftriaxone 2 g IV daily, metronidazole 500 mg p.o. 3 times daily. End Date: 05/25/2025 diagnosis: Left groin abscess and mesh infection with Enterococcus, Klebsiella,Clostridium status post previous resection of infected mesh 04/11/2025, and repair of colovesical fistula Labs Needed and Frequency: CBC with differential, CMP, CRP, CPK weekly while on IV antibiotics. Access existing central venous access device or insert peripheral IV as needed.: Ordered: CBC [facility] Social service for arranging for IV antibiotics and discharge planning Daptomycin Flagyl Ceftriaxone Sepsis with leukocytosis secondary to left inguinal groin infected mesh with vesico-cutaneous fistula: Seen by surgery advise IV antibiotics referral to [facility] and infectious disease: [facility] will [facility] and urologic procedures. Type 2 diabetes mellitus: Blood sugar ACHS Sliding scale CAD status post bypass Asymptomatic Continue home medication Hyperlipidemia: Continue statins Osteoarthritis: Continue pain control Anxiety disorder with major depression: Continue SSRI DVT Prophylaxis: SCUDs. CODE STATUS: Full code Reason for continued hospitalization and medical necessity: Patient with infected mesh with fistula requiring further management Orders today [facility] Social service for arranging for IV antibiotics and discharge planning Daptomycin Flagyl Ceftriaxone Time spent: 32 minutes not only including [id number] rounding putting in the orders writing the note and all the conversation reviewing the records This cook dinner was electronically signed. It was dictated by use of voice recognition software and electronically transcribed. The cook dinner may contain errors not detected in proofreading. Disposition: To be determined Seen by 7th grade social studies teacher advised: Pt declines [facility]. 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 .Informed pt would inform providers of his decision. This has been electronically signed by: Zuhair Collier MD.[email or web address] [facility] 04/30/2025 * Theo Villagomez MD - 04/30/2025 11:47 AM EDT [facility] INFECTIOUS DISEASE PROGRESS NOTE Levar Rand 1960 [id number] Date of consult: 04/25/2025 Admit date: 04/24/2025 Requesting Provider: @[email or web address]@ Evaluating physician: Theo Villagomez MD Reason for Consultation: Left groin mesh infection, abscess, colovesical fistula, previous culturesfrom 04/11 surgery positive for Enterococcus faecium, Klebsiella pneumonia, Clostridium Chief Complaint: Subjective History of present illness: Patient is a 65 y.o. Yr old male with a history of diabetes mellitus type 2, essential hypertension, hyperlipidemia, ongoing smoking, perforated diverticulitis with Zina procedure 2011 with reversal 2011, incisional hernia status post ventral hernia repair with Garnett-Pablo 2013, and colovesical fis sandra. Possible need for pacemaker but held off because of fistula. The patient was admitted for an elective repair to [facility] 04/09/2025. He underwent surgery with Dr. Rebekah Lockhart, and Dr. Asim Smith on 04/09/2025. There was no rebekah abscess or significant purulence noted. Therewas the presence of mesh noted from previous repairs of inguinal and abdominal hernias. Mesh was partially excised. The patient left AMA from hospital without a treatment course of antibiotics. He still had drainage surgical tubes in place and Cordon catheter. Patient was convinced by Dr. Lockharton an outpatient visit to return to hospital for admission. Patient had had increasing abdominal pain. He has no other localizing signs or symptoms of infection. I was reconsulted on 04/25/2025. No reported history of ill contacts, zoonotic exposures, TB, HIV, significant travel, immunocompromised state. 04/26/2025 hx rev. Edward dapto, cef, metronid till 05/25 for left groin abscess and mesh infx. No high fever. 04/27/2025 history reviewed. Continues on metronidazole, cephalosporin, daptomycin until 05/25 for left groin abscess and mesh infection. Patient stated he has no resources to comply with the treatmentregimen and is unable to return to clinic, as well as unable to get PICC line care. Antibiotics were to continue until 05/25. 04/30/25: Covering for Dr. Amato. No fevers. No diarrhea. No rashes. PICC in place. Denies complaints. States he cannot stay at [facility] for IV antibiotics as he needs to take care of his bills at the beginning of the month. States he cannot do home infusion due to cost and also does not ability to follow-up outpatient. Past Medical History: Diagnosis Date Anxiety CAD [...] STENT INSERTION; Surgeon: Rebekah Lockhart MD; Location: [facility]; Service: General Surgery; Laterality: Bilateral; HAND SURGERY Bilateral HERNIA REPAIR LAPAROSCOPY,LOW ANTERIOR RESECTION N/A 04/09/2025 Procedure: (OPEN LOW ANTERIOR RESECTION WITH TAKEDOWN OF COLOVESICAL FISTULA DIVERTING LOOP ILEOSTOMY VENTRAL HERNIA REPAIR AND CYSTOSCOPY AND STENTS) EXPLANTS OF MESH, REDO LAR,EX LAP LYSIS OF ADHESIONS; Surgeon: Rebekah Lockhart MD; Location: [facility]; Service: General Surgery; Laterality: N/A; Pediatric History Patient Parents Not on file Other Topics Concern Not on file Social History Narrative Not on file Positive for smoking, no alcohol or drug use, 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 No Known Allergies There is no immunization history on file for this patient. Medication: @Scheduled Meds: aspirin 325 mg oral Every Night 325 mg at 04/29/252124 atorvastatin 40 mg oral Every Night 40 mg at 04/29/252124 cefTRIAXone 1 g intravenous Daily IVPB Stopped at 04/29/25 114 DAPTOmycin (CUBICIN) 350 mg in sodium chloride 0.9% (NS) non-DEHP 50 mL IVPB 350 mg intravenous Q24H IVPB Stopped at 04/29/252152 insulin lispro 0-18 Units subcutaneous 4x Daily AC metoprolol succinate 50 mg oral Every Night 50 mg at 04/29/252124 metroNIDAZOLE 500 mg intravenous Q8H 500 mg at 04/30/25 0953 QUEtiapine 200 mg oral BID 200 mg at 04/30/25 0955 sodium chloride 10 mL intra-catheter Q8H 10 mL at 04/30/25 0506 [Held by provider] spironolactone 25 mg oral Every Night 25 mg at 04/24/252005 [Held by provider] valsartan 40 mg oral BID 40 mg at 04/24/252005 Continuous Infusions: Current Facility-Administered Medications Medication Dose Route Frequency Provider Last Rate Last Admin acetaminophen (TYLENOL) tablet 1,000 mg 1,000 mg oral Q6H PRN Te Hope PA-C aspirin EC tablet 325 mg 325 mg oral Every Night Te Hope PA-C 325 mg at 04/29/252124 atorvastatin (LIPITOR) tablet 40 mg 40 mg oral Every Night Te Hope PA-C 40 mg at 04/29/252124 cefTRIAXone (ROCEPHIN) 1 g in sodium chloride 0.9 % (NS) 50 mL SHANELLE IVPB 1 g intravenous Daily Te Hope PA-C IVPB Stopped at 04/29/25 1146 DAPTOmycin (CUBICIN) 350 mg in sodium chloride 0.9% (NS) non-DEHP 50 mL IVPB 350 mg intravenous Q24H Hudson Hilario, [employer] IVPB Stopped at 04/29/252152 dextrose 50% (D50W) injection 25 g 25 g intravenous Q15 Min PRN Te Hope PA-C glucagon injection 1 mg 1 mg intraMUSCULAR Q15 Min PRN Te Hope PA-C glucose chew tab 16 g 16 g oral Q15 Min PRN Te Hope PA-C hydrALAZINE (APRESOLINE) injection 10 mg 10 mg intravenous Q6H PRN Te Hope PA-C HYDROcodone-acetaminophen (NORCO) 7.5-325 mg per tablet 1 tablet 1 tablet oral Q6H PRN Te Hope PA-C 1 tablet at 04/30/25 0955 insulin lispro (HUMALOG, ADMELOG) injection 0-18 Units 0-18 Units subcutaneous 4x Daily AC Te Hope PA-C magnesium sulfate IVPB 2 g in sterile water 50 mL (premix) 2 g intravenous Daily PRN Te Hope PA-C magnesium sulfate IVPB 2 g in sterile water 50 mL (premix) 2 g intravenous BID PRN Te Hope PA-C melatonin tablet 3 mg 3 mg oral Every Night PRN Te Hope PA-C 3 mg at 04/24/252005 metoprolol succinate (TOPROL-XL) 24 hr tablet 50 mg 50 mg oral Every Night Te Hope PA-C 50 mg at 04/29/252124 metroNIDAZOLE (FLAGYL) IVPB 500 mg in sodium chloride 0.9 % 100 mL (premix) 500 mg intravenous Q8H Te Hope PA-C 100 mL/hr at 04/30/25 0953 500 mg at 04/30/25 0953 morphine injection 2 mg 2 mg intravenous Q6H PRN Te Hope PA-C 2 mg at 04/28/252023 naloxone (NARCAN) injection 0.2 mg 0.2 mg intravenous Q2 Min PRN Te Hope PA-C ondansetron (ZOFRAN-ODT) disintegrating tablet 4 mg 4 mg oral Q8H PRN Te Hope PA-C Or ondansetron (ZOFRAN) injection 4 mg 4 mg intravenous Q8H PRN Te Hope PA-C potassium chloride (KLOR-CON) ER tablet 40 mEq 40 mEq oral 4x Daily PRN Te Hope PA-C potassium chloride IVPB 10 mEq in 100 mL sterile water (premix) 10 mEq intravenous Q1H PRN Te Hope PA-C QUEtiapine (SEROquel) tablet 200 mg 200 mg oral BID Te Hope PA-C 200 mg at 04/30/25 0955 sodium chloride flush 10 mL 10 mL intravenous PRN Marixa Pennington, [employer] sodium chloride flush 10 mL 10 mL intra-catheter Q8H Murtaza Amato MD 10 mL at 04/30/25 0506 sodium chloride flush 10 mL 10 mL intra-catheter PRN Murtaza Amato MD [Held by provider] spironolactone (ALDACTONE) tablet 25 mg 25 mg oral Every Night Te Hope PA-C 25 mg at 04/24/252005 tiZANidine (ZANAFLEX) tablet 4 mg 4 mg oral Q8H PRN Te Hope PA-C 4 mg at 04/29/25 2131 [Held by provider] valsartan (DIOVAN) tablet 40 mg 40 mg oral BID Te Hope PA-C 40 mg at 04/24/252005 Review of Systems: As above Physical Exam: Vital Signs Temp: [97.3 ??F (36.3 ??C)-99 ??F (37.2 ??C)] 97.7 ??F (36.5 ??C) Pulse: [50-74] 67 Resp: [16-17] 16 BP: (105-127)/(74-83) 117/78 Blood pressure 117/78, pulse 67, temperature 97.7 ??F (36.5 ??C), resp. rate 16, height 1.753 m (5'9 ), weight 78.5 kg (173 lb), SpO2 99%. GENERAL: Awake and alert, in no distress. Sitting up in chair. HEENT: Normocephalic, atraumatic. EYES: No conjunctival injection. LUNGS: No respiratory distress, no use of accessory muscles. ABDOMEN: Soft, nontender, nondistended. Ostomy in place. Midline incision closed. LLQ dressing clean. SKIN: Warm and dry PSYCHIATRIC: Mental status lucid. No confusion. NEURO: Oriented, nonfocal Results Review: I reviewed the patient's new clinical results. Recent Labs Lab(s) Units 04/26/25 0338 04/25/25 0716 04/24/25 1607 WBC K/??L 8.6 9.1 11.8* HGB GM/DL 10.6* 10.0* 12.1* HCT % 33.4* 31.6* 38.1* PLT K/CU MM 425* 420* 597* Recent Labs Lab(s) Units 04/30/25 1026 04/26/25 0453 04/26/25 0338 NA meq/L -- -- 139 K meq/L -- -- 4.2 CL meq/L -- -- 109 CO2 meq/L -- -- 20* BUN mg/dL -- -- 10.7 CREATININE mg/dL -- -- 0.88 GLUCOSE mg/dL 118* < > 102 CALCIUM mg/dL -- -- 8.4 < > = values in this interval not displayed. Recent Labs Lab(s) Units 04/25/25 0421 ALKPHOS U/L 77 BILITOT mg/dL 0.3 ALT U/L <7 AST U/L 20 No results for input(s): SEDRATE in the last 168 hours. Recent Labs Lab(s) Units 04/25/25 0421 CRP mg/L 6.6* No results for input(s): VANCOTROUGH , VANCORANDOM in the last 168 hours. No results for input(s): LACTATE in the last 168 hours. Estimated Creatinine Clearance: 82.6 mL/min (by C-G formula based on SCr of 0.88 mg/dL). Microbiology: Microbiology Results (last 7 days) Procedure Component Value Units Date/Time Blood Culture [[id number]] Collected: 04/24/251606 Order Status: Completed Specimen: Blood Updated: 04/29/25 170 Result No growth in 5 days Blood Culture [[id number]] Collected: 04/24/251606 Order Status: Completed Specimen: Blood Updated: 04/29/25 1701 Result No growth in 5 days Radiology: Radiology Results (last 3 days) No results found for the last 72 hours. IMPRESSION: Left groin abscess with likely chronically infected or recurrently infected Garnett-Pablo mesh previously placed 2013, and in the late with history of recurrent infection per new history. 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 Organisms isolatedincluded Klebsiella, Enterococcus, Clostridium from 04/11 surgery. Partially treated after leaving AMA. Patient very resource constrained to participate in his care. Colovesical fistula repair 04/09/2025, related to above. Diabetes mellitus type 2 with increased risk for infection. Noncompliance, high risk given resource limitations. Patient stated he would have difficulty returning for follow-up appointments because he could not afford the gasoline. Previously left AMA from [facility] with Cordon in place and surgical drains in place. Anemia, chronic disease. Ongoing. PLAN: Diagnostically, continue to follow patient's physical exam, CBC, CMP, CRP, radiographic studies. CPK weekly while on daptomycin. Therapeutically, continue daptomycin, ceftriaxone, and metronidazole, with until 05/25/2025 and reassess. PICC line for long-term venous access. [facility]. Patient says he is unable to comply with treatment plan and will not return to clinic, nor will he comply with PICC care, as he does not have resources to pay for outpatient infusion. He declined remaining in the hospital to receive his therapy. He declined [facility] placement. Difficult situation. May have to discharge with oral therapy. Will continue to reassess daily. This visit included the following complex service elements: Complex medical decision-making associated with antimicrobial prescribing. In-depth chart review with high level synthesis for complex diagnoses. Theo Villagomez MD 04/30/2025 11:52 AM EDT * Zuhair Collier MD - 04/29/2025 12:50 PM EDT Images from the original note were not included. [facility] Progress Note Patient Name: Levar Rand : 1960 Date of Admission: 04/24/2025 Date of Service: 04/29/2025 PMD: Tay Vaca MD Hospital Course: 65 y.o. Yr old male with a history of diabetes mellitus type 2, essential hypertension, hyperlipidemia, ongoing smoking, perforated diverticulitis with Zina procedure 2011 with reversal 2011, incisional hernia status post ventral hernia repair with Garnett-Pablo 2013, and colovesical fistula. Possible need for pacemaker but held off because of fistula. The patient was admitted for an elective repair to [facility] 04/09/2025. He underwent surgery with Dr. Rebekah Lockhart, and Dr. Silva on 04/09/2025. There was no rebekah abscess or significant purulence noted. There was the presence of mesh noted from previous repairs of inguinal and abdominal hernias. Mesh was partially excised. The patient left AMA from hospital without a treatment course of antibiotics. He still had drainage surgical tubes in place and Cordon catheter. Patient was convinced by Dr. Lockhart on an outpatient visit to return to hospital for admission. Patient had had increasing abdominal pain. He has no other localizing signs or symptoms of infection. I was reconsulted on 04/25/2025. Consultants: Infectious disease Wound care Procedures: Wound care Anti-infectives: Ceftriaxone Daptomycin Flagyl. April 27, 2025 Chief Complaint: Follow-up patient with groin abscess and sepsis and infected groin mash since several days Subjective:/events of the last 24 hours Seen by infectious disease for left groin infection Patient have social issues regarding ability to return to the clinic and getting PICC line care andantibiotic till 05/25/2025. family preservation caseworker to help with arrangement for antibiotic and follow-ups Long discussion with infectious disease advise patient has infection with Enterococcus Klebsiella and Clostridium. Need antibiotics April 28, 2025: Chief Complaint: Follow-up patient with groin abscess and sepsis and infected groin mash since several days Subjective:/events of the last 24 hours Very long discussion with the patient regarding IV antibiotics and recommendation of infectious disease. Patient declines [facility]. He is concerned about his financial situation and payment for IV antibiotics Very long discussion with infectious disease: Advised to continue Continue daptomycin, ceftriaxone, and metronidazole, with until 05/25/2025 and reassess. PICC line for long-term venous access. April 29, 2025: Chief Complaint: Follow-up patient with groin abscess and sepsis and infected groin mash since several days Subjective:/events of the last 24 hours: Patient insists wants to go home take care of his financial issues send Long discussion with the patient advised he need IV antibiotics that he is more concerned about his dog Does not want his family to be involved in his care. Review Of Systems: GENERAL: Improving weakness and fatigue, no time is denies any weight loss appetite is decreased. HEENT: Denies any rhinitis, no sore throat, no diplopia , hearing is normal Respiratory: Denies any shortness of breath , sweating ,dyspnea on exertion , cough or sputum. CVS: Denies any chest pain , palpitation or syncope. Gi: No nausea, no vomiting, no diarrhea, no hematemesis , no melena , no rectal bleeding : No dysuria frequency , hematuria, no retention: Musculoskeletal: Denies any arthritis, or calf pain, complains of improving groin abscess and infection. Hematological: No bleeding , no petechiae. Skin: Denies rash , pruritus , jaundice, improving abscess and rash of the groin Endocrine: No polyuria , polydipsia , polyphagia. MOLD CLOSER: Denies any confusion , headache , or seizure disorder Psychiatry: No anxiety , or depression, no suicide ideation Objective: Vitals: 04/28/25201404/29/25 0155 04/29/25 0440 04/29/25 0930 BP: 117/83 108/74 101/66 110/78 BP Location: Right arm Right arm Patient Position: Lying Lying Pulse: 75 52 54 64 Resp: 16 16 16 16 Temp: 98.2 ??F (36.8 ??C) 97.3 ??F (36.3 ??C) 97.3 ??F (36.3 ??C) 97.9 ??F (36.6 ??C) TempSrc: Oral Oral Oral SpO2: 96% 94% 97% Weight: Height: Physical Exam: GENERAL APPEARANCE: Physical Exam Constitutional: Appearance: Normal appearance. He is normal weight. HENT: Head: Normocephalic and atraumatic. Nose: Nose normal. Mouth/Throat: Mouth: Mucous membranes are moist. Pharynx: Oropharynx is clear. Eyes: Extraocular Movements: Extraocular movements intact. Conjunctiva/sclera: Conjunctivae normal. Pupils: Pupils are equal, round, and reactive to light. Cardiovascular: Rate and Rhythm: Normal rate and regular rhythm. Pulses: Normal pulses. Heart sounds: Normal heart sounds. Pulmonary: Effort: Pulmonary effort is normal. Breath sounds: Normal breath sounds. Abdominal: General: Abdomen is flat. Bowel sounds are normal. Palpations: Abdomen is soft. Musculoskeletal: General: Normal range of motion. Cervical back: Normal range of motion and neck supple. Skin: General: Skin is warm and dry. Capillary Refill: Capillary refill takes less than 2 seconds., Improving abscess of the groin and the rash Neurological: General: No focal deficit present. Mental Status: He is alert and oriented to person, place, and time. Mental status is at baseline. Psychiatric: Mood and Affect: Mood normal. Normal Mental status. Normal Cranial Nervies. EOMI. GERONIMO. Normal 5/5 muscular strength in both upper and lower extremities. Normal sensation. Normal and symmetric reflexes. Normal cerbellar function. Normal Gait. Negative Babinski. Labs Reviewed CBC: Lab Results Component Value Date WBC 8.6 04/26/2025 HGB 10.6 (L) 04/26/2025 HCT 33.4 (L) 04/26/2025 MCV 86 04/26/2025 CMP: Lab Results Component Value Date NA 139 04/26/2025 CO2 20 (L) 04/26/2025 GLUCOSE 127 (H) 04/29/2025 BUN 10.7 04/26/2025 CREATININE 0.88 04/26/2025 ALBUMIN 2.6 (L) 04/25/2025 CALCIUM 8.4 04/26/2025 AST 20 04/25/2025 ALT <7 04/25/2025 Lipis Panel: No results found for: CHOL , HDL , LDLCALC , CHOLHDL INR: No results found for: INR , PT Cardiac: No results found for: CK , CKMB No results found for: BNP Lactate: No results found for: LACTATE Blood Culture: No components found for: CULT Imaging: XR chest AP portable Result Date: 04/24/2025 PORTABLE CHEST 04/24/2025 4:19 PM HISTORY: Sepsis. COMPARISON: April 11, 2025. FINDINGS: The heart is normal in size. The patient is status post sternotomy for CABG. The mediastinum is unremarkable. The lungs are clear. There is no pneumothorax. No acute cardiopulmonary process. Images reviewed, interpreted, and dictated by Dr. Davi Perez. Transcribed by [facility] CT ABDOMEN/PELVIS WITH IV CONTRAST Standard Protocol Result Date: 04/15/2025 CT SCAN OF THE ABDOMEN AND PELVIS WITH CONTRAST HISTORY: Bladder fistula, mass. PROCEDURE: Axial CTimages were obtained from the lung bases to the pubic symphysis with IV contrast administration. Oral contrast was also given. Coronal and sagittal reformatted images were also obtained and reviewed.This study was performed with techniques to keep radiation doses as low as reasonably achievable, (ALARA). Individualized dose reduction techniques using automated exposure control or adjustment of mA and/or kV according to the patient size were employed. COMPARISON: April 11, 2025. FINDINGS: LOWERCHEST: The heart is normal in size. Mild [...] renal cysts are present. No hydronephrosis. A Cordon catheter is present in the bladder. There [...] abdomen and pelvic wall. No significant body wallhernias. Mild anasarca is noted. Bones: No acute fracture. Bilateral L5 pars defects are seen with grade 1 anterolisthesis of L5 on S1. Moderate degenerative changes are noted in the spine. Interval placement of a left pelvic drain [...] as low as reasonably achievable, (ALARA). Individualized dosereduction techniques using automated exposure control or adjustment [...] second left pelvic drain is present. A Cordon catheter is present in the bladder. Postoperative changes are seen in the distal sigmoid colon. There is no evidenceof bowel obstruction. No acute bony abnormality is identified. Degenerative changes are noted in the lower lumbar spine. There are bilateral L5 pars defects. IMPRESSION: Contrast leakage from the anterior bladder to the left lateral lower pelvic fluid collection consistent with a fistula. A drain is present within the left lower pelvis fluid collection with significant improvement since the priorCT. Images reviewed, interpreted, and dictated by Gunnar De La Paz MD CT pelvis without IV contrast Result Date: 04/15/2025 CT SCAN OF THE ABDOMEN AND PELVIS WITH CONTRAST HISTORY: Bladder fistula, mass. PROCEDURE: Axial CTimages were obtained from the lung bases to the pubic symphysis with IV contrast administration. Oral contrast was also given. Coronal and sagittal reformatted images were also obtained and reviewed.This study was performed with techniques to keep radiation doses as low as reasonably achievable, (ALARA). Individualized dose reduction techniques using automated exposure control or adjustment of mA and/or kV according to the patient size were employed. COMPARISON: April 11, 2025. FINDINGS: LOWERCHEST: The heart is normal in size. Mild [...] renal cysts are present. No hydronephrosis. A Cordon catheter is present in the bladder. There [...] abdomen and pelvic wall. No significant body wallhernias. Mild anasarca is noted. Bones: No acute fracture. Bilateral L5 pars defects are seen with grade 1 anterolisthesis of L5 on S1. Moderate degenerative changes are noted in the spine. Interval placement of a left pelvic drain [...] as low as reasonably achievable, (ALARA). Individualized dosereduction techniques using automated exposure control or adjustment [...] second left pelvic drain is present. A Cordon catheter is present in the bladder. Postoperative changes are seen in the distal sigmoid colon. There is no evidenceof bowel obstruction. No acute bony abnormality is identified. Degenerative changes are noted in the lower lumbar spine. There are bilateral L5 pars defects. IMPRESSION: Contrast leakage from the anterior bladder to the left lateral lower pelvic fluid collection consistent with a fistula. A drain is present within the left lower pelvis fluid collection with significant improvement since the priorCT. Images reviewed, interpreted, and dictated by Gunnar De La Paz MD CT DRAINAGE PERITONEAL/RETROPERITONEAL W GUIDANCE Result Date: 04/11/2025 CT GUIDED DRAIN PLACEMENT HISTORY: Left groin abscess. . ATTENDING RADIOLOGIST: Dr. Gaviria. PHYSICIAN PRODUCT SAFETY TESTER: Jean Pierre Hughes PA-C. PROCEDURE: After informed consent was obtained and a time-out was performed, the patient was prepped and draped in the usual sterile fashion over the left groin. Utilizing local anesthesia and sterile technique with a catheter access needle, access to the fluid collection was obtained under direct CT guidance. An Amplatz wire was placed. Serial dilatation was performed. A 10 Armenian pigtail catheter was placed looped in the [...] process. Overall sedation time was [address] guided percutaneous drain placement without immediate complication. Sample of the fluid was sent to lab for cultures. Images reviewed, interpreted, and dictated by Dr. Roro Gaviria. Transcribed by Jean Pierre Hughes PA-C XR chest AP portable Result Date: 04/11/2025 PORTABLE CHEST 04/11/2025 11:00 AM HISTORY: Shortness of air COMPARISON: April 09, 2025 FINDINGS: Thepatient is status post median sternotomy. The heart is stable in size. The lung sanchez demonstrate no significant change. There is no pneumothorax. The support devices are in good position. There has been no significant interval change. Continued follow up recommended. Images reviewed, interpreted, and dictated by Dr. Roro Gaviria. Transcribed by Giovany Meza PA-C. CT ABDOMEN/PELVIS WITH IV CONTRAST Standard Protocol Result Date: 04/11/2025 CT SCAN OF THE ABDOMEN AND PELVIS WITH CONTRAST; 04/11/2025 9:34 AM HISTORY: Epigastric pain. COMPARISON: January 2018. PROCEDURE: The patient was injected with IV contrast. Axial images were obtained fromthe lung bases to the pubic symphysis by [...] bilateral L5 pars defects. There is mild bi basilar atelectasis. There is a gallstone in the gallbladder. There is perinephric stranding bilaterally. There are peripelvic cysts bilaterally. There is a simple cyst projecting off the superior aspect of the right kidney. The solid organs are otherwise unremarkable. There is mesh in the anteriorabdominal wall. There are skin alexandro in the anterior abdominal wall. There is trace ascites and free intraperitoneal air. There is a right abdominal ostomy. There is a ventral hernia in the anterior left abdomen containing a small amount of fluid and free air. PELVIS: The urinary bladder is decompressed by a Cordon. There is flocculent fluid and debris extending into the left inguinal canal, likely representing an abscess. There is stranding in the anterior abdominal wall. Status post sigmoid colon resection. The appendix is not identified. The bowel loops are mildly distended. There is presacral stranding and fluid. There is stranding in the right inguinal canal. A surgical drain is looped in the pelvis. Minimal free fluid and free air, consistent with recent operative intervention. Perinephric stranding is nonspecific but pyelonephritis is not excluded. Loculated fluid collection in the left inguinal canal could represent an abscess. Images reviewed, interpreted, and dictated by Roro Gaviria MD XR chest AP portable Result Date: 04/10/2025 PORTABLE CHEST 04/09/2025 8:38 PM HISTORY: [...] side port terminates at the gastroesophageal junction. Interval placement of nasogastric tube. Side port terminates at the GE junction. Mild increased interstitial markings may represent mild edema. Images reviewed, interpreted, and dictated by Dr. Jeanie Melton. Transcribed by Jean Pierre Hughes PA-C Medications Reviewed: aspirin 325 mg oral Every Night 325 mg at 04/28/252014 atorvastatin 40 mg oral Every Night 40 mg at 04/28/252014 cefTRIAXone 1 g intravenous Daily IVPB Stopped at 04/29/25 1146 DAPTOmycin (CUBICIN) 350 mg in sodium chloride 0.9% (NS) non-DEHP 50 mL IVPB 350 mg intravenous Q24H IVPB Stopped at 04/28/25 2100 insulin lispro 0-18 Units subcutaneous 4x Daily AC metoprolol succinate 50 mg oral Every Night 50 mg at 04/28/252014 metroNIDAZOLE 500 mg intravenous Q8H IVPB Stopped at 04/29/25 1026 QUEtiapine 200 mg oral BID 200 mg at 04/29/25 0922 sodium chloride 10 mL intra-catheter Q8H 10 mL at 04/29/25 1212 [Held by provider] spironolactone 25 mg oral Every Night 25 mg at 04/24/252005 [Held by provider] valsartan 40 mg oral BID 40 mg at 04/24/252005 Assessment/Plan: Patient Active Problem List Diagnosis Date Noted Sepsis (HCC) 04/24/2025 Diverticulitis of colon with perforation 04/09/2025 Anxiety 04/06/2025 Depression 04/06/2025 Heart failure (HCC) 04/06/2025 Coronary artery disease involving autologous artery coronary bypass graft 03/12/2025 Diabetes mellitus, type 2 (HCC) 03/12/2025 Current every day smoker 03/12/2025 Hyperlipidemia 03/12/2025 Osteoarthritis 06/21/2017 Medical decision making: Infected groin mesh with abscess: Continue daptomycin, ceftriaxone, and metronidazole, with until 05/25/2025 and reassess. Placed PICCline for long-term venous access. Patient is status post to go home to take care of his financial issues and dog and Strongly advisedcannot leave until IV antibiotics are arranged. Long discussion with the patient in presence of RN Also discussed with social worker clinical spoken to him several times. Pt declines [facility]. 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 .Informed pt would inform providers of his decision. made aware. Advised by infectious disease: Medication/Dose/Route/Frequency: Daptomycin 500 mg IV daily, ceftriaxone 2 g IV daily, metronidazole 500 mg p.o. 3 times daily. End Date: 05/25/2025 diagnosis: Left groin abscess and mesh infection with Enterococcus, Klebsiella,Clostridium status post previous resection of infected mesh 04/11/2025, and repair of colovesical fistula Labs Needed and Frequency: CBC with differential, CMP, CRP, CPK weekly while on IV antibiotics. Access existing central venous access device or insert peripheral IV as needed.: Ordered: CBC [facility] Social service for arranging for IV antibiotics and discharge planning Daptomycin Flagyl Ceftriaxone Sepsis with leukocytosis secondary to left inguinal groin infected mesh with vesico-cutaneous fistula: Seen by surgery advise IV antibiotics referral to [facility] and infectious disease: [facility] and urologic procedures. Type 2 diabetes mellitus: Blood sugar ACHS Sliding scale CAD status post bypass Asymptomatic Continue home medication Hyperlipidemia: Continue statins Osteoarthritis: Continue pain control Anxiety disorder with major depression: Continue SSRI DVT Prophylaxis: SCUDs. CODE STATUS: Full code Reason for continued hospitalization and medical necessity: Patient with infected mesh with fistula requiring further management Orders today CBC CMP Social service for arranging for IV antibiotics and discharge planning Daptomycin Flagyl Ceftriaxone Time spent: 34 minute not only including [id number] rounding putting in the orders writing the note and all the conversation reviewing the records This cook dinner was electronically signed. It was dictated by use of voice recognition software and electronically transcribed. The cook dinner may contain errors not detected in proofreading. Disposition: To be determined Seen by 7th grade social studies teacher advised: Pt declines [facility]. 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 .Informed pt would inform providers of his decision. This has been electronically signed by: Zuhair Collier MD.[email or web address].[facility] inpatient inpatient Specialists 04/29/2025 * Zuhair Collier MD - 04/28/2025 11:53 AM EDT Images from the original note were not included. [facility] Progress Note Patient Name: Levar Rand : 1960 Date of Admission: 04/24/2025 Date of Service: 04/28/2025 PMD: Tay Vaca MD Hospital Course: 65 y.o. Yr old male with a history of diabetes mellitus type 2, essential hypertension, hyperlipidemia, ongoing smoking, perforated diverticulitis with Zina procedure 2011 with reversal 2011, incisional hernia status post ventral hernia repair with Garnett-Pablo 2013, and colovesical fistula. Possible need for pacemaker but held off because of fistula. The patient was admitted for an elective repair to [facility] 04/09/2025. He underwent surgery with Dr. Rebekah Lockhart, and Dr. Silva on 04/09/2025. There was no rebekah abscess or significant purulence noted. There was the presence of mesh noted from previous repairs of inguinal and abdominal hernias. Mesh was partially excised. The patient left AMA from hospital without a treatment course of antibiotics. He still had drainage surgical tubes in place and Cordon catheter. Patient was convinced by Dr. Lockhart on an outpatient visit to return to hospital for admission. Patient had had increasing abdominal pain. He has noother localizing signs or symptoms of infection. I was reconsulted on 04/25/2025. Consultants: Infectious disease Wound care Procedures: Wound care Anti-infectives: Ceftriaxone Daptomycin Flagyl. April 27, 2025 Chief Complaint: Follow-up patient with groin abscess and sepsis and infected groin mash since several days Subjective:/events of the last 24 hours Seen by infectious disease for left groin infection Patient have social issues regarding ability to return to the clinic and getting PICC line care andantibiotic till 05/25/2025. family preservation caseworker to help with arrangement for antibiotic and follow-ups Long discussion with infectious disease advise patient has infection with Enterococcus Klebsiella and Clostridium. Need antibiotics April 28, 2025: Chief Complaint: Follow-up patient with groin abscess and sepsis and infected groin mash since several days Subjective:/events of the last 24 hours Very long discussion with the patient regarding IV antibiotics and recommendation of infectious disease. Patient declines [facility] [place]. He is concerned about his financial situation and payment for IV antibiotics Very long discussion with infectious disease: Advised to continue continue daptomycin, ceftriaxone, and metronidazole, with until 05/25/2025 and reassess. PICC line for long-term venous access. Then reassess. Review Of Systems: GENERAL: Improving weakness and fatigue, no time is denies any weight loss appetite is normal. HEENT: Denies any rhinitis, no sore throat, no diplopia , hearing is normal Respiratory: Denies any shortness of breath , sweating ,dyspnea on exertion , cough or sputum. CVS: Denies any chest pain , palpitation or syncope. Gi: No nausea, no vomiting, no diarrhea, no hematemesis , no melena , no rectal bleeding : No dysuria frequency , hematuria, no retention: Musculoskeletal: Denies any arthritis, or calf pain, complains of groin abscess and infection Hematological: No bleeding , no petechiae. Skin: Denies rash , pruritus , jaundice, abscess and rash of the groin Endocrine: No polyuria , polydipsia , polyphagia. MOLD CLOSER: Denies any confusion , headache , or seizure disorder Psychiatry: No anxiety , or depression, no suicide ideation Objective: Vitals: 04/27/25202404/28/25 0055 04/28/25 0445 04/28/25 0910 BP: 102/74 91/53 108/76 107/63 BP Location: Right arm Right arm Right arm Patient Position: Lying Lying Lying Pulse: 80 64 61 61 Resp: 16 16 16 16 Temp: 98.4 ??F (36.9 ??C) 98.1 ??F (36.7 ??C) 97.7 ??F (36.5 ??C) 98.1 ??F (36.7 ??C) TempSrc: Oral Oral Oral SpO2: 97% 94% 96% 96% Weight: Height: Physical Exam: GENERAL APPEARANCE: Physical Exam Constitutional: Appearance: Normal appearance. He is normal weight. HENT: Head: Normocephalic and atraumatic. Nose: Nose normal. Mouth/Throat: Mouth: Mucous membranes are dry. Pharynx: Oropharynx is clear. Eyes: Extraocular Movements: Extraocular movements intact. Conjunctiva/sclera: Conjunctivae normal. Pupils: Pupils are equal, round, and reactive to light. Cardiovascular: Rate and Rhythm: Normal rate and regular rhythm. Pulses: Normal pulses. Heart sounds: Normal heart sounds. Pulmonary: Effort: Pulmonary effort is normal. Breath sounds: Normal breath sounds. Abdominal: General: Abdomen is flat. Bowel sounds are normal. Palpations: Abdomen is soft. Musculoskeletal: General: Normal range of motion. Cervical back: Normal range of motion and neck supple. Skin: General: Skin is warm and dry. Capillary Refill: Capillary refill takes less than 2 seconds., Abscess of the groin and the rash Neurological: General: No focal deficit present. Mental Status: He is alert and oriented to person, place, and time. Mental status is at baseline. Psychiatric: Mood and Affect: Mood normal. Normal Mental status. Normal Cranial Nervies. EOMI. GERONIMO. Normal 5/5 muscular strength in both upper and lower extremities. Normal sensation. Normal and symmetric reflexes. Normal cerbellar function. Normal Gait. Negative Babinski. Labs Reviewed CBC: Lab Results Component Value Date WBC 8.6 04/26/2025 HGB 10.6 (L) 04/26/2025 HCT 33.4 (L) 04/26/2025 MCV 86 04/26/2025 CMP: Lab Results Component Value Date NA 139 04/26/2025 CO2 20 (L) 04/26/2025 GLUCOSE 123 (H) 04/28/2025 BUN 10.7 04/26/2025 CREATININE 0.88 04/26/2025 ALBUMIN 2.6 (L) 04/25/2025 CALCIUM 8.4 04/26/2025 AST 20 04/25/2025 ALT <7 04/25/2025 Lipis Panel: No results found for: CHOL , HDL , LDLCALC , CHOLHDL INR: No results found for: INR , PT Cardiac: No results found for: CK , CKMB No results found for: BNP Lactate: No results found for: LACTATE Blood Culture: No components found for: CULT Imaging: XR chest AP portable Result Date: 04/24/2025 PORTABLE CHEST 04/24/2025 4:19 PM HISTORY: Sepsis. COMPARISON: April 11, 2025. FINDINGS: The heart is normal in size. The patient is status post sternotomy for CABG. The mediastinum is unremarkable. The lungs are clear. There is no pneumothorax. No acute cardiopulmonary process. Images reviewed, interpreted, and dictated by Dr. Davi Perez. Transcribed by [facility] CT ABDOMEN/PELVIS WITH IV CONTRAST Standard Protocol Result Date: 04/15/2025 CT SCAN OF THE ABDOMEN AND PELVIS WITH CONTRAST HISTORY: Bladder fistula, mass. PROCEDURE: Axial CTimages were obtained from the lung bases to the pubic symphysis with IV contrast administration. Oral contrast was also given. Coronal and sagittal reformatted images were also obtained and reviewed.This study was performed with techniques to keep radiation doses as low as reasonably achievable, (ALARA). Individualized dose reduction techniques using automated exposure control or adjustment of mA and/or kV according to the patient size were employed. COMPARISON: April 11, 2025. FINDINGS: LOWERCHEST: The heart is normal in size. Mild [...] renal cysts are present. No hydronephrosis. A Cordon catheter is present in the bladder. There [...] abdomen and pelvic wall. No significant body wallhernias. Mild anasarca is noted. Bones: No acute fracture. Bilateral L5 pars defects are seen with grade 1 anterolisthesis of L5 on S1. Moderate degenerative changes are noted in the spine. Interval placement of a left pelvic drain [...] as low as reasonably achievable, (ALARA). Individualized dosereduction techniques using automated exposure control or adjustment [...] second left pelvic drain is present. A Cordon catheter is present in the bladder. Postoperative changes are seen in the distal sigmoid colon. There is no evidenceof bowel obstruction. No acute bony abnormality is identified. Degenerative changes are noted in the lower lumbar spine. There are bilateral L5 pars defects. IMPRESSION: Contrast leakage from the anterior bladder to the left lateral lower pelvic fluid collection consistent with a fistula. A drain is present within the left lower pelvis fluid collection with significant improvement since the priorCT. Images reviewed, interpreted, and dictated by Gunnar De La Paz MD CT pelvis without IV contrast Result Date: 04/15/2025 CT SCAN OF THE ABDOMEN AND PELVIS WITH CONTRAST HISTORY: Bladder fistula, mass. PROCEDURE: Axial CTimages were obtained from the lung bases to the pubic symphysis with IV contrast administration. Oral contrast was also given. Coronal and sagittal reformatted images were also obtained and reviewed.This study was performed with techniques to keep radiation doses as low as reasonably achievable, (ALARA). Individualized dose reduction techniques using automated exposure control or adjustment of mA and/or kV according to the patient size were employed. COMPARISON: April 11, 2025. FINDINGS: LOWERCHEST: The heart is normal in size. Mild [...] renal cysts are present. No hydronephrosis. A Cordon catheter is present in the bladder. There [...] abdomen and pelvic wall. No significant body wallhernias. Mild anasarca is noted. Bones: No acute fracture. Bilateral L5 pars defects are seen with grade 1 anterolisthesis of L5 on S1. Moderate degenerative changes are noted in the spine. Interval placement of a left pelvic drain [...] as low as reasonably achievable, (ALARA). Individualized dosereduction techniques using automated exposure control or adjustment [...] second left pelvic drain is present. A Cordon catheter is present in the bladder. Postoperative changes are seen in the distal sigmoid colon. There is no evidenceof bowel obstruction. No acute bony abnormality is identified. Degenerative changes are noted in the lower lumbar spine. There are bilateral L5 pars defects. IMPRESSION: Contrast leakage from the anterior bladder to the left lateral lower pelvic fluid collection consistent with a fistula. A drain is present within the left lower pelvis fluid collection with significant improvement since the priorCT. Images reviewed, interpreted, and dictated by Gunnar De La Paz MD CT DRAINAGE PERITONEAL/RETROPERITONEAL W GUIDANCE Result Date: 04/11/2025 CT GUIDED DRAIN PLACEMENT HISTORY: Left groin abscess. . ATTENDING RADIOLOGIST: Dr. Gaviria. PHYSICIAN PRODUCT SAFETY TESTER: Jean Pierre Hughes PA-C. PROCEDURE: After informed consent was obtained and a time-out was performed, the patient was prepped and draped in the usual sterile fashion over the left groin. Utilizing local anesthesia and sterile technique with a catheter access needle, access to the fluid collection was obtained under direct CT guidance. An Amplatz wire was placed. Serial dilatation was performed. A 10 Armenian pigtail catheter was placed looped in the [...] process. Overall sedation time was [address] guided percutaneous drain placement without immediate complication. Sample of the fluid was sent to lab for cultures. Images reviewed, interpreted, and dictated by Dr. Roro Gaviria. Transcribed by Jean Pierre Hughes PA-C XR chest AP portable Result Date: 04/11/2025 PORTABLE CHEST 04/11/2025 11:00 AM HISTORY: Shortness of air COMPARISON: April 09, 2025 FINDINGS: Thepatient is status post median sternotomy. The heart is stable in size. The lung sanchez demonstrate no significant change. There is no pneumothorax. The support devices are in good position. There has been no significant interval change. Continued follow up recommended. Images reviewed, interpreted, and dictated by Dr. Roro Gaviria. Transcribed by Giovany Meza PA-C. CT ABDOMEN/PELVIS WITH IV CONTRAST Standard Protocol Result Date: 04/11/2025 CT SCAN OF THE ABDOMEN AND PELVIS WITH CONTRAST; 04/11/2025 9:34 AM HISTORY: Epigastric pain. COMPARISON: January 2018. PROCEDURE: The patient was injected with IV contrast. Axial images were obtained fromthe lung bases to the pubic symphysis by [...] bilateral L5 pars defects. There is mild bi basilar atelectasis. There is a gallstone in the gallbladder. There is perinephric stranding bilaterally. There are peripelvic cysts bilaterally. There is a simple cyst projecting off the superior aspect of the right kidney. The solid organs are otherwise unremarkable. There is mesh in the anteriorabdominal wall. There are skin alexandro in the anterior abdominal wall. There is trace ascites and free intraperitoneal air. There is a right abdominal ostomy. There is a ventral hernia in the anterior left abdomen containing a small amount of fluid and free air. PELVIS: The urinary bladder is decompressed by a Cordon. There is flocculent fluid and debris extending into the left inguinal canal, likely representing an abscess. There is stranding in the anterior abdominal wall. Status post sigmoid colon resection. The appendix is not identified. The bowel loops are mildly distended. There is presacral stranding and fluid. There is stranding in the right inguinal canal. A surgical drain is looped in the pelvis. Minimal free fluid and free air, consistent with recent operative intervention. Perinephric stranding is nonspecific but pyelonephritis is not excluded. Loculated fluid collection in the left inguinal canal could represent an abscess. Images reviewed, interpreted, and dictated by Roro Gaviria MD XR chest AP portable Result Date: 04/10/2025 PORTABLE CHEST 04/09/2025 8:38 PM HISTORY: [...] side port terminates at the gastroesophageal junction. Interval placement of nasogastric tube. Side port terminates at the GE junction. Mild increased interstitial markings may represent mild edema. Images reviewed, interpreted, and dictated by Dr. Jeanie Melton. Transcribed by Jean Pierre Hughes PA-C Medications Reviewed: aspirin 325 mg oral Every Night 325 mg at 04/27/252046 atorvastatin 40 mg oral Every Night 40 mg at 04/27/252046 cefTRIAXone 1 g intravenous Daily IVPB Stopped at 04/28/25 1129 DAPTOmycin (CUBICIN) 350 mg in sodium chloride 0.9% (NS) non-DEHP 50 mL IVPB 350 mg intravenous Q24H IVPB Stopped at 04/27/25 2132 insulin lispro 0-18 Units subcutaneous 4x Daily AC metoprolol succinate 50 mg oral Every Night 50 mg at 04/27/252046 metroNIDAZOLE 500 mg intravenous Q8H IVPB Stopped at 04/28/25 1040 QUEtiapine 200 mg oral BID 200 mg at 04/28/25 0912 sodium chloride 10 mL intra-catheter Q8H 10 mL at 04/28/25 0548 [Held by provider] spironolactone 25 mg oral Every Night 25 mg at 04/24/252005 [Held by provider] valsartan 40 mg oral BID 40 mg at 04/24/252005 Assessment/Plan: Patient Active Problem List Diagnosis Date Noted Sepsis ([facility]) 04/24/2025 Diverticulitis of colon with perforation 04/09/2025 Anxiety 04/06/2025 Depression 04/06/2025 Heart failure ([facility]) 04/06/2025 Coronary artery disease involving autologous artery coronary bypass graft 03/12/2025 Diabetes mellitus, type 2 ([facility]) 03/12/2025 Current every day smoker 03/12/2025 Hyperlipidemia 03/12/2025 Osteoarthritis 06/21/2017 Medical decision making: Infected groin mesh with abscess Continue daptomycin, ceftriaxone, and metronidazole, with until 05/25/2025 and reassess. PICC line for long-term venous access. Then reassess. Advised by infectious disease: Medication/Dose/Route/Frequency: Daptomycin 500 mg IV daily, ceftriaxone 2 g IV daily, metronidazole 500 mg p.o. 3 times daily End Date: 05/25/2025 diagnosis: Left groin abscess and mesh infection with Enterococcus, Klebsiella,Clostridium status post previous resection of infected mesh 04/11/2025, and repair of colovesical fistula Labs Needed and Frequency: CBC with differential, CMP, CRP, CPK weekly while on IV antibiotics. I approve us of standard hypersensitivity medications: Access existing central venous access device or insert peripheral IV as needed. Restart peripheral IV catheter (as needed) for any signs of redness, pain, swelling. CBC CMP Social service for arranging for IV antibiotics and discharge planning Daptomycin Flagyl Ceftriaxone Sepsis with leukocytosis secondary to left inguinal groin infected mesh with vesico-cutaneous fistula: Seen by surgery advise IV antibiotics referral to [facility] and infectious disease:Patient will need further evaluation by surgical services potentially at the [facility] for his complex Garnett-Pablo mesh revision and urologic procedures. Type 2 diabetes mellitus: Blood sugar ACHS Sliding scale CAD status post bypass Asymptomatic Continue home medication Hyperlipidemia: Continue statins Osteoarthritis: Continue pain control Anxiety disorder with major depression: Continue SSRI DVT Prophylaxis: SCUDs CODE STATUS: Full code Reason for continued hospitalization and medical necessity: Patient with infected mesh with fistula requiring further management Orders today CBC CMP Social service for arranging for IV antibiotics and discharge planning Daptomycin Flagyl Ceftriaxone Time spent: 37 minute not only including [id number] rounding putting in the orders writing the note and all the conversation reviewing the records This cook dinner was electronically signed. It was dictated by use of voice recognition software and electronically transcribed. The cook dinner may contain errors not detected in proofreading. Disposition: To be determined Seen by 7th grade social studies teacher advised: Pt declines [facility]. 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 .Informed pt would inform providers of his decision. made aw This has been electronically signed by: Zuhair Collier MD.[email or web address] [place] [facility] 04/28/2025 * Zuhair Collier MD - 04/27/2025 3:41 PM EDT Images from the original note were not included. [facility] Progress Note Patient Name: Levar Rand : 1960 Date of Admission: 04/24/2025 Date of Service: 04/27/2025 PMD: Tay Vaca MD Hospital Course: 65 y.o. Yr old male with a history of diabetes mellitus type 2, essential hypertension, hyperlipidemia, ongoing smoking, perforated diverticulitis with Zina procedure 2011 with reversal 2011, incisional hernia status post ventral hernia repair with Garnett-Pablo 2013, and colovesical fistula. Possible need for pacemaker but held off because of fistula. The patient was admitted for an elective repair to [facility] 04/09/2025. He underwent surgery with Dr. Rebekah Lockhart, and Dr. Silva on 04/09/2025. There was no rebekah abscess or significant purulence noted. There was the presence of mesh noted from previous repairs of inguinal and abdominal hernias. Mesh was partially excised. The patient left AMA from hospital without a treatment course of antibiotics. He still had drainage surgical tubes in place and Cordon catheter. Patient was convinced by Dr. Lockhart on an outpatient visit to return to hospital for admission. Patient had had increasing abdominal pain. He has noother localizing signs or symptoms of infection. I was reconsulted on 04/25/2025. Consultants: Infectious disease Wound care Procedures: Wound care Anti-infectives: Ceftriaxone Daptomycin Flagyl. April 27, 2025 Chief Complaint: Follow-up patient with groin abscess and sepsis and infected groin mash since several days Subjective: Seen by infectious disease for left groin infection Patient have social issues regarding ability to return to the clinic and getting PICC line care andantibiotic till 05/25/2025. family preservation caseworker to help with arrangement for antibiotic and follow-ups Long discussion with infectious disease advise patient has infection with Enterococcus Klebsiella and Clostridium. Need antibiotics Review Of Systems: GENERAL: Weakness and fatigue, no time is denies any weight loss appetite is normal. HEENT: Denies any rhinitis, no sore throat, no diplopia , hearing is normal Respiratory: Denies any shortness of breath , sweating ,dyspnea on exertion , cough or sputum. CVS: Denies any chest pain , palpitation or syncope. Gi: No nausea, no vomiting, no diarrhea, no hematemesis , no melena , no rectal bleeding : No dysuria frequency , hematuria, no retention: Musculoskeletal: Denies any arthritis, or calf pain, complains of groin abscess and infection Hematological: No bleeding , no petechiae. Skin: Denies rash , pruritus , jaundice, abscess and rash of the groin Endocrine: No polyuria , polydipsia , polyphagia. MOLD CLOSER: Denies any confusion , headache , or seizure disorder Psychiatry: No anxiety , or depression, no suicide ideation Objective: Vitals: 04/27/25 1137 04/27/25 1138 04/27/25 1145 04/27/25 1152 BP: 92/57 112/62 Pulse: 64 67 73 68 Resp: Temp: TempSrc: SpO2: 96% 95% 94% 97% Weight: Height: Physical Exam: GENERAL APPEARANCE: Physical Exam Constitutional: Appearance: Normal appearance. He is normal weight. HENT: Head: Normocephalic and atraumatic. Nose: Nose normal. Mouth/Throat: Mouth: Mucous membranes are dry. Pharynx: Oropharynx is clear. Eyes: Extraocular Movements: Extraocular movements intact. Conjunctiva/sclera: Conjunctivae normal. Pupils: Pupils are equal, round, and reactive to light. Cardiovascular: Rate and Rhythm: Normal rate and regular rhythm. Pulses: Normal pulses. Heart sounds: Normal heart sounds. Pulmonary: Effort: Pulmonary effort is normal. Breath sounds: Normal breath sounds. Abdominal: General: Abdomen is flat. Bowel sounds are normal. Palpations: Abdomen is soft. Musculoskeletal: General: Normal range of motion. Cervical back: Normal range of motion and neck supple. Skin: General: Skin is warm and dry. Capillary Refill: Capillary refill takes less than 2 seconds., Abscess of the groin and the rash Neurological: General: No focal deficit present. Mental Status: He is alert and oriented to person, place, and time. Mental status is at baseline. Psychiatric: Mood and Affect: Mood normal. Normal Mental status. Normal Cranial Nervies. EOMI. GERONIMO. Normal 5/5 muscular strength in both upper and lower extremities. Normal sensation. Normal and symmetric reflexes. Normal cerbellar function. Normal Gait. Negative Babinski. Labs Reviewed CBC: Lab Results Component Value Date WBC 8.6 04/26/2025 HGB 10.6 (L) 04/26/2025 HCT 33.4 (L) 04/26/2025 MCV 86 04/26/2025 CMP: Lab Results Component Value Date NA 139 04/26/2025 CO2 20 (L) 04/26/2025 GLUCOSE 93 04/27/2025 BUN 10.7 04/26/2025 CREATININE 0.88 04/26/2025 ALBUMIN 2.6 (L) 04/25/2025 CALCIUM 8.4 04/26/2025 AST 20 04/25/2025 ALT <7 04/25/2025 Lipis Panel: No results found for: CHOL , HDL , LDLCALC , CHOLHDL INR: No results found for: INR , PT Cardiac: No results found for: CK , CKMB No results found for: BNP Lactate: No results found for: LACTATE Blood Culture: No components found for: CULT Imaging: XR chest AP portable Result Date: 04/24/2025 PORTABLE CHEST 04/24/2025 4:19 PM HISTORY: Sepsis. COMPARISON: April 11, 2025. FINDINGS: The heart is normal in size. The patient is status post sternotomy for CABG. The mediastinum is unremarkable. The lungs are clear. There is no pneumothorax. No acute cardiopulmonary process. Images reviewed, interpreted, and dictated by Dr. Davi Perez. Transcribed by [facility] CT ABDOMEN/PELVIS WITH IV CONTRAST Standard Protocol Result Date: 04/15/2025 CT SCAN OF THE ABDOMEN AND PELVIS WITH CONTRAST HISTORY: Bladder fistula, mass. PROCEDURE: Axial CTimages were obtained from the lung bases to the pubic symphysis with IV contrast administration. Oral contrast was also given. Coronal and sagittal reformatted images were also obtained and reviewed.This study was performed with techniques to keep radiation doses as low as reasonably achievable, (ALARA). Individualized dose reduction techniques using automated exposure control or adjustment of mA and/or kV according to the patient size were employed. COMPARISON: April 11, 2025. FINDINGS: LOWERCHEST: The heart is normal in size. Mild [...] renal cysts are present. No hydronephrosis. A Cordon catheter is present in the bladder. There [...] abdomen and pelvic wall. No significant body wallhernias. Mild anasarca is noted. Bones: No acute fracture. Bilateral L5 pars defects are seen with grade 1 anterolisthesis of L5 on S1. Moderate degenerative changes are noted in the spine. Interval placement of a left pelvic drain [...] as low as reasonably achievable, (ALARA). Individualized dosereduction techniques using automated exposure control or adjustment [...] second left pelvic drain is present. A Cordon catheter is present in the bladder. Postoperative changes are seen in the distal sigmoid colon. There is no evidenceof bowel obstruction. No acute bony abnormality is identified. Degenerative changes are noted in the lower lumbar spine. There are bilateral L5 pars defects. IMPRESSION: Contrast leakage from the anterior bladder to the left lateral lower pelvic fluid collection consistent with a fistula. A drain is present within the left lower pelvis fluid collection with significant improvement since the priorCT. Images reviewed, interpreted, and dictated by Gunnar De La Paz MD CT pelvis without IV contrast Result Date: 04/15/2025 CT SCAN OF THE ABDOMEN AND PELVIS WITH CONTRAST HISTORY: Bladder fistula, mass. PROCEDURE: Axial CTimages were obtained from the lung bases to the pubic symphysis with IV contrast administration. Oral contrast was also given. Coronal and sagittal reformatted images were also obtained and reviewed.This study was performed with techniques to keep radiation doses as low as reasonably achievable, (ALARA). Individualized dose reduction techniques using automated exposure control or adjustment of mA and/or kV according to the patient size were employed. COMPARISON: April 11, 2025. FINDINGS: LOWERCHEST: The heart is normal in size. Mild [...] renal cysts are present. No hydronephrosis. A Cordon catheter is present in the bladder. There [...] abdomen and pelvic wall. No significant body wallhernias. Mild anasarca is noted. Bones: No acute fracture. Bilateral L5 pars defects are seen with grade 1 anterolisthesis of L5 on S1. Moderate degenerative changes are noted in the spine. Interval placement of a left pelvic drain [...] as low as reasonably achievable, (ALARA). Individualized dosereduction techniques using automated exposure control or adjustment [...] second left pelvic drain is present. A Cordon catheter is present in the bladder. Postoperative changes are seen in the distal sigmoid colon. There is no evidenceof bowel obstruction. No acute bony abnormality is identified. Degenerative changes are noted in the lower lumbar spine. There are bilateral L5 pars defects. IMPRESSION: Contrast leakage from the anterior bladder to the left lateral lower pelvic fluid collection consistent with a fistula. A drain is present within the left lower pelvis fluid collection with significant improvement since the priorCT. Images reviewed, interpreted, and dictated by Gunnar De La Paz MD CT DRAINAGE PERITONEAL/RETROPERITONEAL W GUIDANCE Result Date: 04/11/2025 CT GUIDED DRAIN PLACEMENT HISTORY: Left groin abscess. . ATTENDING RADIOLOGIST: Dr. Gaviria. PHYSICIAN PRODUCT SAFETY TESTER: Jean Pierre Hughes PA-C. PROCEDURE: After informed consent was obtained and a time-out was performed, the patient was prepped and draped in the usual sterile fashion over the left groin. Utilizing local anesthesia and sterile technique with a catheter access needle, access to the fluid collection was obtained under direct CT guidance. An Amplatz wire was placed. Serial dilatation was performed. A 10 Armenian pigtail catheter was placed looped in the [...] process. Overall sedation time was [address] guided percutaneous drain placement without immediate complication. Sample of the fluid was sent to lab for cultures. Images reviewed, interpreted, and dictated by Dr. Roro Gaviria. Transcribed by Jean Pierre Hughes PA-C XR chest AP portable Result Date: 04/11/2025 PORTABLE CHEST 04/11/2025 11:00 AM HISTORY: Shortness of air COMPARISON: April 09, 2025 FINDINGS: Thepatient is status post median sternotomy. The heart is stable in size. The lung sanchez demonstrate no significant change. There is no pneumothorax. The support devices are in good position. There has been no significant interval change. Continued follow up recommended. Images reviewed, interpreted, and dictated by Dr. Roro Gaviria. Transcribed by Giovany Meza PA-C. CT ABDOMEN/PELVIS WITH IV CONTRAST Standard Protocol Result Date: 04/11/2025 CT SCAN OF THE ABDOMEN AND PELVIS WITH CONTRAST; 04/11/2025 9:34 AM HISTORY: Epigastric pain. COMPARISON: January 2018. PROCEDURE: The patient was injected with IV contrast. Axial images were obtained fromthe lung bases to the pubic symphysis by [...] bilateral L5 pars defects. There is mild bi basilar atelectasis. There is a gallstone in the gallbladder. There is perinephric stranding bilaterally. There are peripelvic cysts bilaterally. There is a simple cyst projecting off the superior aspect of the right kidney. The solid organs are otherwise unremarkable. There is mesh in the anteriorabdominal wall. There are skin alexandro in the anterior abdominal wall. There is trace ascites and free intraperitoneal air. There is a right abdominal ostomy. There is a ventral hernia in the anterior left abdomen containing a small amount of fluid and free air. PELVIS: The urinary bladder is decompressed by a Cordon. There is flocculent fluid and debris extending into the left inguinal canal, likely representing an abscess. There is stranding in the anterior abdominal wall. Status post sigmoid colon resection. The appendix is not identified. The bowel loops are mildly distended. There is presacral stranding and fluid. There is stranding in the right inguinal canal. A surgical drain is looped in the pelvis. Minimal free fluid and free air, consistent with recent operative intervention. Perinephric stranding is nonspecific but pyelonephritis is not excluded. Loculated fluid collection in the left inguinal canal could represent an abscess. Images reviewed, interpreted, and dictated by Roro Gaviria MD XR chest AP portable Result Date: 04/10/2025 PORTABLE CHEST 04/09/2025 8:38 PM HISTORY: [...] side port terminates at the gastroesophageal junction. Interval placement of nasogastric tube. Side port terminates at the GE junction. Mild increased interstitial markings may represent mild edema. Images reviewed, interpreted, and dictated by Dr. Jeanie Melton. Transcribed by Jean Pierre Hughes PA-C Medications Reviewed: aspirin 325 mg oral Every Night 325 mg at 04/26/252240 atorvastatin 40 mg oral Every Night 40 mg at 04/26/25 224 cefTRIAXone 1 g intravenous Daily IVPB Stopped at 04/27/25 1004 DAPTOmycin (CUBICIN) 350 mg in sodium chloride 0.9% (NS) non-DEHP 50 mL IVPB 350 mg intravenous Q24H IVPB Stopped at 04/26/25 2314 insulin lispro 0-18 Units subcutaneous 4x Daily AC metoprolol succinate 50 mg oral Every Night 50 mg at 04/26/25 2241 metroNIDAZOLE 500 mg intravenous Q8H IVPB Stopped at 04/27/25 1004 QUEtiapine 200 mg oral BID 200 mg at 04/27/25 0841 sodium chloride 10 mL intra-catheter Q8H 10 mL at 04/27/25 1406 [Held by provider] spironolactone 25 mg oral Every Night 25 mg at 04/24/252005 [Held by provider] valsartan 40 mg oral BID 40 mg at 04/24/252005 Assessment/Plan: Patient Active Problem List Diagnosis Date Noted Sepsis (HCC) 04/24/2025 Diverticulitis of colon with perforation 04/09/2025 Anxiety 04/06/2025 Depression 04/06/2025 Heart failure (HCC) 04/06/2025 Coronary artery disease involving autologous artery coronary bypass graft 03/12/2025 Diabetes mellitus, type 2 (HCC) 03/12/2025 Current every day smoker 03/12/2025 Hyperlipidemia 03/12/2025 Osteoarthritis 06/21/2017 Medical decision making: Infected groin mesh with abscess Advised by infectious disease: Medication/Dose/Route/Frequency: Daptomycin 500 mg IV daily, ceftriaxone 2 g IV daily, metronidazole 500 mg p.o. 3 times daily End Date: 05/25/2025 diagnosis: Left groin abscess and mesh infection with Enterococcus, Klebsiella,Clostridium status post previous resection of infected mesh 04/11/2025, and repair of colovesical fistula Labs Needed and Frequency: CBC with differential, CMP, CRP, CPK weekly while on IV antibiotics. I approve us of standard hypersensitivity medications: Access existing central venous access device or insert peripheral IV as needed. Restart peripheral IV catheter (as needed) for any signs of redness, pain, swelling. [facility] Social service for arranging for IV antibiotics and discharge planning Daptomycin Flagyl Ceftriaxone Sepsis with leukocytosis secondary to left inguinal groin infected mesh with vesico-cutaneous fistula: Seen by surgery advise IV antibiotics referral to [facility] and infectious disease:Patient will need further evaluation by surgical services potentially at the [facility] for his complex Garnett-Pablo mesh revision and urologic procedures. Type 2 diabetes mellitus: Blood sugar ACHS Sliding scale CAD status post bypass Asymptomatic Continue home medication Hyperlipidemia: Continue statins Osteoarthritis: Continue pain control Anxiety disorder with major depression: Continue SSRI DVT Prophylaxis: SCUDs CODE STATUS: Full code Reason for continued hospitalization and medical necessity: Patient with infected mesh with fistula requiring further management Orders today [facility] Social service for arranging for IV antibiotics and discharge planning Daptomycin Flagyl Ceftriaxone Time spent: 38 minute not only including [id number] rounding putting in the orders writing the note and all the conversation reviewing the records This cook dinner was electronically signed. It was dictated by use of voice recognition software and electronically transcribed. The cook dinner may contain errors not detected in proofreading. Disposition: To be determined Seen by 7th grade social studies teacher advised: Pt declines [facility]. 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 .Informed pt would inform providers of his decision. made aw This has been electronically signed by: [email or web address] Zuhair Collier MD.[email or web address].[email or web address].[facility] 04/27/2025 * Radha Short RN - 04/27/2025 1:45 PM EDT Discharge Plan Progress Note CM at bs. Pt declines [facility]. 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 Pt declines option to have family handle business or to bring any business information tohim in the hospital Pt states I do not want family to know where my financial information or my checkbook are located, I just need to go home. .Informed pt would inform providers of his decision. made aware. Radha Short, RN * Rebekah Lockhart MD - 04/27/2025 12:43 PM EDT Subjective \ Patient is doing okay today. His pain is controlled. He denies any fevers or chills. He feels better. He is in better spirits. He is working with classification case manager to figure out how to best obtain his antibiotics. Review of Systems Objective Last Recorded Vitals Blood pressure 112/62, pulse 68, temperature 97.3 ??F (36.3 ??C), resp. rate 16, height 1.753 m (5'9 ), weight 78.5 kg (173 lb), SpO2 97%. Physical Exam Abdomen soft, nontender, nondistended. Ileostomy is pink patent and productive. PERC drain with murky urine Cordon with clear urine Labs: Results for orders placed or performed during the hospital encounter of 08/19/25 (from the past 24 hours) Glucose, Nova Meter Status: None Collection Time: 04/26/25 3:42 PM Result Value Ref Range POC-GLUCOSE 82 70 - 110 mg/dL On Site Manager [id number] Glucose, Nova Meter Status: None Collection Time: 04/26/25 8:31 PM Result Value Ref Range POC-GLUCOSE 108 70 - 110 mg/dL On Site Manager [id number] Glucose, Nova Meter Status: Abnormal Collection Time: 04/27/25 6:28 AM Result Value Ref Range POC-GLUCOSE 113 (H) 70 - 110 mg/dL On Site Manager [id number] Glucose, Nova Meter Status: None Collection Time: 04/27/25 10:23 AM Result Value Ref Range POC-GLUCOSE 106 70 - 110 mg/dL On Site Manager [id number] XR chest AP portable Narrative: PORTABLE CHEST 04/24/2025 4:19 PM HISTORY: Sepsis. COMPARISON: April 11, 2025. FINDINGS: The heart is normal in size. The patient is status post sternotomy for CABG. The mediastinum is unremarkable. The lungs are clear. There is no pneumothorax. Impression: No acute cardiopulmonary process. Images reviewed, interpreted, and dictated by Dr. Davi Perez. Transcribed by [facility] Sepsis (HCC) 65-year-old male with history of prior Anthony's and subsequent reversal who presented with what appeared to be recurrent diverticulitis with colovesicular fistula. He is now status post exploratorylaparotomy, lysis of adhesions, takedown of colovesicular fistula, redo colorectal anastomosis withdiverting loop ileostomy creation incidentally identify an infected left inguinal groin mesh which eroded into the bladder and colon. This was the true etiology for his fistula. All performed on 04/09/2025 On 04/11/2025 underwent percutaneous drainage of his infected left groin mesh. 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 Hewas readmitted due to concerns of untreated bladder mesh infection leading to sepsis. He overall isdoing well now. In need of a good antibiotic plan and for the outpatient setting Plan He overall is doing well now. In need of a good antibiotic plan and for the outpatient setting oncehe has a good outpatient antibiotic plan identified, I will be comfortable with his discharge. I have no plans for surgical intervention during this hospital stay I have put in a referral in the outpatient setting to the [facility] as they may be better able to handle his complex bladder fistula to the left groin I am away for the next 10 days. Please call my partners if needed * Murtaza Amato MD - 04/27/2025 10:37 AM EDT Images from the original note were not included. [facility] INFECTIOUS DISEASE PROGRESS NOTE Levar Rand 1960 [id number] Date of consult: 04/25/2025 Admit date: 04/24/2025 Requesting Provider: @[email or web address]@ Evaluating physician: Murtaza Amato MD Reason for Consultation: Left groin mesh infection, abscess, colovesical fistula, previous culturesfrom 04/11 surgery positive for Enterococcus faecium, Klebsiella pneumonia, Clostridium Chief Complaint: Subjective History of present illness: Patient is a 65 y.o. Yr old male with a history of diabetes mellitus type 2, essential hypertension, hyperlipidemia, ongoing smoking, perforated diverticulitis with Zina procedure 2011 with reversal 2011, incisional hernia status post ventral hernia repair with Garnett-Pablo 2013, and colovesical fis sandra. Possible need for pacemaker but held off because of fistula. The patient was admitted for an elective repair to [facility] 04/09/2025. He underwent surgery with Dr. Rebekah Lockhart, and Dr. Asim Smith on 04/09/2025. There was no rebekah abscess or significant purulence noted. Therewas the presence of mesh noted from previous repairs of inguinal and abdominal hernias. Mesh was partially excised. The patient left AMA from hospital without a treatment course of antibiotics. He still had drainage surgical tubes in place and Cordon catheter. Patient was convinced by Dr. Lockharton an outpatient visit to return to hospital for admission. Patient had had increasing abdominal pain. He has no other localizing signs or symptoms of infection. I was reconsulted on 04/25/2025. No reported history of ill contacts, zoonotic exposures, TB, HIV, significant travel, immunocompromised state. 04/26/2025 hx rev. Edward dapto, cef, metronid till 05/25 for left groin abscess and mesh infx. No high fever. 04/27/2025 history reviewed. Continues on metronidazole, cephalosporin, daptomycin until 05/25 for left groin abscess and mesh infection. Patient stated he has no resources to comply with the treatmentregimen and is unable to return to clinic, as well as unable to get PICC line care. Antibiotics were to continue until 05/25. Past Medical History: Diagnosis Date Anxiety CAD [...] STENT INSERTION; Surgeon: Rebekah Lockhart MD; Location: [facility]; Service: General Surgery; Laterality: Bilateral; HAND SURGERY Bilateral HERNIA REPAIR LAPAROSCOPY,LOW ANTERIOR RESECTION N/A 04/09/2025 Procedure: (OPEN LOW ANTERIOR RESECTION WITH TAKEDOWN OF COLOVESICAL FISTULA DIVERTING LOOP ILEOSTOMY VENTRAL HERNIA REPAIR AND CYSTOSCOPY AND STENTS) EXPLANTS OF MESH, REDO LAR,EX LAP LYSIS OF ADHESIONS; Surgeon: Rebekah Lockhart MD; Location: [facility]; Service: General Surgery; Laterality: N/A; Pediatric History Patient Parents Not on file Other Topics Concern Not on file Social History Narrative Not on file Positive for smoking, no alcohol or drug use, 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 No Known Allergies There is no immunization history on file for this patient. Medication: @Scheduled Meds: aspirin 325 mg oral Every Night 325 mg at 04/26/252240 atorvastatin 40 mg oral Every Night 40 mg at 04/26/25 224 cefTRIAXone 1 g intravenous Daily IVPB Stopped at 04/27/25 1004 DAPTOmycin (CUBICIN) 350 mg in sodium chloride 0.9% (NS) non-DEHP 50 mL IVPB 350 mg intravenous Q24H IVPB Stopped at 04/26/25 2314 insulin lispro 0-18 Units subcutaneous 4x Daily AC metoprolol succinate 50 mg oral Every Night 50 mg at 04/26/25 224 metroNIDAZOLE 500 mg intravenous Q8H IVPB Stopped at 04/27/25 1004 QUEtiapine 200 mg oral BID 200 mg at 04/27/25 0841 sodium chloride 10 mL intra-catheter Q8H 10 mL at 04/26/252244 [Held by provider] spironolactone 25 mg oral Every Night 25 mg at 04/24/252005 [Held by provider] valsartan 40 mg oral BID 40 mg at 04/24/252005 Continuous Infusions: Current Facility-Administered Medications Medication Dose Route Frequency Provider Last Rate Last Admin acetaminophen (TYLENOL) tablet 1,000 mg 1,000 mg oral Q6H PRN Te Hope PA-C alteplase (CATHFLO) syringe 1 mg 1 mg intra-catheter PRN Murtaza Amato MD aspirin EC tablet 325 mg 325 mg oral Every Night Te Hope PA-C 325 mg at 04/26/25 2241 atorvastatin (LIPITOR) tablet 40 mg 40 mg oral Every Night Te Hope PA-C 40 mg at 04/26/25 2241 cefTRIAXone (ROCEPHIN) 1 g in sodium chloride 0.9 % (NS) 50 mL SHANELLE IVPB 1 g intravenous Daily Te Hope PA-C IVPB Stopped at 04/27/25 1004 DAPTOmycin (CUBICIN) 350 mg in sodium chloride 0.9% (NS) non-DEHP 50 mL IVPB 350 mg intravenous Q24H [place], [employer] IVPB Stopped at 04/26/25 2314 dextrose 50% (D50W) injection 25 g 25 g intravenous Q15 Min PRN Te Hope PA-C glucagon injection 1 mg 1 mg intraMUSCULAR Q15 Min PRN Te Hope PA-C glucose chew tab 16 g 16 g oral Q15 Min PRN Te Hope PA-C hydrALAZINE (APRESOLINE) injection 10 mg 10 mg intravenous Q6H PRN Te Hope PA-C HYDROcodone-acetaminophen (NORCO) 7.5-325 mg per tablet 1 tablet 1 tablet oral Q6H PRN Te Hope PA-C 1 tablet at 04/27/25 0841 insulin lispro (HUMALOG, ADMELOG) injection 0-18 Units 0-18 Units subcutaneous 4x Daily AC Te Hope PA-C magnesium sulfate IVPB 2 g in sterile water 50 mL (premix) 2 g intravenous Daily PRN Te Hope PA-C magnesium sulfate IVPB 2 g in sterile water 50 mL (premix) 2 g intravenous BID PRN Te Hope PA-C melatonin tablet 3 mg 3 mg oral Every Night PRN Te Hope PA-C 3 mg at 04/24/252005 metoprolol succinate (TOPROL-XL) 24 hr tablet 50 mg 50 mg oral Every Night Te Hope PA-C 50 mg at 04/26/25 224 metroNIDAZOLE (FLAGYL) IVPB 500 mg in sodium chloride 0.9 % 100 mL (premix) 500 mg intravenous Q8H Te Hope PA-C IVPB Stopped at 04/27/25 1004 morphine injection 2 mg 2 mg intravenous Q6H PRN Te Hope PA-C 2 mg at 04/24/252004 naloxone (NARCAN) injection 0.2 mg 0.2 mg intravenous Q2 Min PRN Te Hope PA-C ondansetron (ZOFRAN-ODT) disintegrating tablet 4 mg 4 mg oral Q8H PRN Te Hope PA-C Or ondansetron (ZOFRAN) injection 4 mg 4 mg intravenous Q8H PRN Te Hope PA-C potassium chloride (KLOR-CON) ER tablet 40 mEq 40 mEq oral 4x Daily PRN Te Hope PA-C potassium chloride IVPB 10 mEq in 100 mL sterile water (premix) 10 mEq intravenous Q1H PRN Te Hope PA-C QUEtiapine (SEROquel) tablet 200 mg 200 mg oral BID Te Hope PA-C 200 mg at 04/27/25 0841 sodium chloride flush 10 mL 10 mL intravenous PRN Marixa Pennington APRN sodium chloride flush 10 mL 10 mL intra-catheter Q8H Murtaza Amato MD 10 mL at 04/26/25 2245 sodium chloride flush 10 mL 10 mL intra-catheter PRN Murtaza Amato MD [Held by provider] spironolactone (ALDACTONE) tablet 25 mg 25 mg oral Every Night Te Hope PA-C 25 mg at 04/24/252005 tiZANidine (ZANAFLEX) tablet 4 mg 4 mg oral Q8H PRN Te Hope PA-C 4 mg at 04/27/25 0841 [Held by provider] valsartan (DIOVAN) tablet 40 mg 40 mg oral BID Te Hope PA-C 40 mg at 04/24/252005 PRN Meds:.@[email or web address]@ Please refer to the medical [...] hematemesis. Denies jaundice or chronic liver disease. Some abdominal pain as per HPI. -- No dysuria, hematuria, or flank pain. [...] legs. No seizures. Skin--No rashes or lesions, some left groin drainage Physical Exam: Vital Signs Temp: [97.3 ??F (36.3 ??C)-98.2 ??F (36.8 ??C)] 97.3 ??F (36.3 ??C) Pulse: [55-87] 65 Resp: [16] 16 BP: (100-170)/(62-97) 107/77 Blood pressure 107/77, pulse 65, temperature 97.3 ??F (36.3 ??C), resp. rate 16, height 1.753 m (5'9 ), weight 78.5 kg (173 lb), SpO2 97%. GENERAL: Awake and alert, in mild distress. Appears older than stated age. Resting [...] nondistended. No appreciable HSM. Bowel sounds normal. Obese, without rebound. SKIN: Warm and dry without cutaneous eruptions. No nodules. Surgical wounds with some drainage, no surrounding crepitus or bullae PSYCHIATRIC: Mental status lucid. No confusion. EXT: No cellulitic change. Normal ROM. NEURO: Oriented to name, nonfocal Ileostomy 04/25/2025 Results Review: I reviewed the patient's new clinical results. Recent Labs Lab(s) Units 04/26/25 0338 04/25/25 0716 04/24/25 1607 WBC K/??L 8.6 9.1 11.8* HGB GM/DL 10.6* 10.0* 12.1* HCT % 33.4* 31.6* 38.1* PLT K/CU MM 425* 420* 597* Recent Labs Lab(s) Units 04/27/25 1023 04/26/25 0453 04/26/25 0338 NA meq/L -- -- 139 K meq/L -- -- 4.2 CL meq/L -- -- 109 CO2 meq/L -- -- 20* BUN mg/dL -- -- 10.7 CREATININE mg/dL -- -- 0.88 GLUCOSE mg/dL 106 < > 102 CALCIUM mg/dL -- -- 8.4 < > = values in this interval not displayed. Recent Labs Lab(s) Units 04/25/25 0421 ALKPHOS U/L 77 BILITOT mg/dL 0.3 ALT U/L <7 AST U/L 20 No results for input(s): SEDRATE in the last 168 hours. Recent Labs Lab(s) Units 04/25/25 0421 CRP mg/L 6.6* No results for input(s): VANCOTROUGH , VANCORANDOM in the last 168 hours. No results for input(s): LACTATE in the last 168 hours. Estimated Creatinine Clearance: 82.6 mL/min (by C-G formula based on SCr of 0.88 mg/dL). @LABRCNTIP (cpk,ast,alt,alkaline phosphatase)@ Microbiology: Microbiology Results (last 7 days) Procedure Component Value Units Date/Time Blood Culture [[id number]] Collected: 04/24/25 1607 Order Status: Completed Specimen: Blood Updated: 04/26/25 1700 Result No growth in 48 hours Blood Culture [[id number]] Collected: 04/24/25 1607 Order Status: Completed Specimen: Blood Updated: 04/26/25 1700 Result No growth in 48 hours Radiology: Radiology Results (last 3 days) Procedure Component Value Units Date/Time XR chest AP portable [[id number]] Collected: 04/24/25 1640 Order Status: Completed Updated: 04/24/25 1656 Narrative: PORTABLE CHEST 04/24/2025 4:19 PM HISTORY: Sepsis. COMPARISON: April 11, 2025. FINDINGS: The heart is normal in size. The patient is status post sternotomy for CABG. The mediastinum is unremarkable. The lungs are clear. There is no pneumothorax. Impression: No acute cardiopulmonary process. Images reviewed, interpreted, and dictated by Dr. Davi Perez. Transcribed by Mary Beth Ram IMPRESSION: Left groin abscess with likely chronically infected or recurrently infected Garnett-Pablo mesh previously placed 2013, and in the late with history of recurrent infection per new history. 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 Organisms isolatedincluded Klebsiella, Enterococcus, Clostridium from 04/11 surgery. Partially treated after leaving AMA. Patient very resource constrained to participate in his care. Trying to figure out his care. Colovesical fistula repair 04/09/2025, related to above. Diabetes mellitus type 2 with increased risk for infection. Noncompliance, high risk given resource limitations. Patient stated he would have difficulty returning for follow-up appointments because he could not afford the gasoline. Previously left AMA from [facility] with Cordon in place and surgical drains in place. Anemia, chronic disease. Ongoing. PLAN: Diagnostically, continue to follow patient's physical exam, CBC, CMP, CRP, radiographic studies. CPK weekly while on daptomycin. Therapeutically, continue daptomycin, ceftriaxone, and metronidazole, with until 05/25/2025 and reassess. PICC line for long-term venous access. Then reassess. Supportive care. Patient will need further evaluation by surgical services potentially at the [facility] for his complex Garnett-Pablo mesh revision and urologic procedures. I have discussed this complex case with case management and his attending. Patient says he is unable to comply with treatment plan and will not return to clinic, nor will he comply with PICC care, as he does not have resources. He also refused remaining in the hospital to receive his therapy. He also refused placement. Difficult situation. I discussed the patient's findings and my recommendations with the patient, nursing, and Dr. Lockhart. Thank you for asking me to see Levar Radn. Our group would be pleased to follow this patient over the course of their hospitalization and assist with outpatient antimicrobial therapy, as indicated. Further recommendations depend on the results of the cultures and clinical course. The patient hasan increased risk for adverse drug reactions, complications of IV access, readmission. Side effectsof medications were discussed. See next on Wednesday, call sooner if needed. Partners covering. I willbe out. This visit included the following complex service elements: Complex medical decision-making associated with antimicrobial prescribing. In-depth chart review with high level synthesis for complex diagnoses. Managed infection prevention and treatment protocol associated with transitions of care for this complex patient. Counseled patients, family members, and/or caregivers regarding antimicrobial stewardship and resistance for the patient. Case management orders: Please arrange for outpatient antibiotics. Medication/Dose/Route/Frequency: Daptomycin 500 mg IV daily, ceftriaxone 2 g IV daily, metronidazole 500 mg p.o. 3 times daily End Date: 05/25/2025 diagnosis: Left groin abscess and mesh infection with Enterococcus, Klebsiella,Clostridium status post previous resection of infected mesh 04/11/2025, and repair of colovesical fistula Labs Needed and Frequency: CBC with differential, CMP, CRP, CPK weekly while on IV antibiotics. I approve us of standard hypersensitivity medications: Access existing central venous access device or insert peripheral IV as needed. Restart peripheral IV catheter (as needed) for any signs of redness, pain, swelling. Murtaza Amato MD 04/27/2025 * Samantha Manzo MD - 04/26/2025 1:42 PM EDT HOSPITALIST PROGRESS NOTE Patient: Levar Rand Date: 04/26/2025 Subjective Date of Service: 04/26/2025 Overall feeling better. Hemodynamically stable and on room air. Eager to go home but concerned about follow-up Review of Systems Constitutional: Negative for chills and fever. Respiratory: Negative for cough and shortness of breath. Cardiovascular: Negative for chest pain and palpitations. Gastrointestinal: Negative for abdominal pain, diarrhea and vomiting. Musculoskeletal: Negative for myalgias. Neurological: Negative for weakness and headaches. Objective Vitals: Temp: [97.3 ??F (36.3 ??C)-98.6 ??F (37 ??C)] 97.3 ??F (36.3 ??C) Pulse: [54-71] 60 Resp: [16-17] 17 BP: (100-145)/(71-124) 100/71 Intake/Output: Intake/Output Summary (Last 24 hours) at 04/26/2025 1342 Last data filed at 04/26/2025 1200 Gross per 24 hour Intake -- Output 4850 ml Net -4850 ml Physical exam: Physical Exam Constitutional: Appearance: Normal appearance. HENT: Head: Normocephalic. Eyes: Conjunctiva/sclera: Conjunctivae normal. Cardiovascular: Rate and Rhythm: Normal rate and regular rhythm. Heart sounds: No murmur heard. Pulmonary: Effort: No respiratory distress. Breath sounds: Normal breath sounds. No wheezing. Abdominal: Comments: Ostomy in place Central abdominal incision Genitourinary: Comments: Drain in place left inguinal canal Musculoskeletal: General: No swelling or deformity. Skin: General: Skin is warm and dry. Findings: No lesion or rash. Neurological: General: No focal deficit present. Mental Status: He is alert and oriented to person, place, and time. Psychiatric: Mood and Affect: Mood normal. Behavior: Behavior normal. Pertinent Recent Radiology: CT abdomen/pelvis 04/15: Left pelvic drain with improvement in the left lower pelvic air and fluid collection, cholelithiasis Assessment and Plan #Sepsis (present on admission) due to infected left inguinal groin mesh and vesicocutaneous fistula Tachycardia, leukocytosis WBC remains normal ID following: Rocephin, daptomycin, Flagyl PICC line ordered Blood culture NGTD #Infected left inguinal groin mesh Patient previously seen by general surgery who recommended long-term antibiotics and possible future removal of the mesh but at this time would be very concerning for possible vascular or bladder injury with further removal of incorporated mesh as it is likely densely adhered to structures leadingto significant morbidity if excised Drain currently in place #Vesicocutaneous fistula Patient evaluated by Dr. Swanson on 04/14: I do not feel that exploration with attempted repair at this point would be advisable Closely monitor urine output Code Status: Current Code Status Full code Discharge Planning: Barriers to discharge/reason for continued hospitalization: Needs IV antibiotics until 05/25. PICC line placed. Patient would like to go home but due to his insurance, he is unable to get home health.Infusion services are quite expensive. Case management discussing with him about SNF versus LTAC placement. Expected (tentative) discharge in: TBD. Patient medically ready for discharge as of 04/26 Expected discharge disposition: SNF versus LTAC for IV antibiotics versus home Additional discharge needs: PCP follow-up, urology follow-up, general surgery follow-up Signed: Samantha Manzo MD 04/26/2025, 2:21 PM * Murtaza Amato MD - 04/26/2025 12:33 PM EDT Images from the original note were not included. [facility] [address] [facility] INFECTIOUS DISEASE PROGRESS NOTE Levar Palomino Giorgi 1960 [id number] Date of consult: 04/25/2025 Admit date: 04/24/2025 Requesting Provider: @[email or web address]@ Evaluating physician: Murtaza Amato MD Reason for Consultation: Left groin mesh infection, abscess, colovesical fistula, previous culturesfrom 04/11 surgery positive for Enterococcus faecium, Klebsiella pneumonia, Clostridium Chief Complaint: Subjective History of present illness: Patient is a 65 y.o. Yr old male with a history of diabetes mellitus type 2, essential hypertension, hyperlipidemia, ongoing smoking, perforated diverticulitis with Zina procedure 2011 with reversal 2011, incisional hernia status post ventral hernia repair with Garnett-Pablo 2013, and colovesical fis sandra. Possible need for pacemaker but held off because of fistula. The patient was admitted for an elective repair to [facility] 04/09/2025. He underwent surgery with Dr. Rebekah Lockhart, and Dr. Asim Smith on 04/09/2025. There was no rebekah abscess or significant purulence noted. Therewas the presence of mesh noted from previous repairs of inguinal and abdominal hernias. Mesh was partially excised. The patient left AMA from hospital without a treatment course of antibiotics. He still had drainage surgical tubes in place and Cordon catheter. Patient was convinced by Dr. Lockharton an outpatient visit to return to hospital for admission. Patient had had increasing abdominal pain. He has no other localizing signs or symptoms of infection. I was reconsulted on 04/25/2025. No reported history of ill contacts, zoonotic exposures, TB, HIV, significant travel, immunocompromised state. 04/26/2025 hx rev. Edward dapto, cef, metronid till 05/25 for left groin abscess and mesh infx. No high fever. Past Medical History: Diagnosis Date Anxiety CAD [...] STENT INSERTION; Surgeon: Rebekah Lockhart MD; Location: [facility]; Service: General Surgery; Laterality: Bilateral; HAND SURGERY Bilateral HERNIA REPAIR LAPAROSCOPY,LOW ANTERIOR RESECTION N/A 04/09/2025 Procedure: (OPEN LOW ANTERIOR RESECTION WITH TAKEDOWN OF COLOVESICAL FISTULA DIVERTING LOOP ILEOSTOMY VENTRAL HERNIA REPAIR AND CYSTOSCOPY AND STENTS) EXPLANTS OF MESH, REDO LAR,EX LAP LYSIS OF ADHESIONS; Surgeon: Rebekah Lockhart MD; Location: [facility]; Service: General Surgery; Laterality: N/A; Pediatric History Patient Parents Not on file Other Topics Concern Not on file Social History Narrative Not on file Positive for smoking, no alcohol or drug use, 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 No Known Allergies There is no immunization history on file for this patient. Medication: @Scheduled Meds: aspirin 325 mg oral Every Night 325 mg at 04/25/252050 atorvastatin 40 mg oral Every Night 40 mg at 04/25/252050 cefTRIAXone 1 g intravenous Daily IVPB Stopped at 04/26/25 09 DAPTOmycin (CUBICIN) 350 mg in sodium chloride 0.9% (NS) non-DEHP 50 mL IVPB 350 mg intravenous Q24H IVPB Stopped at 04/25/252108 insulin lispro 0-18 Units subcutaneous 4x Daily AC metoprolol succinate 50 mg oral Every Night 50 mg at 04/25/252050 metroNIDAZOLE 500 mg intravenous Q8H IVPB Stopped at 04/26/25 0958 QUEtiapine 200 mg oral BID 200 mg at 04/26/25 0855 sodium chloride 10 mL intra-catheter Q8H [Held by provider] spironolactone 25 mg oral Every Night 25 mg at 04/24/252005 [Held by provider] valsartan 40 mg oral BID 40 mg at 04/24/252005 Continuous Infusions: Current Facility-Administered Medications Medication Dose Route Frequency Provider Last Rate Last Admin acetaminophen (TYLENOL) tablet 1,000 mg 1,000 mg oral Q6H PRN Te Hope PA-C alteplase (CATHFLO) syringe 1 mg 1 mg intra-catheter PRN Murtaza Amato MD aspirin EC tablet 325 mg 325 mg oral Every Night Te Hope PA-C 325 mg at 04/25/252050 atorvastatin (LIPITOR) tablet 40 mg 40 mg oral Every Night Te Hope PA-C 40 mg at 04/25/252050 cefTRIAXone (ROCEPHIN) 1 g in sodium chloride 0.9 % (NS) 50 mL SHANELLE IVPB 1 g intravenous Daily Te Hope PA-C IVPB Stopped at 04/26/25 0927 DAPTOmycin (CUBICIN) 350 mg in sodium chloride 0.9% (NS) non-DEHP 50 mL IVPB 350 mg intravenous Q24H [place], [employer] IVPB Stopped at 04/25/252108 dextrose 50% (D50W) injection 25 g 25 g intravenous Q15 Min PRN Te Hope PA-C glucagon injection 1 mg 1 mg intraMUSCULAR Q15 Min PRN Te Hope PA-C glucose chew tab 16 g 16 g oral Q15 Min PRN Te Hope PA-C hydrALAZINE (APRESOLINE) injection 10 mg 10 mg intravenous Q6H PRN Te Hope PA-C HYDROcodone-acetaminophen (NORCO) 7.5-325 mg per tablet 1 tablet 1 tablet oral Q6H PRN Te Hope PA-C 1 tablet at 04/26/25 0855 insulin lispro (HUMALOG, ADMELOG) injection 0-18 Units 0-18 Units subcutaneous 4x Daily AC Te Hope PA-C magnesium sulfate IVPB 2 g in sterile water 50 mL (premix) 2 g intravenous Daily PRN Te Hope PA-C magnesium sulfate IVPB 2 g in sterile water 50 mL (premix) 2 g intravenous BID PRN Te Hope PA-C melatonin tablet 3 mg 3 mg oral Every Night PRN Te Hope PA-C 3 mg at 04/24/252005 metoprolol succinate (TOPROL-XL) 24 hr tablet 50 mg 50 mg oral Every Night Te Hope PA-C 50 mg at 04/25/252050 metroNIDAZOLE (FLAGYL) IVPB 500 mg in sodium chloride 0.9 % 100 mL (premix) 500 mg intravenous Q8H Te Hope PA-C IVPB Stopped at 04/26/25 0958 morphine injection 2 mg 2 mg intravenous Q6H PRN Te Hope PA-C 2 mg at 04/24/252004 naloxone (NARCAN) injection 0.2 mg 0.2 mg intravenous Q2 Min PRN Te Hope PA-C ondansetron (ZOFRAN-ODT) disintegrating tablet 4 mg 4 mg oral Q8H PRN Te Hope PA-C Or ondansetron (ZOFRAN) injection 4 mg 4 mg intravenous Q8H PRN Te Hope PA-C potassium chloride (KLOR-CON) ER tablet 40 mEq 40 mEq oral 4x Daily PRN Te Hope PA-C potassium chloride IVPB 10 mEq in 100 mL sterile water (premix) 10 mEq intravenous Q1H PRN Te Hope PA-C QUEtiapine (SEROquel) tablet 200 mg 200 mg oral BID Te Hope PA-C 200 mg at 04/26/25 0855 sodium chloride flush 10 mL 10 mL intravenous PRN Marixa Pennington APRN sodium chloride flush 10 mL 10 mL intra-catheter Q8H Murtaza Amato MD sodium chloride flush 10 mL 10 mL intra-catheter PRN Murtaza Amato MD [Held by provider] spironolactone (ALDACTONE) tablet 25 mg 25 mg oral Every Night Te Hope PA-C 25 mg at 04/24/252005 tiZANidine (ZANAFLEX) tablet 4 mg 4 mg oral Q8H PRN Te Hope PA-C 4 mg at 04/26/25 0855 [Held by provider] valsartan (DIOVAN) tablet 40 mg 40 mg oral BID Te Hope PA-C 40 mg at 04/24/252005 PRN Meds:.@MEDSPRN@ Please refer to the medical [...] hematemesis. Denies jaundice or chronic liver disease. Some abdominal pain as per HPI. -- No dysuria, hematuria, or flank pain. [...] legs. No seizures. Skin--No rashes or lesions, some left groin drainage, no nodules Physical Exam: Vital Signs Temp: [97.7 ??F (36.5 ??C)-98.6 ??F (37 ??C)] 97.7 ??F (36.5 ??C) Pulse: [59-71] 59 Resp: [16-17] 17 BP: (105-145)/(76-124) 106/82 Blood pressure 106/82, pulse 59, temperature 97.7 ??F (36.5 ??C), temperature source Oral, resp. rate 17, height 1.753 m (5' 9 ), weight 78.5 kg (173 lb), SpO2 91%. GENERAL: Awake and alert, in moderate distress. Appears older than stated age. HEENT: Normocephalic, atraumatic. Oropharynx without thrush. Dentition [...] nondistended. No appreciable HSM. Bowel sounds normal. Obese, without rebound. SKIN: Warm and dry without cutaneous eruptions. No nodules. Surgical wounds with some drainage, no surrounding crepitus or bullae PSYCHIATRIC: Mental status lucid. No confusion. EXT: No cellulitic change. Normal ROM. NEURO: Oriented to name, nonfocal Ileostomy 04/25/2025 Results Review: I reviewed the patient's new clinical results. Recent Labs Lab(s) Units 04/26/25 0338 04/25/25 0716 04/24/25 1607 WBC K/??L 8.6 9.1 11.8* HGB GM/DL 10.6* 10.0* 12.1* HCT % 33.4* 31.6* 38.1* PLT K/CU MM 425* 420* 597* Recent Labs Lab(s) Units 04/26/25 1017 04/26/25 0453 04/26/25 0338 NA meq/L -- -- 139 K meq/L -- -- 4.2 CL meq/L -- -- 109 CO2 meq/L -- -- 20* BUN mg/dL -- -- 10.7 CREATININE mg/dL -- -- 0.88 GLUCOSE mg/dL 123* < > 102 CALCIUM mg/dL -- -- 8.4 < > = values in this interval not displayed. Recent Labs Lab(s) Units 04/25/25 0421 ALKPHOS U/L 77 BILITOT mg/dL 0.3 ALT U/L <7 AST U/L 20 No results for input(s): SEDRATE in the last 168 hours. Recent Labs Lab(s) Units 04/25/25 0421 CRP mg/L 6.6* No results for input(s): VANCOTROUGH , VANCORANDOM in the last 168 hours. No results for input(s): LACTATE in the last 168 hours. Estimated Creatinine Clearance: 82.6 mL/min (by C-G formula based on SCr of 0.88 mg/dL). @LABRCNTIP (cpk,ast,alt,alkaline phosphatase)@ Microbiology: Microbiology Results (last 7 days) Procedure Component Value Units Date/Time Blood Culture [[id number]] Collected: 04/24/25 160 Order Status: Completed Specimen: Blood Updated: 04/25/25 170 Result No growth in 24 hours Blood Culture [[id number]] Collected: 04/24/25 160 Order Status: Completed Specimen: Blood Updated: 04/25/25 170 Result No growth in 24 hours Radiology: Radiology Results (last 3 days) Procedure Component Value Units Date/Time XR chest AP portable [[id number]] Collected: 04/24/25 1640 Order Status: Completed Updated: 04/24/25 165 Narrative: PORTABLE CHEST 04/24/2025 4:19 PM HISTORY: Sepsis. COMPARISON: April 11, 2025. FINDINGS: The heart is normal in size. The patient is status post sternotomy for CABG. The mediastinum is unremarkable. The lungs are clear. There is no pneumothorax. Impression: No acute cardiopulmonary process. Images reviewed, interpreted, and dictated by Dr. Davi Perez. Transcribed by Mary Beth Ram IMPRESSION: Left groin abscess with likely chronically infected or recurrently infected Garnett-Pablo mesh previously placed 2013, and in the late with history of recurrent infection per new history. 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 Organisms isolatedincluded Klebsiella, Enterococcus, Clostridium from 04/11 surgery. Partially treated after leaving AMA. Patient very resource constrained to participate in his care. Colovesical fistula repair 04/09/2025, related to above. Diabetes mellitus type 2 with increased risk for infection. Noncompliance, high risk given resource limitations. Patient stated he would have difficulty returning for follow-up appointments because he could not afford the gasoline. Previously left AMA from [facility] with Cordon in place and surgical drains in place. Anemia, chronic disease. Worse. PLAN: Diagnostically, continue to follow patient's physical exam, CBC, CMP, CRP, radiographic studies as needed. CPK weekly while on daptomycin. Therapeutically, continue daptomycin, ceftriaxone, and metronidazole, with until 05/25/2025 and reassess. PICC line for long-term venous access. Supportive care. Patient will need further evaluation by surgical services potentially at the [facility] for his complex Garnett-Pablo mesh revision and urologic procedures. I discussed the patient's findings and my recommendations with the patient, nursing, and Dr. Lockhart. Thank you for asking me to see [...] antimicrobial stewardship and resistance for the patient. Case management orders: Please arrange for outpatient antibiotics. Medication/Dose/Route/Frequency: Daptomycin 500 mg IV daily, ceftriaxone 2 g IV daily, metronidazole 500 mg p.o. 3 times daily End Date: 05/25/2025 diagnosis: Left groin abscess and mesh infection with Enterococcus, Klebsiella,Clostridium status post previous resection of infected mesh 04/11/2025, and repair of colovesical fistula Labs Needed and Frequency: CBC with differential, CMP, CRP, CPK weekly while on IV antibiotics. I approve us of standard hypersensitivity medications: Access existing central venous access device or insert peripheral IV as needed. Restart peripheral IV catheter (as needed) for any signs of redness, pain, swelling. Murtaza Amato MD 04/26/2025 * Cassia Tam RN - 04/26/2025 11:45 AM EDT PICC Line Insertion Procedure Note Procedure: Insertion of #catheter size: [id number] Lumen Peripherally Inserted Central Catheter Indications: Odd Ticket Clerk Antibiotics Procedure Details Informed consent was obtained for the procedure. Time out performed at 1120 on Today 04/26/2025 and performed by Cassia Tam RN and Zohra Arellano RN. Risks of hemorrhage, infection and DVT were discussed. Maximum sterile technique was used including hand hygiene, sterile antiseptics, cap, gown, sterile gloves, mask, and sheet. Lidocaine 1% was used , with a total of 2 ml injected. Lot number: [id number] #catheter size: 4 FR Single Lumen Peripherally Inserted Central Catheter inserted to the Right Basilicvein per hospital protocol. Total number of vein access attempts made: 1 Positive Blood return in each lumen: Yes No Resistance to flushing in each lumen Guidewire removed: Yes Complications: No Findings: Catheter trimmed at 45 cm, with 44 cm internal and 1 cm external. Arm circumference is 27 cm. Therewere no changes to vital signs. Each lumen was flushed with 10ml 0.9% Normal saline. Patient did tolerate procedure well. Dressing Applied: Sterile, transparent semipermeable dressing with CHG gel.. Placement Verified by: ECG/Sherlock Device Central line tip confirmation confirms tip terminating in the: SVC Nurse who was notified: Pauline RN Nurse approved to use line: yes PICC education provided to patient. Educational brochure given to patient. * Murtaza Amato MD - 04/26/2025 9:08 AM EDT Images from the original note were not included. [facility] INFECTIOUS DISEASE PROGRESS NOTE Levar Rand 1960 [id number] Date of consult: 04/25/2025 Admit date: 04/24/2025 Requesting Provider: @[email or web address]@ Evaluating physician: Murtaza Amato MD Reason for Consultation: Left groin mesh infection, abscess, colovesical fistula, previous culturesfrom 04/11 surgery positive for Enterococcus faecium, Klebsiella pneumonia, Clostridium Chief Complaint: Subjective History of present illness: Patient is a 65 y.o. Yr old male with a history of diabetes mellitus type 2, essential hypertension, hyperlipidemia, ongoing smoking, perforated diverticulitis with Zina procedure 2011 with reversal 2011, incisional hernia status post ventral hernia repair with Garnett-Pablo 2013, and colovesical fis sandra. Possible need for pacemaker but held off because of fistula. The patient was admitted for an elective repair to [facility] 04/09/2025. He underwent surgery with Dr. Rebekah Lockhart, and Dr. sAim Smith on 04/09/2025. There was no rebekah abscess or significant purulence noted. Therewas the presence of mesh noted from previous repairs of inguinal and abdominal hernias. Mesh was partially excised. The patient left AMA from hospital without a treatment course of antibiotics. He still had drainage surgical tubes in place and Cordon catheter. Patient was convinced by Dr. Garrett an outpatient visit to return to hospital for admission. Patient had had increasing abdominal pain. He has no other localizing signs or symptoms of infection. I was reconsulted on 04/25/2025. No reported history of ill contacts, zoonotic [...] STENT INSERTION; Surgeon: Rebekah Lockhart MD; Location: [facility]; Service: General Surgery; Laterality: Bilateral; HAND SURGERY Bilateral HERNIA REPAIR LAPAROSCOPY,LOW ANTERIOR RESECTION N/A 04/09/2025 Procedure: (OPEN LOW ANTERIOR RESECTION WITH TAKEDOWN OF COLOVESICAL FISTULA DIVERTING LOOP ILEOSTOMY VENTRAL HERNIA REPAIR AND CYSTOSCOPY AND STENTS) EXPLANTS OF MESH, REDO LAR,EX LAP LYSIS OF ADHESIONS; Surgeon: Rebekah Lockhart MD; Location: [facility]; Service: General Surgery; Laterality: N/A; Pediatric History Patient Parents Not on file Other Topics Concern Not on file Social History Narrative Not on file Positive for smoking, no alcohol or drug use, 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 No Known Allergies There is no immunization history on file for this patient. Medication: @Scheduled Meds: aspirin 325 mg oral Every Night 325 mg at 04/25/252050 atorvastatin 40 mg oral Every Night 40 mg at 04/25/252050 cefTRIAXone 1 g intravenous Daily 1 g at 04/26/25854 DAPTOmycin (CUBICIN) 350 mg in sodium chloride 0.9% (NS) non-DEHP 50 mL IVPB 350 mg intravenous Q24H IVPB Stopped at 04/25/252108 insulin lispro 0-18 Units subcutaneous 4x Daily AC metoprolol succinate 50 mg oral Every Night 50 mg at 04/25/252050 metroNIDAZOLE 500 mg intravenous Q8H 500 mg at 04/26/25854 QUEtiapine 200 mg oral BID 200 mg at 04/26/25854 [Held by provider] spironolactone 25 mg oral Every Night 25 mg at 04/24/252005 [Held by provider] valsartan 40 mg oral BID 40 mg at 04/24/252005 Continuous Infusions: Current Facility-Administered Medications Medication Dose Route Frequency Provider Last Rate Last Admin acetaminophen (TYLENOL) tablet 1,000 mg 1,000 mg oral Q6H PRN Te Hope PA-C aspirin EC tablet 325 mg 325 mg oral Every Night Te Hope PA-C 325 mg at 04/25/252050 atorvastatin (LIPITOR) tablet 40 mg 40 mg oral Every Night Te Hope PA-C 40 mg at 04/25/252050 cefTRIAXone (ROCEPHIN) 1 g in sodium chloride 0.9 % (NS) 50 mL SHANELLE IVPB 1 g intravenous Daily Te Hope PA-C 100 mL/hr at 04/26/25 0855 1 g at 04/26/25854 DAPTOmycin (CUBICIN) 350 mg in sodium chloride 0.9% (NS) non-DEHP 50 mL IVPB 350 mg intravenous Q24H Hudson [place], [employer] IVPB Stopped at 04/25/252108 dextrose 50% (D50W) injection 25 g 25 g intravenous Q15 Min PRN Te Hope PA-C glucagon injection 1 mg 1 mg intraMUSCULAR Q15 Min PRN Te Hope PA-C glucose chew tab 16 g 16 g oral Q15 Min PRN Te Hope PA-C hydrALAZINE (APRESOLINE) injection 10 mg 10 mg intravenous Q6H PRN Te Hope PA-C HYDROcodone-acetaminophen (NORCO) 7.5-325 mg per tablet 1 tablet 1 tablet oral Q6H PRN Te Hope PA-C 1 tablet at 04/26/25854 insulin lispro (HUMALOG, ADMELOG) injection 0-18 Units 0-18 Units subcutaneous 4x Daily AC Te Hope PA-C magnesium sulfate IVPB 2 g in sterile water 50 mL (premix) 2 g intravenous Daily PRN Te Hope PA-C magnesium sulfate IVPB 2 g in sterile water 50 mL (premix) 2 g intravenous BID PRN Te Hope PA-C melatonin tablet 3 mg 3 mg oral Every Night PRN Te Hope PA-C 3 mg at 04/24/252005 metoprolol succinate (TOPROL-XL) 24 hr tablet 50 mg 50 mg oral Every Night Te Hope PA-C 50 mg at 04/25/252050 metroNIDAZOLE (FLAGYL) IVPB 500 mg in sodium chloride 0.9 % 100 mL (premix) 500 mg intravenous Q8H Te Hope PA-C 100 mL/hr at 04/26/25 0855 500 mg at 04/26/25 0855 morphine injection 2 mg 2 mg intravenous Q6H PRN Te Hope PA-C 2 mg at 04/24/252004 naloxone (NARCAN) injection 0.2 mg 0.2 mg intravenous Q2 Min PRN Te Hope PA-C ondansetron (ZOFRAN-ODT) disintegrating tablet 4 mg 4 mg oral Q8H PRN Te Hope PA-C Or ondansetron (ZOFRAN) injection 4 mg 4 mg intravenous Q8H PRN Te Hope PA-C potassium chloride (KLOR-CON) ER tablet 40 mEq 40 mEq oral 4x Daily PRN Te Hope PA-C potassium chloride IVPB 10 mEq in 100 mL sterile water (premix) 10 mEq intravenous Q1H PRN Te Hope PA-C QUEtiapine (SEROquel) tablet 200 mg 200 mg oral BID Te Hope PA-C 200 mg at 04/26/25 0855 sodium chloride flush 10 mL 10 mL intravenous PRN Marixa Pennington APRN [Held by provider] spironolactone (ALDACTONE) tablet 25 mg 25 mg oral Every Night Te Hope PA-C 25 mg at 04/24/252005 tiZANidine (ZANAFLEX) tablet 4 mg 4 mg oral Q8H PRN Te Hope PA-C 4 mg at 04/26/25 0855 [Held by provider] valsartan (DIOVAN) tablet 40 mg 40 mg oral BID Te Hope PA-C 40 mg at 04/24/252005 PRN Meds:.@MEDSPRN@ Please refer to the medical [...] hematemesis. Denies jaundice or chronic liver disease. Some abdominal pain as per HPI. -- No dysuria, hematuria, or flank pain. [...] legs. No seizures. Skin--No rashes or lesions, some left groin drainage Physical Exam: Vital Signs Temp: [97.7 ??F (36.5 ??C)-98.6 ??F (37 ??C)] 97.7 ??F (36.5 ??C) Pulse: [58-71] 59 Resp: [16-17] 17 BP: (104-145)/(70-124) 106/82 Blood pressure 106/82, pulse 59, temperature 97.7 ??F (36.5 ??C), temperature source Oral, resp. rate 17, height 1.753 m (5' 9 ), weight 78.5 kg (173 lb), SpO2 91%. GENERAL: Awake and alert, in moderate distress. Appears older than stated age. HEENT: Normocephalic, atraumatic. Oropharynx without thrush. Dentition [...] nondistended. No appreciable HSM. Bowel sounds normal. Obese, without rebound. GENITAL: No external lesions, breasts without masses, back straight, no CVAT, rectal external without lesions. SKIN: Warm and dry without cutaneous eruptions. No nodules. Surgical wounds with some drainage, no surrounding crepitus or bullae PSYCHIATRIC: Mental status lucid. No confusion. EXT: No cellulitic change. Normal ROM. NEURO: Oriented to name, CN 2 to 12 intact, DTR 1 + and symmetric, sensory intact to LT upper and lower extremitiy, motor 5/5 upper and lower extremity, cerebellar and gait not tested. Ileostomy 04/25/2025 Results Review: I reviewed the patient's new clinical results. Recent Labs Lab(s) Units 04/26/25 0338 04/25/25 0716 04/24/25 1607 WBC K/??L 8.6 9.1 11.8* HGB GM/DL 10.6* 10.0* 12.1* HCT % 33.4* 31.6* 38.1* PLT K/CU MM 425* 420* 597* Recent Labs Lab(s) Units 04/26/25 0453 04/26/25 0338 NA meq/L -- 139 K meq/L -- 4.2 CL meq/L -- 109 CO2 meq/L -- 20* BUN mg/dL -- 10.7 CREATININE mg/dL -- 0.88 GLUCOSE mg/dL 94 102 CALCIUM mg/dL -- 8.4 Recent Labs Lab(s) Units 04/25/25 0421 ALKPHOS U/L 77 BILITOT mg/dL 0.3 ALT U/L <7 AST U/L 20 No results for input(s): SEDRATE in the last 168 hours. Recent Labs Lab(s) Units 04/25/25 0421 CRP mg/L 6.6* No results for input(s): VANCOTROUGH , VANCORANDOM in the last 168 hours. No results for input(s): LACTATE in the last 168 hours. Estimated Creatinine Clearance: 82.6 mL/min (by C-G formula based on SCr of 0.88 mg/dL). @LABRCNTIP (cpk,ast,alt,alkaline phosphatase)@ Microbiology: Microbiology Results (last 7 days) Procedure Component Value Units Date/Time Blood Culture [[id number]] Collected: 04/24/25 1607 Order Status: Completed Specimen: Blood Updated: 04/25/25 1701 Result No growth in 24 hours Blood Culture [[id number]] Collected: 04/24/25 1607 Order Status: Completed Specimen: Blood Updated: 04/25/25 1701 Result No growth in 24 hours Radiology: Radiology Results (last 3 days) Procedure Component Value Units Date/Time XR chest AP portable [[id number]] Collected: 04/24/25 1640 Order Status: Completed Updated: 04/24/25 1656 Narrative: PORTABLE CHEST 04/24/2025 4:19 PM HISTORY: Sepsis. COMPARISON: April 11, 2025. FINDINGS: The heart is normal in size. The patient is status post sternotomy for CABG. The mediastinum is unremarkable. The lungs are clear. There is no pneumothorax. Impression: No acute cardiopulmonary process. Images reviewed, interpreted, and dictated by Dr. Davi Perez. Transcribed by Mary Beth Ram IMPRESSION: Left groin abscess with likely chronically infected or recurrently infected Garnett-Pablo mesh previously placed 2013, and in the late with history of recurrent infection per new history. 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 Organisms isolatedincluded Klebsiella, Enterococcus, Clostridium from 04/11 surgery. Partially treated after leaving AMA. Patient very resource constrained to participate in his care. Colovesical fistula repair 04/09/2025, related to above. Diabetes mellitus type 2 with increased risk for infection. Noncompliance, high risk given resource limitations. Patient stated he would have difficulty returning for follow-up appointments because he could not afford the gasoline. Previously left AMA from [facility] with Cordon in place and surgical drains in place. PLAN: Diagnostically, continue to follow patient's physical exam, CBC, CMP, CRP, radiographic studies as needed. CPK while on daptomycin. Therapeutically, continue daptomycin, ceftriaxone, and metronidazole, with anticipated duration until 05/25/2025 and reassess. PICC line for long-term venous access. Supportive care. Patient will need further evaluation by surgical services potentially at the [facility] for his complex Garnett-Pablo mesh revision and urologic procedures. I discussed the patient's findings and my recommendations with the patient, nursing, and Dr. Lockhart. Thank you for asking me to see [...] antimicrobial stewardship and resistance for the patient. Case management orders: Please arrange for outpatient antibiotics. Medication/Dose/Route/Frequency: Daptomycin 500 mg IV daily, ceftriaxone 2 g IV daily, metronidazole 500 mg p.o. 3 times daily End Date: 05/25/2025 diagnosis: Left groin abscess and mesh infection with Enterococcus, Klebsiella,Clostridium status post previous resection of infected mesh 04/11/2025, and repair of colovesical fistula Labs Needed and Frequency: CBC with differential, CMP, CRP, CPK weekly while on IV antibiotics. I approve us of standard hypersensitivity medications: Access existing central venous access device or insert peripheral IV as needed. Restart peripheral IV catheter (as needed) for any signs of redness, pain, swelling. Murtaza Amato MD 04/26/2025 * Marilia Campos RN - 04/26/2025 8:15 AM EDTSummary: Courtesy visit [facility] RN present to provide extra ostomy supplies for patient. Patient thankful for visit and supplies left at bedside. No new concerns at this time. Please contact wound/ostomy team for any further ostomy issues. * Pauline Stearns RN - 04/25/2025 3:35 PM EDT CHF Zone Tool and Sepsis Zone Tool provided to patient and/or family at bedside using the Handout, Verbalizes Understanding. * Ramos Weeks RN - 04/25/2025 2:58 PM EDT 04/25/25 1455 Home Environment Type of Residence Private residence Living Arrangements Alone Support Systems Children Accessibilty Issues Multi level;Other (Comment) (4 steps to enter.) Patient returning to prior living situation? Yes Affect Behavior Appropriate Prior/Regular Transportation Self;Family Needs Assistance with Transportation No ADL Assessment Dressing Independent Current Home Care Services None Assistive Devices None Transition Needs Home or Post Acute Services Home/self care (Would agree to HH if needed.) Type of Home/Self Long Term independently Does the patient have the ability to fill and receive their discharge medications? Yes Discharge Plan Discussed The discharge plan was discussed with patient. 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 Patient denies difficulty accessing his home. Patient states is independent with ADLs and able to drive. Patient has no DME and denies need for any. Patient uses no supportive services in the home or community. He would agree to HH if needed. Patient declines to consider SNF if recommended. Case Management will follow. Ramos Weeks RN * Samantha Manzo MD - 04/25/2025 2:21 PM EDT HOSPITALIST PROGRESS NOTE Patient: Levar Rand Date: 04/25/2025 Subjective Date of Service: 04/25/2025 Patient seen this morning, still having pain across his entire abdominal area. Hemodynamically stable, afebrile Review of Systems Constitutional: Negative for chills and fever. Respiratory: Negative for cough and shortness of breath. Cardiovascular: Negative for chest pain and palpitations. Gastrointestinal: Positive for abdominal pain. Negative for diarrhea and vomiting. Musculoskeletal: Negative for myalgias. Neurological: Negative for weakness and headaches. Objective Vitals: Temp: [97.5 ??F (36.4 ??C)-98.1 ??F (36.7 ??C)] 97.5 ??F (36.4 ??C) Pulse: [54-111] 54 Resp: [18-35] 27 BP: (79-144)/(59-89) 97/66 Intake/Output: Intake/Output Summary (Last 24 hours) at 04/25/2025 1421 Last data filed at 04/25/2025 1042 Gross per 24 hour Intake 2505 ml Output 875 ml Net 1630 ml Physical exam: Physical Exam Constitutional: Appearance: Normal appearance. HENT: Head: Normocephalic. Eyes: Conjunctiva/sclera: Conjunctivae normal. Cardiovascular: Rate and Rhythm: Normal rate and regular rhythm. Heart sounds: No murmur heard. Pulmonary: Effort: No respiratory distress. Breath sounds: Normal breath sounds. No wheezing. Abdominal: Comments: Ostomy in place Central abdominal incision Genitourinary: Comments: Drain in place left inguinal canal Musculoskeletal: General: No swelling or deformity. Skin: General: Skin is warm and dry. Findings: No lesion or rash. Neurological: General: No focal deficit present. Mental Status: He is alert and oriented to person, place, and time. Psychiatric: Mood and Affect: Mood normal. Behavior: Behavior normal. Pertinent Recent Radiology: CT abdomen/pelvis 04/15: Left pelvic drain with improvement in the left lower pelvic air and fluid collection, cholelithiasis Assessment and Plan #Sepsis (present on admission) due to infected left inguinal groin mesh and vesicocutaneous fistula Tachycardia, leukocytosis WBC has normalized at 9.1 Consult ID Continue previous antibiotics for now including Rocephin, daptomycin, Flagyl Discussed with Dr. Lockhart #Infected left inguinal groin mesh Patient previously seen by general surgery who recommended long-term antibiotics and possible future removal of the mesh but at this time would be very concerning for possible vascular or bladder injury with further removal of incorporated mesh as it is likely densely adhered to structures leadingto significant morbidity if excised Drain currently in place #Vesicocutaneous fistula Patient evaluated by Dr. Swanson on 04/14: I do not feel that exploration with attempted repair at this point would be advisable Closely monitor urine output Code Status: Current Code Status Full code Discharge Planning: Barriers to discharge/reason for continued hospitalization: Continue IV antibiotics, awaiting evaluation from other consultants Expected (tentative) discharge in: 2 to 3 days Expected discharge disposition: SNF versus LTAC for IV antibiotics Additional discharge needs: PCP follow-up, urology follow-up, general surgery follow-up Signed: Samantha Manzo MD 04/25/2025, 2:21 PM * Marilia Campos RN - 04/25/2025 11:15 AM EDTSummary: Courtesy Ostomy Visit Images from the original note were not included. 04/25/25 1115 Ostomy (Stool) RLQ No Date First Assessed or Time First Assessed found. Location: RLQ Ostomy Status Budded;Moist;Functioning Stoma Color [place];Red Peristomal Skin Other (comment) (ROBERTO) Interventions Other (comment) (no interventions) [facility] RN courtesy visit for established ileostomy. Patient resting on JUANITA surface, eating lunch, and agreeable to the visit. Patient known to me. Patient is knowledgeable about ostomy care and reports no leakage concerns. Good wear time is achieved with the current Bryce blue convex 2-piece pouching system with ostomy ring. Stool noted in pouch. Extra supplies to be provided. Please notify the wound/ostomy team if leakage occurs and a seal cannot be maintained. Current Ostomy Supplies: Bryce Blue convex, two piece system (#[id number], #[id number]) Adapt Ostomy Ring, 2 #5805 Stoma Powder #[id number] [place] #[id number] * Rebekah Lockhart MD - 04/24/2025 4:49 PM EDT Colorectal quick note: -This patient was seen in my clinic earlier this morning. I did not see him at [facility]. -He had findings consistent with recurrent diverticulitis with colovesicular fistula for over a year. He is now s/p exploratory laparotomy, lysis of adhesions, takedown of colovesicular fistula, colorectal anastomosis and diverting loop ileostomy on 04/09/25. Incidentally (unknown to myself and the patient) he had an infected left inguinal groin mesh. 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 The presumed diverticulitis colovesicular fistula was actually chronic abscess from hisinfected groin causing a fistula to the bladder and the colon. -After his redo LAR he underwent percutaneous drainage of his left groin abscess via IR and has continued Cordon catheter placement. The patient left AMA from the hospital. -I saw him for the first time after he left AMA today. He overall was doing fair. His surgical drain which was within the peritoneal cavity had dried up and I removed that. His left groin percutaneous drain (outside the peritoneal cavity) was draining urine consistent with his fistula to the bladder. Cordon catheter remained in place. Plan: -I discussed his care with [place] [facility] who saw him while in house. They recommended repeat admission for IV antibiotics which I happened to agree with. That was the push for him to return to the hospital to get back on IV antibiotics to treat his left groin mesh and prevent sepsis and . -Would ask my medical colleagues for admission -Ultimately he will require some sort of surgery for his bladder and fistula to the left groin, this will likely be at a delayed date and at a tertiary facility such as Urology/Gen surg -I have no surgical plans for him during this hospital stay. -I will see him tomorrow documented in this encounter H&P Notes * Te Hope PA-C - 04/24/2025 5:36 PM EDT [facility] PHYSICAL Patient Name: Levar Rand : 1960 Date: 04/24/2025 PCP: Tay Vaca MD Date of Admission: 04/24/2025 Chief Complaint: Chief Complaint Patient presents with Blood Infection History of Present Illness Levar Rand is a 65 y.o. male with a history of diabetes, hypertension, hyperlipidemia, CAD, anxiety who presents to [facility] in [place], [place] for further evaluation and management of sepsis. Patient presented to the ED after seeing his colorectal surgeon Dr. Lockhart and wassent here for admission due to patient potentially being septic. Patient not currently taking any antibiotics. Patient did have abdominal surgery and has a drain in place. Patient complaining of pain8 out of 10. Patient recently underwent LAR and percutaneous drainage of left groin abscess via IR.Patient continues with Cordon catheter for replacement. Patient left AMA from hospital. Today presented for the first time since leaving AMA. His surgical drain within the peritoneal cavity had dried up and surgeon had removed it. He still has a left groin percutaneous drainage outside. Canal cavityis draining urine consistent with his fistula to the bladder. Patient has been admitted for IV antibiotics and consultation. It is believed at some point patient required some sort of surgery for hisbladder and fistula to left groin at a later date at a tertiary facility such as . Colorectal surgery has no plans for surgical reasons during this hospital stay. Code sepsis was initiated in the ER. Significant lab findings show WBC 11.8, hemoglobin 12.1, hematocrit 38.1, platelets 597, lactic acid 2.4, glucose 104. Chest x-ray showed no acute cardiopulmonary process. Past Medical History: Past Medical History: Diagnosis [...] STENT INSERTION; Surgeon: Rebekah Lockhart MD; Location: [facility]; Service: General Surgery; Laterality: Bilateral; HAND SURGERY Bilateral HERNIA REPAIR LAPAROSCOPY,LOW ANTERIOR RESECTION N/A 04/09/2025 Procedure: (OPEN LOW ANTERIOR RESECTION WITH TAKEDOWN OF COLOVESICAL FISTULA DIVERTING LOOP ILEOSTOMY VENTRAL HERNIA REPAIR AND CYSTOSCOPY AND STENTS) EXPLANTS OF MESH, REDO LAR,EX LAP LYSIS OF ADHESIONS; Surgeon: Rebekah Lockhart MD; Location: [facility]; Service: General Surgery; Laterality: N/A; Social History: Social History Tobacco Use Smoking status: Every Day Types: Cigarettes Smokeless tobacco: Never Substance Use Topics Alcohol use: Never Drug use: Yes Types: Marijuana Comment: weekly Family History: No family history on file. 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 Available past medical, social and family history reviewed. Objective Vitals: Temp: [98 ??F (36.7 ??C)] 98 ??F (36.7 ??C) Pulse: [82-111] 90 Resp: [18-35] 27 BP: (79-116)/(59-82) 113/82 Intake/Output: Intake/Output Summary (Last 24 hours) at 04/24/2025 1736 Last data filed at 04/24/2025 1723 Gross per 24 hour Intake 2455 ml Output -- Net 2455 ml Physical Exam Vitals reviewed. HENT: Head: Normocephalic and atraumatic. Eyes: Extraocular Movements: Extraocular movements intact. Conjunctiva/sclera: Conjunctivae normal. Pupils: Pupils are equal, round, and reactive to light. Cardiovascular: Rate and Rhythm: Normal rate and regular rhythm. Pulmonary: Effort: Pulmonary effort is normal. No respiratory distress. Abdominal: General: Bowel sounds are normal. Musculoskeletal: Cervical back: Normal range of motion. Right lower leg: No edema. Left lower leg: No edema. Neurological: Mental Status: He is alert and oriented to person, place, and time. Psychiatric: Mood and Affect: Mood normal. Behavior: Behavior normal. Thought Content: Thought content normal. Recent Labs: Results for orders placed or performed during the hospital encounter of 04/24/25 (from the past 24 hours) ECG 12 lead Status: None (In process) Collection Time: 04/24/25 3:54 PM Result Value Ref Range VENTRICULAR RATE EKG/MIN 104 BPM ATRIAL RATE (MCT) 104 BPM OK Interval 129 ms QRS-INTERVAL (MSEC) 79 ms QT Interval 321 ms QTC Interval 422 ms P [place] 72 degrees R AXIS (MCT) 78 degrees T Wave [place] 59 degrees [place] Diagnosis Sinus tachycardia Nonspecific T wave abnormality Abnormal ECG No previous ECGs available CBC with automated diff Status: Abnormal Collection Time: 04/24/25 4:07 PM Result Value Ref Range WBC 11.8 (H) 4.2 - 9.1 K/??L RBC 4.40 (L) 4.63 - 6.08 M/??L Hemoglobin 12.1 (L) 13.7 - 17.5 GM/DL Hematocrit 38.1 (L) 40.1 - 51.0 % MCV 87 79 - 92 fL MCH 27.5 25.7 - 32.2 pg MCHC 31.8 (L) 32.3 - 36.5 GM/DL RDW 14.6 (H) 11.6 - 14.4 % Platelets 597 (H) 140 - 375 K/CU MM MPV 8.1 (L) 9.4 - 12.4 fL % Neutros 70 (H) 34 - 68 % % Lymphs 17 (L) 22 - 53 % % Monos 10 5 - 12 % % Eos 2 1 - 7 % % Baso 1 0 - 1 % NRBC Absolute <0.01 0 - 0.012 K/ul # Neutros 8.30 (H) 1.78 - 5.38 K/??L # Lymphs 1.99 1.32 - 3.57 K/??L # Monos 1.16 (H) 0.30 - 0.82 K/??L # Eos 0.21 0.04 - 0.54 K/??L # Baso 0.10 (H) 0.01 - 0.08 K/??L Immature Granulocytes-Relative 0.40 0.01 - 0.43 % # IG 0.05 (H) 0.00 - 0.03 K/uL Comprehensive metabolic panel Status: Abnormal Collection Time: 04/24/25 4:07 PM Result Value Ref Range Sodium 143 136 - 145 meq/L Potassium 4.5 3.4 - 5.1 meq/L Chloride 108 98 - 112 meq/L CO2 24 22 - 29 meq/L Calcium 9.3 8.4 - 10.2 mg/dL Glucose 99 82 - 115 mg/dL BUN 10.0 8.4 - 25.7 mg/dL Creatinine 1.10 0.72 - 1.25 mg/dL BUN/Creatinine 9 8 - 20 eGFR (mL/min/1.73m2) 74 >=60 mL/min/1.73m2 Albumin 3.3 (L) 3.5 - 5.0 g/dL Alkaline Phosphatase 92 40 - 150 U/L ALT 10 <=45 U/L AST 20 11 - 34 U/L Total Bilirubin 0.2 0.2 - 1.2 mg/dL Protein, Total 8.2 6.4 - 8.3 g/dL Globulin 4.9 (H) 2.5 - 4.1 g/dL Anion Gap 16 (H) 4 - 12 A/G Ratio 0.7 0.7 - 1.9 Osmolality Calc 284.1 mOsm/kg Lactic Acid with reflex (SJ) Status: Abnormal Collection Time: 04/24/25 4:07 PM Result Value Ref Range Lactic Acid Level (mmol/L) 2.4 (HH) 0.5 - 2.2 mmol/L Microbiology Results (last 7 days) Procedure Component Value Units Date/Time Blood Culture [[id number]] Collected: 04/24/25 1607 Order Status: Resulted Specimen: Blood Updated: 04/24/25 1614 Blood Culture [[id number]] Collected: 04/24/25 1607 Order Status: Resulted Specimen: Blood Updated: 04/24/25 1614 Radiology: Radiology Results (last 3 days) Procedure Component Value Units Date/Time XR chest AP portable [[id number]] Collected: 04/24/25 1640 Order Status: Completed Updated: 04/24/25 1656 Narrative: PORTABLE CHEST 04/24/2025 4:19 PM HISTORY: Sepsis. COMPARISON: April 11, 2025. FINDINGS: The heart is normal in size. The patient is status post sternotomy for CABG. The mediastinum is unremarkable. The lungs are clear. There is no pneumothorax. Impression: No acute cardiopulmonary process. Images reviewed, interpreted, and dictated by Dr. Davi Perez. Transcribed by Mary Beth Ram All Documented Medications: Scheduled Meds: cefTRIAXone 1 g intravenous Once 1 g at 04/24/25 1730 [START ON 04/25/2025] DAPTOmycin (CUBICIN) 350 mg in sodium chloride 0.9% (NS) non-DEHP 50 mL IVPB 350 mg intravenous Q24H DAPTOmycin 350 mg intravenous Once metroNIDAZOLE 500 mg intravenous Once Continuous Infusions: Current Facility-Administered Medications Medication Dose Route Frequency Provider Last Rate Last Admin acetaminophen (TYLENOL) tablet 1,000 mg 1,000 mg oral Q6H PRN Te Hope PA-C cefTRIAXone (ROCEPHIN) 1 g in sodium chloride 0.9 % (NS) 50 mL SHANELLE IVPB 1 g intravenous Once Hudson Hilario, [employer] 100 mL/hr at 04/24/25 1730 1 g at 04/24/25 1730 [START ON 04/25/2025] DAPTOmycin (CUBICIN) 350 mg in sodium chloride 0.9% (NS) non-DEHP 50 mL IVPB 350 mg intravenous Q24H Hudson Hilario, [employer] CONSULTANT DAPTOmycin 350 mg in 0.9 % sodium chloride 50 mL infusion (premix) 350 mg intravenous Once Hudson [place], [employer] CONSULTANT hydrALAZINE (APRESOLINE) injection 10 mg 10 mg intravenous Q6H PRN Te Hope PA-C HYDROcodone-acetaminophen (NORCO) 7.5-325 mg per tablet 1 tablet 1 tablet oral Q6H PRN Te Hope PA-C magnesium sulfate IVPB 2 g in sterile water 50 mL (premix) 2 g intravenous Daily PRN Te Hope PA-C magnesium sulfate IVPB 2 g in sterile water 50 mL (premix) 2 g intravenous BID PRN Te Hope PA-C melatonin tablet 3 mg 3 mg oral Every Night PRN Te Hope PA-C metroNIDAZOLE (FLAGYL) IVPB 500 mg in sodium chloride 0.9 % 100 mL (premix) 500 mg intravenous OnceTyler [place], [employer] CONSULTANT morphine injection 2 mg 2 mg intravenous Q6H PRN Te Hope PA-C naloxone (NARCAN) injection 0.2 mg 0.2 mg intravenous Q2 Min PRN Te Hope PA-C ondansetron (ZOFRAN-ODT) disintegrating tablet 4 mg 4 mg oral Q8H PRN Te Hope PA-C Or ondansetron (ZOFRAN) injection 4 mg 4 mg intravenous Q8H PRN Te Hope PA-C potassium chloride (KLOR-CON) ER tablet 40 mEq 40 mEq oral 4x Daily PRN Te Hope PA-C potassium chloride IVPB 10 mEq in 100 mL sterile water (premix) 10 mEq intravenous Q1H PRN Te Hope PA-C sodium chloride flush 10 mL 10 mL intravenous PRN Marixa Pennington APRN Current Outpatient Medications Medication Sig Dispense Refill aspirin 325 MG EC tablet Take 1 tablet (325 mg total) by mouth nightly. atorvastatin (LIPITOR) 40 MG tablet Take 1 tablet (40 mg total) by mouth nightly. furosemide (LASIX) 20 MG tablet Take 1 tablet (20 mg total) by mouth daily as needed (for Edema/Swelling). metFORMIN (GLUCOPHAGE-XR) 500 MG 24 hr tablet Take 1 tablet (500 mg total) by mouth daily with dinner. metoprolol succinate (TOPROL-XL) 50 MG 24 hr tablet Take 1 tablet (50 mg total) by mouth nightly. QUEtiapine (SEROquel) 200 MG tablet Take 1 tablet (200 mg total) by mouth 2 (two) times daily. spironolactone (ALDACTONE) 25 MG tablet Take 1 tablet (25 mg total) by mouth nightly. tiZANidine (ZANAFLEX) 4 MG tablet Take 1 tablet (4 mg total) by mouth every 8 (eight) hours as needed for muscle spasms. valsartan (DIOVAN) 40 MG tablet Take 1 tablet (40 mg total) by mouth 2 (two) times daily This has replaced lisinopril--do NOT take both medications together . Assessment and Plan #Sepsis, present on admission #S/p LAR with takedown of colovesical fistula and diverting loop ileostomy - Patient meets sepsis criteria with 11.8 WBC, lactic acid 2.4, tachycardic -Consult colorectal surgery - Consult infectious disease - Continue last antibiotic regimen from ID including daptomycin, Rocephin, Flagyl - Ordered a.m. CBC, CMP, CRP #Diabetes mellitus type 2 - Insulin sliding scale - Hold oral agents - Consistent carb diet when not n.p.o. #Hypertension - Continue metoprolol 50 mg daily-spironolactone 25 mg daily, valsartan 40 mg twice daily #Hyperlipidemia - Continue atorvastatin 40 mg daily #Anemia - Hemoglobin 12.1 - Continue to monitor H/H, transfuse for hemoglobin less than 7. #Tobacco dependence, ongoing - Tobacco cessation counseling - Nicotine patch as needed -Laboratory work and pertinent imaging results independently reviewed as noted in HPI. -Continue to monitor electrolytes with AM metabolic panel and replete as appropriate. -Monitor WBC count to assess for developing / worsening infection and hemoglobin with AM CBC. -Intermittent BP and pulse oximetry monitoring per unit parameters. -Continue appropriate home medications for chronic problems as ordered below. -After reviewing this patient's presentation, labs, imaging, and medical record and discussion withsupervising physician, we have to decided to admit them. They will require inpatient admission requiring >48hrs for work up and stabilization of their condition. - High complexity of medical decision. -Evaluated 04/24/2025, 5:36 PM I, Te Hope, have personally reviewed pertinent laboratory, EKG, and imaging results, as wellas documentation in the patient's EMR and discussed with supervising physician as necessary. Laboratory and imaging orders per the above plan have been reviewed and addressed, please see orders below. Home medications have been reviewed and restarted if appropriate. Patient's case, assessment, and plan have been discussed on this date with ED provider. Glycemic control: Goal BS between 110-180 with ISS Nutrition: Orders Placed This Encounter Procedures Consistent Carbohydrate VTE prophylaxis: SCDs AM orders including labs/radiology/procedures placed. Code Status: Current Code Status Full code Disposition: Admit Prognosis: TBD Signed: Te Hope PA-C 04/24/2025, 5:36 PM Voice cook dinner technology (DivX) is used for dictation of this note and sound-alike words might be erroneously placed despite reviewing the note for accuracy. Errors in dictation mayreflect use of voice recognition software and not all errors in cook dinner may have been detected prior to signing. Active Orders Lab Lactic acid (SJ) Frequency: Once Number of Occurrences: 1 Occurrences Magnesium Frequency: PRN Number of Occurrences: Until Specified Order Comments: If Mg less than or equal to 1.7 mg/dL previous day Potassium Frequency: PRN Number of Occurrences: Until Specified Order Comments: If Potassium Level Less than 3.5 mmol/L. Draw 1 hour after replacement and in the AM Urinalysis, Reflex Microscopic and Culture If Indicated - Cath Frequency: STAT Number of Occurrences: 1 Occurrences Diet Consistent Carbohydrate Frequency: Effective Now Number of Occurrences: Until Specified Order Comments: 60 gm CHO (2140-9020 kcal) Nursing Ambulate TID Frequency: Until Discontinued Number of Occurrences: Until Specified Apply sequential compression device Frequency: Until Discontinued Number of Occurrences: Until Specified Continuous Pulse Oximetry Frequency: Until Discontinued Number of Occurrences: Until Specified Intake and Output Frequency: Q Shift Number of Occurrences: Until Specified Measure blood pressure Frequency: Q30 Min Number of Occurrences: Until Specified Notify provider of change in patient condition Frequency: Until Discontinued Number of Occurrences: Until Specified Notify provider per standard parameters Frequency: Until Discontinued Number of Occurrences: Until Specified Telemetry monitoring for Sepsis Frequency: Until Discontinued Number of Occurrences: 48 Hours Vital Signs Frequency: Q4H Number of Occurrences: Until Specified Code Status Full code Frequency: Continuous Number of Occurrences: Until Specified Respiratory Care Oxygen Therapy -Nasal Cannula Frequency: Continuous Number of Occurrences: Until Specified Admission Admit to inpatient Frequency: Once Number of Occurrences: 1 Occurrences Medications acetaminophen (TYLENOL) tablet 1,000 mg Frequency: Q6H PRN Dose: 1,000 mg Route: oral cefTRIAXone (ROCEPHIN) 1 g in sodium chloride 0.9 % (NS) 50 mL SHANELLE IVPB Frequency: Once Dose: 1 g Route: intravenous DAPTOmycin (CUBICIN) 350 mg in sodium chloride 0.9% (NS) non-DEHP 50 mL IVPB Frequency: Q24H Dose: 350 mg Route: intravenous DAPTOmycin 350 mg in 0.9 % sodium chloride 50 mL infusion (premix) Frequency: Once Dose: 350 mg Route: intravenous hydrALAZINE (APRESOLINE) injection 10 mg Frequency: Q6H PRN Dose: 10 mg Route: intravenous HYDROcodone-acetaminophen (NORCO) 7.5-325 mg per tablet 1 tablet Frequency: Q6H PRN Dose: 1 tablet Route: oral magnesium sulfate IVPB 2 g in sterile water 50 mL (premix) Frequency: Daily PRN Dose: 2 g Route: intravenous magnesium sulfate IVPB 2 g in sterile water 50 mL (premix) Frequency: BID PRN Dose: 2 g Route: intravenous melatonin tablet 3 mg Frequency: Every Night PRN Dose: 3 mg Route: oral metroNIDAZOLE (FLAGYL) IVPB 500 mg in sodium chloride 0.9 % 100 mL (premix) Frequency: Once Dose: 500 mg Route: intravenous morphine injection 2 mg Frequency: Q6H PRN Dose: 2 mg Route: intravenous naloxone (NARCAN) injection 0.2 mg Frequency: Q2 Min PRN Dose: 0.2 mg Route: intravenous ondansetron (ZOFRAN) injection 4 mg Linked Order: Or Frequency: Q8H PRN Dose: 4 mg Route: intravenous ondansetron (ZOFRAN-ODT) disintegrating tablet 4 mg Linked Order: Or Frequency: Q8H PRN Dose: 4 mg Route: oral potassium chloride (KLOR-CON) ER tablet 40 mEq Frequency: 4x Daily PRN Dose: 40 mEq Route: oral potassium chloride IVPB 10 mEq in 100 mL sterile water (premix) Frequency: Q1H PRN Dose: 10 mEq Route: intravenous sodium chloride flush 10 mL Frequency: PRN Dose: 10 mL Route: intravenous - Cosigned by Hilary Dumont MD at 04/25/2025 4:46 PM EDT documented in this encounter Consult Notes * Sara Moeller, MS, RD, LD - 05/01/2025 11:18 AM EDT Dietitian Screening Note The patient is a 65 y.o. male presenting for further evaluation and management of sepsis after pt was instructed by colorectal surgeon to report to ED. Present on Admission: Sepsis (HCC) (Admitting Diagnoses) Nutrition Evaluation Type: Initial Assessment Reason for Evaluation: LOS Subjective Comments: 05/01: Pt on CCHO diet with fair-good appetite and intakes of 75% x 1 meal per EMR (last intake % recorded 04/25). On RA. No skin breakdown noted. Reviewed labs/meds. GI wnls, +Ostomy with 400 mL output in last 24 hours. Reports no leakage or concerns per WOCN. Per CM, [facility], but is experiencing financial barriers to discharge. Noted 9% weight decrease in >1 year (not significant). No nutrition diagnosis at this time. Will rescreen in 7- 10 days or available prn. Past Medical/Surgical History: Past Medical History: Diagnosis [...] STENT INSERTION; Surgeon: Rebekah Lockhart MD; Location: [facility]; Service: General Surgery; Laterality: Bilateral; HAND SURGERY Bilateral HERNIA REPAIR LAPAROSCOPY,LOW ANTERIOR RESECTION N/A 04/09/2025 Procedure: (OPEN LOW ANTERIOR RESECTION WITH TAKEDOWN OF COLOVESICAL FISTULA DIVERTING LOOP ILEOSTOMY VENTRAL HERNIA REPAIR AND CYSTOSCOPY AND STENTS) EXPLANTS OF MESH, REDO LAR,EX LAP LYSIS OF ADHESIONS; Surgeon: Rebekah Lockhart MD; Location: [facility]; Service: General Surgery; Laterality: N/A; Anthropometrics: Height: 175.3 cm (5' 9 ) Weight: 78.5 kg (173 lb) Wt hx: Wt Readings from Last 20 Encounters: 04/24/25 78.5 kg (173 lb) 04/09/25 80.5 kg (177 lb 6.1 oz) 03/12/25 79.8 kg (176 lb) 02/07/24 86.2 kg (190 lb) Body mass index is 25.55 kg/m??. Nutrition Monitoring and Goals: - Continue CCHO diet. RD available to add ONS prn. Goal: >50% PO intakes - Monitor bowel fxn, adjust bowel regimen prn (+ostomy) Goal: normal BM's - Monitor BG levels, recommend adjusting insulin prn. Goal: BG 100-180mg/dL Nutrition Risk Level: No Risk Carmen Dailey RD Eligible Co-signed by: Sara Moeller MS, RD, LD * Karen Barrios RN - 04/26/2025 12:11 PM EDTAssociated Order(s): IP CONSULT TO CARE COORDINATION; FS_MODEL_IP IP CONSULT TO HOME CARE NEEDS CM acknowledge consult for Home iv antibiotics. Pt states he wants to go home and in the past helped his do home IV antibiotics. CM discussed preference and pt indicated not preferences at this time. CM sent referrals to all Home health in the area and all declined stating out of network or don't take or capacity of [facility] insurance. CM called [facility] who indicated they do not go that area. CM attempted to contact [facility] multiple times and no answer. CM sent to [facility] for IV medication and education. Also might need to follow at out pt facility. Pt indicated he is independent and drives. 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 Total weekly cost $343.74 [facility] to discuss with pt. Pt states unable to afford amount per week. CM offered [facility] [place] [facility] and pt declined . sTates he just wants to go home. States even if he dies without IV antibiotic. Pt also aware CM unable to obtain home health. CM notified Care team and attending. CM to follow. * Rebekah Lockhart MD - 04/25/2025 5:17 PM EDTAssociated Order(s): Inpatient consult to Colorectal Surgery Inpatient consult to Colorectal Surgery Consult performed by: Rebekah Lockhart MD Consult ordered by: Te Hope PA-C History of Present Illness: Levar Rand is a 65 y.o. male -He had findings consistent with recurrent diverticulitis with colovesicular fistula for over a year. He is now s/p exploratory laparotomy, lysis of adhesions, takedown of colovesicular fistula, colorectal anastomosis and diverting loop ileostomy on 04/09/25. Incidentally (unknown to myself and the patient) he had an infected left inguinal groin mesh. 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 The presumed diverticulitis colovesicular fistula was actually chronic abscess from hisinfected groin causing a fistula to the bladder and the colon. -After his redo LAR he underwent percutaneous drainage of his left groin abscess via IR and has continued Cordon catheter placement. The patient left AMA from the hospital. Patient is doing fair today. His pain is well-controlled. He actually feels better with some IV fluids. Denies any fevers or chills. He is frustrated with his situation. He states he just wants to gohome and be done with it. I talked about how he put himself in a bad situation with refusing preoperative imaging as well as leaving AGAINST MEDICAL ADVICE and that it is hard for physicians to want to take on the complex care when patients do not follow through with the recommendations. It puts both the patient and the providers in it difficult situation which leads to poor outcomes. Past Medical History: He has a past [...] and CYSTOSCOPY,INSERTION URETERAL STENTS (Bilateral, 04/09/2025). Social History: He reports that he has [...] by mouth daily as needed (for Edema/Swelling). metFORMIN (GLUCOPHAGE-XR) 500 MG 24 hr tablet Take 1 tablet (500 mg total) by mouth daily with dinner. metoprolol succinate (TOPROL-XL) 50 MG 24 hr tablet Take 1 tablet (50 mg total) by mouth nightly. QUEtiapine (SEROquel) 200 MG tablet Take 1 tablet (200 mg total) by mouth 2 (two) times daily. spironolactone (ALDACTONE) 25 MG tablet Take 1 tablet (25 mg total) by mouth nightly. tiZANidine (ZANAFLEX) 4 MG tablet Take 1 tablet (4 mg total) by mouth every 8 (eight) hours as needed for muscle spasms. valsartan (DIOVAN) 40 MG tablet Take 1 tablet (40 mg total) by mouth 2 (two) times daily This has replaced lisinopril--do NOT take both medications together . Review of Systems Constitutional: Positive for activity change, appetite change, chills and fatigue. Negative for diaphoresis and fever. HENT: Negative. Eyes: Negative. Respiratory: Negative. Cardiovascular: Negative. Gastrointestinal: Positive for abdominal pain. Negative for abdominal distention, anal bleeding, blood in stool, constipation, diarrhea, nausea, rectal pain and vomiting. Endocrine: Negative. Genitourinary: Positive for dysuria. Musculoskeletal: Negative. Skin: Negative. Allergic/Immunologic: Negative. Neurological: Negative. Hematological: Negative. Psychiatric/Behavioral: Negative. Vitals: Blood pressure 104/70, pulse 67, temperature 98.4 ??F (36.9 ??C), resp. rate 27, height 1.753 m (5'9 ), weight 78.5 kg (173 lb), SpO2 98%. Physical Exam Vitals reviewed. HENT: Head: Normocephalic. Nose: Nose normal. Mouth/Throat: Mouth: Mucous membranes are moist. Eyes: Pupils: Pupils are equal, round, and reactive to light. Cardiovascular: Rate and Rhythm: Normal rate. Pulses: Normal pulses. Pulmonary: Effort: Pulmonary effort is normal. Abdominal: Comments: Abdomen is soft, minimally tender. Nondistended. Incision is clean dry and intact. Ileostomy is pink patent and productive. Cordon catheter with urine. Left groin drain with urine/murky fluid Genitourinary: Penis: Normal. Musculoskeletal: General: Normal range of motion. Skin: General: Skin is warm. Neurological: General: No focal deficit present. Mental Status: He is alert. Psychiatric: Mood and Affect: Mood normal. Relevant Results: WBC improved now Assessment & Plan Principal Problem: Sepsis (HCC) 65-year-old male with history of prior Anthony's and subsequent reversal who presented with what appeared to be recurrent diverticulitis with colovesicular fistula. He is now status post exploratory laparotomy, lysis of adhesions, takedown of colovesicular fistula, redo colorectal anastomosis with diverting loop ileostomy creation incidentally identify an infected left inguinal groin mesh. This was the true etiology for his fistula. All performed on 04/09/2025 On 04/11/2025 underwent percutaneous drainage of his infected left groin mesh. 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 Hewas readmitted due to concerns of untreated bladder mesh infection leading to sepsis. Plan No surgical plans during this hospital stay Appreciate Armando infectious disease seeing him I discussed his case with our local urologist to think he would be better served by receiving care at a tertiary facility such as [facility] Once a good antibiotic plan is set up for him in the outpatient setting, I would be comfortable with discharge with referral to urology/general surgery He voices understanding that I am not willing or appropriate to fix his bladder fistula to the leftinfected groin mesh Electronically signed by Rebekah Lockhart MD 04/25/2025 at 5:17 PM * Murtaza Amato MD - 04/25/2025 5:05 PM EDTAssociated Order(s): FS_MODEL_IP IP CONSULT TO INFECTIOUS DISEASES Images from the original note were not included. [facility] INFECTIOUS DISEASE CONSULT/INITIAL HOSPITAL VISIT Levar Rand 1960 [id number] Date of consult: 04/25/2025 Admit date: 04/24/2025 Requesting Provider: @[email or web address]@ Evaluating physician: Murtaza Amato MD Reason for Consultation: Left groin mesh infection, abscess, colovesical fistula, previous culturesfrom 8/6 surgery positive for Enterococcus faecium, Klebsiella pneumonia, Clostridium Chief Complaint: Subjective History of present illness: Patient is a 65 y.o. Yr old male with a history of diabetes mellitus type 2, essential hypertension, hyperlipidemia, ongoing smoking, perforated diverticulitis with Zina procedure 2011 with reversal 2011, incisional hernia status post ventral hernia repair with Garnett-Pablo 2013, and colovesical fis sandra. Possible need for pacemaker but held off because of fistula. The patient was admitted for an elective repair to [facility] 04/09/2025. He underwent surgery with Dr. Rebekah Lockhart, and Dr. Asim Smith on 04/09/2025. There was no rebekah abscess or significant purulence noted. Therewas the presence of mesh noted from previous repairs of inguinal and abdominal hernias. Mesh was partially excised. The patient left AMA from hospital without a treatment course of antibiotics. He still had drainage surgical tubes in place and Cordon catheter. Patient was convinced by Dr. Lockharton an outpatient visit to return to hospital for admission. Patient had had increasing abdominal pain. He has no other localizing signs or symptoms of infection. I was reconsulted on 04/25/2025. No reported history of ill contacts, zoonotic [...] STENT INSERTION; Surgeon: Rebekah Lockhart MD; Location: [facility]; Service: General Surgery; Laterality: Bilateral; HAND SURGERY Bilateral HERNIA REPAIR LAPAROSCOPY,LOW ANTERIOR RESECTION N/A 04/09/2025 Procedure: (OPEN LOW ANTERIOR RESECTION WITH TAKEDOWN OF COLOVESICAL FISTULA DIVERTING LOOP ILEOSTOMY VENTRAL HERNIA REPAIR AND CYSTOSCOPY AND STENTS) EXPLANTS OF MESH, REDO LAR,EX LAP LYSIS OF ADHESIONS; Surgeon: Rebekah Lockhart MD; Location: [facility]; Service: General Surgery; Laterality: N/A; Pediatric History Patient Parents Not on file Other Topics Concern Not on file Social History Narrative Not on file Positive for smoking, no alcohol or drug use, 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 No Known Allergies There is no immunization history on file for this patient. Medication: @Scheduled Meds: aspirin 325 mg oral Every Night 325 mg at 04/24/252005 atorvastatin 40 mg oral Every Night 40 mg at 04/24/252006 cefTRIAXone 1 g intravenous Daily IVPB Stopped at 04/25/25 1042 DAPTOmycin (CUBICIN) 350 mg in sodium chloride 0.9% (NS) non-DEHP 50 mL IVPB 350 mg intravenous Q24H DAPTOmycin 350 mg intravenous Once insulin lispro 0-18 Units subcutaneous 4x Daily AC metoprolol succinate 50 mg oral Every Night 50 mg at 04/24/252006 metroNIDAZOLE 500 mg intravenous Q8H 500 mg at 04/25/25 1626 QUEtiapine 200 mg oral BID 200 mg at 04/25/25 0937 [Held by provider] spironolactone 25 mg oral Every Night 25 mg at 04/24/252005 [Held by provider] valsartan 40 mg oral BID 40 mg at 04/24/252005 Continuous Infusions: Current Facility-Administered Medications Medication Dose Route Frequency Provider Last Rate Last Admin acetaminophen (TYLENOL) tablet 1,000 mg 1,000 mg oral Q6H PRN Te Hope PA-C aspirin EC tablet 325 mg 325 mg oral Every Night Te Hope PA-C 325 mg at 04/24/252005 atorvastatin (LIPITOR) tablet 40 mg 40 mg oral Every Night Te Hope PA-C 40 mg at 04/24/252006 cefTRIAXone (ROCEPHIN) 1 g in sodium chloride 0.9 % (NS) 50 mL SHANELLE IVPB 1 g intravenous Daily Te Hope PA-C IVPB Stopped at 04/25/25 1042 DAPTOmycin (CUBICIN) 350 mg in sodium chloride 0.9% (NS) non-DEHP 50 mL IVPB 350 mg intravenous Q24H [place], [employer] DAPTOmycin 350 mg in 0.9 % sodium chloride 50 mL infusion (premix) 350 mg intravenous Once [place], [employer] dextrose 50% (D50W) injection 25 g 25 g intravenous Q15 Min PRN Te Hope PA-C glucagon injection 1 mg 1 mg intraMUSCULAR Q15 Min PRN Te Hope PA-C glucose chew tab 16 g 16 g oral Q15 Min PRN Te Hope PA-C hydrALAZINE (APRESOLINE) injection 10 mg 10 mg intravenous Q6H PRN Te Hope PA-C HYDROcodone-acetaminophen (NORCO) 7.5-325 mg per tablet 1 tablet 1 tablet oral Q6H PRN Te Hope PA-C 1 tablet at 04/25/25 0949 insulin lispro (HUMALOG, ADMELOG) injection 0-18 Units 0-18 Units subcutaneous 4x Daily AC Te Hope PA-C magnesium sulfate IVPB 2 g in sterile water 50 mL (premix) 2 g intravenous Daily PRN Te Hope PA-C magnesium sulfate IVPB 2 g in sterile water 50 mL (premix) 2 g intravenous BID PRN Te Hope PA-C melatonin tablet 3 mg 3 mg oral Every Night PRN Te Hope PA-C 3 mg at 04/24/252005 metoprolol succinate (TOPROL-XL) 24 hr tablet 50 mg 50 mg oral Every Night Te Hope PA-C 50 mg at 04/24/252006 metroNIDAZOLE (FLAGYL) IVPB 500 mg in sodium chloride 0.9 % 100 mL (premix) 500 mg intravenous Q8H Te Hope PA-C 100 mL/hr at 04/25/25 1626 500 mg at 04/25/25 1626 morphine injection 2 mg 2 mg intravenous Q6H PRN Te Hope PA-C 2 mg at 04/24/252004 naloxone (NARCAN) injection 0.2 mg 0.2 mg intravenous Q2 Min PRN Te Hope PA-C ondansetron (ZOFRAN-ODT) disintegrating tablet 4 mg 4 mg oral Q8H PRN Te Hope PA-C Or ondansetron (ZOFRAN) injection 4 mg 4 mg intravenous Q8H PRN Te Hope PA-C potassium chloride (KLOR-CON) ER tablet 40 mEq 40 mEq oral 4x Daily PRN Te Hope PA-C potassium chloride IVPB 10 mEq in 100 mL sterile water (premix) 10 mEq intravenous Q1H PRN Te Hope PA-C QUEtiapine (SEROquel) tablet 200 mg 200 mg oral BID Te Hope PA-C 200 mg at 04/25/25 0937 sodium chloride flush 10 mL 10 mL intravenous PRN Marixa Pennington APRN [Held by provider] spironolactone (ALDACTONE) tablet 25 mg 25 mg oral Every Night Te Hope PA-C 25 mg at 04/24/252005 tiZANidine (ZANAFLEX) tablet 4 mg 4 mg oral Q8H PRN Te Hope PA-C 4 mg at 04/25/25 0945 [Held by provider] valsartan (DIOVAN) tablet 40 mg 40 mg oral BID Te Hope PA-C 40 mg at 04/24/252005 PRN Meds:.@[email or web address]@ Please refer to the medical [...] hematemesis. Denies jaundice or chronic liver disease. Some abdominal pain as per HPI. -- No dysuria, hematuria, or flank pain. [...] legs. No seizures. Skin--No rashes or lesions, some left groin drainage Physical Exam: Vital Signs Temp: [97.5 ??F (36.4 ??C)-98.4 ??F (36.9 ??C)] 98.4 ??F (36.9 ??C) Pulse: [54-90] 67 BP: (93-144)/(59-89) 104/70 Blood pressure 104/70, pulse 67, temperature 98.4 ??F (36.9 ??C), resp. rate 27, height 1.753 m (5'9 ), weight 78.5 kg (173 lb), SpO2 98%. GENERAL: Awake and alert, in moderate distress. Appears older than stated age. HEENT: Normocephalic, atraumatic. Oropharynx without thrush. Dentition [...] nondistended. No appreciable HSM. Bowel sounds normal. Obese, without rebound. GENITAL: No external lesions, breasts without masses, back straight, no CVAT, rectal external without lesions. SKIN: Warm and dry without cutaneous eruptions. No nodules. Surgical wounds with some drainage, no surrounding crepitus or bullae PSYCHIATRIC: Mental status lucid. No confusion. EXT: No cellulitic change. Normal ROM. NEURO: Oriented to name, CN 2 to 12 intact, DTR 1 + and symmetric, sensory intact to LT upper and lower extremitiy, motor 5/5 upper and lower extremity, cerebellar and gait not tested. Ileostomy 04/25/2025 Results Review: I reviewed the patient's new clinical results. Recent Labs Lab(s) Units 04/25/25 0716 04/24/25 1607 WBC K/??L 9.1 11.8* HGB GM/DL 10.0* 12.1* HCT % 31.6* 38.1* PLT K/CU MM 420* 597* Recent Labs Lab(s) Units 04/25/25 1515 04/25/25 0501 04/25/25 0421 NA meq/L -- -- 140 K meq/L -- -- 4.6 CL meq/L -- -- 112 CO2 meq/L -- -- 21* BUN mg/dL -- -- 9.3 CREATININE mg/dL -- -- 1.04 GLUCOSE mg/dL 116* < > 98 CALCIUM mg/dL -- -- 8.3* < > = values in this interval not displayed. Recent Labs Lab(s) Units 04/25/25 0421 ALKPHOS U/L 77 BILITOT mg/dL 0.3 ALT U/L <7 AST U/L 20 No results for input(s): SEDRATE in the last 168 hours. Recent Labs Lab(s) Units 04/25/25 0421 CRP mg/L 6.6* No results for input(s): VANCOTROUGH , VANCORANDOM in the last 168 hours. No results for input(s): LACTATE in the last 168 hours. Estimated Creatinine Clearance: 69.9 mL/min (by C-G formula based on SCr of 1.04 mg/dL). @LABRCNTIP (cpk,ast,alt,alkaline phosphatase)@ Microbiology: Microbiology Results (last 7 days) Procedure Component Value Units Date/Time Blood Culture [[id number]] Collected: 04/24/25 160 Order Status: Completed Specimen: Blood Updated: 04/25/25 170 Result No growth in 24 hours Blood Culture [[id number]] Collected: 04/24/25 1607 Order Status: Completed Specimen: Blood Updated: 04/25/25 170 Result No growth in 24 hours Radiology: Radiology Results (last 3 days) Procedure Component Value Units Date/Time XR chest AP portable [[id number]] Collected: 04/24/25 1640 Order Status: Completed Updated: 04/24/25 165 Narrative: PORTABLE CHEST 04/24/2025 4:19 PM HISTORY: Sepsis. COMPARISON: April 11, 2025. FINDINGS: The heart is normal in size. The patient is status post sternotomy for CABG. The mediastinum is unremarkable. The lungs are clear. There is no pneumothorax. Impression: No acute cardiopulmonary process. Images reviewed, interpreted, and dictated by Dr. Davi Perez. Transcribed by Mary Beth Ram IMPRESSION: Left groin abscess with likely chronically infected or recurrently infected Garnett-Pablo mesh previously placed 2013, and in the late with history of recurrent infection per new history. 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 Organisms isolatedincluded Klebsiella, Enterococcus, Clostridium from 04/11 surgery. Partially treated after leaving AMA. Patient very resource constrained to participate in his care. Colovesical fistula repair 04/09/2025, related to above. Diabetes mellitus type 2 with increased risk for infection. Noncompliance, high risk given resource limitations. Patient stated he would have difficulty returning for follow-up appointments because he could not afford the gasoline. Previously left AMA from [facility] with Cordon in place and surgical drains in place. RECOMMENDATIONS: Diagnostically, continue to follow patient's physical exam, CBC, CMP, CRP, radiographic studies as needed. CPK while on daptomycin. Therapeutically, continue daptomycin, ceftriaxone, and metronidazole, with anticipated duration until 05/25/2025 and reassess. PICC line for long-term venous access. Supportive care. Patient will need further evaluation by surgical services potentially at the [facility] for his complex Garnett-Pablo mesh revision and urologic procedures. I discussed the patient's findings and my recommendations with the patient, nursing, and Dr. Lockhart. Thank you for asking me to see [...] antimicrobial stewardship and resistance for the patient. Case management orders: Please arrange for outpatient antibiotics. Medication/Dose/Route/Frequency: Daptomycin 500 mg IV daily, ceftriaxone 2 g IV daily, metronidazole 500 mg p.o. 3 times daily End Date: 05/25/2025 diagnosis: Left groin abscess and mesh infection with Enterococcus, Klebsiella,Clostridium status post previous resection of infected mesh 04/11/2025, and repair of colovesical fistula Labs Needed and Frequency: CBC with differential, CMP, CRP, CPK weekly while on IV antibiotics. I approve us of standard hypersensitivity medications: Access existing central venous access device or insert peripheral IV as needed. Restart peripheral IV catheter (as needed) for any signs of redness, pain, swelling. Murtaza Amato MD 04/25/2025 documented in this encounter ED Notes * Belem Tran RN - 04/24/2025 3:42 PM EDT Pt had abdominal sx on 04/09 and concerned about infection. Sent by surgeon after stables removed this morning. * Claude Arriaga MD - 04/24/2025 3:42 PM EDTAssociated Order(s): Critical Care Subjective Chief Complaint: Blood Infection 65 yr male presents to the ER with sepsis per the pt. The pt states that he had surgery recently and was seen by the MD this am and the alexandro was removed and he was instructed that he had sepsis and to come to the ER. The pt states that he has not had any fevers. The pt has not been taking emily antibiotics. The pt had abdominal surgery and has a drain in place. The pt is c/o pain 8-10. The pt states the ostomy and urostomy is new. Code sepsis called in triage. Patient was seen in triage for a medical screening examination. A brief history and physical examination was performed in triage to initiate a work-up. Rest of care was provided in main ED by a provider. Patient History Past Medical History: Diagnosis Date Anxiety CAD [...] STENT INSERTION; Surgeon: Rebekah Lockhart MD; Location: [facility]; Service: General Surgery; Laterality: Bilateral; HAND SURGERY Bilateral HERNIA REPAIR LAPAROSCOPY,LOW ANTERIOR RESECTION N/A 04/09/2025 Procedure: (OPEN LOW ANTERIOR RESECTION WITH TAKEDOWN OF COLOVESICAL FISTULA DIVERTING LOOP ILEOSTOMY VENTRAL HERNIA REPAIR AND CYSTOSCOPY AND STENTS) EXPLANTS OF MESH, REDO LAR,EX LAP LYSIS OF ADHESIONS; Surgeon: Rebekah Lockhart MD; Location: [facility]; Service: General Surgery; Laterality: N/A; No family history on file. Social History Tobacco Use Smoking status: Every Day Types: Cigarettes Smokeless tobacco: Never Substance Use Topics Alcohol use: Never I reviewed the HPI, ROS and PFSH documentation recorded by others in the medical record and supplemented my note as needed. Review of Systems Review of Systems Constitutional: Positive for activity change, chills and fatigue. Respiratory: Negative. Cardiovascular: Negative. Gastrointestinal: Positive for abdominal pain and nausea. Recent abdominal surgery. Abdominal incision. Ostomy and drain. Endocrine: Diabetic Genitourinary: Cordon Musculoskeletal: Negative. Skin: Negative. Abdominal incision Allergic/Immunologic: Negative. Neurological: Negative. Hematological: Negative. Psychiatric/Behavioral: Negative. Physical Exam Vitals: 04/24/25 1730 04/24/25 1745 04/24/25 1800 04/24/25 1815 BP: 124/88 130/86 Pulse: 82 80 76 76 Resp: Temp: TempSrc: SpO2: 99% 98% 98% 98% Weight: Height: Physical Exam Vitals and nursing note reviewed. Constitutional: General: He is not in acute distress. Appearance: He is well-developed and normal weight. He is not ill-appearing or toxic-appearing. HENT: Head: Normocephalic and atraumatic. Right Ear: Tympanic membrane, ear canal and external ear normal. Left Ear: Tympanic membrane, ear canal and external ear normal. Nose: Nose normal. Mouth/Throat: Mouth: Mucous membranes are moist. Pharynx: Oropharynx is clear. No oropharyngeal exudate or posterior oropharyngeal erythema. Eyes: Extraocular Movements: Extraocular movements intact. Pupils: Pupils are equal, round, and reactive to light. Cardiovascular: Rate and Rhythm: Regular rhythm. Tachycardia present. Pulses: Normal pulses. Heart sounds: Normal heart sounds. Pulmonary: Effort: Pulmonary effort is normal. Breath sounds: Normal breath sounds. Abdominal: General: Abdomen is flat. Bowel sounds are normal. There is no distension. Palpations: Abdomen is soft. Tenderness: There is abdominal tenderness. Comments: Abdominal incision with dressing in place Musculoskeletal: General: Normal range of motion. Cervical back: Neck supple. No tenderness. Skin: General: Skin is warm and dry. Capillary Refill: Capillary refill takes less than 2 seconds. Neurological: General: No focal deficit present. Mental Status: He is alert and oriented to person, place, and time. Psychiatric: Mood and Affect: Mood normal. Behavior: Behavior normal. Neurological Exam Mental Status Alert. Oriented to person, place, and time. Cranial Nerves CN III, IV, : Extraocular movements intact bilaterally. Pupils equal round and reactive to light bilaterally. Ortho Exam ED Course & MDM Medications sodium chloride flush 10 mL (has no administration in time range) DAPTOmycin (CUBICIN) 350 mg in sodium chloride 0.9% (NS) non-DEHP 50 mL IVPB (has no administrationin time range) DAPTOmycin 350 mg in 0.9 % sodium chloride 50 mL infusion (premix) (has no administration in time range) potassium chloride (KLOR-CON) ER tablet 40 mEq (has no administration in time range) potassium chloride IVPB 10 mEq in 100 mL sterile water (premix) (has no administration in time range) magnesium sulfate IVPB 2 g in sterile water 50 mL (premix) (has no administration in time range) magnesium sulfate IVPB 2 g in sterile water 50 mL (premix) (has no administration in time range) morphine injection 2 mg (has no administration in time range) naloxone (NARCAN) injection 0.2 mg (has no administration in time range) hydrALAZINE (APRESOLINE) injection 10 mg (has no administration in time range) ondansetron (ZOFRAN-ODT) disintegrating tablet 4 mg (has no administration in time range) Or ondansetron (ZOFRAN) injection 4 mg (has no administration in time range) melatonin tablet 3 mg (has no administration in time range) acetaminophen (TYLENOL) tablet 1,000 mg (has no administration in time range) HYDROcodone-acetaminophen (NORCO) 7.5-325 mg per tablet 1 tablet (has no administration in time range) aspirin EC tablet 325 mg (has no administration in time range) atorvastatin (LIPITOR) tablet 40 mg (has no administration in time range) metoprolol succinate (TOPROL-XL) 24 hr tablet 50 mg (has no administration in time range) QUEtiapine (SEROquel) tablet 200 mg (has no administration in time range) spironolactone (ALDACTONE) tablet 25 mg (has no administration in time range) tiZANidine (ZANAFLEX) tablet 4 mg (has no administration in time range) valsartan (DIOVAN) tablet 40 mg (has no administration in time range) glucose chew tab 16 g (has no administration in time range) dextrose 50% (D50W) injection 25 g (has no administration in time range) glucagon injection 1 mg (has no administration in time range) insulin lispro (HUMALOG, ADMELOG) injection 0-18 Units ( subcutaneous Not Given 04/24/25 182) sodium chloride 0.9% (NS) bolus (0 mLs intravenous Stopped 04/24/25 1723) piperacillin-tazobactam (ZOSYN) 4.5 g in sodium chloride 0.9 % (NS) MBP 100 mL IVPB (0 g intravenous Stopped 04/24/25 1645) morphine injection 4 mg (4 mg intravenous Given 04/24/25 1613) ondansetron (ZOFRAN) injection 4 mg (4 mg intravenous Given 04/24/25 1613) cefTRIAXone (ROCEPHIN) 1 g in sodium chloride 0.9 % (NS) 50 mL SHANELLE IVPB (0 g intravenous Stopped 04/24/25 1746) metroNIDAZOLE (FLAGYL) IVPB 500 mg in sodium chloride 0.9 % 100 mL (premix) (500 mg intravenous IVPB Started 04/24/25 1747) Results for orders placed or performed during the hospital encounter of 04/24/25 CBC with automated diff Result Value Ref Range WBC 11.8 (H) 4.2 - 9.1 K/??L RBC 4.40 (L) 4.63 - 6.08 M/??L Hemoglobin 12.1 (L) 13.7 - 17.5 GM/DL Hematocrit 38.1 (L) 40.1 - 51.0 % MCV 87 79 - 92 fL MCH 27.5 25.7 - 32.2 pg MCHC 31.8 (L) 32.3 - 36.5 GM/DL RDW 14.6 (H) 11.6 - 14.4 % Platelets 597 (H) 140 - 375 K/CU MM MPV 8.1 (L) 9.4 - 12.4 fL % Neutros 70 (H) 34 - 68 % % Lymphs 17 (L) 22 - 53 % % Monos 10 5 - 12 % % Eos 2 1 - 7 % % Baso 1 0 - 1 % NRBC Absolute <0.01 0 - 0.012 K/ul # Neutros 8.30 (H) 1.78 - 5.38 K/??L # Lymphs 1.99 1.32 - 3.57 K/??L # Monos 1.16 (H) 0.30 - 0.82 K/??L # Eos 0.21 0.04 - 0.54 K/??L # Baso 0.10 (H) 0.01 - 0.08 K/??L Immature Granulocytes-Relative 0.40 0.01 - 0.43 % # IG 0.05 (H) 0.00 - 0.03 K/uL Comprehensive metabolic panel Result Value Ref Range Sodium 143 136 - 145 meq/L Potassium 4.5 3.4 - 5.1 meq/L Chloride 108 98 - 112 meq/L CO2 24 22 - 29 meq/L Calcium 9.3 8.4 - 10.2 mg/dL Glucose 99 82 - 115 mg/dL BUN 10.0 8.4 - 25.7 mg/dL Creatinine 1.10 0.72 - 1.25 mg/dL BUN/Creatinine 9 8 - 20 eGFR (mL/min/1.73m2) 74 >=60 mL/min/1.73m2 Albumin 3.3 (L) 3.5 - 5.0 g/dL Alkaline Phosphatase 92 40 - 150 U/L ALT 10 <=45 U/L AST 20 11 - 34 U/L Total Bilirubin 0.2 0.2 - 1.2 mg/dL Protein, Total 8.2 6.4 - 8.3 g/dL Globulin 4.9 (H) 2.5 - 4.1 g/dL Anion Gap 16 (H) 4 - 12 A/G Ratio 0.7 0.7 - 1.9 Osmolality Calc 284.1 mOsm/kg Lactic Acid with reflex (SJ) Result Value Ref Range Lactic Acid Level (mmol/L) 2.4 (HH) 0.5 - 2.2 mmol/L ECG 12 lead Result Value Ref Range VENTRICULAR RATE EKG/MIN 104 BPM ATRIAL RATE (MCT) 104 BPM OK Interval 129 ms QRS-INTERVAL (MSEC) 79 ms QT Interval 321 ms QTC Interval 422 ms P [place] 72 degrees R AXIS (MCT) 78 degrees T Wave [place] 59 degrees [place] Diagnosis Sinus tachycardia Nonspecific T wave abnormality Abnormal ECG No previous ECGs available XR chest AP portable Final Result No acute cardiopulmonary process. Images reviewed, interpreted, and dictated by Dr. Davi Perez. Transcribed by Mary Beth Ram ED Course as of 04/24/251928Apr 24, 2025 160 ECG reviewed and interpreted by me in the emergency department shows sinus tachycardic rate and rhythm without any ST segment deviations that be concerning for ST elevation myocardial infarctionat this time. Normal axis [NF] 1617 WBC(!): 11.8 [TA] 1617 Hemoglobin(!): 12.1 [TA] 1617 Hematocrit(!): 38.1 [TA] 1650 Sodium: 143 [TA] 1650 Potassium: 4.5 [TA] 1650 BUN: 10.0 [TA] 1650 Creatinine: 1.10 [TA] 1650 EGFR: 74 [TA] 1650 Lactic Acid Level (mmol/L)(!!): 2.4 [TA] 1715 I spoke with the patient's operating surgeon Dr. 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 Dr. Lockhart states that he saw the patient today in clinic with appropriate examination, but states that he spoke with Dr. Amato with infectious disease who wanted the patient admitted for further IV antibiotics for persistent infection. [NF] ED Course User Index [NF] Claude Arriaga MD [TA] Hudson Rich APRN Critical Care Performed by: Claude Arriaga MD Authorized by: Claude rAriaga MD Critical care provider statement: Critical care time (minutes): 35 Critical care time was exclusive of: Separately billable procedures and treating other patients Critical care was necessary to treat or prevent imminent or life-threatening deterioration of the following conditions: Sepsis Critical care was time spent personally by me on the following activities: Blood draw for specimens, development of treatment plan with patient or surrogate, discussions with consultants, examinationof patient, obtaining history from patient or surrogate, ordering and performing treatments and interventions and ordering and review of laboratory studies I assumed direction of critical care for this patient from another provider in my specialty: no Medical Decision Making Initial Impression: Patient is a 65-year-old male here today with abdominal pain, and concern for sepsis. Differential diagnoses including, but not limited to: Sepsis, intra-abdominal abscess, other intra-abdominal infection, among others Patient had his care initiated by the Provider in Triage which included chest x- ray, labs with lactic acid and blood cultures, sepsis bolus, Zosyn, and other medications to treat symptoms. Initial work-up shows a WBC of 11.8, lactate of 2.4, and other labs overall nonactionable. He was then reevaluated by the attending physician, and after receiving a phone call by Dr. Lockhart it was decided that the patient would benefit from admission to receive IV antibiotics. This was also at the recommendation of the infectious disease provider, Dr. Amato. Patient is in agreement with the plan of care. The on-call hospitalist, Dr. Trujillo, was notified about the patient and accepts for admission. Orders placed for admission and to start the recommended antibiotics of daptomycin, metronidazole, and ceftriaxone. Disposition: Patient is to the hospital for further care management. Amount and/or Complexity of Data Reviewed Labs: Decision-making details documented in ED Course. Risk Prescription drug management. Decision regarding hospitalization. Onel Arriaga MD: I saw the patient [id number], independently of the LC, and performed my own physical examination. I performed a substantive portion of the MDM. Assessment & Plan Clinical Impression Diagnosis Comment Added By Time Added Sepsis, due to unspecified organism, unspecified whether acute organ dysfunction present (HCC) Hudson Rich APRN 04/24/2025 5:36 PM Disposition Admit [3] - 04/24/2025 5:31 PM New Prescriptions No medications on file Electronically Signed By Hudson Rich APRN 04/24/25 [id number] Claude Arriaga MD 04/24/25 [id number] documented in this encounter Miscellaneous Notes * Plan of Care - Merly Troncoso - 04/30/2025 3:18 PM EDT Problem: Pain Goal: Patient's pain/discomfort [...] and interventions as needed. Outcome: Progressing Problem: Knowledge Deficit Goal: Patient/family/caregiver demonstrates understanding of disease process, treatment plan, medications, and discharge instructions Description: Complete learning assessment and assess knowledge base. Outcome: Progressing Problem: Insufficient Fluid Volume Goal: Fluid and electrolyte balance are achieved/maintained Description: Assess and monitor vital signs (orthostatic vitals if applicable), fluid intake and output, urine color, labs, skin turgor, mucous membranes, mental status, and gastrointestinal system for nausea, vomiting and diarrhea. Monitor for signs and symptoms of hypovolemia (tachycardia, rapid breathing, decreased urine output, postural hypotension, confusion, syncope). Collaborate with interdisciplinary team and initiate plan and interventions as ordered. Outcome: Progressing Problem: Infection Goal: Signs and symptoms of infections are decreased or avoided Description: Assess and monitor patient for signs and symptoms of infection such as redness, warmth, discharge, and increased body temperature. Monitor and report abnormal lab values (ex-CBC and diff, serum protein, serum albumin, and cultures). Wash hands properly before and after each patient care activity. Utilize standard precautions and use personal protective equipment (PPE) as indicated. Ensure aseptic care of all intravenous lines and invasive tubes/drains. Obtain immunization and exposure to communicable diseases history. Collaborate with interdisciplinary team and initiate plan and interventions as ordered. Outcome: Progressing Problem: Insufficient Nutritional Intake Goal: Patient's nutritional intake is adequate Description: Assess and monitor food intake and supplements, patient food preferences, nausea, vomiting, labs, oral cavity (gums, teeth, tongue, mucosa), proper denture fit, and cultural beliefs. Monitor for signs of hypoglycemia and hyperglycemia. Collaborate with interdisciplinary team and initiate plan and interventions as ordered. Outcome: Progressing Goal: Mobility/activity is maintained at optimum level for patient Description: Assess and monitor patient barriers to mobility and need for assistive/adaptive devices. Assess patient's emotional response to limitations. Collaborate with interdisciplinary team and initiate plans and interventions as ordered. Outcome: Progressing * Plan of Care - Sukhdeep Martines LPN - 04/29/2025 8:12 AM EDT Problem: Pain Goal: Patient's pain/discomfort [...] and interventions as needed. Outcome: Progressing Problem: Knowledge Deficit Goal: Patient/family/caregiver demonstrates understanding of disease process, treatment plan, medications, and discharge instructions Description: Complete learning assessment and assess knowledge base. Outcome: Progressing Problem: Insufficient Fluid Volume Goal: Fluid and electrolyte balance are achieved/maintained Description: Assess and monitor vital signs (orthostatic vitals if applicable), fluid intake and output, urine color, labs, skin turgor, mucous membranes, mental status, and gastrointestinal system for nausea, vomiting and diarrhea. Monitor for signs and symptoms of hypovolemia (tachycardia, rapid breathing, decreased urine output, postural hypotension, confusion, syncope). Collaborate with interdisciplinary team and initiate plan and interventions as ordered. Outcome: Progressing Problem: Infection Goal: Signs and symptoms of infections are decreased or avoided Description: Assess and monitor patient for signs and symptoms of infection such as redness, warmth, discharge, and increased body temperature. Monitor and report abnormal lab values (ex-CBC and diff, serum protein, serum albumin, and cultures). Wash hands properly before and after each patient care activity. Utilize standard precautions and use personal protective equipment (PPE) as indicated. Ensure aseptic care of all intravenous lines and invasive tubes/drains. Obtain immunization and exposure to communicable diseases history. Collaborate with interdisciplinary team and initiate plan and interventions as ordered. Outcome: Progressing Problem: Insufficient Nutritional Intake Goal: Patient's nutritional intake is adequate Description: Assess and monitor food intake and supplements, patient food preferences, nausea, vomiting, labs, oral cavity (gums, teeth, tongue, mucosa), proper denture fit, and cultural beliefs. Monitor for signs of hypoglycemia and hyperglycemia. Collaborate with interdisciplinary team and initiate plan and interventions as ordered. Outcome: Progressing Goal: Mobility/activity is maintained at optimum level for patient Description: Assess and monitor patient barriers to mobility and need for assistive/adaptive devices. Assess patient's emotional response to limitations. Collaborate with interdisciplinary team and initiate plans and interventions as ordered. Outcome: Progressing * Plan of Care - Sukhdeep Martines LPN - 04/28/2025 8:36 AM EDT Problem: Pain Goal: Patient's pain/discomfort [...] and interventions as needed. Outcome: Progressing Problem: Knowledge Deficit Goal: Patient/family/caregiver demonstrates understanding of disease process, treatment plan, medications, and discharge instructions Description: Complete learning assessment and assess knowledge base. Outcome: Progressing Problem: Insufficient Fluid Volume Goal: Fluid and electrolyte balance are achieved/maintained Description: Assess and monitor vital signs (orthostatic vitals if applicable), fluid intake and output, urine color, labs, skin turgor, mucous membranes, mental status, and gastrointestinal system for nausea, vomiting and diarrhea. Monitor for signs and symptoms of hypovolemia (tachycardia, rapid breathing, decreased urine output, postural hypotension, confusion, syncope). Collaborate with interdisciplinary team and initiate plan and interventions as ordered. Outcome: Progressing Problem: Infection Goal: Signs and symptoms of infections are decreased or avoided Description: Assess and monitor patient for signs and symptoms of infection such as redness, warmth, discharge, and increased body temperature. Monitor and report abnormal lab values (ex-CBC and diff, serum protein, serum albumin, and cultures). Wash hands properly before and after each patient care activity. Utilize standard precautions and use personal protective equipment (PPE) as indicated. Ensure aseptic care of all intravenous lines and invasive tubes/drains. Obtain immunization and exposure to communicable diseases history. Collaborate with interdisciplinary team and initiate plan and interventions as ordered. Outcome: Progressing Problem: Insufficient Nutritional Intake Goal: Patient's nutritional intake is adequate Description: Assess and monitor food intake and supplements, patient food preferences, nausea, vomiting, labs, oral cavity (gums, teeth, tongue, mucosa), proper denture fit, and cultural beliefs. Monitor for signs of hypoglycemia and hyperglycemia. Collaborate with interdisciplinary team and initiate plan and interventions as ordered. Outcome: Progressing Goal: Mobility/activity is maintained at optimum level for patient Description: Assess and monitor patient barriers to mobility and need for assistive/adaptive devices. Assess patient's emotional response to limitations. Collaborate with interdisciplinary team and initiate plans and interventions as ordered. Outcome: Progressing * Plan of Care - Pauline Stearns RN - 04/27/2025 12:18 PM EDT Problem: Pain Goal: Patient's pain/discomfort [...] and interventions as needed. Outcome: Progressing Problem: Knowledge Deficit Goal: Patient/family/caregiver demonstrates understanding of disease process, treatment plan, medications, and discharge instructions Description: Complete learning assessment and assess knowledge base. Outcome: Progressing Problem: Insufficient Fluid Volume Goal: Fluid and electrolyte balance are achieved/maintained Description: Assess and monitor vital signs (orthostatic vitals if applicable), fluid intake and output, urine color, labs, skin turgor, mucous membranes, mental status, and gastrointestinal system for nausea, vomiting and diarrhea. Monitor for signs and symptoms of hypovolemia (tachycardia, rapid breathing, decreased urine output, postural hypotension, confusion, syncope). Collaborate with interdisciplinary team and initiate plan and interventions as ordered. Outcome: Progressing Problem: Infection Goal: Signs and symptoms of infections are decreased or avoided Description: Assess and monitor patient for signs and symptoms of infection such as redness, warmth, discharge, and increased body temperature. Monitor and report abnormal lab values (ex-CBC and diff, serum protein, serum albumin, and cultures). Wash hands properly before and after each patient care activity. Utilize standard precautions and use personal protective equipment (PPE) as indicated. Ensure aseptic care of all intravenous lines and invasive tubes/drains. Obtain immunization and exposure to communicable diseases history. Collaborate with interdisciplinary team and initiate plan and interventions as ordered. Outcome: Progressing Problem: Insufficient Nutritional Intake Goal: Patient's nutritional intake is adequate Description: Assess and monitor food intake and supplements, patient food preferences, nausea, vomiting, labs, oral cavity (gums, teeth, tongue, mucosa), proper denture fit, and cultural beliefs. Monitor for signs of hypoglycemia and hyperglycemia. Collaborate with interdisciplinary team and initiate plan and interventions as ordered. Outcome: Progressing Goal: Mobility/activity is maintained at optimum level for patient Description: Assess and monitor patient barriers to mobility and need for assistive/adaptive devices. Assess patient's emotional response to limitations. Collaborate with interdisciplinary team and initiate plans and interventions as ordered. Outcome: Progressing * Plan of Care - Pauline Stearns RN - 04/26/2025 1:29 PM EDT Problem: Pain Goal: Patient's pain/discomfort [...] and interventions as needed. Outcome: Progressing Problem: Knowledge Deficit Goal: Patient/family/caregiver demonstrates understanding of disease process, treatment plan, medications, and discharge instructions Description: Complete learning assessment and assess knowledge base. Outcome: Progressing Problem: Insufficient Fluid Volume Goal: Fluid and electrolyte balance are achieved/maintained Description: Assess and monitor vital signs (orthostatic vitals if applicable), fluid intake and output, urine color, labs, skin turgor, mucous membranes, mental status, and gastrointestinal system for nausea, vomiting and diarrhea. Monitor for signs and symptoms of hypovolemia (tachycardia, rapid breathing, decreased urine output, postural hypotension, confusion, syncope). Collaborate with interdisciplinary team and initiate plan and interventions as ordered. Outcome: Progressing Problem: Infection Goal: Signs and symptoms of infections are decreased or avoided Description: Assess and monitor patient for signs and symptoms of infection such as redness, warmth, discharge, and increased body temperature. Monitor and report abnormal lab values (ex-CBC and diff, serum protein, serum albumin, and cultures). Wash hands properly before and after each patient care activity. Utilize standard precautions and use personal protective equipment (PPE) as indicated. Ensure aseptic care of all intravenous lines and invasive tubes/drains. Obtain immunization and exposure to communicable diseases history. Collaborate with interdisciplinary team and initiate plan and interventions as ordered. Outcome: Progressing Problem: Insufficient Nutritional Intake Goal: Patient's nutritional intake is adequate Description: Assess and monitor food intake and supplements, patient food preferences, nausea, vomiting, labs, oral cavity (gums, teeth, tongue, mucosa), proper denture fit, and cultural beliefs. Monitor for signs of hypoglycemia and hyperglycemia. Collaborate with interdisciplinary team and initiate plan and interventions as ordered. Outcome: Progressing Goal: Mobility/activity is maintained at optimum level for patient Description: Assess and monitor patient barriers to mobility and need for assistive/adaptive devices. Assess patient's emotional response to limitations. Collaborate with interdisciplinary team and initiate plans and interventions as ordered. Outcome: Progressing * Plan of Care - Pauline Stearns RN - 04/25/2025 2:37 PM EDT Problem: Pain Goal: Patient's pain/discomfort [...] plans and interventions as needed. Outcome: Progressing * Plan of Care - Darin Carlos RN - 04/24/2025 10:40 PM EDT Problem: Potential for Infection Goal: Remains infection [...] and initiate plan and interventions as ordered. Intervention: Assess immunization status Recent Flowsheet Documentation Taken 04/24/20252226 by Darin Carlos RN Have you had an influenza vaccine this season?: No Taken 04/24/20252099 by Darin Carlos RN Have you ever had a pneumonia vaccination(PCV13 or PPSV23)?: No / Unknown Have you had an influenza vaccine this season?: No documented in this encounter Plan of Treatment Not on file documented as of this encounter Procedures Procedure Name Priority Date/Time Associated Diagnosis Comments NOVA GLUCOSE POC Routine 05/01/2025 3:23 PM EDT NOVA GLUCOSE POC Routine 05/01/2025 10:1 6 AM EDT NOVA GLUCOSE POC Routine 04/30/2025 7:47 PM EDT NOVA GLUCOSE POC Routine 04/30/2025 3:43 PM EDT NOVA GLUCOSE POC Routine 04/30/2025 10:2 6 AM EDT NOVA GLUCOSE POC Routine 04/30/2025 5:43 AM EDT NOVA GLUCOSE POC Routine 04/29/2025 8:52 PM EDT NOVA GLUCOSE POC Routine 04/29/2025 3:57 PM EDT NOVA GLUCOSE POC Routine 04/29/2025 10:3 1 AM EDT NOVA GLUCOSE POC Routine 04/29/2025 5:30 AM EDT NOVA GLUCOSE POC Routine 04/28/2025 8:18 PM EDT NOVA GLUCOSE POC Routine 04/28/2025 2:56 PM EDT NOVA GLUCOSE POC Routine 04/28/2025 10:1 8 AM EDT LACTIC ACID (SJ - BKR) STAT 6:16 AM EDT NOVA GLUCOSE POC Routine 04/28/2025 5:37 AM EDT NOVA GLUCOSE POC Routine 04/27/2025 8:37 PM EDT NOVA GLUCOSE POC Routine 04/27/2025 3:29 PM EDT NOVA GLUCOSE POC Routine 04/27/2025 10:2 3 AM EDT NOVA GLUCOSE POC Routine 04/27/2025 6:28 AM EDT NOVA GLUCOSE POC Routine 04/26/2025 8:31 PM EDT NOVA GLUCOSE POC Routine 04/26/2025 3:42 PM EDT NOVA GLUCOSE POC Routine 04/26/2025 10:1 7 AM EDT NOVA GLUCOSE POC Routine 04/26/2025 4:53 AM EDT CBC W/ AUTO DIFF Routine 04/26/2025 3:38 AM EDT BASIC METABOLIC PANEL Routine 04/26/2025 3:38 AM EDT NOVA GLUCOSE POC Routine 04/25/2025 8:06 PM EDT NOVA GLUCOSE POC Routine 04/25/2025 3:15 PM EDT NOVA GLUCOSE POC Routine 04/25/2025 10:3 9 AM EDT CBC HEMOGRAM (SJ-BKR) Routine 04/25/2025 7:16 AM EDT NOVA GLUCOSE POC Routine 04/25/2025 5:01 AM EDT C-REACTIVE PROTEIN Routine 04/25/2025 4: 21 AM EDT COMPREHENSIVE METABOLIC PANEL Routine 04/25/2025 4:21 AM EDT LACTIC ACID (SJ - BKR) Routine 4:20 AM EDT NOVA GLUCOSE POC Routine 04/24/2025 8:26 PM EDT XR CHEST AP PORTABLE STAT 04/24/2025 4:19 PM EDT CBC W/ AUTO DIFF STAT 04/24/2025 4:07 PM EDT LACTIC ACID WITH REFLEX STAT 04/24/2025 4:07 PM EDT BLOOD CULTURE STAT 04/24/2025 4:07 PM EDT BLOOD CULTURE STAT 04/24/2025 4:07 PM EDT COMPREHENSIVE METABOLIC PANEL STAT 04/24/2025 4:07 PM EDT FS_MODEL_IP_ECG 12-LEAD Routine 04/24/2025 3:54 PM EDT FS_[facility]_MODEL CRITICAL CARE Routine 04/24/2025 3:42 PM EDT EKG-SCANNED 04/24/2025 documented in this encounter Results * (ABNORMAL) Glucose, Nova Meter (05/01/2025 3:23 PM EDT) [facility] Signature POC-GLUCOSE 133(H) 70 - 110 mg/dL 05/01/2025 3:25 PM EDT [facility] Comment: In the event of poor peripheral blood flow, venous or arterial blood should be used due to the potential of erroneous results. Notified Nurse RBV On Site Manager [id number] 05/01/2025 3:25 PM EDT [facility] Blood WHOLE BLOOD / Unknown 05/01/2025 3:23 PM EDT 05/01/2025 3:25 PM EDT Narrative [facility] - 05/01/2025 3:25 PM EDT On Site Manager ID is - [id number] us Manjit Naranjo MD POINT OF CARE TEST ORDERABLES Fi nal Result [facility] [address] [phone] * (ABNORMAL) Glucose, Nova Meter (05/01/2025 10:16 AM EDT) POC-GLUCOSE 153(H) 70 - 110 mg/dL 05/01/2025 10:18 AM EDT [facility] Comment: In the event of poor peripheral blood flow, venous or arterial blood should be used due to the potential of erroneous results. Notified Nurse RBV On Site Manager [id number] 05/01/2025 10:18 AM EDT [facility] Blood WHOLE BLOOD / Unknown 05/01/2025 10:16 AM EDT 05/01/2025 10:17 AM EDT Narrative [facility] - 05/01/2025 10:18 AM EDT On Site Manager ID is - [id number] us Manjit Naranjo MD POINT OF CARE TEST ORDERABLES Fi nal Result Performing Organization Address [facility] Co pa Phone Number [facility] [address] [phone] * (ABNORMAL) Glucose, Nova Meter (04/30/2025 7:47 PM EDT) POC-GLUCOSE 130(H) 70 - 110 mg/dL 04/30/2025 7:48 PM EDT [facility] Comment: In the event of poor peripheral blood flow, venous or arterial blood should be used due to the potential of erroneous results. Notified Nurse RBV On Site Manager [id number] 04/30/2025 7:48 PM EDT [facility] Blood WHOLE BLOOD / Unknown 04/30/2025 7:47 PM EDT 04/30/2025 7:48 PM EDT Narrative [facility] - 04/30/2025 7:48 PM EDT On Site Manager ID is - [id number] us Zuhair Collier MD POINT OF CARE TEST ORDERABLES Fi nal Result Performing Organization Address [facility] Co de Phone Number [facility] [address] [phone] * (ABNORMAL) Glucose, Nova Meter (04/30/2025 3:43 PM EDT) POC-GLUCOSE 144(H) 70 - 110 mg/dL 04/30/2025 3:44 PM EDT [facility] Comment: In the event of poor peripheral blood flow, venous or arterial blood should be used due to the potential of erroneous results. Notified Nurse RBV On Site Manager [id number] 04/30/2025 3:44 PM EDT [facility] Blood WHOLE BLOOD / Unknown 04/30/2025 3:43 PM EDT 04/30/2025 3:44 PM EDT Narrative [facility] - 04/30/2025 3:44 PM EDT On Site Manager ID is - [id number] us Zuhair Collier MD POINT OF CARE TEST ORDERABLES Fi nal Result Performing Organization Address [facility] de Phone Number [facility] [address] [phone] * (ABNORMAL) Glucose, Nova Meter (04/30/2025 10:26 AM EDT) POC-GLUCOSE 118(H) 70 - 110 mg/dL 04/30/2025 10:27 AM EDT [facility] Comment: In the event of poor peripheral blood flow, venous or arterial blood should be used due to the potential of erroneous results. Notified Nurse RBV On Site Manager [id number] 04/30/2025 10:27 AM EDT [facility] Blood WHOLE BLOOD / Unknown 04/30/2025 10:26 AM EDT 04/30/2025 10:27 AM EDT Narrative [facility] - 04/30/2025 10:27 AM EDT On Site Manager ID is - [id number] us Zuhair Collier MD POINT OF CARE TEST ORDERABLES Fi nal Result Performing Organization Address [facility] Co de Phone Number [facility] [address] [phone] * Glucose, Nova Meter (04/30/2025 5:43 AM EDT) POC-GLUCOSE 91 70 - 110 mg/dL 04/30/2025 5:45 AM EDT [facility] Comment: In the event of poor peripheral blood flow, venous or arterial blood should be used due to the potential of erroneous results. Notified Nurse RBV On Site Manager [id number] 04/30/2025 5:45 AM EDT [facility] Blood WHOLE BLOOD / Unknown 04/30/2025 5:43 AM EDT 04/30/2025 5:45 AM EDT Narrative [facility] - 04/30/2025 5:45 AM EDT On Site Manager ID is - [id number] us Zuhair Collier MD POINT OF CARE TEST ORDERABLES Fi nal Result Performing Organization Address [facility] Number [facility] [address] [phone] * (ABNORMAL) Glucose, Nova Meter (04/29/2025 8:52 PM EDT) POC-GLUCOSE 118(H) 70 - 110 mg/dL 04/29/2025 8:53 PM EDT [facility] Comment: In the event of poor peripheral blood flow, venous or arterial blood should be used due to the potential of erroneous results. Notified Nurse RBV On Site Manager [id number] 04/29/2025 8:53 PM EDT [facility] Blood WHOLE BLOOD / Unknown 04/29/2025 8:52 PM EDT 04/29/2025 8:53 PM EDT Narrative [facility] - 04/29/2025 8:53 PM EDT On Site Manager ID is - [id number] us Zuhair Collier MD POINT OF CARE TEST ORDERABLES Fi nal Result Performing Organization Address [facility] Co de Phone Number [facility] [address] [phone] * Glucose, Nova Meter (04/29/2025 3:57 PM EDT) POC-GLUCOSE 97 70 - 110 mg/dL 04/29/2025 3:59 PM EDT [facility] Comment: In the event of poor peripheral blood flow, venous or arterial blood should be used due to the potential of erroneous results. Notified Nurse RBV On Site Manager [id number] 04/29/2025 3:59 PM EDT [facility] Blood WHOLE BLOOD / Unknown 04/29/2025 3:57 PM EDT 04/29/2025 3:59 PM EDT Narrative [facility] - 04/29/2025 3:59 PM EDT On Site Manager ID is - [id number] Zuhair Collier MD POINT OF CARE TEST ORDERABLES Fi nal Result Performing Organization Address [facility] [address] [phone] * (ABNORMAL) Glucose, Nova Meter (04/29/2025 10:31 AM EDT) [facility] POC-GLUCOSE 127(H) 70 - 110 mg/dL 04/29/2025 10:33 AM EDT [facility] Comment: In the event of poor peripheral blood flow, venous or arterial blood should be used due to the potential of erroneous results. Notified Nurse RBV On Site Manager [id number] 04/29/2025 10:33 AM EDT [facility] Blood WHOLE BLOOD / Unknown 04/29/2025 10:31 AM EDT 04/29/2025 10:32 AM EDT Narrative [facility] - 04/29/2025 10:33 AM EDT On Site Manager ID is - [id number] us Zuhair Collier MD POINT OF CARE TEST ORDERABLES Fi nal Result Performing Organization Address [facility] Number [facility] [address] [phone] * Glucose, Nova Meter (04/29/2025 5:30 AM EDT) Pathologist [facility] POC-GLUCOSE 87 70 - 110 mg/dL 04/29/2025 5:31 AM EDT [facility] Comment: In the event of poor peripheral blood flow, venous or arterial blood should be used due to the potential of erroneous results. Notified Nurse RBV On Site Manager [id number] 04/29/2025 5:31 AM EDT [facility] Blood WHOLE BLOOD / Unknown 04/29/2025 5:30 AM EDT 04/29/2025 5:31 AM EDT Narrative [facility] - 04/29/2025 5:31 AM EDT On Site Manager ID is - [id number] us Zuhair Collier MD POINT OF CARE TEST ORDERABLES Fi nal Result Performing Organization Address [facility] de Phone Number [facility] [address] [phone] * Glucose, Nova Meter (04/28/2025 8:18 PM EDT) POC-GLUCOSE 106 70 - 110 mg/dL 04/28/2025 8:20 PM EDT [facility] Comment: In the event of poor peripheral blood flow, venous or arterial blood should be used due to the potential of erroneous results. Notified Nurse RBV On Site Manager [id number] 04/28/2025 8:20 PM EDT [facility] Blood WHOLE BLOOD / Unknown 04/28/2025 8:18 PM EDT 04/28/2025 8:20 PM EDT Narrative [facility] - 04/28/2025 8:20 PM EDT On Site Manager ID is - [id number] us Zuhair Collier MD POINT OF CARE TEST ORDERABLES Fi nal Result Performing Organization Address [facility] Co de Phone Number [facility] 1 [place] [address], [facility] [phone] * (ABNORMAL) Glucose, Nova Meter (04/28/2025 2:56 PM EDT) POC-GLUCOSE 114(H) 70 - 110 mg/dL 04/28/2025 2:57 PM EDT [facility] Comment: In the event of poor peripheral blood flow, venous or arterial blood should be used due to the potential of erroneous results. Protocols Followed On Site Manager [id number] 04/28/2025 2:57 PM EDT [facility] Blood WHOLE BLOOD / Unknown 04/28/2025 2:56 PM EDT 04/28/2025 2:57 PM EDT Narrative [facility] - 04/28/2025 2:57 PM EDT On Site Manager ID is - [id number] us Zuhair Collier MD POINT OF CARE TEST ORDERABLES Fi nal Result Performing Organization Address [facility] Co de Phone Number [facility] [address] [phone] * (ABNORMAL) Glucose, Nova Meter (04/28/2025 10:18 AM EDT) POC-GLUCOSE 123(H) 70 - 110 mg/dL 04/28/2025 10:19 AM EDT [facility] Comment: In the event of poor peripheral blood flow, venous or arterial blood should be used due to the potential of erroneous results. Protocols Followed On Site Manager [id number] 04/28/2025 10:19 AM EDT [facility] Blood WHOLE BLOOD / Unknown 04/28/2025 10:18 AM EDT 04/28/2025 10:19 AM EDT Narrative [facility] - 04/28/2025 10:19 AM EDT On Site Manager ID is - [id number] us Zuhair Collier MD POINT OF CARE TEST ORDERABLES Fi nal Result Performing Organization Address [facility] Co de Phone Number [facility] [address] [phone] * Lactic acid (SJ) (04/28/2025 6:16 AM EDT) Lactic Acid Level (mmol/L) 1.0 0.5 - 2.2 mmol/L 04/28/2025 7:00 AM EDT [facility] Blood CENTRAL VENOUS CATHETER / Unknown Medicare Port / Unknown 04/28/2025 6:16 AM EDT 04/28/2025 6:30 AM EDT us Marixagarland Dilldhaval ESCAMILLA LAB BLOOD ORDERABLES Final Re sult [facility] 1 [place] [address], [facility] [phone] * Glucose, Nova Meter (04/28/2025 5:37 AM EDT) POC-GLUCOSE 87 70 - 110 mg/dL 04/28/2025 5:38 AM EDT [facility] Comment: In the event of poor peripheral blood flow, venous or arterial blood should be used due to the potential of erroneous results. Notified Nurse RBV On Site Manager [id number] 04/28/2025 5:38 AM EDT [facility] Blood WHOLE BLOOD / Unknown 04/28/2025 5:37 AM EDT 04/28/2025 5:38 AM EDT Narrative [facility] - 04/28/2025 5:38 AM EDT On Site Manager ID is - [id number] us Zuhair Collier MD POINT OF CARE TEST ORDERABLES Fi nal Result [facility] 1 [place] [address], [facility] [phone] * Glucose, Nova Meter (04/27/2025 8:37 PM EDT) POC-GLUCOSE 95 70 - 110 mg/dL 04/27/2025 8:39 PM EDT [facility] Comment: In the event of poor peripheral blood flow, venous or arterial blood should be used due to the potential of erroneous results. Notified Nurse RBV On Site Manager [id number] 04/27/2025 8:39 PM EDT [facility] Blood WHOLE BLOOD / Unknown 04/27/2025 8:37 PM EDT 04/27/2025 8:39 PM EDT Narrative [facility] - 04/27/2025 8:39 PM EDT On Site Manager ID is - [id number] Zuhair Collier MD POINT OF CARE TEST ORDERABLES Fi nal Result Performing Organization Address [facility] de Phone Number [facility] [address] [place] [address], [facility] [phone] * Glucose, Nova Meter (04/27/2025 3:29 PM EDT) POC-GLUCOSE 93 70 - 110 mg/dL 04/27/2025 3:30 PM EDT [facility] Comment: In the event of poor peripheral blood flow, venous or arterial blood should be used due to the potential of erroneous results. Notified Nurse RBV On Site Manager [id number] 04/27/2025 3:30 PM EDT [facility] Blood WHOLE BLOOD / Unknown 04/27/2025 3:29 PM EDT 04/27/2025 3:30 PM EDT Narrative [facility] - 04/27/2025 3:30 PM EDT On Site Manager ID is - [id number] us Zuhair Collier MD POINT OF CARE TEST ORDERABLES Fi nal Result Performing Organization Address [facility] de Phone Number [facility] [address] [place] [address], [facility] [phone] * Glucose, Nova Meter (04/27/2025 10:23 AM EDT) POC-GLUCOSE 106 70 - 110 mg/dL 04/27/2025 10:24 AM EDT [facility] Comment: In the event of poor peripheral blood flow, venous or arterial blood should be used due to the potential of erroneous results. Notified Nurse RBV On Site Manager [id number] 04/27/2025 10:24 AM EDT [facility] Blood WHOLE BLOOD / Unknown 04/27/2025 10:23 AM EDT 04/27/2025 10:[address] [facility] ([place], [place] - 04/27/2025 10:24 AM EDT On Site Manager ID is - [id number] us Zuhair Collier MD POINT OF CARE TEST ORDERABLES Fi nal Result [facility] 1 [place] [address], [facility] [phone] * (ABNORMAL) Glucose, Nova Meter (04/27/2025 6:28 AM EDT) POC-GLUCOSE 113(H) 70 - 110 mg/dL 04/27/2025 6:30 AM EDT [facility] Comment: In the event of poor peripheral blood flow, venous or arterial blood should be used due to the potential of erroneous results. Notified Nurse RBV On Site Manager [id number] 04/27/2025 6:30 AM EDT [facility] Blood WHOLE BLOOD / Unknown 04/27/2025 6:28 AM EDT 04/27/2025 6:[address] [facility] ([place], [place] - 04/27/2025 6:30 AM EDT On Site Manager ID is - [id number] Samantha Manzo MD POINT OF CARE TEST ORDERABLES Fi nal Result Performing Organization Address [facility] Co de Phone Number [facility] 1 [place] [address], [facility] [phone] * Glucose, Nova Meter (04/26/2025 8:31 PM EDT) POC-GLUCOSE 108 70 - 110 mg/dL 04/26/2025 8:32 PM EDT [facility] Comment: In the event of poor peripheral blood flow, venous or arterial blood should be used due to the potential of erroneous results. Notified Nurse RBV On Site Manager [id number] 04/26/2025 8:32 PM EDT [facility] Blood WHOLE BLOOD / Unknown 04/26/2025 8:31 PM EDT 04/26/2025 8:[address] [facility] ([place], [place] - 04/26/2025 8:32 PM EDT On Site Manager ID is - [id number] Samantha Manzo MD POINT OF CARE TEST ORDERABLES Fi nal Result Performing Organization Address [facility] Co de Phone Number [facility] [address] [phone] * Glucose, Nova Meter (04/26/2025 3:42 PM EDT) POC-GLUCOSE 82 70 - 110 mg/dL 04/26/2025 3:43 PM EDT [facility] Comment: In the event of poor peripheral blood flow, venous or arterial blood should be used due to the potential of erroneous results. Notified Nurse RBV On Site Manager [id number] 04/26/2025 3:43 PM EDT [facility] Blood WHOLE BLOOD / Unknown 04/26/2025 3:42 PM EDT 04/26/2025 3:[address] [facility] ([place] [place] - 04/26/2025 3:43 PM EDT On Site Manager ID is - [id number] Samantha Manzo MD POINT OF CARE TEST ORDERABLES Fi nal Result Performing Organization Address [facility] Co de Phone Number [facility] 1 [place] [address], [facility] [phone] * (ABNORMAL) Glucose, Nova Meter (04/26/2025 10:17 AM EDT) POC-GLUCOSE 123(H) 70 - 110 mg/dL 04/26/2025 10:18 AM EDT [facility] Comment: In the event of poor peripheral blood flow, venous or arterial blood should be used due to the potential of erroneous results. Notified Nurse RBV On Site Manager [id number] 04/26/2025 10:18 AM EDT [facility] Blood WHOLE BLOOD / Unknown 04/26/2025 10:17 AM EDT 04/26/2025 10:[address] [facility] ([place], [place] - 04/26/2025 10:18 AM EDT On Site Manager ID is - [id number] Samantha Manzo MD POINT OF CARE TEST ORDERABLES Fi nal Result Performing Organization Address [facility]/ZIP Co de Phone Number [facility] [address] [phone] * Glucose, Nova Meter (04/26/2025 4:53 AM EDT) Pathologist [facility] POC-GLUCOSE 94 70 - 110 mg/dL 04/26/2025 4:54 AM EDT [facility] Comment: In the event of poor peripheral blood flow, venous or arterial blood should be used due to the potential of erroneous results. Notified Nurse RBV On Site Manager [id number] 04/26/2025 4:54 AM EDT [facility] Blood WHOLE BLOOD / Unknown 04/26/2025 4:53 AM EDT 04/26/2025 4:54 AM EDT Narrative [facility] - 04/26/2025 4:54 AM EDT On Site Manager ID is - [id number] Samantha Manzo MD POINT OF CARE TEST ORDERABLES Fi nal Result Performing Organization Address [facility] Co de Phone Number [facility] [address] [phone] * (ABNORMAL) CBC with automated diff (04/26/2025 3:38 AM EDT) Pathologist [facility] WBC 8.6 4.2 - 9.1 K/ L 04/26/2025 4:26 AM EDT [facility] RBC 3.88(L) 4.63 - 6.08 M/ L 04/26/2025 4:26 AM EDT [facility] Hemoglobin 10.6(L) 13.7 - 17.5 GM/DL 04/26/2025 4:26 AM EDT [facility] Hematocrit 33.4(L) 40.1 - 51.0 % 04/26/2025 4:26 AM EDT [facility] MCV 86 79 - 92 fL 04/26/2025 4:26 AM EDT [facility] MCH 27.3 25.7 - 32.2 pg 04/26/2025 4:26 AM EDT [facility] MCHC 31.7(L) 32.3 - 36.5 GM/DL 04/26/2025 4:26 AM EDT [facility] RDW 14.6(H) 11.6 - 14.4 % 04/26/2025 4:26 AM EDT [facility] Platelets 425(H) 140 - 375 K/CU MM 04/26/2025 4:26 AM EDT [facility] MPV 8.2(L) 9.4 - 12.4 fL 04/26/2025 4:26 AM EDT [facility] % Neutros 66 34 - 68 % 04/26/2025 4:26 AM EDT [facility] % Lymphs 22 22 - 53 % 04/26/2025 4:26 AM EDT [facility] % Monos 9 5 - 12 % 04/26/2025 4:26 AM EDT [facility] % Eos 2 1 - 7 % 04/26/2025 4:26 AM EDT [facility] % Baso 1 0 - 1 % 04/26/2025 4:26 AM EDT [facility] NRBC Absolute <0.01 0 - 0.012 K/ul 04/26/2025 4:26 AM EDT [facility] # Neutros 5.62(H) 1.78 - 5.38 K/ L 04/26/2025 4:26 AM EDT [facility] # Lymphs 1.90 1.32 - 3.57 K/ L 04/26/2025 4:26 AM EDT [facility] # Monos 0.73 0.30 - 0.82 K/ L 04/26/2025 4:26 AM EDT [facility] # Eos 0.21 0.04 - 0.54 K/ L 04/26/2025 4:26 AM EDT [facility] # Baso 0.09(H) 0.01 - 0.08 K/ L 04/26/2025 4:26 AM EDT [facility] Immature Granulocytes-Re lative 0.50(H) 0.01 - 0.43 % 04/26/2025 4:26 AM EDT [facility] # IG 0.04(H) 0.00 - 0.03 K/uL 04/26/2025 4:26 AM EDT [facility] Blood Venipuncture / Unknown 04/26/2025 3:38 AM EDT 04/26/2025 4:18 AM EDT Narrative [facility] - 04/26/2025 4:26 AM EDT When CBC w/ Auto Diff [...] Flag noted Atypical Lymph flag noted us Samantha Manzo MD LAB BLOOD ORDERABLES Final Resul t [facility] [address] [place] [address] * (ABNORMAL) Basic Metabolic Panel (04/26/2025 3:38 AM EDT) Sodium 139 136 - 145 meq/L 04/26/2025 4:49 AM EDT [facility] Potassium 4.2 3.4 - 5.1 meq/L 04/26/2025 4:49 AM EDT [facility] CO2 20(L) 22 - 29 meq/L 04/26/2025 4:49 AM EDT [facility] Chloride 109 98 - 112 meq/L 04/26/2025 4:49 AM EDT [facility] Glucose 102 82 - 115 mg/dL 04/26/2025 4:49 AM EDT [facility] BUN 10.7 8.4 - 25.7 mg/dL 04/26/2025 4:49 AM EDT [facility] Creatinine 0.88 0.72 - 1.25 mg/dL 04/26/2025 4:49 AM EDT [facility] BUN/Creatinine 12 8 - 20 04/26/2025 4:49 AM EDT [facility] Calcium 8.4 8.4 - 10.2 mg/dL 04/26/2025 4:49 AM EDT [facility] Anion Gap 14(H) 4 - 12 04/26/2025 4:49 AM EDT [facility] eGFR (mL/min/1.73m2) 95 >=60 mL/min/1.7 3m2 04/26/2025 4:49 AM EDT [facility] Osmolality Calc 277.0 mOsm/kg 4:49 AM EDT [facility] Blood Venipuncture / Unknown 04/26/2025 3:38 AM EDT 04/26/2025 4:20 AM EDT Narrative [facility] - 04/26/2025 4:49 AM EDT Specimen slightly hemolyzed us Samantha Manzo MD LAB BLOOD ORDERABLES Final Resul t Performing Organization Address [facility] Co pa Phone Number [facility] [address] [phone] * Glucose, Nova Meter (04/25/2025 8:06 PM EDT) POC-GLUCOSE 95 70 - 110 mg/dL 04/25/2025 8:07 PM EDT [facility] Comment: In the event of poor peripheral blood flow, venous or arterial blood should be used due to the potential of erroneous results. Notified Nurse RBV On Site Manager [phone] 04/25/2025 8:07 PM EDT [facility] Blood WHOLE BLOOD / Unknown 04/25/2025 8:06 PM EDT 04/25/2025 8:07 PM EDT Narrative [facility] - 04/25/2025 8:07 PM EDT On Site Manager ID is - [id number] us Samantha Manzo MD POINT OF CARE TEST ORDERABLES Fi nal Result Performing Organization Address City/[facility]/ZIP Co de Phone Number [facility] [address] [phone] * (ABNORMAL) Glucose, Nova Meter (04/25/2025 3:15 PM EDT) POC-GLUCOSE 116(H) 70 - 110 mg/dL 04/25/2025 3:16 PM EDT [facility] Comment: In the event of poor peripheral blood flow, venous or arterial blood should be used due to the potential of erroneous results. Notified Nurse RBV On Site Manager [id number] 04/25/2025 3:16 PM EDT [facility] Blood WHOLE BLOOD / Unknown 04/25/2025 3:15 PM EDT 04/25/2025 3:16 PM EDT Narrative [facility] - 04/25/2025 3:16 PM EDT On Site Manager ID is - [id number] Samantha Manzo MD POINT OF CARE TEST ORDERABLES Fi nal Result Performing Organization Address [facility], formerly [facility] Phone Number [facility] [address] [phone] * (ABNORMAL) Glucose, Nova Meter (04/25/2025 10:39 AM EDT) POC-GLUCOSE 115(H) 70 - 110 mg/dL 04/25/2025 10:40 AM EDT [facility] Comment: In the event of poor peripheral blood flow, venous or arterial blood should be used due to the potential of erroneous results. Notified Nurse RBV On Site Manager [phone] 04/25/2025 10:40 AM EDT [facility] Blood WHOLE BLOOD / Unknown 04/25/2025 10:39 AM EDT 04/25/2025 10:40 AM EDT Narrative [facility] - 04/25/2025 10:40 AM EDT On Site Manager ID is - [id number] us Samantha Manzo MD POINT OF CARE TEST ORDERABLES Fi nal Result Performing Organization Address [facility] Co de Phone Number [facility] [address] [phone] * (ABNORMAL) CBC - Hemogram (SJ-BKR) (04/25/2025 7:16 AM EDT) Pathologist [facility] WBC 9.1 4.2 - 9.1 K/ L 04/25/2025 8:31 AM EDT [facility] RBC 3.57(L) 4.63 - 6.08 M/ L 04/25/2025 8:31 AM EDT [facility] Hemoglobin 10.0(L) 13.7 - 17.5 GM/DL 04/25/2025 8:31 AM EDT [facility] Hematocrit 31.6(L) 40.1 - 51.0 % 04/25/2025 8:31 AM EDT [facility] MCV 89 79 - 92 fL 04/25/2025 8:31 AM EDT [facility] MCH 28.0 25.7 - 32.2 pg 04/25/2025 8:31 AM EDT [facility] MCHC 31.6(L) 32.3 - 36.5 GM/DL 04/25/2025 8:31 AM EDT [facility] RDW 14.7(H) 11.6 - 14.4 % 04/25/2025 8:31 AM EDT [facility] Platelets 420(H) 140 - 375 K/CU MM 04/25/2025 8:31 AM EDT [facility] MPV 8.5(L) 9.4 - 12.4 fL 04/25/2025 8:31 AM EDT [facility] Blood Venipuncture / Unknown 04/25/2025 7:16 AM EDT 04/25/2025 8:08 AM EDT us Te Hope PA-C LAB BLOOD ORDERABLES Final R esult [facility] [address] [place], [place] [id number], [facility] [phone] * Glucose, Nova Meter (04/25/2025 5:01 AM EDT) Pathologist [facility] POC-GLUCOSE 88 70 - 110 mg/dL 04/25/2025 5:02 AM EDT [facility] Comment: In the event of poor peripheral blood flow, venous or arterial blood should be used due to the potential of erroneous results. Notified Nurse RBV On Site Manager [phone] 04/25/2025 5:02 AM EDT [facility] Blood WHOLE BLOOD / Unknown 04/25/2025 5:01 AM EDT 04/25/2025 5:02 AM EDT Narrative [facility] - 04/25/2025 5:02 AM EDT On Site Manager ID is - [id number] Te Hope PA-C POINT OF CARE TEST ORDERABLE S Final Result Performing Organization Address City/[facility]/ZIP Co de Phone Number [facility] 1 [place] [address], [facility] [phone] * (ABNORMAL) C-Reactive Protein (04/25/2025 4:21 AM EDT) CRP 6.6(H) 0.0 - 5.0 mg/L 04/25/2025 4:59 AM EDT [facility] Blood Venipuncture / Unknown 04/25/2025 4:21 AM EDT 04/25/2025 4:29 AM EDT Te Hope PA-C LAB BLOOD ORDERABLES Final R esult Performing Organization Address City/[facility]/ZIP Co de Phone Number [facility] 1 [place] [address], [facility] [phone] * (ABNORMAL) Comprehensive metabolic panel (04/25/2025 4:21 AM EDT) Sodium 140 136 - 145 meq/L 04/25/2025 5:08 AM EDT [facility] Potassium 4.6 3.4 - 5.1 meq/L 04/25/2025 5:08 AM EDT [facility] Chloride 112 98 - 112 meq/L 04/25/2025 5:08 AM EDT [facility] CO2 21(L) 22 - 29 meq/L 04/25/2025 5:08 AM EDT [facility] Calcium 8.3(L) 8.4 - 10.2 mg/dL 04/25/2025 5:08 AM [facility] Glucose 98 82 - 115 mg/dL 04/25/2025 5:08 AM [facility] BUN 9.3 8.4 - 25.7 mg/dL 04/25/2025 5:08 AM [facility] Creatinine 1.04 0.72 - 1.25 mg/dL 04/25/2025 5:08 AM [facility] BUN/Creatinine 9 8 - 20 04/25/2025 5:08 AM [facility] eGFR (mL/min/1.73m2) 79 >=60 mL/min/1. 73m2 04/25/2025 5:08 AM [facility] Albumin 2.6(L) 3.5 - 5.0 g/dL 04/25/2025 5:08 AM [facility] Alkaline Phosphatase 77 40 - 150 U/L 04/25/2025 5:08 AM [facility] ALT <7 <=45 U/L 04/25/2025 5:08 AM [facility] Comment: ALT2 reagent used for testing does not contain P5P supplementation and therefore may miss ALT elevations in patients with B6 deficiency. This population may be as high as 10% in the [place], with risk factors including malabsorption, drug interactions, and alcoholic hepatitis. AST 20 11 - 34 U/L 04/25/2025 5:08 AM [facility] Comment: AST2 reagent used for testing does not contain P5P supplementation and therefore may miss AST elevations in patients with B6 deficiency. This population may be as high as 10% in the [place], with risk factors including malabsorption, drug interactions, and alcoholic hepatitis. Total Bilirubin 0.3 0.2 - 1.2 mg/dL 04/25/2025 5:08 AM [facility] Protein, Total 6.3(L) 6.4 - 8.3 g/dL 04/25/2025 5:08 AM [facility] Globulin 3.7 2.5 - 4.1 g/dL 04/25/2025 5:08 AM [facility] Anion Gap 12 4 - 12 04/25/2025 5:08 AM EDT [facility] A/G Ratio 0.7 0.7 - 1.9 04/25/2025 5:08 AM EDT [facility] Osmolality Calc 278.2 mOsm/kg 5:08 AM EDT [facility] Blood Venipuncture / Unknown 04/25/2025 4:21 AM EDT 04/25/2025 4:29 AM EDT Te Hope PA-C LAB BLOOD ORDERABLES Final R esult Performing Organization Address City/[facility]/ZIP Co de Phone Number [facility] [address] [phone] * Lactic acid (SJ) (04/25/2025 4:20 AM EDT) Lactic Acid Level (mmol/L) 1.2 0.5 - 2.2 mmol/L 04/25/2025 4:48 AM EDT [facility] Blood Venipuncture / Unknown 04/25/2025 4:20 AM EDT 04/25/2025 4:29 AM EDT Te Hope PA-C LAB BLOOD ORDERABLES Final R esult Performing Organization Address City/[facility]/ZIP Co de Phone Number [facility] [address] [phone] * Glucose, Nova Meter (04/24/2025 8:26 PM EDT) POC-GLUCOSE 105 70 - 110 mg/dL 04/24/2025 8:27 PM EDT [facility] Comment: In the event of poor peripheral blood flow, venous or arterial blood should be used due to the potential of erroneous results. Notified Nurse RBV On Site Manager [phone] 04/24/2025 8:27 PM EDT [facility] Blood WHOLE BLOOD / Unknown 04/24/2025 8:26 PM EDT 04/24/2025 8:27 PM EDT Narrative [facility] - 04/24/2025 8:27 PM EDT On Site Manager ID is - [id number] Te Hope PA-C POINT OF CARE TEST ORDERABLE S Final Result [facility] [address] [phone] * XR chest AP portable (04/24/2025 4:19 PM EDT) Anatomical Region Laterality Modality Chest X-Ray 04/24/2025 4:40 PM EDT Impressions 04/24/2025 4:54 PM EDT No acute cardiopulmonary process. Images reviewed, interpreted, and dictated by Dr. Davi Perze. Transcribed by Mary Beth Ram Narrative 04/24/2025 4:54 PM EDT PORTABLE CHEST 04/24/2025 4:19 PM HISTORY: Sepsis. COMPARISON: April 11, 2025. FINDINGS: The heart is normal in size. The patient is status post sternotomy for CABG. The mediastinum is unremarkable. The lungs are clear. There is no pneumothorax. Procedure Note Davi Perez MD - 04/24/2025 PORTABLE CHEST 04/24/2025 4:19 PM HISTORY: Sepsis. COMPARISON: April 11, 2025. FINDINGS: The heart is normal in size. The patient is status post sternotomy for CABG. The mediastinum is unremarkable. The lungs are clear. There is no pneumothorax. IMPRESSION: No acute cardiopulmonary process. Images reviewed, interpreted, and dictated by Dr. Davi Perez. Transcribed by Mary Beth Ram us Marixa Pennington APRN IMG DIAGNOSTIC IMAGING ORDERA BLES Final Result * Blood Culture (04/24/2025 4:07 PM EDT) Result No growth in 5 days 04/29/2025 5:01 PM EDT [facility] Blood Venipuncture / Unknown 04/24/2025 4:07 PM EDT 04/24/2025 4:14 PM EDT us Marixa Pennington APRN MICROBIOLOGY - GENERAL ORDERA BLES Final Result Performing Organization Address [facility] Co de Phone Number [facility] [address] [phone] * Blood Culture (04/24/2025 4:07 PM EDT) Result No growth in 5 days 04/29/2025 5:01 PM EDT [facility] Blood Venipuncture / Unknown 04/24/2025 4:07 PM EDT 04/24/2025 4:14 PM EDT us Marixa Pennington APRN MICROBIOLOGY - GENERAL ORDERA BLES Final Result Performing Organization Address [facility] Co de Phone Number [facility] [address] [phone] * (ABNORMAL) Lactic Acid with reflex (SJ) (04/24/2025 4:07 PM EDT) Lactic Acid Level (mmol/L) 2.4(HH) 0.5 - 2.2 mmol/L 04/24/2025 4:46 PM EDT [facility] Blood Venipuncture / Unknown 04/24/2025 4:07 PM EDT 04/24/2025 4:14 PM EDT us Marixa Pennington APRN LAB BLOOD ORDERABLES Final Re sult Performing Organization Address [facility]/ZIP Co de Phone Number [facility] 1 [place] [address], [facility] [phone] * (ABNORMAL) Comprehensive metabolic panel (04/24/2025 4:07 PM EDT) Sodium 143 136 - 145 meq/L 04/24/2025 4:41 PM EDT [facility] Potassium 4.5 3.4 - 5.1 meq/L 04/24/2025 4:41 PM [facility] Chloride 108 98 - 112 meq/L 04/24/2025 4:41 PM [facility] CO2 24 22 - 29 meq/L 04/24/2025 4:41 PM [facility] Calcium 9.3 8.4 - 10.2 mg/dL 04/24/2025 4:41 PM [facility] Glucose 99 82 - 115 mg/dL 04/24/2025 4:41 PM [facility] BUN 10.0 8.4 - 25.7 mg/dL 04/24/2025 4:41 PM [facility] Creatinine 1.10 0.72 - 1.25 mg/dL 04/24/2025 4:41 PM [facility] BUN/Creatinine 9 8 - 20 04/24/2025 4:41 PM [facility] eGFR (mL/min/1.73m2) 74 >=60 mL/min/1. 73m2 04/24/2025 4:41 PM [facility] Albumin 3.3(L) 3.5 - 5.0 g/dL 04/24/2025 4:41 PM [facility] Alkaline Phosphatase 92 40 - 150 U/L 04/24/2025 4:41 PM [facility] ALT 10 <=45 U/L 04/24/2025 4:41 PM [facility] Comment: ALT2 reagent used for testing does not contain P5P supplementation and therefore may miss ALT elevations in patients with B6 deficiency. This population may be as high as 10% in the [place], with risk factors including malabsorption, drug interactions, and alcoholic hepatitis. AST 20 11 - 34 U/L 04/24/2025 4:41 PM [facility] Comment: AST2 reagent used for testing does not contain P5P supplementation and therefore may miss AST elevations in patients with B6 deficiency. This population may be as high as 10% in the [place], with risk factors including malabsorption, drug interactions, and alcoholic hepatitis. Total Bilirubin 0.2 0.2 - 1.2 mg/dL 04/24/2025 4:41 PM [facility] Protein, Total 8.2 6.4 - 8.3 g/dL 04/24/2025 4:41 PM EDT [facility] Globulin 4.9(H) 2.5 - 4.1 g/dL 04/24/2025 4:41 PM EDT [facility] Anion Gap 16(H) 4 - 12 04/24/2025 4:41 PM EDT [facility] A/G Ratio 0.7 0.7 - 1.9 04/24/2025 4:41 PM EDT [facility] Osmolality Calc 284.1 mOsm/kg 4:41 PM EDT [facility] Blood Venipuncture / Unknown 04/24/2025 4:07 PM EDT 04/24/2025 4:14 PM EDT us Marixa Pennington APRN LAB BLOOD ORDERABLES Final Re sult [facility] [address] [phone] * (ABNORMAL) CBC with automated diff (04/24/2025 4:07 PM EDT) WBC 11.8(H) 4.2 - 9.1 K/ L 04/24/2025 4:16 PM EDT [facility] RBC 4.40(L) 4.63 - 6.08 M/ L 04/24/2025 4:16 PM EDT [facility] Hemoglobin 12.1(L) 13.7 - 17.5 GM/DL 04/24/2025 4:16 PM EDT [facility] Hematocrit 38.1(L) 40.1 - 51.0 % 04/24/2025 4:16 PM EDT [facility] MCV 87 79 - 92 fL 04/24/2025 4:16 PM EDT [facility] MCH 27.5 25.7 - 32.2 pg 04/24/2025 4:16 PM EDT [facility] MCHC 31.8(L) 32.3 - 36.5 GM/DL 04/24/2025 4:16 PM EDT [facility] RDW 14.6(H) 11.6 - 14.4 % 04/24/2025 4:16 PM EDT [facility] Platelets 597(H) 140 - 375 K/CU MM 04/24/2025 4:16 PM T [facility] MPV 8.1(L) 9.4 - 12.4 fL 04/24/2025 4:16 PM EDT [facility] % Neutros 70(H) 34 - 68 % 04/24/2025 4:16 PM EDT [facility] % Lymphs 17(L) 22 - 53 % 04/24/2025 4:16 PM EDT [facility] % Monos 10 5 - 12 % 04/24/2025 4:16 PM EDT [facility] % Eos 2 1 - 7 % 04/24/2025 4:16 PM T [facility] % Baso 1 0 - 1 % 04/24/2025 4:16 PM EDT [facility] NRBC Absolute <0.01 0 - 0.012 K/ul 04/24/2025 4:16 PM EDT [facility] # Neutros 8.30(H) 1.78 - 5.38 K/ L 04/24/2025 4:16 PM T [facility] # Lymphs 1.99 1.32 - 3.57 K/ L 04/24/2025 4:16 PM T [facility] # Monos 1.16(H) 0.30 - 0.82 K/ L 04/24/2025 4:16 PM EDT [facility] # Eos 0.21 0.04 - 0.54 K/ L 04/24/2025 4:16 PM EDT [facility] # Baso 0.10(H) 0.01 - 0.08 K/ L 04/24/2025 4:16 PM EDT [facility] Immature Granulocytes-Re lative 0.40 0.01 - 0.43 % 04/24/2025 4:16 PM EDT [facility] # IG 0.05(H) 0.00 - 0.03 K/uL 04/24/2025 4:16 PM EDT [facility] Blood Venipuncture / Unknown 04/24/2025 4:07 PM EDT 04/24/2025 4:14 PM EDT Narrative [facility] - 04/24/2025 4:16 PM EDT When CBC w/ Auto Diff [...] Flag noted Atypical Lymph flag noted us Marixa Pennington APRN LAB BLOOD ORDERABLES Final Re sult Performing Organization Address [facility] Co de Phone Number [facility] [address] [phone] * ECG 12 lead (04/24/2025 3:54 PM EDT) VENTRICULAR RATE EKG/MIN 104 BPM GE MUSE ATRIAL RATE (MCT) 104 BPM GE MUSE OK Interval 129 ms GE MUSE QRS-INTERVAL (MSEC) 79 ms GE MUSE QT Interval 321 ms GE MUSE QTC Interval 422 ms GE MUSE P [place] 72 degrees GE MUSE R AXIS (MCT) 78 degrees GE MUSE T Wave [place] 59 degrees GE MUSE [place] Diagnosis Sinus tachycardia Nonspecific T wave abnormality Abnormal ECG No previous ECGs available Confirmed by Antonio Wheeler ([id number]) on 04/25/2025 1:31:49 PM GE MUSE 04/24/2025 3:54 PM EDT 04/25/2025 1:31 PM EDT us Marixa Pennington APRN ECG ORDERABLES Final Result Performing Organization Address [facility]/ZIP Co de Phone Number GE MUSE * Critical Care (04/24/2025 3:42 PM EDT) Narrative Claude Arriaga MD - 04/24/2025 3:42 PM EDT Claude Arriaga MD 04/24/2025 7:29 PM Critical Care Performed by: Claude Arriaga MD Authorized by: Claude Arriaga MD Critical care provider statement: Critical care time (minutes): 35 Critical care time was exclusive of: Separately billable procedures and treating other patients Critical care was necessary to treat or prevent imminent or life-threatening deterioration of the following conditions: Sepsis Critical care was time spent personally by me on the following activities: Blood draw for specimens, development of treatment plan with patient or surrogate, discussions with consultants, examination of patient, obtaining history from patient or surrogate, ordering and performing treatments and interventions and ordering and review of laboratory studies I assumed direction of critical care for this patient from another provider in my specialty: no us Claude Arriaga MD PROCEDURE/MINOR SURGICAL ORDER AIDAN Final Result * EKG-SCANNED (04/24/2025) Narrative 04/24/2025 Ordered by an unspecified provider. us Default Scanning Provider SCAN ORDERS Final Result documented in this encounter Visit Diagnoses Diagnosis Sepsis (HCC)- Primary Unspecified septicemia Sepsis, due to unspecified organism, unspecified whether acute organ dysfunction present (HCC) documented in this encounter Admitting Diagnoses Diagnosis Sepsis (HCC) Unspecified septicemia documented in this encounter Administered Medications Inactive Administered Medications - up to 3 most recent administrations Medication Order MAR Action Action Date Dose Rate Site acetaminophen (TYLENOL) tablet 1,000 mg 1,000 mg Every 6 hours PRN, oral, mild pain (1-3), headache, fever greater than or equal to 38C, Starting on Wed04/24/25 at 1733, 1st line analgesic aspirin EC tablet 325 mg 325 mg Every Night, oral, First dose on Wed04/24/25 at 2100, * DO NOT CRUSH THIS DOSAGE FORM * Given 04/30/2025 9:03 PM EDT 325 mg Given 04/29/2025 9:25 PM EDT 325 mg Given 04/28/2025 8:15 PM EDT 325 mg atorvastatin (LIPITOR) tablet 40 mg 40 mg Every Night, oral, First dose on Wed04/24/25 at 2100 Given 04/30/2025 9:03 PM EDT 40 mg Given 04/29/2025 9:25 PM EDT 40 mg Given 04/28/2025 8:15 PM EDT 40 mg cefTRIAXone (ROCEPHIN) 1 g in sodium chloride 0.9 % (NS) 50 mL SHANELLE IVPB 1 g Once, intravenous, at 100 mL/hr, On Wed04/24/25 at 1725, For 1 dose, Please choose an indication: Intra-abdominal Infection IVPB Started 04/24/2025 5:30 PM EDT 1 g 100 mL/hr cefTRIAXone (ROCEPHIN) 1 g in sodium chloride 0.9 % (NS) 50 mL SHANELLE IVPB 1 g Daily, intravenous, at 100 mL/hr, First dose (after last reorder) on Wed04/25/25 at 0900, Please choose an indication: Intra-abdominal Infection IVPB Started 05/01/2025 10:45 AM EDT 1 g 100 mL/hr IVPB Started 04/30/2025 12:05 PM EDT 1 g 100 mL/hr IVPB Started 04/29/2025 10:31 AM EDT 1 g 100 mL/hr DAPTOmycin (CUBICIN) 350 mg in sodium chloride 0.9% (NS) non-DEHP 50 mL IVPB 350 mg Every 24 hours, intravenous, Administer over 30 Minutes, First dose on Wed04/25/25 at 2100, USE IS RESTRICTED TO ID TEAM * PHARMACIST ADJUST DOSE ACCORDING TO POLICY *, Please choose an indication: Intra-abdominal Infection, Please choose an indication: Intra-abdominal Infection IVPB Started 04/30/2025 9:07 PM EDT 350 mg 100 m L/hr IVPB Started 04/29/2025 9:26 PM EDT 350 mg 100 mL/hr IVPB Started 04/28/2025 8:28 PM EDT 350 mg 100 mL/hr DAPTOmycin 350 mg in 0.9 % sodium chloride 50 mL infusion (premix) 350 mg Once, intravenous, On Wed04/24/25 at 1730, For 1 dose, USE IS RESTRICTED TO ID TEAM * PHARMACIST ADJUST DOSE ACCORDING TO POLICY *, Please choose an indication: Intra-abdominal Infection IVPB Started 04/25/2025 8:51 PM EDT 350 mg dextrose 50% (D50W) injection 25 g 25 g Every 15 min PRN, intravenous, low blood glucose (specify value in prn comments), less than 41 mg/dL or 41-69 mg/dL and unable to take PO, Starting on Wed04/24/25 at 1756, Repeat blood glucose every 15 minutes until blood glucose greater than 70 mg/dL. Call Provider if not resolved after 2 treatments Repeat BS in 1 hour, retime for 1 hour after blood sugar greater than 70 mg/dL If less than 41: Repeat Finger stick within 5 minutes with same machine Send serum glucose level: Do not wait on lab to treat glucagon injection 1 mg 1 mg Every 15 min PRN, intraMUSCULAR, low blood glucose (specify value in prn comments), For Patients without IV access and blood glucose 41-69 mg/dL AND unable to take PO OR Less than 41 mg/dL, Starting on Wed04/24/25 at 1756, Caution: glucagon . Roll patient on their side when administering to prevent aspiration. Call Provider if not resolved after 2 treatments Repeat BS in 1 hour, retime for 1 hour after blood sugar greater than 70 mg/dL glucose chew tab 16 g 16 g Every 15 min PRN, oral, low blood glucose (specify value in prn comments), 41-69 mg/dL, Starting on Wed04/24/25 at 1756, For Patients who can take oral AND [...] after blood sugar greater than 70 mg/dL hydrALAZINE (APRESOLINE) injection 10 mg 10 mg Every 6 hours PRN, intravenous, hypertension (sbp greater than 160), Starting on Wed04/24/25 at 1731, Hold if SBP < 100 mmHg, DBP < 50 mmHg, or patient is on pressor. Look-alike/Sound-alike medication HYDROcodone-acetaminophen (NORCO) 7.5-325 mg per tablet 1 tablet 1 tablet Every 6 hours PRN, oral, moderate pain (4-6), Starting on Wed04/24/25 at 1733, 1st line analgesic Given 05/01/2025 9:09 AM EDT 1 tablet Given 04/30/2025 9:03 PM EDT 1 tablet Given 04/30/2025 9:55 AM EDT 1 tablet insulin lispro (HUMALOG, ADMELOG) injection 0-18 Units 0-18 Units 4 times daily (before meals and nightly), subcutaneous, First dose on Wed04/24/25 at 1800, If Blood Sugar is less than 180 beteween [id number], DO NOT give corrective insulin unless otherwise ordered. Corrective Scale C 0 units for fingerstick blood glucose LESS than 140 mg/dL 3 units subcutaneously once for fingerstick blood glucose [140] - [180] mg/dL 6 units subcutaneously once for fingerstick blood glucose [181] - [220] mg/dL 9 units subcutaneously once for fingerstick blood glucose [221] - [260] mg/dL 12 units subcutaneously once for fingerstick blood glucose [261] - [300] mg/dL 15 units subcutaneously once for fingerstick blood glucose [301] - [350] mg/dL 18 units subcutaneously once for fingerstick blood glucose [351] - [400] mg/dL Notify provider of glucose levels LESS than [70] and GREATER than [400] Given 05/01/2025 10:59 AM EDT 3 Units Abdominal Tissue magnesium sulfate IVPB 2 g in sterile water 50 mL (premix) at 25 mL/hr, Administer over 120 Minutes, intravenous, Daily as needed, for magnesium level 1.3 to 1.7 mg/dL, Starting on Wed04/24/25 at 1731, If magnesium is replaced per protocol order, recheck 1 hour after replacement and the next morning. magnesium sulfate IVPB 2 g in sterile water 50 mL (premix) at 25 mL/hr, Administer over 120 Minutes, intravenous, 2 times daily PRN, for magnesium level less than 1.3 mg/dL, Starting on Wed04/24/25 at 1731, Total dose of 4 g for each low magnesium result. If magnesium is replaced per protocol order, recheck 1 hour after replacement and the next morning. melatonin tablet 3 mg 3 mg Every Night PRN, oral, insomnia, Starting on Wed04/24/25 at 1731 Given 04/24/2025 8:06 PM EDT 3 mg metoprolol succinate (TOPROL-XL) 24 hr tablet 50 mg 50 mg Every Night, oral, First dose on Wed04/24/25 at 2100, Hold for systolic BP < 90 mmHg or for HR < 50 BPM Do Not Crush or Chew (Tablet may be split) Given 04/30/2025 9:03 PM EDT 50 mg Given 04/29/2025 9:25 PM EDT 50 mg Given 04/28/2025 8:15 PM EDT 50 mg metroNIDAZOLE (FLAGYL) IVPB 500 mg in sodium chloride 0.9 % 100 mL (premix) 500 mg Once, intravenous, at 100 mL/hr, On Wed04/24/25 at 1725, For 1 dose, Please choose an indication: Intra-abdominal Infection IVPB Started 04/24/2025 5:47 PM EDT 500 mg 100 m L/hr metroNIDAZOLE (FLAGYL) IVPB 500 mg in sodium chloride 0.9 % 100 mL (premix) 500 mg Every 8 hours scheduled, intravenous, at 100 mL/hr, First dose (after last reorder) on Wed04/25/25 at 0030, Please choose an indication: Intra-abdominal Infection IVPB Started 05/01/2025 9:09 AM EDT 500 mg 100 mL/hr IVPB Started 05/01/2025 12:07 AM EDT 500 mg 100 mL/hr IVPB Started 04/30/2025 5:55 PM EDT 500 mg 100 mL/hr morphine injection 2 mg 2 mg Every 6 hours PRN, intravenous, severe pain (7-10), Starting on Wed04/24/25 at 1731, 3rd line analgesic. Give only if inadequate response (less than 50% reduction in pain score) 60 minutes after administration of 2nd line agent. May give in addition to 1st + 2nd line analgesics (+ adjuvants if ordered) Given 04/28/2025 8:24 PM EDT 2 m g Given 04/24/2025 8:05 PM EDT 2 mg morphine injection 4 mg 4 mg Once, intravenous, On Wed04/24/25 at 1550, For 1 dose Given 04/24/2025 4:13 PM EDT 4 mg naloxone (NARCAN) injection 0.2 mg 0.2 mg Every 2 min PRN, intravenous, opioid reversal, respiratory depression,, Starting on Wed04/24/25 at 1731, Give for respiratory rate less than 10 breaths/min or if patient is difficult to arouse. Max dose = 10mg. Call provider. ondansetron (ZOFRAN) injection 4 mg 4 mg Once, intravenous, On Wed04/24/25 at 1550, For 1 dose, For IV push, give over 2 - 5 minutes. Given 04/24/2025 4:13 PM EDT 4 mg ondansetron (ZOFRAN) injection 4 mg 4 mg Every 8 hours PRN, intravenous, nausea, vomiting, Starting on Wed04/24/25 at 1731, Give IV if patient is unable to take orally. 1st line If inadequate response within 60 minutes, proceed to next-line agent for same PRN reason or contact provider if no further options ordered. For IV push, give over 2 - 5 minutes. ondansetron (ZOFRAN-ODT) disintegrating tablet 4 mg 4 mg Every 8 hours PRN, oral, nausea, vomiting, Starting on Wed04/24/25 at 1731, 1st line. If inadequate response within 60 minutes, proceed to next-line agent for same PRN reason or contact provider if no further options ordered. piperacillin-tazobactam (ZOSYN) 4.5 g in sodium chloride 0.9 % (NS) MBP 100 mL IVPB 4.5 g Once, intravenous, at 200 mL/hr, On Wed04/24/25 at 1550, For 1 dose, Please choose an indication: Other Indication, Intra-abdominal Infection, Explanatory comment: post surgery IVPB Started 04/24/2025 4:13 PM EDT 4.5 g 200 mL/hr potassium chloride (KLOR-CON) ER tablet 40 mEq 40 mEq 4 times daily PRN, oral, for potassium less than or EQUAL to 3.4 mmol/L, Starting on Wed04/24/25 at 1731, Do not crush KCl tablets. If potassium is replaced per protocol order, recheck potassium 2 hour after replacement and the next morning. potassium chloride IVPB 10 mEq in 100 mL sterile water (premix) 10 mEq Every hour PRN, intravenous, Administer over 60 Minutes, for potassium less than or equal to 3.4 mmol/L, Starting on Wed04/24/25 at 1731, Total Dose 40 mEq, use only if unable to administer PO. Max Rate 10mEq/hr. If potassium is replaced per protocol order, recheck 1 hour after replacement and the next morning. QUEtiapine (SEROquel) tablet 200 mg 200 mg 2 times daily, oral, First dose on Wed04/24/25 at 2100 Given 05/01/2025 9:09 AM EDT 200 mg Given 04/30/2025 9:03 PM EDT 200 mg Given 04/30/2025 9:55 AM EDT 200 mg sodium chloride 0.9% (NS) bolus 2,355 mL Once (30 mL/kg 78.5 kg), intravenous, Administer over 2 Hours, On Wed04/24/25 at 1550, For 1 dose, Please round volume to nearest 100 mL up. New Bag 04/24/2025 4:11 PM EDT 2,355 mLs 1177.5 mL/hr sodium chloride flush 10 mL 10 mL As needed, intravenous, line care, Starting on Wed04/24/25 at 1547 sodium chloride flush 10 mL 10 mL Every 8 hours scheduled, intra-catheter, First dose on Sandy 04/26/25 at 1300 Given 05/01/2025 5:11 PM EDT 10 mLs Given 05/01/2025 6:01 AM EDT 10 mLs Given 04/30/2025 9:07 PM EDT 10 mLs sodium chloride flush 10 mL 10 mL As needed, intra-catheter, line care, If needed for step 1 or step 7 of declotting procedure, Starting on Wed04/26/25 at 1223 spironolactone (ALDACTONE) tablet 25 mg 25 mg Every Night, oral, First dose on Wed04/24/25 at 2100, Caution: Recommend wearing gloves during administration. DO NOT BREAK/CRUSH/CHEW. Employees who are , trying to become , or should not handle this medication. Dispose of trace medication (including packaging) in the BLACK waste bin., On hold since Wed04/25/2025 at 0831 until manually unheld Given 04/24/2025 8:06 PM EDT 25 mg tiZANidine (ZANAFLEX) tablet 4 mg 4 mg Every 8 hours PRN, oral, muscle spasms, Starting on Wed04/24/25 at 1755 Given 04/30/2025 9:03 PM EDT 4 mg Given 04/29/2025 9:31 PM EDT 4 mg Given 04/28/2025 8:15 PM EDT 4 mg valsartan (DIOVAN) tablet 40 mg 40 mg 2 times daily, oral, First dose on Wed04/24/25 at 2100, On hold since Wed04/25/2025 at 0831 until manually unheld Given 04/24/2025 8:06 PM EDT 40 mg documented in this encounter Active and Recently Administered Medications Times are shown in EDT. Scheduled Medication Order 04/29/2025 04/30/2025 05/01/2025 aspirin EC tablet 325 mg 325 mg Every Night, oral, First dose on Wed04/24/25 at 2100, * DO NOT CRUSH THIS DOSAGE FORM * 2124 (Given - Provider: Saul Mayorga RN) 2102 (Given - Provider: Saul Mayorga RN) atorvastatin (LIPITOR) tablet 40 mg 40 mg Every Night, oral, First dose on Wed04/24/25 at 2100 2124 (Given - Provider: Saul Mayorga RN) 2102 (Given - Provider: Saul Mayorga RN) cefTRIAXone (ROCEPHIN) 1 g in sodium chloride 0.9 % (NS) 50 mL SHANELLE IVPB 1 g Daily, intravenous, at 100 mL/hr, First dose (after last reorder) on Wed04/25/25 at 0900, Please choose an indication: Intra-abdominal Infection 1031 (IVPB Started - Provider: Sukhdeep Martines LPN)1146 (IVPB Stopped - Provider: Sukhdeep Martines LPN) 1205 (IVPB Started - Provider: Merly Troncoso)1307 (IVPB Stopped - Provider: Merly Troncoso) 1045 (IVPB Started - Provider: Merly Troncoso)1118 (IVPB Stopped - Provider: Merly Troncoso) DAPTOmycin (CUBICIN) 350 mg in sodium chloride 0.9% (NS) non-DEHP 50 mL IVPB 350 mg Every 24 hours, intravenous, Administer over 30 Minutes, First dose on Wed04/25/25 at 2100, USE IS RESTRICTED TO ID TEAM * PHARMACIST ADJUST DOSE ACCORDING TO POLICY *, Please choose an indication: Intra-abdominal Infection, Please choose an indication: Intra-abdominal Infection 2125 (IVPB Started - Provider: Saul Mayorga RN)2152 (IVPB Stopped - Provider: Saul Mayorga RN) 2106 (IVPB Started - Provider: Saul Mayorga RN)2128 (IVPB Stopped - Provider: Saul Mayorga RN) insulin lispro (HUMALOG, ADMELOG) injection 0-18 Units 0-18 Units 4 times daily (before meals and nightly), subcutaneous, First dose on Wed04/24/25 at 1800, If Blood Sugar is less than 180 beteween [id number], DO NOT give corrective insulin unless otherwise ordered. Corrective Scale C 0 units for fingerstick blood glucose LESS than 140 mg/dL 3 units subcutaneously once for fingerstick blood glucose [140] - [180] mg/dL 6 units subcutaneously once for fingerstick blood glucose [181] - [220] mg/dL 9 units subcutaneously once for fingerstick blood glucose [221] - [260] mg/dL 12 units subcutaneously once for fingerstick blood glucose [261] - [300] mg/dL 15 units subcutaneously once for fingerstick blood glucose [301] - [350] mg/dL 18 units subcutaneously once for fingerstick blood glucose [351] - [400] mg/dL Notify provider of glucose levels LESS than [70] and GREATER than [400] 0615 (Not Given - Provider: Prateek Pak RN - Reason: Contraindicated - Comment: bg 87)1032 (Not Given - Provider: Sukhdeep Martines LPN - Reason: VS / Lab Parameters not met)1630 (Not Given - Provider: Sukhdeep Martines LPN - Reason: VS / Lab Parameters not met)210 (Not Given - Provider: Saul Mayorga RN - Reason: Other (with Comment) - Comment: pt bs 118) 0639 (Not Given - Provider: Saul Mayorga RN - Reason: Order parameters not met - Comment: patients bs is 91)1309 (Not Given - Provider: Merly Troncoso - Reason: Order parameters not met)1756 (Not Given - Provider: Merly Troncoso - Reason: Patient/family refused)2031 (Not Given - Provider: Saul Mayorga RN - Reason: Order parameters not met - Comment: bs 130) 0630 (Not Given - Provider: Saul Mayorga RN - Reason: Order parameters not met - Comment: patient bs 130)1059 (Given - Provider: Merly Troncoso)1711 (Not Given - Provider: Merly Troncoso - Reason: Order parameters not met) metoprolol succinate (TOPROL-XL) 24 hr tablet 50 mg 50 mg Every Night, oral, First dose on Wed04/24/25 at 2100, Hold for systolic BP < 90 mmHg or for HR < 50 BPM Do Not Crush or Chew (Tablet may be split) 2124 (Given - Provider: Saul Mayorga RN) 2102 (Given - Provider: Saul Mayorga RN) metroNIDAZOLE (FLAGYL) IVPB 500 mg in sodium chloride 0.9 % 100 mL (premix) 500 mg Every 8 hours scheduled, intravenous, at 100 mL/hr, First dose (after last reorder) on Wed04/25/25 at 0030, Please choose an indication: Intra-abdominal Infection 0153 (IVPB Started - Provider: Prateek Pak RN)0339 (IVPB Stopped - Provider: Prateek Pak RN)0922 (IVPB Started - Provider: Sukhdeep Martines LPN)1026 (IVPB Stopped - Provider: Sukhdeep Martines LPN)1528 (IVPB Started - Provider: Sukhdeep Martines LPN)1629 (IVPB Stopped - Provider: Sukhdeep Martines LPN) 0045 (IVPB Started - Provider: Saul Mayorga RN)0119 (IVPB Stopped - Provider: Saul Mayorga RN)0953 (IVPB Started - Provider: Merly Troncoso)1205 (IVPB Stopped - Provider: Merly Troncoso)1755 (IVPB Started - Provider: Merly Troncoso) 0002 (IVPB Stopped - Provider: Saul Mayorga RN)0007 (IVPB Started - Provider: Saul Mayorga RN)0102 (IVPB Stopped - Provider: Saul Mayorga RN)0909 (IVPB Started - Provider: Merly Troncoso)1018 (IVPB Stopped - Provider: Merly Troncoso)1621 (Not Given - Provider: Merly Troncoso - Reason: Per MD Order - Comment: derrick gave verbal order to not give this dose) QUEtiapine (SEROquel) tablet 200 mg 200 mg 2 times daily, oral, First dose on Wed04/24/25 at 2100 0922 (Given - Provider: Sukhdeep Martines LPN)2124 (Given - Provider: Saul Mayorga RN) 0955 (Given - Provider: Merly Troncoso)210 (Given - Provider: Saul Mayorga RN) 0909 (Given - Provider: Merly Troncoso) sodium chloride flush 10 mL 10 mL Every 8 hours scheduled, intra-catheter, First dose on Wed04/26/25 at 1300 0538 (Given - Provider: Prateek Pak RN)1212 (Given - Provider: Sukhdeep Martines LPN)2126 (Given - Provider: Saul Mayorga RN) 0506 (Given - Provider: Saul Mayorga RN - Comment: patients catheter was flushed while obtaining blood draw from picc line other line had already been infusing.)1412 (Given - Provider: Merly Troncoso)2107 (Given - Provider: Saul Mayorga RN) 06 (Given - Provider: Saul Mayorga RN)171 (Given - Provider: Merly Troncoso) spironolactone (ALDACTONE) tablet 25 mg 25 mg Every Night, oral, First dose on Wed04/24/25 at 2100, Caution: Recommend wearing gloves during administration. DO NOT BREAK/CRUSH/CHEW. Employees who are , trying to become , or should not handle this medication. Dispose of trace medication (including packaging) in the BLACK waste bin., On hold since Wed04/25/2025 at 0831 until manually unheld 2099 (Not Given - Provider: Saul Mayorga RN - Reason: Per MD Order) 2099 (Not Given - Provider: Saul Mayorga RN - Reason: Per Order) 190 (Unheld by provider - Provider: Automatic Discharge Provider) valsartan (DIOVAN) tablet 40 mg 40 mg 2 times daily, oral, First dose on Wed04/24/25 at 2100, On hold since Wed04/25/2025 at 0831 until manually unheld 0900 (Not Given - Provider: Sukhdeep Martines LPN - Reason: Per MD Order)2099 (Not Given - Provider: Saul Mayorga RN - Reason: Per MD Order) 0900 (Automatically Held - Provider: Samantha Manzo MD)2099 (Not Given - Provider: Saul Mayorga RN - Reason: Per MD Order) 0900 (Automatically Held)190 (Unheld by provider - Provider: Automatic Discharge Provider) PRN Medication Order 04/29/2025 04/30/2025 05/01/2025 acetaminophen (TYLENOL) tablet 1,000 mg 1,000 mg Every 6 hours PRN, oral, mild pain (1-3), headache, fever greater than or equal to 38C, Starting on Wed04/24/25 at 1733, 1st line analgesic dextrose 50% (D50W) injection 25 g 25 g Every 15 min PRN, intravenous, low blood glucose (specify value in prn comments), less than 41 mg/dL or 41-69 mg/dL and unable to take PO, Starting on Wed04/24/25 at 1756, Repeat blood glucose every 15 minutes until blood glucose greater than 70 mg/dL. Call Provider if not resolved after 2 treatments Repeat BS in 1 hour, retime for 1 hour after blood sugar greater than 70 mg/dL If less than 41: Repeat Finger stick within 5 minutes with same machine Send serum glucose level: Do not wait on lab to treat glucagon injection 1 mg 1 mg Every 15 min PRN, intraMUSCULAR, low blood glucose (specify value in prn comments), For Patients without IV access and blood glucose 41-69 mg/dL AND unable to take PO OR Less than 41 mg/dL, Starting on Wed04/24/25 at 1756, Caution: glucagon . Roll patient on their side when administering to prevent aspiration. Call Provider if not resolved after 2 treatments Repeat BS in 1 hour, retime for 1 hour after blood sugar greater than 70 mg/dL glucose chew tab 16 g 16 g Every 15 min PRN, oral, low blood glucose (specify value in prn comments), 41-69 mg/dL, Starting on Wed04/24/25 at 1756, For Patients who can take oral AND [...] after blood sugar greater than 70 mg/dL hydrALAZINE (APRESOLINE) injection 10 mg 10 mg Every 6 hours PRN, intravenous, hypertension (sbp greater than 160), Starting on Wed04/24/25 at 1731, Hold if SBP < 100 mmHg, DBP < 50 mmHg, or patient is on pressor. Look-alike/Sound-alike medication HYDROcodone-acetaminophen (NORCO) 7.5-325 mg per tablet 1 tablet 1 tablet Every 6 hours PRN, oral, moderate pain (4-6), Starting on Wed04/24/25 at 1733, 1st line analgesic 0924 (Given - Provider: Sukhdeep Martines LPN)1529 (Given - Provider: Sukhdeep Martines LPN) 0955 (Given - Provider: Merly Troncoso)2103 (Given - Provider: Saul Mayorga RN) 0909 (Given - Provider: Merly Troncoso) magnesium sulfate IVPB 2 g in sterile water 50 mL (premix) at 25 mL/hr, Administer over 120 Minutes, intravenous, Daily as needed, for magnesium level 1.3 to 1.7 mg/dL, Starting on Wed04/24/25 at 1731, If magnesium is replaced per protocol order, recheck 1 hour after replacement and the next morning. magnesium sulfate IVPB 2 g in sterile water 50 mL (premix) at 25 mL/hr, Administer over 120 Minutes, intravenous, 2 times daily PRN, for magnesium level less than 1.3 mg/dL, Starting on Wed04/24/25 at 1731, Total dose of 4 g for each low magnesium result. If magnesium is replaced per protocol order, recheck 1 hour after replacement and the next morning. melatonin tablet 3 mg 3 mg Every Night PRN, oral, insomnia, Starting on Wed04/24/25 at 1731 morphine injection 2 mg 2 mg Every 6 hours PRN, intravenous, severe pain (7-10), Starting on Wed04/24/25 at 1731, 3rd line analgesic. Give only if inadequate response (less than 50% reduction in pain score) 60 minutes after administration of 2nd line agent. May give in addition to 1st + 2nd line analgesics (+ adjuvants if ordered) naloxone (NARCAN) injection 0.2 mg 0.2 mg Every 2 min PRN, intravenous, opioid reversal, respiratory depression,, Starting on Wed04/24/25 at 1731, Give for respiratory rate less than 10 breaths/min or if patient is difficult to arouse. Max dose = 10mg. Call provider. ondansetron (ZOFRAN) injection 4 mg(Linked Group 1) 4 mg Every 8 hours PRN, intravenous, nausea, vomiting, Starting on Wed04/24/25 at 1731, Give IV if patient is unable to take orally. 1st line If inadequate response within 60 minutes, proceed to next-line agent for same PRN reason or contact provider if no further options ordered. For IV push, give over 2 - 5 minutes. ondansetron (ZOFRAN-ODT) disintegrating tablet 4 mg(Linked Group 1) 4 mg Every 8 hours PRN, oral, nausea, vomiting, Starting on Wed04/24/25 at 1731, 1st line. If inadequate response within 60 minutes, proceed to next-line agent for same PRN reason or contact provider if no further options ordered. potassium chloride (KLOR-CON) ER tablet 40 mEq 40 mEq 4 times daily PRN, oral, for potassium less than or EQUAL to 3.4 mmol/L, Starting on Wed04/24/25 at 1731, Do not crush KCl tablets. If potassium is replaced per protocol order, recheck potassium 2 hour after replacement and the next morning. potassium chloride IVPB 10 mEq in 100 mL sterile water (premix) 10 mEq Every hour PRN, intravenous, Administer over 60 Minutes, for potassium less than or equal to 3.4 mmol/L, Starting on Wed04/24/25 at 1731, Total Dose 40 mEq, use only if unable to administer PO. Max Rate 10mEq/hr. If potassium is replaced per protocol order, recheck 1 hour after replacement and the next morning. sodium chloride flush 10 mL 10 mL As needed, intravenous, line care, Starting on Wed04/24/25 at 1547 sodium chloride flush 10 mL 10 mL As needed, intra-catheter, line care, If needed for step 1 or step 7 of declotting procedure, Starting on Sandy 04/26/25 at 1223 tiZANidine (ZANAFLEX) tablet 4 mg 4 mg Every 8 hours PRN, oral, muscle spasms, Starting on Wed04/24/25 at 1755 2131 (Given - Provider: Saul Mayorga, DUSTIN) 2103 (Given - Provider: Saul Mayorga RN) Linked Groups Order Group 1: ondansetron (ZOFRAN-ODT) disintegrating tablet 4 mgJump to med 4 mg Every 8 hours PRN, oral, nausea, vomiting, Starting on Wed04/24/25 at 1731, 1st line. If inadequate response within 60 minutes, proceed to next-line agent for same PRN reason or contact provider if no further options ordered. Or ondansetron (ZOFRAN) injection 4 mgJump to med 4 mg Every 8 hours PRN, intravenous, nausea, vomiting, Starting on Wed04/24/25 at 1731, Give IV if patient is unable to take orally. 1st line If inadequate response within 60 minutes, proceed to next-line agent for same PRN reason or contact provider if no further options ordered. For IV push, give over 2 - 5 minutes. documented in this encounter Care Teams Power Cutting Machine Operator Relationship Specialty Start Date End Date Tay Vaca MD [address] [place] [address] PCP - General Family Medicine 04/24/25 documented as of this encounter
--- OUTSIDE RECORDS SUMMARY | 2025-05-22 11:30 | XMS_ITS ---
Author Organization [facility] Address [address] [place] [address] [address] [place] [phone] Phone Care Team Providers Care Looper Fixer Name Role Phone Lm RICHARDS, Murtaza Hayes Unavailable [ ] Conditions or Problems No information available. Medications No information available. Medications Administered No information available. Allergies, Adverse Reactions, Alerts No information available. Results Date Name Value Unit Range Flag Description Office Visit: Office Visit: [facility] 9 FALLRSKASSES yes Fall ris k assessment MEDS REVIEW Done Documenta tion of current medications (procedure) SMOK STATUS Current every da y smoker Tobacco smoking status Plan of Care Type Date Detail Appointment 12:30 PM Murtaza hung MD, [address], [address], [place], [address], Pending order CMP Pending order CBC with Differe ntial Pending order C- reactive prot ein Pending order Continue oral an tibiotics Procedures Code Procedure Name Date Entry Date G2211 Complex E&M visit add-on (G2211) CPT-39920 CMP [id number] CBC with Differential 2024 CPT-55707 C- reactive protein CPT-Cooral Continue oral antibiotics 20 31/05/16 Vital Signs Date Name Value Unit Description BMI (Body Mass Index) 25.10 kg/m2 Bod y Mass Index (Ratio) Body Temperature 97.9 [degF] temperat ure E&M BP Diastolic 62 mm[Hg] blood pressu re, diastolic BP Systolic 112 mm[Hg] blood pressur e, systolic Heart Rate 88 /min pulse rate Height 69 [in_us] height E&M Respiratory Rate 16 /min respirat ory rate E&M Weight Measured 170.0 [lb_av] weight E& M Weight Measured 170.0 [lb_av] weight E& M Immunizations No information available. Advance Directives Directive Description Start Date NO ADVANCE DIRECTIVES AT THIS TIME 05/22
--- OUTSIDE RECORDS SUMMARY | 2025-05-22 14:15 | XMS_ITS | Encounter Summary ---
Author Organization [facility] Address [address] [place] [address] Care Team Providers Care Table Setter Name Role Phone Provider, No Known Primary Care Provider Unavail able Encounter Details Date Type Department Care Team (Late st Contact Info) Description 05/22/2025 2:15 PM EDT Lab [facility] [address] [place] [address] Cellulitis of groin; Pitted keratolysis; Intestinovesical fistula; Type 2 diabetes mellitus with proliferative retinopathy, with long-term current use of insulin, macular edema presence unspecified, unspecified laterality, unspecified proliferative retinopathy type; Intraocular lens associated postoperative inflammation, subsequent encounter; Abscess of groin Social History Tobacco Use Types Packs/Day Years Used Date Smoking Tobacco: Never Assessed Abuse Screen Answer Date Recorded Unsafe at Home or Work/School Not on file Feels Threatened by Someone? Not on file 05/2023 Does Anyone Keep You from Co ntacting Others or Doint Things Outside the Home? Not on file 06/14/2023 Physical Sign of Abuse Present Not on file 1 Housing Stability Answer Date Recorded Current Living Arrangements Not on file 05/2023 Potentially Unsafe Housing Conditions Not on brandy e 06/14/2023 Family and Community Support Answer Gus e Recorded Help with Day-to-Day Activities Not on file 06/14/2023 Lonely or Isolated Not on file 06/14/2023 Employment Answer Date Recorded Do you want help finding or keeping work or a kendra b? Not on file 06/14/2023 Disabilities Answer Date Recorded Concentrating, Remembering, or Making Decisions Difficulty Not on file 06/14/2023 Doing Errands Independently Difficulty Not on fi le 06/14/2023 Education Answer Date Recorded Help with school or training? Not on file Preferred Language Not on file 06/14/2023 Sex and Gender Information Value Date Recorded Sex Assigned at Not on file Legal Sex Male 12:15 PM EDT Gender Identity Not on file Sexual Orientation Not on file documented as of this encounter Plan of Treatment Not on file documented as of this encounter Procedures Procedure Name Priority Date/Time Associated Diagnosis Comments CBC WITH AUTO DIFFERENTIAL STAT 05/22/2025 1:11 PM EDT Cellulitis of groin 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, with long-term current use of insulin, macular edema presence unspecified, unspecified laterality, unspecified proliferative retinopathy type Intraocular lens associated postoperative inflammation, subsequent encounter Abscess of groin CBC AND DIFFERENTIAL STAT 05/22/2025 1:11 PM EDT Cellulitis of groin 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, with long-term current use of insulin, macular edema presence unspecified, unspecified laterality, unspecified proliferative retinopathy type Intraocular lens associated postoperative inflammation, subsequent encounter Abscess of groin C-REACTIVE PROTEIN STAT 05/22/2025 1: 11 PM EDT Cellulitis of groin 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, with long-term current use of insulin, macular edema presence unspecified, unspecified laterality, unspecified proliferative retinopathy type Intraocular lens associated postoperative inflammation, subsequent encounter Abscess of groin COMPREHENSIVE METABOLIC PANEL STAT 05/22/2025 1:11 PM EDT Cellulitis of groin 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, with long-term current use of insulin, macular edema presence unspecified, unspecified laterality, unspecified proliferative retinopathy type Intraocular lens associated postoperative inflammation, subsequent encounter Abscess of groin documented in this encounter Results * (ABNORMAL) CBC Auto Differential (05/22/2025 1:11 PM EDT) WBC 5.68 3.40 - 10.80 10*3/mm3 05/22/2025 1:28 PM EDT [facility] RBC 4.29 4.14 - 5.80 10*6/mm3 05/22/2025 1:28 PM EDT [facility] Hemoglobin 11.7(L) 13.0 - 17.7 g/dL 05/22/2025 1:28 PM EDT [facility] Hematocrit 36.8(L) 37.5 - 51.0 % 05/22/2025 1:28 PM EDT [facility] MCV 85.8 79.0 - 97.0 fL 05/22/2025 1:28 PM EDT [facility] MCH 27.3 26.6 - 33.0 pg 05/22/2025 1:28 PM EDT [facility] MCHC 31.8 31.5 - 35.7 g/dL 05/22/2025 1:28 PM EDT [facility] RDW 14.6 12.3 - 15.4 % 05/22/2025 1:28 PM EDT [facility] RDW-SD 45.3 37.0 - 54.0 fl 05/22/2025 1:28 PM EDT [facility] MPV 9.3 6.0 - 12.0 fL 05/22/2025 1:28 PM EDT [facility] Platelets 186 140 - 450 10*3/mm3 05/22/2025 1:28 PM EDT [facility] Neutrophil % 60.5 42.7 - 76.0 % 05/22/2025 1:28 PM EDT [facility] Lymphocyte % 26.2 19.6 - 45.3 % 05/22/2025 1:28 PM EDT [facility] Monocyte % 10.4 5.0 - 12.0 % 05/22/2025 1:28 PM EDT [facility] Eosinophil % 1.6 0.3 - 6.2 % 05/22/2025 1:28 PM EDT [facility] Basophil % 0.9 0.0 - 1.5 % 05/22/2025 1:28 PM EDT [facility] Immature Grans % 0.4 0.0 - 0.5 % 05/22/2025 1:28 PM EDT [facility] Neutrophils, Absolute 3.44 1.70 - 7.00 10*3/mm3 05/22/2025 1:28 PM EDT [facility] Lymphocytes, Absolute 1.49 0.70 - 3.10 10*3/mm3 05/22/2025 1:28 PM EDT [facility] Monocytes, Absolute 0.59 0.10 - 0.90 10*3/mm3 05/22/2025 1:28 PM EDT [facility] Eosinophils, Absolute 0.09 0.00 - 0.40 10*3/mm3 05/22/2025 1:28 PM EDT [facility] Basophils, Absolute 0.05 0.00 - 0.20 10*3/mm3 05/22/2025 1:28 PM EDT [facility] Immature Grans, Absolute 0.02 0.00 - 0.05 10*3/mm3 05/22/2025 1:28 PM EDT [facility] nRBC 0.0 0.0 - 0.2 /100 WBC 05/22/2025 1:28 PM EDT [facility] Blood Venipuncture / Unknown 05/22/2025 1:11 PM EDT 05/22/2025 1:11 PM EDT Murtaza Amato MD LAB BLOOD ORDERABLES Final Result [facility]
[address] [place] [address], * C-reactive Protein (05/22/2025 1:11 PM EDT) C-Reactive Protein <0.30 0.00 - 0.50 mg/dL 05/22/2025 1:52 PM EDT [facility] Blood Venipuncture / Unknown 05/22/2025 1:11 PM EDT 05/22/2025 1:11 PM EDT us Murtaza Amato MD LAB BLOOD ORDERABLES Final Result [facility]
[address] [place] [address], * (ABNORMAL) Comprehensive Metabolic Panel (05/22/2025 1:11 PM EDT) Glucose 102(H) 65 - 99 mg/dL 05/22/2025 1:52 PM EDT [facility] BUN 11.4 8.0 - 23.0 mg/dL 05/22/2025 1:52 PM EDT [facility] Creatinine 0.80 0.76 - 1.27 mg/dL 05/22/2025 1:52 PM EDT [facility] Sodium 140 136 - 145 mmol/L 05/22/2025 1:52 PM EDT [facility] Potassium 4.4 3.5 - 5.2 mmol/L 05/22/2025 1:52 PM EDT [facility] Chloride 108(H) 98 - 107 mmol/L 05/22/2025 1:52 PM EDT [facility] CO2 20.7(L) 22.0 - 29.0 mmol/L 05/22/2025 1:52 PM EDT [facility] Calcium 9.0 8.6 - 10.5 mg/dL 05/22/2025 1:52 PM EDT [facility] Total Protein 6.9 6.0 - 8.5 g/dL 05/22/2025 1:52 PM EDT [facility] Albumin 4.0 3.5 - 5.2 g/dL 05/22/2025 1:52 PM EDT [facility] ALT (SGPT) 7 1 - 41 U/L 05/22/2025 1:52 PM EDT [facility] AST (SGOT) 14 1 - 40 U/L 05/22/2025 1:52 PM EDT [facility] Alkaline Phosphatase 66 39 - 117 U/L 05/22/2025 1:52 PM EDT [facility] Total Bilirubin <0.2 0.0 - 1.2 mg/dL 05/22/2025 1:52 PM EDT [facility] Globulin 2.9 gm/dL 05/22/2025 1:52 PM EDT [facility] Comment:Calculated Result A/G Ratio 1.4 g/dL 05/22/2025 1:52 PM EDT [facility] BUN/Creatinine Ratio 14.3 7.0 - 25.0 05/22/2025 1:52 PM EDT [facility] Anion Gap 11.3 5.0 - 15.0 mmol/L 05/22/2025 1:52 PM EDT [facility] eGFR 97.6 >60.0 mL/min/1.7 3 05/22/2025 1:52 PM EDT [facility] Blood Venipuncture / Unknown 05/22/2025 1:11 PM EDT 05/22/2025 1:11 PM EDT [facility] - 05/22/2025 1:52 PM EDT GFR Categories in Chronic Kidney Disease (CKD) GFR Category GFR (mL/min/1.73) Interpretation G1 90 or greater Normal or high (1) G2 60-89 Mild decrease (1) G3a 45-59 Mild to moderate decrease G3b 30-44 Moderate to severe decrease G4 15-29 Severe decrease G5 14 or less Kidney failure (1)In the absence of evidence of kidney disease, neither GFR category G1 or G2 fulfill the criteria for CKD. eGFR calculation 2020 CKD-EPI creatinine equation, which does not include race as a factor us Murtaza Amato MD LAB BLOOD ORDERABLES Final Result [facility]
[address] [place] [address], documented in this encounter Visit Diagnoses Diagnosis Cellulitis of groin Cellulitis and abscess of trunk Pitted keratolysis Other specified erythematous condition Intestinovesical fistula Type 2 diabetes mellitus with proliferative retinopathy, with long-term current use of insulin, macular edema presence unspecified, unspecified laterality, unspecified proliferative retinopathy type Intraocular lens associated postoperative inflammation, subsequent encounter Abscess of groin Cellulitis and abscess of trunk documented in this encounter Care Teams Table Setter Relationship Specialty Start Date End Date Provider, [place] [address] PCP - General 05/22/25 documented as of this encounter
--- NOTE | 2025-05-29 09:55 | FL_ITS ---
FINAL REPORT CLINICAL HISTORY: COLO VESICAL FISTULA 1052.43 DAP 0.57 FLUORO TIME FINDINGS: CYSTOGRAM HISTORY: Colovesical fistula. PROCEDURE: Contrast was introduced in a retrograde fashion into the urinary bladder by gravity drip. Spot and overhead films were obtained. 12 total images were performed. FINDINGS: Derrick Boat Lever Operator film is normal. The urinary bladder distends appropriately. There is no leak of contrast. There is no evidence of colovesical fistula. Fluoroscopy exposure time: 57 seconds. Radiation exposure DAP: 1052 mGym2. IMPRESSION: No evidence of colovesical fistula. Images reviewed, interpreted, and dictated by Dr. Jeanie Melton. Transcribed by Gilbert Grullon PA-C. Reviewed, Interpreted and Dictated by Jeanie Melton MD Transcribed by KASHIF Arias Authenticated and [facility]
--- OUTSIDE RECORDS SUMMARY | 2025-05-29 09:56 | XMS_ITS | Encounter Summary ---
Author Organization [employer] ([place], [place], [place], [place]) Address [address] [place] [address] Care Team Providers Care Frame Runner Name Role Phone Unavailable Primary Care Provider Unavailabl e Encounter Details Date Type Department Care Team (Latest Contact Info) Description 04/09/2025 Travel Social History Tobacco Use Types Packs/Day Years [...] Date Record ed How often does anyone, triciazakiya akhil family and friends, physically hurt you? Never [...] Do you speak a language other than [place]uran at [facility]? No 04/09/2025 Do you want help [...]
--- OUTSIDE RECORDS SUMMARY | 2025-05-29 10:00 | XMS_ITS | Encounter Summary ---
Author Organization [facility] ([place], [place], [place], [place]) Address [address] [place] [address] Care Team Providers Care Floor Covering Contractor Name Role Phone Tay Vaca MD Primary Care Provider + Encounter Details Date Type Department Care Team (Latest Contact Info) Description 04/24/2025 Travel Social History Tobacco Use Types Packs/Day [...] Record ed How often does anyone, triciazakiya landaverde family and friends, physically hurt you? Never 04/24/2025 How often does anyone, mariusz landaverde family and friends, insult or talk down to you? Never 04/24/2025 How often does anyone, mariusz landaverde family and friends, threaten you with harm? Never 04/24/2025 How often does anyone, mariusz landaverde family [...] Do you speak a language other than [place] at [facility]? No 04/24/2025 Do you want help with [...] Diagnoses Not on filedocumented in this encounter Care Teams Floor Covering Contractor Relationship Specialty Start Date End Date Tay Vaca MD [address] [place] [id number] PCP - General Family Medicine 04/24/25 documented as of this encounter
--- OUTSIDE RECORDS SUMMARY | 2025-05-29 10:01 | XMS_ITS | Clinical Summary ---
Author Organization [facility] Address [address] [place] [address] Phone Care Team Providers Care Pharmacy Director Name Role Phone Status, Fax Unavailable Conditions or Problems Problem Name Problem Code Onset Date Status Entry Date Provider Comment Standard Description Annotate Clostridium infection B96.89 (ICD-10-CM ) 05/19 Active 05/19 Barbie Edwin Other specified bacterial agents as the cause of diseases classified elsewhere Infection/in flammatory reaction due to infected [place] mesh, subsequent encounter(s) T85.79xD (ICD-10-CM ) 05/19 Active 05/19 Barbie Edwin Infection and inflammatory reaction due to other internal prosthetic devices, implants and grafts, subsequent encounter Cellulitis, groin 92294859 (SNOMED CT) 05/19 Active 05/19 Barbie Edwin Cellulitis of groin Abscess, groin 72540971 (SNOMED CT) 05/19 Active 05/19 Barbie Edwin Abscess of groin Infection, local skin/subcuta neous tissue 051396327 (SNOMED CT) 05/19 Active 05/19 Barbie Edwin Localized infection of skin AND/OR subcutaneous tissue Enterococcal faecium infection B95.2 (ICD-10-CM ) 05/19 Active 05/19 Barbie Edwin Enterococcus as the cause of diseases classified elsewhere Klebsiella infection B96.1 (ICD-10-CM ) 05/19 Active 05/19 Barbie Edwin Klebsiella pneumoniae [K. 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 Resolved 01/17 Barbie Pineda Carrier or suspected carrier of Methicillin resistant Staphylococcus aureus Thrombophleb itis of right hand 112186493 (SNOMED CT) 01/17 Resolved 01/17 Barbie Pineda Thrombophlebitis of axillary vein Cellulitis of right hand L03.113 (ICD-10-CM ) 01/17 Resolved 01/17 Barbie Pineda Cellulitis of right upper limb Thrombophleb itis of right hand 335218178 (SNOMED CT) 01/17 Removed 01/17 Barbie Pineda Thrombophlebitis of axillary vein Cellulitis of right hand L03.113 (ICD-10-CM ) 01/17 Removed 01/17 Barbie Pineda Cellulitis of right upper limb 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/17 Removed 01/17 Barbie Pineda Carrier or suspected carrier of Methicillin resistant Staphylococcus aureus COPD 028386908 (SNOMED CT) 01/17 Active 01/17 Barbie Pineda Malignant neoplasm of lung Benign Essential Hypertension 0904201 (SNOMED CT) 01/17 Active 01/17 Barbie Pineda Benign essential hypertension Nicotine dependence, cigarettes F17.210 (ICD-10-CM ) 01/17 Active 01/17 Barbie Pineda Nicotine dependence, cigarettes, uncomplicated Medications Medication Instructions Start Date Stop Date Generic Name NDC Provider TIZANIDINE HCL 4 MG TABS Take 1 tablet (4 mg total) by mouth every 8 (eight) hours as needed for muscle spasms. tizanidine [id number] QIE qieuser QUETIAPINE FUMARATE 200 MG TABS Take 1 tablet (200 mg total) by mouth 2 (two) times daily. quetiapine 53359585788 QIE qieuser METRONIDAZOLE 500 MG TABS Take 1 tablet (500 mg total) by mouth 3 (three) times daily for 29 days. metronidazole 04820039239 QIE qieuser METOPROLOL SUCCINATE ER 50 MG [id number] Take 1 tablet (50 mg total) by mouth nightly. metoprolol succinate 64383303131 QIE qieuser METFORMIN HCL ER 500 MG [id number] Take 1 tablet (500 mg total) by mouth daily with dinner. metformin (glucophage xr) 50220607105 QIE qieuser LINEZOLID 600 MG TABS Take 1 tablet (600 mg total) by mouth 2 (two) times daily for 21 days. linezolid 43625786270 QIE qieuser FUROSEMIDE 20 MG TABS Take 1 tablet (20 mg total) by mouth daily as needed (for Edema/Swelling) . furosemide 06329294399 QIE qieuser ATORVASTATIN CALCIUM 40 MG TABS Take 1 tablet (40 mg total) by mouth nightly. atorvastatin 92937062907 QIE qieuser ASPIRIN 325 MG TBEC Take 1 tablet (325 mg total) by mouth nightly. aspirin 14446632512 QIE qieuser AMOXICILLIN-POT CLAVULANATE 875-125 MG TABS Take 1 tablet by mouth 2 (two) times daily with breakfast and dinner for 21 days. amoxicillin-pot clavulanate 73015891953 QIE qieuser DIGOXIN 125 MCG TABS once a day digoxin 40885478249 Vesta Carla PERCOCET 5-325 MG TABS three times a day oxycodone-acetam inophen 64374462367 Vesta Carla CELEXA 40 MG TABS once a day citalopram 16727404287 Vesta Carla METOPROLOL SUCCINATE ER 25 MG [id number] three times a day metoprolol succinate 18646275586 Vesta Carla SEROQUEL 200 MG TABS twice a day quetiapine 20593124316 Vesta Carla BUSPIRONE HCL 15 MG TABS three times a day buspirone 17675787037 Vesta Carla GABAPENTIN 300 MG CAPS as directed gabapentin 78318600288 Vesta Carla DOXYCYCLINE MONOHYDRATE 100 MG TABS twice a day doxycycline monohydrate 00621876192 Vesta Carla ADULT ASPIRIN EC LOW STRENGTH 81 MG ORAL TABLET DELAYED RELEASE twice a day ADULT ASPIRIN EC LOW STRENGTH 81 MG ORAL TABLET DELAYED RELEASE Vesta Carla SEROQUEL 200 MG TABS BID QUETIAPINE FUMARATE 55621165121 Rina Gonzáles PERCOCET 5-325 MG TABS TID OXYCODONE-ACETAM INOPHEN 34043108889 Rina Gonzáles METOPROLOL SUCCINATE ER 25 MG [id number] TID METOPROLOL SUCCINATE 34839102327 Rina Eliecer GABAPENTIN 300 MG CAPS As instructed GABAPENTIN 78491400861 Rina Eliecer DOXYCYCLINE MONOHYDRATE 100 MG TABS BID for 10 days DOXYCYCLINE MONOHYDRATE 00033443047 Rina M DIGOXIN 125 MCG TABS Daily DIGOXIN 68815055054 Rina M CELEXA 40 MG TABS Daily CITALOPRAM HYDROBROMIDE 02025277875 Rina M BUSPIRONE HCL 15 MG TABS TID BUSPIRONE HCL 26808256358 Rina Eliecer ADULT ASPIRIN EC LOW STRENGTH 81 MG ORAL TABLET DELAYED RELEASE BID ASPIRIN 81435493627 Rina Gonzáles Medications Administered No information available. Allergies, Adverse Reactions, Alerts Allergy Name Reaction Description Start Date Severity Statu s Provider MORPHINE SULFATE (PF) Moderate Active Rina Gonzáles Results Date Name Value Unit Range Flag Description Office Visit: Office Visit: hfu rm 9 FALLRSKASSES yes Fall ris k assessment MEDS REVIEW Done Documenta tion of current medications (procedure) SMOK STATUS Current every day smoker Tobacco smoking status Lab Report: CBC WITH AUTO DI FFERENTIAL ZZ-GE-[id number] 0.0 /100 WBC 0.0-0.2 GE use only - for [employer] import when terms are not otherwise specified IMMATUREGRAN 0.02 10*3/MM3 0.00-0.05 Immature granulocytes [#/volume] in Blood BASO# 0.05 10*3/mm3 0.00-0.20 Basophils [#/vol ume] in Blood EOS ABSLT 0.09 10*3/uL 0.00-0.40 Eosinophi ls [#/volume] in Blood MONOSCT AUTO 0.59 10*3/uL 0.10-0.90 Monocy malena [#/volume] in Blood by Automated count LYMPHCT AUTO 1.49 10*3/mm3 0.70-3.10 Lymph ocytes [#/volume] in Blood by Automated count ABS NEUTROPH 3.44 10*3/uL 1.70-7.00 Neutro phils [#/volume] in Blood IMM GRANU % 0.4 % 0.0-0.5 Immature granulocytes/100 leukocytes in Blood % EOS AUTO 1.6 % 0.3-6.2 Eosinophil s/100 leukocytes in Blood by Automated count MONOCYTE % 10.4 % 5.0-12.0 Monocytes /100 leukocytes in Blood by Automated count LYMPHOCY BF 26.2 % 19.6-45.3 lymphoc ytes as percent of body fluid leukocytes PMN % 60.5 % 42.7-76.0 Neutrophils /100 leukocytes in Blood by Automated count PLATELETS 186 10*3/mm3 140-450 Platelets [#/volume] in Blood by Automated count RDW_ 14.6 12.3-15.4 RDW, no uni ts MCHC 31.8 G/DL 31.5-35.7 MCHC [Mass/ volume] by Automated count MCH 27.3 pg 26.6-33.0 MCH [Entiti c mass] by Automated count MCV 85.8 fL 79.0-97.0 MCV [Entiti c volume] by Automated count HCT 36.8 % 37.5-51.0 L Hematocrit [Volume Fraction] of Blood by Automated count HGB 11.7 g/dL 13.0-17.7 L Hemoglobin [Mass/volume] in Blood RBC 4.29 10*6/mm3 4.14-5.80 Erythrocyt es [#/volume] in Blood by Automated count WBC 5.68 10*3/mm3 3.40-10.8 0 Leukocytes [#/volume] in Blood by Automated count Lab Report: C-REACTIVE PROTE IN CRP <0.30 mg/dL 0.00-0.50 C reactive protein [Mass/volume] in Serum or Plasma Lab Report: COMPREHENSIVE ME TABOLIC PANEL ANIONGAP 11.3 mmol/L 5.0-15.0 anion gap, serum BUN/CREAT 14.3 7.0-25.0 Urea nitrogen/Creatinine [Mass Ratio] in Serum or Plasma BILI TOTAL <0.2 mg/dL 0.0-1.2 Bilirubin. total [Mass/volume] in Serum or Plasma ALK PHOS 66 U/L 39-117 Alkaline giovanni sphatase [Enzymatic activity/volume] in Blood SGOT (AST) 14 U/L 1-40 Aspartate aminotransferase [Enzymatic activity/volume] in Serum or Plasma SGPT (ALT) 7 U/L 1-41 Alanine aminotransferase [Enzymatic activity/volume] in Serum or Plasma ALBUMIN 4.0 g/dL 3.5-5.2 Albumin [Mass/volume] in Serum or Plasma PROTEIN, TOT 6.9 g/dL 6.0-8.5 Protein [Mass/volume] in Serum or Plasma CALCIUM 9.0 mg/dL 8.6-10.5 Calcium [Moles/volume] in Serum or Plasma CO2 20.7 mmol/L 22.0-29.0 L Carbon diox henrik, total [Moles/volume] in Venous blood CHLORIDE 108 mmol/L 98-107 H Chloride [Moles/volume] in Serum or Plasma POTASSIUM 4.4 mmol/L 3.5-5.2 Potassium [Moles/volume] in Serum or Plasma SODIUM 140 mmol/L 136-145 Sodium [Moles/volume] in Serum or Plasma CREATININE 0.80 mg/dL 0.76-1.27 Creatini ne [Mass/volume] in Serum or Plasma BUN 11.4 mg/dL 8.0-23.0 Urea nitroge n [Mass/volume] in Serum or Plasma GLUCOSE SER 102 mg/dL 65-99 H Glucose [Mass/volume] in Serum or Plasma Plan of Care Type Date Detail Appointment 12:30 PM Murtaza hung MD, [facility], [address], [place], [address], Pending order CMP Pending order CBC with Differe ntial Pending order C- reactive prot ein Pending order Continue oral an tibiotics Procedures Code Procedure Name Date Entry Date G2 Complex E&M visit add-on (G2) CPT-44415 CMP [id number] CBC with Differential 2024 CPT-95530 C- reactive protein CPT-Cooral Continue oral antibiotics [...]
--- OUTSIDE RECORDS SUMMARY | 2025-05-29 10:01 | XMS_ITS | Clinical Summary ---
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 Active QUEtiapine (SEROquel) 200 MG tablet Take 1 tablet (200 mg total) by mouth 2 (two) times daily. 4 Active tiZANidine (ZANAFLEX) 4 MG tablet Take 1 tablet (4 mg total) by mouth every 8 (eight) hours as needed for muscle spasms. 4 Active metoprolol succinate (TOPROL-XL) 50 MG 24 hr tablet Take 1 tablet (50 mg total) by mouth nightly. 5 Active furosemide (LASIX) 20 MG tablet Take 1 tablet (20 mg total) by mouth daily as needed (for Edema/Swellin g). 5 Active atorvastatin (LIPITOR) 40 MG tablet Take 1 tablet (40 mg total) by mouth nightly. Active metFORMIN (GLUCOPHAGE-XR ) 500 MG 24 hr tablet Take 1 tablet (500 mg total) by mouth daily with dinner. Active cefTRIAXone (ROCEPHIN) 1 g in NS 50 mL SHANELLE IVPB Infuse 1 g into a venous catheter daily. 5 05/01/20 25 Discontinue d(Stop Taking at Discharge) DAPTOmycin (CUBICIN) IV Infuse 350 mg into a venous catheter daily. 5 05/01/20 25 Discontinue d(Stop Taking at Discharge) metroNIDAZOLE (FLAGYL) 500 MG tablet Take 1 tablet (500 mg total) by mouth 3 (three) times daily for 29 days. 87 tablet 5 05/25/20 25 linezolid (ZYVOX) 600 mg tablet Take 1 tablet (600 mg total) by mouth 2 (two) times daily for 21 days. 42 tablet 5 05/22/20 25 amoxicillin-cl avulanate (AUGMENTIN) 875-125 mg per tablet Take 1 tablet by mouth 2 (two) times daily with breakfast and dinner for 21 days. 42 tablet 5 05/22/20 25 Active Problems Problem Noted Date Diagnosed Date Sepsis 04/24/2025 Diverticulitis of colon with perforation 025 Anxiety 04/06/2025 Depression 04/06/2025 Heart failure 04/06/2025 Coronary artery disease invo lving autologous artery coronary bypass graft 03/12/2025 Diabetes mellitus, type 2 03/12/2025 Current every day smoker 03/12/2025 Hyperlipidemia 03/12/2025 Osteoarthritis 06/21/2017 Resolved Problems Problem Noted Date Diagnosed Date Resolved Date At risk of disease 04/06/2025 Coronary artery disease 04/06/2025 0809/2024 Encounters Date Type Department Care Team Description 04/24/2025 3:47 PM EDT - 05/01/2025 6:36 PM EDT Hospital Encounter [facility] 5A Neuro Telemetry Unit [address] [place] [address] Claude Arriaga MD Elliott, Jayden, PA-C Lewis, Paige, MD Ali, Amjad, MD Elbita, Omar, MD Elsallabi, Osama, MD Sepsis, due to unspecified organism, unspecified whether acute organ dysfunction present (HCC) (Primary Dx) Discharge Disposition: Home or Self Care 04/24/2025 Travel 04/11/2025 11:59 PM EDT Anesthesia Event [facility] Operating Room [address] [place] [address] Joaquim Harrell MD 04/09/2025 7:46 AM EDT Anesthesia Event [facility] Operating Room [address] [place] [phone] Myranda Angeles CRNA Graff, Wayne B, MD 04/09/2025 7:30 AM EDT - 04/09/2025 11:27 AM EDT Surgery [facility] Operating Room [address] [place] [address] Chun Lockhart MD (OPEN LOW ANTERIOR RESECTION WITH TAKEDOWN OF COLOVESICAL FISTULA DIVERTING LOOP ILEOSTOMY VENTRAL HERNIA REPAIR AND CYSTOSCOPY AND STENTS) EXPLANTS OF MESH, REDO LAR,EX LAP LYSIS OF ADHESIONS 04/09/2025 5:27 AM EDT - 04/16/2025 10:45 AM EDT Hospital Encounter [facility] Cardiothoracic Vascular Unit [address] [place] [phone] Chun Lockhart MD Zohary, Yasser, MD Elsallabi, Osama, MD Cantrell, David M, MD Vesicointestinal fistula Discharge Disposition: Left Against Medical Advice 04/09/2025 Travel 03/12/2025 3:31 PM EDT - 03/12/2025 11:59 PM EDT Hospital Encounter [facility] Diagnostic Imaging [address] [place] [phone] Chun Lockhart MD Preop testing Discharge Disposition: Home or Self Care 03/12/2025 1:43 PM EDT - 03/12/2025 3:30 PM EDT Hospital Encounter [facility] Preadmission Testing [address] [place] [id number] Chun Lockhart MD Preop testing (Primary Dx); Coronary artery disease involving autologous artery coronary bypass graft; Diabetes mellitus, type 2 (HCC); Smoker; Hyperlipidemia Discharge Disposition: Home or Self Care 03/12/2025 Travel from Last 3 Months Social History Tobacco Use Types Packs/Day Years Used Date Smoking Tobacco: Every Day Cigarettes Smokeless Tobacco: Never Alcohol Use Standard Drinks/Week Comments Never 0 (1 standard drink = 0.6 oz pur e alcohol) Utilities Answer Date Recorded In the past 12 months, has t he [employer] oil, or water [employer] threatened to shut off services in your [...] Do you speak a language other than Danish at ho me? No 04/24/2025 Do you want help with [...] on file Sexual Orientation Not on file Last Filed Vital Signs Vital Sign Reading [...] Mass Index 25.55 04/24/2025 3:44 PM EDT Plan of Treatment Health Maintenance Due Date Last Done Comments CT Colonography 1959 Colonoscopy 1959 Colorectal Cancer Screening 1959 Diabetic Kidney Health Evaluation (KED) 1959 FOBT/FIT 1959 Fit-DNA (Cologuard) 1959 Sigmoidoscopy 1959 Diabetic Eye Exam 1969 Hepatitis C Screening 1977 DTAP/TDAP/TD VACCINES (1 - Tdap) 1978 Pneumococcal 50+ years (1 of 2 - PCV) 1978 Shingles Vaccine (Zoster) (1 of 2) 2009 Respiratory Syncytial Virus (RSV) Adult or (1 - Risk 60-74 years 1-dose series) 2019 Falls Risk Screening 09/06/2024 Medicare Initial AWV G0438 02/05/2025 COVID-19 VACCINE (1 - season) 2025 Influenza Vaccine (#1) 2025 Hemoglobin A1C 09/12/2025 03/12/2025 Tobacco Cessation Counseling and Screening (12+) 04/09/2026 04/09/2025 Abdominal Aortic Aneurysm (AAA) Screen Completed , 04/11/2025 Procedures Procedure Name Priority Date/Time Associated Diagnosis [...] AM EDT NOVA GLUCOSE POC Routine 04/24/2025 8:2 6 PM EDT XR CHEST AP PORTABLE STAT 04/24/2025 4:19 PM EDT LACTIC ACID WITH REFLEX STAT 04/24/2025 4:07 PM EDT COMPREHENSIVE METABOLIC PANEL STAT 04/24/2025 4:07 PM EDT CBC W/ AUTO DIFF STAT 04/24/2025 4:07 PM EDT BLOOD CULTURE STAT 04/24/2025 4:07 PM EDT BLOOD CULTURE STAT 04/24/2025 4:07 PM EDT FS_MODEL_IP_ECG 12-LEAD Routine 04/24/2025 3:54 PM EDT FS_SJH_MODEL CRITICAL CARE Routine 04/24/2025 3:42 PM EDT EKG-SCANNED 04/24/2025 CREATINE KINASE (CK) Add-On 04/16/2025 4:21 AM EDT CBC W/ AUTO DIFF Routine 04/16/2025 4:21 AM EDT BASIC METABOLIC PANEL [...] POC Routine 04/13/2025 11:1 4 AM EDT BASIC METABOLIC PANEL Routine 04/13/2025 7:08 AM EDT CBC HEMOGRAM (SJ-BKR) Routine 04/13/2025 7:08 AM EDT NOVA GLUCOSE POC Routine 04/12/2025 9:48 PM EDT NOVA GLUCOSE POC Routine 04/12/2025 4:49 PM EDT LACTIC ACID WITH REFLEX Routine 04/12/2025 3:50 PM EDT NOVA GLUCOSE POC Routine 04/12/2025 11:5 3 AM EDT NOVA GLUCOSE POC Routine 04/12/2025 8:27 AM EDT MANUAL DIFFERENTIAL Routine 04/12/2025 4 :06 AM EDT COMPREHENSIVE METABOLIC PANEL Routine 04/12/2025 4:06 AM EDT CBC W/MANUAL DIFF (SJ-BKR) Routine 04/12/2025 4:06 AM EDT NOVA GLUCOSE POC Routine 04/11/2025 11:0 8 PM EDT NOVA GLUCOSE POC Routine 04/11/2025 6:16 PM EDT MRSA SCREEN KWASI 04/11/2025 4:[address] DRAINAGE RETROPERITONEAL W GUIDANCE Routine 04/11/2025 4:28 PM EDT SPIN/CONCENTRATION CHARGE Routine 04/11/2025 4:26 PM EDT Vesicointestinal fistula [facility] MICRO REFERENCE LAB Routine 04/11/2025 4:26 PM [...] GLUCOSE POC Routine 04/11/2025 5:24 AM EDT MANUAL DIFFERENTIAL Routine 04/11/2025 3 :26 AM EDT COMPREHENSIVE METABOLIC PANEL Routine 04/11/2025 3:26 AM EDT CBC W/MANUAL DIFF (SJ-BKR) Routine 04/11/2025 3:26 AM EDT NOVA GLUCOSE POC Routine 04/10/2025 11:2 8 PM EDT NOVA GLUCOSE POC Routine 04/10/2025 6:15 PM EDT NOVA GLUCOSE POC Routine 04/10/2025 12:5 8 PM EDT NOVA GLUCOSE POC Routine 04/10/2025 5:39 AM EDT BASIC METABOLIC PANEL Routine 04/10/2025 3:22 AM EDT MAGNESIUM Routine 04/10/2025 3:22 AM EDT COMPREHENSIVE METABOLIC PANEL Routine 04/10/2025 3:22 AM EDT CBC W/ AUTO DIFF Routine 04/10/2025 3:22 AM EDT XR CHEST AP PORTABLE KWASI 04/09/2025 8:43 PM EDT PHOSPHORUS STAT 04/09/2025 8:18 PM EDT MAGNESIUM STAT 04/09/2025 8:18 PM EDT LACTIC ACID WITH REFLEX STAT 04/09/2025 8:18 PM EDT COMPREHENSIVE METABOLIC PANEL STAT 04/09/2025 8:18 PM EDT CBC W/ AUTO DIFF STAT 04/09/2025 8:18 PM EDT CALCIUM, IONIZED STAT 04/09/2025 8:18 PM EDT NOVA GLUCOSE POC Routine 04/09/2025 11:2 6 AM EDT TISSUE EXAM ([place]) AP Routine 04/09/2025 9 :50 AM EDT Vesicointestinal fistula ANESTHESIA INTUBATION Routine 04/09/2025 8:12 AM EDT HC ARTERIAL CATH SAMP/MNTR Routine 04/09/2025 8:01 AM EDT IA CYSTO W/INSERT URETERAL STENT 04/09/2025 7:46 AM EDT Vesicointestinal fistula Case Notes IN 0530 , 3h (R), PASS, TAP BLOCK, PA REQUESTED, DR CANCINO DOING STENTS IA COLECTOMY PRTL W/COLOPROCTOSTOMY 04/09/2025 7:46 AM EDT Vesicointestinal fistula Case Notes IN 0530 , 3h (R), PASS, TAP BLOCK, PA REQUESTED, DR CANCINO DOING STENTS HC TAP BLOCK BILATERAL (BLK RM) Routine 04/09/2025 7:20 AM EDT TYPE AND SCREEN ([place] BKR) STAT 04/09/2025 7:00 AM EDT POCT-POTASSIUM Routine 04/09/2025 6:49 AM EDT ISTAT GLUCOSE POC Routine 04/09/2025 6:4 9 AM EDT EKG-SCANNED 04/09/2025 XR CHEST PA AND LATERAL Routine 03/12/2025 3:40 PM EDT Preop testing FS_MODEL_IP_ECG 12-LEAD Routine 03/12/2025 3:15 PM EDT Preop testing HEMOGLOBIN A1C STAT 03/12/2025 2:45 PM EDT Preop testing COMPREHENSIVE METABOLIC PANEL STAT 03/12/2025 2:45 PM EDT Preop testing CBC W/ AUTO DIFF STAT 03/12/2025 2:45 PM EDT Preop testing from Last 3 Months Results * (ABNORMAL) Glucose, Nova Meter (05/01/2025 3:23 PM EDT) Only the most recent of48 resultswithin the time period is included. POC-GLUCOSE 133(H) 70 - 110 mg/dL 05/01/2025 3:25 PM EDT [facility] Comment: In the event of poor peripheral blood flow, venous or arterial blood should be used due to the potential of erroneous results. Notified Nurse RBV Burglar Alarm Mechanic [id number] 05/01/2025 3:25 PM EDT [facility] Blood WHOLE BLOOD / Unknown 05/01/2025 3:23 PM EDT 05/01/2025 3:25 PM EDT Narrative [facility] - 05/01/2025 3:25 PM EDT Burglar Alarm Mechanic ID is - [id number] Manjit Naranjo MD POINT OF CARE TEST ORDERABLES Fi nal Result [facility] [address] [phone] * Lactic acid (SJ) (04/28/2025 6:16 AM EDT) Only the most recent of2 resultswithin the time period is included. Lactic Acid Level (mmol/L) 1.0 0.5 - 2.2 mmol/L 04/28/2025 7:00 AM EDT [facility] Blood CENTRAL VENOUS CATHETER / Unknown Medicare Port / Unknown 04/28/2025 6:16 AM EDT 04/28/2025 6:30 AM EDT us Marixa Pennington TOP STITCHER LAB BLOOD ORDERABLES Final Re sult [facility] [address] [phone] * (ABNORMAL) CBC with automated diff (04/26/2025 3:38 AM EDT) Only the most recent of7 resultswithin the time period is included. Pathologist [facility] WBC 8.6 4.2 - 9.1 K/ L 04/26/2025 4:26 AM EDT [facility] RBC 3.88(L) 4.63 - 6.08 M/ L 04/26/2025 4:26 AM EDT [facility] Hemoglobin 10.6(L) 13.7 - 17.5 GM/DL 04/26/2025 4:26 AM EDT [facility] Hematocrit 33.4(L) 40.1 - 51.0 % 04/26/2025 4:26 AM EDT [facility] MCV 86 79 - 92 fL 04/26/2025 4:26 AM EDT [facility] MCH 27.3 25.7 - 32.2 pg 04/26/2025 4:26 AM EDT [facility] MCHC 31.7(L) 32.3 - 36.5 GM/DL 04/26/2025 4:26 AM EDT [facility] RDW 14.6(H) 11.6 - 14.4 % 04/26/2025 4:26 AM EDT [facility] Platelets 425(H) 140 - 375 K/CU MM 04/26/2025 4:26 AM EDT [facility] MPV 8.2(L) 9.4 - 12.4 fL 04/26/2025 4:26 AM EDT [facility] % Neutros 66 34 - 68 % 04/26/2025 4:26 AM EDT [facility] % Lymphs 22 22 - 53 % 04/26/2025 4:26 AM EDT [facility] % Monos 9 5 - 12 % 04/26/2025 4:26 AM EDT [facility] % Eos 2 1 - 7 % 04/26/2025 4:26 AM EDT [facility] % Baso 1 0 - 1 % 04/26/2025 4:26 AM EDT [facility] NRBC Absolute <0.01 0 - 0.012 K/ul 04/26/2025 4:26 AM EDT [facility] # Neutros 5.62(H) 1.78 - 5.38 K/ L 04/26/2025 4:26 AM EDT [facility] # Lymphs 1.90 1.32 - 3.57 K/ L 04/26/2025 4:26 AM EDT [facility] # Monos 0.73 0.30 - 0.82 K/ L 04/26/2025 4:26 AM EDT [facility] # Eos 0.21 0.04 - 0.54 K/ L 04/26/2025 4:26 AM EDT [facility] # Baso 0.09(H) 0.01 - 0.08 K/ L 04/26/2025 4:26 AM EDT [facility] Immature Granulocytes-Re lative 0.50(H) 0.01 - 0.43 % 04/26/2025 4:26 AM EDT [facility] # IG 0.04(H) 0.00 - 0.03 K/uL 04/26/2025 4:26 AM EDT [facility] Blood Venipuncture / Unknown 04/26/2025 3:38 AM EDT 04/26/2025 4:18 AM EDT Narrative [facility] - 04/26/2025 4:26 AM EDT [...] MD LAB BLOOD ORDERABLES Final Resul t [facility] [address] [phone] * (ABNORMAL) Basic Metabolic Panel (04/26/2025 3:38 AM EDT) Only the most recent of6 resultswithin the time period is included. Sodium 139 136 - 145 meq/L 04/26/2025 4:49 AM EDT [facility] Potassium 4.2 3.4 - 5.1 meq/L 04/26/2025 4:49 AM EDT [facility] CO2 20(L) 22 - 29 meq/L 04/26/2025 4:49 AM EDT [facility] Chloride 109 98 - 112 meq/L 04/26/2025 4:49 AM EDT [facility] Glucose 102 82 - 115 mg/dL 04/26/2025 4:49 AM EDT [facility] BUN 10.7 8.4 - 25.7 mg/dL 04/26/2025 4:49 AM EDT [facility] Creatinine 0.88 0.72 - 1.25 mg/dL 04/26/2025 4:49 AM EDT [facility] BUN/Creatinine 12 8 - 20 04/26/2025 4:49 AM EDT [facility] Calcium 8.4 8.4 - 10.2 mg/dL 04/26/2025 4:49 AM EDT [facility] Anion Gap 14(H) 4 - 12 04/26/2025 4:49 AM EDT [facility] eGFR (mL/min/1.73m2) 95 >=60 mL/min/1.7 3m2 04/26/2025 4:49 AM EDT [facility] Osmolality Calc 277.0 mOsm/kg 4:49 AM EDT [facility] Blood Venipuncture / Unknown 04/26/2025 3:38 AM EDT 04/26/2025 4:20 AM EDT Narrative [facility] - 04/26/2025 4:49 AM EDT Specimen slightly hemolyzed us Samantha Manzo MD LAB BLOOD ORDERABLES Final Resul t [facility] [address] [phone] * (ABNORMAL) CBC - Hemogram (SJ-BKR) (04/25/2025 7:16 AM EDT) Only the most recent of3 resultswithin the time period is included. WBC 9.1 4.2 - 9.1 K/ L 04/25/2025 8:31 AM EDT [facility] RBC 3.57(L) 4.63 - 6.08 M/ L 04/25/2025 8:31 AM EDT [facility] Hemoglobin 10.0(L) 13.7 - 17.5 GM/DL 04/25/2025 8:31 AM EDT [facility] Hematocrit 31.6(L) 40.1 - 51.0 % 04/25/2025 8:31 AM EDT [facility] MCV 89 79 - 92 fL 04/25/2025 8:31 AM EDT [facility] MCH 28.0 25.7 - 32.2 pg 04/25/2025 8:31 AM EDT [facility] MCHC 31.6(L) 32.3 - 36.5 GM/DL 04/25/2025 8:31 AM EDT [facility] RDW 14.7(H) 11.6 - 14.4 % 04/25/2025 8:31 AM EDT [facility] Platelets 420(H) 140 - 375 K/CU MM 04/25/2025 8:31 AM EDT [facility] MPV 8.5(L) 9.4 - 12.4 fL 04/25/2025 8:31 AM EDT [facility] Blood Venipuncture / Unknown 04/25/2025 7:16 AM EDT 04/25/2025 8:08 AM EDT Te ROWLAND-C LAB BLOOD ORDERABLES Final R esult Performing Organization Address City/[facility] Co de Phone Number [facility] [address] [phone] * (ABNORMAL) C-Reactive Protein (04/25/2025 4:21 AM EDT) CRP 6.6(H) 0.0 - 5.0 mg/L 04/25/2025 4:59 AM EDT [facility] Blood Venipuncture / Unknown 04/25/2025 4:21 AM EDT 04/25/2025 4:29 AM EDT Te [place]-C LAB BLOOD ORDERABLES Final R esult Performing Organization Address [facility] Co de Phone Number [facility] [address] [phone] * (ABNORMAL) Comprehensive metabolic panel (04/25/2025 4:21 AM EDT) Only the most recent of7 resultswithin the time period is included. Sodium 140 136 - 145 meq/L 04/25/2025 5:08 AM EDT [facility] Potassium 4.6 3.4 - 5.1 meq/L 04/25/2025 5:08 AM EDT [facility] Chloride 112 98 - 112 meq/L 04/25/2025 5:08 AM EDT [facility] CO2 21(L) 22 - 29 meq/L 04/25/2025 5:08 AM EDT [facility] Calcium 8.3(L) 8.4 - 10.2 mg/dL 04/25/2025 5:08 AM EDT [facility] Glucose 98 82 - 115 mg/dL 04/25/2025 5:08 AM EDT [facility] BUN 9.3 8.4 - 25.7 [...] 12 4 - 12 04/25/2025 5:08 AM [facility] A/G Ratio 0.7 0.7 - 1.9 04/25/2025 5:08 AM [facility] Osmolality Calc 278.2 mOsm/kg 5:08 AM EDT [facility] Blood Venipuncture / Unknown 04/25/2025 4:21 AM EDT 04/25/2025 4:29 AM EDT Te Hope PA-C LAB BLOOD ORDERABLES Final R esult [facility] [address] [place] [id number] [phone] * XR chest AP portable (04/24/2025 4:19 PM EDT) Only the most recent of3 resultswithin the time period is included. Anatomical Region Laterality Modality Chest X-Ray 04/24/2025 4:40 PM EDT Impressions 04/24/2025 4:54 PM EDT No acute cardiopulmonary process. Images reviewed, interpreted, and dictated by Dr. Davi Perez. Transcribed by Mary Beth Ram Narrative 04/24/2025 [...] DIAGNOSTIC IMAGING ORDERA BLES Final Result * (ABNORMAL) Lactic Acid with reflex (SJ) (04/24/2025 4:07 PM EDT) Only the most recent of3 resultswithin the time period is included. Lactic Acid Level (mmol/L) 2.4(HH) 0.5 - 2.2 mmol/L 04/24/2025 4:46 PM EDT [facility] Blood Venipuncture / Unknown 04/24/2025 4:07 PM EDT 04/24/2025 4:14 PM EDT Marixa Pennington APRN LAB BLOOD ORDERABLES Final Re sult Performing Organization Address [facility] Co de Phone Number [facility] [address] [phone] * Blood Culture (04/24/2025 4:07 PM EDT) Only the most recent of2 resultswithin the time period is included. Pathologist [facility] Result No growth in 5 days 04/29/2025 5:01 PM EDT [facility] Blood Venipuncture / Unknown 04/24/2025 4:07 PM EDT 04/24/2025 4:14 PM EDT Marixa Pennington APRN MICROBIOLOGY - GENERAL ORDERA BLES Final Result Performing Organization Address [facility] de Phone Number [facility] [address] [phone] * ECG 12 lead (04/24/2025 3:54 PM EDT) Only the most recent of2 resultswithin the time period is included. VENTRICULAR RATE EKG/MIN 104 BPM GE MUSE ATRIAL RATE (MCT) 104 BPM GE MUSE IA Interval 129 ms GE MUSE QRS-INTERVAL (MSEC) 79 ms GE MUSE QT Interval 321 ms GE MUSE QTC Interval 422 ms GE MUSE P Sheridan 72 degrees GE MUSE R AXIS (MCT) 78 degrees GE MUSE T Wave Sher[place] 59 degrees GE MUSE Willow Diagnosis Sinus tachycardia Nonspecific T wave abnormality Abnormal ECG No previous ECGs available Confirmed by Antonio Wheeler ([id number]) on 04/25/2025 1:31:49 PM GE MUSE 04/24/2025 3:54 PM EDT 04/25/2025 1:31 PM EDT us Marixa Pennington TOP STITCHER ECG ORDERABLES Final Result GE VENESSA * Critical Care (04/24/2025 3:42 PM EDT) [...] ORDER AIDAN Final Result * EKG-SCANNED (04/24/2025) Only the most recent of2 resultswithin the time period is included. Narrative 04/24/2025 Ordered by an unspecified provider. us Default Scanning Provider SCAN ORDERS Final Result * (ABNORMAL) Creatine Kinase (CK) (04/16/2025 4:21 AM EDT) Total CK 22(L) 30 - 200 U/L 04/16/2025 11:11 AM EDT [facility] Blood ENTIRE RIGHT UPPER ARM / Unknown Venipuncture / Unknown 04/16/2025 4:21 AM EDT 04/16/2025 4:45 AM EDT us Murtaza Amato MD LAB BLOOD ORDERABLES Final Re sult [facility] [address] [place] [id number] [phone] * CT ABDOMEN/PELVIS WITH IV CONTRAST Standard Protocol (04/15/2025 4:22 PM EDT) Only the most recent of2 resultswithin the time period is included. Anatomical Region Laterality Modality Abdomen, Pelvis Computed [...] dictated by Gunnar De La Paz MD Chun Lockhart MD IMG CT ORDERABLES Final Resu [...] dictated by Gunnar De La Paz MD Chun Lockhart MD IMG CT ORDERABLES Final Resu lt * (ABNORMAL) CBC w Manual Diff (SJ-BKR) (04/12/2025 4:06 AM EDT) Only the most recent of2 resultswithin the time period is included. WBC 12.7(H) 4.2 - 9.1 K/ L 04/12/2025 4:24 AM EDT [facility] RBC 3.31(L) 4.63 - 6.08 M/ L 04/12/2025 4:24 AM EDT [facility] Hemoglobin 9.2(L) 13.7 - 17.5 GM/DL 04/12/2025 4:24 AM EDT [facility] Hematocrit 28.9(L) 40.1 - 51.0 % 04/12/2025 4:24 AM EDT [facility] MCV 87 79 - 92 fL 04/12/2025 4:24 AM EDT [facility] MCH 27.8 25.7 - 32.2 pg 04/12/2025 4:24 AM EDT [facility] MCHC 31.8(L) 32.3 - 36.5 GM/DL 04/12/2025 4:24 AM EDT [facility] RDW 14.7(H) 11.6 - 14.4 % 04/12/2025 4:24 AM EDT [facility] Platelets 225 140 - 375 K/CU MM 04/12/2025 4:24 AM EDT [facility] MPV 8.8(L) 9.4 - 12.4 fL 04/12/2025 4:24 AM EDT [facility] Blood ENTIRE RIGHT UPPER ARM / Unknown Venipuncture / Unknown 04/12/2025 4:06 AM EDT 04/12/2025 4:11 AM EDT Narrative [facility] - 04/12/2025 4:24 AM EDT Manual differentials can only be ordered once in a 24 hour time period. Please order CBC with Auto Diff if needed. Note: reference ranges were changed on 10/05/2023. us Murtaza Amato MD LAB BLOOD ORDERABLES Final Re sult [facility] [address] [phone] * (ABNORMAL) Manual Differential (04/12/2025 4:06 AM EDT) Only the most recent of2 resultswithin the time period is included. Total Counted 100 04/12/2025 5:40 AM EDT [facility] % Neutros (manual) 83(H) 50 - 65 % 04/12/2025 5:40 AM EDT [facility] % Lymphs (manual) 5(L) 24 - 44 % 04/12/2025 5:40 AM EDT [facility] % Monos (manual) 10(H) 4 - 5 % 04/12/20 25 5:40 AM EDT [facility] % Baso (manual) 1 0 - 1 % 5:40 AM EDT [facility] % Metamyelo (manual) 1 0 - 1 % 04/12/2025 5:40 AM EDT [facility] RBC Morphology abnormal(A) Normal 5:40 AM EDT [facility] Platelet Estimate Adequate Adequate 04/12/2025 5:40 AM EDT [facility] Anisocytosis 1+ 04/12/2025 5:40 AM EDT [facility] Hypochromia 1+ 04/12/2025 5:40 AM EDT [facility] Ovalocytes 1+ 04/12/2025 5:40 AM EDT [facility] ANC# 10.54 K/ L 04/12/2025 5:40 AM EDT [facility] Blood ENTIRE RIGHT UPPER ARM / Unknown Venipuncture / Unknown 04/12/2025 4:06 AM EDT 04/12/2025 4:11 AM EDT us Murtaza Amato MD LAB BLOOD ORDERABLES Final Re sult Performing Organization Address City/[facility]/ZIP Co de Phone Number [facility] [address] [phone] * MRSA Screen (04/11/2025 4:49 PM EDT) Pathologist [facility] MRSA by PCR [facility] MRSA Not Detected by PCR MRSA Not Detected by PCR DEVICE [id number] 04/11/2025 7:22 PM EDT [facility] Nasal BOTH ANTERIOR NARES / Unknown 04/11/2025 4:49 PM EDT 04/11/2025 5:03 PM EDT us Murtaza Amato MD MICROBIOLOGY - GENERAL ORDERA BLES Final Result Performing Organization Address [facility] [facility] Co de Phone Number [facility] [address] [phone] * CT DRAINAGE PERITONEAL/RETROPERITONEAL W GUIDANCE (04/11/2025 [...] . ATTENDING RADIOLOGIST: Dr. Gaviria. PHYSICIAN DIRECTOR GRAPHICS: Jean Pierre Hughes PA-C. PROCEDURE: After informed consent was obtained and a time-out was performed, the patient was prepped and draped in the usual sterile fashion over the left groin. Utilizing local anesthesia and sterile technique with a catheter access needle, access to the fluid collection was obtained under direct CT guidance. An Amplatz wire was placed. Serial dilatation was performed. A 10 Kittitian pigtail catheter was placed looped in the [...] . ATTENDING RADIOLOGIST: Dr. Gaviria. PHYSICIAN DIRECTOR GRAPHICS: Jean Pierre Hughes PA-C. PROCEDURE: After informed consent was obtained and a time-out was performed, the patient was prepped and draped in the usual sterile fashion over the left groin. Utilizing local anesthesia and sterile technique with a catheter access needle, access to the fluid collection was obtained under direct CT guidance. An Amplatz wire was placed. Serial dilatation was performed. A 10 Kittitian pigtail catheter was placed looped in the [...] Jean Pierre Hughes PA-C Kulwinder Donovan MD [facility] [place] ORDERABLES Final Result * Micro Reference Lab (04/11/2025 4:26 PM EDT) Scan Result 04/27/2025 12:50 PM EDT [facility] NON-INTERFACED REFERENCE LAB Body Fluid RETROPERITONEAL COMPARTMENT STRUCTURE / Unknown 04/11/2025 4:26 PM EDT 04/11/2025 4:52 PM EDT us Kulwinder Donovan MD MICROBIOLOGY - GENERAL ORDERABLE S Final Result [facility] NON-INTERFACED REFERENCE LAB [facility] * SPIN/CONCENTRATION CHARGE (04/11/2025 4:26 PM EDT) Concentration charged Done 04/23/2025 10:48 AM EDT [facility] Body Fluid RETROPERITONEAL COMPARTMENT STRUCTURE / Unknown 04/11/2025 4:26 PM EDT 04/11/2025 4:52 PM EDT us Kulwinder Donovan MD MICROBIOLOGY - GENERAL ORDERABLE S Final Result Performing Organization Address [facility] Co de Phone Number [facility] [address] [phone] * (ABNORMAL) Anaerobic Culture (04/11/2025 4:26 PM EDT) Result Parabacteroides distasonis(A) 04/16/2025 7:19 AM EDT [facility] Body Fluid RETROPERITONEAL COMPARTMENT STRUCTURE / Unknown 04/11/2025 4:26 PM EDT 04/11/2025 4:52 PM EDT us Kulwinder Donovan MD MICROBIOLOGY - GENERAL ORDERABLE S Final Result Performing Organization Address [facility] Co de Phone Number [facility] [address] [place] [address], [facility] [phone] * (ABNORMAL) Body Fluid Culture + Gram Stain (04/11/2025 4:26 PM EDT) Result Light Growth Enterococcus faecium(A) 04/16/2025 6:53 AM EDT [facility] Comment:Sent to reference la b for sensitivity testing. Result Light Growth Klebsiella pneumoniae(A) 04/16/2025 6:53 AM EDT [facility] Result Light Growth Clostridium tertium(A) 04/16/2025 6:53 AM EDT [facility] Comment:No susceptibility pe rformed Gram Stain Result Moderate gram positive cocci in pairs 04/16/2025 6:53 AM EDT [facility] Gram Stain Result Many WBCs 025 6:53 AM EDT [facility] Body Fluid RETROPERITONEAL COMPARTMENT STRUCTURE [...] MICROBIOLOGY - GENERAL ORDERABLE S Final Result [facility] [address] [phone] * Magnesium (04/10/2025 3:22 AM EDT) Only the most recent of2 resultswithin the time period is included. Magnesium 1.7 1.6 - 2.6 mg/dL 04/10/2025 4:06 AM EDT [facility] Blood Venipuncture / Unknown 04/10/2025 3:22 AM EDT 04/10/2025 3:32 AM EDT Jah Long DO LAB BLOOD ORDERABLES Final Re sult Performing Organization Address [facility] Co de Phone Number [facility] [address] [phone] * (ABNORMAL) CALCIUM Ionized (04/09/2025 8:18 PM EDT) Pathologist [facility] Calcium Ionized 1.10(L) 1.12 - 1.32 mmol/L 04/09/2025 8:30 PM EDT [facility] Blood Venipuncture / Unknown 04/09/2025 8:18 PM EDT 04/09/2025 8:24 PM EDT Wesley Goncalves APRN LAB BLOOD ORDERABLES Final Res ult Performing Organization Address [facility] Co de Phone Number [facility] [address] [phone] * Phosphorus (04/09/2025 8:18 PM EDT) Pathologist [facility] Phosphorus 3.5 2.5 - 4.5 mg/dL 04/09/2025 8:48 PM EDT [facility] Blood Venipuncture / Unknown 04/09/2025 8:18 PM EDT 04/09/2025 8:24 PM EDT Wesley Goncalves APRN LAB BLOOD ORDERABLES Final Res ult Performing Organization Address [facility] Co de Phone Number [facility] [address] [phone] * Tissue Exam (04/09/2025 9:50 AM EDT) Pathologist [facility] AP RESULT See Note: PATHOLOGY AND [...] anvil or 2 end designated anastomotic donuts. Emergency Care Tech sections are submitted as follows: A1: Proximal [...] sections are submitted. HDM See other report ([id number]) Tissue COLON STRUCTURE / Unknown 04/09/2025 9:50 AM EDT Tissue specimen (specimen) MESH / Unknown 04/09/2025 10:49 AM EDT us Chun Lockhart MD PATHOLOGY/CYTOLOGY ORDERABLE S Final Result [facility] [address] [place] [address], [facility] * AN SINGLE LUMEN INTUBATION (04/09/2025 8:12 AM EDT) Myranda Fan CRNA - 04/09/2025 8:12 AM EDT Myranda [...] supine Prep: ChloraPrep Patient monitoring: heart rate, quality assurance monitor and continuous pulse ox Block type: [...] mg + Epi 1:200,000 on each side us Todd Okeefe MD ANESTHESIA ORDERABLES Berkley l Result * Type and Screen (04/09/2025 7:00 AM EDT) ABO/Rh B Positive 04/09/2025 6:07 AM EDT [facility] ([place]) Antibody Screen Negative 04/09/2025 6:07 AM EDT [facility] ([place] HISTCHK HIST CHECK PERFORMED 04/09/2025 6:07 AM EDT [facility] ([place] Blood Venipuncture / Unknown 04/09/2025 7:00 AM EDT 04/09/2025 7:11 AM EDT us Todd Okeefe MD [facility] BLOOD [facility] TEST ORDERA BLES Final Result [facility] - [facility] ([place]) [address] [place] [address], [facility] [phone] * Glucose, iSTAT Meter (04/09/2025 6:49 AM EDT) POC-GLUCOSE 101 70 - 105 mg/dL 04/09/2025 6:57 AM EDT [facility] Blood 04/09/2025 6:49 AM EDT 04/09/2025 6:57 AM EDT Narrative [facility] - 04/09/2025 6:57 AM EDT Burglar Alarm Mechanic ID is - [id number] us Chun Lockhart MD POINT OF CARE TEST ORDERABLE S Final Result Performing Organization Address City/[facility]/ZIP Co de Phone Number [facility] [address] [place] [address] * POC-Potassium (04/09/2025 6:49 AM EDT) POC Potassium 4.3 3.5 - 4.9 mmol/L 04/09/2025 6:57 AM EDT [facility] Blood 04/09/2025 6:49 AM EDT 04/09/2025 6:57 AM EDT Narrative [facility] - 04/09/2025 6:57 AM EDT Burglar Alarm Mechanic ID is - [id number] us Chun Lockhart MD POINT OF CARE TEST ORDERABLE S Final Result Performing Organization Address [facility]/ZIP Co de Phone Number [facility] [address] [place] [address] * X-ray chest PA and lateral (03/12/2025 3:40 PM EDT) Anatomical Region Laterality Modality Chest X-Ray 03/12/2025 3:59 PM EDT Impressions 03/12/2025 4:07 PM EDT No acute cardiopulmonary process . Continued follow-up is recommended . Images reviewed, interpreted, and dictated by Dr. Roro Gaviria. Transcribed by Eri Gaston PA-C. Narrative 03/12/2025 4:07 PM EDT TWO-VIEW CHEST 03/12/2025 3:31 PM HISTORY: Preoperative for fistulogram. COMPARISON: January 2018. FINDINGS: The heart is normal in size . The mediastinum is unremarkable . Diffuse interstitial changes are probably chronic . The lungs are otherwise clear . There is no pneumothorax . The osseous structures are unremarkable . The patient is status post median sternotomy. Procedure Note Sally Gaviria MD - 03/12/2025 TWO-VIEW CHEST 03/12/2025 3:31 PM HISTORY: Preoperative for fistulogram. COMPARISON: January 2018. FINDINGS: The heart is normal in size . The mediastinum is unremarkable . Diffuse interstitial changes are probably chronic . The lungs are otherwise clear . There is no pneumothorax . The osseous structures are unremarkable . The patient is status post median sternotomy. IMPRESSION: No acute cardiopulmonary process . Continued follow-up is recommended . Images reviewed, interpreted, and dictated by Dr. Roro Gaviria. Transcribed by Eri Gaston PA-C. Chun Lockhart MD IMG DIAGNOSTIC IMAGING ORDER AIDAN Final Result * (ABNORMAL) Hemoglobin A1c (03/12/2025 2:45 PM EDT) Hemoglobin A1C 6.1(H) 4.0 - 5.6 % 03/12/2025 3:06 PM EDT [facility] Comment: Hemoglobin A1C levels are related to mean glucose during the preceding 2-3 months. Less than 7% demonstrates glycemic control in diabetic patients. Hemoglobin AlC % Suggested Diagnosis > or = 6.5 Diabetic 5.7 - 6.4 Prediabetic <5.7 Non-diabetic eAVG Glucose 128.37(H) 70 - 126 mg/dL 03/12/2025 3:06 PM EDT [facility] Blood Venipuncture / Unknown 03/12/2025 2:45 PM EDT 03/12/2025 2:45 PM EDT us Chun Lockhart MD LAB BLOOD ORDERABLES Final R esult [facility] [address] [place] [id number], [facility] [phone] from Last 3 Months [facility] MCR ADV DUAL COMPLETE Advance Directives For more information, please contact: [phone] * Full Code (Latest Code Status on File) Date Activated Date Inactivated Comments 04/24/2025 4:33 PM 05/01/2025 7:36 PM * Full Code Date Activated Date Inactivated Comments 04/12/2025 6:48 AM 04/16/2025 11:57 AM Care Teams Rotoformer Backtender Relationship Specialty Start Date End Date Tay Vaca MD [address] [address] [place] [address] PCP - General Family Medicine 04/24/25
--- OUTSIDE RECORDS SUMMARY | 2025-05-29 10:02 | XMS_ITS | Clinical Summary ---
Author Organization [facility] Address [address] [place] [address] Care Team Providers Care Match Maker Name Role Phone Unavailable Primary Care Provider Unavailabl e Encounters Date Type Department Care Team Description 05/25/2025 Telephone [facility] Urology [address] [place] [address] Oumou Kaminski I, RN 05/18/2025 Telephone [facility] Urology [address], [address] [place] [address] Oumou Kaminski I, RN 05/15/2025 Telephone [facility] Urology [address] [place] [address] Oumou Kaminski I, RN 04/15/2025 Orders Only External Location [address] [place] [address] Provider, External 04/15/2025 Orders Only External Location [address] [place] [address] Provider, External 04/11/2025 Orders Only External Location [address] [place] [address] Provider, External from Last 3 Months Social History Tobacco Use Types Packs/Day Years Used Date Smoking Tobacco: Never Assessed Sex and Gender Information Value Date Recorded Sex Assigned at Not on file Legal Sex Male 6:55 PM EDT Gender Identity Not on file Sexual Orientation Not on file Plan of Treatment Health Maintenance Due Date Last Done Comments [facility]-Depression Screening 1959 [facility]-Infant/Child/Adol SDOH Screenings 1959 [facility]- SDOH Screenings 1977 [facility]-Adult SDOH Screenings 1977 [facility]-DTaP,Tdap,and Td Vaccine s (1 - Tdap) 1978 CT Colonography 02/23/2004 Colonoscopy 02/23/2004 FIT-DNA 02/23/2004 FIT 02/23/2004 FOBT 02/23/2004 Sigmoidoscopy 02/23/2004 [facility]-Colorectal Cancer Screening 02/23/2004 [facility]-Pneumococcal Vaccine: 50 + Years (1 of 1 - PCV) 2009 [facility]-Zoster Vaccines (1 of 2) 2009 NTL-[id number]-68 Vaccine (1 - 20 24-25 season) 2025 [facility]-Influenza Vaccine (#1) 2025 [facility]-RSV Vaccine: 60+ Years o r (1 - 1-dose 75+ series) 2034 HPV Vaccines Aged Out No longer eligi ble based on patient's age to complete this topic [facility]-HIB Vaccines Aged Out No longer e ligible based on patient's age to complete this topic [facility]-Hepatitis A Vaccines Aged Out No longer eligible based on patient's age to complete this topic [facility]-IPV Vaccines Aged Out No longer e ligible based on patient's age to complete this topic [facility]-Rotavirus Vaccines Aged Out No lo nger eligible based on patient's age to complete this topic Procedures Procedure Name Priority Date/Time Associated Diagnosis Comments CT MSK OUTSIDE IMAGES 04/15/2025 3:[address] MSK OUTSIDE IMAGES 04/15/2025 3:[address] ABDOMEN OUTSIDE IMAGES 04/11/2025 3:50 PM EDT from Last 3 Months Results * CT MSK OUTSIDE IMAGES (04/15/2025 3:47 PM EDT) Only the most recent of2 resultswithin the time period is included. Anatomical Region Laterality Modality Computed Tomogra phy 04/15/2025 3:47 PM EDT us External Provider IMG CT PROCEDURES Edited Resul t - Final * CT ABDOMEN OUTSIDE IMAGES (04/11/2025 3:50 PM EDT) Anatomical Region Laterality Modality Computed Tomogra phy 04/11/2025 3:50 PM EDT us External Provider IMG CT PROCEDURES Edited Resul t - Final from Last 3 Months Insurance [facility] MEDICARE
--- OUTSIDE RECORDS SUMMARY | 2025-05-29 10:02 | XMS_ITS | Encounter Summary ---
Author Organization [facility] Address [address] [place] [address] Care Team Providers Care Order Checker Packer Processer Name Role Phone Unavailable Primary Care Provider Unavailabl e Encounter Details Date Type Department Care Team (Late st Contact Info) Description 04/15/2025 Orders Only External Location [address] [place] [address] Provider, External Social History Tobacco Use Types Packs/Day Years [...] Diagnosis Comments CT MSK OUTSIDE IMAGES 04/15/2025 3:26 PM EDT documented in this encounter Results * CT MSK OUTSIDE IMAGES (04/15/2025 3:26 PM EDT) Anatomical Region Laterality Modality Computed Tomogra phy 04/15/2025 3:26 PM EDT us External Provider IMG CT PROCEDURES Edited Resul t - Final documented in this encounter Visit Diagnoses Not on filedocumented in this encounter
--- OUTSIDE RECORDS SUMMARY | 2025-05-29 10:02 | XMS_ITS | Encounter Summary ---
Author Organization Healthcare Address [address] [place] [address] Care Team Providers Care Medical Insurance Verifier Name Role Phone Unavailable Primary Care Provider Unavailabl e Encounter Details Date Type Department Care Team (Late st Contact Info) Description 05/18/2025 Telephone [facility] [address] [place] [address] Oumou Kaminski I, RN [facility] Social History Tobacco Use Types Packs/Day Years Used Date Smoking Tobacco: Never Assessed Sex and Gender Information Value Date Recorded Sex Assigned at Not on file Legal Sex Male 6:55 PM EDT Gender Identity Not on file Sexual Orientation Not on file documented as of this encounter Miscellaneous Notes * Telephone Encounter - Oumou Kaminski I, RN - 05/18/2025 10:17 AM EDT Called to schedule urology appointment; no answer, mailbox full. documented in this encounter Plan of Treatment Not on file documented as of this encounter Visit Diagnoses Not on filedocumented in this encounter
--- OUTSIDE RECORDS SUMMARY | 2025-05-29 10:02 | XMS_ITS ---
Author Organization Unknown TREATMENT PLAN Planned [facility] Start Date Provider Encounter for Check-up [id number] [facility]
--- OUTSIDE RECORDS SUMMARY | 2025-05-29 10:02 | XMS_ITS | Encounter Summary ---
Author Organization Healthcare Address [address] [place] [address] Care Team Providers Care Occupational Medicine Specialist Name Role Phone Unavailable Primary Care Provider Unavailabl e Encounter Details Date Type Department Care Team (Late st Contact Info) Description 04/11/2025 Orders Only External Location [address] [place] [address] Provider, External Social History Tobacco Use Types [...] Name Priority Date/Time Associated Diagnosis Comments CT ABDOMEN OUTSIDE IMAGES 04/11/2025 3:50 PM EDT documented in this encounter Results * CT ABDOMEN OUTSIDE IMAGES (04/11/2025 3:50 PM EDT) Anatomical Region Laterality Modality Computed Tomogra phy 04/11/2025 3:50 PM EDT us External Provider IMG CT PROCEDURES Edited Resul t - Final documented in this encounter Visit Diagnoses Not on filedocumented in this encounter
--- OUTSIDE RECORDS SUMMARY | 2025-05-29 10:02 | XMS_ITS | Referral Summary ---
Author Organization [employer] ([place], [place], [place], [place]) Address [address] [place] [address] Care Team Providers Care Management Planner Name Role Phone Tay Vaca MD Primary Care Provider + Encounters Date Type Department Care Team Description 04/24/2025 3:47 PM EDT - 05/01/2025 6:36 PM EDT Hospital Encounter [facility] 5A Neuro Telemetry Unit [address] [place] [phone] Claude Arriaga MD Elliott, Jayden, PA-C Lewis, Paige, MD Ali, Amjad, MD Elbita, Omar, MD Elsallabi, Osama, MD Sepsis, due to unspecified organism, unspecified whether acute organ dysfunction present (HCC) (Primary Dx) Discharge Disposition: Home or Self Care 04/24/2025 Travel 04/09/2025 5:27 AM EDT - 04/16/2025 10:45 AM EDT Hospital Encounter [facility] Cardiothoracic Vascular Unit [address] [place] [phone] Chun Lockhart MD Zohary, Yasser, MD Elsallabi, Osama, MD Cantrell, David M, MD Vesicointestinal fistula Discharge Disposition: Left Against Medical Advice 04/11/2025 11:59 PM EDT Anesthesia Event [facility] Operating Room 1 [place] [phone] Joaquim Harrell MD 04/09/2025 Travel 04/09/2025 7:30 AM EDT - 04/09/2025 11:27 AM EDT Surgery [facility] Operating Room 1 [place] [address] Chun Lockhart MD (OPEN LOW ANTERIOR RESECTION WITH TAKEDOWN OF COLOVESICAL FISTULA DIVERTING LOOP ILEOSTOMY VENTRAL HERNIA REPAIR AND CYSTOSCOPY AND STENTS) EXPLANTS OF MESH, REDO LAR,EX LAP LYSIS OF ADHESIONS 04/09/2025 7:46 AM EDT Anesthesia Event [facility] Operating Room 1 [place] [address] Myranda Angeles CRNA Graff, Wayne B, MD 03/12/2025 3:31 PM EDT - 03/12/2025 11:59 PM EDT Hospital Encounter [facility] Diagnostic Imaging 1 [place] [address] Chun Lockhart MD Preop testing Discharge Disposition: Home or Self Care 03/12/2025 Travel 03/12/2025 1:43 PM EDT - 03/12/2025 3:30 PM EDT Hospital Encounter [facility] Preadmission Testing 1 [place] [address] Chun Lockhart MD Preop testing (Primary Dx); Coronary artery disease involving autologous artery coronary bypass graft; Diabetes mellitus, type 2 (HCC); Smoker; Hyperlipidemia Discharge Disposition: Home or Self Care from Last 3 Months Allergies No known active allergies Medications aspirin [...] disease 04/06/2025 Coronary artery disease 04/06/2025 0809/2024 Social History Tobacco Use Types Packs/Day Years Used Date Smoking Tobacco: Every Day Cigarettes Smokeless Tobacco: Never Alcohol Use Standard Drinks/Week Comments Never 0 (1 standard drink = 0.6 oz pur e alcohol) Utilities Answer Date Recorded In the past 12 months, has t he [employer], [employer], [employer], or water [employer] threatened to shut off services in your [...] Do you speak a language other than Croatian at ho me? No 04/24/2025 Do you [...] 04/24/2025 3:44 PM EDT Plan of Treatment Not on file Procedures Procedure Name Priority Date/Time Associated Diagnosis [...] Routine 04/11/2025 4:26 PM EDT Vesicointestinal fistula [facility] MICRO REFERENCE LAB Routine 04/11/2025 4:26 [...] CATH SAMP/MNTR Routine 04/09/2025 8:01 AM EDT MO CYSTO W/INSERT URETERAL STENT 04/09/2025 7:46 AM EDT Vesicointestinal fistula Case Notes IN 30 , 3h (R), PASS, TAP BLOCK, PA REQUESTED, DR CANCINO DOING STENTS MO COLECTOMY PRTL W/COLOPROCTOSTOMY 04/09/2025 7:46 AM EDT Vesicointestinal fistula Case Notes IN 30 , 3h (R), PASS, TAP BLOCK, PA [...] of48 resultswithin the time period is included. [facility] [address] POC-GLUCOSE 133(H) 70 - 110 mg/dL 05/01/2025 3:25 PM EDT [facility] Comment: In the event of poor peripheral blood flow, venous or arterial blood should be used due to the potential of erroneous results. Notified Nurse RBV Green Chain Operator [phone] 05/01/2025 3:25 PM EDT [facility] Blood WHOLE BLOOD / Unknown 05/01/2025 3:23 PM EDT 05/01/2025 3:25 PM EDT Narrative [facility] - 05/01/2025 3:25 PM EDT Green Chain Operator ID is - [id number] us Manjit Naranjo MD POINT OF CARE TEST ORDERABLES Fi nal Result Performing Organization Address City/[facility]/ZIP Co de Phone Number [facility] [address] [phone] * Lactic acid (SJ) (04/28/2025 6:16 AM EDT) Only the most recent of2 resultswithin the time period is included. Pathologist [facility] Lactic Acid Level (mmol/L) 1.0 0.5 - 2.2 mmol/L 04/28/2025 7:00 AM EDT [facility] Blood CENTRAL VENOUS CATHETER / Unknown Medicare Port / Unknown 04/28/2025 6:16 AM EDT 04/28/2025 6:30 AM EDT us Marixa Pennington APRN LAB BLOOD ORDERABLES Final Re sult Performing Organization Address City/[facility]/ZIP Co de Phone Number [facility] [address] [phone] * (ABNORMAL) CBC with automated diff (04/26/2025 3:38 AM EDT) Only the most recent of7 resultswithin the time period is included. WBC 8.6 4.2 - 9.1 K/ L 04/26/2025 4:26 AM EDT [facility] RBC 3.88(L) 4.63 - 6.08 M/ L 04/26/2025 4:26 AM EDT [facility] Hemoglobin 10.6(L) 13.7 - 17.5 GM/DL 04/26/2025 4:26 AM EDT [facility] Hematocrit 33.4(L) 40.1 - 51.0 % 04/26/2025 4:26 AM EDT [facility] MCV 86 79 - 92 fL 04/26/2025 4:26 AM EDT [facility] MCH 27.3 25.7 - 32.2 pg 04/26/2025 4:26 AM EDT [facility] MCHC 31.7(L) 32.3 - 36.5 GM/DL 04/26/2025 4:26 AM EDT [facility] RDW 14.6(H) 11.6 - 14.4 % 04/26/2025 4:26 AM EDT [facility] Platelets 425(H) 140 - 375 K/CU MM 04/26/2025 4:26 AM EDT [facility] MPV 8.2(L) 9.4 - 12.4 fL 04/26/2025 4:26 AM EDT [facility] % Neutros 66 34 - 68 % 04/26/2025 4:26 AM EDT [facility] % Lymphs 22 22 - 53 % 04/26/2025 4:26 AM EDT [facility] % Monos 9 5 - 12 % 04/26/2025 4:26 AM EDT [facility] % Eos 2 1 - 7 % 04/26/2025 4:26 AM EDT [facility] % Baso 1 0 - 1 % 04/26/2025 4:26 AM EDT [facility] NRBC Absolute <0.01 0 - 0.012 K/ul 04/26/2025 4:26 AM EDT [facility] # Neutros 5.62(H) 1.78 - 5.38 K/ L 04/26/2025 4:26 AM EDT [facility] # Lymphs 1.90 1.32 - 3.57 K/ L 04/26/2025 4:26 AM EDT [facility] # Monos 0.73 0.30 - 0.82 K/ L 04/26/2025 4:26 AM EDT [facility] # Eos 0.21 0.04 - 0.54 K/ L 04/26/2025 4:26 AM EDT [facility] # Baso 0.09(H) 0.01 - 0.08 K/ L 04/26/2025 4:26 AM EDT [facility] Immature Granulocytes-Re lative 0.50(H) 0.01 - 0.43 % 04/26/2025 4:26 AM EDT [facility] # IG 0.04(H) 0.00 - 0.03 K/uL 04/26/2025 4:26 AM EDT [facility] Blood Venipuncture / Unknown 04/26/2025 3:38 AM EDT 04/26/2025 4:18 AM EDT Narrative [facility] - 04/26/2025 4:26 AM EDT [...] MD LAB BLOOD ORDERABLES Final Resul t [facility] [address] [phone] * (ABNORMAL) Basic Metabolic Panel (04/26/2025 3:38 AM EDT) Only the most recent of6 resultswithin the time period is included. Sodium 139 136 - 145 meq/L 04/26/2025 4:49 AM EDT [facility] Potassium 4.2 3.4 - 5.1 meq/L 04/26/2025 4:49 AM EDT [facility] CO2 20(L) 22 - 29 meq/L 04/26/2025 4:49 AM EDT [facility] Chloride 109 98 - 112 meq/L 04/26/2025 4:49 AM EDT [facility] Glucose 102 82 - 115 mg/dL 04/26/2025 4:49 AM EDT [facility] BUN 10.7 8.4 - 25.7 mg/dL 04/26/2025 4:49 AM EDT [facility] Creatinine 0.88 0.72 - 1.25 mg/dL 04/26/2025 4:49 AM EDT [facility] BUN/Creatinine 12 8 - 20 04/26/2025 4:49 AM EDT [facility] Calcium 8.4 8.4 - 10.2 mg/dL 04/26/2025 4:49 AM EDT [facility] Anion Gap 14(H) 4 - 12 04/26/2025 4:49 AM EDT [facility] eGFR (mL/min/1.73m2) 95 >=60 mL/min/1.7 3m2 04/26/2025 4:49 AM EDT [facility] Osmolality Calc 277.0 mOsm/kg 4:49 AM EDT [facility] Blood Venipuncture / Unknown 04/26/2025 3:38 AM EDT 04/26/2025 4:20 AM EDT Narrative [facility] - 04/26/2025 4:49 AM EDT Specimen slightly hemolyzed us Samantha Manzo MD LAB BLOOD ORDERABLES Final Resul t [facility] [address] [place] [address], [place] [phone] * (ABNORMAL) CBC - Hemogram (SJ-BKR) (04/25/2025 7:16 AM EDT) Only the most recent of3 resultswithin the time period is included. WBC 9.1 4.2 - 9.1 K/ L 04/25/2025 8:31 AM EDT [facility] RBC 3.57(L) 4.63 - 6.08 M/ L 04/25/2025 8:31 AM EDT [facility] Hemoglobin 10.0(L) 13.7 - 17.5 GM/DL 04/25/2025 8:31 AM EDT [facility] Hematocrit 31.6(L) 40.1 - 51.0 % 04/25/2025 8:31 AM EDT [facility] MCV 89 79 - 92 fL 04/25/2025 8:31 AM EDT [facility] MCH 28.0 25.7 - 32.2 pg 04/25/2025 8:31 AM EDT [facility] MCHC 31.6(L) 32.3 - 36.5 GM/DL 04/25/2025 8:31 AM EDT [facility] RDW 14.7(H) 11.6 - 14.4 % 04/25/2025 8:31 AM EDT [facility] Platelets 420(H) 140 - 375 K/CU MM 04/25/2025 8:31 AM EDT [facility] MPV 8.5(L) 9.4 - 12.4 fL 04/25/2025 8:31 AM EDT [facility] Blood Venipuncture / Unknown 04/25/2025 7:16 AM EDT 04/25/2025 8:08 AM EDT Te Hpoe PA-C LAB BLOOD ORDERABLES Final R esult [facility] [address] [phone] * (ABNORMAL) C-Reactive Protein (04/25/2025 4:21 AM EDT) CRP 6.6(H) 0.0 - 5.0 mg/L 04/25/2025 4:59 AM EDT [facility] Blood Venipuncture / Unknown 04/25/2025 4:21 AM EDT 04/25/2025 4:29 AM EDT Te Hope PA-C LAB BLOOD ORDERABLES Final R esult [facility] [address] [phone] * (ABNORMAL) Comprehensive metabolic panel (04/25/2025 4:21 AM EDT) Only the most recent of7 resultswithin the time period is included. Sodium 140 136 - 145 meq/L 04/25/2025 5:08 AM [facility] Potassium 4.6 3.4 - 5.1 meq/L 04/25/2025 5:08 AM [facility] Chloride 112 98 - 112 meq/L 04/25/2025 5:08 AM [facility] CO2 21(L) 22 - 29 meq/L 04/25/2025 5:08 AM [facility] Calcium 8.3(L) 8.4 - 10.2 mg/dL 04/25/2025 5:08 AM [facility] Glucose 98 82 - 115 mg/dL 04/25/2025 5:08 AM [facility] BUN 9.3 8.4 - 25.7 mg/dL 04/25/2025 5:08 AM [facility] Creatinine 1.04 0.72 - 1.25 mg/dL 04/25/2025 5:08 AM [facility] BUN/Creatinine 9 8 - 20 04/25/2025 5:08 AM [facility] eGFR (mL/min/1.73m2) 79 >=60 mL/min/1. 73m2 04/25/2025 5:08 AM [facility] Albumin 2.6(L) 3.5 - 5.0 g/dL 04/25/2025 5:08 AM [facility] Alkaline Phosphatase 77 40 - 150 U/L 04/25/2025 5:08 AM [facility] ALT <7 <=45 U/L 04/25/2025 5:08 AM [facility] Comment: ALT2 reagent used for testing does not contain P5P supplementation and therefore may miss ALT elevations in patients with B6 deficiency. This population may be as high as 10% in the [place], with risk factors including malabsorption, drug interactions, and alcoholic hepatitis. AST 20 11 - 34 U/L 04/25/2025 5:08 AM EDT [facility] Comment: AST2 reagent used for testing does not contain P5P supplementation and therefore may miss AST elevations in patients with B6 deficiency. This population may be as high as 10% in the [place], with risk factors including malabsorption, drug interactions, and alcoholic hepatitis. Total Bilirubin 0.3 0.2 - 1.2 mg/dL 04/25/2025 5:08 AM EDT [facility] Protein, Total 6.3(L) 6.4 - 8.3 g/dL 04/25/2025 5:08 AM EDT [facility] Globulin 3.7 2.5 - 4.1 g/dL 04/25/2025 5:08 AM EDT [facility] Anion Gap 12 4 - 12 04/25/2025 5:08 AM EDT [facility] A/G Ratio 0.7 0.7 - 1.9 04/25/2025 5:08 AM EDT [facility] Osmolality Calc 278.2 mOsm/kg 5:08 AM EDT [facility] Blood Venipuncture / Unknown 04/25/2025 4:21 AM EDT 04/25/2025 4:29 AM EDT Te Hope PA-C LAB BLOOD ORDERABLES Final R esult [facility] [address] [place] [address], [place] [phone] * XR chest AP portable (04/24/2025 4:19 [...] clear. There is no pneumothorax. Procedure Note aDvi Perez MD - 04/24/2025 PORTABLE CHEST 04/24/2025 4:19 PM HISTORY: Sepsis. COMPARISON: April 11, 2025. FINDINGS: The heart is normal in size. The patient is status post sternotomy for CABG. The mediastinum is unremarkable. The lungs are clear. There is no pneumothorax. IMPRESSION: No acute cardiopulmonary process. Images reviewed, interpreted, and dictated by Dr. Davi Perez. Transcribed by Mary Beth Ram Marixa Pennington APRN IMG DIAGNOSTIC IMAGING ORDERA BLES Final Result * (ABNORMAL) Lactic Acid with reflex (SJ) (04/24/2025 4:07 PM EDT) Only the most recent of3 resultswithin the time period is included. Lactic Acid Level (mmol/L) 2.4(HH) 0.5 - 2.2 mmol/L 04/24/2025 4:46 PM EDT [facility] Blood Venipuncture / Unknown 04/24/2025 4:07 PM EDT 04/24/2025 4:14 PM EDT Result [facility] Marixa Pennington APRN LAB BLOOD ORDERABLES Final Re sult [facility] [address] [phone] * Blood Culture (04/24/2025 4:07 PM EDT) Only the most recent of2 resultswithin the time period is included. Result No growth in 5 days 04/29/2025 5:01 PM EDT [facility] Blood Venipuncture / Unknown 04/24/2025 4:07 PM EDT 04/24/2025 4:14 PM EDT Marixa Pennington APRN MICROBIOLOGY - GENERAL ORDERA BLES Final Result Performing Organization Address [facility] Co de Phone Number [facility] [address] [phone] * ECG 12 lead (04/24/2025 3:54 PM EDT) Only the most recent of2 resultswithin the time period is included. VENTRICULAR RATE EKG/MIN 104 BPM GE MUSE ATRIAL RATE (MCT) 104 BPM GE MUSE MO Interval 129 ms GE MUSE QRS-INTERVAL (MSEC) 79 ms GE MUSE QT Interval 321 ms GE MUSE QTC Interval 422 ms GE MUSE P [place] 72 degrees GE MUSE R AXIS (MCT) 78 degrees GE MUSE T Wave [place] 59 degrees GE MUSE [place] Diagnosis Sinus tachycardia Nonspecific T wave abnormality Abnormal ECG No previous ECGs available Confirmed by Antonio hWeeler ([id number]) on 04/25/2025 1:31:49 PM GE MUSE 04/24/2025 3:54 PM EDT 04/25/2025 1:31 PM EDT us Marixa Pennington APRN ECG ORDERABLES Final Result Performing Organization Address [facility] Co de Phone Number GE MUSE * [...] - 200 U/L 04/16/2025 11:11 AM EDT [facility] Blood ENTIRE RIGHT UPPER ARM / Unknown Venipuncture / Unknown 04/16/2025 4:21 AM EDT 04/16/2025 4:45 AM EDT us Murtaza Amato MD LAB BLOOD ORDERABLES Final Re sult [facility] [address] [phone] * CT ABDOMEN/PELVIS WITH IV CONTRAST Standard [...] 9.1 K/ L 04/12/2025 4:24 AM EDT [facility] RBC 3.31(L) 4.63 - 6.08 M/ L 04/12/2025 4:24 AM EDT [facility] Hemoglobin 9.2(L) 13.7 - 17.5 GM/DL 04/12/2025 4:24 AM EDT [facility] Hematocrit 28.9(L) 40.1 - 51.0 % 04/12/2025 4:24 AM EDT [facility] MCV 87 79 - 92 fL 04/12/2025 4:24 AM EDT [facility] MCH 27.8 25.7 - 32.2 pg 04/12/2025 4:24 AM EDT [facility] MCHC 31.8(L) 32.3 - 36.5 GM/DL 04/12/2025 4:24 AM EDT [facility] RDW 14.7(H) 11.6 - 14.4 % 04/12/2025 4:24 AM EDT [facility] Platelets 225 140 - 375 K/CU MM 04/12/2025 4:24 AM EDT [facility] MPV 8.8(L) 9.4 - 12.4 fL 04/12/2025 4:24 AM EDT [facility] Blood ENTIRE RIGHT UPPER ARM / Unknown Venipuncture / Unknown 04/12/2025 4:06 AM EDT 04/12/2025 4:11 AM EDT Narrative [facility] - 04/12/2025 4:24 AM EDT Manual differentials can only be ordered once in a 24 hour time period. Please order CBC with Auto Diff if needed. Note: reference ranges were changed on 10/05/2023. us Murtaza Amato MD LAB BLOOD ORDERABLES Final Re sult [facility] [address] [place] [address], [place] [phone] * (ABNORMAL) Manual Differential (04/12/2025 4:06 AM EDT) Only the most recent of2 resultswithin the time period is included. Total Counted 100 04/12/2025 5:40 AM EDT [facility] % Neutros (manual) 83(H) 50 - 65 % 04/12/2025 5:40 AM EDT [facility] % Lymphs (manual) 5(L) 24 - 44 % 04/12/2025 5:40 AM EDT [facility] % Monos (manual) 10(H) 4 - 5 % 04/12/20 25 5:40 AM EDT [facility] % Baso (manual) 1 0 - 1 % 5:40 AM EDT [facility] % Metamyelo (manual) 1 0 - 1 % 04/12/2025 5:40 AM EDT [facility] RBC Morphology abnormal(A) Normal 5:40 AM EDT [facility] Platelet Estimate Adequate Adequate 04/12/2025 5:40 AM EDT [facility] Anisocytosis 1+ 04/12/2025 5:40 AM EDT [facility] Hypochromia 1+ 04/12/2025 5:40 AM EDT [facility] Ovalocytes 1+ 04/12/2025 5:40 AM EDT [facility] ANC# 10.54 K/ L 04/12/2025 5:40 AM EDT [facility] Blood ENTIRE RIGHT UPPER ARM / Unknown Venipuncture / Unknown 04/12/2025 4:06 AM EDT 04/12/2025 4:11 AM EDT us Murtaza Amato MD LAB BLOOD ORDERABLES Final Re sult [facility] [address] [phone] * MRSA Screen (04/11/2025 4:49 PM EDT) Pathologist [facility] MRSA by PCR [facility] MRSA Not Detected by PCR MRSA Not Detected by PCR DEVICE ID9 04/11/2025 7:22 PM EDT [facility] Nasal BOTH ANTERIOR NARES / Unknown 04/11/2025 4:49 PM EDT 04/11/2025 5:03 PM EDT Murtaza Amato MD MICROBIOLOGY - GENERAL ORDERA BLES Final Result [facility] [address] [phone] * CT DRAINAGE PERITONEAL/RETROPERITONEAL W GUIDANCE (04/11/2025 [...] abscess. . ATTENDING RADIOLOGIST: Dr. Gaviria. PHYSICIAN UPHOLSTERY REPAIRER: Jean Pierre Hughes PA-C. PROCEDURE: After informed consent was obtained and a time-out was performed, the patient was prepped and draped in the usual sterile fashion over the left groin. Utilizing local anesthesia and sterile technique with a catheter access needle, access to the fluid collection was obtained under direct CT guidance. An Amplatz wire was placed. Serial dilatation was performed. A 10 Ivorian pigtail catheter was placed looped in the [...] abscess. . ATTENDING RADIOLOGIST: Dr. Gaviria. PHYSICIAN UPHOLSTERY REPAIRER: Jean Pierre Hughes PA-C. PROCEDURE: After informed consent was obtained and a time-out was performed, the patient was prepped and draped in the usual sterile fashion over the left groin. Utilizing local anesthesia and sterile technique with a catheter access needle, access to the fluid collection was obtained under direct CT guidance. An Amplatz wire was placed. Serial dilatation was performed. A 10 Ivorian pigtail catheter was placed looped in the [...] Gaviria. Transcribed by Jean Pierre Hughes PA-C us Kulwinder Donovan MD IMG CT ORDERABLES Final Result * Micro Reference Lab (04/11/2025 4:26 PM EDT) Scan Result 04/27/2025 12:50 PM EDT [facility] NON-INTERFACED REFERENCE LAB Body Fluid RETROPERITONEAL COMPARTMENT STRUCTURE / Unknown 04/11/2025 4:26 PM EDT 04/11/2025 4:52 PM EDT us Kulwinder Donovan MD MICROBIOLOGY - GENERAL ORDERABLE S Final Result Performing Organization Address [facility]/ZIP Co de Phone Number [facility] NON-INTERFACED REFERENCE [facility] [place] * SPIN/CONCENTRATION CHARGE (04/11/2025 4:26 PM EDT) Concentration charged Done 04/23/2025 10:48 AM EDT [facility] Body Fluid RETROPERITONEAL COMPARTMENT STRUCTURE / Unknown 04/11/2025 4:26 PM EDT 04/11/2025 4:52 PM EDT us Kulwinder Donovan MD MICROBIOLOGY - GENERAL ORDERABLE S Final Result [facility] [address] [phone] * (ABNORMAL) Anaerobic Culture (04/11/2025 4:26 PM EDT) Result Parabacteroides distasonis(A) 04/16/2025 7:19 AM EDT [facility] Body Fluid RETROPERITONEAL COMPARTMENT STRUCTURE / Unknown 04/11/2025 4:26 PM EDT 04/11/2025 4:52 PM EDT Kulwinder Donovan MD MICROBIOLOGY - GENERAL ORDERABLE S Final Result [facility] [address] [place] [id number] [phone] * (ABNORMAL) Body Fluid Culture + Gram Stain (04/11/2025 4:26 PM EDT) Result Light Growth Enterococcus faecium(A) 04/16/2025 6:53 AM EDT [facility] Comment:Sent to reference la b for sensitivity testing. Result Light Growth Klebsiella pneumoniae(A) 04/16/2025 6:53 AM EDT [facility] Result Light Growth Clostridium tertium(A) 04/16/2025 6:53 AM EDT [facility] Comment:No susceptibility pe rformed Gram Stain Result Moderate gram positive cocci in pairs 04/16/2025 6:53 AM EDT [facility] Gram Stain Result Many WBCs 025 6:53 AM EDT [facility] Body Fluid RETROPERITONEAL COMPARTMENT STRUCTURE [...] ORDERABLE S Final Result Performing Organization Address [facility] Co de Phone Number [facility] [address] [phone] * Magnesium (04/10/2025 3:22 AM EDT) Only the most recent of2 resultswithin the time period is included. Magnesium 1.7 1.6 - 2.6 mg/dL 04/10/2025 4:06 AM EDT [facility] Blood Venipuncture / Unknown 04/10/2025 3:22 AM EDT 04/10/2025 3:32 AM EDT Jah Long DO LAB BLOOD ORDERABLES Final Re sult Performing Organization Address [facility] Co de Phone Number [facility] [address] [phone] * (ABNORMAL) CALCIUM Ionized (04/09/2025 8:18 PM EDT) Calcium Ionized 1.10(L) 1.12 - 1.32 mmol/L 04/09/2025 8:30 PM EDT [facility] Blood Venipuncture / Unknown 04/09/2025 8:18 PM EDT 04/09/2025 8:24 PM EDT us Wesley Goncalves APRN LAB BLOOD ORDERABLES Final Res ult Performing Organization Address [facility]/ZIP Co de Phone Number [facility] [address] [phone] * Phosphorus (04/09/2025 8:18 PM EDT) Phosphorus 3.5 2.5 - 4.5 mg/dL 04/09/2025 8:48 PM EDT [facility] Blood Venipuncture / Unknown 04/09/2025 8:18 PM EDT 04/09/2025 8:24 PM EDT us Wesley Goncalves ANDI LAB BLOOD ORDERABLES Final Res ult [facility] [address] [place] [place] [id number] [phone] * Tissue Exam (04/09/2025 9:50 AM EDT) AP RESULT See Note: PATHOLOGY AND CYTOLOGY [...] anvil or 2 end designated anastomotic donuts. [employer] sections are submitted as follows: A1: Proximal [...] sections are submitted. HDM See other report ([id number]) Tissue COLON STRUCTURE / Unknown 04/09/2025 9:50 AM EDT Tissue specimen (specimen) MESH / Unknown 04/09/2025 10:49 AM EDT us Chun Lockhart MD PATHOLOGY/CYTOLOGY ORDERABLE S Final Result [facility] [address] [place] [address] * AN SINGLE LUMEN INTUBATION (04/09/2025 8:12 AM EDT) Narrative Myranda Angeles CRNA - 04/09/2025 8:12 AM EDT Myranda Angeles CRNA 04/09/2025 9:27 AM Intubation Authorized by: Myranda Angeles CRNA Performed by: Myranda Cleaning Pridemarky Date/Time: 04/09/2025 8:12 AM Urgency: elective Indications [...] intubation, soft tissue same as preop assessment. Myranda Angeles CRNA ANESTHESIA ORDERABLES Final Result [...] patient tolerated procedure well with no complications Todd Okeefe MD ANESTHESIA ORDERABLES Edit ed [...] supine Prep: ChloraPrep Patient monitoring: heart rate, potline monitor and continuous pulse ox Block type: [...] Type and Screen (04/09/2025 7:00 AM EDT) [facility] [address] ABO/Rh B Positive 04/09/2025 6:07 AM EDT [facility] BLOOD [facility] (AL) Antibody Screen Negative 04/09/2025 6:07 AM EDT [facility] (AL) HISTCHK HIST CHECK PERFORMED 04/09/2025 6:07 AM EDT [facility] ([place]) Blood Venipuncture / Unknown 04/09/2025 7:00 AM EDT 04/09/2025 7:11 AM EDT us Todd Okeefe MD [facility] BLOOD BANK TEST ORDERA BLES Final Result Performing Organization Address City/[facility]/ZIP Co de Phone Number [facility] (AL) [address] [place] [address] * Glucose, iSTAT Meter (04/09/2025 6:49 AM EDT) [facility] [address] POC-GLUCOSE 101 70 - 105 mg/dL 04/09/2025 6:57 AM EDT [facility] Blood 04/09/2025 6:49 AM EDT 04/09/2025 6:57 AM EDT Narrative [facility] - 04/09/2025 6:57 AM EDT Green Chain Operator ID is - [id number] us Chun Lockhart MD POINT OF CARE TEST ORDERABLE S Final Result [facility] [address] [place] [address] * POC-Potassium (04/09/2025 6:49 AM EDT) [facility] [address] POC Potassium 4.3 3.5 - 4.9 mmol/L 04/09/2025 6:57 AM EDT [facility] Blood 04/09/2025 6:49 AM EDT 04/09/2025 6:57 AM EDT Narrative [facility] - 04/09/2025 6:57 AM EDT Green Chain Operator ID is - [id number] Chun Lockhart MD POINT OF CARE TEST ORDERABLE S Final Result [facility] [address] [phone] * X-ray chest PA and lateral (03/12/2025 [...] Roro Gaviria. Transcribed by Eri Gaston PA-C. us Chun Lockhart MD IMG DIAGNOSTIC IMAGING ORDER AIDAN Final Result * (ABNORMAL) Hemoglobin A1c (03/12/2025 2:45 PM EDT) Hemoglobin A1C 6.1(H) 4.0 - 5.6 % 03/12/2025 3:06 PM EDT [facility] Comment: Hemoglobin A1C levels are related to mean glucose during the preceding 2-3 months. Less than 7% demonstrates glycemic control in diabetic patients. Hemoglobin AlC % Suggested Diagnosis > or = 6.5 Diabetic 5.7 - 6.4 Prediabetic <5.7 Non-diabetic eAVG Glucose 128.37(H) 70 - 126 mg/dL 03/12/2025 3:06 PM EDT [facility] Blood Venipuncture / Unknown 03/12/2025 2:45 PM EDT 03/12/2025 2:45 PM EDT Chun Lockhart MD LAB BLOOD ORDERABLES Final R esult [facility] [address] [phone] from Last 3 Months Insurance [employer] MEDICARE PPO [facility] ADV DUAL COMPLETE Advance Directives For more information, please contact: [phone] * Full Code (Latest Code Status on File) Date Activated Date Inactivated Comments 04/24/2025 4:33 PM 05/01/2025 7:36 PM * Full Code Date Activated Date Inactivated Comments 04/12/2025 6:48 AM 04/16/2025 11:57 AM Care Teams Management Planner Relationship Specialty Start Date End Date Tay Vaca MD [address] [place] [address] PCP - General Family Medicine 04/24/25
--- OUTSIDE RECORDS SUMMARY | 2025-05-29 10:02 | XMS_ITS | Encounter Summary ---
Author Organization Healthcare Address [address] [place] [address] Care Team Providers Care Client Services Assistant Name Role Phone Unavailable Primary Care Provider Unavailabl e Encounter Details Date Type Department Care Team (Late st Contact Info) Description 04/15/2025 Orders Only External Location [address] [place] [address] Provider, External Social History Tobacco Use Types [...] [facility]K OUTSIDE IMAGES 04/15/2025 3:47 PM EDT documented in this encounter Results * CT MSK OUTSIDE IMAGES (04/15/2025 3:47 PM EDT) Anatomical Region Laterality Modality Computed Tomogra phy 04/15/2025 3:47 PM EDT us External Provider IMG CT PROCEDURES Edited Resul t - Final documented in this encounter Visit Diagnoses Not on filedocumented in this encounter
--- OUTSIDE RECORDS SUMMARY | 2025-05-29 10:02 | XMS_ITS | Encounter Summary ---
Author Organization Healthcare Address [address] [place] [address] Care Team Providers Care Certified Orthotic Fitter Name Role Phone Unavailable Primary Care Provider Unavailabl e Encounter Details Date Type Department Care Team (Late st Contact Info) Description 05/15/2025 Telephone [place] Clinic Urology [address] [place] [address] Oumou Kaminski I, RN [facility]Y [facility]IC Social History Tobacco Use Types Packs/Day Years Used Date Smoking Tobacco: Never Assessed Sex and Gender Information Value Date Recorded Sex Assigned at Not on file Legal Sex Male 6:55 PM EDT Gender Identity Not on file Sexual Orientation Not on file documented as of this encounter Miscellaneous Notes * Telephone Encounter - Oumou Kaminski I, RN - 05/15/2025 11:45 AM EDT Called to schedule urology appointment; no answer, mailbox full. documented in this encounter Plan of Treatment Not on file documented as of this encounter Visit Diagnoses Not on filedocumented in this encounter
--- OUTSIDE RECORDS SUMMARY | 2025-05-29 10:02 | XMS_ITS | Encounter Summary ---
Author Organization Healthcare Address [address] [place] [address] Care Team Providers Care Business Administrator Name Role Phone Unavailable Primary Care Provider Unavailabl e Encounter Details Date Type Department Care Team (Late st Contact Info) Description 05/25/2025 Telephone [place] [facility] [address] [place] [address] Oumou Kaminski I, RN [facility] Social History Tobacco Use Types Packs/Day Years Used Date Smoking Tobacco: Never Assessed Sex and Gender Information Value Date Recorded Sex Assigned at Not on file Legal Sex Male 6:55 PM EDT Gender Identity Not on file Sexual Orientation Not on file documented as of this encounter Miscellaneous Notes * Telephone Encounter - Oumou Kaminski I, RN - 05/25/2025 10:06 AM EDT Attempted to call several times to schedule urology appointment; call not going through. Letter sent-unable to contact. documented in this encounter Plan of Treatment Not on file documented as of this encounter Visit Diagnoses Not on filedocumented in this encounter
--- OUTSIDE RECORDS SUMMARY | 2025-05-29 10:02 | XMS_ITS | Clinical Summary ---
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 Not on file 10 /05/2023 Preferred Language Not on file 06/14/2023 Sex and Gender Information Value Date Recorded Sex Assigned at Not on file Legal Sex Male 12:15 PM EDT Gender Identity Not on file Sexual Orientation Not on file Plan of Treatment Health Maintenance Due Date Last Done Comments ANNUAL WELLNESS VISIT 1959 HEPATITIS C SCREENING 1959 DIABETIC EYE EXAM 1969 DIABETIC FOOT EXAM 1969 URINE MICROALBUMIN-CREATININ E RATIO (uACR) 1969 Pneumococcal Vaccine 50+ (1 of 2 - PCV) 1978 TDAP/TD VACCINES (1 - Tdap) 1978 COLOGUARD 02/23/2004 COLON CANCER SCREENING 5 YEA R SIGMOIDOSCOPY 02/23/2004 COLONOSCOPY 02/23/2004 COLORECTAL CANCER SCREENING 02/23/2004 CT COLONOGRAPHY 02/23/2004 FECAL OCCULT BLOOD TEST 02/23/2004 FIT Testing (1 year) 02/23/2004 ZOSTER VACCINE (1 of 2) 2009 INFLUENZA VACCINE 04/06/2025 COVID-19 Vaccine (1 - 2023-2 5 season) 2025 HEMOGLOBIN A1C 09/12/2025 03/12/2025, 03/12/2025 AAA SCREEN ONCE Completed 04/15/2025, 04/06, 04/15/2025, Additional history exists Procedures Procedure Name Priority Date/Time Associated Diagnosis Comments CBC AND DIFFERENTIAL STAT 05/22/2025 1:11 PM EDT Cellulitis of groin 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, with long-term current use of insulin, macular edema presence unspecified, unspecified laterality, unspecified proliferative retinopathy type Intraocular lens associated postoperative inflammation, subsequent encounter Abscess of groin CBC WITH AUTO DIFFERENTIAL STAT 05/22/2025 1:11 [...] postoperative inflammation, subsequent encounter Abscess of groin from Last 3 Months Results * (ABNORMAL) CBC Auto Differential (05/22/2025 1:11 PM EDT) WBC 5.68 3.40 - 10.80 10*3/mm3 05/22/2025 1:28 PM EDT [facility] RBC 4.29 4.14 - 5.80 10*6/mm3 05/22/2025 1:28 PM EDT [facility] Hemoglobin 11.7(L) 13.0 - 17.7 g/dL 05/22/2025 1:28 PM EDT [facility] Hematocrit 36.8(L) 37.5 - 51.0 % 05/22/2025 1:28 PM EDT [facility] MCV 85.8 79.0 - 97.0 fL 05/22/2025 1:28 PM EDT [facility] MCH 27.3 26.6 - 33.0 pg 05/22/2025 1:28 PM EDT [facility] MCHC 31.8 31.5 - 35.7 g/dL 05/22/2025 1:28 PM EDT [facility] RDW 14.6 12.3 - 15.4 % 05/22/2025 1:28 PM EDT [facility] RDW-SD 45.3 37.0 - 54.0 fl 05/22/2025 1:28 PM EDT [facility] MPV 9.3 6.0 - 12.0 fL 05/22/2025 1:28 PM EDT [facility] Platelets 186 140 - 450 10*3/mm3 05/22/2025 1:28 PM EDT [facility] Neutrophil % 60.5 42.7 - 76.0 % 05/22/2025 1:28 PM EDT [facility] Lymphocyte % 26.2 19.6 - 45.3 % 05/22/2025 1:28 PM EDT [facility] Monocyte % 10.4 5.0 - 12.0 % 05/22/2025 1:28 PM EDT [facility] Eosinophil % 1.6 0.3 - 6.2 % 05/22/2025 1:28 PM EDT [facility] Basophil % 0.9 0.0 - 1.5 % 05/22/2025 1:[facility] Immature Grans % 0.4 0.0 - 0.5 % 05/22/2025 1:28 PM [facility] Neutrophils, Absolute 3.44 1.70 - 7.00 10*3/mm3 05/22/2025 1:28 PM [facility] Lymphocytes, Absolute 1.49 0.70 - 3.10 10*3/mm3 05/22/2025 1:28 PM [facility] Monocytes, Absolute 0.59 0.10 - 0.90 10*3/mm3 05/22/2025 1:28 PM EDT [facility] Eosinophils, Absolute 0.09 0.00 - 0.40 10*3/mm3 05/22/2025 1:28 PM [facility] Basophils, Absolute 0.05 0.00 - 0.20 10*3/mm3 05/22/2025 1:28 PM EDT [facility] Immature Grans, Absolute 0.02 0.00 - 0.05 10*3/mm3 05/22/2025 1:28 PM [facility] nRBC 0.0 0.0 - 0.2 /100 WBC 05/22/2025 1:28 PM [facility] Blood Venipuncture / Unknown 05/22/2025 1:11 PM EDT 05/22/2025 1:11 PM EDT Murtaza Amato MD LAB BLOOD ORDERABLES Final Result Performing Organization Address City/[facility]/ZIP Co de Phone Number [facility]
[address] [place] [address], * C-reactive Protein (05/22/2025 1:11 PM EDT) C-Reactive Protein <0.30 0.00 - 0.50 mg/dL 05/22/2025 1:52 PM EDT [facility] Blood Venipuncture / Unknown 05/22/2025 1:11 PM EDT 05/22/2025 1:11 PM EDT Murtaza Amato MD LAB BLOOD ORDERABLES Final Result Performing Organization Address City/[facility]/ZIP Co de Phone Number [facility]
[address] [place] [address], * (ABNORMAL) Comprehensive Metabolic Panel (05/22/2025 1:11 PM EDT) Glucose 102(H) 65 - 99 mg/dL 05/22/2025 1:52 PM EDT [facility] BUN 11.4 8.0 - 23.0 mg/dL 05/22/2025 1:52 PM EDT [facility] Creatinine 0.80 0.76 - 1.27 mg/dL 05/22/2025 1:52 PM EDT [facility] Sodium 140 136 - 145 mmol/L 05/22/2025 1:52 PM EDT [facility] Potassium 4.4 3.5 - 5.2 mmol/L 05/22/2025 1:52 PM EDT [facility] Chloride 108(H) 98 - 107 mmol/L 05/22/2025 1:52 PM EDT [facility] CO2 20.7(L) 22.0 - 29.0 mmol/L 05/22/2025 1:52 PM EDT [facility] Calcium 9.0 8.6 - 10.5 mg/dL 05/22/2025 1:52 PM EDT [facility] Total Protein 6.9 6.0 - 8.5 g/dL 05/22/2025 1:52 PM EDT [facility] Albumin 4.0 3.5 - 5.2 g/dL 05/22/2025 1:52 PM EDT [facility] ALT (SGPT) 7 1 - 41 U/L 05/22/2025 1:52 PM EDT [facility] AST (SGOT) 14 1 - 40 U/L 05/22/2025 1:52 PM EDT [facility] Alkaline Phosphatase 66 39 - 117 U/L 05/22/2025 1:52 PM EDT [facility] Total Bilirubin <0.2 0.0 - 1.2 mg/dL 05/22/2025 1:52 PM EDT [facility] Globulin 2.9 gm/dL 05/22/2025 1:52 PM EDT [facility] Comment:Calculated Result A/G Ratio 1.4 g/dL 05/22/2025 1:52 PM EDT [facility] BUN/Creatinine Ratio 14.3 7.0 - 25.0 05/22/2025 1:52 PM EDT [facility] Anion Gap 11.3 5.0 - 15.0 mmol/L 05/22/2025 1:52 PM EDT [facility] eGFR 97.6 >60.0 mL/min/1.7 3 05/22/2025 1:52 PM EDT [facility] Blood Venipuncture / Unknown 05/22/2025 1:11 PM EDT 05/22/2025 1:11 PM EDT Narrative [facility] - 05/22/2025 1:52 PM EDT GFR [...] Amato MD LAB BLOOD ORDERABLES Final Result [facility]
[address] [place] [address], from Last 3 Months Insurance MEDICARE ADVANTAGE [employer] Care Teams Ratoprinter Relationship Specialty Start Date End Date Provider, [place] [address] PCP - General 05/22/25
[2025-05-29] MEDS: DIATRIZOATE MEGLUMINE 18% 300ML BOTTLE 150 ML IJ (10:41)
== END 2025-05-29 23:59 | disposition home or self-care (01) ==
LOC: RAD 09:49
PROVIDERS: PCP Family Medicine; Visit Provider Student in an Organized Health Care Education/Training Program
DX: N32.1 Vesicointestinal fistula (principal)
CPT/HCPCS: 74430; Q9958